=== PATIENT | male | born 1935 | race Caucasian/White ===

== ENCOUNTER 2023-01-23 18:56 | Observation (INO) | payer MEDICARE, SELFPAY ==
[2023-01-23] VITALS (28 sets, daily range): BP systolic 114–135; BP diastolic 60–69; PULSE 63–82; RESP 7–38; TEMP 36.6; O2SAT 76–98; BMI 28.7
--- NOTE | 2023-01-23 | CT_ITS ---
The [address] [address] Patient Name: RACHEL HOLLINGSWORTH MRN: [id number] date: 1935 Sex: M Assigned Patient Location: ER Current Patient Location: ER Accession/Order Number: [id number] Exam Date: 01/23/2023 18:55 Report Date: 01/23/2023 19:26 At the request of: KEYANA LITTLE Procedure: CT stroke head/brain wo con EXAMINATION: CT stroke head/brain wo con, 01/23/2023 6:55 PM EDT HISTORY: Altered mental status. COMPARISON: CT head 05/05/2022. TECHNIQUE: CT scan of the head was performed without IV contrast. CT dose reduction technique was used, including Automated Exposure Control. FINDINGS: BRAIN PARENCHYMA/CSF SPACES: Moderately enlarged ventricles and sulci consistent with atrophy. There is no hemorrhage, mass effect or midline shift. There is atherosclerotic calcification of the vertebral and bilateral carotid arteries. 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 There is an additional stable chronic left occipital infarct. There is low-attenuation throughout the white matter compatible with chronic microvascular ischemia. There is a small chronic lacunar infarct in the left blanco radiata and a small chronic lacunar infarct in the right internal capsule. PARANASAL SINUSES: Clear. SKULL BASE AND CALVARIUM: Normal. EXTRACRANIAL SOFT TISSUES: Normal. CT/CT stroke head/brain wo con IMPRESSION: 1. No acute intracranial abnormality. 2. Atherosclerotic calcification, chronic microvascular ischemia and chronic infarcts as described above. 3. Moderate atrophy. Electronically authenticated by: STEVO DAVID Date: 01/23/2023 19:26
--- NOTE | 2023-01-23 19:09 | ECG_ITS ---
The [facility] Test Date: 2023-01-23 Pat Name: RACHEL HOLLINGSWORTH Department: Room: - Gender: Male Nursing Coordinator: : 1935 Requested By: DEVEN NINO Order Number: [id number] Reading MD: KATHE DAVE Measurements Intervals [place] Rate: 66 P: 30 DC: 192 QRS: -40 QRSD: 140 T: 30 QT: 436 QTc: 450 Interpretive Statements 1100 Sinus rhythm 2450 Right bundle branch block 7200 Abnormal left axis deviation 9150 abnormal ECG No previous ECG available for comparison Electronically Signed On 01-24-2023 7:25:14 EDT by KATHE DAVE
--- NOTE | 2023-01-23 19:23 | ED_ITS ---
HPI - General Adult General Chief complaint: Syncope Stated complaint: SYNCOPY Time Seen by Provider: 01/23/23 19:01 Mode of arrival: ambulance History of Present Illness HPI narrative: patient apparently had a syncopal episode at home. He was also confused. EMS b rought the patient for evaluation. On arrival he does not know why he was here. He does not recall passing out or falling. He denies any injury to the head, neck or back. He denies any extremity injury. He denies any chest pain or shortness of breath. He denies any nausea, vomiting, diarrhea. He denies any recent injury or illness. His only complaint is some global weakness Related Data Allergies Allergy/AdvReac Type Severity Reaction Status Date / Time codine Allergy Unknown Uncoded 01/23/23 19:28 Exam Narrative Exam Narrative: Nurses notes and vital signs reviewed and patient is not hypoxic. afebrile General: Well-appearing and in no apparent distress. Skin: Warm, dry, no pallor noted. No rash. Head: Normocephalic, atraumatic. Neck: Supple, non-tender. Eye: Pupils are equal, round and EOMI. No scleral icterus. Ears, Nose, Mouth, and Throat: TM are clear, no nasal mucosal hypertrophy. Oral mucosa is moist, no posterior oropharynx erythema, uvula is mid-line Cardiovascular: Regular Rate and Rhythm without murmur, gallop or rub. Respiratory: No accessory muscle use or respiratory distress. Lungs are clear to auscultation, no wheezing, rales or rhonchi Chest Wall: no tenderness Back: No midline thoracic or lumbar vertebral tenderness. No CVA tenderness Musculoskeletal: normal ROM, no calf or popliteal tenderness, no lower extremity edema/swelling GI: Abdomen is soft, non-distended. Normal bowel sounds. No masses appreciated. No tenderness to palpation. No rebound, guarding, or rigidity noted. Neurological: A&O x4. mild left facial paralysis noted. No additional cranial nerve dysfunction observed. No truncal ataxia. Moves all extremities. Sensation intact. no upper or lower extremity drift. No neglect. able to repeat questions. NIH score equal 1 Psychiatric: Cooperative and interactive. Normal mood and affect. Constitutional Vital Signs, click to edit/add: Last Vital Signs Pulse 74 01/23/23 21:30 Resp 19 01/23/23 21:30 BP 132/63 01/23/23 21:00 Pulse Ox 97 01/23/23 21:30 O2 Del Method Room Air 01/23/23 19:07 Course Vital Signs Vital signs: Vital Signs Pulse Oximetry 98 01/23/23 19:06 Pulse Rate 74 01/23/23 21:30 Respiratory Rate 19 01/23/23 21:30 Blood Pressure 132/63 01/23/23 21:00 Pulse Oximetry 97 01/23/23 21:30 Oxygen Delivery Method Room Air 01/23/23 19:07 Medical Decision Making MDM Narrative Medical decision making narrative: patient was immediately sent for CT scanning of the brain per stroke protocol. He was then placed in room five.Patient was placed on cardiac rehab nurse and EKG obtained. Blood drawn and sent for evaluation. Urine also ordered to be obtained and sent for testing. When non contrast head CT was without ICH he was sent for CTA head and neck. Minimal decrease in Na, mildly increased BUN and Cr, elevated Glucose at 188, normal LFTs and negative UA. Nothing to account for the patient's syncope or altered mentation. On recheck at 2134, the patient's left facial asymmetry has resolved and he can move the face normally. His mentation has also improved. NIH now zero. 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 Patient does not have a local PCP - he used to see Dr Avila but I fired him . Call placed to Dr Reinoso, the on-call hospitalist, to discuss admission to Dr Mistry's service for further evaluation and monitoring following his syncopal event and likely TIA. We discussed the possibility of seizure vs syncope. In the end, he agreed to admit the patient on behalf of Dr Mistry, the day hospitalist paper cone grader - On observation basis, telemetry monitoring, [facility] floor. Patient agreeable to admission after discussion of his results once when his mentation had improved. Differential Diagnosis Differential Diagnosis: syncope, seizure, TIA, CVA, hyponatremia, dysrhythmia, orthostasis, UTI Lab Data Lab results reviewed: Yes I reviewed the patient's lab results Labs: Lab Results 01/23/23 01/23/23 Range/Units 19:25 20:00 WBC 7.3 (4.0-11.0) 10^3/uL RBC 3.79 L (4.70-6.10) 10^6/uL Hgb 11.4 L (14.0-18.0) g/dL Hct 33.4 L (42.0-54.0) % MCV 88.1 (80.0-94.0) fL MCH 30.1 (25.9-34.0) pg MCHC 34.1 (29.9-35.2) g/dL RDW 12.9 (11.0-15.0) % Plt Count 216 (150-450) 10^3/uL MPV 10.1 (9.5-13.5) fL Neut % (Auto) 51.3 (43.0-75.0) % Lymph % (Auto) 30.4 (20.5-60.0) % [place] % (Auto) 7.2 (1.7-12.0) % Eos % (Auto) 9.3 H (0.9-7.0) % Baso % (Auto) 1.4 (0.2-2.0) % Neut # (Auto) 3.8 (1.4-6.5) 10^3/uL Lymph # (Auto) 2.2 (1.2-3.8) 10^3/uL [place] # (Auto) 0.5 (0.3-0.8) 10^3/uL Eos # (Auto) 0.7 (0.0-0.7) 10^3/uL Baso # (Auto) 0.1 (0.0-0.1) 10^3/uL Abs Immat Gran (auto) 0.03 (0.00-0.03) 10^3/uL Imm/Tot Granulo (auto) 0.4 (0.0-0.5) % Sodium 133 L (136-145) mmol/L Potassium 3.8 (3.5-5.1) mmol/L Chloride 101 (98-107) mmol/L Carbon Dioxide 26.7 (21.0-32.0) mmol/L Anion Gap 9.1 BUN 25.0 H (7.0-18.0) mg/dL Creatinine 1.94 H (0.70-1.30) mg/dL Est GFR ( Amer) 40 L (>=60) Est GFR (Non-Af Amer) 33 L (>=60) BUN/Creatinine Ratio 12.9 Glucose 188 H (74-106) mg/dL Calcium 8.4 L (8.5-10.1) mg/dL Total Bilirubin 0.2 (0.2-1.0) mg/dL AST 11 L (15-37) U/L ALT <6 L (16-63) U/L Alkaline Phosphatase 74 (46-116) U/L Troponin I High Sens 15.4 (4.0-76.1) pg/mL NT-Pro-B Natriuret Pep 1153.0 (<=1800.0) pg/mL Total Protein 6.6 (6.4-8.2) g/dL Albumin 2.8 L (3.4-5.0) g/dL Globulin 3.8 g/dL Albumin/Globulin Ratio 0.7 Urine Color Lt. yellow (YELLOW) Urine Clarity Clear (CLEAR) Urine pH 6.0 (5.0-9.0) Ur Specific [place] 1.020 (1.005-1.025) Urine Protein >=300 A (NEG/TRACE) mg/dL Urine Glucose (UA) 500 A (NEGATIVE) mg/dL Urine Ketones Negative (NEGATIVE) mg/dL Urine Occult Blood Negative (NEGATIVE) Urine Nitrite Negative (NEGATIVE) Urine Bilirubin Negative (NEGATIVE) Urine Urobilinogen 0.2 (0.2-1.0) EU/dL Ur Leukocyte Esterase Negative (NEGATIVE) Urine RBC 0-2 (0-2) #/HPF Urine WBC 0-2 A (NONE SEEN) #/HPF Ur Squamous Epith Cells Rare (NONE/RARE) #/LPF Urine Crystals None seen (None Seen) #/HPF Urine Bacteria None seen (NONE SEEN) #/HPF Urine Casts Seen A (NONE SEEN) #/LPF Hyaline Casts Few Coarse Granular Casts Rare Urine Mucus Trace A (NONE SEEN) Ur Culture Indicated? No Imaging Data CT scan - head: Radiologist's impression: Patient Name: RACHEL HOLLINGSWORTH MRN: [id number] date: 1935 Sex: M Assigned Patient Location: ER Current Patient Location: ER Accession/Order Number: [id number] Exam Date: 01/23/2023 18:55 Report Date: 01/23/2023 19:26 At the request of: KEYANA LITTLE Procedure: CT stroke head/brain wo con EXAMINATION: CT stroke head/brain wo con, 01/23/2023 6:55 PM EDT HISTORY: Altered mental status. COMPARISON: CT head 05/05/2022. TECHNIQUE: CT scan of the head was performed without IV contrast. CT dose reduction technique was used, including Automated Exposure Control. FINDINGS: BRAIN PARENCHYMA/CSF SPACES: Moderately enlarged ventricles and sulci consistent with atrophy. There is no hemorrhage, mass effect or midline shift. There is atherosclerotic calcification of the vertebral and bilateral carotid arteries. 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 There is an additional stable chronic left occipital infarct. There is low-attenuation throughout the white matter compatible with chronic microvascular ischemia. There is a small chronic lacunar infarct in the left blanco radiata and a small chronic lacunar infarct in the right internal capsule. PARANASAL SINUSES: Clear. SKULL BASE AND CALVARIUM: Normal. EXTRACRANIAL SOFT TISSUES: Normal. IMPRESSION: 1. No acute intracranial abnormality. 2. Atherosclerotic calcification, chronic microvascular ischemia and chronic infarcts as described above. 3. Moderate atrophy. Electronically authenticated by: STEVO DAVID Date: 01/23/2023 19:26 CT angio head & neck: Radiologist's impression: Patient Name: RACHEL HOLLINGSWORTH MRN: [id number] date: 1935 Sex: M Assigned Patient Location: Current Patient Location: Accession/Order Number: [id number] Exam Date: 01/23/2023 20:26 Report Date: 01/23/2023 21:29 At the request of: KEYANA LITTLE Procedure: CT angio neck EXAM: CT angio head, CT angio neck HISTORY: syncope, left facial paralysis COMPARISON: Head CT 01/23/2023. CT cervical spine 05/05/2022. CT head and neck angiogram 12/31/2019 TECHNIQUE: Contrast-enhanced axial CT to the head and neck was performed in the angiographic phase. Coronal and sagittal reformats provided. Dose reduction CT techniques were used, including automated exposure control. FINDINGS: NECK: There is a two-vessel aortic arch. Calcific atherosclerosis of the origins of the common carotid arteries without significant flow limiting stenosis. There is also calcific atherosclerosis at the origin of the right vertebral artery which is mildly narrowed. Left vertebral artery origin is occluded. The left vertebral artery is completely occluded at its origin with partial reconstitution seen distally near the skull base at the level of C1 and C2 vertebral bodies and finally with complete occlusion as it enters the skull base to the level of the basilar confluence. The right vertebral artery remains patent without dissection or significant flow-limiting stenosis. No aneurysmal dilatation. Calcific atherosclerosis of the, carotid arteries bilaterally without significant flow limiting stenosis. At the level of the carotid bulbs there is severe calcific atherosclerosis seen on the right with approximately 55 % narrowing of the proximal internal carotid artery by NASCET criteria. Calcific atherosclerosis also seen at the left carotid bulb without significant flow-limiting stenosis. The remainder of the internal carotid and external carotids are patent. HEAD: Calcific atherosclerosis of the cavernous internal carotid arteries without significant flow limiting stenosis. Bilateral ophthalmic arteries are pacified with contrast. The anterior cerebral and middle cerebral arteries are patent without flow-limiting stenosis or aneurysmal dilatation. Normal appearance of the anterior communicating artery. Posterior communicating arteries are not visualized. The bilateral posterior-inferior cerebellar arteries are not visualized. Prominent anterior inferior cerebellar arteries are visualized and appear patent. Superior cerebellar and the bilateral posterior cerebral arteries are patent. Normal appearance of the basilar artery. Other: Left thyroid lobe nodule measures approximately 11 mm. No cervical lymphadenopathy. The lung apices are clear. No acute or aggressive osseous abnormality. 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 Otherwise, no significant intracranial flow-limiting stenosis. Consider MRI for further evaluation. Calcific atherosclerosis of the carotid bulbs worst on the right with approximately 55 % narrowing of the proximal internal carotid artery. Electronically authenticated by: BONIFACIO PERALES Date: 01/23/2023 21:29 ECG Data Interpretation: EKG interpretation: Emergency Department physician interpretation. Normal sinus rhythm at 66bpm. RBBB. Left axis. normal VT and QTc intervals. no ST segment elevation or depression. Critical Care Time Critical Care Time Critical Care Time: Yes Total Critical Care Time: 45 (45 minutes Critical Care Time: ___ minutes, critical care time is separate from any procedures that are performed. The following was considered in the determination of critical care but not limited to the level medical decision-making, intensive cardiac and/or respiratory monitor, frequent vital sig) Attestation: Critical Care Time: 45 minutes, critical care time is separate from any procedures that are performed. The following was considered in the determination of critical care but not limited to the level medical decision-making, intensive cardiac and/or respiratory monitor, frequent vital sign monitoring, evaluation of laboratory studies, evaluation of a radiographic studies, oxygen monitoring a nd constant monitoring. Discharge Plan Discharge Chief Complaint: Syncope Clinical Impression: TIA (transient ischemic attack), Syncope Patient Disposition: Admitted as Observation Time of Disposition Decision: 22:00 Additional Instructions: Dr Mistry's service; admission orders per Dr Reinoso
--- NOTE | 2023-01-23 19:30 | CT_ITS ---
The [address] [address] Patient Name: RACHEL HOLLINGSWORTH MRN: [id number] date: 1935 Sex: M Assigned Patient Location: ER Current Patient Location: ER Accession/Order Number: [id number] Exam Date: 01/23/2023 20:26 Report Date: 01/23/2023 21:29 At the request of: KEYANA LITTLE Procedure: CT angio head EXAM: CT angio head, CT angio neck HISTORY: syncope, left facial paralysis COMPARISON: Head CT 01/23/2023. CT cervical spine 05/05/2022. CT head and neck angiogram 12/31/2019 TECHNIQUE: Contrast-enhanced axial CT to the head and neck was performed in the angiographic phase. Coronal and sagittal reformats provided. Dose reduction CT techniques were used, including automated exposure control. FINDINGS: NECK: There is a two-vessel aortic arch. Calcific atherosclerosis of the origins of the common carotid arteries without significant flow limiting stenosis. There is also calcific atherosclerosis at the origin of the right vertebral artery which is mildly narrowed. Left vertebral artery origin is occluded. The left vertebral artery is completely occluded at its origin with partial reconstitution seen distally near the skull base at the level of C1 and C2 vertebral bodies and finally with complete occlusion as it enters the skull base to the level of the basilar confluence. The right vertebral artery remains patent without dissection or significant flow-limiting stenosis. No aneurysmal dilatation. Calcific atherosclerosis of the, carotid arteries bilaterally without significant flow limiting stenosis. At the level of the carotid bulbs there is severe calcific atherosclerosis seen on the right with approximately 55 % narrowing of the proximal internal carotid artery by NASCET criteria. Calcific atherosclerosis also seen at the left carotid bulb without significant flow-limiting stenosis. The remainder of the internal carotid and external carotids are patent. HEAD: Calcific atherosclerosis of the cavernous internal carotid arteries without significant flow limiting stenosis. Bilateral ophthalmic arteries are pacified with contrast. The anterior cerebral and middle cerebral arteries are patent without flow-limiting stenosis or aneurysmal dilatation. Normal appearance of the anterior communicating artery. Posterior communicating arteries are not visualized. The bilateral posterior-inferior cerebellar arteries are not visualized. Prominent anterior inferior cerebellar arteries are visualized and appear patent. Superior cerebellar and the bilateral posterior cerebral arteries are patent. Normal appearance of the basilar artery. Other: Left thyroid lobe nodule measures approximately 11 mm. No cervical lymphadenopathy. The lung apices are clear. No acute or aggressive osseous abnormality. 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 Otherwise, no significant intracranial flow-limiting stenosis. Consider MRI for further evaluation. Calcific atherosclerosis of the carotid bulbs worst on the right with approximately 55 % narrowing of the proximal internal carotid artery. Electronically authenticated by: BONIFACIO PERALES Date: 01/23/2023 21:29
--- NOTE | 2023-01-23 19:30 | CT_ITS ---
The [address] [address] Patient Name: RACHEL HOLLINGSWORTH MRN: [id number] date: 1935 Sex: M Assigned Patient Location: ER Current Patient Location: Accession/Order Number: [id number] Exam Date: 01/23/2023 20:26 Report Date: 01/23/2023 21:29 At the request of: KEYANA LITTLE Procedure: CT angio neck EXAM: CT angio head, CT angio neck HISTORY: syncope, left facial paralysis COMPARISON: Head CT 01/23/2023. CT cervical spine 05/05/2022. CT head and neck angiogram 12/31/2019 TECHNIQUE: Contrast-enhanced axial CT to the head and neck was performed in the angiographic phase. Coronal and sagittal reformats provided. Dose reduction CT techniques were used, including automated exposure control. FINDINGS: NECK: There is a two-vessel aortic arch. Calcific atherosclerosis of the origins of the common carotid arteries without significant flow limiting stenosis. There is also calcific atherosclerosis at the origin of the right vertebral artery which is mildly narrowed. Left vertebral artery origin is occluded. The left vertebral artery is completely occluded at its origin with partial reconstitution seen distally near the skull base at the level of C1 and C2 vertebral bodies and finally with complete occlusion as it enters the skull base to the level of the basilar confluence. The right vertebral artery remains patent without dissection or significant flow-limiting stenosis. No aneurysmal dilatation. Calcific atherosclerosis of the, carotid arteries bilaterally without significant flow limiting stenosis. At the level of the carotid bulbs there is severe calcific atherosclerosis seen on the right with approximately 55 % narrowing of the proximal internal carotid artery by NASCET criteria. Calcific atherosclerosis also seen at the left carotid bulb without significant flow-limiting stenosis. The remainder of the internal carotid and external carotids are patent. HEAD: Calcific atherosclerosis of the cavernous internal carotid arteries without significant flow limiting stenosis. Bilateral ophthalmic arteries are pacified with contrast. The anterior cerebral and middle cerebral arteries are patent without flow-limiting stenosis or aneurysmal dilatation. Normal appearance of the anterior communicating artery. Posterior communicating arteries are not visualized. The bilateral posterior-inferior cerebellar arteries are not visualized. Prominent anterior inferior cerebellar arteries are visualized and appear patent. Superior cerebellar and the bilateral posterior cerebral arteries are patent. Normal appearance of the basilar artery. Other: Left thyroid lobe nodule measures approximately 11 mm. No cervical lymphadenopathy. The lung apices are clear. No acute or aggressive osseous abnormality. 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 Otherwise, no significant intracranial flow-limiting stenosis. Consider MRI for further evaluation. Calcific atherosclerosis of the carotid bulbs worst on the right with approximately 55 % narrowing of the proximal internal carotid artery. Electronically authenticated by: BONIFACIO PERALES Date: 01/23/2023 21:29
[2023-01-23 19:33] LABS: Basophils Absolute Auto 0.1 10^3/uL (0.0-0.1); Basophils Percent Auto 1.4 % (0.2-2.0); Eosinophils Absolute Auto 0.7 10^3/uL (0.0-0.7); Eosinophils Percent Auto 9.3 % (0.9-7.0); Hematocrit 33.4 % (42.0-54.0); Hemoglobin 11.4 g/dL (14.0-18.0); Immature Granulocytes Abs Auto 0.03 10^3/uL (0.00-0.03); Immature Granulocytes Pct Auto 0.4 % (0.0-0.5); Lymphocytes Absolute Auto 2.2 10^3/uL (1.2-3.8); Lymphocytes Percent Auto 30.4 % (20.5-60.0); Mean Corpuscular HGB Conc 34.1 g/dL (29.9-35.2); Mean Corpuscular Hemoglobin 30.1 pg (25.9-34.0); Mean Corpuscular Volume 88.1 fL (80.0-94.0); Mean Platelet Volume 10.1 fL (9.5-13.5); Monocytes Absolute Auto 0.5 10^3/uL (0.3-0.8); Monocytes Percent Auto 7.2 % (1.7-12.0); Neutrophils Absolute Auto 3.8 10^3/uL (1.4-6.5); Neutrophils Percent Auto 51.3 % (43.0-75.0); Platelet Count 216 10^3/uL (150-450); Red Blood Count 3.79 10^6/uL (4.70-6.10); Red Cell Distribution Width 12.9 % (11.0-15.0); White Blood Count 7.3 10^3/uL (4.0-11.0)
[2023-01-23] MEDS: 0.9 % SODIUM CHLORIDE 1,000 ML 1000 ML IV (19:40)
[2023-01-23 19:58] LABS: Albumin Globulin Ratio 0.7; Albumin Level 2.8 g/dL (3.4-5.0); Alkaline Phosphatase 74 U/L (46-116); Anion Gap 9.1; Aspartate Amino Transferase 11 U/L (15-37); BUN Creatinine Ratio 12.9; Bilirubin Total 0.2 mg/dL (0.2-1.0); Calcium 8.4 mg/dL (8.5-10.1); Carbon Dioxide 26.7 mmol/L (21.0-32.0); Chloride 101 mmol/L (98-107); Estimated GFR (African America 40 (>=60); Estimated GFR (Non-African Ame 33 (>=60); Globulin 3.8 g/dL; Glucose 188 mg/dL (74-106); Potassium 3.8 mmol/L (3.5-5.1); Sodium 133 mmol/L (136-145); Total Protein 6.6 g/dL (6.4-8.2); Troponin I High Sensitivity 15.4 pg/mL (4.0-76.1)
[2023-01-23 20:00] LABS: Alanine Aminotransferase <6 U/L (16-63)
[2023-01-23 20:18] LABS: Bilirubin Urine NEGATIVE (NEGATIVE); Blood Urine NEGATIVE (NEGATIVE); Clarity Urine CLEAR (CLEAR); Color Urine LT. YELLOW (YELLOW); Glucose Urine UA 500 mg/dL (NEGATIVE); Ketones Urine NEGATIVE (NEGATIVE); Leukocyte Esterase Urine NEGATIVE (NEGATIVE); Nitrite Urine NEGATIVE (NEGATIVE); Protein Urine >=300 mg/dL (NEG/TRACE); Urobilinogen Urine 0.2 EU/dL (0.2-1.0)
[2023-01-23 20:19] LABS: Urine Microscopic Indicated YES
[2023-01-23 20:31] LABS: Bacteria Urine NONE SEEN #/HPF (NONE SEEN); Cast Seen? SEEN #/LPF (NONE SEEN); Coarse Granular Casts Urine RARE; Crystals Seen? None Seen #/HPF (None Seen); Hyaline Casts Urine FEW; Mucus Urine TRACE (NONE SEEN); RBC Urine 0-2 #/HPF (0-2); Squamous Epithelial Cell Urine RARE #/LPF (NONE/RARE); Urine Culture Indicated NO; WBC Urine 0-2 #/HPF (NONE SEEN)
--- NOTE | 2023-01-23 23:46 | PC.NURSE ---
Patient has red area to coccyx, both legs red and scaly. Toenails long and thick.
[2023-01-24] VITALS (14 sets, daily range): BP systolic 124–171; BP diastolic 62–81; PULSE 62–79; RESP 16–20; TEMP 36.1–37; O2SAT 93–95
--- NOTE | 2023-01-24 | MR_ITS ---
[address] [address] Patient Name: RACHEL HOLLINGSWORTH MRN: [id number] date: 1935 Sex: M Assigned Patient Location: MS Current Patient Location: MS Accession/Order Number: [id number] Exam Date: 01/24/2023 14:55 Report Date: 01/24/2023 16:50 At the request of: BERTA CROSS Procedure: MR angio neck wo con EXAM: MR angio neck wo con HISTORY: left vertebral artery occlusion COMPARISON: CT angiogram of the neck from 01/23/2023. TECHNIQUE: [id number] MR angiogram was obtained through the neck. Three-dimensional rotational reconstructions were acquired on independent workstation.Carotid stenosis is reported according to NASCET criteria. FINDINGS: Loss of normal flow signal within the left vertebral artery correlating to the known occlusion on the previous CT angiogram of the neck. The right vertebral artery is patent. The aortic arch and branch vessel origins are not included. Calcified plaque of the right internal carotid artery proximally with approximately 62% stenosis. Left proximal internal carotid artery plaque with less than 50% stenosis. MR/MR angio neck wo con IMPRESSION: 1. Right proximal internal carotid artery 62% stenosis. 2. Occlusion of the left vertebral artery. Electronically authenticated by: DUANE CARPENTER Date: 01/24/2023 16:50
--- NOTE | 2023-01-24 00:19 | MR_ITS ---
The [address] [address] Patient Name: RACHEL HOLLINGSWORTH MRN: [id number] date: 1935 Sex: M Assigned Patient Location: MS Current Patient Location: MS Accession/Order Number: [id number] Exam Date: 01/24/2023 14:55 Report Date: 01/24/2023 16:39 At the request of: ENEDINA Lisset SISTER Procedure: MR angio head wo con EXAM: MR angio head wo con HISTORY: CVA COMPARISON: CT angiogram of the head from 01/23/2023. TECHNIQUE: [id number] MR angiogram was performed through the head. Three-dimensional rotational reconstructions were acquired workstation. FINDINGS: Calcified plaque of the internal carotid arteries with moderate stenosis of the cavernous portions. The middle cerebral arteries, anterior cerebral arteries, and the anterior communicating artery are patent. The left vertebral artery flow-void is decreased in conspicuity from prior correlating to the occlusion on previous CT angiogram. The right vertebral artery, bilateral posterior inferior cerebellar arteries, superior cerebellar arteries, and the posterior cerebral arteries are patent. No aneurysm. MR/MR angio head wo con IMPRESSION: 1. Moderate stenosis of the internal carotid arteries cavernous segments. 2. Occlusion of left vertebral artery again noted. Electronically authenticated by: DUANE CARPENTER Date: 01/24/2023 16:39
--- NOTE | 2023-01-24 00:24 | CA_ITS ---
Patient: RACHEL HOLLINGSWORTH Exam Date: 01/24/2023 : 1935 Gender:M Ordering : Libby Mistry . Admission #: [id number] Family : DR CARVALHO Reina NINO Order #: [id number] CLICK HERE TO VIEW EXAM ECHOCARDIOGRAM REPORT PROCEDURE: CA ECHO DOPPLER COMPLETE INDICATIONS: Syncope, CABG, CHF, hypertension, diabetes COMPARISON: None. DESCRIPTION: COMPLETE ECHOCARDIOGRAM Real-time transthoracic echocardiography with 2D, M-mode, spectral and color flow Doppler performed. QUALITY: Technical quality was good. LEFT VENTRICLE: Normal chamber size. Thickened septal wall. Normal systolic function. LV EF: Normal left ventricular ejection fraction, (>55%). DIASTOLIC: Normal diastolic function. ATRIAL SEPTUM: LEFT ATRIUM: Normal chamber size. RIGHT ATRIUM: Normal chamber size. RIGHT VENTRICLE: Normal chamber size. Normal right ventricular systolic function. TRICUSPID VALVE: Normal mobility and thickness. No stenosis with trivial regurgitation. No evidence of pulmonary hypertension. RVSP 25 mmHg MITRAL VALVE: Normal mobility and thickness. No evidence of mitral valve stenosis. Mild mitral annular calcification. Trivial mitral regurgitation. AORTIC VALVE: Normal trileaflet appearance. Mildly calcified aortic valve. Normal leaflet mobility. No evidence of aortic valve stenosis. No aortic regurgitation. AORTIC ROOT: Normal diameter and appearance. PULMONIC VALVE: Normal thickness and mobility. No stenosis. Trivial regurgitation. PERICARDIUM: No evidence of pericardial effusion. IVC: Not well visualized. PLEURA: CONCLUSION: 1. Normal ventricular systolic function. LVEF is 55%. 2. Normal diastolic function. 3. No significant valvular dysfunction. 4. Normal right-sided pressures. 5. No pericardial effusion. Adult Echocardiography Procedure Report Left Ventricle LVEDD (3.7 - 5.6 cm): 4.00 cm LVESD (2.2 - 4.0 cm): 2.74 cm LVIVS thickness (0.6 - 1.2 cm): 1.50 cm LVPW thickness (0.5 - 1.0 cm): 1.11 cm e': 0.09 m/s E - e': 8.57 LVOT Max Gradient: 4.19 mm[Hg], 3.82 mm[Hg] LVOT Area (cm2): 1.00 m/s Peak Velocity (LVOT): 1.02 m/s, 0.98 m/s Mean Velocity (LVOT): 0.73 m/s LVOT Diameter 2.35 cm Left Atrium LA Volume Index (2D A2C): 25.26 ml/m2 Left Atrium Systolic Dimension: 3.58 cm Mitral Valve MV E to A Ratio: 0.71 Mitral Valve A-Wave Peak Velocity: 1.04 m/s Mitral Valve E-Wave Peak Velocity: 0.74 m/s Right Ventricle Aorta AO Root Diam: 4.15 cm Ascending Ao Diam: 2.71 cm Aortic Valve AoV Area (Peak Corky): 2.95 cm2, 3.02 cm2 AoV Area (VTI): 2.90 cm2, 2.83 cm2 Peak Velocity(Antegrade Flow): 1.47 m/s Peak Gradient(Antegrade Flow): 8.66 mm[Hg] Mean Velocity(Antegrade Flow): 0.95 m/s Mean Gradient(Antegrade Flow): 4.22 mm[Hg] Velocity Time Integral: 33.50 cm Tricuspid Valve Peak Velocity (Regurgitant Flow): 2.34 m/s Pulmonic Valve Peak Velocity: 1.06 m/s Peak Gradient: 4.95 mm[Hg], 4.11 mm[Hg] Right Atrium Right Atrium Systolic Pressure: 29.62 ml, 29.62 ml Dictated by: Benjamin Taylor M.D. on 01/24/2023 at 17:26 Approved by: Benjamin Taylor M.D. on 01/24/2023 at 17:28
--- NOTE | 2023-01-24 00:27 | P.PN_ITS ---
Progress Note: Subjective Subjective Interval history: CC: Syncopal episode HPI: This is a 87 years old male who brought in to emergency room for evaluation of a syncopal episode. Patient is a poor historian. Majority of information obtained from the medical records and from the medical staff. Patient tells me that he has not been feeling himself for the last few days, but cannot specify what exactly been bothering him. I was trying to get out of patient if any new medications been started or any medications stopped lately but he is not sure about it. Patient is now taking his medications consistently either. He is in charge of preparing his medical pillbox by himself. Patient lives with his [facility]. Apparently lately it was an infestation of the bedbugs in the house. They have been trying to remedy that. Patient denies any chest pain, palpitations, shortness of breath, fever, cough, nausea, vomiting or diarrhea. Originally on presentation to emergency room patient was oriented x1. Lately his condition improved and he is back to his normal self. Stroke work-up was done in the emergency room and has been negative so far. Exam Narrative Exam Narrative: Physical Exam: Not in distress, pleasant, lucid, cooperative, Head - atraumatic, eyes - pupils equal, round, reactive to light, extra ocular movement intact, MMM Neck - supple, thyroid not enlarged, LN not palpated Lungs - clear to auscultation, no dullness on percussion CVS - heart sounds S1, S2, no additional murmurs gallop, regular rate and rhythm Gastrointestinal?abdomen is soft, non-tender, non-distended, no organomegaly, positive bowel sounds Extremities no clubbing, cyanosis or edema Neurological?cranial nerve II?XII grossly intact, no meningeal signs, no cerebellar signs, no sensory deficit Musculoskeletal - 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, no effusions, ROM preserved Dermatological - the skin dry, warm, no rashes Psychiatric?patient is AAO X3, patient has normal affect Constitutional Vital Signs, click to edit/add: Last Vital Signs Temp 97.8 F 01/23/23 22:58 Pulse 79 01/24/23 00:00 Resp 18 01/23/23 22:58 BP 118/68 01/23/23 22:58 Pulse Ox 97 01/23/23 22:58 O2 Del Method Room Air 01/23/23 22:58 Progress Note: Objective Labs Labs: Short CBC 01/23/23 Range/Units 19:25 WBC 7.3 (4.0-11.0) 10^3/uL Hgb 11.4 L (14.0-18.0) g/dL Hct 33.4 L (42.0-54.0) % Plt Count 216 (150-450) 10^3/uL BMP 01/23/23 19:25 Sodium 133 L Potassium 3.8 Chloride 101 Carbon Dioxide 26.7 BUN 25.0 H Creatinine 1.94 H Glucose 188 H Calcium 8.4 L Liver Function 01/23/23 Range/Units 19:25 Total Bilirubin 0.2 (0.2-1.0) mg/dL AST 11 L (15-37) U/L ALT <6 L (16-63) U/L Alkaline Phosphatase 74 (46-116) U/L Albumin 2.8 L (3.4-5.0) g/dL Urine 01/23/23 Range/Units 20:00 Urine Color Lt. yellow (YELLOW) Urine Clarity Clear (CLEAR) Urine pH 6.0 (5.0-9.0) Ur Specific [place] 1.020 (1.005-1.025) Urine Protein >=300 A (NEG/TRACE) mg/dL Urine Glucose (UA) 500 A (NEGATIVE) mg/dL Progress Note: A&P Assessment and Plan (1) Syncope: Assessment and Plan: 1. Syncope - reason unclear - monitor on telemetry - gentle IVF - check orthostatic VSs - check ECHO and carotid us - trend Myron in case this was related to acute CAD - fall precautions (2) TIA (transient ischemic attack): Assessment and Plan: CVA - patient admitted with acute neurological deficit - As per evaluation in ER patient did not qualify for a tPa treatment - Admit to telemetry - Frequent neuro-checks - Will obtain MRI of the brain and MRA of the Head and Neck - Will obtain an ECHO with bubbles - F/U with Neurologist for further recommendations Secondary prevention ? will make sure patient is on Full dose of EC ASA and at least moderate potency dose of Atorvastatin unless contraindicated Tertiary prevention ? fall/aspiration precautions are in place - DVT prophylaxis (3) Hypertension: Assessment and Plan: Permissive hypertension going to be allowed Very fine continue home medications (4) Diabetes: Assessment and Plan: DM- continue with ADA diet - hold off oral hypoglycemic agents while in the hospital to avoid hypoglycemic episodes - frequent accuchecks (TID AC + HS) - will provide coverage with long acting insulin as well as short acting insulin with meals - adjust as needed - hypoglycemia protocol in place (5) CHF (congestive heart failure): Assessment and Plan: Patient is dry. I started him on gentle, judicious IV fluid resuscitation (6) Bypass graft stenosis: Assessment and Plan: Very fine continue home medications Plan END: As the provider for the telehealth service, I attest that I introduced myself to the patient, provided my credentials, disclosed by location and determined that based on a review of the patient's chart and discussion with members of the patient's treatment team, telemedicine via real-time, 2 way, and interactive audio and video platform is an appropriate and effective means of providing the service. ?The patient and I mutually agree this visit is appropriate for t elemedicine. ?The virtual encounter was taken place from? [place], [place]. ?The encounter took approximately 35 minutes. ?The nurse was present during the entire time and I was able to move the stethoscope in appropriate directions. ?The patient was evaluated at the Hospital ? Portions of this note may be dictated using [employer] voice recognition software. Variances in spelling and vocabulary are possible and unintentional. Not all errors may be caught and/or corrected. Please notify the author if any discrepancies are noted and/or if the meaning of any statement is unclear.? ? Patient verbally consented for treatment via video visit with patient currently located at the [facility] and provider located in [place]. Telemedicine Attestation Telemedicine Attestation I conducted this encounter from [[place]] via secure live, [id number] video conference with the patient, located at [facility] with [TIA]. Prior to the interview, the risks and benefits of telemedicine were discussed with the patient and verbal consent was obtained.
[2023-01-24] MEDS: ATORVASTATIN CALCIUM 40 MG TABLET PO (01:02)
[2023-01-24] MEDS: ASPIRIN 325 MG TABLET PO ×2 (01:03→08:35)
[2023-01-24] MEDS: 0.9 % SODIUM CHLORIDE 1,000 ML 75 ML IV (01:03)
[2023-01-24 05:07] LABS: Basophils Absolute Auto 0.1 10^3/uL (0.0-0.1); Basophils Percent Auto 1.2 % (0.2-2.0); Eosinophils Absolute Auto 0.5 10^3/uL (0.0-0.7); Eosinophils Percent Auto 6.8 % (0.9-7.0); Hemoglobin 10.4 g/dL (14.0-18.0); Immature Granulocytes Abs Auto 0.02 10^3/uL (0.00-0.03); Immature Granulocytes Pct Auto 0.3 % (0.0-0.5); Lymphocytes Absolute Auto 2.3 10^3/uL (1.2-3.8); Mean Corpuscular HGB Conc 33.5 g/dL (29.9-35.2); Mean Corpuscular Hemoglobin 29.8 pg (25.9-34.0); Mean Corpuscular Volume 88.8 fL (80.0-94.0); Mean Platelet Volume 10.1 fL (9.5-13.5); Monocytes Absolute Auto 0.6 10^3/uL (0.3-0.8); Monocytes Percent Auto 7.4 % (1.7-12.0); Neutrophils Percent Auto 53.3 % (43.0-75.0); Platelet Count 201 10^3/uL (150-450); Red Blood Count 3.49 10^6/uL (4.70-6.10); Red Cell Distribution Width 12.8 % (11.0-15.0); White Blood Count 7.5 10^3/uL (4.0-11.0)
[2023-01-24 05:36] LABS: Magnesium 1.8 mg/dL (1.8-2.4); Prealbumin 18.1 mg/dL (20.9-45.5)
[2023-01-24 05:38] LABS: Chol HDL Ratio 5.9; Cholesterol 229 mg/dL (<=200); HDL Cholesterol 39 mg/dL (40-60); Triglycerides 213 mg/dL (<=150); VLDL CHOLESTEROL 42.6 mg/dL
[2023-01-24 05:41] LABS: Anion Gap 11.4; Calcium 8.1 mg/dL (8.5-10.1); Carbon Dioxide 25.6 mmol/L (21.0-32.0); Chloride 105 mmol/L (98-107); Estimated GFR (African America 43 (>=60); Estimated GFR (Non-African Ame 35 (>=60); Glucose 234 mg/dL (74-106); Sodium 138 mmol/L (136-145)
[2023-01-24] MEDS: INSULIN ASPART 300 UNIT/3 ML PEN SUBQ ×4 (08:32→22:16)
--- NOTE | 2023-01-24 10:40 | CM.NOTE ---
Rounds made with Dr. Mistry, awaiting neurology consult and MRI.
[2023-01-24 11:02] LABS: Glucometer 315 mg/dL (74-106)
--- NOTE | 2023-01-24 11:50 | P.HP_ITS ---
H&P: HPI History of Present Illness Chief complaint: SYNCOPY Narrative: patient is an 87-year-old gentleman with past medical history of insulin- dependent type 2 diabetes, hypertension, hyperlipidemia, who had a quadruple bypass with stent placement over the years and a ischemic stroke approximately three years ago. Patient was brought in to the Emergency Room yesterday with an episode of passing out. Patient states that he was the kitchen table and speaking with his grandson and before he knew it he was out. He denies falling and striking his head and it was the grandson called EMS. He says that he has been without his medications for several weeks possibly months. He has had a stockpile of his insulin and last had it yesterday. He has skipped around pharmacies as of late and said the latest he has been in [facility]. It doesn't sound like patient sees a family physician routinely but he does follow regularly with Dr. Calloway of [facility]. This morning he is in no acute distress he denies any issues or complaints he said he is just felt weak but he is also not been taking his medication like he supposed to. He denies any issues with speech or swallowing denies any numbness and tingling or visual changes. He says he lives in his own home but his granddaughter and grea t-grandchildren live in the home as well. He has been having many issues with bedbugs and has spent a lot of money trying to eradicate them with no success. He feels his granddaughter is very busy and he is not able to get his round or chest medications like he used to. He does have a walker that he uses to get around in the house. Denies any recent falls. He is not having any active chest pain shortness of breath or heart palpitations. He denies any increased swelling or any recent sicknesses. Review of Systems ROS Narrative ROS: a complete review of systems were reviewed with patient and are positive as below or listed in History of Chief Complaint. General: no fever, chills, night sweats Head: no headache, trauma, visual changes, nausea or vomiting Skin: no reported rashes, itching or sores Eyes: no blurriness of vision Ears: no reported hearing loss, vertigo, earache, or tinnitus Throat: no sore throat, hoarseness, swelling of neck, or tongue pain Heart: no chest pain Lungs: no shortness of breath or cough GI: no diarrhea or vomiting/nausea Urinary: no urinary urgency, frequency or pain Neuro: no numbness or tingling HEM: no bleeding issues or bruising ENDO: no thyroid problems Psych: no anxiety or depression [facility] Medical History (Updated 01/24/23 @ 12:02 by Libby Mistry DO) Surgical History Family History Mother Family history of CHF (congestive heart failure) Family history of hypertension Family history of myocardial infarction Father Family history of CHF (congestive heart failure) Family history of COPD (chronic obstructive pulmonary disease) Family history of cancer Family history of diabetes mellitus Family history of hypertension Family history of myocardial infarction Son Family history of cancer Family history of diabetes mellitus Social History Within the past year, how often did you have a drink containing alcohol: never Within the past year, how often did you have six or more drinks on one occasion: never Score interpretation: A score less than 4 is consistent with normal alcohol consumption. 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 Known occupational exposures/hazards: No Highest level of school completed/degree received: 9th grade Are you now , , , , never or living with a partner: In a typical week, how many times do you talk on the telephone with family, friends, or neighbors: never How often do you get together with friends or relatives: never How often do you attend hoahaoism or mandaeism services: never Do you belong to any clubs or organizations such as hoahaoism groups unions, fraternal or athletic groups, or school groups: no Total score: 0 Score interpretation: A score of less than or equal to 1 indicates the most socially isolated. Little interest or pleasure in doing things: nearly every day Feeling down, depressed, or hopeless: nearly every day Feel stressed/tense/nervous/anxious/difficulty sleeping: only a little Life stressors: recent of family or friend Life stressor details: brothers Do you think of yourself as: straight/heterosexual Gender Identity: male Meds Home Medications and Allergies Allergies Allergy/AdvReac Type Severity Reaction Status Date / Time codine Allergy Unknown Uncoded 01/23/23 19:28 Exam Narrative Exam Narrative: General: Patient is alert, and oriented to person, place and time with normal affect, proper hygiene Skin: 2 small papular delgado on the left upper extremity that look like bug bites Head: atraumatic, acephalic Eyes: PERRLA, no nystagmus present, conjunctiva clear, no scleral icterus Ears: normal Tympanic Membrane, normal gross auditory acuity Nose: symmetric, no discharge, no maxillary or frontal sinus tenderness Mouth/Throat: no erythema, exudate, or tonsillar enlargement, missing dentition Neck: no masses palpated, normal thyroid, no JVD or audible carotid bruits Heart: Normal rate and rhythm, no murmurs/rubs/gallops Lungs: no audible wheezes, crackles and normal breath sounds all lung aguero Abdomen: Normal audible bowel sounds, no distension, No palpable masses, no organomegaly, no rebound/guarding/ or rigidity Musculoskeletal: muscle atrophy noted, ROM is limited due to being in hospital bed, no swelling bilateral lower extremities Vascular: Normal carotid, radial, femoral, posterior tibial, and dorsalis pedis pulses Lymph: no supraclavicular, axillary, or anterior/posterior cervical adenopathy Neuro: CN II-X grossly intact, normal sensation upper and lower extremities Constitutional Vital Signs, click to edit/add: Last Vital Signs Temp 97.8 F 01/24/23 05:40 Pulse 72 01/24/23 07:55 Resp 18 01/24/23 05:40 BP 126/62 01/24/23 05:40 Pulse Ox 93 L 01/24/23 05:40 O2 Del Method Room Air 01/24/23 05:40 Results Labs Labs: Short CBC 01/23/23 01/24/23 Range/Units 19:25 04:22 WBC 7.3 7.5 (4.0-11.0) 10^3/uL Hgb 11.4 L 10.4 L (14.0-18.0) g/dL Hct 33.4 L 31.0 L (42.0-54.0) % Plt Count 216 201 (150-450) 10^3/uL BMP 01/23/23 01/24/23 19:25 04:22 Sodium 133 L 138 Potassium 3.8 4.0 Chloride 101 105 Carbon Dioxide 26.7 25.6 BUN 25.0 H 22.0 H Creatinine 1.94 H 1.84 H Glucose 188 H 234 H Calcium 8.4 L 8.1 L Liver Function 01/23/23 Range/Units 19:25 Total Bilirubin 0.2 (0.2-1.0) mg/dL AST 11 L (15-37) U/L ALT <6 L (16-63) U/L Alkaline Phosphatase 74 (46-116) U/L Albumin 2.8 L (3.4-5.0) g/dL Urine 01/23/23 Range/Units 20:00 Urine Color Lt. yellow (YELLOW) Urine Clarity Clear (CLEAR) Urine pH 6.0 (5.0-9.0) Ur Specific [place] 1.020 (1.005-1.025) Urine Protein >=300 A (NEG/TRACE) mg/dL Urine Glucose (UA) 500 A (NEGATIVE) mg/dL Assessment and Plan Assessment and Plan (1) Syncope: Assessment and Plan: Monitor on Telemetry, Cardiology consult, echocardiogram. EKG and electrolytes have all been normal. He has extensive heart history. May benefit from Holter or event monitor as outpatient and close follow up with cards. (2) TIA (transient ischemic attack): Assessment and Plan: No current neurological deficits noted on exam today, patient is alert and oriented to person, place and time. PT/OT for evaluation. CTA of the head and neck showed some chronic microvasular changes and chronic occlusion of the left Vertebral artery and 55% stenosis of the internal carotid Artery. HE is a known CAD patient. Will also get Telestroke input given his history of ischemic stroke prior. Aspirin and lipitor for now but may benefit from plavix. Would appreciate Stroke team input here. MRA head and neck without contrast (3) Hypertension: Assessment and Plan: will provide hydralazine as needed until we can receive a medication list (4) Diabetes: Assessment and Plan: SSI with [facility], [facility] finger sticks (5) CHF (congestive heart failure): Assessment and Plan: echo and cards consult. (6) Bypass graft stenosis: Assessment and Plan: history of CAD, medication non-compliance (7) LILIANA (acute kidney injury): Assessment and Plan: could be chronic vs contrast. monitor, avoid nephrotoxins. Plan patient is a full code lovenox for dvt prophylaxis and aspirin patient is observation, will check MRI today, probable discharge home tomorrow pending all the testing today.
--- NOTE | 2023-01-24 12:58 | SWNOTE1 ---
SW met with pt to discuss dc needs. Pt does live at home with his grand-daughter, her , and her 4 children that range from 8-2. Pt voices they all live with him. Pt uses a walker at home to get around. Pt voiced that his grand-daughter does do the grocery shopping and that his medications come in the mail, but he needs a refill currently. SW and pt discussed dc needs. Pt did talk about going to rehab at nursing facility. SW did let him know he is in observation status at this time and for medicare to pay for rehab he would require 3 day inpt stay. Pt did voice understanding. SW and pt spoke about home health at least coming in. Pt is open to this and he had [facility] home health in the past. SW to send referral to [facility]. SW also reviewed [facility] form with pt, he voiced understanding, no questions. Pt signed form, original given to pt and copy placed in chart. SW also let him know if he is still here Friday we can re-evaluate. Pt did voice his frustrations with the healthcare system.
--- NOTE | 2023-01-24 13:11 | SWNOTE1 ---
Pt did tell SW that his grand-daughter and her do work and they are busy, but if he really needed something then they do help. SW is unsure of the medication issue as pt stated he gets them through mail.
--- NOTE | 2023-01-24 15:23 | SWNOTE1 ---
ZITA received a call back from [facility], they can see in documentation that pt does not have a PCP because he voiced he fired Dr. Avila. In order for [facility] or any company to accept they would need a verbal from Dr. avila that he would follow. ZITA called office and they are closed. SW to follow up Friday with Dr. Hernadez office and they will have to send referral to [facility]. ZITA updated nursing.
[2023-01-24 16:49] LABS: Glucometer 373 mg/dL (74-106)
--- NOTE | 2023-01-24 17:05 | MR_ITS ---
The [place] [id number] Patient Name: RACHEL HOLLINGSWORTH MRN: [id number] date: 1935 Sex: M Assigned Patient Location: MS Current Patient Location: MS Accession/Order Number: [id number] Exam Date: 01/24/2023 18:05 Report Date: 01/25/2023 01:35 At the request of: BERTA CROSS Procedure: MR head/brain wo con INDICATION: 87 years old; Male. Symptom/Location/Duration: Syncope. TECHNIQUE: Multiplanar MRI brain was performed without contrast administration. Comparison: MR angiogram of the head and neck dated 01/24/2023 at 3:[address] angiogram of the head and neck dated 01/23/2023 at 8:30 PM. FINDINGS: POSTOPERATIVE CHANGES: None. BRAIN PARENCHYMA: There is a focal area of restricted diffusion present in the lateral aspect of the right thalamus/posterior limb of the right internal capsule. This is hyperintense on the diffusion images, 42/series 10/02/2003 and hypointense on the ADC map, image 15/series 5005. This is also visible on the FLAIR images, 15 and 16/series 7001. The appearance is consistent with an area of acute/early subacute lacunar infarction. Multiple areas of chronic infarction are present within the left cerebellum. Old lacunar infarction is present in the body the caudate on the left. No hemosiderin deposition is seen. Patchy and confluent hyperintensity is seen in the periventricular and subcortical white matter in the FLAIR images without restricted diffusion consistent with small vessel ischemic change. VENTRICLES/EXTRA-AXIAL: Enlarged, consistent with atrophy. VESSELS: There is flow void seen in the distal right vertebral and basilar arteries as well as the distal internal carotid arteries. There is absence of flow void seen in the V4 segment of the left vertebral artery consistent with occlusion. Please see the detailed description in the CT angiogram report. SINUSES/MASTOIDS: Visualized sinuses are clear. Mastoid thickening bilaterally worse on the right. MSK: Bone marrow signal is within normal limits. OTHER: None. MR/MR head/brain wo con IMPRESSION: 1. Acute/early subacute lacunar infarction posterior limb right internal capsule/lateral aspect of the right thalamus. Restricted diffusion is present. 2. Multiple areas of chronic infarction in the left cerebellum. 3. Old lacunar infarction body the caudate on the left. 4. Small vessel ischemic changes. 5. Atrophy. 6. Occlusion of the left vertebral artery. Please see the dictation of the CT angiogram of the head and neck for evaluation the intracranial vessels. A note was placed in the stat folder for notification the provider at 1:34 AM on 01/25/2023. Electronically authenticated by: ALESSANDRO PAGAN Date: 01/25/2023 01:35
--- NOTE | 2023-01-24 17:05 | US_ITS ---
[place] [id number] Patient Name: RACHEL HOLLINGSWORTH MRN: [id number] date: 1935 Sex: M Assigned Patient Location: MS Current Patient Location: MS Accession/Order Number: [id number] Exam Date: 01/24/2023 19:15 Report Date: 01/25/2023 09:16 At the request of: BERTA CROSS Procedure: US carotid duplex BI EXAMINATION: US carotid duplex BI HISTORY: carotid artery stenosis COMPARISON: No relevant comparison available. TECHNIQUE: Duplex Doppler ultrasound analysis of carotid and vertebral arteries. . Bilateral carotid arterial duplex examination was performed using B-mode, color flow and spectral analysis. Carotid stenosis is reported according to validated velocity parameters, similar to NASCET criteria. FINDINGS: RIGHT CAROTID ARTERY Moderate atherosclerotic plaque. 61% stenosis proximal ICA Subclavian: PSV: 133.8 cm/s cm/s EDV: 0.0 cm/s cm/s CCA: Prox: PSV: 110.2 cm/s cm/s EDV: 9.7 cm/s cm/s Mid: PSV: 141.7 cm/s cm/s EDV: 11.6 cm/s cm/s Distal: PSV: 137.8 cm/s cm/s EDV: 15.6 cm/s cm/s BULB: PSV: 149.6 cm/s cm/s EDV: 17.5 cm/s cm/s ICA: Prox: PSV: 147.6 cm/s cm/s EDV: 33.3 cm/s cm/s Mid: PSV: 158.5 cm/s cm/s EDV: 30.4 cm/s cm/s Distal: PSV: 127.8 cm/s cm/s EDV: 91.6 cm/s cm/s ECA: PSV: 186.3 cm/s cm/s EDV: 0.0 cm/s cm/s VERTEBRAL: PSV: 47.9 cm/s cm/s EDV: 13.0 cm/s cm/s Antegrade ICA/CCA ratio: PSV: 1.1 EDV: 2.6 LEFT CAROTID ARTERY moderate atherosclerotic plaque. 53% stenosis proximal ICA Subclavian: PSV: 160.0 cm/s cm/s EDV: 0.0 cm/s CCA: Prox: PSV: 117.8 cm/s cm/s EDV: 14.4 cm/s Mid: PSV: 106.4 cm/s cm/s EDV: 19.2 cm/s Distal: PSV: 120.5 cm/s cm/s EDV: 17.1 cm/s BULB: PSV: 88.2 cm/s cm/s EDV: 13.9 cm/s ICA: Prox: PSV: 252.1 cm/s cm/s EDV: 15.2 cm/s Mid: PSV: 336.1 cm/s cm/s EDV: 0.0 cm/s Distal: PSV: 125.1 cm/s cm/s EDV: 0.0 cm/s ECA: PSV: 62.0 cm/s cm/s EDV: 14.1 cm/s VERTEBRAL: Occluded ICA/CCA ratio: PSV: 2.8 EDV: 0.0 Limited exam with patient motion US/US carotid duplex BI IMPRESSION: Flow velocities suggests 0-49% flow stenosis in the right internal carotid artery and 50-69% flow stenosis in the left internal carotid artery Measurements show 61% flow stenosis proximal right, 53% flow stenosis proximal left internal carotid artery Occlusion of left vertebral artery Spectral Doppler US Thresholds (Reference: Marcos EG, et al. Radiology 2000; 214:247-252) Stenosis (%) PSV (cm/sec) VICA/VCCA 0-49 <150 <2.5 50-69 150-225 2.5-4.0 >70 >225 >4.0 Electronically authenticated by: RICHARD OREILLY Date: 01/25/2023 09:16
[2023-01-24] MEDS: ATORVASTATIN CALCIUM 40 MG TABLET 80 MG PO (21:46)
[2023-01-24] MEDS: CARVEDILOL 25 MG TABLET 12.5 MG PO (21:46)
[2023-01-24] MEDS: APIXABAN 5 MG TABLET 2.5 MG PO (21:46)
[2023-01-24 22:16] LABS: Glucometer 280 mg/dL (74-106)
[2023-01-25] VITALS (8 sets, daily range): BP systolic 177; BP diastolic 89; PULSE 57–68; RESP 16; TEMP 36.6; O2SAT 93
[2023-01-25 04:51] LABS: Basophils Absolute Auto 0.1 10^3/uL (0.0-0.1); Basophils Percent Auto 1.3 % (0.2-2.0); Eosinophils Absolute Auto 0.8 10^3/uL (0.0-0.7); Hematocrit 35.8 % (42.0-54.0); Hemoglobin 11.7 g/dL (14.0-18.0); Immature Granulocytes Abs Auto 0.02 10^3/uL (0.00-0.03); Immature Granulocytes Pct Auto 0.3 % (0.0-0.5); Lymphocytes Percent Auto 28.9 % (20.5-60.0); Mean Corpuscular HGB Conc 32.7 g/dL (29.9-35.2); Mean Corpuscular Hemoglobin 29.5 pg (25.9-34.0); Mean Corpuscular Volume 90.4 fL (80.0-94.0); Monocytes Absolute Auto 0.5 10^3/uL (0.3-0.8); Monocytes Percent Auto 7.5 % (1.7-12.0); Neutrophils Absolute Auto 3.5 10^3/uL (1.4-6.5); Platelet Count 196 10^3/uL (150-450); Red Blood Count 3.96 10^6/uL (4.70-6.10); Red Cell Distribution Width 12.7 % (11.0-15.0); White Blood Count 6.8 10^3/uL (4.0-11.0)
[2023-01-25 05:05] LABS: Alanine Aminotransferase <6 U/L (16-63); Albumin Globulin Ratio 0.7; Albumin Level 2.6 g/dL (3.4-5.0); Alkaline Phosphatase 71 U/L (46-116); Anion Gap 9.9; Aspartate Amino Transferase 13 U/L (15-37); BUN Creatinine Ratio 12.6; Bilirubin Total 0.2 mg/dL (0.2-1.0); Calcium 8.4 mg/dL (8.5-10.1); Carbon Dioxide 25.9 mmol/L (21.0-32.0); Chloride 100 mmol/L (98-107); Estimated GFR (African America 43 (>=60); Estimated GFR (Non-African Ame 35 (>=60); Globulin 3.6 g/dL; Glucose 251 mg/dL (74-106); Potassium 3.8 mmol/L (3.5-5.1); Sodium 132 mmol/L (136-145); Total Protein 6.2 g/dL (6.4-8.2)
[2023-01-25] MEDS: ACETAMINOPHEN 325 MG TABLET PO (05:53)
[2023-01-25] MEDS: AMIODARONE HCL 200 MG TABLET PO (08:27)
[2023-01-25] MEDS: OMEPRAZOLE 40 MG CAPSULE.DR PO (08:28)
[2023-01-25] MEDS: BUMETANIDE 1 MG TABLET PO (08:28)
[2023-01-25] MEDS: APIXABAN 5 MG TABLET 2.5 MG PO (08:28)
[2023-01-25] MEDS: FLUOXETINE HCL 10 MG CAPSULE PO (08:28)
[2023-01-25] MEDS: CLOPIDOGREL BISULFATE 75 MG TABLET PO (08:28)
[2023-01-25] MEDS: CARVEDILOL 25 MG TABLET 12.5 MG PO (08:28)
[2023-01-25] MEDS: LEVOTHYROXINE SODIUM 75 MCG TABLET PO (08:29)
[2023-01-25] MEDS: TAMSULOSIN HCL 0.4 MG CAPSULE PO (08:29)
[2023-01-25] MEDS: INSULIN ASPART 300 UNIT/3 ML PEN SUBQ ×2 (08:44→11:43)
[2023-01-25 08:48] LABS: Glucometer 240 mg/dL (74-106)
--- NOTE | 2023-01-25 09:25 | PT.DAILY ---
Physical Therapy Daily Note PT Daily Note/Assess Start: 01/25/23 09:23 Freq: Status: Active Protocol: Document 01/25/23 09:20 DONTAE (Rec: 01/25/23 09:25 DONTAE [id number]) Visit Not Completed Visit Not Completed Visit Not Completed Due to: Other Other Reason Visit Not Completed N/A 2 attempts, POC is 3-5x a week so will follow up at later time. Physical Therapy Daily Note/Assessment Time In/Time Out Time In 09:20 Time Out 09:21 GG. Functional Abilities and Goals-Complete for Swing Bed Patients Only [id number]. Self-Care [id number]. Mobility
[2023-01-25 11:48] LABS: Glucometer 310 mg/dL (74-106)
--- NOTE | 2023-01-25 13:12 | PM.DS1 ---
DS: Providers Provider Date of admission: 01/23/23 22:45 Primary care physician: DEVEN NINO Consults: 01/24/23 08:46 Consult to Telestroke Routine Consulting Provider: Hospitalist Reason for consultation: TIA symptoms and syncope Has provider been notified: No 01/24/23 08:48 Occupational Therapy Eval and Treat Routine Reason for consultation: weakness Has provider been notified: No Physical Therapy Eval and Treat Routine Reason for consultation: weakness Has provider been notified: No DS: Diagnosis Discharge Diagnosis (1) Acute ischemic vertebrobasilar artery thalamic stroke: (2) Syncope: (3) Peripheral vascular disease: (4) Type 2 diabetes mellitus with hyperglycemia: (5) Hypertension: (6) Coronary artery disease: (7) Dyslipidemia: (8) Chronic heart failure with preserved ejection fraction (HFpEF): (9) Paroxysmal atrial fibrillation: (10) Stage 3b chronic kidney disease: (11) Anemia in chronic kidney disease (CKD): DS: Summary Hospital Course Hospital Course: Reason for admission: See ER note and H&P for details. 87 y/o male with history of prior CVA, PVD, CAD, and CHF to ER after syncopal episode. Patient is poor historian and doesn't remember the event. Witnessed syncope by family and seemed confused after. No focal deficits and normal speech. Patient does not follow up with PCP or specialists and has not been taking his medication regularly. To ER and CT head negative. CTA head and neck showed known occlusion of left vertebral artery and carotid stenosis. Contacted tele-stroke and admitted for work up. Hospital course: Resumed plavix. Cardiology notes shows history of afib and resumed Eliquis. Lipitor increased. Echo performed and normal. Carotid US shows narrowing of carotids. MRI performed and showed acute to subacute infarct in right thalamus. Patient felt well and back to baseline. Evaluated by PT and recommend home health. Patient evaluated by tele-stroke and felt no need for emergent transfer. Discharged home in stable condition. Need to take medication daily as directed. Need to control DM and BP. F/u with neurology and vascular surgery in 1-2 weeks. Need to establish with new PCP. Time Spent with Patient Time attestation: Total time spent providing and/or coordinating discharge services: Quality: Stroke Onset of Symptoms Date: 01/23/23 Symptom Onset Unknown: Yes Exam Constitutional Vital Signs, click to edit/add: Last Vital Signs Temp 98 F 01/25/23 06:00 Pulse 66 01/25/23 12:11 Resp 16 01/25/23 06:00 BP 177/89 H 01/25/23 06:00 Pulse Ox 93 L 01/25/23 06:00 O2 Del Method Room Air 01/25/23 06:00 Documenting provider has reviewed patient's vital signs: yes Common normals: no apparent distress, oriented x3 and alert HENMT Common normals: normocephalic Eye Common normals: PERRL and EOMs intact bilaterally Respiratory Common normals: normal respiratory effort and clear to auscultation bilaterally Cardio Common normals: regular rate, regular rhythm, no gallops, no murmurs and no rub GI Common normals: Normal to inspection, nondistended, normoactive bowel sounds present and non-tender Extremity Common normals: no pedal edema Neuro Common normals: CN's II-XII intact bilaterally, moves all extremities, no focal motor deficits and no sensory deficits noted DS: Data Data Completed and Pending Labs on day of discharge: Labs from last 24 hours 01/25/23 01/25/23 01/25/23 11:40 08:37 04:37 WBC 6.8 RBC 3.96 L Hgb 11.7 L Hct 35.8 L MCV 90.4 MCH 29.5 MCHC 32.7 RDW 12.7 Plt Count 196 MPV 10.0 Neut % (Auto) 51.0 Lymph % (Auto) 28.9 [place] % (Auto) 7.5 Eos % (Auto) 11.0 H Baso % (Auto) 1.3 Neut # (Auto) 3.5 Lymph # (Auto) 2.0 [place] # (Auto) 0.5 Eos # (Auto) 0.8 H Baso # (Auto) 0.1 Abs Immat Gran (auto) 0.02 Imm/Tot Granulo (auto) 0.3 Sodium 132 L Potassium 3.8 Chloride 100 Carbon Dioxide 25.9 Anion Gap 9.9 BUN 23.0 H Creatinine 1.83 H Est GFR ( Amer) 43 L Est GFR (Non-Af Amer) 35 L BUN/Creatinine Ratio 12.6 Glucose 251 H Calcium 8.4 L Total Bilirubin 0.2 AST 13 L ALT <6 L Alkaline Phosphatase 71 Total Protein 6.2 L Albumin 2.6 L Globulin 3.6 Albumin/Globulin Ratio 0.7 POC Glucose 310 H 240 H 01/24/23 01/24/23 22:14 16:48 WBC RBC Hgb Hct MCV MCH MCHC RDW Plt Count MPV Neut % (Auto) Lymph % (Auto) [place] % (Auto) Eos % (Auto) Baso % (Auto) Neut # (Auto) Lymph # (Auto) [place] # (Auto) Eos # (Auto) Baso # (Auto) Abs Immat Gran (auto) Imm/Tot Granulo (auto) Sodium Potassium Chloride Carbon Dioxide Anion Gap BUN Creatinine Est GFR ( Amer) Est GFR (Non-Af Amer) BUN/Creatinine Ratio Glucose Calcium Total Bilirubin AST ALT Alkaline Phosphatase Total Protein Albumin Globulin Albumin/Globulin Ratio POC Glucose 280 H 373 H Discharge Plan Discharge Condition: Fair Discharge Medications: New atorvastatin 80 mg tablet 80 mg PO QPM Qty: 30 0RF Continued amiodarone [Pacerone] 200 mg tablet 200 mg PO DAILY bumetanide 1 mg tablet 1 mg PO DAILY carvedilol [Coreg] 25 mg tablet 25 mg PO BID Rx Instructions: must administer with a meal/food clopidogrel [Plavix] 75 mg tablet 75 mg PO DAILY Eliquis 2.5 mg tablet 2.5 mg PO BID fluoxetine 10 mg capsule 10 mg PO DAILY folic acid 1 mg tablet 1 mg PO DAILY levothyroxine 75 mcg capsule 75 mcg PO DAILY metformin 500 mg tablet 500 mg PO BID nitroglycerin 0.4 mg tablet, sublingual 0.4 mg sublingual Q5M PRN (Reason: chest pain) Rx Instructions: do not exceed 3 doses per episode pantoprazole [Protonix] 40 mg tablet,delayed release (DR/EC) 40 mg PO QAM potassium chloride 10 mEq tablet extended release 10 meq PO DAILY tamsulosin [Flomax] 0.4 mg capsule 0.4 mg PO DAILY valsartan 80 mg tablet 80 mg PO DAILY ergocalciferol (vitamin D2) 1,250 mcg (50,000 unit) capsule 50,000 unit PO DAILY vitamin B complex Capsule 1 cap PO DAILY Discontinued atorvastatin [Lipitor] 80 mg tablet 80 mg PO QPM Activity: resume usual activities as tolerated Diet: advance to your usual diet Forms: Portal Instructions Referrals: DEVEN NINO [Primary Care Provider] - 1 week Follow Up Appointments: Dr. Sanches's ( social worker clinical) office will contact Mr. Quijanoh when an appt. opens up for a follow-up. There is a waitlist into Feb. Office #: [phone]
--- NOTE | 2023-01-28 10:18 | CM.DCFOLLOWU ---
Person spoke with: patient How are you feeling? Not happy because I cannot do things I used to be able to do, like driving. How is your pain? None at this time Did you understand your discharge instructions? yes and my grand-daughter helps me, her and her family live with me. Do you have any questions about your discharge instructions? not at this time Were you given any prescriptions at discharge? yes I think my grand-daughter picked them up Were you able to get your prescriptions filled? see above Do you understand how to take your medications as ordered? yes Do you have any questions about your follow up appointment and do you plan to keep your follow up appointment? Grand-daughter is not home at this time. Highly encouraged patient when grand-daughter gets home to have her review his discharge instructions and ensure all of his follow up appointments have been or get scheduled. Pt. needs a follow up with PCP. Pt. stated he fired his PCP a while back. Reminded the patient how important these follow up appointments are with his health history and patient voiced understanding at this time and said he would talk with his grand-daugher who is not home at this time he stated she is at school. Is there anything else that you would like to discuss? none Questions/Comments/Concerns/Other: none other than the above.
--- NOTE | 2023-01-28 14:55 | SWNOTE1 ---
ZITA did follow up and call Dr. Avila's office today. Pt was in the system, but he has not been to an appointment in quite a long time. Nurse voiced he is not current with them at this time. SW checked pt's discharge instructions and a list of accepting PCP'S was given to pt at discharge.
== END 2023-01-25 15:20 | disposition home or self-care (01) ==
LOC: ER 22:01 → MS 22:55
PROVIDERS: Internal Medicine; Admitting Provider Family Medicine; Emergency Provider Emergency Medicine; PCP Family Medicine; Visit Provider Family Medicine
DX: I63.212 Cerebral infarction due to unspecified occlusion or stenosis of left vertebral artery (principal); R55 Syncope and collapse; I73.9 Peripheral vascular disease, unspecified; E11.65 Type 2 diabetes mellitus with hyperglycemia; I25.10 Atherosclerotic heart disease of native coronary artery without angina pectoris; E78.5 Hyperlipidemia, unspecified; I13.0 Hypertensive heart and chronic kidney disease with heart failure and stage 1 through stage 4 chronic kidney disease, or unspecified chronic kidney disease; I48.0 Paroxysmal atrial fibrillation; I50.32 Chronic diastolic (congestive) heart failure; N18.32 Chronic kidney disease, stage 3b; E11.22 Type 2 diabetes mellitus with diabetic chronic kidney disease; N17.9 Acute kidney failure, unspecified; D63.1 Anemia in chronic kidney disease; Z86.73 Personal history of transient ischemic attack (TIA), and cerebral infarction without residual deficits; Z79.01 Long term (current) use of anticoagulants; Z79.02 Long term (current) use of antithrombotics/antiplatelets; Z79.899 Other long term (current) drug therapy; Z79.84 Long term (current) use of oral hypoglycemic drugs; Z87.891 Personal history of nicotine dependence
CPT/HCPCS: 36415; 70450; 70496; 70498; 70544; 70547; 70551; 80048; 80053; 80061; 81001; 82948; 83735; 83880; 84134; 84484; 85025; 93005; 93306; 93880; 96360; 96361; 97162; 97165; 99285; G0378; Q3014; Q9966

== ENCOUNTER 2023-08-04 15:50 | Outpatient (OUT) | payer MEDICARE, SELFPAY ==
[2023-08-04 16:47] LABS: Thyroid Stimulating Hormone 15.163 uIU/mL (0.358-3.740)
== END 2023-08-04 15:51 | disposition home or self-care (01) ==
LOC: LAB 15:50
PROVIDERS: PCP Family Medicine; Visit Provider Internal Medicine Cardiovascular Disease
DX: E03.9 Hypothyroidism, unspecified (principal)
CPT/HCPCS: 36415; 84443

== ENCOUNTER 2023-10-20 00:47 | Emergency (ER) | payer MEDICARE, SELFPAY ==
[2023-10-20] VITALS (51 sets, daily range): BP systolic 96–134; BP diastolic 42–75; PULSE 68–95; TEMP 36.5–37; O2SAT 85–100; BMI 30.4
--- NOTE | 2023-10-20 00:51 | ECG_ITS ---
[facility] Test Date: 2023-10-20 Pat Name: RACHEL HOLLINGSWORTH Department: Room: - Gender: Male Estimating Manager: : 1935 Requested By: [id number] Order Number: [id number] Reading MD: KATHE DAVE Measurements Intervals [place] Rate: 82 P: 53 WV: 224 QRS: -45 QRSD: 146 T: 98 QT: 424 QTc: 463 Interpretive Statements 1100 Sinus rhythm 2231 First degree AV block 2450 Right bundle branch block 2630 Left anterior fascicular block [address] depression, consistent with subendocardial injury 9150 abnormal ECG Compared to ECG 01/23/2023 19:19:24 First degree AV block now present Left anterior fascicular block now present ST (T wave) deviation now present Left-axis deviation no longer present Electronically Signed On 10-21-2023 8:50:29 EDT by KATHE DAVE
--- OUTSIDE RECORDS SUMMARY | 2023-10-20 00:57 | XMS_ITS | CCD ---
Author Organization [facility] Care Team Providers Care Manager Equity Name Role Phone FELICE SANCHES Attending Unavailable NIKHIL AVILA [facility] Care Unavailable FELICE SANCHES Attending Unavailable NIKHIL AVILA [facility] Unavailable Nikhil Avila Unavailable Unavailable Unavailable Nikhil Avila [facility] Unavailab le Verónica, Dr. Felice Alvarado Referring Anita vailable Verónica, Dr. Felice Alvarado Attending Anita vailable Verónica, Dr. Felice Alvarado Attending Anita vailable Nikhil Avila [facility] Care Unavailab le Sanches, Dr. Felice Alvarado Referring Anita vailable BROCK SAMUELS Consulting Unavailable BROCK SAMUELS Attending Unavailable BROCK SAMUELS Admitting Unavailable TRUNG, DR NIKHIL Vill[facility]al [facility] Unavailable ABELARDO, DR JIAN Shields Consulting Unavailable ABELARDO, DR JIAN Shields Attending Unavailable ABELARDO, DR JIAN Shields Admitting Unavailable TRUNG, DR NIKHIL Vill[facility]al Primary [facility] Unavailable KARISHMA, DR KERI Villareal Consulting UnavailMACI Toussaint Consulting Unavailable ALEN MARAVILLA Consulting Unavailable ADA NOYOLA Consulting Unavailable RICHARD PAGAN Consulting Unavailable PAT REYNOSO Consulting Unavailable ROD JUSTIN Admitting UnavailROD Collins Attending Unavailmarv AVILA, DR NIKHIL Villareal Primary Care Unavailable ROD JUSTIN Consulting Unavailabl e DMITRIY STEELE Admitting Unavailable DMITRIY STEELE Attending Unavailable TRUNG, DR NIKHIL Villareal Primary Care Unavailable JOANN, DR STEVO Hollingsworth Consulting Unavailable IVETTE, DMITRIY Consulting Unavailable ROD JUSTIN Admitting Unavailabl ROD Alejo Attending Unavailabl e FURLONG, DR NIKHIL Villareal Primary Care Unavailable FURLONG, DR NIKHIL Villareal Primary Care Unavailable [facility], ANN Barbour Attending Unavailable ANN ALMODOVAR Admitting Unavailable HIGHLMANDO, ANN Barbour Admitting Unavailable HIGHLMANDO, ANN Barbour Attending Unavailable FURLONG, DR NIKHIL Villareal Primary Care [facility] Admitting [facility] Barbour Attending Unavailable FURLONG, DR NIKHIL Villareal Primary Care Unavailable CLOUGHERTY, VELASCO O Admitting Unavailabl e CLOUGHERTY, ROD O Attending Unavailabl e FURLONG, DR NIKHIL Villareal Primary Care Unavailable CLOUGHERTY, VELASCO O Admitting Unavailabl e CLOUGHERTY, VELASCO O Attending Unavailabl e FURLONG, DR NIKHIL Villareal Primary Care Unavailable CLOUGHERTY, VELASCO O Admitting Unavailabl e CLOUGHERTY, VELASCO O Attending Unavailabl e FURLONG, DR NIKHIL Villareal Primary Care Unavailable FURLONG, DR NIKHIL Villareal Primary Care [facility] Barbour Attending Unavailable ANN ALMODOVAR Admitting Unavailable FURLONG, DR NIKHIL Villareal Primary Care Unavailable [facility], ANN Barbour Attending Unavailable HIGHLANDER, ANN Barbour Admitting Unavailable CLOUGHERTY, VELASCO O Admitting Unavailabl e CLOUGHERTY, VELASCO O Attending Unavailabl e FURLONG, DR NIKHIL Villareal Primary Care Unavailable CLOUGHERTY, VELASCO O Admitting Unavailabl e CLOUGHERTY, VELASCO O Attending Unavailabl e FURLONG, DR NIKHIL Villareal Primary Care Unavailable FURLONG, DR NIKHIL Villareal Primary Care Un[facility] Barbour Attending Unavailable ANN ALMODOVAR Admitting Unavailable JOANN, DR STEVO Hollingsworth Consulting Unavailable ANABEL, DR RIDLEY Attending Unavailable ANABEL, DR RIDLEY Admitting Unavailable FURLONG, DR NIKHIL Villareal Primary Care Unavailable MACI LONDON Consulting Unavailable ANABEL, DR RIDLEY Consulting Unavailable LEAH, DR SHOLA Tolbert Attending Unavailable LEAH, DR SHOLA Tolbert Admitting Unavailable SURAJ, DR SANDOVAL Consulting Unavailable SHARONLONG, DR NIKHIL Villareal Primary Care Unavailable GARCIAEBER, DR STEVO Hollingsworth Consulting Unavailable LEAH, DR SHOLA Tolbert Consulting Unavailable MIKALA ALBA Consulting Unavailable ALYSON NIETO Consulting Unavailable МАРИНА DAVIS Consulting Unavailable TRUNG, DR NIKHIL Villareal Primary Care Unavailable МАРИНА DAVIS Attending Unavailable МАРИНА DAVIS Admitting Unavailable CLOUGHERTY, VELASCO O Admitting Unavailabl e CLOUGHERTY, VELASCO O Attending Unavailmarv AVILA, DR NIKHIL Villareal Primary Care Unavailable SANCHES, DR FELICE De La Cruz Consulting Unavailable TRUNG, DR NIKHIL Villareal Primary Care Unavailable SANCHES, DR FELICE De La Cruz Attending Unavailable SANCHES, DR FELICE De La Cruz Admitting Unavailable NO FAMILY, PHYSICIAN Primary Care Unavailable Felice Sanches Attending Unavailable Felice Sanches Admitting Unavailable FELICE SANCHES Attending Unavailable NIKHIL AVILA Primary Care Unavailab le Allergies Allergy Classification Reported Allergen(s) Allergy Type Date of Onset Reaction(s) Facility (9 sources) Codeine; Translations: [codeine] Drug Allergy 3 [facility] 3 Repository (2 sources) Codeine Drug Allergy 4 [facility] Repository (1 source) Acetaminophen Drug Allergy 2 [facility] Repository (1 source) Codeine Drug Allergy 2 [facility] Repository Medications Completed/Discontinued Medications Medication Drug Class(es) Dates Sig (Normalized) Sig (Original) amiodarone hydrochloride 200 mg oral tablet (8 sources) Antiarrhythmic Start: 12-28-2020 take 1 tablet by mouth once daily Amiodarone HCl - 200 MG Oral Tablet TAKE 1 TABLET DAILY. Quantity: 0 Refills: 0 Ordered: 28-Dec-2020 DO Start : 28-Dec-2020 Active amLODIPine 5 mg oral tablet (1 source) Dihydropyridine Calcium Channel Lizeth Start: 06-10-2020 amLODIPine Besylate 5 MG Oral Tablet Quantity: 60 Refills: 0 Ordered: 26-Jul-2020 DO Start : 10-Jun-2020 Complete amoxicillin 875 mg / clavulanate 125 mg oral tablet (1 source) Penicillin-class Antibacterial Start: 12-05-2020 Amoxicillin-Pot Clavulanate 875-125 MG Oral Tablet Quantity: 14 Refills: 0 Ordered: 09-Dec-2020 DO Start : 05-Dec-2020 Complete apixaban 2.5 mg oral tablet (8 sources) Factor Xa Inhibitor Start: 12-18-2020 take 1 tablet by mouth twice daily Eliquis 2.5 MG Oral Tablet 1 tab bid Quantity: 0 Refills: 0 Ordered: 12-Mar-2021 DO Start : 18-Dec-2020 Active atorvastatin 80 mg oral tablet (7 sources) HMG-CoA Reductase Inhibitor Start: 08-15-2020 take 1 tablet by mouth at bedtime Atorvastatin Calcium 80 MG Oral Tablet TAKE ONE TABLET BY MOUTH AT BEDTIME Quantity: 90 Refills: 3 Ordered: 29-Aug-2021 Felice Sanches MD Start : 15-Aug-2020 Active bumetanide 1 mg oral tablet (8 sources) Loop Diuretic Start: 09-18-2021 take 1 tablet by mouth twice daily Bumetanide 1 MG Oral Tablet TAKE 1 TABLET TWICE DAILY. Quantity: 180 Refills: 3 Ordered: 18-Sep-2021 Felice Sanches MD Start : 18-Sep-2021 Active dose increased Start: 01-15-2021 take 1 tablet by frida th once daily Bumetanide 1 MG Oral Tablet TAKE 1 TABLET DAILY. Quantity: 0 Refills: 0 Ordered: 15-Jan-2021 DO Start : 15-Jan-2021 Active Start: 01-15-2021 take 1 tablet by frida th once daily Bumetanide 0.5 MG Oral Tablet TAKE 1 TABLET DAILY. Quantity: 0 Refills: 0 Ordered: 15-Jan-2021 DO Start : 15-Jan-2021 Active canagliflozin 100 mg oral tablet (8 sources) Sodium-Glucose Cotransporter 2 Inhibitor Start: 09-11-2020 take 1 tablet by mouth once daily Invokana 100 MG Oral Tablet 1 daily Quantity: 0 Refills: 0 Ordered: 05-Feb-2021 DO Start : 11-Sep-2020 Active carvedilol 25 mg oral tablet (8 sources) alpha-Adrenergic Lizeth, beta-Adrenergic Lizeth Start: 01-15-2021 take 1 tablet by mouth twice daily Carvedilol 25 MG Oral Tablet TAKE 1 TABLET TWICE DAILY. Quantity: 0 Refills: 0 Ordered: 15-Jan-2021 DO Start : 15-Jan-2021 Active clopidogrel 75 mg oral tablet (8 sources) P2Y12 Platelet Inhibitor Start: 05-29-2020 take 1 tablet by mouth once daily Clopidogrel Bisulfate 75 MG Oral Tablet TAKE 1 TABLET DAILY. Quantity: 0 Refills: 0 Ordered: 29-May-2020 DO Start : 29-May-2020 Active Start: 05-29-2020 Clopidogrel Bi sulfate 75 MG Oral Tablet Quantity: 90 Refills: 0 Ordered: 29-May-2020 DO Start : 29-May-2020 Active digoxin 0.125 mg oral tablet (1 source) Cardiac Glycoside Start: 12-05-2020 Digoxin 125 MCG Oral Tablet Quantity: 30 Refills: 0 Ordered: 09-Dec-2020 DO Start : 05-Dec-2020 Complete ergocalciferol 1.25 mg oral capsule (8 sources) Provitamin D2 Compound Vitamin D (Ergocalciferol) 1.25 MG (08697 UT) Oral Capsule 1 daily Quantity: 0 Refills: 0 Ordered: 20-Mar-2021 DO Active ezetimibe 10 mg oral tablet (1 source) Dietary Cholesterol Absorption Inhibitor Start: 06-10-2020 Ezetimibe 10 MG Oral Tablet Quantity: 30 Refills: 0 Ordered: 26-Jul-2020 DO Start : 10-Jun-2020 Complete FLUoxetine 10 mg oral capsule (8 sources) Serotonin Reuptake Inhibitor Start: 08-15-2020 take 1 capsule by mouth once daily FLUoxetine HCl - 10 MG Oral Capsule TAKE 1 CAPSULES DAILY. Quantity: 0 Refills: 0 Ordered: 15-Aug-2020 DO Start : 15-Aug-2020 Active folic acid 1 mg oral tablet (8 sources) take 1 tablet by mouth once daily Folic Acid 1 MG Oral Tablet TAKE 1 TABLET DAILY. Quantity: 0 Refills: 0 Ordered: 20-Mar-2021 DO Active furosemide 20 mg oral tablet (1 source) Loop Diuretic Start: 08-01-2020 Furosemide 20 MG Oral Tablet Quantity: 30 Refills: 0 Ordered: 01-Aug-2020 DO Start : 01-Aug-2020 Complete glipiZIDE er 10 mg 24 hr extended release oral tablet (1 source) Sulfonylurea Start: 05-29-2020 take 1 tablet by mouth every twenty-four hours glipiZIDE ER 10 MG Oral Tablet Extended Release 24 Hour Quantity: 180 Refills: 0 Ordered: 29-May-2020 DO Start : 29-May-2020 Complete hydrALAZINE hydrochloride 50 mg oral tablet (1 source) Arteriolar Vasodilator Start: 06-10-2020 hydrALAZINE HCl - 50 MG Oral Tablet Quantity: 60 Refills: 0 Ordered: 26-Jul-2020 DO Start : 10-Jun-2020 Complete hydroCHLOROthiazide 12.5 mg / lisinopril 20 mg oral tablet (1 source) Thiazide Diuretic, Angiotensin Converting Enzyme Inhibitor Start: 05-29-2020 Lisinopril-hydroC HLOROthiazide 20-12.5 MG Oral Tablet Quantity: 90 Refills: 0 Ordered: 29-May-2020 DO Start : 29-May-2020 Complete 3 ml insulin lispro 25 unt/ml / insulin lispro protamine, human 75 unt/ml pen injector (9 sources) Insulin Analog Start: 02-21-2021 HumaLOG Mix 75/25 KwikPen (75-25) 100 UNIT/ML Subcutaneous Suspension Pen-injector Quantity: 45 Refills: 0 Ordered: 21-Feb-2021 DO Start : 21-Feb-2021 Active Start: 05-29-2020 HumaLOG Mix 50 /50 (50-50) 100 UNIT/ML Subcutaneous Suspension Quantity: 30 Refills: 0 Ordered: 24-Aug-2020 DO Start : 29-May-2020 Complete levothyroxine sodium 0.05 mg oral tablet (9 sources) l-Thyroxine Start: 02-22-2021 take 1 tablet by mouth once daily Levothyroxine Sodium 50 MCG Oral Tablet TAKE 1 TABLET DAILY. Quantity: 0 Refills: 0 Ordered: 22-Feb-2021 DO Start : 22-Feb-2021 Active Start: 08-17-2020 Levothyroxine Sodium 25 MCG Oral Tablet Quantity: 90 Refills: 0 Ordered: 17-Aug-2020 DO Start : 17-Aug-2020 Complete take 1 tablet by frida th once daily Levothyroxine Sodium 75 MCG Oral Tablet TAKE 1 TABLET DAILY DIRECTED. Quantity: 90 Refills: 3 Ordered: 02-Jul-2021 DO Active lisinopril 20 mg oral tablet (1 source) Angiotensin Converting Enzyme Inhibitor Start: 06-10-2020 Lisinopril 20 MG Oral Tablet Quantity: 30 Refills: 0 Ordered: 26-Jul-2020 DO Start : 10-Jun-2020 Complete metFORMIN hydrochloride 500 mg oral tablet (8 sources) Biguanide Start: 03-15-2020 take 1 tablet by mouth every twelve hours at mealtime metFORMIN HCl - 500 MG Oral Tablet TAKE 1 TABLET EVERY 12 HOURS WITH FOOD. Quantity: 0 Refills: 0 Ordered: 25-Dec-2020 DO Start : 15-Mar-2020 Active nitroglycerin 0.4 mg sublingual tablet (8 sources) Nitrate Vasodilator Start: 12-11-2020 Nitroglycerin 0.4 MG Sublingual Tablet Sublingual PLACE 1 TABLET UNDER THE TONGUE EVERY 5 MINUTES FOR UP TO 3 DOSES NEEDED FOR CHEST PAIN.CALL 911 IF PAIN PERSISTS. Quantity: 0 Refills: 0 Ordered: 11-Dec-2020 DO Start : 11-Dec-2020 Active pantoprazole 40 mg delayed release oral tablet (8 sources) Proton Pump Inhibitor Start: 12-11-2020 take 1 tablet by mouth once daily Pantoprazole Sodium 40 MG Oral Tablet Delayed Release TAKE 1 TABLET DAILY. Quantity: 0 Refills: 0 Ordered: 12-Mar-2021 DO Start : 11-Dec-2020 Active potassium chloride 10 meq extended release oral tablet (8 sources) Start: 01-15-2021 take 1 tablet by mouth once daily Potassium Chloride ER 10 MEQ Oral Tablet Extended Release TAKE 1 TABLET DAILY. Quantity: 0 Refills: 0 Ordered: 15-Jan-2021 DO Start : 15-Jan-2021 Active tamsulosin hydrochloride 0.4 mg oral capsule (8 sources) alpha-Adrenergic Lizeth Start: 12-11-2020 take 1 capsule by mouth once daily Tamsulosin HCl - 0.4 MG Oral Capsule 1 cap daily Quantity: 0 Refills: 0 Ordered: 12-Mar-2021 DO Start : 11-Dec-2020 Active valsartan 80 mg oral tablet (8 sources) Angiotensin 2 Receptor Lizeth Start: 01-24-2021 take 1 tablet by mouth once daily Valsartan 80 MG Oral Tablet TAKE 1 TABLET DAILY. Quantity: 0 Refills: 0 Ordered: 24-Jan-2021 DO Start : 24-Jan-2021 Active Vitamin B Complex CAPS (8 sources) Vitamin B Comple x CAPS 1 daily Quantity: 0 Refills: 0 Ordered: 20-Mar-2021 DO Active Problems Active Problems Problem Classification Problem Date Documented Date Episodic/Chronic Acute cerebrovascular disease (8 sources) Cerebrovascular accident; Translations: [Cerebral artery occlusion, unspecified with cerebral infarction] Chronic Cardiac dysrhythmias (19 sources) Atrial fibrillation; Translations: [Atrial fibrillation] Onset: 05-20-2023 Chronic Chronic kidney disease (10 sources) Chronic kidney disease, unspecified; Translations: [Chronic kidney disease stage 3] Onset: 08-13-2018 Chronic Chronic kidney disease (1 source) Chronic kidney disease Onset: 08-13-2018 Chronic ulcer of skin (7 sources) 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 breakdown of skin; Translations: [Non-pressure chronic ulcer of other part of right lower leg limited to breakdown of skin] Onset: 07-13-2021 Chronic Congestive heart failure; nonhypertensive (2 sources) Heart failure, unspecified; Translations: [Chronic systolic (congestive) heart failure] Onset: 11-22-2021 Chronic Coronary atherosclerosis and other heart disease (19 sources) Atherosclerotic heart disease of [place] coronary artery without angina pectoris; Translations: [Coronary arteriosclerosis] Onset: 09-23-2017 Chronic Coronary atherosclerosis and other heart disease (16 sources) Coronary angioplasty status; 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] Onset: 08-13-2018 Episodic Comment on above: Radial to OM also PT CA of LM/OM; Deficiency and other anemia (1 source) Anemia, unspecified; Translations: [ANEMIA UNSPECIFIED] Onset: 05-21-2022 Episodic Diabetes mellitus with complications (11 sources) Type 2 diabetes mellitus with diabetic chronic kidney disease; Translations: [Type 2 diabetes mellitus with diabetic polyneuropathy] Onset: 11-02-2021 Chronic Diabetes mellitus without complication (9 sources) Type 2 diabetes mellitus without complications; Translations: [Diabetes mellitus] Onset: 08-13-2018 Chronic Disorders of lipid metabolism (14 sources) Hyperlipidemia, unspecified; Translations: [Hyperlipidemia] Onset: 08-13-2018 Chronic Essential hypertension (15 sources) Essential (primary) hypertension; Translations: [Benign essential hypertension] Onset: 09-23-2017 Chronic Fluid and electrolyte disorders (1 source) Dehydration; Translations: [DEHYDRATION] Onset: 05-21-2022 Episodic Hyperplasia of prostate (1 source) Benign prostatic hyperplasia without lower urinary tract symptoms; Translations: [BENIGN PROSTATIC HYPRPLASIA WO LUTS] Onset: 05-21-2022 Chronic Hypertension with complications and secondary hypertension (3 sources) Hypertensive heart and chronic kidney disease with heart failure and stage 1 through stage 4 chronic kidney disease, or unspecified chronic kidney disease; Translations: [Hypertensive heart disease with heart failure] Onset: 03-29-2022 Chronic Late effects of cerebrovascular disease (1 source) Other sequelae following unspecified cerebrovascular disease; Translations: [OTH SEQUELAE UNS CEREBROVASCULAR DZ] Onset: 03-29-2022 Chronic Malaise and fatigue (1 source) Weakness; Translations: [WEAKNESS] Onset: 05-21-2022 Episodic Mycoses (4 sources) Tinea pedis; Translations: [TINEA PEDIS] Onset: 03-19-2022 Episodic Nutritional deficiencies (1 source) Moderate protein-calorie malnutrition; Translations: [MODERATE PROTEIN-CALORIE MLNUTRIT] Onset: 05-21-2022 Chronic Occlusion or stenosis of precerebral arteries (11 sources) Occlusion and stenosis of unspecified carotid artery; Translations: [Occlusion and stenosis of right carotid artery] Onset: 09-23-2017 Chronic Other aftercare (8 sources) Drug therapy finding; Translations: [Long-term (current) use of other medications] Episodic Other aftercare (3 sources) 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; Translations: [OTH GLASS CYLINDER FLANGER CURRENT DRUG THERAPY] Onset: 05-21-2022 Episodic Other aftercare (3 sources) 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; Translations: [SENIOR LIVING CURRENT USE OF INSULIN] Onset: 05-21-2022 Episodic Other aftercare (1 source) watermelon inspector (current) use of oral hypoglycemic drugs; Translations: [SENIOR LIVING USE 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 DX] Onset: 05-21-2022 Episodic Other circulatory disease (1 source) Other specified symptoms and signs involving the circulatory and respiratory systems Onset: 08-13-2018 Episodic Other circulatory disease (1 source) Personal history of transient ischemic attack (TIA), and cerebral infarction without residual deficits; Translations: [PERS HX TIA AND CI NO RESID DEFICIT] Onset: 05-21-2022 Episodic Other connective tissue disease (1 source) Presence of left artificial hip joint; Translations: [PRESENCE LEFT ARTIFICIAL HIP JOINT] Onset: 05-21-2022 Chronic Other connective tissue disease (1 source) Presence of unspecified artificial hip joint; Translations: [PRESENCE UNS ARTIFICIAL HIP JOINT] Onset: 11-29-2021 Chronic Other diseases of veins and lymphatics (5 sources) 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; Translations: [CHRN GRAY HTN ULCR INFLAM RT LW EXT] Onset: 07-03-2021 Chronic Other diseases of veins and lymphatics (5 sources) 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; Translations: [CHRON VENOUS HTN W/ULCER RT LW EXT] Onset: 07-10-2021 Chronic Other diseases of veins and lymphatics (1 source) 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; Translations: [CHRON VENOUS HTN W/ULCER BRITTANY LW EXT] Onset: 07-13-2021 Chronic Other injuries and conditions due to external causes (1 source) History of falling; Translations: [HISTORY OF FALLING] Onset: 05-21-2022 Episodic Other non-traumatic joint disorders (1 source) Other specified arthritis, unspecified site; Translations: [OTHER SPECIFIED ARTHRITIS UNS SITE] Onset: 10-17-2021 Chronic Other nutritional; endocrine; and metabolic disorders (1 source) Obesity, unspecified Onset: 09-23-2017 Chronic Other nutritional; endocrine; and metabolic disorders (8 sources) Obesity; Translations: [Obesity, unspecified] Chronic Other nutritional; endocrine; and metabolic disorders (1 source) Body mass index (BMI) 30.0-30.9, adult; Translations: [BODY MASS INDEX BMI 30.0-30.9 ADULT] Onset: 05-21-2022 Chronic Other nutritional; endocrine; and metabolic disorders (1 source) Morbid (severe) obesity due to excess calories; Translations: [MORBID SEVERE OBES D/T EXCESS ALLA] Onset: 12-25-2021 Chronic Other nutritional; endocrine; and metabolic disorders (2 sources) Body mass index (BMI) 31.0-31.9, adult; Translations: [Body mass index (BMI) 31.0-31.9, adult] Onset: 09-03-2023 Chronic Other nutritional; endocrine; and metabolic disorders (8 sources) Hyperuricemia; Translations: [Other abnormal blood chemistry] Episodic Other skin disorders (1 source) Disorder of the skin and subcutaneous tissue, unspecified; Translations: [DISORDER SKIN AND SUBQ TISSUE UNS] Onset: 03-29-2022 Episodic Peripheral and visceral atherosclerosis (5 sources) Peripheral vascular disease, unspecified; Translations: [PERIPHERAL VASCULAR DISEASE UNS] Onset: 08-06-2021 Chronic Residual codes; unclassified (3 sources) Edema of lower extremity; Translations: [Edema] Episodic Residual codes; unclassified (1 source) Acquired absence of other specified parts of digestive tract; Translations: [ACQ ABSENCE OTH PART DIGESTV TRACT] Onset: 05-21-2022 Episodic Residual codes; unclassified (1 source) Localized edema; Translations: [LOCALIZED EDEMA] Onset: 03-29-2022 Episodic Screening and history of mental health and substance abuse codes (12 sources) Personal history of nicotine dependence; Translations: [Ex-smoker] Onset: 08-13-2018 Episodic Comment on above: quit 1965; Skin and subcutaneous tissue infections (8 sources) Cellulitis of right lower limb; Translations: [Cellulitis of left lower limb] Onset: 10-11-2021 Episodic Thyroid disorders (1 source) Hypothyroidism, unspecified; Translations: [HYPOTHYROIDISM UNSPECIFIED] Onset: 03-29-2022 Chronic Unclassified (1 source) Athscl heart disease of [place] cor art w unsp ang pctrs Onset: 08-13-2018 Unclassified (1 source) CHRN KIDNEY DISEASE STG 3 UNSP; Translations: [CHRN KIDNEY DISEASE STG 3 UNSP] Onset: 05-21-2022 Unclassified (1 source) CONTACT W/AND (SUSP) EXPOS COVID-19; Translations: [CONTACT W/AND (SUSP) EXPOS COVID-19] Onset: 11-22-2021 Viral infection (3 sources) COVID-19; Translations: [COVID-19] Onset: 05-05-2022 Past or Other Problems Problem Classification Problem Date Documented Date Episodic/Chronic Acute and unspecified renal failure (1 source) Acute kidney failure, unspecified; Translations: [ACUTE KIDNEY FAILURE UNSPECIFIED] Onset: 11-22-2021 Episodic Immunizations and screening for infectious disease (1 source) Contact with and (suspected) exposure to pediculosis, acariasis and other infestations; Translations: [CONTACT EXPOS PEDICULOS ACARIAS OTH] Onset: 11-29-2021 Episodic Open wounds of extremities (1 source) Unspecified open wound, right lower leg, initial encounter; Translations: [UNS OPEN WOUND RT LOWER LEG INITIAL] Onset: 07-06-2021 Episodic Other skin disorders (4 sources) Localized swelling, mass and lump, lower limb, bilateral; Translations: [LOC SWELL MASS LUMP LOW LIMB BRITTANY] Onset: 09-05-2021 Episodic Residual codes; unclassified (1 source) Edema, unspecified; Translations: [EDEMA UNSPECIFIED] Onset: 11-29-2021 Episodic Residual codes; unclassified (1 source) Patient's other noncompliance with medication regimen; Translations: [PT OTH NONCOMPLIANCE W/ MED REGIMEN] Onset: 11-29-2021 Episodic Residual codes; unclassified (1 source) Generalized edema; Translations: [GENERALIZED EDEMA] Onset: 10-17-2021 Episodic Results Test Name Value Interpretation Reference Range Facility Aspartate Amino Transferaseo n 06-06-2023 AST [Catalytic activity/Vol] 15 U/L Normal 13-39 [facility] Comment on above: Performed By: #### T SH3, BMP, AST #### [facility] [address] [place] [address] Basic Metabolic Panelon 05-26 Anion gap [Moles/Vol] 14.7 mmol/L Normal 6.0-15.0 [facility] Comment on above: Performed By: #### T SH3, BMP, AST #### [address] Calcium [Mass/Vol] 9.2 mg/dL Normal 8.6-10.3 [facility] Comment on above: Performed By: #### T SH3, BMP, AST #### [facility] [address] [place] [address] Chloride [Moles/Vol] 101 mmol/L Normal 98-107 [facility] Comment on above: Performed By: #### T SH3, BMP, AST #### [facility] [address] [place] [address] CO2 [Moles/Vol] 28.1 mmol/L Normal 21.0-31.0 [facility] Comment on above: Performed By: #### T SH3, BMP, AST #### [facility] [address] [place] [address] Creatinine [Mass/Vol] 2.15 mg/dL High 0.70-1.30 [facility] Comment on above: Performed By: #### T SH3, BMP, AST #### [facility] [address] [place] [address] [place] GFR/1.73 sq M.predicted MDRD (S/P/Bld) [Vol rate/Area] 29.435 mL/min/{1.73_m2} Normal [facility] Comment on above: Performed By: #### T SH3, BMP, AST #### [address] [place] [address] [place] Glucose [Mass/Vol] 194 mg/dL High 70-100 [facility] Comment on above: Result Comment: [place] Glucose Reference Range is dependent on time and content of last meal. Glucose of more than 200 mg/dL in a nonstressed, ambulatory subject supports the diagnosis of Diabetes Mellitus. ADA recommended reference range Performed By: #### T SH3, BMP, AST #### [facility] [address] [place] [address] Potassium [Moles/Vol] 4.8 mmol/L Normal 3.5-5.1 [facility] Comment on above: Performed By: #### T SH3, BMP, AST #### [address] Sodium [Moles/Vol] 139 mmol/L Normal 136-145 [facility] Comment on above: Performed By: #### T SH3, BMP, AST #### [address] Urea nitrogen [Mass/Vol] 37 mg/dL High 7-25 [facility] Comment on above: Performed By: #### T SH3, BMP, AST #### [facility] [address] [place] [address] Thyroid Stimulating Hormoneo n 06-06-2023 TSH Qn 38.42 m[IU]/L High 0.45-5.33 [facility] Comment on above: Result Comment: PERF ORMED BY: [address] [place] [address] PATHOLOGIST POWER SWEEPER OPERATOR KARINA JOYNER M.D. Performed By: #### T SH3, BMP, AST #### [facility] [address] [place] [address] XR chest 2V*on 06-06-2023 XR chest 2V* [facility] [place] [address] [place] [address] XRay Report Signed Patient: Rachel Casanova SR MR#: [id number] : 1935 Acct:[id number] Age/Sex: 87 / M ADM Date: 06/06/23 Loc: RT Room: Type: [facility] Attending Dr: Felice Sanches MD Copies to: Felice Sanches MD, [facility] Ordering Provider: Felice Sanches MD, [facility] Date of Service: 06/06/23 XR/XR chest 2V*: I48.91,Z72.53 Chest 2 views CLINICAL HISTORY: Long-term medication use. COMPARISON: Chest 11/30/2021. FINDINGS: Post CABG changes. Heart is normal in size. No consolidation pneumothorax pleural effusion or free air. XR/XR chest 2V* IMPRESSION: NO ACUTE CARDIOPULMONARY ABNORMALITY. Impression dictated by: Carlton Simon Jr., D.O.06/06/2023 3:58 PM Dictation Location: [place] [address] Transcribed By: [facility] 06/06/231557 Dictated By: Carlton Simon Jr, DO 06/06/231557 Signed By: 06/06/23 155 [facility] BNPon 05-08-2022 Natriuretic peptide B (Bld) [Mass/Vol] 1113.0 pg/mL Normal <=1,800.0 [facility] [place] [facility] Comment on above: Performed By: #### C MP, BNP, CRP #### [facility] [place] [facility] [address] [place] [address] Dr. Alma Prescott CBC AUTO DIFFon 05-08-2022 BASO # 0.0 103/ul Normal 0.0-0.1 [facility] [place] [facility] Comment on above: Performed By: #### A ST, LIPID, ALT, BMP #### [facility] [place] [facility] [address] [address] [address] Alma Prescott Basophils/100 WBC (Bld) 0.1 % Critically low 0.2-2.0 [facility] [place] [facility] Comment on above: Performed By: #### A ST, LIPID, ALT, BMP #### [facility] [place] [facility] [address] [place] [address] Dr. Alma Prescott EO # 0.0 103/ul Normal 0.0-0.7 [facility] [place] [facility] Comment on above: Performed By: #### A ST, LIPID, ALT, BMP #### [facility] [place] [facility] [address] [place] [address] Dr. Alma Prescott Eosinophils/100 WBC (Bld) 0.0 % Critically low 0.9-7.0 [facility] Comment on above: Performed By: #### A ST, LIPID, ALT, BMP #### [facility] [place] [facility] [address] [place] [address] Dr. Alma Prescott Erythrocyte distribution width (RBC) [Ratio] 13.6 % Normal 11.0-15.0 [facility] [place] [facility] Comment on above: Performed By: #### A ST, LIPID, ALT, BMP #### [facility] [place] [facility] [address] [place] [address] Dr. Alma Prescott Hematocrit (Bld) [Volume fraction] 32.3 % Critically low 42.0-54.0 [facility] Comment on above: Performed By: #### A ST, LIPID, ALT, BMP #### [facility] [place] [facility] [address] [place] [address] Dr. Alma Prescott Hemoglobin (Bld) [Mass/Vol] 11.2 g/dL Critically low 14.0-18.0 [facility] Comment on above: Performed By: #### A ST, LIPID, ALT, BMP #### [facility] [place] [facility] [address] [place] [address] Dr. Alma Prescott IG # 0.03 10e3/ul Normal 0.00-0.03 [facility] [place] [facility] Comment on above: Performed By: #### A ST, LIPID, ALT, BMP #### [facility] [place] [facility] [address] [place] [address] Dr. Alma Prescott IG % 0.4 % Normal 0.0-0.5 [facility] [place] [facility] Comment on above: Performed By: #### A ST, LIPID, ALT, BMP #### [facility] [place] [facility] [address] [place] [address] Dr. Alma Prescott LYMPH # 1.4 103/ul Normal 1.2-3.8 [facility] [place] [facility] Comment on above: Performed By: #### A ST, LIPID, ALT, BMP #### [facility] [place] [facility] [address] [place] [address] Dr. Alma Prescott Lymphocytes/100 WBC (Bld) 17.6 % Critically low 20.5-60.0 [facility] [place] [facility] Comment on above: Performed By: #### A ST, LIPID, ALT, BMP #### [facility] [place] [facility] [address] [place] [address] Dr. Alma Prescott MANUAL DIFF REQ NO Normal [facility] Comment on above: Performed By: #### A ST, LIPID, ALT, BMP #### [facility] [place] [facility] [address] [place] [address] Dr. Alma Prescott MCH (RBC) [Entitic mass] 30.2 pg Normal 25.9-34.0 [facility] [place] [facility] Comment on above: Performed By: #### A ST, LIPID, ALT, BMP #### [facility] [place] [facility] [address] [place] [address] Dr. Alma Prescott MCHC (RBC) [Mass/Vol] 34.7 g/dL Normal 29.9-35.2 [facility] [place] [facility] Comment on above: Performed By: #### A ST, LIPID, ALT, BMP #### [facility] [place] [facility] [address] [place] [address] Dr. Alma Prescott MCV (RBC) [Entitic vol] 87.1 fL Normal 80.0-94.0 [facility] [place] [facility] Comment on above: Performed By: #### A ST, LIPID, ALT, BMP #### [facility] [place] [facility] [address] [place] [address] Dr. Alma Prescott MONO # 0.5 103/ul Normal 0.3-0.8 [facility] [place] [facility] Comment on above: Performed By: #### A ST, LIPID, ALT, BMP #### [facility] [place] [facility] [address] [place] [address] Dr. Alma Prescott Monocytes/100 WBC (Bld) 6.2 % Normal 1.7-12.0 [facility] [place] [facility] Comment on above: Performed By: #### A ST, LIPID, ALT, BMP #### [facility] [place] [facility] [address] [place] [address] Dr. Alma Prescott NEUT # 5.9 103/ul Normal 1.4-6.5 [facility] [place] [facility] Comment on above: Performed By: #### A ST, LIPID, ALT, BMP #### [facility] [place] [facility] [address] [address] [address] Alma Prescott Neutrophils/100 WBC (Bld) 75.7 % Critically high 43.0-75.0 [facility] Comment on above: Performed By: #### A ST, LIPID, ALT, BMP #### [facility] [place] [facility] [address] [place] [address] Dr. Alma Prescott Platelet mean volume (Bld) [Entitic vol] 10.6 fL Normal 9.5-13.5 [facility] Comment on above: Performed By: #### A ST, LIPID, ALT, BMP #### [facility] [place] [facility] [address] [place] [address] Dr. Alma Prescott PLT 198 103/ul Normal 150-450 [facility] [place] [facility] Comment on above: Performed By: #### A ST, LIPID, ALT, BMP #### [facility] [place] [facility] [address] [place] [address] Dr. Alma Prescott RBC 3.71 106/ul Critically low 4.70-6.10 [facility] Comment on above: Performed By: #### A ST, LIPID, ALT, BMP #### [facility] [place] [facility] [address] [place] [address] Dr. Alma Prescott WBC 7.9 103/ul Normal 4.0-11.0 [facility] [place] [facility] Comment on above: Performed By: #### A ST, LIPID, ALT, BMP #### [facility] [place] [facility] [address] [place] [address] Dr. Alma Prescott CULTURE URINEon 05-08-2022 CULTURE URINE Culture Observations : MODERATE GROWTH OF MIXED SKIN YOEL. NO POTENTIAL PATHOGENS SEEN. Normal [facility] [place] [facility] Comment on above: Performed By: #### C MP, BNP #### [facility] [place] [facility] [address] [place] [address] Dr. Alma Prescott ER URINE PROFILEon Bilirubin Ql (U) Negative Normal NEGATIVE [facility] Comment on above: Performed By: #### A ST, LIPID, ALT, BMP #### [facility] [place] [facility] [address] [address] [address] Alma Prescott Clarity (U) CLEAR Normal CLEAR [facility] [place] [facility] Comment on above: Performed By: #### A ST, LIPID, ALT, BMP #### [facility] [place] [facility] [address] [address] [address] Alma Prescott Color (U) LT. YELLOW Normal YELLOW [facility] [place] [facility] Comment on above: Performed By: #### A ST, LIPID, ALT, BMP #### [facility] [place] [facility] [address] [address] [address] Alma MCNAMARA A micrscopic examination will be performed if indicated. Normal [facility] [place] [facility] Comment on above: Performed By: #### A ST, LIPID, ALT, BMP #### [facility] [place] [facility] [address] [place] [address] Dr. Alma Prescott Glucose Ql (U) >1000 Abnormal NEGATIVE [facility] Comment on above: Performed By: #### A ST, LIPID, ALT, BMP #### [facility] [place] [facility] [address] [address] [address] Alma Prescott Hemoglobin Ql (U) MODERATE Abnormal NEGATIVE [facility] Comment on above: Performed By: #### A ST, LIPID, ALT, BMP #### [facility] [place] [facility] [address] [place] [address] Dr. Alma Prescott Ketones Ql (U) Negative Normal NEGATIVE [facility] Comment on above: Performed By: #### A ST, LIPID, ALT, BMP #### [facility] [place] [facility] [address] [place] [address] Dr. Alma Prescott LEUKOCYTES Negative Normal NEGATIVE [facility] Comment on above: Performed By: #### A ST, LIPID, ALT, BMP #### [facility] [place] [facility] [address] [address] [address] Alma Prescott Nitrite Ql (U) Negative Normal NEGATIVE [facility] Comment on above: Performed By: #### A ST, LIPID, ALT, BMP #### [facility] [place] [facility] [address] [place] [address] Dr. Alma Prescott pH (U) 5.0 [pH] Normal 5-9 [facility] Comment on above: Performed By: #### A ST, LIPID, ALT, BMP #### [facility] [place] [facility] [address] [address] [address] Alma Prescott SPEC GRAVITY 1.025 Normal 1.005-<=1.025 [facility] Comment on above: Performed By: #### A ST, LIPID, ALT, BMP #### [facility] [place] [facility] [address] [address] [address] Alma Prescott UA PROTEIN >300 Abnormal NEGATIVE/ TRACE [facility] Comment on above: Performed By: #### A ST, LIPID, ALT, BMP #### [facility] [place] [facility] [address] [address] [address] Alma Prescott UR MICRO IND INDICATED Normal [facility] Comment on above: Performed By: #### A ST, LIPID, ALT, BMP #### [facility] [place] [facility] [address] [place] [address] Dr. Alma Prescott Urobilinogen Qn (U) 0.2 {Chema'U}/dL Normal 0.2 - 1.0 [facility] Comment on above: Performed By: #### A ST, LIPID, ALT, BMP #### [facility] [place] [facility] [address] [place] [address] Dr. Alma Prescott POINT OF CARE GLUCOSEon 04-25 Glucose [Mass/Vol] 371 mg/dL Critically high 74-106 [facility] Comment on above: Performed By: #### C MP, BNP, CRP #### [facility] [place] [facility] [address] [place] [address] Dr. Alma Prescott Glucose [Mass/Vol] 454 mg/dL Critically high 74-106 [facility] Comment on above: Performed By: #### A ST, LIPID, ALT, BMP #### [facility] [place] [facility] [address] [place] [address] Dr. Alma Prescott PROF 14(COMP METB)on 022 Albumin [Mass/Vol] 2.0 g/dL Critically low 3.4-5.0 [facility] Comment on above: Performed By: #### C MP, BNP, CRP #### [facility] [place] [facility] [address] [address] [address] Alma Prescott Albumin/Globulin [Mass ratio] 0.6 {ratio} Normal [facility] Comment on above: Performed By: #### C MP, BNP, CRP #### [facility] [place] [facility] [address] [address] [address] Alma Prescott ALP [Catalytic activity/Vol] 57 U/L Normal 46-116 [facility] Comment on above: Performed By: #### C MP, BNP, CRP #### [facility] [place] [facility] [address] [address] [address] Alma Prescott ALT [Catalytic activity/Vol] 52 U/L Normal 16-63 [facility] Comment on above: Performed By: #### C MP, BNP, CRP #### [facility] [place] [facility] [address] [place] [address] Dr. Alma Prescott Anion gap [Moles/Vol] 14.8 mmol/L Normal [facility] Comment on above: Performed By: #### C MP, BNP, CRP #### [facility] [place] [facility] [address] [address] [address] Alma Prescott AST [Catalytic activity/Vol] 62 U/L Critically high 15-37 [facility] Comment on above: Performed By: #### C MP, BNP, CRP #### [facility] [place] [facility] [address] [place] [address] Dr. Alma Prescott Bilirubin [Mass/Vol] 0.1 mg/dL Critically low 0.2-1.0 [facility] Comment on above: Performed By: #### C MP, BNP, CRP #### [facility] [place] [facility] [address] [address] [address] Alma Prescott Calcium [Mass/Vol] 8.1 mg/dL Critically low 8.5-10.1 [facility] Comment on above: Performed By: #### C MP, BNP, CRP #### [facility] [place] [facility] [address] [address] [address] Alma Prescott Chloride [Moles/Vol] 99 mmol/L Normal 98-107 [facility] Comment on above: Performed By: #### C MP, BNP, CRP #### [facility] [place] [facility] [address] [address] [address] Alma Prescott CO2 [Moles/Vol] 19.8 mmol/L Critically low 21.0-32.0 [facility] Comment on above: Performed By: #### C MP, BNP, CRP #### [facility] [place] [facility] [address] [address] [address] Alma Prescott Creatinine [Mass/Vol] 2.80 mg/dL Critically high 0.70-1.30 [facility] Comment on above: Performed By: #### C MP, BNP, CRP #### [facility] [place] [facility] [address] [address] [address] Alma Prescott EGFR-AF TUVALUAN 26 mL/min/1.73m2 Critically low >=60 [facility] Comment on above: Performed By: #### C MP, BNP, CRP #### [facility] [place] [facility] [address] [address] [address] Alma Prescott EGFR-NON AF TUVALUAN 22 mL/min/1.73m2 Critically low >=60 [facility] Comment on above: Performed By: #### C MP, BNP, CRP #### [facility] [place] [facility] [address] [address] [address] Alma Prescott Globulin (S) [Mass/Vol] 3.5 g/dL Normal [facility] Comment on above: Performed By: #### C MP, BNP, CRP #### [facility] [place] [facility] [address] [address] [address] Alma Prescott Glucose [Mass/Vol] 330 mg/dL Critically high 74-106 [facility] Comment on above: Performed By: #### C MP, BNP, CRP #### [facility] [place] [facility] [address] [address] [address] Alma Prescott Potassium [Moles/Vol] 3.6 mmol/L Normal 3.5-5.1 [facility] Comment on above: Performed By: #### C MP, BNP, CRP #### [facility] [place] [facility] [address] [address] [address] Alma Prescott Protein [Mass/Vol] 5.5 g/dL Critically low 6.4-8.2 [facility] Comment on above: Performed By: #### C MP, BNP, CRP #### [facility] [place] [facility] [address] [place] [address] Dr. Alma Prescott Sodium [Moles/Vol] 130 mmol/L Critically low 136-145 [facility] Comment on above: Performed By: #### C MP, BNP, CRP #### [facility] [place] [facility] [address] [place] [address] Dr. Alma Prescott Urea nitrogen [Mass/Vol] 63.0 mg/dL Critically high 7.0-18.0 [facility] Comment on above: Performed By: #### C MP, BNP, CRP #### [facility] [place] [facility] [address] [place] [address] Dr. Alma Prescott Urea nitrogen/Creatinin e [Mass ratio] 22.5 mg/mg Normal [facility] Comment on above: Performed By: #### C MP, BNP, CRP #### [facility] [place] [facility] [address] [place] [address] Dr. Alma Prescott URINE MICROSCOPIC ONLYon BACTERIA MODERATE Abnormal NONE SEEN [facility] [place] [facility] Comment on above: Performed By: #### A ST, LIPID, ALT, BMP #### [facility] [place] [facility] [address] [place] [address] Dr. Alma Prescott Bacteria identified Cx Nom (U) INDICATED Normal [facility] [place] [facility] Comment on above: Performed By: #### A ST, LIPID, ALT, BMP #### [facility] [place] [facility] [address] [place] [address] Dr. Alma Prescott CAST NONE SEEN Normal NONE SEEN [facility] [place] [facility] Comment on above: Performed By: #### A ST, LIPID, ALT, BMP #### [facility] [place] [facility] [address] [place] [address] Dr. Alma Prescott Crystals LM Nom (Urine sed) NONE SEEN Normal NONE SEEN [facility] Comment on above: Performed By: #### A ST, LIPID, ALT, BMP #### [facility] [place] [facility] [address] [place] [address] Dr. Alma Prescott Epithelial cells LM Ql (Urine sed) FEW Abnormal NONE SEEN /RARE [facility] [place] [facility] Comment on above: Performed By: #### A ST, LIPID, ALT, BMP #### [facility] [place] [facility] [address] [place] [address] Dr. Alma Prescott MUCOUS NONE SEEN Normal NONE SEEN [facility] [place] [facility] Comment on above: Performed By: #### A ST, LIPID, ALT, BMP #### [facility] [place] [facility] [address] [place] [address] Dr. Alma Prescott RBC 0-2 Normal 0-2 [facility] [place] [facility] Comment on above: Performed By: #### A ST, LIPID, ALT, BMP #### [facility] [place] [facility] [address] [place] [address] Dr. Alma Prescott WBC 0-2 Abnormal NONE SEEN [facility] [place] [facility] Comment on above: Performed By: #### A ST, LIPID, ALT, BMP #### [facility] [place] [facility] [address] [place] [address] Dr. Alma Prescott BNPon 05-07-2022 Natriuretic peptide B (Bld) [Mass/Vol] 1091.0 pg/mL Normal <=1,800.0 [facility] Comment on above: Performed By: #### C MP, BNP #### [facility] [place] [facility] [address] [place] [address] Dr. Alma Prescott CBC AUTO DIFFon 05-07-2022 BASO # 0.0 103/ul Normal 0.0-0.1 [facility] Comment on above: Performed By: #### A ST, LIPID, ALT, BMP #### [facility] [place] [facility] [address] [place] [address] Dr. Alma Prescott Basophils/100 WBC (Bld) 0.1 % Critically low 0.2-2.0 [facility] Comment on above: Performed By: #### A ST, LIPID, ALT, BMP #### [facility] [place] [facility] [address] [place] [address] Dr. Alma Prescott EO # 0.0 103/ul Normal 0.0-0.7 [facility] [place] [facility] Comment on above: Performed By: #### A ST, LIPID, ALT, BMP #### [facility] [place] [facility] [address] [place] [address] Dr. Alma Prescott Eosinophils/100 WBC (Bld) 0.0 % Critically low 0.9-7.0 [facility] Comment on above: Performed By: #### A ST, LIPID, ALT, BMP #### [facility] [place] [facility] [address] [place] [address] Dr. Alma Prescott Erythrocyte distribution width (RBC) [Ratio] 13.6 % Normal 11.0-15.0 [facility] [place] [facility] Comment on above: Performed By: #### A ST, LIPID, ALT, BMP #### [facility] [place] [facility] [address] [place] [address] Dr. Alma Prescott Hematocrit (Bld) [Volume fraction] 33.4 % Critically low 42.0-54.0 [facility] Comment on above: Performed By: #### A ST, LIPID, ALT, BMP #### [facility] [place] [facility] [address] [place] [address] Dr. Alma Prescott Hemoglobin (Bld) [Mass/Vol] 11.4 g/dL Critically low 14.0-18.0 [facility] Comment on above: Performed By: #### A ST, LIPID, ALT, BMP #### [facility] [place] [facility] [address] [place] [address] Dr. Alma Prescott IG # 0.06 10e3/ul Critically high 0.00-0.03 [facility] Comment on above: Performed By: #### A ST, LIPID, ALT, BMP #### [facility] [place] [facility] [address] [place] [address] Dr. Alma Prescott IG % 0.7 % Critically high 0.0-0.5 [facility] Comment on above: Performed By: #### A ST, LIPID, ALT, BMP #### [facility] [place] [facility] [address] [place] [address] Dr. Alma Prescott LYMPH # 1.3 103/ul Normal 1.2-3.8 [facility] Comment on above: Performed By: #### A ST, LIPID, ALT, BMP #### [facility] [place] [facility] [address] [place] [address] Dr. Alma Prescott Lymphocytes/100 WBC (Bld) 14.6 % Critically low 20.5-60.0 [facility] [place] [facility] Comment on above: Performed By: #### A ST, LIPID, ALT, BMP #### [facility] [place] [facility] [address] [place] [address] Dr. Alma Prescott MANUAL DIFF REQ NO Normal [facility] Comment on above: Performed By: #### A ST, LIPID, ALT, BMP #### [facility] [place] [facility] [address] [place] [address] Dr. Alma Prescott MCH (RBC) [Entitic mass] 30.5 pg Normal 25.9-34.0 [facility] [place] [facility] Comment on above: Performed By: #### A ST, LIPID, ALT, BMP #### [facility] [place] [facility] [address] [place] [address] Dr. Alma Prescott MCHC (RBC) [Mass/Vol] 34.1 g/dL Normal 29.9-35.2 [facility] [place] [facility] Comment on above: Performed By: #### A ST, LIPID, ALT, BMP #### [facility] [place] [facility] [address] [place] [address] Dr. Alma Prescott MCV (RBC) [Entitic vol] 89.3 fL Normal 80.0-94.0 [facility] [place] [facility] Comment on above: Performed By: #### A ST, LIPID, ALT, BMP #### [facility] [place] [facility] [address] [place] [address] Dr. Alma Prescott MONO # 0.5 103/ul Normal 0.3-0.8 [facility] [place] [facility] Comment on above: Performed By: #### A ST, LIPID, ALT, BMP #### [facility] [place] [facility] [address] [place] [address] Dr. Alma Prescott Monocytes/100 WBC (Bld) 5.5 % Normal 1.7-12.0 [facility] [place] [facility] Comment on above: Performed By: #### A ST, LIPID, ALT, BMP #### [facility] [place] [facility] [address] [place] [address] Dr. Alma Prescott NEUT # 7.1 103/ul Critically high 1.4-6.5 [facility] Comment on above: Performed By: #### A ST, LIPID, ALT, BMP #### [facility] [place] [facility] [address] [place] [address] Dr. Alma Prescott Neutrophils/100 WBC (Bld) 79.1 % Critically high 43.0-75.0 [facility] Comment on above: Performed By: #### A ST, LIPID, ALT, BMP #### [facility] [address] [place] [address] Dr. Alma Prescott Platelet mean volume (Bld) [Entitic vol] 10.7 fL Normal 9.5-13.5 [facility] Comment on above: Performed By: #### A ST, LIPID, ALT, BMP #### [facility] [address] [place] [address] Dr. Alma Prescott PLT 211 103/ul Normal 150-450 [facility] Comment on above: Performed By: #### A ST, LIPID, ALT, BMP #### [facility] [address] [place] [address] Dr. Alma Prescott RBC 3.74 106/ul Critically low 4.70-6.10 [facility] Comment on above: Performed By: #### A ST, LIPID, ALT, BMP #### [facility] [address] [place] [address] Dr. Alma Prescott WBC 9.0 103/ul Normal 4.0-11.0 [facility] Comment on above: Performed By: #### A ST, LIPID, ALT, BMP #### [facility] [address] [place] [address] Dr. Alma Prescott POINT OF CARE GLUCOSEon 04-25 Glucose [Mass/Vol] 474 mg/dL Critically high 74-106 [facility] Comment on above: Performed By: #### A ST, LIPID, ALT, BMP #### [facility] [address] [place] [address] Dr. Alma Prescott Glucose [Mass/Vol] 371 mg/dL Critically high 74-106 [facility] Comment on above: Performed By: #### C BC #### [facility] [address] [place] [address] Dr. Alma Prescott Glucose [Mass/Vol] 439 mg/dL Critically high 74-106 [facility] Comment on above: Performed By: #### A ST, LIPID, ALT, BMP #### [facility] [address] [address] [address] Alma Prescott PROF 14(COMP METB)on 05-07- 022 Albumin [Mass/Vol] 2.0 g/dL Critically low 3.4-5.0 Th [facility] Comment on above: Performed By: #### C MP, BNP #### [facility] [address] [place] [address] Dr. Alma Prescott Albumin/Globulin [Mass ratio] 0.5 {ratio} Normal [facility] Comment on above: Performed By: #### C MP, BNP #### [facility] [address] [place] [address] Dr. Alma Prescott ALP [Catalytic activity/Vol] 53 U/L Normal 46-116 [facility] Comment on above: Performed By: #### C MP, BNP #### [facility] [address] [place] [address] Dr. Alma Perscott ALT [Catalytic activity/Vol] 29 U/L Normal 16-63 [facility] Comment on above: Performed By: #### C MP, BNP #### [facility] [address] [place] [address] Dr. Alma Prescott Anion gap [Moles/Vol] 14.7 mmol/L Normal [facility] Comment on above: Performed By: #### C MP, BNP #### [facility] [address] [place] [address] Dr. Alma Prescott AST [Catalytic activity/Vol] 47 U/L Critically high 15-37 [facility] Comment on above: Performed By: #### C MP, BNP #### [facility] [address] [place] [address] Dr. Alma Prescott Bilirubin [Mass/Vol] 0.2 mg/dL Normal 0.2-1.0 [facility] Comment on above: Performed By: #### C MP, BNP #### [facility] [address] [address] [address] Alma Prescott Calcium [Mass/Vol] 7.8 mg/dL Critically low 8.5-10.1 Th [facility] Comment on above: Performed By: #### C MP, BNP #### [facility] [address] [place] [address] Dr. Alma Prescott Chloride [Moles/Vol] 98 mmol/L Normal 98-107 [facility] Comment on above: Performed By: #### C MP, BNP #### [facility] [address] [place] [address] Dr. Alma Prescott CO2 [Moles/Vol] 22.2 mmol/L Normal 21.0-32.0 [facility] Comment on above: Performed By: #### C MP, BNP #### [facility] [address] [place] [address] Dr. Alma Prescott Creatinine [Mass/Vol] 2.80 mg/dL Critically high 0.70-1.30 [facility] Comment on above: Performed By: #### C MP, BNP #### [facility] [address] [place] [address] Dr. Alma Prescott EGFR-AF TUVALUAN 26 mL/min/1.73m2 Critically low >=60 [facility] Comment on above: Performed By: #### C MP, BNP #### [facility] [address] [place] [address] Dr. Alma Prescott EGFR-NON AF TUVALUAN 22 mL/min/1.73m2 Critically low >=60 [facility] Comment on above: Performed By: #### C MP, BNP #### [facility] [address] [place] [address] Dr. Alma Prescott Globulin (S) [Mass/Vol] 3.7 g/dL Normal [facility] Comment on above: Performed By: #### C MP, BNP #### [facility] [address] [place] [address] Dr. Alma Prescott Glucose [Mass/Vol] 323 mg/dL Critically high 74-106 [facility] Comment on above: Performed By: #### C MP, BNP #### [facility] [address] [place] [address] Dr. Alma Prescott Potassium [Moles/Vol] 3.9 mmol/L Normal 3.5-5.1 [facility] Comment on above: Performed By: #### C MP, BNP #### [facility] [address] [place] [address] Dr. Alma Prescott Protein [Mass/Vol] 5.7 g/dL Critically low 6.4-8.2 [facility] Comment on above: Performed By: #### C MP, BNP #### [facility] [address] [place] [address] Dr. Alma Prescott Sodium [Moles/Vol] 131 mmol/L Critically low 136-145 [facility] Comment on above: Performed By: #### C MP, BNP #### [facility] [address] [place] [address] Dr. Alma Prescott Urea nitrogen [Mass/Vol] 58.0 mg/dL Critically high 7.0-18.0 [facility] Comment on above: Performed By: #### C MP, BNP #### [facility] [address] [place] [address] Dr. Alma Prescott Urea nitrogen/Creatinin e [Mass ratio] 20.7 mg/mg Normal [facility] Comment on above: Performed By: #### C MP, BNP #### [facility] [address] [place] [address] Dr. Alma Prescott BNPon 05-06-2022 Natriuretic peptide B (Bld) [Mass/Vol] 1590.0 pg/mL Normal <=1,800.0 [facility] Comment on above: Performed By: #### A ST, LIPID, ALT, BMP #### [facility] [address] [place] [address] Dr. Alma Prescott CBC AUTO DIFFon 05-06-2022 BASO # 0.0 103/ul Normal 0.0-0.1 [facility] Comment on above: Performed By: #### A ST, LIPID, ALT, BMP #### [facility] [address] [place] [address] Dr. Alma Prescott Basophils/100 WBC (Bld) 0.8 % Normal 0.2-2.0 [facility] Comment on above: Performed By: #### A ST, LIPID, ALT, BMP #### [facility] [address] [place] [address] Dr. Alma Prescott EO # 0.1 103/ul Normal 0.0-0.7 [facility] Comment on above: Performed By: #### A ST, LIPID, ALT, BMP #### [facility] [address] [place] [address] Dr. Alma Prescott Eosinophils/100 WBC (Bld) 1.4 % Normal 0.9-7.0 [facility] Comment on above: Performed By: #### A ST, LIPID, ALT, BMP #### [facility] [address] [place] [address] Dr. Alma Prescott Erythrocyte distribution width (RBC) [Ratio] 13.6 % Normal 11.0-15.0 [facility] Comment on above: Performed By: #### A ST, LIPID, ALT, BMP #### [facility] [address] [place] [address] Dr. Alma Prescott Hematocrit (Bld) [Volume fraction] 38.1 % Critically low 42.0-54.0 [facility] Comment on above: Performed By: #### A ST, LIPID, ALT, BMP #### [facility] [address] [place] [address] Dr. Alma Prescott Hemoglobin (Bld) [Mass/Vol] 12.8 g/dL Critically low 14.0-18.0 [facility] Comment on above: Performed By: #### A ST, LIPID, ALT, BMP #### [facility] [address] [place] [address] Dr. Alma Prescott IG # 0.01 10e3/ul Normal 0.00-0.03 [facility] Comment on above: Performed By: #### A ST, LIPID, ALT, BMP #### [facility] [address] [place] [address] Dr. Alma Prescott IG % 0.2 % Normal 0.0-0.5 [facility] Comment on above: Performed By: #### A ST, LIPID, ALT, BMP #### [facility] [address] [place] [address] Dr. Alma Prescott LYMPH # 0.9 103/ul Critically low 1.2-3.8 [facility] Comment on above: Performed By: #### A ST, LIPID, ALT, BMP #### [facility] [address] [place] [address] Dr. Alma Prescott Lymphocytes/100 WBC (Bld) 16.8 % Critically low 20.5-60.0 [facility] Comment on above: Performed By: #### A ST, LIPID, ALT, BMP #### [facility] [address] [place] [address] Dr. Alma Prescott MANUAL DIFF REQ NO Normal [facility] Comment on above: Performed By: #### A ST, LIPID, ALT, BMP #### [facility] [address] [place] [address] Dr. Alma Prescott MCH (RBC) [Entitic mass] 30.2 pg Normal 25.9-34.0 [facility] Comment on above: Performed By: #### A ST, LIPID, ALT, BMP #### [facility] [address] [place] [address] Dr. Alma Prescott MCHC (RBC) [Mass/Vol] 33.6 g/dL Normal 29.9-35.2 [facility] Comment on above: Performed By: #### A ST, LIPID, ALT, BMP #### [facility] [address] [place] [address] Dr. Alma Prescott MCV (RBC) [Entitic vol] 89.9 fL Normal 80.0-94.0 [facility] Comment on above: Performed By: #### A ST, LIPID, ALT, BMP #### [facility] [address] [place] [address] Dr. Alma Prescott MONO # 0.1 103/ul Critically low 0.3-0.8 [facility] Comment on above: Performed By: #### A ST, LIPID, ALT, BMP #### [facility] [address] [address] [address] Alma Prescott Monocytes/100 WBC (Bld) 2.5 % Normal 1.7-12.0 [facility] Comment on above: Performed By: #### A ST, LIPID, ALT, BMP #### [facility] [address] [address] [address] Alma Prescott NEUT # 4.0 103/ul Normal 1.4-6.5 [facility] Comment on above: Performed By: #### A ST, LIPID, ALT, BMP #### [facility] [address] [address] [address] Alma Prescott Neutrophils/100 WBC (Bld) 78.3 % Critically high 43.0-75.0 [facility] Comment on above: Performed By: #### A ST, LIPID, ALT, BMP #### [facility] [address] [place] [address] Dr. Alma Prescott Platelet mean volume (Bld) [Entitic vol] 10.2 fL Normal 9.5-13.5 [facility] Comment on above: Performed By: #### A ST, LIPID, ALT, BMP #### [facility] [address] [place] [address] Dr. Alma Prescott PLT 202 103/ul Normal 150-450 [facility] Comment on above: Performed By: #### A ST, LIPID, ALT, BMP #### [facility] [address] [address] [address] Alma Prescott RBC 4.24 106/ul Critically low 4.70-6.10 [facility] Comment on above: Performed By: #### A ST, LIPID, ALT, BMP #### [facility] [address] [place] [address] Dr. Alma Prescott WBC 5.1 103/ul Normal 4.0-11.0 [facility] Comment on above: Performed By: #### A ST, LIPID, ALT, BMP #### [facility] [address] [place] [address] Dr. Alma Prescott IRON AND TIBCon 05-06-2022 % SATURATION 14.0 % Normal [facility] Comment on above: Performed By: #### A ST, LIPID, ALT, BMP #### [facility] [address] [place] [address] Dr. Alma Prescott Iron [Mass/Vol] 34.0 ug/dL Critically low 65.0-175.0 [facility] Comment on above: Performed By: #### A ST, LIPID, ALT, BMP #### [facility] [address] [place] [address] Dr. Alma Prescott TIBC DIRECT 243.0 ug/dL Critically low 250.0-450.0 [facility] Comment on above: Performed By: #### A ST, LIPID, ALT, BMP #### [facility] [address] [place] [address] Dr. Alma Prescott POINT OF CARE GLUCOSEon 04-25 Glucose [Mass/Vol] 381 mg/dL Critically high [address] [place] [id number] Comment on above: Performed By: #### C MP, BNP, CRP #### [facility] [address] [place] [address] Dr. Alma Prescott Glucose [Mass/Vol] 384 mg/dL Critically high [address] [place] [id number] Comment on above: Performed By: #### A ST, LIPID, ALT, BMP #### [facility] [address] [place] [address] Dr. Alma Prescott Glucose [Mass/Vol] 595 mg/dL Critically high [address] [place] [id number] Comment on above: Result Comment: Resu lt Not Confirmed Performed By: #### A ST, LIPID, ALT, BMP #### [facility] [address] [place] [address] Dr. Alma Prescott Glucose [Mass/Vol] 559 mg/dL Critically high [address] [place] [id number] Comment on above: Result Comment: Prev iously Confirmed Performed By: #### C MP, BNP, CRP #### [facility] [address] [place] [address] Dr. Alma Prescott PROF 14(COMP METB)on 022 Albumin [Mass/Vol] 2.3 g/dL Critically low 3.4-5.0 Th [facility] Comment on above: Performed By: #### A ST, LIPID, ALT, BMP #### [facility] [address] [place] [address] Dr. Alma Prescott Albumin/Globulin [Mass ratio] 0.5 {ratio} Normal [facility] Comment on above: Performed By: #### A ST, LIPID, ALT, BMP #### [facility] [address] [place] [address] Dr. Alma Prescott ALP [Catalytic activity/Vol] 70 U/L Normal 46-116 [facility] Comment on above: Performed By: #### A ST, LIPID, ALT, BMP #### [facility] [address] [place] [address] Dr. Alma Prescott ALT [Catalytic activity/Vol] 25 U/L Normal 16-63 [facility] Comment on above: Performed By: #### A ST, LIPID, ALT, BMP #### [facility] [address] [place] [address] Dr. Alma Prescott Anion gap [Moles/Vol] 14.8 mmol/L Normal [facility] Comment on above: Performed By: #### A ST, LIPID, ALT, BMP #### [facility] [address] [place] [address] Dr. Alma Prescott AST [Catalytic activity/Vol] 43 U/L Critically high 15-37 [facility] Comment on above: Performed By: #### A ST, LIPID, ALT, BMP #### [facility] [address] [place] [address] Dr. Alma Prescott Bilirubin [Mass/Vol] 0.2 mg/dL Normal 0.2-1.0 [facility] Comment on above: Performed By: #### A ST, LIPID, ALT, BMP #### [facility] [address] [place] [address] Dr. Alma Prescott Calcium [Mass/Vol] 8.8 mg/dL Normal 8.5-10.1 [facility] Comment on above: Performed By: #### A ST, LIPID, ALT, BMP #### [facility] [address] [address] [address] Alma Prescott Chloride [Moles/Vol] 98 mmol/L Normal 98-107 [facility] Comment on above: Performed By: #### A ST, LIPID, ALT, BMP #### [facility] [address] [address] [address] Alma Prescott CO2 [Moles/Vol] 22.5 mmol/L Normal 21.0-32.0 [facility] Comment on above: Performed By: #### A ST, LIPID, ALT, BMP #### [facility] [address] [place] [address] Dr. Alma Prescott Creatinine [Mass/Vol] 1.96 mg/dL Critically high 0.70-1.30 [facility] Comment on above: Performed By: #### A ST, LIPID, ALT, BMP #### [facility] [address] [place] [address] Dr. Alma Prescott EGFR-AF TUVALUAN 40 mL/min/1.73m2 Critically low >=60 [facility] Comment on above: Performed By: #### A ST, LIPID, ALT, BMP #### [facility] [address] [place] [address] Dr. Alma Prescott EGFR-NON AF TUVALUAN 33 mL/min/1.73m2 Critically low >=60 [facility] Comment on above: Performed By: #### A ST, LIPID, ALT, BMP #### [facility] [address] [place] [address] Dr. Alma Prescott Globulin (S) [Mass/Vol] 4.2 g/dL Normal [facility] Comment on above: Performed By: #### A ST, LIPID, ALT, BMP #### [facility] [address] [place] [address] Dr. Alma Prescott Glucose [Mass/Vol] 474 mg/dL Critically high 74-106 [facility] Comment on above: Performed By: #### A ST, LIPID, ALT, BMP #### [facility] [address] [address] [address] Alma Prescott Potassium [Moles/Vol] 4.3 mmol/L Normal 3.5-5.1 [facility] Comment on above: Performed By: #### A ST, LIPID, ALT, BMP #### [facility] [address] [place] [address] Dr. Alma Prescott Protein [Mass/Vol] 6.5 g/dL Normal 6.4-8.2 [facility] Comment on above: Performed By: #### A ST, LIPID, ALT, BMP #### [facility] [address] [place] [address] Dr. Alma Prescott Sodium [Moles/Vol] 131 mmol/L Critically low 136-145 [facility] Comment on above: Performed By: #### A ST, LIPID, ALT, BMP #### [facility] [address] [place] [address] Dr. Alma Prescott Urea nitrogen [Mass/Vol] 29.0 mg/dL Critically high 7.0-18.0 [facility] Comment on above: Performed By: #### A ST, LIPID, ALT, BMP #### [facility] [address] [place] [address] Dr. Alma Prescott Urea nitrogen/Creatinin e [Mass ratio] 14.8 mg/mg Normal [facility] Comment on above: Performed By: #### A ST, LIPID, ALT, BMP #### [facility] [address] [place] [address] Dr. Alma Prescott VIT B12 AND FOLATEon 022 Cobalamin (Vitamin B12) [Mass/Vol] 663.0 pg/mL Normal 193.0-986.0 [facility] Comment on above: Performed By: #### A ST, LIPID, ALT, BMP #### [facility] [address] [place] [address] Dr. Alma Prescott FOLATE 17.20 ng/mL Normal 8.60-58.90 [facility] Comment on above: Performed By: #### A ST, LIPID, ALT, BMP #### [facility] [address] [place] [address] Dr. Alma Prescott CBC AUTO DIFFon 05-05-2022 BASO # 0.1 103/ul Normal 0.0-0.1 [facility] Comment on above: Performed By: #### C BC #### [facility] [address] [place] [address] Dr. Alma Prescott Basophils/100 WBC (Bld) 1.1 % Normal 0.2-2.0 [facility] Comment on above: Performed By: #### C BC #### [facility] [address] [place] [address] Dr. Alma Prescott EO # 0.0 103/ul Normal 0.0-0.7 [facility] Comment on above: Performed By: #### C BC #### [facility] [address] [place] [address] Dr. Alma Prescott Eosinophils/100 WBC (Bld) 0.4 % Critically low 0.9-7.0 [facility] Comment on above: Performed By: #### C BC #### [facility] [address] [place] [address] Dr. Alma Prescott Erythrocyte distribution width (RBC) [Ratio] 13.6 % Normal 11.0-15.0 [facility] Comment on above: Performed By: #### C BC #### [facility] [address] [place] [address] Dr. Alma Prescott Hematocrit (Bld) [Volume fraction] 38.8 % Critically low 42.0-54.0 [facility] Comment on above: Performed By: #### C BC #### [facility] [address] [place] [address] Dr. Alma Prescott Hemoglobin (Bld) [Mass/Vol] 13.2 g/dL Critically low 14.0-18.0 [facility] Comment on above: Performed By: #### C BC #### [facility] [address] [place] [address] Dr. Alma Prescott IG # 0.01 10e3/ul Normal 0.00-0.03 [facility] Comment on above: Performed By: #### C BC #### [facility] [address] [place] [address] Dr. Alma Prescott IG % 0.2 % Normal 0.0-0.5 [facility] Comment on above: Performed By: #### C BC #### [facility] [address] [place] [address] Dr. Alma Prescott LYMPH # 0.9 103/ul Critically low 1.2-3.8 [facility] Comment on above: Performed By: #### C BC #### [facility] [address] [place] [address] Dr. Alma Prescott Lymphocytes/100 WBC (Bld) 16.6 % Critically low 20.5-60.0 [facility] Comment on above: Performed By: #### C BC #### [facility] [address] [place] [address] Dr. Alma Prescott MANUAL DIFF REQ NO Normal [facility] Comment on above: Performed By: #### C BC #### [facility] [address] [place] [address] Dr. Alma Prescott MCH (RBC) [Entitic mass] 30.2 pg Normal 25.9-34.0 [facility] Comment on above: Performed By: #### C BC #### [facility] [address] [place] [address] Dr. Alma Prescott MCHC (RBC) [Mass/Vol] 34.0 g/dL Normal 29.9-35.2 [facility] Comment on above: Performed By: #### C BC #### [facility] [address] [place] [address] Dr. Alma Prescott MCV (RBC) [Entitic vol] 88.8 fL Normal 80.0-94.0 [facility] Comment on above: Performed By: #### C BC #### [facility] [address] [place] [address] Dr. Alma Prescott MONO # 0.8 103/ul Normal 0.3-0.8 [facility] Comment on above: Performed By: #### C BC #### [facility] [address] [place] [address] Dr. Alma Prescott Monocytes/100 WBC (Bld) 14.3 % Critically high 1.7-12.0 [facility] Comment on above: Performed By: #### C BC #### [facility] [address] [place] [address] Dr. Alma Prescott NEUT # 3.8 103/ul Normal 1.4-6.5 [facility] Comment on above: Performed By: #### C BC #### [facility] [address] [place] [address] Dr. Alma Prescott Neutrophils/100 WBC (Bld) 67.4 % Normal 43.0-75.0 [facility] Comment on above: Performed By: #### C BC #### [facility] [address] [place] [address] Dr. Alma Prescott Platelet mean volume (Bld) [Entitic vol] 10.5 fL Normal 9.5-13.5 [facility] Comment on above: Performed By: #### C BC #### [facility] [address] [place] [address] Dr. Alma Prescott PLT 216 103/ul Normal 150-450 [facility] Comment on above: Performed By: #### C BC #### [facility] [address] [place] [address] Dr. Alma Prescott RBC 4.37 106/ul Critically low 4.70-6.10 [facility] Comment on above: Performed By: #### C BC #### [facility] [address] [place] [address] Dr. Alma Prescott WBC 5.7 103/ul Normal 4.0-11.0 [facility] Comment on above: Performed By: #### C BC #### [facility] [address] [place] [address] CSPINE WO CONon 2 CT CSPINE WO CON EXAMINATION: CT CSPINE WO CON HISTORY: WEAKNESS COMPARISON: CT neck from 12/31/2019. TECHNIQUE: CT Cervical spine without IV contrast. Coronal and sagittal reformations were performed. Dose reduction techniques were achieved by using automated exposure control and/or adjustment of mA and/or kV according to patient size and/or use of iterative reconstruction technique. FINDINGS: Osseous: The vertebral body heights are maintained. No fracture. Degenerative changes in between the anterior arch of C1 and the dens. Disc height loss at C3-C4 C4-C5 and C6-C7. Fusion of the C4-C5 left facets. Fusion of the right C6/C7 facets. Soft tissues: Pannus formation posterior to the dens encroaches upon the foramen magnum. No focal fluid collection. Infarct at the left cerebellar hemisphere noted. Atherosclerotic vascular calcifications of the carotid arteries. Disc levels: C2-C3: Mild right and moderate left facet arthrosis. Mild left foraminal narrowing. Small broad-based posterior disc bulge with posterior ligamentous thickening. Mild spinal canal stenosis. C3-C4: Broad-based posterior disc bulge/osteophyte complex. Posterior ligamentous thickening. Mild spinal canal and bilateral foraminal stenosis. Mild right facet arthrosis. C4-C5: Broad-based posterior disc bulge/osteophyte complex. Mild spinal canal stenosis. Moderate right and mild left foraminal stenosis. Fusion of the left facets. Mild right facet arthrosis. C5-C6: Broad-based posterior disc bulge/osteophyte complex. Mild narrowing of the spinal canal. Mild left foraminal stenosis. Moderate left facet arthrosis. C6-C7: Fusion of the facet joints. Foramina are patent. Small posterior central osteophyte mildly narrows the canal. C7-T1: No disc protrusion, spinal canal stenosis, or neural foraminal stenosis. IMPRESSION: 1. No cervical spine fracture. 2. Multilevel degenerative changes of the cervical spine as above. Electronically authenticated by: CARLTON CARPENTER Date: 2022-05-05 16:29 Normal [facility] CT HEAD WO CONon 05-05-2022 CT HEAD WO CON EXAMINATION: CT HEAD WO CON HISTORY: WEAKNESS COMPARISON: CT head 01/05/2020 TECHNIQUE: CT imaging of the head was performed without IV contrast. Dose reduction techniques were achieved by using automated exposure control and/or adjustment of mA and/or kV according to patient size and/or use of iterative reconstruction technique. FINDINGS: No acute hemorrhage or extra-axial fluid collection. No mass effect or midline shift. Moderate parenchymal volume loss with commensurate enlargement of the sulci, cisterns and ventricles. Patchy areas of subcortical and periventricular white matter hypodensity consistent with sequela of chronic microvascular ischemic changes. Chronic encephalomalacia changes from prior infarcts of the left occipital lobe, left parietal lobe, left cerebellum and left caudate nucleus. Garcia-white matter differentiation is otherwise maintained. Nasal sinuses and mastoid air cells are clear. Postoperative changes of both globes. Orbits are otherwise unremarkable. Peripheral vascular calcifications. Osseous structures are unremarkable. IMPRESSION: No acute intracranial findings. Parenchymal volume loss and sequela of chronic microvascular angiopathy. 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 Electronically authenticated by: PAT REYNOSO Date: 2022-05-05 15:58 [facility] CTA CHEST WO W CONon 022 CTA CHEST WO W CON EXAMINATION: CTA CHEST WO W CON HISTORY: WEAKNESS headache, generalized weakness from falls x3 days. COMPARISON: None. TECHNIQUE: CT angiography of the pulmonary arteries following the administration of intravenous contrast. Coronal and sagittal MIP (maximum intensity projection) images were performed. Dose reduction techniques were achieved by using automated exposure control and/or adjustment of mA and/or kV according to patient size and/or use of iterative reconstruction technique. FINDINGS: Soft tissue window: Left thyroid nodule measuring 1.4 cm. Mediastinum is in midline position. No evidence of significant lymphadenopathy by CT size criteria in the mediastinum, hilar regions and axillary regions bilaterally. Thoracic aorta is of normal caliber without evidence of aneurysmal dilatation. There is homogeneous enhancement of aortic lumen. Aortic atherosclerotic calcifications noted. 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 Main pulmonary artery is of normal caliber and normal homogeneous density. The contrast bolus density in the main pulmonary artery is adequate for evaluation of pulmonary emboli. There is no evidence of filling defects to suggest pulmonary emboli to the segmental pulmonary arterial level bilaterally. Moderate cardiomegaly without pericardial effusion. Postsurgical changes of CABG. Vascular coronary calcifications. Prior median sternotomy. No evidence of pleural effusion. Esophagus is unremarkable. Cholelithiasis without definite evidence of acute cholecystitis on limited images. Otherwise the visualized upper abdomen is within normal limits. Soft tissues of the chest wall are unremarkable. Lung windows: Trachea and bilateral major pulmonary bronchi are patent without evidence of endobronchial lesions. The lungs are clear without evidence of pulmonary consolidations. No evidence of pneumothorax. Bone windows: no evidence of suspicious lytic or sclerotic osseous lesions. Impression: 1. No evidence of acute aortic pathology. Atherosclerotic aortic vascular calcifications. 2. No evidence of pulmonary embolus through the segmental pulmonary artery level. 3. No focal consolidation. Electronically authenticated by: RICHARD TO Date: 2022-05-05 18:39 Normal [facility] CULTURE BLOODon 05-05-2022 Microscopic examination of blood, culture Culture Observations: NO GROWTH AT 5 DAYS. [facility] Comment on above: Performed By: #### C MP, BNP #### [facility] [address], [place] [address] Dr. Alma Prescott [facility]25 SARS-CoV-2 (COVID-19) RNA ANGELLA+probe Ql (Unsp spec) Detected Critically abnormal NOT DETECTED [facility] Comment on above: Result Comment: This test is not yet approved or cleared by the [place] FDA. When there are no FDA-approved or cleared tests available, and other criteria are met, FDA can make tests available under an emergency access mechanism called an Emergency Use Authorization (EUA). The EUA for this test is supported by the Clinical Program Consultant of Health and Human Service's declaration that circumstances exist to justify the emergency use of in vitro diagnostics for the detection and/or diagnosis of the virus that causes COVID-19. This EUA will remain in effect for the duration of the COVID-19 declaration justifying emergency of IVDs, unless it is terminated or revoked by the FDA (after which the test may no longer be used). Performed By: #### C MP, BNP #### [facility] [address], [place] [address] Dr. Alma Prescott D-DIMERon 05-05-2022 D-DIMER 2.80 mg/L FEU Critically high <=0.59 [facility] Comment on above: Performed By: #### C MP, BNP #### [facility] [address], [place] [address] Dr. Alma Prescott D-DIMER COMMENTS SEE BELOW Normal [facility] Comment on above: Result Comment: Incr eases in D-Dimer concentration observed with thromboembolic events can be variable due to localization, size, and age of the thrombus. Therefore, a thromboembolic event cannot be diagnosed with certainty on the basis of the reference range. D-Dimers may also be elevated for a variety of disorders including: advanced age, , coronary disease, cancer, liver disease, infection, inflammation, hematoma, DIC, trauma, post-surgery, diabetes, thrombolytic or anticoagulant therapy, stress, and generalized hospitalization. Performed By: #### C MP, BNP #### [facility] [address] [place] [address] Dr. Alma Prescott INFLUENZA A AND B AGon 05-05 [facility] SEE BELOW Normal [facility] Comment on above: Result Comment: Nega tive for Flu A protein angiten. Infection due to Flu A cannot be ruled out. Flu A angiten in the sample may be below the detection limit of the test. Performed By: #### C MP, BNP, CRP #### [facility] [address] [place] [address] Dr. Alma Prescott [facility] Normal [facility] Comment on above: Result Comment: Nega tive for Flu B protein antigen. Infection due to Flu B cannot be ruled out. Flu B antigen in the sample may be below the detection limit of the test. Performed By: #### C MP, BNP, CRP #### [facility] [address] [place] [address] Dr. Alma Prescott INFLUENZA A AG Negative Normal NEGATIVE SEE COMMENT [facility] Comment on above: Performed By: #### C MP, BNP, CRP #### [facility] [address] [place] [address] Dr. Alma Prescott INFLUENZA B AG Negative Normal NEGATIVE SEE COMMENT [facility] Comment on above: Performed By: #### C MP, BNP, CRP #### [facility] [address] [place] [address] Dr. Alma Prescott INTERNAL CONTROLS Within Normal Limits Normal Wi thin Normal Limits [facility] Comment on above: Performed By: #### C MP, BNP, CRP #### [facility] [address] [place] [address] Dr. Alma Prescott LACTATE/LACTIC ACIDon 2021 Lactate [Moles/Vol] 0.5 mmol/L Normal 0.4-1.9 [facility] Comment on above: Performed By: #### A ST, LIPID, ALT, BMP #### [facility] [address] [place] [address] [address] Alma Prescott POINT OF CARE GLUCOSEon 04-25 Glucose [Mass/Vol] 307 mg/dL Critically high 74-106 [facility] Comment on above: Performed By: #### A ST, LIPID, ALT, BMP #### [facility] [address] [place] [address] [address] Alma Prescott PROF 14(COMP METB)on 022 Albumin [Mass/Vol] 2.9 g/dL Critically low 3.4-5.0 [facility] Comment on above: Performed By: #### A ST, LIPID, ALT, BMP #### [facility] [address] [place] [address] [address] Alma Prescott Albumin/Globulin [Mass ratio] 0.6 {ratio} Normal [facility] Comment on above: Performed By: #### A ST, LIPID, ALT, BMP #### [facility] [address] [place] [address] [address] Alma Prescott ALP [Catalytic activity/Vol] 76 U/L Normal 46-116 [facility] Comment on above: Performed By: #### A ST, LIPID, ALT, BMP #### [facility] [address] [place] [address] [address] Alma Prescott ALT [Catalytic activity/Vol] 31 U/L Normal 16-63 [facility] Comment on above: Performed By: #### A ST, LIPID, ALT, BMP #### [facility] [address] [place] [address] [address] Alma Prescott Anion gap [Moles/Vol] 12.7 mmol/L Normal [facility] Comment on above: Performed By: #### A ST, LIPID, ALT, BMP #### [facility] [address] [place] [address] Dr. Alma Prescott AST [Catalytic activity/Vol] 49 U/L Critically high 15-37 [facility] Comment on above: Performed By: #### A ST, LIPID, ALT, BMP #### [facility] [address] [place] [address] Dr. Alma Prescott Bilirubin [Mass/Vol] 0.2 mg/dL Normal 0.2-1.0 [facility] Comment on above: Performed By: #### A ST, LIPID, ALT, BMP #### [facility] [address] [address] [address] Alma Prescott Calcium [Mass/Vol] 9.3 mg/dL Normal 8.5-10.1 [facility] Comment on above: Performed By: #### A ST, LIPID, ALT, BMP #### [facility] [address] [address] [address] Alma Prescott Chloride [Moles/Vol] 97 mmol/L Critically low 98-107 [facility] Comment on above: Performed By: #### A ST, LIPID, ALT, BMP #### [facility] [address] [place] [address] [address] Alma Prescott CO2 [Moles/Vol] 26.4 mmol/L Normal 21.0-32.0 [facility] Comment on above: Performed By: #### A ST, LIPID, ALT, BMP #### [facility] [address] [address] [address] Alma Prescott Creatinine [Mass/Vol] 2.06 mg/dL Critically high 0.70-1.30 [facility] Comment on above: Performed By: #### A ST, LIPID, ALT, BMP #### [facility] [address] [place] [address] [address] Alma Prescott EGFR-AF TUVALUAN 37 mL/min/1.73m2 Critically low >=60 [facility] Comment on above: Performed By: #### A ST, LIPID, ALT, BMP #### [facility] [address] [place] [address] [address] Alma Prescott EGFR-NON AF TUVALUAN 31 mL/min/1.73m2 Critically low >=60 [facility] Comment on above: Performed By: #### A ST, LIPID, ALT, BMP #### [facility] [address] [address] [address] Alma Prescott Globulin (S) [Mass/Vol] 4.5 g/dL Normal [facility] Comment on above: Performed By: #### A ST, LIPID, ALT, BMP #### [facility] [address] [place] [address] [address] Alma Prescott Glucose [Mass/Vol] 367 mg/dL Critically high 74-106 [facility] Comment on above: Performed By: #### A ST, LIPID, ALT, BMP #### [facility] [address] [place] [address] Dr. Alma Prescott Potassium [Moles/Vol] 4.1 mmol/L Normal 3.5-5.1 [facility] Comment on above: Performed By: #### A ST, LIPID, ALT, BMP #### [facility] [address] [place] [address] Dr. Alma Prescott Protein [Mass/Vol] 7.4 g/dL Normal 6.4-8.2 [facility] Comment on above: Performed By: #### A ST, LIPID, ALT, BMP #### [facility] [address] [place] [address] Dr. Alma Prescott Sodium [Moles/Vol] 132 mmol/L Critically low 136-145 [facility] Comment on above: Performed By: #### A ST, LIPID, ALT, BMP #### [facility] [address] [place] [address] Dr. Alma Prescott Urea nitrogen [Mass/Vol] 23.0 mg/dL Critically high 7.0-18.0 [facility] Comment on above: Performed By: #### A ST, LIPID, ALT, BMP #### [facility] [address] [place] [address] Dr. Alma Prescott Urea nitrogen/Creatinin e [Mass ratio] 11.2 mg/mg Normal [facility] Comment on above: Performed By: #### A ST, LIPID, ALT, BMP #### [facility] [address] [place] [address] Dr. Alma Prescott PROTIMEon 05-05-2022 INR Coag (PPP) [Relative time] 1.00 {INR} [facility] Comment on above: Performed By: #### A ST, LIPID, ALT, BMP #### [facility] [address] [place] [address] [address] Alma Prescott INR GUIDELINES SEE BELOW Normal [facility] Comment on above: Result Comment: IVAN RED INR: 2.0 - 3.0 CONDITIONS NOT LISTED BELOW 2.5 - 3.5 FOR PROSTHETIC HEART VALVE REPLACEMENT 2.5 - 3.5 RECURRENT THROMBOSIS Performed By: #### A ST, LIPID, ALT, BMP #### [facility] [address] [place] [address] [address] Alma Prescott PT Coag (PPP) [Time] 10.8 s Normal 9.0-11.6 [facility] Comment on above: Performed By: #### A ST, LIPID, ALT, BMP #### [facility] [address] [address] [address] Alma Prescott PTTon 05-05-2022 aPTT Coag (Bld) [Time] 29.0 s Normal 22.3-36.2 [facility] Comment on above: Performed By: #### A ST, LIPID, ALT, BMP #### [facility] [address] [address] [address] Alma Prescott TROPONIN, HIGH SENSITIVITYon 05-05-2022 HSTROP 75.3 pg/mL Normal 4.0-76.1 [facility] Comment on above: Result Comment: CUT- OFF POINTS HAVE BEEN ESTABLISHED BASED ON THE FOURTH UNIVERSAL DEFINITIONS OF MYOCARDIAL INFARCTION. THE UPPER REFERENCE LIMIT (URL) OF TROPONIN, DEFINED THE 99TH PERCENTILE OF cTnI DISTRIBUTION IN A REFERENCE POPULATION, HAS BEEN CONFIRMED THE DECISION THRESHOLD FOR IA DIAGNOSIS. Performed By: #### A ST, LIPID, ALT, BMP #### [facility] [address] [place] [address] [address] Alma Prescott XR CHEST 1 Von 05-05-2022 XR CHEST 1 V EXAM: XR CHEST 1 V 05/05/2022 COMPARISON STUDY: AP chest 11/27/2021. FINDINGS: Upright AP chest image was obtained. Patient appears somewhat obese. HISTORY: COUGH IMPRESSION: 1. 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 Surgical clips about the left lower neck are identified. 2. Heart size is mildly prominent. 3. No dense consolidation, effusion, edema, failure or pneumothorax 4. There are subacute/chronic healing right eighth and ninth rib fractures noted. 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 Electronically authenticated by: ADAPHYLLIS WARDH Date: 2022-05-05 16:19 Normal [facility] BNPon 11-27-2021 Natriuretic peptide B (Bld) [Mass/Vol] 461.0 pg/mL Normal <=1,800.0 [facility] Comment on above: Performed By: #### A ST, LIPID, ALT, BMP #### [facility] [address] [place] [address] Dr. Alma Prescott CBC AUTO DIFFon 11-27-2021 BASO # 0.1 103/ul Normal 0.0-0.1 [facility] Comment on above: Performed By: #### C MP, BNP, CRP #### [facility] [address] [place] [address] Dr. Alma Prescott Basophils/100 WBC (Bld) 0.8 % Normal 0.2-2.0 [facility] Comment on above: Performed By: #### C MP, BNP, CRP #### [facility] [address] [place] [address] Dr. Alma Prescott EO # 0.4 103/ul Normal 0.0-0.7 [facility] Comment on above: Performed By: #### C MP, BNP, CRP #### [facility] [address] [place] [address] Dr. Alma Prescott Eosinophils/100 WBC (Bld) 6.2 % Normal 0.9-7.0 [facility] Comment on above: Performed By: #### C MP, BNP, CRP #### [facility] [address] [place] [address] Dr. Alma Prescott Erythrocyte distribution width (RBC) [Ratio] 14.0 % Normal 11.0-15.0 [facility] Comment on above: Performed By: #### C MP, BNP, CRP #### [facility] [address] [place] [address] Dr. Alma Prescott Hematocrit (Bld) [Volume fraction] 33.0 % Critically low 42.0-54.0 [facility] Comment on above: Performed By: #### C MP, BNP, CRP #### [facility] [address] [place] [address] Dr. Alma Prescott Hemoglobin (Bld) [Mass/Vol] 10.7 g/dL Critically low 14.0-18.0 [facility] Comment on above: Performed By: #### C MP, BNP, CRP #### [facility] [address] [place] [address] Dr. Alma Prescott IG # 0.02 10e3/ul Normal 0.00-0.03 [facility] Comment on above: Performed By: #### C MP, BNP, CRP #### [facility] [address] [place] [address] Dr. Alma Prescott IG % 0.3 % Normal 0.0-0.5 [facility] Comment on above: Performed By: #### C MP, BNP, CRP #### [facility] [address] [place] [address] Dr. Alma Prescott LYMPH # 1.6 103/ul Normal 1.2-3.8 [facility] Comment on above: Performed By: #### C MP, BNP, CRP #### [facility] [address] [place] [address] Dr. Alma Prescott Lymphocytes/100 WBC (Bld) 25.5 % Normal 20.5-60.0 [facility] Comment on above: Performed By: #### C MP, BNP, CRP #### [facility] [address] [place] [address] Dr. Alma Prescott MANUAL DIFF REQ NO Normal [facility] Comment on above: Performed By: #### C MP, BNP, CRP #### [facility] [address] [place] [address] Dr. Alma Prescott MCH (RBC) [Entitic mass] 29.5 pg Normal 25.9-34.0 [facility] Comment on above: Performed By: #### C MP, BNP, CRP #### [facility] [address] [place] [address] Dr. Alma Prescott MCHC (RBC) [Mass/Vol] 32.4 g/dL Normal 29.9-35.2 [facility] Comment on above: Performed By: #### C MP, BNP, CRP #### [facility] [address] [place] [address] Dr. Alma Prescott MCV (RBC) [Entitic vol] 90.9 fL Normal 80.0-94.0 [facility] Comment on above: Performed By: #### C MP, BNP, CRP #### [facility] [address] [place] [address] Dr. Alma Prescott MONO # 0.4 103/ul Normal 0.3-0.8 [facility] Comment on above: Performed By: #### C MP, BNP, CRP #### [facility] [address] [place] [address] Dr. Alma Prescott Monocytes/100 WBC (Bld) 6.8 % Normal 1.7-12.0 [facility] Comment on above: Performed By: #### C MP, BNP, CRP #### [facility] [address] [place] [address] Dr. Alma Prescott NEUT # 3.8 103/ul Normal 1.4-6.5 [facility] Comment on above: Performed By: #### C MP, BNP, CRP #### [facility] [address] [place] [address] Dr. Alma Prescott Neutrophils/100 WBC (Bld) 60.4 % Normal 43.0-75.0 [facility] Comment on above: Performed By: #### C MP, BNP, CRP #### [facility] [address] [place] [address] Dr. Alma Prescott Platelet mean volume (Bld) [Entitic vol] 9.5 fL Normal 9.5-13.5 [facility] Comment on above: Performed By: #### C MP, BNP, CRP #### [facility] [address] [place] [address] Dr. Alma Prescott PLT 232 103/ul Normal 150-450 [facility] Comment on above: Performed By: #### C MP, BNP, CRP #### [facility] [address] [place] [address] [address] Alma Prescott RBC 3.63 106/ul Critically low 4.70-6.10 [facility] Comment on above: Performed By: #### C MP, BNP, CRP #### [facility] [address] [place] [address] [address] Alma Prescott WBC 6.3 103/ul Normal 4.0-11.0 [facility] Comment on above: Performed By: #### C MP, BNP, CRP #### [facility] [address] [address] [address] Alma Prescott PROF 14(COMP METB)on 022 Albumin [Mass/Vol] 3.3 g/dL Critically low 3.4-5.0 [facility] Comment on above: Performed By: #### A ST, LIPID, ALT, BMP #### [facility] [address] [address] [address] Alma Prescott Albumin/Globulin [Mass ratio] 0.8 {ratio} Normal [facility] Comment on above: Performed By: #### A ST, LIPID, ALT, BMP #### [facility] [address] [address] [address] Alma Prescott ALP [Catalytic activity/Vol] 71 U/L Normal 46-116 [facility] Comment on above: Performed By: #### A ST, LIPID, ALT, BMP #### [facility] [address] [address] [address] Alma Prescott ALT [Catalytic activity/Vol] 39 U/L Normal 16-63 [facility] Comment on above: Performed By: #### A ST, LIPID, ALT, BMP #### [facility] [address] [address] [address] Alma Prescott Anion gap [Moles/Vol] 11.9 mmol/L Normal [facility] Comment on above: Performed By: #### A ST, LIPID, ALT, BMP #### [facility] [address] [place] [address] Dr. Alma Prescott AST [Catalytic activity/Vol] 32 U/L Normal 15-37 [facility] Comment on above: Performed By: #### A ST, LIPID, ALT, BMP #### [facility] [address] [address] [address] Alma Prescott Bilirubin [Mass/Vol] 0.3 mg/dL Normal 0.2-1.0 [facility] Comment on above: Performed By: #### A ST, LIPID, ALT, BMP #### [facility] [address] [address] [address] Alma Prescott Calcium [Mass/Vol] 9.3 mg/dL Normal 8.5-10.1 [facility] Comment on above: Performed By: #### A ST, LIPID, ALT, BMP #### [facility] [address] [place] [address] Dr. Alma Prescott Chloride [Moles/Vol] 103 mmol/L Normal 98-107 [facility] Comment on above: Performed By: #### A ST, LIPID, ALT, BMP #### [facility] [address] [address] [address] Alma Prescott CO2 [Moles/Vol] 24.3 mmol/L Normal 21.0-32.0 [facility] Comment on above: Performed By: #### A ST, LIPID, ALT, BMP #### [facility] [address] [place] [address] Dr. Alma Prescott Creatinine [Mass/Vol] 1.63 mg/dL Critically high 0.70-1.30 [facility] Comment on above: Performed By: #### A ST, LIPID, ALT, BMP #### [facility] [address] [address] [address] Alma Prescott EGFR-AF TUVALUAN 49 mL/min/1.73m2 Critically low >=60 [facility] Comment on above: Performed By: #### A ST, LIPID, ALT, BMP #### [facility] [address] [address] [address] Alma Prescott EGFR-NON AF TUVALUAN 41 mL/min/1.73m2 Critically low >=60 [facility] Comment on above: Performed By: #### A ST, LIPID, ALT, BMP #### [facility] [address] [address] [address] Alma Prescott Globulin (S) [Mass/Vol] 3.9 g/dL Normal [facility] Comment on above: Performed By: #### A ST, LIPID, ALT, BMP #### [facility] [address] [place] [address] Dr. Alma Prescott Glucose [Mass/Vol] 116 mg/dL Critically high 74-106 [facility] Comment on above: Performed By: #### A ST, LIPID, ALT, BMP #### [facility] [address] [place] [address] Dr. Alma Prescott Potassium [Moles/Vol] 5.2 mmol/L Critically high 3.5-5.1 [facility] Comment on above: Performed By: #### A ST, LIPID, ALT, BMP #### [facility] [address] [place] [address] Dr. Alma Prescott Protein [Mass/Vol] 7.2 g/dL Normal 6.4-8.2 [facility] Comment on above: Performed By: #### A ST, LIPID, ALT, BMP #### [facility] [address] [place] [address] Dr. Alma Prescott Sodium [Moles/Vol] 134 mmol/L Critically low 136-145 [facility] Comment on above: Performed By: #### A ST, LIPID, ALT, BMP #### [facility] [address] [place] [address] Dr. Alma Prescott Urea nitrogen [Mass/Vol] 27.0 mg/dL Critically high 7.0-18.0 [facility] Comment on above: Performed By: #### A ST, LIPID, ALT, BMP #### [facility] [address] [place] [address] Dr. Alma Prescott Urea nitrogen/Creatinin e [Mass ratio] 16.6 mg/mg Normal [facility] Comment on above: Performed By: #### A ST, LIPID, ALT, BMP #### [facility] [address] [place] [address] Dr. Alma Prescott PROTIMEon 11-27-2021 INR Coag (PPP) [Relative time] 1.05 {INR} Normal [facility] Comment on above: Performed By: #### A ST, LIPID, ALT, BMP #### [facility] [address] [place] [address] Dr. Alma Presctot INR GUIDELINES SEE BELOW Normal [facility] Comment on above: Result Comment: IVAN RED INR: 2.0 - 3.0 CONDITIONS NOT LISTED BELOW 2.5 - 3.5 FOR PROSTHETIC HEART VALVE REPLACEMENT 2.5 - 3.5 RECURRENT THROMBOSIS Performed By: #### A ST, LIPID, ALT, BMP #### [facility] [address] [place] [address] Dr. Alma Prescott PT Coag (PPP) [Time] 11.3 s Normal 9.0-11.6 [facility] Comment on above: Performed By: #### A ST, LIPID, ALT, BMP #### [facility] [address] [place] [address] Dr. Alma Prescott PTTon 11-27-2021 aPTT Coag (Bld) [Time] 30.3 s Normal 22.3-36.2 [facility] Comment on above: Performed By: #### A ST, LIPID, ALT, BMP #### [facility] [address] [place] [address] Dr. Alma Prescott TROPONIN, HIGH SENSITIVITYon 11-27-2021 HSTROP 18.3 pg/mL Normal 4.0-76.1 [facility] Comment on above: Result Comment: CUT- OFF POINTS HAVE BEEN ESTABLISHED BASED ON THE FOURTH UNIVERSAL DEFINITIONS OF MYOCARDIAL INFARCTION. THE UPPER REFERENCE LIMIT (URL) OF TROPONIN, DEFINED THE 99TH PERCENTILE OF cTnI DISTRIBUTION IN A REFERENCE POPULATION, HAS BEEN CONFIRMED THE DECISION THRESHOLD FOR IA DIAGNOSIS. Performed By: #### A ST, LIPID, ALT, BMP #### [facility] [address] [place] [address] Dr. Alma Prescott XR CHEST 1 Von 11-27-2021 XR CHEST 1 V EXAMINATION: XR CHES T 1 V HISTORY: Hypertensive disorder COMPARISON: XR chest 11/16/2021 FINDINGS: LUNGS: Underexpanded lungs without appreciable infiltrates or mass. VASCULATURE: No increased pulmonary vasculature. PLEURA: No pneumothorax, effusion, or pleural thickening. CARDIAC: No cardiomegaly or cardiac silhouette abnormality. MEDIASTINUM: No visible mass or adenopathy. BONES: No fracture or visible bone lesion. OTHER: Prior sternotomy. IMPRESSION: 1. No acute cardiopulmonary process. Stable chest. Electronically authenticated by: STEVO DAVID Date: 2021-11-27 16:06 Normal [facility] CBC AUTO DIFFon 11-19-2021 BASO # 0.1 103/ul Normal 0.0-0.1 [facility] Comment on above: Performed By: #### A ST, LIPID, ALT, BMP #### [facility] [address] [place] [address] Dr. Alma Prescott Basophils/100 WBC (Bld) 0.6 % Normal 0.2-2.0 [facility] Comment on above: Performed By: #### A ST, LIPID, ALT, BMP #### [facility] [address] [address] [address] Alma Prescott EO # 0.4 103/ul Normal 0.0-0.7 [facility] Comment on above: Performed By: #### A ST, LIPID, ALT, BMP #### [facility] [address] [address] [address] Alma Prescott Eosinophils/100 WBC (Bld) 4.8 % Normal 0.9-7.0 [facility] Comment on above: Performed By: #### A ST, LIPID, ALT, BMP #### [facility] [address] [address] [address] Alma Prescott Erythrocyte distribution width (RBC) [Ratio] 14.6 % Normal 11.0-15.0 [facility] Comment on above: Performed By: #### A ST, LIPID, ALT, BMP #### [facility] [address] [address] [address] Alma Prescott Hematocrit (Bld) [Volume fraction] 34.3 % Critically low 42.0-54.0 [facility] Comment on above: Performed By: #### A ST, LIPID, ALT, BMP #### [facility] [address] [place] [address] Dr. Alma Prescott Hemoglobin (Bld) [Mass/Vol] 11.1 g/dL Critically low 14.0-18.0 [facility] Comment on above: Performed By: #### A ST, LIPID, ALT, BMP #### [facility] [address] [place] [address] Dr. Alma Prescott IG # 0.02 10e3/ul Normal 0.00-0.03 [facility] Comment on above: Performed By: #### A ST, LIPID, ALT, BMP #### [facility] [address] [place] [address] Dr. Alma Prescott IG % 0.2 % Normal 0.0-0.5 [facility] Comment on above: Performed By: #### A ST, LIPID, ALT, BMP #### [facility] [address] [place] [address] Dr. Alma Prescott LYMPH # 1.5 103/ul Normal 1.2-3.8 [facility] Comment on above: Performed By: #### A ST, LIPID, ALT, BMP #### [facility] [address] [place] [address] Dr. Alma Prescott Lymphocytes/100 WBC (Bld) 19.0 % Critically low 20.5-60.0 [facility] Comment on above: Performed By: #### A ST, LIPID, ALT, BMP #### [facility] [address] [place] [address] Dr. Alma Prescott MANUAL DIFF REQ NO Normal [facility] Comment on above: Performed By: #### A ST, LIPID, ALT, BMP #### [facility] [address] [place] [address] Dr. Alma Prescott MCH (RBC) [Entitic mass] 29.8 pg Normal 25.9-34.0 [facility] Comment on above: Performed By: #### A ST, LIPID, ALT, BMP #### [facility] [address] [place] [address] Dr. Alma Prescott MCHC (RBC) [Mass/Vol] 32.4 g/dL Normal 29.9-35.2 [facility] Comment on above: Performed By: #### A ST, LIPID, ALT, BMP #### [facility] [address] [address] [address] Alma Prescott MCV (RBC) [Entitic vol] 92.0 fL Normal 80.0-94.0 [facility] Comment on above: Performed By: #### A ST, LIPID, ALT, BMP #### [facility] [address] [address] [address] Alma Prescott MONO # 0.8 103/ul Normal 0.3-0.8 [facility] Comment on above: Performed By: #### A ST, LIPID, ALT, BMP #### [facility] [address] [place] [address] Dr. Alma Prescott Monocytes/100 WBC (Bld) 10.2 % Normal 1.7-12.0 [facility] Comment on above: Performed By: #### A ST, LIPID, ALT, BMP #### [facility] [address] [address] [address] Alma Prescott NEUT # 5.2 103/ul Normal 1.4-6.5 [facility] Comment on above: Performed By: #### A ST, LIPID, ALT, BMP #### [facility] [address] [address] [address] Alma Prescott Neutrophils/100 WBC (Bld) 65.2 % Normal 43.0-75.0 [facility] Comment on above: Performed By: #### A ST, LIPID, ALT, BMP #### [facility] [address] [address] [address] Alma Prescott Platelet mean volume (Bld) [Entitic vol] 9.7 fL Normal 9.5-13.5 [facility] Comment on above: Performed By: #### A ST, LIPID, ALT, BMP #### [facility] [address] [address] [address] Alma Prescott PLT 227 103/ul Normal 150-450 [facility] Comment on above: Performed By: #### A ST, LIPID, ALT, BMP #### [facility] [address] [place], [place] [address] Dr. Alma Prescott RBC 3.73 106/ul Critically low 4.70-6.10 [facility] Comment on above: Performed By: #### A ST, LIPID, ALT, BMP #### [facility] [address] [place], [place] [address] Dr. Alma Prescott WBC 8.1 103/ul Normal 4.0-11.0 [facility] Comment on above: Performed By: #### A ST, LIPID, ALT, BMP #### [facility] [address] [place], [place] [address] Dr. Alma Prescott ECHO LIMITED STUDYon 022 ECHO LIMITED STUDY Patient: RACHEL CASANOVA Exam Date: 11/19/2021 : 1935 Gender:M Ordering : DR JAIME RUELAS . Admission #: [id number] Family : DR SHOLA LYNN . Order #: [id number] CLICK HERE TO VIEW EXAM ECHOCARDIOGRAM REPORT PROCEDURE: CARDIO PULMONARY ECHO LIMITED STUDY INDICATIONS: Bilateral lower leg edema COMPARISON: None. DESCRIPTION: Limited ECHOCARDIOGRAM Real-time transthoracic echocardiography with 2D and M-mode performed. QUALITY: Technical quality was good. LEFT VENTRICLE: Normal chamber size. Moderate concentric left ventricular hypertrophy. Normal systolic function. LV EF: Normal left ventricular ejection fraction, (65%). DIASTOLIC: ATRIAL SEPTUM: LEFT ATRIUM: Normal chamber size. RIGHT ATRIUM: Mild dilatation. RIGHT VENTRICLE: Normal chamber size. Normal right ventricular systolic function. TRICUSPID VALVE: Normal mobility and thickness. MITRAL VALVE: Normal mobility and thickness. Mild mitral annular calcification. AORTIC VALVE: Normal trileaflet appearance. Normal leaflet mobility. AORTIC ROOT: Mildly dilated. PULMONIC VALVE: Grossly normal. PERICARDIUM: No evidence of pericardial effusion. IVC: Not well visualized. PLEURA: CONCLUSION: 1. Normal ventricular systolic function. LVEF is 65%. 2. Moderate concentric left ventricular hypertrophy. 3. No pericardial effusion. 4. Limited study performed with no Doppler interrogation. Adult Echocardiography Procedure Report Left Ventricle LVEDD (3.7 - 5.6 cm): 3.62 cm LVESD (2.2 - 4.0 cm): 2.80 cm LVIVS thickness (0.6 - 1.2 cm): 1.64 cm LVPW thickness (0.5 - 1.0 cm): 1.40 cm LVOT Area (cm2): 3.46 cm2 LVOT Diameter 2.10 cm Left Ventricular Ejection Fraction: 65 % Left Atrium LA Volume Index (2D A2C): 16.40 ml/m2 Left Atrium Systolic Dimension: 3.60 cm Left Atrium Systolic Area(A2C): 14.80 cm2 Left Atrium Systolic Area(A4C): 18.70 cm2 Left Atrium Systolic Volume(A2C): 49994 mm3 Left Atrium Systolic Volume(A4C): 28335 mm3 Mitral Valve Right Ventricle RV Internal Diastolic Dimension: 3.80 cm Aorta AO Root Diam: 4.00 cm Aortic Valve Tricuspid Valve Pulmonic Valve Right Atrium Dictated by: Benjamin Taylor M.D. on 11/19/2021 at 18:03 Approved by: Benjamin Taylor M.D. on 11/19/2021 at 18:07 Normal [facility] PROF 14(COMP METB)on 11-19- 022 Albumin [Mass/Vol] 3.0 g/dL Critically low 3.4-5.0 [facility] Comment on above: Performed By: #### C BC #### [facility] [address] [place] [address] Dr. Alma Prescott Albumin/Globulin [Mass ratio] 0.8 {ratio} Normal [facility] Comment on above: Performed By: #### C BC #### [facility] [address] [place] [address] Dr. Alma Prescott ALP [Catalytic activity/Vol] 64 U/L Normal 46-116 [facility] Comment on above: Performed By: #### C BC #### [facility] [address] [place] [address] Dr. Alma Prescott ALT [Catalytic activity/Vol] 35 U/L Normal 16-63 [facility] Comment on above: Performed By: #### C BC #### [facility] [address] [place] [address] Dr. Alma Prescott Anion gap [Moles/Vol] 13.2 mmol/L Normal [facility] Comment on above: Performed By: #### C BC #### [facility] [address] [place] [address] Dr. Alma Prescott AST [Catalytic activity/Vol] 31 U/L Normal 15-37 [facility] Comment on above: Performed By: #### C BC #### [facility] [address] [address] [address] Alma Prescott Bilirubin [Mass/Vol] 0.3 mg/dL Normal 0.2-1.0 [facility] Comment on above: Performed By: #### C BC #### [facility] [address] [address] [address] Alma Prescott Calcium [Mass/Vol] 8.6 mg/dL Normal 8.5-10.1 [facility] Comment on above: Performed By: #### C BC #### [facility] [address] [place] [address] Dr. Alma Prescott Chloride [Moles/Vol] 100 mmol/L Normal 98-107 [facility] Comment on above: Performed By: #### C BC #### [facility] [address] [address] [address] Alma Prescott CO2 [Moles/Vol] 26.3 mmol/L Normal 21.0-32.0 [facility] Comment on above: Performed By: #### C BC #### [facility] [address] [address] [address] Alma Prescott Creatinine [Mass/Vol] 1.91 mg/dL Critically high 0.70-1.30 [facility] Comment on above: Performed By: #### C BC #### [facility] [address] [address] [address] Alma Prescott EGFR-AF TUVALUAN 41 mL/min/1.73m2 Critically low >=60 [facility] Comment on above: Performed By: #### C BC #### [facility] [address] [address] [address] Alma Prescott EGFR-NON AF TUVALUAN 34 mL/min/1.73m2 Critically low >=60 [facility] Comment on above: Performed By: #### C BC #### [facility] [address] [address] [address] Alma Prescott Globulin (S) [Mass/Vol] 3.6 g/dL Normal [facility] Comment on above: Performed By: #### C BC #### [facility] [address] [address] [address] Alma Prescott Glucose [Mass/Vol] 138 mg/dL Critically high 74-106 [facility] Comment on above: Performed By: #### C BC #### [facility] [address] [address] [address] Alma Prescott Potassium [Moles/Vol] 4.5 mmol/L Normal 3.5-5.1 [facility] Comment on above: Performed By: #### C BC #### [facility] [address] [address] [address] Alma Prescott Protein [Mass/Vol] 6.6 g/dL Normal 6.4-8.2 [facility] Comment on above: Performed By: #### C BC #### [facility] [address] [address] [address] Alma Prescott Sodium [Moles/Vol] 135 mmol/L Critically low 136-145 [facility] Comment on above: Performed By: #### C BC #### [facility] [address] [address] [address] Alma Prescott Urea nitrogen [Mass/Vol] 23.0 mg/dL Critically high 7.0-18.0 [facility] Comment on above: Performed By: #### C BC #### [facility] [address] [address] [address] Alma Prescott Urea nitrogen/Creatinin e [Mass ratio] 12.0 mg/mg Normal [facility] Comment on above: Performed By: #### C BC #### [facility] [address] [place] [address] Dr. Alma Prescott CBC AUTO DIFFon 11-18-2021 BASO # 0.1 103/ul Normal 0.0-0.1 [facility] Comment on above: Performed By: #### A ST, LIPID, ALT, BMP #### [facility] [address] [place] [address] Dr. Alma Prescott Basophils/100 WBC (Bld) 1.0 % Normal 0.2-2.0 [facility] Comment on above: Performed By: #### A ST, LIPID, ALT, BMP #### [facility] [address] [place] [address] Dr. Alma Prescott EO # 0.4 103/ul Normal 0.0-0.7 [facility] Comment on above: Performed By: #### A ST, LIPID, ALT, BMP #### [facility] [address] [place] [address] Dr. Alma Prescott Eosinophils/100 WBC (Bld) 5.3 % Normal 0.9-7.0 [facility] Comment on above: Performed By: #### A ST, LIPID, ALT, BMP #### [facility] [address] [place] [address] Dr. Alma Prescott Erythrocyte distribution width (RBC) [Ratio] 14.6 % Normal 11.0-15.0 [facility] Comment on above: Performed By: #### A ST, LIPID, ALT, BMP #### [facility] [address] [place] [address] Dr. Alma Prescott Hematocrit (Bld) [Volume fraction] 33.3 % Critically low 42.0-54.0 [facility] Comment on above: Performed By: #### A ST, LIPID, ALT, BMP #### [facility] [address] [place] [address] Dr. Alma Prescott Hemoglobin (Bld) [Mass/Vol] 10.7 g/dL Critically low 14.0-18.0 [facility] Comment on above: Performed By: #### A ST, LIPID, ALT, BMP #### [facility] [address] [place] [address] Dr. Alma Prescott IG # 0.03 10e3/ul Normal 0.00-0.03 [facility] Comment on above: Performed By: #### A ST, LIPID, ALT, BMP #### [facility] [address] [place] [address] Dr. Alma Prescott IG % 0.4 % Normal 0.0-0.5 [facility] Comment on above: Performed By: #### A ST, LIPID, ALT, BMP #### [facility] [address] [place] [address] Dr. Alma Prescott LYMPH # 1.5 103/ul Normal 1.2-3.8 [facility] Comment on above: Performed By: #### A ST, LIPID, ALT, BMP #### [facility] [address] [place] [address] Dr. Alma Prescott Lymphocytes/100 WBC (Bld) 21.1 % Normal 20.5-60.0 [facility] Comment on above: Performed By: #### A ST, LIPID, ALT, BMP #### [facility] [address] [place] [address] Dr. Alma Prescott MANUAL DIFF REQ NO Normal [facility] Comment on above: Performed By: #### A ST, LIPID, ALT, BMP #### [facility] [address] [place] [address] Dr. Alma Prescott MCH (RBC) [Entitic mass] 29.6 pg Normal 25.9-34.0 [facility] Comment on above: Performed By: #### A ST, LIPID, ALT, BMP #### [facility] [address] [place] [address] Dr. Alma Prescott MCHC (RBC) [Mass/Vol] 32.1 g/dL Normal 29.9-35.2 [facility] Comment on above: Performed By: #### A ST, LIPID, ALT, BMP #### [facility] [address] [place] [address] Dr. Alma Prescott MCV (RBC) [Entitic vol] 92.0 fL Normal 80.0-94.0 [facility] Comment on above: Performed By: #### A ST, LIPID, ALT, BMP #### [facility] [address] [place] [address] Dr. Alma Prescott MONO # 0.8 103/ul Normal 0.3-0.8 [facility] Comment on above: Performed By: #### A ST, LIPID, ALT, BMP #### [facility] [address] [place] [address] Dr. Alma Prescott Monocytes/100 WBC (Bld) 10.8 % Normal 1.7-12.0 [facility] Comment on above: Performed By: #### A ST, LIPID, ALT, BMP #### [facility] [address] [place] [address] Dr. Alma Prescott NEUT # 4.4 103/ul Normal 1.4-6.5 [facility] Comment on above: Performed By: #### A ST, LIPID, ALT, BMP #### [facility] [address] [place] [address] Dr. Alma Prescott Neutrophils/100 WBC (Bld) 61.4 % Normal 43.0-75.0 [facility] Comment on above: Performed By: #### A ST, LIPID, ALT, BMP #### [facility] [address] [place] [address] Dr. Alma Prescott Platelet mean volume (Bld) [Entitic vol] 9.6 fL Normal 9.5-13.5 [facility] Comment on above: Performed By: #### A ST, LIPID, ALT, BMP #### [facility] [address] [place] [address] Dr. Alma Prescott PLT 224 103/ul Normal 150-450 [facility] Comment on above: Performed By: #### A ST, LIPID, ALT, BMP #### [facility] [address] [place] [address] Dr. Alma Prescott RBC 3.62 106/ul Critically low 4.70-6.10 [facility] Comment on above: Performed By: #### A ST, LIPID, ALT, BMP #### [facility] [address] [place] [address] Dr. Alma Prescott WBC 7.2 103/ul Normal 4.0-11.0 [facility] Comment on above: Performed By: #### A ST, LIPID, ALT, BMP #### [facility] [address] [address] [address] Alma Prescott PROF 14(COMP METB)on 022 Albumin [Mass/Vol] 2.8 g/dL Critically low 3.4-5.0 Th [facility] Comment on above: Performed By: #### C MP, BNP, CRP #### [facility] [address] [place] [address] Dr. Alma Prescott Albumin/Globulin [Mass ratio] 0.8 {ratio} Normal [facility] Comment on above: Performed By: #### C MP, BNP, CRP #### [facility] [address] [place] [address] Dr. Alma Prescott ALP [Catalytic activity/Vol] 61 U/L Normal 46-116 [facility] Comment on above: Performed By: #### C MP, BNP, CRP #### [facility] [address] [place] [address] Dr. Alma Prescott ALT [Catalytic activity/Vol] 29 U/L Normal 16-63 [facility] Comment on above: Performed By: #### C MP, BNP, CRP #### [facility] [address] [place] [address] Dr. Alma Prescott Anion gap [Moles/Vol] 13.9 mmol/L Normal [facility] Comment on above: Performed By: #### C MP, BNP, CRP #### [facility] [address] [place] [address] Dr. Alma Prescott AST [Catalytic activity/Vol] 22 U/L Normal 15-37 [facility] Comment on above: Performed By: #### C MP, BNP, CRP #### [facility] [address] [place] [address] Dr. Alma Prescott Bilirubin [Mass/Vol] 0.3 mg/dL Normal 0.2-1.0 [facility] Comment on above: Performed By: #### C MP, BNP, CRP #### [facility] [address] [place] [address] Dr. Alma Prescott Calcium [Mass/Vol] 8.7 mg/dL Normal 8.5-10.1 [facility] Comment on above: Performed By: #### C MP, BNP, CRP #### [facility] [address] [place] [address] Dr. Alma Prescott Chloride [Moles/Vol] 102 mmol/L Normal 98-107 [facility] Comment on above: Performed By: #### C MP, BNP, CRP #### [facility] [address] [place] [address] Dr. Alma Prescott CO2 [Moles/Vol] 25.3 mmol/L Normal 21.0-32.0 [facility] Comment on above: Performed By: #### C MP, BNP, CRP #### [facility] [address] [place] [address] Dr. Alma Prescott Creatinine [Mass/Vol] 2.12 mg/dL Critically high 0.70-1.30 [facility] Comment on above: Performed By: #### C MP, BNP, CRP #### [facility] [address] [place] [address] Dr. Alma Prescott EGFR-AF TUVALUAN 36 mL/min/1.73m2 Critically low >=60 [facility] Comment on above: Performed By: #### C MP, BNP, CRP #### [facility] [address] [place] [address] Dr. Alma Prescott EGFR-NON AF TUVALUAN 30 mL/min/1.73m2 Critically low >=60 [facility] Comment on above: Performed By: #### C MP, BNP, CRP #### [facility] [address] [place] [address] Dr. Alma Prescott Globulin (S) [Mass/Vol] 3.5 g/dL Normal [facility] Comment on above: Performed By: #### C MP, BNP, CRP #### [facility] [address] [place] [address] Dr. Alma Prescott Glucose [Mass/Vol] 156 mg/dL Critically high 74-106 [facility] Comment on above: Performed By: #### C MP, BNP, CRP #### [facility] [address] [place] [address] Dr. Alma Prescott Potassium [Moles/Vol] 4.2 mmol/L Normal 3.5-5.1 [facility] Comment on above: Performed By: #### C MP, BNP, CRP #### [facility] [address] [place] [address] Dr. Alma Prescott Protein [Mass/Vol] 6.3 g/dL Critically low 6.4-8.2 [facility] Comment on above: Performed By: #### C MP, BNP, CRP #### [facility] [address] [place] [address] Dr. Alma Prescott Sodium [Moles/Vol] 137 mmol/L Normal 136-145 [facility] Comment on above: Performed By: #### C MP, BNP, CRP #### [facility] [address] [place] [address] Dr. Alma Prescott Urea nitrogen [Mass/Vol] 23.0 mg/dL Critically high 7.0-18.0 [facility] Comment on above: Performed By: #### C MP, BNP, CRP #### [facility] [address] [place] [address] Dr. Alma Prescott Urea nitrogen/Creatinin e [Mass ratio] 10.8 mg/mg Normal [facility] Comment on above: Performed By: #### C MP, BNP, CRP #### [facility] [address] [place] [address] Dr. Alma rPescott BNPon 11-17-2021 Natriuretic peptide B (Bld) [Mass/Vol] 698.0 pg/mL Normal <=1,800.0 [facility] Comment on above: Performed By: #### C MP, BNP, CRP #### [facility] [facility] [address] [place] [address] Dr. Alma Prescott CBC AUTO DIFFon 11-17-2021 BASO # 0.1 103/ul Normal 0.0-0.1 [facility] Comment on above: Performed By: #### C BC #### [facility] [address] [place] [address] Dr. Alma Prescott Basophils/100 WBC (Bld) 0.9 % Normal 0.2-2.0 [facility] Comment on above: Performed By: #### C BC #### [facility] [address] [place] [address] Dr. Alma Prescott EO # 0.4 103/ul Normal 0.0-0.7 [facility] Comment on above: Performed By: #### C BC #### [facility] [address] [place] [address] Dr. Alma Prescott Eosinophils/100 WBC (Bld) 5.5 % Normal 0.9-7.0 [facility] Comment on above: Performed By: #### C BC #### [facility] [address] [place] [address] Dr. Alma Prescott Erythrocyte distribution width (RBC) [Ratio] 14.6 % Normal 11.0-15.0 [facility] Comment on above: Performed By: #### C BC #### [facility] [address] [place] [address] Dr. Alma Prescott Hematocrit (Bld) [Volume fraction] 33.5 % Critically low 42.0-54.0 [facility] Comment on above: Performed By: #### C BC #### [facility] [address] [place] [address] Dr. Alma Prescott Hemoglobin (Bld) [Mass/Vol] 10.6 g/dL Critically low 14.0-18.0 [facility] Comment on above: Performed By: #### C BC #### [facility] [address] [place] [address] Dr. Alma Prescott IG # 0.02 10e3/ul Normal 0.00-0.03 [facility] Comment on above: Performed By: #### C BC #### [facility] [address] [place] [address] Dr. Alma Prescott IG % 0.3 % Normal 0.0-0.5 [facility] Comment on above: Performed By: #### C BC #### [facility] [address] [place] [address] Dr. Alma Prescott LYMPH # 1.4 103/ul Normal 1.2-3.8 [facility] Comment on above: Performed By: #### C BC #### [facility] [address] [place] [address] Dr. Alma Prescott Lymphocytes/100 WBC (Bld) 21.1 % Normal 20.5-60.0 [facility] Comment on above: Performed By: #### C BC #### [facility] [address] [place] [address] Dr. Alma Prescott MANUAL DIFF REQ NO Normal [facility] Comment on above: Performed By: #### C BC #### [facility] [address] [place] [address] Dr. Alma Prescott MCH (RBC) [Entitic mass] 29.0 pg Normal 25.9-34.0 [facility] Comment on above: Performed By: #### C BC #### [facility] [address] [place] [address] Dr. Alma Prescott MCHC (RBC) [Mass/Vol] 31.6 g/dL Normal 29.9-35.2 [facility] Comment on above: Performed By: #### C BC #### [facility] [address] [place] [address] Dr. Alma Prescott MCV (RBC) [Entitic vol] 91.8 fL Normal 80.0-94.0 [facility] Comment on above: Performed By: #### C BC #### [facility] [address] [place] [address] Dr. Alma Prescott MONO # 0.7 103/ul Normal 0.3-0.8 [facility] Comment on above: Performed By: #### C BC #### [facility] [address] [place] [address] Dr. Alma Prescott Monocytes/100 WBC (Bld) 10.8 % Normal 1.7-12.0 [facility] Comment on above: Performed By: #### C BC #### [facility] [address] [place] [address] Dr. Alma Prescott NEUT # 4.0 103/ul Normal 1.4-6.5 [facility] Comment on above: Performed By: #### C BC #### [facility] [address] [address] [address] Alma Prescott Neutrophils/100 WBC (Bld) 61.4 % Normal 43.0-75.0 [facility] Comment on above: Performed By: #### C BC #### [facility] [address] [address] [address] Alma Prescott Platelet mean volume (Bld) [Entitic vol] 9.5 fL Normal 9.5-13.5 [facility] Comment on above: Performed By: #### C BC #### [facility] [address] [place] [address] Dr. Alma Prescott PLT 223 103/ul Normal 150-450 [facility] Comment on above: Performed By: #### C BC #### [facility] [address] [place] [address] Dr. Alma Prescott RBC 3.65 106/ul Critically low 4.70-6.10 [facility] Comment on above: Performed By: #### C BC #### [facility] [address] [place] [address] Dr. Alma Prescott WBC 6.6 103/ul Normal 4.0-11.0 [facility] Comment on above: Performed By: #### C BC #### [facility] [address] [place] [address] Dr. Alma Prescott CRPon 11-17-2021 CRP [Mass/Vol] mg/L Normal <=1.0 [facility] Comment on above: Performed By: #### C MP, BNP, CRP #### [facility] [address] [place] [address] Dr. Alma Prescott PROF 14(COMP METB)on 022 Albumin [Mass/Vol] 2.9 g/dL Critically low 3.4-5.0 [facility] Comment on above: Performed By: #### C MP, BNP, CRP #### [facility] [address] [place] [address] Dr. Alma Prescott Albumin/Globulin [Mass ratio] 0.8 {ratio} Normal [facility] Comment on above: Performed By: #### C MP, BNP, CRP #### [facility] [address] [address] [address] Alma Prescott ALP [Catalytic activity/Vol] 64 U/L Normal 46-116 [facility] Comment on above: Performed By: #### C MP, BNP, CRP #### [facility] [address] [place] [address] Dr. Alma Prescott ALT [Catalytic activity/Vol] 30 U/L Normal 16-63 [facility] Comment on above: Performed By: #### C MP, BNP, CRP #### [facility] [address] [place] [address] Dr. Alma Prescott Anion gap [Moles/Vol] 13.1 mmol/L Normal [facility] Comment on above: Performed By: #### C MP, BNP, CRP #### [facility] [address] [place] [address] Dr. Alma Prescott AST [Catalytic activity/Vol] 24 U/L Normal 15-37 [facility] Comment on above: Performed By: #### C MP, BNP, CRP #### [facility] [address] [place] [address] Dr. Alma Prescott Bilirubin [Mass/Vol] 0.3 mg/dL Normal 0.2-1.0 [facility] Comment on above: Performed By: #### C MP, BNP, CRP #### [facility] [address] [place] [address] Dr. Alma Prescott Calcium [Mass/Vol] 8.7 mg/dL Normal 8.5-10.1 [facility] Comment on above: Performed By: #### C MP, BNP, CRP #### [facility] [address] [place] [address] Dr. Alma Prescott Chloride [Moles/Vol] 103 mmol/L Normal 98-107 [facility] Comment on above: Performed By: #### C MP, BNP, CRP #### [facility] [address] [place] [address] Dr. Alma Prescott CO2 [Moles/Vol] 26.5 mmol/L Normal 21.0-32.0 [facility] Comment on above: Performed By: #### C MP, BNP, CRP #### [facility] [address] [place] [address] Dr. Alma Prescott Creatinine [Mass/Vol] 1.79 mg/dL Critically high 0.70-1.30 [facility] Comment on above: Performed By: #### C MP, BNP, CRP #### [facility] [address] [place] [address] Dr. Alma Prescott EGFR-AF TUVALUAN 44 mL/min/1.73m2 Critically low >=60 [facility] Comment on above: Performed By: #### C MP, BNP, CRP #### [facility] [address] [place] [address] Dr. Alma Prescott EGFR-NON AF TUVALUAN 36 mL/min/1.73m2 Critically low >=60 [facility] Comment on above: Performed By: #### C MP, BNP, CRP #### [facility] [address] [place] [address] Dr. Alma Prescott Globulin (S) [Mass/Vol] 3.7 g/dL Normal [facility] Comment on above: Performed By: #### C MP, BNP, CRP #### [facility] [address] [place] [address] Dr. Alma Prescott Glucose [Mass/Vol] 139 mg/dL Critically high 74-106 [facility] Comment on above: Performed By: #### C MP, BNP, CRP #### [facility] [address] [place] [address] Dr. Alma Prescott Potassium [Moles/Vol] 4.6 mmol/L Normal 3.5-5.1 [facility] Comment on above: Performed By: #### C MP, BNP, CRP #### [facility] [address] [place] [address] Dr. Alma Prescott Protein [Mass/Vol] 6.6 g/dL Normal 6.4-8.2 [facility] Comment on above: Performed By: #### C MP, BNP, CRP #### [facility] [address] [place] [address] Dr. Alma Prescott Sodium [Moles/Vol] 138 mmol/L Normal 136-145 [facility] Comment on above: Performed By: #### C MP, BNP, CRP #### [facility] [address] [place] [address] Dr. Alma Prescott Urea nitrogen [Mass/Vol] 21.0 mg/dL Critically high 7.0-18.0 [facility] Comment on above: Performed By: #### C MP, BNP, CRP #### [facility] [address] [place] [address] Dr. Alma Prescott Urea nitrogen/Creatinin e [Mass ratio] 11.7 mg/mg Normal [facility] Comment on above: Performed By: #### C MP, BNP, CRP #### [facility] [address] [place] [address] Dr. Alma Prescott BNPon 11-16-2021 Natriuretic peptide B (Bld) [Mass/Vol] 542.0 pg/mL Normal <=1,800.0 [facility] Comment on above: Performed By: #### A ST, LIPID, ALT, BMP #### [facility] [address] [place] [address] Dr. Alma Prescott CBC AUTO DIFFon 11-16-2021 BASO # 0.1 103/ul Normal 0.0-0.1 [facility] Comment on above: Performed By: #### C MP, BNP #### [facility] [address] [place] [address] Dr. Alma Prescott Basophils/100 WBC (Bld) 1.1 % Normal 0.2-2.0 [facility] Comment on above: Performed By: #### C MP, BNP #### [facility] [address] [place] [address] Dr. Alma Prescott EO # 0.4 103/ul Normal 0.0-0.7 [facility] Comment on above: Performed By: #### C MP, BNP #### [facility] [address] [place] [address] Dr. Alma Prescott Eosinophils/100 WBC (Bld) 5.8 % Normal 0.9-7.0 [facility] Comment on above: Performed By: #### C MP, BNP #### [facility] [address] [place] [address] Dr. Alma Prescott Erythrocyte distribution width (RBC) [Ratio] 14.6 % Normal 11.0-15.0 [facility] Comment on above: Performed By: #### C MP, BNP #### [facility] [address] [place] [address] Dr. Alma Prescott Hematocrit (Bld) [Volume fraction] 34.2 % Critically low 42.0-54.0 [facility] Comment on above: Performed By: #### C MP, BNP #### [facility] [address] [place] [address] Dr. Alma Prescott Hemoglobin (Bld) [Mass/Vol] 10.9 g/dL Critically low 14.0-18.0 [facility] Comment on above: Performed By: #### C MP, BNP #### [facility] [address] [place] [address] Dr. Alma Prescott IG # 0.02 10e3/ul Normal 0.00-0.03 [facility] Comment on above: Performed By: #### C MP, BNP #### [facility] [address] [place] [address] Dr. Alma Prescott IG % 0.3 % Normal 0.0-0.5 [facility] Comment on above: Performed By: #### C MP, BNP #### [facility] [address] [place] [address] Dr. Alma Prescott LYMPH # 1.6 103/ul Normal 1.2-3.8 [facility] Comment on above: Performed By: #### C MP, BNP #### [facility] [address] [place] [address] Dr. Alma Prescott Lymphocytes/100 WBC (Bld) 26.1 % Normal 20.5-60.0 [facility] Comment on above: Performed By: #### C MP, BNP #### [facility] [address] [place] [address] Dr. Alma Prescott MANUAL DIFF REQ NO Normal [facility] Comment on above: Performed By: #### C MP, BNP #### [facility] [address] [place] [address] Dr. Alma Prescott MCH (RBC) [Entitic mass] 29.6 pg Normal 25.9-34.0 [facility] Comment on above: Performed By: #### C MP, BNP #### [facility] [address] [place] [address] Dr. Alma Prescott MCHC (RBC) [Mass/Vol] 31.9 g/dL Normal 29.9-35.2 [facility] Comment on above: Performed By: #### C MP, BNP #### [facility] [address] [place] [address] Dr. Alma Prescott MCV (RBC) [Entitic vol] 92.9 fL Normal 80.0-94.0 [facility] Comment on above: Performed By: #### C MP, BNP #### [facility] [address] [place] [address] Dr. Alma Prescott MONO # 0.6 103/ul Normal 0.3-0.8 [facility] Comment on above: Performed By: #### C MP, BNP #### [facility] [address] [place] [address] Dr. Alma Prescott Monocytes/100 WBC (Bld) 9.5 % Normal 1.7-12.0 [facility] Comment on above: Performed By: #### C MP, BNP #### [facility] [address] [place] [address] Dr. Alma Prescott NEUT # 3.5 103/ul Normal 1.4-6.5 [facility] Comment on above: Performed By: #### C MP, BNP #### [facility] [address] [place] [address] Dr. Alma Prescott Neutrophils/100 WBC (Bld) 57.2 % Normal 43.0-75.0 [facility] Comment on above: Performed By: #### C MP, BNP #### [facility] [address] [address] [address] Alma Prescott Platelet mean volume (Bld) [Entitic vol] 9.7 fL Normal 9.5-13.5 [facility] Comment on above: Performed By: #### C MP, BNP #### [facility] [address] [address] [address] Alma Prescott PLT 209 103/ul Normal 150-450 [facility] Comment on above: Performed By: #### C MP, BNP #### [facility] [address] [address] [address] Alma Prescott RBC 3.68 106/ul Critically low 4.70-6.10 [facility] Comment on above: Performed By: #### C MP, BNP #### [facility] [address] [place] [address] Dr. Alma Prescott WBC 6.2 103/ul Normal 4.0-11.0 [facility] Comment on above: Performed By: #### C MP, BNP #### [facility] [address] [address] [address] Alma Prescott CULTURE BLOODon 11-16-2021 Microscopic examination of blood, culture Culture Observations: NO GROWTH AT 5 DAYS. Normal [facility] Comment on above: Performed By: #### C MP, BNP #### [facility] [address] [place] [address] Dr. Alma Prescott Microscopic examination of blood, culture Culture Observations: NO GROWTH AT 5 DAYS. Normal [facility] Comment on above: Performed By: #### C MP, BNP #### [facility] [address] [address] [address] Alma Prescott [facility]25 SARS-CoV-2 (COVID-19) RNA ANGELLA+probe Ql (Unsp spec) Not detected Normal NOT DETECTED [facility] Comment on above: Result Comment: When diagnostic testing is negative, the possibility of a false negative should be considered in the context of a patient's recent exposures and the presence of clinical signs and symptoms consistent with SARS-CoV-2. This test is not yet approved or cleared by the [place] FDA. When there are no FDA-approved or cleared tests available, and other criteria are met, FDA can make tests available under an emergency access mechanism called an Emergency Use Authorization (EUA). The EUA for this test is supported by the [place] of Health and Human Service's declaration that circumstances exist to justify the emergency use of in vitro diagnostics for the detection and/or diagnosis of the virus that causes COVID-19. This EUA will remain in effect for the duration of the COVID-19 declaration justifying emergency of IVDs, unless it is terminated or revoked by the FDA (after which the test may no longer be used). Performed By: #### A ST, LIPID, ALT, BMP #### [facility] [address] [place] [address] Dr. Alma Prescott ER URINE PROFILEon 2 Bilirubin Ql (U) Negative Normal NEGATIVE [facility] Comment on above: Performed By: #### A ST, LIPID, ALT, BMP #### [facility] [address] [place] [address] Dr. Alma Prescott Clarity (U) CLEAR Normal CLEAR [facility] Comment on above: Performed By: #### A ST, LIPID, ALT, BMP #### [facility] [address] [place] [address] Dr. Alma Prescott Color (U) LT. YELLOW Normal YELLOW [facility] Comment on above: Performed By: #### A ST, LIPID, ALT, BMP #### [facility] [address] [place] [address] Dr. Alma Prescott ERUAHD A micrscopic examination will be performed if indicated. Normal [facility] Comment on above: Performed By: #### A ST, LIPID, ALT, BMP #### [facility] [address] [place] [address] Dr. Alma Prescott Glucose Ql (U) Negative Normal NEGATIVE [facility] Comment on above: Performed By: #### A ST, LIPID, ALT, BMP #### [facility] [address] [place] [address] Dr. Alma Prescott Hemoglobin Ql (U) TRACE-INTACT Abnormal NEGATIVE [facility] Comment on above: Performed By: #### A ST, LIPID, ALT, BMP #### [facility] [address] [address] [address] Alma Prescott Ketones Ql (U) Negative Normal NEGATIVE [facility] Comment on above: Performed By: #### A ST, LIPID, ALT, BMP #### [facility] [address] [address] [address] Alma Prescott LEUKOCYTES Negative Normal NEGATIVE [facility] Comment on above: Performed By: #### A ST, LIPID, ALT, BMP #### [facility] [address] [address] [address] Alma Prescott Nitrite Ql (U) Negative Normal NEGATIVE [facility] Comment on above: Performed By: #### A ST, LIPID, ALT, BMP #### [facility] [address] [address] [address] Alma Prescott pH (U) 6.5 [pH] Normal 5-9 [facility] Comment on above: Performed By: #### A ST, LIPID, ALT, BMP #### [facility] [address] [address] [address] Alma Prescott Protein (U) [Mass/Vol] 100 mg/dL Abnormal NEGATIVE/ TRACE [facility] Comment on above: Performed By: #### A ST, LIPID, ALT, BMP #### [facility] [address] [address] [address] Alma Prescott SPEC GRAVITY 1.010 Normal 1.005-<=1.025 [facility] Comment on above: Performed By: #### A ST, LIPID, ALT, BMP #### [facility] [address] [address] [address] Alma Prescott UR MICRO IND INDICATED Normal [facility] Comment on above: Performed By: #### A ST, LIPID, ALT, BMP #### [facility] [address] [place] [address] Dr. Alma Prescott Urobilinogen Qn (U) 0.2 {Chema'U}/dL Normal 0.2 - 1.0 [facility] Comment on above: Performed By: #### A ST, LIPID, ALT, BMP #### [facility] [address] [place] [address] Dr. Alma Prescott LACTATE/LACTIC ACIDon 2021 Lactate [Moles/Vol] 0.4 mmol/L Normal 0.4-1.9 [facility] Comment on above: Performed By: #### C BC #### [facility] [address] [address] [address] Alma Prescott PROF CHEM 8 (BAS METB)on Anion gap [Moles/Vol] 13.9 mmol/L Normal [facility] Comment on above: Performed By: #### A ST, LIPID, ALT, BMP #### [facility] [address] [address] [address] Alma Prescott Calcium [Mass/Vol] 8.7 mg/dL Normal 8.5-10.1 [facility] Comment on above: Performed By: #### A ST, LIPID, ALT, BMP #### [facility] [address] [address] [address] Alma Prescott Chloride [Moles/Vol] 102 mmol/L Normal 98-107 [facility] Comment on above: Performed By: #### A ST, LIPID, ALT, BMP #### [facility] [address] [place] [address] Dr. Alma Prescott CO2 [Moles/Vol] 26.8 mmol/L Normal 21.0-32.0 [facility] Comment on above: Performed By: #### A ST, LIPID, ALT, BMP #### [facility] [address] [address] [address] Alma Prescott Creatinine [Mass/Vol] 1.91 mg/dL Critically high 0.70-1.30 [facility] Comment on above: Performed By: #### A ST, LIPID, ALT, BMP #### [facility] [address] [address] [address] Alma Prescott EGFR-AF TUVALUAN 41 mL/min/1.73m2 Critically low >=60 [facility] Comment on above: Performed By: #### A ST, LIPID, ALT, BMP #### [facility] [address] [address] [address] Alma Prescott EGFR-NON AF TUVALUAN 34 mL/min/1.73m2 Critically low >=60 [facility] Comment on above: Performed By: #### A ST, LIPID, ALT, BMP #### [facility] [address] [address] [address] Alma Prescott Glucose [Mass/Vol] 76 mg/dL Normal 74-106 [facility] Comment on above: Performed By: #### A ST, LIPID, ALT, BMP #### [facility] [address] [place] [address] Dr. Alma Prescott Potassium [Moles/Vol] 4.7 mmol/L Normal 3.5-5.1 [facility] Comment on above: Performed By: #### A ST, LIPID, ALT, BMP #### [facility] [address] [address] [address] Alma Prescott Sodium [Moles/Vol] 138 mmol/L Normal 136-145 [facility] Comment on above: Performed By: #### A ST, LIPID, ALT, BMP #### [facility] [address] [address] [address] Alma Prescott Urea nitrogen [Mass/Vol] 21.0 mg/dL Critically high 7.0-18.0 [facility] Comment on above: Performed By: #### A ST, LIPID, ALT, BMP #### [facility] [address] [place] [address] Dr. Alma Prescott Urea nitrogen/Creatinin e [Mass ratio] 11.0 mg/mg Normal [facility] Comment on above: Performed By: #### A ST, LIPID, ALT, BMP #### [facility] [address] [place] [address] Dr. Alma Prescott TROPONIN, HIGH SENSITIVITYon 11-16-2021 HSTROP 20.5 pg/mL Normal 4.0-76.1 [facility] Comment on above: Result Comment: CUT- OFF POINTS HAVE BEEN ESTABLISHED BASED ON THE FOURTH UNIVERSAL DEFINITIONS OF MYOCARDIAL INFARCTION. THE UPPER REFERENCE LIMIT (URL) OF TROPONIN, DEFINED THE 99TH PERCENTILE OF cTnI DISTRIBUTION IN A REFERENCE POPULATION, HAS BEEN CONFIRMED THE DECISION THRESHOLD FOR IA DIAGNOSIS. Performed By: #### A ST, LIPID, ALT, BMP #### [facility] [address] [place] [address] Dr. Alma Prescott URINE MICROSCOPIC ONLYon BACTERIA NONE SEEN Normal NONE SEEN [facility] Comment on above: Performed By: #### A ST, LIPID, ALT, BMP #### [facility] [address] [place] [address] Dr. Alma Prescott Bacteria identified Cx Nom (U) NOT INDICATED Normal [facility] Comment on above: Performed By: #### A ST, LIPID, ALT, BMP #### [facility] [address] [place] [address] Dr. Alma Prescott CAST NONE SEEN Normal NONE SEEN [facility] Comment on above: Performed By: #### A ST, LIPID, ALT, BMP #### [facility] [address] [place] [address] Dr. Alma Prescott Crystals LM Nom (Urine sed) NONE SEEN Normal NONE SEEN [facility] Comment on above: Performed By: #### A ST, LIPID, ALT, BMP #### [facility] [address] [place] [address] Dr. Alma Prescott Epithelial cells LM Ql (Urine sed) RARE Normal NONE SEEN /RARE [facility] Comment on above: Performed By: #### A ST, LIPID, ALT, BMP #### [facility] [address] [place] [address] Dr. Alma Prescott MUCOUS NONE SEEN Normal NONE SEEN [facility] Comment on above: Performed By: #### A ST, LIPID, ALT, BMP #### [facility] [address] [place] [address] Dr. Alma Prescott RBC 2-5 Abnormal 0-2 [facility] Comment on above: Performed By: #### A ST, LIPID, ALT, BMP #### [facility] [address] [place] [address] Dr. Alma Prescott WBC NONE SEEN Normal NONE SEEN [facility] Comment on above: Performed By: #### A ST, LIPID, ALT, BMP #### [facility] [address] [address] [address] Alma Prescott US GRAY DOP LEG BILon 022 US GRAY DOP LEG BRITTANY EXAM: US GRAY DOP LEG BRITTANY HISTORY: SHORTNESS OF BREATH COMPARISON: 09/05/2021 TECHNIQUE: Ultrasonography of both lower extremities is performed from the groin to the knee. FINDINGS: There is no deep venous thrombosis. The deep venous structures demonstrate normal compressibility. No intraluminal thrombus. Normal color Doppler images with spectral waveforms. There is subcutaneous edema present, similar to the prior study. IMPRESSION: No evidence for deep venous thrombosis. Subcutaneous edema. Electronically authenticated by: ALYSON NIETO Date: 2021-11-16 20:39 Normal [facility] XR CHEST 1 Von 11-16-2021 XR CHEST 1 V EXAMINATION: XR CHES T 1 V HISTORY: SHORTNESS OF BREATH , bilateral leg swelling COMPARISON: XR chest 11/29/2020 FINDINGS: LUNGS: No significant pulmonary parenchymal abnormalities. VASCULATURE: No increased pulmonary vasculature. PLEURA: No pneumothorax, effusion, or pleural thickening. CARDIAC: No cardiomegaly or cardiac silhouette abnormality. MEDIASTINUM: Prior sternotomy. No visible mass or adenopathy. BONES: No fracture or visible bone lesion. OTHER: Negative. IMPRESSION: 1. Low lung volume examination. 2. No acute cardiopulmonary process. Stable chest. Electronically authenticated by: STEVO DAVID Date: 2021-11-16 12:51 Normal [facility] C-PEPTIDE, SERUMon 2 C-Peptide, Serum 0.9 ng/mL Critically low 1.1-4.4 [facility] Comment on above: Result Comment: C-Pe ptide reference interval is for fasting patients. Performed By: #### A ST, LIPID, ALT, BMP #### [facility] [address], [place] [address] Dr. Alma Prescott ALBUMINon 11-02-2021 Albumin [Mass/Vol] 3.3 g/dL Critically low 3.4-5.0 [facility] Comment on above: Performed By: #### A ST, LIPID, ALT, BMP #### [facility] [address] [address] [address] Alma Prescott LIPID PROFILEon 11-02-2021 CHOL-HDL RATIO NORM SEE BELOW Normal [facility] Comment on above: Result Comment: 3.3 - 4.4 LOW RISK 4.4 - 7.1 AVERAGE RISK 7.1 - 11.0 MODERATE RISK >11.0 HIGH RISK Performed By: #### A ST, LIPID, ALT, BMP #### [facility] [address] [address] [address] Alma Prescott Cholesterol [Mass/Vol] 172 mg/dL Normal <=200 [facility] Comment on above: Performed By: #### A ST, LIPID, ALT, BMP #### [facility] [address] [address] [address] Alma Prescott Cholesterol in HDL [Mass/Vol] 62 mg/dL Critically high 40-60 [facility] Comment on above: Performed By: #### A ST, LIPID, ALT, BMP #### [facility] [address] [place] [address] Dr. Alma Prescott Cholesterol in LDL [Mass/Vol] 93.2 mg/dL Normal [facility] Comment on above: Performed By: #### A ST, LIPID, ALT, BMP #### [facility] [address] [place] [address] Dr. Alma Prescott Cholesterol.total/ Cholesterol in HDL [Mass ratio] 2.8 {ratio} Normal [facility] Comment on above: Performed By: #### A ST, LIPID, ALT, BMP #### [facility] [address] [place] [address] Dr. Alma Prescott HDL NORMAL > or = 60 mg/dl - LO W CARDIOVASCULAR RISK <40 mg/dl - HIGH CARDIOVASCULAR RISK Normal [facility] Comment on above: Performed By: #### A ST, LIPID, ALT, BMP #### [facility] [address] [place] [address] Dr. Alma Prescott LDL CALC NORMAL SEE BELOW Normal [facility] Comment on above: Result Comment: <100 mg/dl OPTIMAL 100 - 129 mg/dl NEAR OR ABOVE OPTIMAL 130 - 159 mg/dl BORDERLINE HIGH 160 - 189 mg/dl HIGH >190 mg/dl VERY HIGH Performed By: #### A ST, LIPID, ALT, BMP #### [facility] [address] [address] [address] Alma Prescott Triglyceride [Mass/Vol] 84 mg/dL Normal <=150 [facility] Comment on above: Performed By: #### A ST, LIPID, ALT, BMP #### [facility] [address] [address] [address] Alma Prescott VLDL CALC 16.8 mg/dL Normal [facility] Comment on above: Performed By: #### A ST, LIPID, ALT, BMP #### [facility] [address] [address] [address] Alma Prescott MICROALB CREAT RATIO RANDOMo n 11-02-2021 mALB 35.8 mg/L Critically high <=30.0 [facility] Comment on above: Performed By: #### C MP, BNP, CRP #### [facility] [address] [place] [address] Dr. Alma Prescott MALB CR RATIO 518.7 mg/g Critically high 0.0-29.9 [facility] Comment on above: Performed By: #### C MP, BNP, CRP #### [facility] [address] [place] [address] Dr. Alma Prescott MALB CR RATIO RANGE SEE BELOW Normal [facility] Comment on above: Result Comment: NO M ICROALBUMINURIA 0-29 MG/G CLINICAL MICROALBUMINURIA 30-300 MG/G MACROALBUMINURIA >300 MG/G Performed By: #### C MP, BNP, CRP #### [facility] [address] [place] [address] Dr. Alma Prescott URINE CREAT 69.02 mg/dL Normal 20.00-300.00 [facility] Comment on above: Performed By: #### C MP, BNP, CRP #### [facility] [address] [place] [address] Dr. Alma Prescott PHOSPHORUSon 11-02-2021 Phosphate [Mass/Vol] 4.1 mg/dL Normal 2.6-4.7 [facility] Comment on above: Performed By: #### A ST, LIPID, ALT, BMP #### [facility] [address] [address] [address] Alma Prescott PROF CHEM 8 (BAS METB)on Anion gap [Moles/Vol] 15.6 mmol/L Normal [facility] Comment on above: Performed By: #### A ST, LIPID, ALT, BMP #### [facility] [address] [address] [address] Alma Prescott Calcium [Mass/Vol] 8.7 mg/dL Normal 8.5-10.1 [facility] Comment on above: Performed By: #### A ST, LIPID, ALT, BMP #### [facility] [address] [place] [address] Dr. Alma Prescott Chloride [Moles/Vol] 106 mmol/L Normal 98-107 [facility] Comment on above: Performed By: #### A ST, LIPID, ALT, BMP #### [facility] [address] [place] [address] Dr. Alma Prescott CO2 [Moles/Vol] 23.7 mmol/L Normal 21.0-32.0 [facility] Comment on above: Performed By: #### A ST, LIPID, ALT, BMP #### [facility] [address] [place] [address] Dr. Alma Prescott Creatinine [Mass/Vol] 1.65 mg/dL Critically high 0.70-1.30 [facility] Comment on above: Performed By: #### A ST, LIPID, ALT, BMP #### [facility] [address] [place] [address] Dr. Alma Prescott EGFR-AF TUVALUAN 48 mL/min/1.73m2 Critically low >=60 [facility] Comment on above: Performed By: #### A ST, LIPID, ALT, BMP #### [facility] [address] [place] [address] Dr. Alma Prescott EGFR-NON AF TUVALUAN 40 mL/min/1.73m2 Critically low >=60 [facility] Comment on above: Performed By: #### A ST, LIPID, ALT, BMP #### [facility] [address] [address] [address] Alma Prescott Glucose [Mass/Vol] 71 mg/dL Critically low 74-106 [facility] Comment on above: Performed By: #### A ST, LIPID, ALT, BMP #### [facility] [address] [address] [address] Alma Prescott Potassium [Moles/Vol] 4.3 mmol/L Normal 3.5-5.1 [facility] Comment on above: Performed By: #### A ST, LIPID, ALT, BMP #### [facility] [address] [address] [address] Alma Prescott Sodium [Moles/Vol] 141 mmol/L Normal 136-145 [facility] Comment on above: Performed By: #### A ST, LIPID, ALT, BMP #### [facility] [address] [address] [address] Alma Prescott Urea nitrogen [Mass/Vol] 21.0 mg/dL Critically high 7.0-18.0 [facility] Comment on above: Performed By: #### A ST, LIPID, ALT, BMP #### [facility] [address] [address] [address] Alma Prescott Urea nitrogen/Creatinin e [Mass ratio] 12.7 mg/mg Normal [facility] Comment on above: Performed By: #### A ST, LIPID, ALT, BMP #### [facility] [address] [place] [address] Dr. Alma Prescott Radiologyon 11-02-2021 XR Chest 2 Views Normal [facility] DO Work Phone: [facility] 11-02-2021 AST [Catalytic activity/Vol] 26 U/L Normal 15-37 [facility] Comment on above: Performed By: #### A ST, LIPID, ALT, BMP #### [facility] [address] [place] [address] Dr. Alma Prescott [facility] 11-02-2021 ALT [Catalytic activity/Vol] 36 U/L Normal 16-63 [facility] Comment on above: Performed By: #### A ST, LIPID, ALT, BMP #### [facility] [address], [place] [address] Dr. Alma Prescott VITAMIN D 25 OHon 11-02-2021 VIT D 25-OH 39.7 ng/mL Normal [facility] Comment on above: Performed By: #### A ST, LIPID, ALT, BMP #### [facility] [address] [place], [place] [address] Dr. Alma Prescott VIT D RANGES SEE BELOW Normal [facility] Comment on above: Result Comment: <20 ng/mL Vit D deficient 20 - <30 ng/mL Vit D insufficient 30 - 100 ng/mL Vit D sufficient >100 ng/mL Potential Toxicity Performed By: #### A ST, LIPID, ALT, BMP #### [facility] [address] [place], [place] [address] Dr. 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) (Z95.1) Essential hypertension, benign (401.1) (I10) Afib (427.31) (I48.91) Diabetes (250.00) (E11.9) Class 1 obesity with body mass index (BMI) of 32.0 to 32.9 in adult (278.00,V85.32) (E66.9,Z68.32) Arteriosclerosis of carotid artery (433.10) (I65.29) Chronic kidney disease, stage 3 (585.3) (N18.30) Coronary angioplasty status (V45.82) (Z98.61) Radial to OM also PTCA of LM/OM High risk medication use (V58.69) (Z79.899) Hyperlipidemia (272.4) (E78.5) Hyperuricemia (790.6) (E79.0) Stroke (434.91) (I63.9) Lower extremity edema (782.3) (R60.0) Orders Arteriosclerosis of coronary artery, Essential hypertension, benign, High risk medication use, Hyperlipidemia Start: Bumetanide 1 MG Oral Tablet; TAKE 1 TABLET TWICE DAILY ALT - Alanine Aminotransferase, Serum; Status:Active - Retrospective Authorization; Requested for:25Sep2021; AST; Status:Active - Retrospective Authorization; Requested for:25Sep2021; Basic Metabolic Panel; Status:Active - Retrospective Authorization; Requested for:25Sep2021; Lipid Panel; Status:Active - Retrospective Authorization; Requested for:25Sep2021; Atrial flutter IO EKG Electrocardiogram- 12 Lead; Status:Complete; Done: 18Sep2021 Class 1 obesity with body mass index (BMI) of 32.0 to 32.9 in adult Healthy Weight Tips; Status:Complete - Retrospective Authorization; Done: 18Sep2021 Unlinked Stop: Bumetanide 1 MG Oral Tablet Patient Instructions By signing my name below, I, Erich Turner LPNScribe, attest that this documentation has been prepared under the direction and in the presence of Dr. Felice Sanches MD. All medical record entries made by the Scribe were at my direction and personally dictated by me. I have reviewed the chart and agree that the record accurately reflects my personal performance of the history, physical exam, discussion and plan. Please bring all medicines, vitamins, and herbal supplements with you when you come to the office. Prescriptions will not be filled unless you are compliant with your follow up appointments or have a follow up appointment scheduled as per instruction of your physician. Refills should be requested at the time of your visit Follow up in 6 months Amiodarone follow up per routine - per Dr. Felice Sanches MD PFT/CXR annually labs q 6 mos Chief Complaint RACHEL CASANOVA is being seen for a 6 month follow-up of. Patient is in the office for follow-up for the problems noted below. He reports only problem with lower extremity edema but denies any chest pain or need for nitroglycerin has no orthopnea or PND. The patient has been maintaining sinus rhythm on the amiodarone. His amiodarone testing was reviewed with him. The patient EKG today confirms sinus rhythm with normal QTc interval. He does have right bundle branch block which is chronic. Recent lab were reviewed with him. His creatinine 1.7. His weight is 10 pounds below his last visit which is encouraging. His diabetes is managed by endocrinology. He is due for lipid profile which is ordered. ASSESSMENT AND PLAN: 1. Coronary artery disease, stable, status post bypass surgery and angioplasty. There has been no recurrent disease. His last angioplasty 2014 involved radial artery bypass to the obtuse marginal and also left main angioplasty and obtuse marginal angioplasty for in-stent restenosis. Last nuclear stress test in December 2020 revealed no ischemia or myocardial infarction ejection fraction 58% 2. Diabetes, this has been entirely handled by endocrinology. He is getting under control. 3. Carotid disease, patient has stable disease but had stroke last summer which I believe is unrelated to his carotid disease. He is on secondary prevention measures. 4. Hyperlipidemia, on statin therapy. Lipid profile is being followed closely and is ordered for now. 5. Hypertension. Currently controlled. 6. Obesity. Encouraged the patient to cut back calorie intake and bring his weight under control with regular exercise. He lost 10 pounds since last visit 7. Chronic kidney disease stage III being monitored nonprogressive. 8. 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 Paroxysmal/persistent atrial fibrillation status post successful cardioversion restoring sinus rhythm January 2021. We will continue amiodarone along with Eliquis. Amiodarone surveillance testing has been followed. 10. Lower extremity edema. Will double the Bumex to 1 mg twice daily and follow his basic metabolic profile next week. Current Meds Medication NameInstruction Amiodarone HCl - 200 MG Oral TabletTAKE 1 TABLET DAILY. Atorvastatin Calcium 80 MG Oral TabletTAKE ONE TABLET BY MOUTH AT BEDTIME Bumetanide 1 MG Oral TabletTAKE 1 TABLET DAILY. Carvedilol 25 MG Oral TabletTAKE 1 TABLET TWICE DAILY. Clopidogrel Bisulfate 75 MG Oral TabletTAKE 1 TABL (more content not included)... Normal [facility] Tobacco Screening.on Adult depression screening assessment No [facility] 250 DO Work Phone: Fall risk assessment a) No falls within the last year [facility] 250 DO Work Phone: Tobacco use status [facility] b) No [facility] 250 DO Work Phone: US GRAY DOP LEG BILon 022 US GRAY DOP LEG BRITTANY EXAMINATION: US GRAY DOP LEG BRITTANY HISTORY: Deep venous thrombosis of lower extremity (disorder) COMPARISON: No relevant comparison available. FINDINGS: REGION: Bilateral lower extremities THROMBI: None. COMPRESSIBILITY: Normal compressibility. FLOW: Normal waveform and antegrade flow between 5 and 20 cm/s. OTHER: Prominent subcutaneous edema bilaterally. IMPRESSION: 1. No deep vein thrombus within the right or left lower extremity. 2. Subcutaneous edema bilaterally. Electronically authenticated by: STEVO DAVID Date: 2021-09-05 13:34 Normal [facility] CULTURE WOUNDon 07-06-2021 CULTURE WOUND Specimen Comments: RIGHT LOWER LEG Culture Observations: GB STREP CALD TO QUINCY MAXWELL@0925//RK Isolate 1 Proteus mirabilis Heavy growth of Isolate 2 Streptococcus agalactiae Heavy growth of ORGANISM 1 Proteus mirabilis ANTIBIOTIC M.I.C RX STATUS Ampicillin >=32 R F Ampicillin/Sulbactam <=2 S F Piperacillin/Tazobact am <=4 S F Cefazolin >=64 R F Ceftazidime <=1 R F Ceftriaxone <=1 R F Ertapenem <=0.5 S F Imipenem 2 S F Amikacin <=2 S F Gentamicin <=1 S F Tobramycin <=1 S F Ciprofloxacin <=0.25 S F Levofloxacin <=0.12 S F Trimethoprim/Sulfamet hoxazole <=20 S F ORGANISM 2 Streptococcus agalactiae ANTIBIOTIC M.I.C RX STATUS Benzylpenicillin <=0.06 S F Ampicillin <=0.25 S F Cefotaxime <=0.12 S F Ceftriaxone <=0.12 S F Levofloxacin 0.5 S F Inducible Clindamycin Resistance Neg NEG F Erythromycin <=0.12 S F Clindamycin <=0.25 S F Linezolid <=2 S F Vancomycin 0.5 S F Tetracycline <=0.25 S F Normal [facility] Comment on above: Performed By: #### C MP, BNP #### [facility] [address] [place] [address] Dr. Alma Prescott GRAM STAINon 07-04-2021 DIPHTHEROIDS Normal [facility] Comment on above: Performed By: #### A ST, LIPID, ALT, BMP #### [facility] [address] [address] [address] Alma Prescott EPITHELIALS Normal [facility] Comment on above: Performed By: #### A ST, LIPID, ALT, BMP #### [facility] [address] [address] [address] Alma Prescott FUNGAL ELEMENTS Normal [facility] Comment on above: Performed By: #### A ST, LIPID, ALT, BMP #### [facility] [address] [address] [address] Alma Prescott GRAM NEG BACILLI MANY Normal [facility] Comment on above: Performed By: #### A ST, LIPID, ALT, BMP #### [facility] [address] [address] [address] Alma YUEN NEG DIPPLOCOCCI Normal [facility] Comment on above: Performed By: #### A ST, LIPID, ALT, BMP #### [facility] [address] [address] [address] Alma Presctot GRAM POS BACILLI Normal [facility] Comment on above: Performed By: #### A ST, LIPID, ALT, BMP #### [facility] [address] [address] [address] Alma Prescott GRAM POSITIVE COCCI MANY Normal [facility] Comment on above: Performed By: #### A ST, LIPID, ALT, BMP #### [facility] [address] [address] [address] Alma Prescott GRAM STAIN SOURCE RIGHT LOWER LEG Normal [facility] Comment on above: Performed By: #### A ST, LIPID, ALT, BMP #### [facility] [address] [address] [address] Alma Prescott GS_DIPTH [place] [facility] Comment on above: Performed By: #### A ST, LIPID, ALT, BMP #### [facility] [address] [place] [address] Dr. Alma Prescott WBC FEW Normal [facility] Comment on above: Performed By: #### A ST, LIPID, ALT, BMP #### [facility] [address] [address] [address] Alma Prescott BASIC METABOLIC PANELon 02-0 Calcium [Mass/Vol] 8.7 mg/dL Normal 8.6-10.3 [facility] Comment on above: Performed By: #### 6 517 #### [facility] of [address], [address] [place] [address] Centrifugal Spinner: Des Martell MD Chloride [Moles/Vol] 103 mmol/L Normal 98-110 [facility] Comment on above: Performed By: #### 6 517 #### [facility] of [address], [address] [place] [address] [employer]rifug[employer] Spinner: Des Martell MD CO2 [Moles/Vol] 24 mmol/L Normal 20-32 [facility] Comment on above: Performed By: #### 6 517 #### [facility] [address], [address] [place] [address] [employer]rifug[employer] Spinner: Des Martell MD Creatinine [Mass/Vol] 1.65 mg/dL High 0.70-1.11 [facility] Comment on above: Result Comment: For patients >49 years of age, the reference limit for Creatinine is approximately 13% higher for people identified as -Mosotho. Performed By: #### 6 517 #### [facility] [address], [address] [place] [address] [employer]rifug[employer] Spinner: Des Martell MD eGFR NON-AFR. TUVALUAN 38 mL/min/1.73m2 Low > OR = 60 [facility] Comment on above: Performed By: #### 6 517 #### [facility] [address], [address] [place] [address] Centrifug[employer] Spinner: Des Martell MD GFR/1.73 sq M.predicted among blacks MDRD (S/P/Bld) [Vol rate/Area] 44 mL/min/{1.73_m2} Low > OR = 60 [facility] Comment on above: Performed By: #### 6 517 #### [facility] of [place] [address] Centrifugal Spinner: Des Martell MD Glucose [Mass/Vol] 150 mg/dL High 65-99 [facility] Comment on above: Result Comment: Fasting reference interval For someone without known diabetes, a glucose value >125 mg/dL indicates that they may have diabetes and this should be confirmed with a follow-up test. Performed By: #### 6 517 #### [facility] [place] [address] [employer]rifug[employer]inner: Des Martell MD Potassium [Moles/Vol] 4.8 mmol/L Normal 3.5-5.3 [facility] Comment on above: Performed By: #### 6 517 #### [facility] [place] [address] [employer]rifug[employer] Spinner: Des Martell MD Sodium [Moles/Vol] 136 mmol/L Normal 135-146 [facility] Comment on above: Performed By: #### 6 517 #### [facility] [place] [address] [employer]rifug[employer] Spinner: Des Martell MD Urea nitrogen [Mass/Vol] 27 mg/dL High 7-25 [facility] Comment on above: Performed By: #### 6 517 #### [facility] [place] [address] Centrifugal Spinner: Des Martell MD Urea nitrogen/Creatinin e [Mass ratio] 16 mg/mg Normal 6-22 [facility] Comment on above: Performed By: #### 6 517 #### [facility] [place] [address] [employer]rifug[employer]inner: Des Martell MD CBC (INCLUDES DIFF/PLT)on Basophils (Bld) [#/Vol] 0.059 10*3/uL Normal 0-200 [facility] Comment on above: Performed By: #### 6 517 #### [facility] [place] [address] [employer]rifug[employer] Spinner: Des Martell MD Basophils/100 WBC (Bld) 0.9 % Normal [facility] Comment on above: Performed By: #### 6 517 #### [facility] of [place] [address] [employer]rifug[employer] Spinner: Des Martell MD Eosinophils (Bld) [#/Vol] 0.319 10*3/uL Normal 15-500 [facility] Comment on above: Performed By: #### 6 517 #### [facility] of [place] [address] [employer]rifug[employer] Spinner: Des Martell MD Eosinophils/100 WBC (Bld) 4.9 % Normal [facility] Comment on above: Performed By: #### 6 517 #### [facility] of [place] [address] Centrifugal Spinner: Des Martell MD Erythrocyte distribution width (RBC) [Ratio] 14.4 % Normal 11.0-15.0 [facility] Comment on above: Performed By: #### 6 517 #### [facility] of [place] [address] [employer]rifug[employer] Spinner: Des Martell MD Hematocrit (Bld) [Volume fraction] 32.1 % Low 38.5-50.0 [facility] Comment on above: Performed By: #### 6 517 #### [facility] of [place] [address] [employer]rifug[employer] Spinner: Des Martell MD Hemoglobin (Bld) [Mass/Vol] 10.8 g/dL Low 13.2-17.1 [facility] Comment on above: Performed By: #### 6 517 #### [facility] of [place] [address] Centrifugal Spinner: Des Martell MD Lymphocytes (Bld) [#/Vol] 1.463 10*3/uL Normal 850-3900 [facility] Comment on above: Performed By: #### 6 517 #### [facility] of [place] [address] Centrifugal Spinner: Des Martell MD Lymphocytes/100 WBC (Bld) 22.5 % Normal [facility] Comment on above: Performed By: #### 6 517 #### [facility] of [place] [address] [employer]rifug[employer]inner: Des Martell MD MCH (RBC) [Entitic mass] 29.0 pg Normal 27.0-33.0 [facility] Comment on above: Performed By: #### 6 517 #### [facility] of [place] [address] Centrifugal Spinner: Des Martell MD MCHC (RBC) [Mass/Vol] 33.6 g/dL Normal 32.0-36.0 [facility] Comment on above: Performed By: #### 6 517 #### [facility] of [place] [address] Centrifugal Spinner: Des Martell MD MCV (RBC) [Entitic vol] 86.1 fL Normal 80.0-100.0 [facility] Comment on above: Performed By: #### 6 517 #### [facility] [facility] [place] [address] Centrifug[employer] Spinner: Des Martell MD Monocytes (Bld) [#/Vol] 0.579 10*3/uL Normal 200-950 [facility] Comment on above: Performed By: #### 6 517 #### [facility] [place] [address] Centrifugal Spinner: Des Martell MD Monocytes/100 WBC (Bld) 8.9 % Normal [facility] Comment on above: Performed By: #### 6 517 #### [facility] [place] [address] Centrifugal Spinner: Des Martell MD Neutrophils (Bld) [#/Vol] 4.082 10*3/uL Normal 5690-4254 [facility] Comment on above: Performed By: #### 6 517 #### [facility] [place] [address] Centrifugal Spinner: Des Martell MD Neutrophils/100 WBC (Bld) 62.8 % Normal [facility] Comment on above: Performed By: #### 6 517 #### [facility] [place] [address] Centrifugal Spinner: Des Martell MD Platelet mean volume (Bld) [Entitic vol] 10.1 fL Normal 7.5-12.5 [facility] Comment on above: Performed By: #### 6 517 #### [facility] [place] [address] Centrifugal Spinner: Des Martell MD Platelets (Bld) [#/Vol] 254 10*3/uL Normal 140-400 [facility] Comment on above: Performed By: #### 6 517 #### [facility] [place] [address] Centrifugal Spinner: Des Martell MD RBC (Bld) [#/Vol] 3.73 10*6/uL Low 4.20-5.80 [facility] Comment on above: Performed By: #### 6 517 #### [facility] [place] [address] Centrifugal Spinner: Des Martell MD WBC (Bld) [#/Vol] 6.5 10*3/uL Normal 3.8-10.8 [facility] Comment on above: Performed By: #### 6 517 #### [facility] [place] [address] Centrifugal Spinner: Des Martell MD LIPID PANEL, STANDARD 02-0 Cholesterol [Mass/Vol] 182 mg/dL Normal <200 [facility] Comment on above: Performed By: #### 5 8984, 7600, 10951, 905, 81860, 6399, 718, 622 #### [facility] [place] [address] Centrifug[employer]inner: Des Martell MD Cholesterol in HDL [Mass/Vol] 57 mg/dL Normal > OR = 40 [facility] Comment on above: Performed By: #### 5 8984, 7600, 79406, 905, 77993, 6399, 718, 622 #### [facility] [address], [address] [place] [address] Centrifugal Spinner: Des Martell MD Cholesterol in LDL [Mass/Vol] 105 mg/dL High [facility] Comment on above: Result Comment: Refe rence range: <100 Desirable range <100 mg/dL for primary prevention; <70 mg/dL for patients with CHD or diabetic patients with > or = 2 CHD risk factors. LDL-C is now calculated using the Cheryle calculation, which is a validated novel method providing better accuracy than the Friedewald equation in the estimation of LDL-C. Sanchez SS et al. MARIELOS. 2013;310(19): 8419-2169 (http://education.ChangeMob/faq/OTE317) Performed By: #### 5 8984, 7600, 04329, 905, 61021, 6399, 718, 622 #### [facility] [address], [address] [place] [address] Centrifugal Spinner: Des Martell MD Cholesterol.total/ Cholesterol in HDL [Mass ratio] 3.2 {ratio} Normal <5.0 [facility] Comment on above: Performed By: #### 5 8984, 7600, 02939, 905, 50014, 6399, 718, 622 #### [facility] [address], [address] [place] [address] Centrifugal Spinner: Des Martell MD NON HDL CHOLESTEROL 125 mg/dL (calc) Normal <130 [facility] Comment on above: Result Comment: For patients with diabetes plus 1 major ASCVD risk factor, treating to a non-HDL-C goal of <100 mg/dL (LDL-C of <70 mg/dL) is considered a therapeutic option. Performed By: #### 5 8984, 7600, 85354, 905, 44577, 6399, 718, 622 #### [facility] [address], [address] [place] [address] Centrifugal Spinner: Des Martell MD Triglyceride [Mass/Vol] 107 mg/dL Normal <150 [facility] Comment on above: Performed By: #### 5 8984, 7600, 36396, 905, 15085, 6399, 718, 622 #### [facility] [address], [address] [place] [address] Centrifugal Spinner: Des Martell MD MAGNESIUMon 06-26-2021 Magnesium [Mass/Vol] 1.7 mg/dL Normal 1.5-2.5 [facility] Comment on above: Performed By: #### 5 8984, 7600, 17053, 905, 74216, 6399, 718, 622 #### [facility] [place] [address] Centrifugal Spinner: Des Martell MD PHOSPHATE ( PHOSPHORUS)on 06-26-2021 Phosphate [Mass/Vol] 3.3 mg/dL Normal 2.1-4.3 [facility] Comment on above: Performed By: #### 5 8984, 7600, 56140, 905, 64686, 6399, 718, 622 #### [facility] [place] [address] Centrifugal Spinner: Des Martell MD PTH, INTACT WITHOUT CALCIUMo n 06-26-2021 PARATHYROID HORMONE, INTACT 80 pg/mL High 14-64 [facility] Comment on above: Result Comment: Interpretive Guide Intact PTH Calcium ------- Normal Parathyroid Normal Normal Hypoparathyroidism Low or Low Normal Low Hyperparathyroidism Primary Normal or High High Secondary High Normal or Low Tertiary High High Non-Parathyroid Hypercalcemia Low or Low Normal High Performed By: #### 6 517 #### [facility] [place] [address] Centrifugal Spinner: Des Martell MD TSH+FREE T4on 06-26-2021 Free T4 [Mass/Vol] 0.9 ng/dL Normal 0.8-1.8 [facility] Comment on above: Performed By: #### 5 8984, 7600, 93801, 905, 44002, 6399, 718, 622 #### [facility] [address], [address] [place] [address] Centrifugal Spinner: Des Martell MD TSH Qn 14.49 m[IU]/L High 0.40-4.50 [facility] Comment on above: Performed By: #### 5 8984, 7600, 68261, 905, 51145, 6399, 718, 622 #### [facility] [address], [address] [place] [address] Centrifugal Spinner: Des Martell MD URIC ACIDon 06-26-2021 Urate [Mass/Vol] 7.0 mg/dL Normal 4.0-8.0 [facility] Comment on above: Result Comment: Ther apeutic target for gout patients: <6.0 mg/dL Performed By: #### 6 517 #### [facility] [address], [address] [place] [address] Centrifugal Spinner: Des Martell MD VITAMIN D,25-OH,TOTAL,IAon 0 06-26-2021 VITAMIN D,25-OH,TOTAL,IA 34 ng/mL Normal 30-100 [facility] Comment on above: Result Comment: Alana min D Status 25-OH Vitamin D: Deficiency: <20 ng/mL Insufficiency: 20 - 29 ng/mL Optimal: > or = 30 ng/mL For 25-OH Vitamin D testing on patients on D2-supplementation and patients for whom quantitation of D2 and D3 fractions is required, the QuestAssureD(TM) 25-OH VIT D, (D2,D3), LC/MS/MS is recommended: order code 30746 (patients >2yrs). See Note 1 Note 1 For additional information, please refer to http://education.ChangeMob/faq/YUS029 (This link is being provided for informational/ educational purposes only.) Performed By: #### 6 517 #### [facility] [address], [address] [place] [address] Centrifugal Spinner: Des Martell MD No Panel Informationon 06-21 8.9\S\8.9 Normal 8.2-10.2 -[facility] ENJORE-[place] 600 DO Work Phone: 21.8\S\21.8 below low threshold 22.0-30.0 MP-[facility] Heart-[place] 600 DO Work Phone: 103\S\103 Normal 95-114 -[facility] 600 DO Work Phone: 4.2\S\4.2 Normal 3.5-5.1 -[facility] 600 DO Work Phone: 136\S\136 Normal 136-146 [facility] ENJORE-[place] 600 DO Work Phone: 47\S\47 Normal [facility] 600 DO Work Phone: Comment on above: GFR estimated refere nce range: According to KDOQI guidelines, <60 ml/min/1.73m2 is sufficient to diagnose a patient with chronic kidney disease. 39\S\39 Normal [facility] 600 DO Work Phone: 1.70\S\1.70 above high threshold 0.64-1.27 [facility] 600 DO Work Phone: 29\S\29 above high threshold 9-23 -[facility] 600 DO Work Phone: 53\S\53 below low threshold 70-100 [facility] 600 DO Work Phone: Comment on above: Random Glucose Refer ence Range is dependent on time and content of last meal. Glucose of more than 200 mg/dL in a nonstressed, ambulatory subject supports the diagnosis of Diabetes Mellitus. ADA recommended reference range 32\S\32 Normal 10-42 -[facility] [place] 600 DO Work Phone: 13.22\S\13.22 above high threshold 0.45-5.33 [facility] 600 DO Work Phone: Comment on above: PERFORMED BY:[facility] MILLERAdrielCHAR[place]BR[place], [place] [phone] MEDICAL DIRECTORKARINA JOYNER M.D. Radiologyon 06-21-2021 XR Chest 2 Views Normal [facility] 600 DO Work Phone: TSH+FREE T4on 03-23-2021 Free T4 [Mass/Vol] 1.2 ng/dL Normal 0.8-1.8 [facility] Comment on above: Order Comment: FASTI NG:UNKNOWN FASTING: UNKNOWN Performed By: #### 5 8984 #### [facility] [address], [address] [place], [place] [address] Centrifugal Spinner: Des Martell MD TSH Qn 8.65 m[IU]/L High 0.40-4.50 [facility] Comment on above: Order Comment: FASTI NG:UNKNOWN FASTING: UNKNOWN Performed By: #### 5 8984 #### [facility] [address], [address] [place] [id number] Centrifugal Spinner: Des Martell MD IO EKG Electrocardiogram- 12 Leadon 03-20-2021 IO EKG Electrocardiogram- 12 Lead See Scanned Document [facility] io Heart[facility] 250 DO Work Phone: Office Visit (Cardiology)on 03-20-2021 Follow-up visit Diagnoses/Problems Assessed Arteriosclerosis of coronary artery (414.00) (I25.10) Arteriosclerosis of carotid artery (433.10) (I65.29) High risk medication use (V58.69) (Z79.899) Atrial flutter (427.32) (I48.92) Coronary angioplasty status (V45.82) (Z98.61) Radial to OM also PTCA of LM/OM Essential hypertension, benign (401.1) (I10) Hyperlipidemia (272.4) (E78.5) Diabetes (250.00) (E11.9) Former smoker (V15.82) (Z87.891) quit 1965 Class 1 obesity with body mass index (BMI) of 34.0 to 34.9 in adult (278.00,V85.34) (E66.9,Z68.34) Hyperuricemia (790.6) (E79.0) Stroke (434.91) (I63.9) History of coronary artery bypass graft (V45.81) (Z95.1) Chronic kidney disease, stage 3 (585.3) (N18.30) Orders Atrial flutter IO EKG Electrocardiogram- 12 Lead; Status:Complete - Retrospective Authorization; Done: 20Mar2021 12:00AM Class 1 obesity with body mass index (BMI) of 34.0 to 34.9 in adult Healthy Weight Tips; Status:Complete - Retrospective Authorization; Done: 20Mar2021 SocHx: Former smoker Tobacco Use Screening; Status:Complete; Done: 20Mar2021 Follow up in [6 ] months .fum Patient Instructions By signing my name below, IShahida Lpn,Scribe, attest that this documentation has been prepared under the direction and in the presence of Dr. Felice Sanches MD. All medical record entries made by the Scribe were at my direction and personally dictated by me. I have reviewed the chart and agree that the record accurately reflects my personal performance of the history, physical exam, discussion and plan. Chief Complaint RACHEL CASANOVA is being seen for a 6 month follow-up of. Patient is in the office after having recent successful cardioversion restoring normal sinus rhythm while he is on amiodarone and long-term anticoagulation with Eliquis. EKG confirmed that he remains in sinus rhythm, QTc interval in the therapeutic range. He complains of occasional dizziness which is nonspecific symptoms. He denies any orthopnea PND or lower extremity edema. Has not utilize nitroglycerin lately. He has not had any bleeding complications. His weight remains way off target. Education provided to reduce calorie consumption and stay physically active. He had one fall since last year. Education provided to prevent future falls. His cardiac pulmonary examinations were normal. ASSESSMENT AND PLAN: 1. Coronary artery disease, stable, status post bypass surgery and angioplasty. There has been no recurrent disease. His last angioplasty 2014 involved radial artery bypass to the obtuse marginal and also left main angioplasty and obtuse marginal angioplasty for in-stent restenosis. Last nuclear stress test in December 2020 revealed no ischemia or myocardial infarction ejection fraction 58% 2. Diabetes, this has been entirely handled by his PCP 3. Carotid disease, patient has stable disease but had stroke last summer which I believe is unrelated to his carotid disease. He is on secondary prevention measures. 4. Hyperlipidemia, on statin therapy. Lipid profile is being followed closely 5. Hypertension. Currently controlled. 6. Obesity. Encouraged the patient to cut back calorie intake and bring his weight under control with regular exercise. 7. Chronic kidney disease stage III being monitored nonprogressive. 8. 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 Paroxysmal/persistent atrial fibrillation status post successful cardioversion restoring sinus rhythm January 2021. We will continue amiodarone along with Eliquis. Amiodarone surveillance testing will be initiated.. Surgical History Problems History of Carotid artery aneurysm repair History of Complete colonoscopy Managed By: Jaime Key MD (Emergency Medicine) History of Coronary artery bypass graft History of Elbow surgery History of Foot surgery History of Hemorrhoidectomy History of Percutaneous transluminal coronary angioplasty History of Rotator cuff repair History of Small bowel resection Current Meds Medication NameInstruction Amiodarone HCl - 200 MG Oral TabletTAKE 1 TABLET DAILY. Atorvastatin Calcium 80 MG Oral TabletTAKE 1 TABLET AT BEDTIME. Bumetanide 0.5 MG Oral TabletTAKE 1 TABLET DAILY. Carvedilol 25 MG Oral TabletTAKE 1 TABLET TWICE DAILY. Clopidogrel Bisulfate 75 MG Oral Tablet Eliquis 2.5 MG Oral Tablet1 tab bid FLUoxetine HCl - 10 MG Oral CapsuleTAKE 1 CAPSULES DAILY. Folic Acid 1 MG Oral TabletTAKE 1 TABLET DAILY. HumaLOG Mix 75/25 KwikPen (75-25) 100 UNIT/ML Subcutaneous Suspension Pen-injector Invokana 100 MG Oral Tablet1 daily Levothyroxine Sodium 50 MCG Oral TabletTAKE 1 TABLET DAILY. metFORMIN HCl - 500 MG Oral TabletTAKE 1 TABLET EVERY 12 HOURS WITH FOOD. Nitroglycerin 0.4 MG Sublingual Tablet SublingualPLACE 1 TABLET UNDER THE TONGUE EVERY 5 MINUTES FOR UP TO 3 DOSES NEEDED FOR CHEST PAIN.CALL 911 IF PAIN PERSISTS. Pantoprazole Sodium 40 MG Oral Tablet Delayed ReleaseTAKE 1 TABLET DAILY. Potassium Chloride E (more content not included)... Normal blogfoster Tobacco Screening.on Fall risk assessment b) One or more falls in the last year [facility] 250 DO Work Phone: Tobacco use status [facility] b) No -[facility] 250 DO Work Phone: ALBUMIN, RANDOM URINE W/CREA TININEon 02-21-2021 ALBUMIN, URINE 60.1 mg/dL Normal See Note: [facility] Comment on above: Order Comment: SPLIT 02/16/2021 FROM [id number] Result Comment: Refe rence Range: Reference Range Not established Verified by repeat analysis. Performed By: #### 6 517 #### [facility] [address], [address] [place] [address] Centrifugal Spinner: Des Martell MD ALBUMIN/CREATININE RATIO, RANDOM URINE 1431 mcg/mg creat High <30 [facility] Comment on above: Order Comment: SPLIT 02/16/2021 FROM [id number] Result Comment: The ADA defines abnormalities in albumin excretion as follows: Albuminuria Category Result (mcg/mg creatinine) Normal to Mildly increased <30 Moderately increased 30-299 Severely increased > OR = 300 The ADA recommends that at least two of three specimens collected within a 3-6 month period be abnormal before considering a patient to be within a diagnostic category. Performed By: #### 6 517 #### [facility] [address], [address] [place] [address] Centrifugal Spinner: Des Martell MD Creatinine (U) [Mass/Vol] 42 mg/dL Normal 20-320 [facility] Comment on above: Order Comment: SPLIT 02/16/2021 FROM [id number] Performed By: #### 6 517 #### [facility] [address], [address] [place] [address] Centrifugal Spinner: Des Martell MD COMPREHENSIVE METABOLIC PANE [facility] 02-21-2021 Albumin [Mass/Vol] 3.7 g/dL Normal 3.6-5.1 [facility] Comment on above: Performed By: #### 7 600, 866, 899, 24119 #### [facility] of [address], [address] [place] [address] Centrifugal Spinner: Des Martell MD Albumin/Globulin [Mass ratio] 1.3 {ratio} Normal 1.0-2.5 [facility] Comment on above: Performed By: #### 7 600, 866, 899, 30023 #### [facility] [place] [address] Centrifugal Spinner: Des Martell MD ALP [Catalytic activity/Vol] 61 U/L Normal 35-144 [facility] Comment on above: Performed By: #### 7 600, 866, 899, 99440 #### [facility] [place] [address] Centrifugal Spinner: Des Martell MD ALT [Catalytic activity/Vol] 26 U/L Normal 9-46 [facility] Comment on above: Performed By: #### 7 600, 866, 899, 42942 #### [facility] [place] [address] Centrifugal Spinner: Des Martell MD AST [Catalytic activity/Vol] 25 U/L Normal 10-35 [facility] Comment on above: Performed By: #### 7 600, 866, 899, 94993 #### [facility] [place] [address] Centrifugal Spinner: Des Martell MD Bilirubin [Mass/Vol] 0.4 mg/dL Normal 0.2-1.2 [facility] Comment on above: Performed By: #### 7 600, 866, 899, 74137 #### [facility] [place] [address] Centrifugal Spinner: Des Martell MD Calcium [Mass/Vol] 9.1 mg/dL Normal 8.6-10.3 [facility] Comment on above: Performed By: #### 7 600, 866, 899, 93890 #### [facility] [place] [address] Centrifugal Spinner: Des Martell MD Chloride [Moles/Vol] 102 mmol/L Normal 98-110 [facility] Comment on above: Performed By: #### 7 600, 866, 899, 47059 #### [facility] [place] [address] Centrifugal Spinner: Des Martell MD CO2 [Moles/Vol] 25 mmol/L Normal 20-32 [facility] Comment on above: Performed By: #### 7 600, 866, 899, 02660 #### [facility] [place] [address] Centrifugal Spinner: Des Martell MD Creatinine [Mass/Vol] 1.92 mg/dL High 0.70-1.11 [facility] Comment on above: Result Comment: For patients >49 years of age, the reference limit for Creatinine is approximately 13% higher for people identified as -Mosotho. Performed By: #### 7 600, 866, 899, 14381 #### [facility] [place] [address] Centrifugal Spinner: Des Martell MD eGFR NON-AFR. TUVALUAN 31 mL/min/1.73m2 Low > OR = 60 [facility] Comment on above: Performed By: #### 7 600, 866, 899, 64925 #### [facility] [place] [address] Centrifugal Spinner: Des Martell MD GFR/1.73 sq M.predicted among blacks MDRD (S/P/Bld) [Vol rate/Area] 36 mL/min/{1.73_m2} Low > OR = 60 [facility] Comment on above: Performed By: #### 7 600, 866, 899, 21136 #### [facility] [place] [address] Centrifugal Spinner: Des Martell MD Globulin (S) [Mass/Vol] 2.9 g/dL Normal 1.9-3.7 [facility] Comment on above: Performed By: #### 7 600, 866, 899, 65536 #### [facility] [place] [address] Centrifugal Spinner: Des Martell MD Glucose [Mass/Vol] 159 mg/dL High 65-99 [facility] Comment on above: Result Comment: Fasting reference interval For someone without known diabetes, a glucose value >125 mg/dL indicates that they may have diabetes and this should be confirmed with a follow-up test. Performed By: #### 7 600, 866, 899, 58478 #### [facility] [place] [address] Centrifugal Spinner: Des Martell MD Potassium [Moles/Vol] 4.9 mmol/L Normal 3.5-5.3 [facility] Comment on above: Performed By: #### 7 600, 866, 899, 04470 #### [facility] [place] [address] Centrifugal Spinner: Des Matrell MD Protein [Mass/Vol] 6.6 g/dL Normal 6.1-8.1 [facility] Comment on above: Performed By: #### 7 600, 866, 899, 34084 #### [facility] [place] [address] Centrifugal Spinner: Des Martell MD Sodium [Moles/Vol] 136 mmol/L Normal 135-146 [facility] Comment on above: Performed By: #### 7 600, 866, 899, 06330 #### [facility] [place] [address] Centrifugal Spinner: Des Martell MD Urea nitrogen [Mass/Vol] 29 mg/dL High 7-25 [facility] Comment on above: Performed By: #### 7 600, 866, 899, 52069 #### [facility] [place] [address] Centrifugal Spinner: Des Martell MD Urea nitrogen/Creatinin e [Mass ratio] 15 mg/mg Normal 6-22 [facility] Comment on above: Performed By: #### 7 600, 866, 899, 54190 #### [facility] [address] [place] [address] Centrifugal Spinner: Des Martell MD LIPID PANEL, [facility] 01-25 Cholesterol [Mass/Vol] 185 mg/dL Normal <200 [facility] Comment on above: Order Comment: FASTI NG:YES PATIENT UNABLE TO VOID; ADVISED TO RETURN FOR COLLECTION. FASTING: YES Performed By: #### 7 600, 866, 899, 75709 #### [facility] [address], [address] [place] [address] Centrifugal Spinner: Des Martell MD Cholesterol in HDL [Mass/Vol] 55 mg/dL Normal > OR = 40 [facility] Comment on above: Order Comment: FASTI NG:YES PATIENT UNABLE TO VOID; ADVISED TO RETURN FOR COLLECTION. FASTING: YES Performed By: #### 7 600, 866, 899, 77714 #### [facility] [address], [address] [place] [address] Centrifugal Spinner: Des Martell MD Cholesterol in LDL [Mass/Vol] 102 mg/dL High [facility] Comment on above: Order Comment: FASTI NG:YES PATIENT UNABLE TO VOID; ADVISED TO RETURN FOR COLLECTION. FASTING: YES Result Comment: Refe rence range: <100 Desirable range <100 mg/dL for primary prevention; <70 mg/dL for patients with CHD or diabetic patients with > or = 2 CHD risk factors. LDL-C is now calculated using the Sanchez-Mary calculation, which is a validated novel method providing better accuracy than the Friedewald equation in the estimation of LDL-C. Sanchez ZELAYA et al. MARIELOS. 2013;310(19): 8058-9379 (http://education.Tokamak Solutions.Whiteyboard/faq/YTF490) Performed By: #### 7 600, 866, 899, 86748 #### [facility] [address], [address] [place] [address] Centrifugal Spinner: Des Martell MD Cholesterol.total/ Cholesterol in HDL [Mass ratio] 3.4 {ratio} Normal <5.0 [facility] Comment on above: Order Comment: FASTI NG:YES PATIENT UNABLE TO VOID; ADVISED TO RETURN FOR COLLECTION. FASTING: YES Performed By: #### 7 600, 866, 899, 90326 #### [facility] [place] [address] Centrifugal Spinner: Des Martell MD NON HDL CHOLESTEROL 130 mg/dL (calc) High <130 [facility] Comment on above: Order Comment: FASTI NG:YES PATIENT UNABLE TO VOID; ADVISED TO RETURN FOR COLLECTION. FASTING: YES Result Comment: For patients with diabetes plus 1 major ASCVD risk factor, treating to a non-HDL-C goal of <100 mg/dL (LDL-C of <70 mg/dL) is considered a therapeutic option. Performed By: #### 7 600, 866, 899, 34304 #### [facility] [place] [address] Centrifugal Spinner: Des Martell MD Triglyceride [Mass/Vol] 167 mg/dL High <150 [facility] Comment on above: Order Comment: FASTI NG:YES PATIENT UNABLE TO VOID; ADVISED TO RETURN FOR COLLECTION. FASTING: YES Performed By: #### 7 600, 866, 899, 47283 #### [facility] [place] [address] Centrifugal Spinner: Des Martell MD T4, FREEon 02-21-2021 Free T4 [Mass/Vol] 1.2 ng/dL Normal 0.8-1.8 [facility] Comment on above: Performed By: #### 7 600, 866, 899, 72568 #### [facility] [place] [address] Centrifugal Spinner: Des Martell MD TSHon 02-21-2021 TSH Qn 8.27 m[IU]/L High 0.40-4.50 [facility] Comment on above: Performed By: #### 7 600, 866, 899, 72793 #### [facility] [place] [address] Centrifugal Spinner: Des Martell MD [facility] CARDIAC STRESS/REST INJE CTIONon 01-09-2021 [facility] CARDIAC STRESS/REST INJECTION Patient Name: RACHEL CASANOVA STUDY: MYOCARDIAL PERFUSION STRESS TEST WITH LEXISCAN Performing facility: [facility], [address] [place] [address], [address], [place] [address] [facility] Provider: Felice Sanches MD, [facility] PCP: Dr. Beatriz Avila Supervising provider: [facility] INDICATION: CAD; a-flutter HISTORY: Gender: M; Age: 85 y/o ; Height: 175.26 cm; Weight: 565.7362751 kg. CAD; Diabetes; High Cholesterol; HTN; Arrhythmias; Hx stroke Quit smoking. Cardiac catheterization 2002, 2005, 2008, 2012, 2014. PTCA: MVPCI. COMPARISON: [place] [facility] [place] NUM[place](S): [id number]; [id number]; [id number] ORDERING CLINICIAN: FELICE SANCHES TECHNIQUE: TWO DAY protocol. Stress injection: Date:01/09/21, 34.8 mCi of Myoview IV 20 seconds after rapid injection of Lexiscan. Rest injection: Date: 01/12/21, 33.4 mCi of Myoview IV at rest. The patient had a rapid injection of 0.4 mg of Lexiscan IV over 10 seconds. Imaging was performed by gated tomographic technique. Reason for Lexiscan: uses walker/cane STRESS TEST DATA: Resting heart rate was 85 BPM. Resting blood pressure was 140/74 mmHg. Peak blood pressure was 140/74 mmHg. Peak heart rate was 92 BPM. TEST TERMINATED DUE TO: Protocol completed FINDINGS: STRESS TEST RESULTS: Resting electrocardiogram revealed atrial fibrillation with right bundle branch block. There were no significant ischemic ECG changes or dysrhythmias. The patient did not have chest pains/symptoms during procedure. There was a normal recovery phase. IMAGING RESULTS: Image quality was good. Rest and stress tomographic images were reviewed and revealed normal perfusion without evidence of ischemia, myocardial infarction, or left ventricular dilatation with stress. Overall left ventricular systolic function appeared to be normal without regional wall motion abnormalities. Ejection fraction was 58%. TID is 0.901 and is normal. There was no evidence of attenuation artifact. IMPRESSION: Normal Lexiscan Myoview cardiac perfusion stress test. No evidence of ischemia or myocardial infarction by perfusion imaging. Normal left ventricular systolic function, ejection fraction 58%. No previous studies are available for comparison. Electronically signed by: FELICE SANCHES MD Normal [facility] ALT (SGPT)on 08-13-2018 ALT enzyme act/vol 24 U/L Normal 10-52 [facility] Comment on above: Performed By: #### 1 [id number] #### [facility] [address] [place] [id number] AST (SGOT)on 08-13-2018 AST enzyme act/vol 25 U/L Normal 13-39 [facility] Comment on above: Performed By: #### 1 [id number] #### [facility] [address] [place] [address] 60652 CBCon 08-13-2018 Erythrocyte distribution width Ratio (RBC) 13.7 % Normal 12.0-15.4 [facility] Comment on above: Performed By: #### 2 [id number] #### [facility] [address] [place] [address] 93716 Hematocrit Volume Fraction (Bld) 40.2 % Normal 38.4-54.9 [facility] Comment on above: Performed By: #### 2 [id number] #### [facility] [address] [place] [address] 96468 Hemoglobin mass conc (Bld) 13.1 g/dL Normal 12.8-17.7 [facility] Comment on above: Performed By: #### 2 [id number] #### [facility] [address] [place] [address] 42948 MCH Entitic mass (RBC) 29.8 pg Normal 27.5-32.9 [facility] Comment on above: Performed By: #### 2 [id number] #### [facility] [address] [place] [address] 32793 MCHC mass conc (RBC) 32.6 g/dL Normal 30.5-35.4 [facility] Comment on above: Performed By: #### 2 [id number] #### [facility] [address] [place] [address] 89051 MCV Entitic volume (RBC) 91.4 fL Normal 83.3-98.2 [facility] Comment on above: Performed By: #### 2 [id number] #### [facility] [address] [place] [address] NRBC Absolute 0.00 10*3/uL Normal [facility] Comment on above: Performed By: #### 2 [id number] #### [facility] [address] [place] [address] NRBC Automated 0.0 /100{WBCs} Normal [facility] Comment on above: Performed By: #### 2 [id number] #### [facility] [address] [place] [address] Platelet mean volume Entitic volume (Bld) 9.9 fL Normal 9.9-12.1 [facility] Comment on above: Performed By: #### 2 [id number] #### [facility] [address] [place] [address] Platelets #/vol (Bld) 216 10*3/uL Normal 155-404 [facility] Comment on above: Performed By: #### 2 [id number] #### [facility] [address] [place] [address] RBC #/vol (Bld) 4.40 10*6/uL Normal 4.08-6.37 [facility] Comment on above: Performed By: #### 2 [id number] #### [facility] [address] [place] [address] RDW SD 45.8 fL Normal 39.3-48.6 [facility] Comment on above: Performed By: #### 2 [id number] #### [facility] [address] [place] [address] WBC #/vol (Bld) 8.3 10*3/uL Normal 4.2-11.0 [facility] Comment on above: Performed By: #### 2 [id number] #### [facility] [address] [place] [address] Creatinineon 08-13-2018 Creatinine mass conc 1.23 mg/dL Normal 0.50-1.30 [facility] Comment on above: Performed By: #### 1 [id number] #### [facility] [address] [place] [address] GFR/1.73 sq M.predicted MDRD vol rate/area 56 mL/min/{1.73_m2} [facility] Comment on above: Result Comment: Inte rpretation for Chronic Kidney Disease: Stages 1&2 >60 Healthy or potential kidney damage. Mild decrease of GFR. Stage 3 30-59 Moderate decrease of GFR. Stage 4 15-29 Severe decrease of GFR. Stage 5 <15 Kidney failure or on dialysis. Performed By: #### 1 [id number] #### [facility] [address] [place] [address] Electrolyte Panelon 08-14-19 19 Anion gap molar conc 15 mmol/L Normal 10-20 [facility] Comment on above: Performed By: #### 1 [id number] #### [facility] [address] [place] [address] Chloride molar conc 95 mmol/L Low 98-107 [facility] Comment on above: Performed By: #### 1 [id number] #### [facility] [address] [place] [address] HCO3 molar conc (Bld) 25 mmol/L Normal 21-32 [facility] Comment on above: Performed By: #### 1 [id number] #### [facility] [address] [place] [address] Potassium molar conc 4.6 mmol/L Normal 3.5-5.1 [facility] Comment on above: Performed By: #### 1 [id number] #### [facility] [address] [place] [address] Sodium molar conc 130 mmol/L Low 136-145 [facility] Comment on above: Performed By: #### 1 [id number] #### [facility] [address] [place] [address] Lipid Panelon 08-13-2018 Cholesterol in HDL mass conc 41 mg/dL Normal [facility] Comment on above: Result Comment: Norm al Mod Risk High Risk 5-9 >48 42-48 <42 10-14 >45 40-45 <40 15-19 >38 34-38 <34 Adult >39 Performed By: #### 1 [id number] #### [facility] [address] [place] [address] Cholesterol in LDL mass conc 77 mg/dL Normal <130 [facility] Comment on above: Performed By: #### 1 [id number] #### [facility] [address] [place] [address] Cholesterol in VLDL mass conc 43 mg/dL Abnormal <30 [facility] Comment on above: Performed By: #### 1 [id number] #### [facility] [address] [place] [address] Cholesterol mass conc 161 mg/dL Normal <200 [facility] Comment on above: Performed By: #### 1 [id number] #### [facility] [address] [place] [address] Cholesterol.total/ Cholesterol in HDL mass ratio 3.9 {ratio} Normal [facility] Comment on above: Performed By: #### 1 [id number] #### [facility] [address] [place] [address] Triglyceride mass conc 216 mg/dL Abnormal <150 [facility] Comment on above: Result Comment: 150- 199 Borderline High 200-499 High >500 Very High Performed By: #### 1 [id number] #### [facility] [address] [place] [address] Urea Nitrogenon 08-13-2018 Urea nitrogen mass conc 21 mg/dL Normal 6-23 [facility] Comment on above: Performed By: #### 1 [id number] #### [facility] [address] [place] [address] Vital Signs Date Time Vital Sign Value Performing Clinician Loretta loo 09-18-2021 14:41-0400 Body height 175.26 cm Nikhil CookTh[employer] Work Phone: [facility] 250 DO Work Phone: 09-18-2021 14:41-0400 Body mass index (BMI) [Ratio] 32.93 kg/m2 Nikhil Avila Work Phone: [facility] 250 DO Work Phone: 09-18-2021 14:41-0400 Body surface area Derived from formula 2.16 m2 Nikhil Herreralong Work Phone: [facility] 250 DO Work Phone: 09-18-2021 14:41-0400 Body weight 101.15 kg Nikhil Herreralong Work Phone: [facility] 250 DO Work Phone: 09-18-2021 14:41-0400 Diastolic blood pressure 60 mm[Hg] Nikhil Herreralong Work Phone: [facility] Revivio DO Work Phone: 09-18-2021 14:41-0400 Heart rate 63 /min Nikhil Herreralong Work Phone: [facility] DO Work Phone: 09-18-2021 14:41-0400 Systolic blood pressure 138 mm[Hg] Nikhil Herreralong Work Phone: [facility] DO Work Phone: 03-20-2021 13:52-0400 Body height 175.26 cm Nikhil Herreralong Work Phone: [facility] 250 DO Work Phone: 03-20-2021 13:52-0400 Body mass index (BMI) [Ratio] 34.41 kg/m2 Nikhil Mono Herreralong Work Phone: [facility] 250 DO Work Phone: 03-20-2021 13:52-0400 Body surface area Derived from formula 2.2 m2 Nikhil G Sharonlong Work Phone: [facility] 250 DO Work Phone: 03-20-2021 13:52-0400 Body weight 105.69 kg Nikhil Cookng Work Phone: [facility] 250 DO Work Phone: 03-20-2021 13:52-0400 Diastolic blood pressure 62 mm[Hg] Nikhil Avila Work Phone: [facility] 250 DO Work Phone: 03-20-2021 13:52-0400 Heart rate 67 /min Nikhil Cookng Work Phone: [facility] 250 DO Work Phone: 03-20-2021 13:52-0400 Systolic blood pressure 130 mm[Hg] Nikhil Cookng Work Phone: [facility] 250 DO Work Phone: Encounters Encounter Date Encounter Type Care Provider Facility Start: 09-03-2023 End: 09-03-[facility] Start: 06-06-2023 End: 06-06-2023 ambulatory PHYSICIAN LUCIA FAMILY Facility:[facility] Start: 05-05-2022 End: 05-08-2022 Evaluation and management of inpatient DR JIAN ZHOU Facility:H1 Start: 05-01-2022 End: 05-02-2022 ambulatory BROCK SAMUELS Facility:H1 Start: 04-16-[address] Viver[facility] Facility: Start: 04-08-[address] NIKHIL AVILA Fac ility:H1 Start: 03-19-2022 End: 03-20-[address] NKIHIL AVILA Facility:H1 Start: 01-03-2022 End: 01-04-[address] NIKHIL AVILA Facility:H1 Start: 11-29-2021 End: 11-30-[address] NIKHIL AVILA Facility:H1 Start: 11-27-2021 End: 11-27-[address] STEVO DAVID Facility:H1 Start: 11-17-2021 End: 11-19-2021 Evaluation and management of inpatient DR SHOLA LYNN Facility:H1 Start: 11-02-2021 Chart Update Nikhil green Work Phone: [facility] 250 DO Work Phone: Start: 11-02-2021 End: 11-03-2021 ambulatory ANN Barbour [facility] Facility:H1 Start: 11-02-2021 End: 11-03-2021 ambulatory МАРИНА GROSSGH Facility:H1 Start: 10-11-2021 End: 10-12-2021 ambulatory ANN Barbour [facility] Facility:H1 Start: 09-25-2021 Patient encounter procedure Nikhil Avila Work Phone: [facility] DO Work Phone: Start: 09-18-2021 Office outpatient vi sit 25 minutes Nikhil Avila Work Phone: [facility] DO Work Phone: Start: 09-18-2021 ambulatory Nikhil Edward acility: Start: 09-13-2021 End: 09-14-2021 ambulatory VELASCO O [place]OUGHERTY Facility:H1 Start: 09-05-2021 End: 09-06-2021 ambulatory VELASCO O [place] Facility:H1 Start: 09-05-2021 End: 09-06-2021 ambulatory DMITRIY STEELE Facility:H1 Start: 08-27-2021 Rx Renewal Nikhil green Work Phone: [facility] 250 DO Work Phone: Start: 08-06-2021 End: 08-07-2021 ambulatory VELASCO O [place] Facility:H1 Start: 07-30-2021 End: 07-31-2021 ambulatory VELASCO O [place] Facility:H1 Start: 07-16-2021 End: 07-17-2021 ambulatory VELASCO O [place] Facility:H1 Start: 07-10-2021 End: 07-11-2021 ambulatory VELASCO O [place] Facility:H1 Start: 07-03-2021 End: 07-03-2021 ambulatory VELASCO O [place] Facility:H1 Start: 07-03-2021 End: 07-04-2021 ambulatory VELASCO O [place] Facility:H1 Start: 06-22-2021 Chart Update [facility] Cook ng [facility] Work Phone: Start: 04-23-2021 Patient encounter procedure Nikhil Avila Work Phone: [facility] [address] [place] Work Phone: Start: 03-20-2021 Patient encounter procedure Nikhil Avila Work Phone: [facility] 250 DO Work Phone: Start: 08-13-2018 Patient encounter procedure [facility] Facility:[id number] Start: 09-23-2017 Patient encounter procedure [facility] Facility:[id number] Procedures Date Procedure Procedure Detail Performing Clinician Start: 09-03-2023 Aspartate aminotransferase [Enzymatic activity/volume] in Serum or Plasma [facility] Start: 09-03-2023 Basic metabolic 2000 panel - Serum or Plasma [facility] Start: 09-03-2023 Lipid panel [facility] Start: 09-03-2023 Thyrotropin [Units/volume] in Serum or Plasma [facility] Start: 09-03-2023 ECG 12-LEAD [facility] Start: 05-26-2004 Total colonoscopy Nikhil Cookng Work Phone: Coronary artery bypass graft Nikhil Cookng Work Phone: Elbow joint operations Wyatt Herreralong Work Phone: Hemorrhoidectomy Nikhil Nieto rlong Work Phone: History of coronary artery bypass grafting History of coronary artery bypass graft Nikhil Herreralong Work Phone: 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 Nikhil Villareal Anagear Work Phone: Operative procedure on foot Nikhil Avila Work Phone: Percutaneous translu surendra coronary angioplasty [employer]hil [employer] Work Phone: Repair of musculoten dinous cuff of shoulder Nikhil Villareal [employer] Work Phone: Small intestine excision Ed [facility] [employer] Work Phone: Plan of Treatment Date Care Activity Detail Author Start: 04-16-2022 FUV, Provider: Felice Sanches, Status: Pen, Time: 11:20 AM FUV, Provider: Felice Sanches, Status: Pen, Time: 11:20 AM [facility] DO Work Phone: Start: 09-18-2021 FUV, Provider: Felice Sanches, Status: Pen, Time: 2:30 PM FUV, Provider: Felice Sanches, Status: Pen, Time: 2:30 PM [facility] DO Work Phone: Immunizations Immunization Date Immunization Notes Care Provider Steve horton 08-29-2020 Pfizer-BioNTech COVI D-19 Vacc 30 MCG/0.3ML Intramuscular Suspension Nikhil Villareal Anagear Work Phone: [facility] DO Work Phone: 08-08-2020 Pfizer-BioNTech COVI D-19 Vacc 30 MCG/0.3ML Intramuscular Suspension Nikhil Villareal Anagear Work Phone: [facility] DO Work Phone: 12-30-2019 influenza, seasonal, injectable Nikhil Villareal [employer] Work Phone: [facility] DO Work Phone: 12-30-2019 pneumococcal conjuga te vaccine, 13 valent Nikhil Villareal Anagear Work Phone: [facility] Ahaali DO Work Phone: 02-23-2019 influenza, seasonal, injectable Nikhil G Furlong Work Phone: [facility] Ahaali DO Work Phone: 06-06-2017 Influenza, injectabl e, Madin [place] Canine Kidney, preservative free, quadrivalent Nikhil G Furlong Work Phone: [place] [address] DO Work Phone: 03-19-2017 influenza virus vacc ine, unspecified formulation Nikhil G Furlong Work Phone: [place] [address] DO Work Phone: 05-10-2016 influenza, seasonal, injectable, preservative free Nikhil G Furlong Work Phone: [place] [address] DO Work Phone: 03-26-2016 influenza, injectabl e, quadrivalent, preservative free Nikhil G Furlong Work Phone: [place] [address] DO Work Phone: 01-25-2016 influenza virus vacc ine, unspecified formulation Nikhil G Furlong Work Phone: [place] [address] DO Work Phone: 05-16-2015 influenza virus vacc ine, unspecified formulation Nikhil G Furlong Work Phone: [facility] Ahaali DO Work Phone: 02-23-2015 pneumococcal polysaccharide vaccine, 23 valent Nikhil G [employer] Work Phone: [place] [address] DO Work Phone: 02-23-2015 seasonal influenza, intradermal, preservative free Nikhil G Furlong Work Phone: [place] [address] DO Work Phone: 03-26-2014 influenza virus vacc ine, unspecified formulation Nikhil Herreralong Work Phone: [facility] 250 DO Work Phone: 03-18-2014 influenza virus vacc ine, unspecified formulation Nikhil Villareal Furlong Work Phone: [place] [address] DO Work Phone: 03-18-2014 pneumococcal conjuga te vaccine, 13 valent Nikhil Villareal Furlong Work Phone: [place] [address] DO Work Phone: 03-18-2014 pneumococcal polysaccharide vaccine, 23 valent Nikhil Villareal Furlong Work Phone: [place] [address] DO Work Phone: 05-02-2005 pneumococcal polysaccharide vaccine, 23 valent Nikhil Villareal Furlong Work Phone: [place] [address] DO Work Phone: influenza virus vacc ine, unspecified formulation Nikhil Herrerang Work Phone: [place] [address] DO Work Phone: Comment on above: 2009 pneumococcal polysaccharide vaccine, 23 valent Nikhil Villareal Furlong Work Phone: [place] [address] DO Work Phone: Comment on above: 2008 Payers Date Payer Category Payer Self-pay 2002 Medicare [id number] 1959 Medicare [id number] 1937 Unknown [id number] 2.16.8 40.1.180164.3.579.2.355 1937 Unknown [id number] 2.16.8 40.1.763804.3.579.2.355 1937 Unknown [id number] 2.16. 840.1.412297.3.579.2.356 1937 Unknown [id number] 2.16. 840.1.383606.3.579.2.356 1937 Unknown [id number] 2.16.84 0.1.874097.3.579.2.593 1937 Unknown [id number] 2.16.84 0.1.104796.3.579.2.593 1937 Unknown [id number] 2.16.84 0.1.397596.3.579.2.593 1937 Unknown [id number] 2.16.84 0.1.058904.3.579.2.593 1937 Unknown [id number] 2.16.84 0.1.961952.3.579.2.593 1937 Unknown [id number] 2.16.84 0.1.505294.3.579.2.593 1937 Unknown [id number] 2.16.84 0.1.617850.3.579.2.593 1937 Unknown [id number] 2.16.84 0.1.847900.3.579.2.593 1937 Unknown [id number] 2.16.84 0.1.604828.3.579.2.593 1937 Unknown [id number] 2.16.84 0.1.110294.3.579.2.593 1937 Unknown [id number] 2.16.84 0.1.745642.3.579.2.593 1937 Unknown [id number] 2.16.84 0.1.342997.3.579.2.593 1937 Unknown [id number] 2.16.84 0.1.289696.3.579.2.593 1937 Unknown [id number] 2.16.84 0.1.978543.3.579.2.593 1937 Unknown [id number] 2.16.84 0.1.899034.3.579.2.593 1937 Unknown [id number] 2.16.84 0.1.028090.3.579.2.593 1937 Unknown [id number] 2.16.84 0.1.665398.3.579.2.593 1937 Unknown [id number] 2.16.84 0.1.330667.3.579.2.593 1937 Unknown [id number] 2.16.84 0.1.055841.3.579.2.593 1937 Unknown [id number] 2.16.84 0.1.776317.3.579.2.593 1937 Unknown [id number] 2.16.84 0.1.001816.3.579.2.593 1937 Unknown [id number] 2.16.8 40.1.252716.3.579.2.1244 Medicare [id number] Unknown [id number] Unknown MEDICARE Unknown [id number] 2.16.8 40.1.177008.3.579.2.531 Social History Date Type Detail Facility No alcohol use No alcohol use [facility] 250 DO Work Phone: Comment on above: coffee daily; quit 1964; Summary Purpose Family History No Family History Records FoundUnknown Family Member Name Dates Details Family history of arterioscl erotic cardiovascular disease: Mother, Father, Sister, Brother(V17.49, Z82.49) Status:Active Unknown Family Member Name Dates Details Family history of arterioscl erotic cardiovascular disease: Mother, Father, Sister, Brother(V17.49, Z82.49) Status:Active Unknown Family Member Name Dates Details Family history of arterioscl erotic cardiovascular disease: Mother, Father, Sister, Brother(V17.49, Z82.49) Status:Active Unknown Family Member Name Dates Details Family history of arterioscl erotic cardiovascular disease: Mother, Father, Sister, Brother(V17.49, Z82.49) Status:Active Unknown Family Member Name Dates Details Family history of arterioscl erotic cardiovascular disease: Mother, Father, Sister, Brother(V17.49, Z82.49) Status:Active Unknown Family Member Name Dates Details Family history of arterioscl erotic cardiovascular disease: Mother, Father, Sister, Brother(V17.49, Z82.49) Status:Active Unknown Family Member Name Dates Details Family history of arterioscl erotic cardiovascular disease: Mother, Father, Sister, Brother(V17.49, Z82.49) Status:Active Unknown Family Member Name Dates Details Family history of arterioscl erotic cardiovascular disease: Mother, Father, Sister, Brother(V17.49, Z82.49) Status:Active Advance Directives No Advanced Directives Records FoundNo Advanced Directives Records FoundNo Advanced Directives Records FoundNo Advanced Directives Records FoundNo Advanced Directives Records FoundNo Advanced Directives Records FoundNo Advanced Directives Records FoundNo Advanced Directives Records Found Chief Complaint RACHEL CASANOVA is being seen for a 6 month follow-up of.[place] [facility] [place]* RACHEL CASANOVA is being seen for a 6 month follow-up of. * Patient is in the office for follow-up for the problems noted below. He reports only problem with lower extremity edema but denies any chest pain or need for nitroglycerin has no orthopnea or PND. The patient has been maintaining sinus rhythm on the amiodarone. His amiodarone testing was reviewed with him. The patient EKG today confirms sinus rhythm with normal QTc interval. He does have right bundle branch block which is chronic. Recent lab were reviewed with him. His creatinine 1.7. His weight is 10 pounds below his last visit which is encouraging. His diabetes is managed by endocrinology. He is due for lipid profile which is ordered. * ASSESSMENT AND PLAN: * 1. Coronary artery disease, stable, status post bypass surgery and * angioplasty. There has been no recurrent disease. His last angioplasty 2014 involved radial artery bypass to the obtuse marginal and also left main angioplasty and obtuse marginal angioplasty for in-stent restenosis. Last nuclear stress test in December 2020 revealed no ischemia or myocardial infarcti on ejection fraction 58% * 2. Diabetes, this has been entirely handled by endocrinology. He is getting under control. * 3. Carotid disease, patient has stable disease but had stroke last summer which I believe is unrelated to his carotid disease. He is on secondary prevention measures. * 4. Hyperlipidemia, on statin therapy. Lipid profile is being followed closely and is ordered for now. * 5. Hypertension. Currently controlled. * 6. Obesity. Encouraged the patient to cut back calorie intake and bring his weight under control with regular exercise. He lost 10 pounds since last visit * 7. Chronic kidney disease stage III being monitored nonprogressive. * 8. 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 Paroxysmal/persistent atrial fibrillation status post successful cardioversion restoring sinus rhythm January 2021. We will continue amiodarone along with Eliquis. Amiodarone surveillance testing has been followed. * 10. Lower extremity edema. Will double the Bumex to 1 mg twice daily and follow his basic metabolicprofile next week. [place] [facility] [place]- Additional Source Comments (unrecognized sect ion and content) No Status Records FoundNo Status Records FoundNo Status Records FoundNo Status Records FoundNo Status Records FoundNo Status Records FoundNo Status Records FoundNo Status Records Found INFORMATION SOURCE (unrecogn ized section and content) DATE CREATED AUTHOR 08/18/2018 [facility] DATE CREATED AUTHOR AUTHOR'S ORGANIZ ATION 01/26/2021 [facility] DATE CREATED AUTHOR AUTHOR'S ORGANIZ ATION 06/26/2021 [facility] DATE CREATED AUTHOR AUTHOR'S ORGANIZ ATION 09/21/2021 [facility] DATE CREATED AUTHOR AUTHOR'S ORGANIZ ATION 04/17/2022 [facility] DATE CREATED AUTHOR AUTHOR'S ORGANIZ ATION 05/21/2022 [facility] DATE CREATED AUTHOR AUTHOR'S ORGANIZ ATION 07/04/2023 [facility] DATE CREATED AUTHOR AUTHOR'S ORGANIZ ATION 09/04/2023 [facility] FOR RECORDS PERTAINING TO PATIENTS WHO ARE OR HAVE BEEN ENROLLED IN A CHEMICAL DEPENDENCY/SUBSTANCEABUSE PROGRAM, SOME INFORMATION MAY BE OMITTED. This clinical summary was aggregated from multiple sources. Caution should be exercised in using it in the provision of clinical care. This summary normalizes information from multiple sources, and as a consequence, information in this document may materially change the coding, format and clinical context of patient data. In addition, data may be omitted in some cases. CLINICAL DECISIONS SHOULD BE BASED ON THE PRIMARY CLINICAL RECORDS. [facility]. provides no warranty or guarantee of the accuracy or completeness of information in this document.
[2023-10-20 01:11] LABS: Basophils Absolute Auto 0.1 10^3/uL (0.0-0.1); Eosinophils Absolute Auto 0.5 10^3/uL (0.0-0.7); Eosinophils Percent Auto 7.3 % (0.9-7.0); Hematocrit 25.2 % (42.0-54.0); Immature Granulocytes Abs Auto 0.03 10^3/uL (0.00-0.03); Immature Granulocytes Pct Auto 0.4 % (0.0-0.5); Lymphocytes Absolute Auto 1.7 10^3/uL (1.2-3.8); Lymphocytes Percent Auto 24.7 % (20.5-60.0); Mean Corpuscular HGB Conc 31.7 g/dL (29.9-35.2); Mean Corpuscular Hemoglobin 30.5 pg (25.9-34.0); Mean Corpuscular Volume 96.2 fL (80.0-94.0); Mean Platelet Volume 11.3 fL (9.5-13.5); Monocytes Absolute Auto 0.7 10^3/uL (0.3-0.8); Monocytes Percent Auto 9.3 % (1.7-12.0); Neutrophils Percent Auto 57.3 % (43.0-75.0); Platelet Count 177 10^3/uL (150-450); Red Blood Count 2.62 10^6/uL (4.70-6.10); Red Cell Distribution Width 14.6 % (11.0-15.0)
--- NOTE | 2023-10-20 01:21 | ED_ITS ---
HPI - Chest Pain General Chief Complaint: Chest Pain Stated Complaint: CHEST PAIN Time Seen by Provider: 10/20/23 00:53 Source: patient Mode of arrival: ambulance Limitations: no limitations and other Limitations comment: some degree of memory loss History of Present Illness HPI narrative: This 88-year-old male with a history of coronary artery disease who is status post bypass surgery and also has coronary stents and sees Dr. Sanches in [place] presents for evaluation of several days of midsternal chest pain. He states he has had episode of dizziness but he has been having episodes of dizziness since his stroke. He has mild shortness of breath. He denies any syncope. He has no abdominal pain nausea or vomiting. He has mild lower extremity swelling. He states he has been taking multiple aspirin throughout the day which has been keeping his chest pain at bay. He does not take any nitroglycerin because he states that although he had a prescription for it it was taken away from him when he stayed at a residential in the past. He states that he was on blood thinners in the past and cant recall their names, but stopped taking them after having some bleeding that was thought to be related to the blood thinner medications. Related Data Home Medications ?Medication ?Instructions ?Recorded ?Confirmed amiodarone 200 mg tablet (Pacerone) 200 mg PO DAILY 01/24/23 01/24/23 apixaban 2.5 mg tablet (Eliquis) 2.5 mg PO BID 01/24/23 01/24/23 bumetanide 1 mg tablet 1 mg PO DAILY 01/24/23 01/24/23 carvedilol 25 mg tablet (Coreg) 25 mg PO BID 01/24/23 01/24/23 clopidogrel 75 mg tablet (Plavix) 75 mg PO DAILY 01/24/23 01/24/23 ergocalciferol (vitamin D2) 1,250 50,000 unit PO DAILY 01/24/23 01/24/23 mcg (50,000 unit) capsule fluoxetine 10 mg capsule 10 mg PO DAILY 01/24/23 01/24/23 folic acid 1 mg tablet 1 mg PO DAILY 01/24/23 01/24/23 levothyroxine 75 mcg capsule 75 mcg PO DAILY 01/24/23 01/24/23 metformin 500 mg tablet 500 mg PO BID 01/24/23 01/24/23 nitroglycerin 0.4 mg sublingual 0.4 mg sublingual Q5M PRN chest 01/24/23 01/24/23 tablet pain pantoprazole 40 mg tablet,delayed 40 mg PO QAM 01/24/23 01/24/23 release (Protonix) potassium chloride 10 mEq 10 meq PO DAILY 01/24/23 01/24/23 tablet,extended release tamsulosin 0.4 mg capsule (Flomax) 0.4 mg PO DAILY 01/24/23 01/24/23 valsartan 80 mg tablet 80 mg PO DAILY 01/24/23 01/24/23 vitamin B complex 1 cap PO DAILY 01/24/23 01/24/23 Previous Rx's ?Medication ?Instructions ?Recorded atorvastatin 80 mg tablet 80 mg PO QPM #30 tabs 01/25/23 Allergies Allergy/AdvReac Type Severity Reaction Status Date / Time codeine Allergy Unknown Verified 10/20/23 00:53 codine Allergy Unknown Uncoded 01/23/23 19:28 Review of Systems ROS Status of ROS 10 or more systems reviewed and unremark able except as noted in history and below [facility] Medical History (Updated 10/20/23 @ 03:44 by Megan Anton MD) Dyslipidemia ?E78.5 - Hyperlipidemia, unspecified (ICD-10) Paroxysmal atrial fibrillation ?I48.0 - Paroxysmal atrial fibrillation (ICD-10) Peripheral vascular disease ?I73.9 - Peripheral vascular disease, unspecified (ICD-10) Anemia in chronic kidney disease (CKD) ?N18.9 - Chronic kidney disease, unspecified (ICD-10) ?D63.1 - Anemia in chronic kidney disease (ICD-10) Stage 3b chronic kidney disease ?N18.32 - Chronic kidney disease, stage 3b (ICD-10) Coronary artery disease ?I25.10 - Atherosclerotic heart disease of [place] coronary artery without angina pectoris (ICD-10) Type 2 diabetes mellitus with hyperglycemia ?E11.65 - Type 2 diabetes mellitus with hyperglycemia (ICD-10) Chronic heart failure with preserved ejection fraction (HFpEF) ?I50.32 - Chronic diastolic (congestive) heart failure (ICD-10) Acute ischemic vertebrobasilar artery thalamic stroke ?I63.81 - Other cerebral infarction due to occlusion or stenosis of small artery (ICD-10) LILIANA (acute kidney injury) ?N17.9 - Acute kidney failure, unspecified (ICD-10) CHF (congestive heart failure) ?I50.9 - Heart failure, unspecified (ICD-10) Hypertension ?I10 - Essential (primary) hypertension (ICD-10) Diabetes ?E11.9 - Type 2 diabetes mellitus without complications (ICD-10) 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 - Stenosis of other vascular prosthetic devices, implants and grafts, initial encounter (ICD-10) TIA (transient ischemic attack) ?G45.9 - Transient cerebral ischemic attack, unspecified (ICD-10) Surgical History H/O shoulder surgery ?Z98.890 - Other specified postprocedural states (ICD-10) Hip joint replacement by other means ?Z96.649 - Presence of unspecified artificial hip joint (ICD-10) Family History Mother Family history of CHF (congestive heart failure) Family history of hypertension Family history of myocardial infarction Father Family history of CHF (congestive heart failure) Family history of COPD (chronic obstructive pulmonary disease) Family history of cancer Family history of diabetes mellitus Family history of hypertension Family history of myocardial infarction Son Family history of cancer Family history of diabetes mellitus Social History Within the past year, how often did you have a drink containing alcohol: never Within the past year, how often did you have six or more drinks on one occasion: never Score interpretation: A score less than 4 is consistent with normal alcohol consumption. 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 Known occupational exposures/hazards: No Highest level of school completed/degree received: 9th grade Are you now , , , , never or living with a partner: In a typical week, how many times do you talk on the telephone with family, friends, or neighbors: never How often do you get together with friends or relatives: never How often do you attend yazidi or yarsani services: never Do you belong to any clubs or organizations such as yazidi groups unions, fraternal or athletic groups, or school groups: no Total score: 0 Score interpretation: A score of less than or equal to 1 indicates the most socially isolated. Little interest or pleasure in doing things: nearly every day Feeling down, depressed, or hopeless: nearly every day Feel stressed/tense/nervous/anxious/difficulty sleeping: only a little Life stressors: recent of family or friend Life stressor details: brothers Do you think of yourself as: straight/heterosexual Gender Identity: male Exam Narrative Exam Narrative: Vital signs and Nursing Notes reviewed: Patient is afebrile with a normal pulse, normal blood pressure, he is not hypoxic with pulse ox of 97% on room air General: Alert, nontoxic elderly male lying comfortably on the stretcher, no respiratory distress HEENT: Normocephalic atraumatic, mucous membranes are moist and pink, eyes are clear, normal conjunctiva, vision is grossly intact, posterior pharynx is normal in appearance. Neck: Supple, no meningeal signs, no anterior or posterior cervical lymphadenopathy Chest: Lungs are clear to auscultation with good air entry, there is no wheezing rhonchi or rales appreciated no accessory muscle use, patient is speaking in complete sentences-no chest wall tenderness to palpation, healed midline alva otomy incision CVS: Regular rate and rhythm S1-S2, no murmurs rubs or gallops, pulses are brisk and equal bilaterally ABD: Soft, nondistended, nontender, no rebound guarding or rigidity, bowel sounds are normal, no pulsatile masses appreciated Extremities: Moving all extremities, 1-2+ lower extremity edema Skin: Normal in appearance without rash,pallor, petechiae or purpura Neuro: No focal deficits Constitutional Vital Signs, click to edit/add: Last Vital Signs Temp 97.7 F 10/20/23 00:49 Pulse 70 10/20/23 06:30 Resp 15 10/20/23 06:30 BP 124/64 10/20/23 06:30 Pulse Ox 97 10/20/23 06:30 O2 Del Method Room Air 10/20/23 05:50 Course Vital Signs Vital signs: Vital Signs Temperature 97.7 F 10/20/23 00:49 Pulse Rate 82 10/20/23 00:49 Respiratory Rate 21 H 10/20/23 00:49 Blood Pressure 134/65 10/20/23 00:49 Pulse Oximetry 97 10/20/23 00:49 Oxygen Delivery Method Room Air 10/20/23 00:49 Temperature 97.7 F 10/20/23 00:49 Pulse Rate 70 10/20/23 06:30 Respiratory Rate 15 10/20/23 06:30 Blood Pressure 124/64 10/20/23 06:30 Pulse Oximetry 97 10/20/23 06:30 Oxygen Delivery Method Room Air 10/20/23 05:50 MDM - Chest Pain MDM Narrative Medical decision making narrative: This 88-year-old male with a history of coronary artery disease who is status post bypass surgery and coronary stenting is brought to the emergency department from home by EMS for evaluation of several days of midsternal chest pain with radiation into the left arm. He has been medicating himself with aspirin for the chest pain. He does have a history of chronic renal insufficiency. He is uncertain which medications he is on because he thinks he was taken off of his blood thinning medication in the past due to GI bleeding. He denies that he is having any current GI bleeding or black tarry stools. He denies any dizziness or syncope. He has no abdominal pain. An EKG done upon arrival was a sinus rhythm [address] depression. He was given a dose of sublingual nitroglycerin with mild clinical improvement in his chest pain. Cardiac workup was ordered. He has a normal white count but hemoglobin is 8. His baseline hemoglobin is around 11. He also has an elevated BUN and creatinine today. His baseline BUN is 20-25 and baseline creatinine is 1.8-1.9. His BUN today is 65 and creatinine is 3. His troponin is elevated at 186. BNP is elevated at 2593. Chest x-ray shows cardiomegaly with interstitial infiltrates that could be congestion versus multifocal pneumonia. The patient's lungs are fairly clear. He is not coughing or febrile. His white count is normal and I suspect this is more related to cardiac decompensation and heart failure than multifocal pneumonia. In light of the elevated troponin and history of heart disease the case was discussed with , Hospitalist at [facility] and he is accepted for transfer. Repeat CBC with differential and troponin was ordered. His troponin elevated slightly from 186-247 and his hemoglobin dropped from 8-7.8. He is still having some degree of chest pain and requested something in addition for pain and was remedicated with a dose of morphine. I think it is prudent at this time to transfuse him at least 1 unit of blood to help with his cardiac ischemia. He is in agreement with this plan. Consent was signed and blood products were ordered. Medical Records Data Medical records narrative: MRN: [id number] date: 1935 Sex: M Assigned Patient Location: ER Current Patient Location: Accession/Order Number: [id number] Exam Date: 10/20/2023 02:08 Report Date: 10/20/2023 03:13 At the request of: MEGAN MARKER Procedure: XR chest 1V EXAM: XR chest 1V HISTORY: CHEST PAIN, SOB COMPARISON: Chest radiograph dated 05/05/2022. TECHNIQUE: One view of the chest was obtained. FINDINGS: There are postsurgical changes of the chest with median sternotomy wires in place. Surgical clips are seen within the left aspect of the neck. The cardiac silhouette is enlarged. Aortic atherosclerotic disease is seen. There is no significant pneumothorax or pleural effusion. There are mixed interstitial and airspace opacities in the lungs. No acute osseous abnormality is seen. IMPRESSION: 1. Enlarged cardiac silhouette with mixed interstitial and airspace opacities in the lungs that could represent pulmonary edema and/or multifocal pneumonia Lab Data Labs: Lab Results 10/20/23 10/20/23 Range/Units 01:00 03:36 WBC 7.0 7.5 (4.0-11.0) 10^3/uL RBC 2.62 L 2.52 L (4.70-6.10) 10^6/uL Hgb 8.0 L 7.8 L (14.0-18.0) g/dL Hct 25.2 L 23.9 L* (42.0-54.0) % MCV 96.2 H 94.8 H (80.0-94.0) fL MCH 30.5 31.0 (25.9-34.0) pg MCHC 31.7 32.6 (29.9-35.2) g/dL RDW 14.6 14.7 (11.0-15.0) % Plt Count 177 177 (150-450) 10^3/uL MPV 11.3 11.2 (9.5-13.5) fL Neut % (Auto) 57.3 61.9 (43.0-75.0) % Lymph % (Auto) 24.7 22.7 (20.5-60.0) % [place] % (Auto) 9.3 7.1 (1.7-12.0) % Eos % (Auto) 7.3 H 6.7 (0.9-7.0) % Baso % (Auto) 1.0 0.9 (0.2-2.0) % Neut # (Auto) 4.0 4.6 (1.4-6.5) 10^3/uL Lymph # (Auto) 1.7 1.7 (1.2-3.8) 10^3/uL [place] # (Auto) 0.7 0.5 (0.3-0.8) 10^3/uL Eos # (Auto) 0.5 0.5 (0.0-0.7) 10^3/uL Baso # (Auto) 0.1 0.1 (0.0-0.1) 10^3/uL Abs Immat Gran (auto) 0.03 0.05 H (0.00-0.03) 10^3/uL Imm/Tot Granulo (auto) 0.4 0.7 H (0.0-0.5) % PT 10.9 (9.0-11.6) sec INR 1.03 Sodium 139 (136-145) mmol/L Potassium 5.0 (3.5-5.1) mmol/L Chloride 104 (98-107) mmol/L Carbon Dioxide 22.4 (21.0-32.0) mmol/L Anion Gap 17.6 BUN 65.0 H (7.0-18.0) mg/dL Creatinine 3.02 H (0.70-1.30) mg/dL Est GFR ( Amer) 24 L (>=60) Est GFR (Non-Af Amer) 20 L (>=60) BUN/Creatinine Ratio 21.5 Glucose 225 H (74-106) mg/dL Calcium 8.3 L (8.5-10.1) mg/dL Total Bilirubin 0.2 (0.2-1.0) mg/dL AST 16 (15-37) U/L ALT 17 (16-63) U/L Alkaline Phosphatase 76 (46-116) U/L Troponin I High Sens 186.1 H* 247.9 H* (4.0-76.1) pg/mL NT-Pro-B Natriuret Pep 2593.0 H* (<=1800.0) pg/mL Total Protein 7.0 (6.4-8.2) g/dL Albumin 3.3 L (3.4-5.0) g/dL Globulin 3.7 g/dL Albumin/Globulin Ratio 0.9 Lipase 89.0 H (16.0-77.0) U/L Blood Type A Positive Antibody Screen Negative ECG Data Attestation: I personally reviewed and interpreted this ECG as follows: (Sinus rhythm 82 bpm, there is diffuse ST depression in leads I, II, aVF, V3, V4 V5 and V6. Right bundle branch block is present. Left axis deviation. L anterior hemiblock.) Heart Score History: Highly Suspicious ECG: Sign. ST Depression Age: >65 years Risk Factors: >3 Risk Factors/ HX of CAD:2 Troponin: >3X Normal Limit Total Heart Score Recommendations & Risks:: 10 Critical Care Time Critical Care Time Critical Care Time: Yes Total Critical Care Time: 35 Attestation: . Discharge Plan Discharge Chief Complaint: Chest Pain Clinical Impression: Acute kidney injury, Anemia, Acute coronary syndrome Patient Disposition: [facility] Time of Disposition Decision: 03:39 Discharge Location: [facility] Condition: Serious Mode of Transportation: EMS
[2023-10-20 01:28] LABS: INR 1.03; Prothrombin Time 10.9 sec (9.0-11.6)
[2023-10-20] MEDS: NITROGLYCERIN 0.4 MG BOTTLE 0.400000000000000022 MG SL (01:30)
[2023-10-20 01:40] LABS: Alanine Aminotransferase 17 U/L (16-63); Albumin Globulin Ratio 0.9; Albumin Level 3.3 g/dL (3.4-5.0); Alkaline Phosphatase 76 U/L (46-116); Anion Gap 17.6; Aspartate Amino Transferase 16 U/L (15-37); BUN Creatinine Ratio 21.5; Bilirubin Total 0.2 mg/dL (0.2-1.0); Calcium 8.3 mg/dL (8.5-10.1); Carbon Dioxide 22.4 mmol/L (21.0-32.0); Chloride 104 mmol/L (98-107); Estimated GFR (African America 24 (>=60); Estimated GFR (Non-African Ame 20 (>=60); Globulin 3.7 g/dL; Glucose 225 mg/dL (74-106); Sodium 139 mmol/L (136-145)
[2023-10-20 01:45] LABS: Troponin I High Sensitivity 186.1 pg/mL (4.0-76.1)
--- NOTE | 2023-10-20 02:07 | PC.NURSE ---
Call out to the supervisor air conditioning installer at [facility] to have the hospitalist call regarding adm
--- NOTE | 2023-10-20 02:10 | XR_ITS ---
[facility] [place] [id number] Patient Name: RACHEL HOLLINGSWORTH MRN: [id number] date: 1935 Sex: M Assigned Patient Location: ER Current Patient Location: ER Accession/Order Number: [id number] Exam Date: 10/20/2023 02:08 Report Date: 10/20/2023 03:13 At the request of: RASHEED MARKER Procedure: XR chest 1V EXAM: XR chest 1V HISTORY: CHEST PAIN, SOB COMPARISON: Chest radiograph dated 05/05/2022. TECHNIQUE: One view of the chest was obtained. FINDINGS: There are postsurgical changes of the chest with median sternotomy wires in place. Surgical clips are seen within the left aspect of the neck. The cardiac silhouette is enlarged. Aortic atherosclerotic disease is seen. There is no significant pneumothorax or pleural effusion. There are mixed interstitial and airspace opacities in the lungs. No acute osseous abnormality is seen. XR/XR chest 1V IMPRESSION: 1. Enlarged cardiac silhouette with mixed interstitial and airspace opacities in the lungs that could represent pulmonary edema and/or multifocal pneumonia. Electronically authenticated by: Mitch BENTLEY Date: 10/20/2023 03:13
[2023-10-20] MEDS: MORPHINE SULFATE 4 MG/ML VIAL IV ×2 (02:25→05:26)
[2023-10-20] MEDS: ONDANSETRON PF 4 MG/2 ML VIAL IV (02:25)
[2023-10-20] MEDS: NITROGLYCERIN 2% 1 GRAM PACKET 1 GM TD (03:17)
[2023-10-20 03:46] LABS: Basophils Absolute Auto 0.1 10^3/uL (0.0-0.1); Basophils Percent Auto 0.9 % (0.2-2.0); Eosinophils Absolute Auto 0.5 10^3/uL (0.0-0.7); Eosinophils Percent Auto 6.7 % (0.9-7.0); Hemoglobin 7.8 g/dL (14.0-18.0); Immature Granulocytes Abs Auto 0.05 10^3/uL (0.00-0.03); Immature Granulocytes Pct Auto 0.7 % (0.0-0.5); Lymphocytes Absolute Auto 1.7 10^3/uL (1.2-3.8); Lymphocytes Percent Auto 22.7 % (20.5-60.0); Mean Corpuscular HGB Conc 32.6 g/dL (29.9-35.2); Mean Corpuscular Volume 94.8 fL (80.0-94.0); Mean Platelet Volume 11.2 fL (9.5-13.5); Monocytes Absolute Auto 0.5 10^3/uL (0.3-0.8); Monocytes Percent Auto 7.1 % (1.7-12.0); Neutrophils Absolute Auto 4.6 10^3/uL (1.4-6.5); Neutrophils Percent Auto 61.9 % (43.0-75.0); Platelet Count 177 10^3/uL (150-450); Red Blood Count 2.52 10^6/uL (4.70-6.10); Red Cell Distribution Width 14.7 % (11.0-15.0); White Blood Count 7.5 10^3/uL (4.0-11.0)
[2023-10-20 03:48] LABS: Hematocrit 23.9 % (42.0-54.0)
[2023-10-20 04:13] LABS: Troponin I High Sensitivity 247.9 pg/mL (4.0-76.1)
[2023-10-20] MEDS: DIPHENHYDRAMINE HCL 25 MG CAPSULE PO (05:26)
[2023-10-20] MEDS: ACETAMINOPHEN 325 MG TABLET 650 MG PO (05:26)
[2023-10-20] MEDS: FUROSEMIDE 40 MG/4 ML VIAL 20 MG IV (05:26)
--- NOTE | 2023-10-20 06:34 | PC.NURSE ---
pt desatted to 85% after morphine administration. 2L Oxygen placed on pt and oxygen sats back up to 98%
[2023-10-20] MEDS: 0.9 % SODIUM CHLORIDE 250 ML 10 ML IV (08:36)
== END 2023-10-20 09:01 | disposition short-term general hospital (02) ==
PROVIDERS: Emergency Provider Emergency Medicine
DX: I24.9 Acute ischemic heart disease, unspecified (principal); I25.10 Atherosclerotic heart disease of native coronary artery without angina pectoris; D64.9 Anemia, unspecified; N17.9 Acute kidney failure, unspecified; Z95.1 Presence of aortocoronary bypass graft; Z95.5 Presence of coronary angioplasty implant and graft; Z86.73 Personal history of transient ischemic attack (TIA), and cerebral infarction without residual deficits
CPT/HCPCS: 36415; 36430; 71045; 80053; 83690; 83880; 84484; 85025; 85610; 86850; 86900; 86901; 93005; 96374; 96375; 96376; 99285; P9016

== ENCOUNTER 2023-11-04 20:21 | Emergency (ER) | payer MEDICARE, SELFPAY ==
[2023-11-04] VITALS (29 sets, daily range): BP systolic 106–134; BP diastolic 58–77; PULSE 68–85; RESP 14; TEMP 35.9; O2SAT 84–96
--- NOTE | 2023-11-04 20:26 | ECG_ITS ---
[facility] Test Date: 2023-11-04 Pat Name: RACHEL HOLLINGSWORTH Department: Room: - Gender: Male Relay Operator: : 1935 Requested By: [id number] Order Number: [id number] Reading MD: KATHE DAVE Measurements Intervals [place] Rate: 82 P: 33 [place]: 218 QRS: -48 QRSD: 146 T: 177 QT: 428 QTc: 466 Interpretive Statements 1100 Sinus rhythm 2231 First degree AV block 2450 Right bundle branch block 2630 Left anterior fascicular block [address] depression, possible subendocardial injury 4364 [place] abnormality, possible anterolateral ischemia 9150 abnormal ECG Electronically Signed On 11-05-2023 6:46:10 EDT by KATHE DAVE
--- NOTE | 2023-11-04 20:26 | ED_ITS ---
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 He states he has been having chest pain for the past 2 weeks. He states he was transferred from this facility to [facility] and due to his renal insufficiency he could not get a cath. He was given new medications. He states he was recently taken off of his blood thinners because of GI bleeding. He denies any GI bleeding at this time. He was given 1 sublingual nitroglycerin at the longterm where he is currently residing. Upon arrival he states he is having 8 out of 10 midsternal chest pain. It does not radiate. He is also short of breath. He denies any dizziness or syncope. He has no abdominal pain or generalized weakness. He has had a stroke in the past but does not have any new or focal neurologic symptoms at this time. Related Data Home Medications ?Medication ?Instructions ?Recorded ?Confirmed amiodarone 200 mg tablet (Pacerone) 200 mg PO DAILY 01/24/23 11/04/23 carvedilol 25 mg tablet (Coreg) 25 mg PO BID 01/24/23 11/04/23 clopidogrel 75 mg tablet (Plavix) 75 mg PO DAILY 01/24/23 11/04/23 fluoxetine 10 mg capsule 10 mg PO DAILY 01/24/23 11/04/23 levothyroxine 75 mcg capsule 75 mcg PO DAILY 01/24/23 11/04/23 nitroglycerin 0.4 mg sublingual 0.4 mg sublingual Q5M PRN chest 01/24/23 11/04/23 tablet pain pantoprazole 40 mg tablet,delayed 40 mg PO Q12H 01/24/23 11/04/23 release (Protonix) tamsulosin 0.4 mg capsule (Flomax) 0.4 mg PO DAILY 01/24/23 11/04/23 amlodipine 5 mg tablet 5 mg PO DAILY 11/04/23 11/04/23 cholecalciferol (vitamin D3) 125 125 mcg PO DAILY 11/04/23 11/04/23 mcg (5,000 unit) capsule finasteride 5 mg tablet 5 mg PO DAILY 11/04/23 11/04/23 hydralazine 25 mg tablet 25 mg PO BID 11/04/23 11/04/23 insulin aspart U-100 100 unit/mL 1 sliding scale dose subcut 11/04/23 11/04/23 (3 mL) subcutaneous pen USEASDIRECTD insulin glargine 100 unit/mL (3 40 unit subcut BID 11/04/23 11/04/23 mL) subcutaneous pen (Basaglar KwikPen U-100 Insulin) isosorbide mononitrate 120 mg 120 mg PO QAM 11/04/23 11/04/23 tablet,extended release 24 hr levothyroxine 125 mcg tablet 125 mcg PO DAILY 11/04/23 11/04/23 (Euthyrox) torsemide 40 mg tablet (Soaanz) 40 mg PO QAM 11/04/23 11/04/23 ipratropium 0.5 mg-albuterol 3 mg 3 ml inhalation TID 11/05/23 11/05/23 (2.5 mg base)/3 mL nebulization soln Previous Rx's ?Medication ?Instructions ?Recorded atorvastatin 80 mg tablet 80 mg PO QPM #30 tabs 01/25/23 Allergies Allergy/AdvReac Type Severity Reaction Status Date / Time codeine Allergy Unknown Verified 11/04/23 20:26 codine Allergy Unknown Uncoded 01/23/23 19:28 Review of Systems ROS Status of ROS 10 or more systems reviewed and unremark able except as noted in history and below [facility] Medical History (Updated 11/05/23 @ 06:33 by Megan Anton MD) Dyslipidemia ?E78.5 - Hyperlipidemia, unspecified (ICD-10) Paroxysmal atrial fibrillation ?I48.0 - Paroxysmal atrial fibrillation (ICD-10) Peripheral vascular disease ?I73.9 - Peripheral vascular disease, unspecified (ICD-10) Anemia in chronic kidney disease (CKD) ?N18.9 - Chronic kidney disease, unspecified (ICD-10) ?D63.1 - Anemia in chronic kidney disease (ICD-10) Stage 3b chronic kidney disease ?N18.32 - Chronic kidney disease, stage 3b (ICD-10) Coronary artery disease ?I25.10 - Atherosclerotic heart disease of [place] coronary artery without an grady pectoris (ICD-10) Type 2 diabetes mellitus with hyperglycemia ?E11.65 - Type 2 diabetes mellitus with hyperglycemia (ICD-10) Chronic heart failure with preserved ejection fraction (HFpEF) ?I50.32 - Chronic diastolic (congestive) heart failure (ICD-10) Acute ischemic vertebrobasilar artery thalamic stroke ?I63.81 - Other cerebral infarction due to occlusion or stenosis of small artery (ICD-10) LILIANA (acute kidney injury) ?N17.9 - Acute kidney failure, unspecified (ICD-10) CHF (congestive heart failure) ?I50.9 - Heart failure, unspecified (ICD-10) Hypertension ?I10 - Essential (primary) hypertension (ICD-10) Diabetes ?E11.9 - Type 2 diabetes mellitus without complications (ICD-10) 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 - Stenosis of other vascular prosthetic devices, implants and grafts, initial encounter (ICD-10) TIA (transient ischemic attack) ?G45.9 - Transient cerebral ischemic attack, unspecified (ICD-10) Surgical History H/O shoulder surgery ?Z98.890 - Other specified postprocedural states (ICD-10) Hip joint replacement by other means ?Z96.649 - Presence of unspecified artificial hip joint (ICD-10) Family History Mother Family history of CHF (congestive heart failure) Family history of hypertension Family history of myocardial infarction Father Family history of CHF (congestive heart failure) Family history of COPD (chronic obstructive pulmonary disease) Family history of cancer Family history of diabetes mellitus Family history of hypertension Family history of myocardial infarction Son Family history of cancer Family history of diabetes mellitus Social History Within the past year, how often did you have a drink containing alcohol: never Within the past year, how often did you have six or more drinks on one occasion: never Score interpretation: A score less than 4 is consistent with normal alcohol consumption. 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 Known occupational exposures/hazards: No Highest level of school completed/degree received: 9th grade Are you now , , , , never or living with a partner: In a typical week, how many times do you talk on the telephone with family, friends, or neighbors: never How often do you get together with friends or relatives: never How often do you attend uatsdin or sabianism services: never Do you belong to any clubs or organizations such as uatsdin groups unions, fraternal or athletic groups, or school groups: no Total score: 0 Score interpretation: A score of less than or equal to 1 indicates the most socially isolated. Little interest or pleasure in doing things: nearly every day Feeling down, depressed, or hopeless: nearly every day Feel stressed/tense/nervous/anxious/difficulty sleeping: only a little Life stressors: recent of family or friend Life stressor details: brothers Do you think of yourself as: straight/heterosexual Gender Identity: male Exam Narrative Exam Narrative: Vital signs and Nursing Notes reviewed: Patient has a normal pulse and blood pressure, he is tachypneic with a respiratory of 26 and hypoxic with pulse ox of 89% on room air General: Awake, alert, nontoxic, moderately overweight pale male resting comfortably on the stretcher, no respiratory distress HEENT: Normocephalic atraumatic, mucous membranes are moist and pink, eyes are clear, normal conjunctiva, vision is grossly intact, posterior pharynx is normal in appearance. Neck: Supple, no meningeal signs, no anterior or posterior cervical lymphadenopathy Chest: Lungs are clear to auscultation with good air entry, there is no wheezing rhonchi or rales appreciated no accessory muscle use, patient is speaking in complete sentences-no chest wall tenderness to palpation CVS: Regular rate and rhythm S1-S2, no murmurs rubs or gallops, pulses are brisk and equal bilaterally ABD: Soft, nondistended, nontender, no rebound guarding or rigidity, bowel sounds are normal, no pulsatile masses appreciated Extremities: Moving all extremities, no lower extremity tenderness or swelling noted, negative Homans' sign, pulses are brisk and equal bilaterally Skin: Normal in appearance without rash,pallor, petechiae or purpura Neuro: No focal deficits, moving all extremities, speech is clear Constitutional Vital Signs, click to edit/add: Last Vital Signs Temp 96.6 F L 11/04/23 20:23 Pulse 77 11/05/23 18:30 Resp 15 11/05/23 18:30 BP 116/67 11/05/23 18:00 Pulse Ox 98 11/05/23 18:30 O2 Del Method Nonrebreather 11/05/23 16:27 O2 Flow Rate 15 11/05/23 16:27 FiO2 80 11/05/23 12:37 Course Vital Signs Vital signs: Vital Signs Blood Pressure 134/77 11/04/23 20:21 Temperature 96.6 F L 11/04/23 20:23 Pulse Rate 77 11/05/23 18:30 Respiratory Rate 15 11/05/23 18:30 Blood Pressure 116/67 11/05/23 18:00 Pulse Oximetry 98 11/05/23 18:30 Oxygen Delivery Method Nonrebreather 11/05/23 16:27 Oxygen Delivery Flow Rate 15 11/05/23 16:27 Fraction of Inspired Oxygen 80 11/05/23 12:37 MDM - Chest Pain MDM Narrative Medical decision making narrative: This 88-year-old male with a history of coronary artery disease, chronic renal disease who was seen in this emergency department on October 19 and transferred to [facility] presents for evaluation of midsternal chest pain. The patient states I am having a heart attack . He states he has been having ongoing chest pain for the past 2 weeks. After being transferred to [facility] he was seen by cardiology and as far as I can tell it was decided that medical management was indicated instead of a cardiac cath due to his renal insufficiency. He was started back on Plavix at that time. He was returned to the extended care facility where he lives locally. Upon arrival an EKG was ordered that is a sinus rhythm with a first-degree AV block with diffuse ST segment depression and elevation in aVR. This was compared to the EKG performed on October 19 and is essentially unchanged. He was medicated with aspirin, 4 mg of morphine and a cardiac workup was ordered. He has an elevated white count at 14.2. Hemoglobin is stable at 8.4. BUN is again elevated at 80 and creatinine is 3.06. This is increased from his previous BUN and creatinine on October 19 when it was 65/3.02. His troponin is elevated today at 190 and delta troponin is 200. BNP is elevated greater than 11,000. Chest x-ray shows pulmonary vascular congestion and pleural effusions. He was given 40 mg of IV Lasix and continually monitored. When he falls asleep his pulse ox drops into the 80s. Blood gas was ordered and shows mild respiratory acidosis with a pH of 3.12 pCO2 of 49 and saturation of 86.4%. He was then placed on BiPAP. I had a discussion with him about his CODE STATUS. I asked him if he would want us to do CPR and put him on a ventilator if his heart should stop or he should stop breathing. He states initially that he does not know how he feels about this and after a more lengthy discussion he admits that he would like to have CPR and be put on a ventilator for a while at least he thinks . His code status will remain unchanged at this time. I have placed a call to [facility] for transfer for this patient. At this time there is a wait for admissions and transfers. He will be kept in the emergency department overnight until further disposition can be made. Case was discussed with the hospitalist who does not feel comfortable keeping in. He was signed out to the incoming physician at 7am. Medical Records Data Medical records narrative: [place] [address] XRay Report Signed Patient: RACHEL HOLLINGSWORTH MR#: [id number] : 1935 Acct:[id number] Age/Sex: 88 / M ADM Date: 11/04/23 Loc: ER Attending Dr: Ordering Physician: Megan Anton Date of Service: 11/04/23 Procedure(s): XR chest 1V Accession Number(s): [id number] cc: Megan Anton; Physician,Non-Staff M.D.~ [facility] [place] [id number] Patient Name: RACHEL HOLLINGSWORTH MRN: [id number] date: 1935 Sex: M Assigned Patient Location: ER Current Patient Location: ED.MAIN Accession/Order Number: [id number] Exam Date: 11/04/2023 20:37 Report Date: 11/04/2023 20:59 At the request of: MEGAN ANTON Procedure: XR chest 1V EXAM: XR chest 1V HISTORY: Chest Pain COMPARISON: 10/20/2023 TECHNIQUE: One view chest FINDINGS: The cardiac mediastinal silhouette is enlarged. There are central vascular engorgement with edema. There is bibasilar atelectasis. There may be small bilateral effusions. There is no pneumothorax. There are median sternotomy wires. There is atherosclerosis of the aortic arch. XR/XR chest 1V IMPRESSION: 1. Cardiomegaly with edema and small bilateral effusions. Electronically authenticated by: DESIREE SILVA Date: 11/04/2023 20:59 Lab Data Labs: Lab Results 11/04/23 11/04/23 11/04/23 Range/Units 20:30 22:57 23:12 WBC 14.2 H (4.0-11.0) 10^3/uL RBC 2.86 L (4.70-6.10) 10^6/uL Hgb 8.4 L (14.0-18.0) g/dL Hct 26.5 L (42.0-54.0) % MCV 92.7 (80.0-94.0) fL MCH 29.4 (25.9-34.0) pg MCHC 31.7 (29.9-35.2) g/dL RDW 14.4 (11.0-15.0) % Plt Count 315 (150-450) 10^3/uL MPV 10.6 (9.5-13.5) fL Neut % (Auto) 76.2 H (43.0-75.0) % Lymph % (Auto) 14.4 L (20.5-60.0) % Mccracken % (Auto) 4.7 (1.7-12.0) % Eos % (Auto) 3.2 (0.9-7.0) % Baso % (Auto) 0.8 (0.2-2.0) % Neut # (Auto) 10.9 H (1.4-6.5) 10^3/uL Lymph # (Auto) 2.1 (1.2-3.8) 10^3/uL Mccracken # (Auto) 0.7 (0.3-0.8) 10^3/uL Eos # (Auto) 0.5 (0.0-0.7) 10^3/uL Baso # (Auto) 0.1 (0.0-0.1) 10^3/uL Abs Immat Gran (auto) 0.10 H (0.00-0.03) 10^3/uL Imm/Tot Granulo (auto) 0.7 H (0.0-0.5) % PT 10.9 (9.0-11.6) sec INR 1.03 Puncture Site R radial ABG pH 7.312 L (7.350-7.450) ABG pCO2 49.4 H (35.0-45.0) mmHg ABG pO2 56.5 L* (80.0-100.0) mmHg ABG HCO3 25.0 (22.0-26.0) mmol/L ABG O2 Saturation 86.7 % ABG Base Excess -1.3 (-2.0-2.0) mmol/L Renard Test Positive (POSITIVE) O2 Liters/Min 8 Sodium 134 L (136-145) mmol/L Potassium 4.9 (3.5-5.1) mmol/L Chloride 100 (98-107) mmol/L Carbon Dioxide 25.8 (21.0-32.0) mmol/L Anion Gap 13.1 BUN 80.0 H* (7.0-18.0) mg/dL Creatinine 3.06 H (0.70-1.30) mg/dL Est GFR ( Amer) 24 L (>=60) Est GFR (Non-Af Amer) 19 L (>=60) BUN/Creatinine Ratio 26.1 Glucose 261 H (74-106) mg/dL Calcium 8.9 (8.5-10.1) mg/dL Total Bilirubin 0.4 (0.2-1.0) mg/dL AST 15 (15-37) U/L ALT 25 (16-63) U/L Alkaline Phosphatase 73 (46-116) U/L Troponin I High Sens 190.1 H* 200.0 H* (4.0-76.1) pg/mL NT-Pro-B Natriuret Pep 44673.0 H* (<=1800.0) pg/mL Total Protein 7.2 (6.4-8.2) g/dL Albumin 2.9 L (3.4-5.0) g/dL Globulin 4.3 g/dL Albumin/Globulin Ratio 0.7 POC Glucose (74-106) mg/dL 11/05/23 11/05/23 11/05/23 Range/Units 02:43 07:07 08:22 WBC (4.0-11.0) 10^3/uL RBC (4.70-6.10) 10^6/uL Hgb (14.0-18.0) g/dL Hct (42.0-54.0) % MCV (80.0-94.0) fL MCH (25.9-34.0) pg MCHC (29.9-35.2) g/dL RDW (11.0-15.0) % Plt Count (150-450) 10^3/uL MPV (9.5-13.5) fL Neut % (Auto) (43.0-75.0) % Lymph % (Auto) (20.5-60.0) % Mccracken % (Auto) (1.7-12.0) % Eos % (Auto) (0.9-7.0) % Baso % (Auto) (0.2-2.0) % Neut # (Auto) (1.4-6.5) 10^3/uL Lymph # (Auto) (1.2-3.8) 10^3/uL Mccracken # (Auto) (0.3-0.8) 10^3/uL Eos # (Auto) (0.0-0.7) 10^3/uL Baso # (Auto) (0.0-0.1) 10^3/uL Abs Immat Gran (auto) (0.00-0.03) 10^3/uL Imm/Tot Granulo (auto) (0.0-0.5) % PT (9.0-11.6) sec INR Puncture Site ABG pH (7.350-7.450) ABG pCO2 (35.0-45.0) mmHg ABG pO2 (80.0-100.0) mmHg ABG HCO3 (22.0-26.0) mmol/L ABG O2 Saturation % ABG Base Excess (-2.0-2.0) mmol/L Renard Test (POSITIVE) O2 Liters/Min Sodium (136-145) mmol/L Potassium (3.5-5.1) mmol/L Chloride (98-107) mmol/L Carbon Dioxide (21.0-32.0) mmol/L Anion Gap BUN (7.0-18.0) mg/dL Creatinine (0.70-1.30) mg/dL Est GFR ( Amer) (>=60) Est GFR (Non-Af Amer) (>=60) BUN/Creatinine Ratio Glucose (74-106) mg/dL Calcium (8.5-10.1) mg/dL Total Bilirubin (0.2-1.0) mg/dL AST (15-37) U/L ALT (16-63) U/L Alkaline Phosphatase (46-116) U/L Troponin I High Sens 220.9 H* 235.9 H* (4.0-76.1) pg/mL NT-Pro-B Natriuret Pep (<=1800.0) pg/mL Total Protein (6.4-8.2) g/dL Albumin (3.4-5.0) g/dL Globulin g/dL Albumin/Globulin Ratio POC Glucose 110 H (74-106) mg/dL 11/05/23 Range/Units 16:03 WBC (4.0-11.0) 10^3/uL RBC (4.70-6.10) 10^6/uL Hgb (14.0-18.0) g/dL Hct (42.0-54.0) % MCV (80.0-94.0) fL MCH (25.9-34.0) pg MCHC (29.9-35.2) g/dL RDW (11.0-15.0) % Plt Count (150-450) 10^3/uL MPV (9.5-13.5) fL Neut % (Auto) (43.0-75.0) % Lymph % (Auto) (20.5-60.0) % Mccracken % (Auto) (1.7-12.0) % Eos % (Auto) (0.9-7.0) % Baso % (Auto) (0.2-2.0) % Neut # (Auto) (1.4-6.5) 10^3/uL Lymph # (Auto) (1.2-3.8) 10^3/uL Mccracken # (Auto) (0.3-0.8) 10^3/uL Eos # (Auto) (0.0-0.7) 10^3/uL Baso # (Auto) (0.0-0.1) 10^3/uL Abs Immat Gran (auto) (0.00-0.03) 10^3/uL Imm/Tot Granulo (auto) (0.0-0.5) % PT (9.0-11.6) sec INR Puncture Site ABG pH (7.350-7.450) ABG pCO2 (35.0-45.0) mmHg ABG pO2 (80.0-100.0) mmHg ABG HCO3 (22.0-26.0) mmol/L ABG O2 Saturation % ABG Base Excess (-2.0-2.0) mmol/L Renard Test (POSITIVE) O2 Liters/Min Sodium (136-145) mmol/L Potassium (3.5-5.1) mmol/L Chloride (98-107) mmol/L Carbon Dioxide (21.0-32.0) mmol/L Anion Gap BUN (7.0-18.0) mg/dL Creatinine (0.70-1.30) mg/dL Est GFR ( Amer) (>=60) Est GFR (Non-Af Amer) (>=60) BUN/Creatinine Ratio Glucose (74-106) mg/dL Calcium (8.5-10.1) mg/dL Total Bilirubin (0.2-1.0) mg/dL AST (15-37) U/L ALT (16-63) U/L Alkaline Phosphatase (46-116) U/L Troponin I High Sens (4.0-76.1) pg/mL NT-Pro-B Natriuret Pep (<=1800.0) pg/mL Total Protein (6.4-8.2) g/dL Albumin (3.4-5.0) g/dL Globulin g/dL Albumin/Globulin Ratio POC Glucose 158 H (74-106) mg/dL ECG Data Attestation: I personally reviewed and interpreted this ECG as follows: (Sinus rhythm at 82 bpm, first-degree AV block, right bundle branch block, left anterior hemiblock, marked ST depression in leads I to V3 V4 V5 V6, ST elevation in aVR, this is compared to EKG from 10/20/2023 and is essentially unchanged.) Prior ECG tracings: available for review (Unchanged since 10/20/2023) Heart Score History: Moderately Suspicious ECG: Sign. ST Depression Age: >65 years Risk Factors: >3 Risk Factors/ HX of CAD:2 Troponin: >3X Normal Limit Total Heart Score Recommendations & Risks:: 9 Critical Care Time Critical Care Time Critical Care Time: Yes Total Critical Care Time: 45 Attestation: . Discharge Plan Discharge Chief Complaint: Chest Pain Clinical Impression: CHF (congestive heart failure), Acute on chronic renal insufficiency, Elevated troponin Patient Disposition: [facility] Time of Disposition Decision: 10:23 Discharge Location: [facility] Condition: Fair Mode of Transportation: EMS Discharge Date/Time: 11/05/23 19:08
--- NOTE | 2023-11-04 20:27 | XR_ITS ---
The [address] [address] Patient Name: RACHEL HOLLINGSWORTH MRN: [id number] date: 1935 Sex: M Assigned Patient Location: ER Current Patient Location: ED.MAIN Accession/Order Number: [id number] Exam Date: 11/04/2023 20:37 Report Date: 11/04/2023 20:59 At the request of: RASHEED MARKER Procedure: XR chest 1V EXAM: XR chest 1V HISTORY: Chest Pain COMPARISON: 10/20/2023 TECHNIQUE: One view chest FINDINGS: The cardiac mediastinal silhouette is enlarged. There are central vascular engorgement with edema. There is bibasilar atelectasis. There may be small bilateral effusions. There is no pneumothorax. There are median sternotomy wires. There is atherosclerosis of the aortic arch. XR/XR chest 1V IMPRESSION: 1. Cardiomegaly with edema and small bilateral effusions. Electronically authenticated by: DESIREE SILVA Date: 11/04/2023 20:59
[2023-11-04 20:42] LABS: Basophils Absolute Auto 0.1 10^3/uL (0.0-0.1); Basophils Percent Auto 0.8 % (0.2-2.0); Eosinophils Absolute Auto 0.5 10^3/uL (0.0-0.7); Eosinophils Percent Auto 3.2 % (0.9-7.0); Hematocrit 26.5 % (42.0-54.0); Hemoglobin 8.4 g/dL (14.0-18.0); Immature Granulocytes Pct Auto 0.7 % (0.0-0.5); Lymphocytes Absolute Auto 2.1 10^3/uL (1.2-3.8); Lymphocytes Percent Auto 14.4 % (20.5-60.0); Mean Corpuscular HGB Conc 31.7 g/dL (29.9-35.2); Mean Corpuscular Hemoglobin 29.4 pg (25.9-34.0); Mean Corpuscular Volume 92.7 fL (80.0-94.0); Mean Platelet Volume 10.6 fL (9.5-13.5); Monocytes Absolute Auto 0.7 10^3/uL (0.3-0.8); Monocytes Percent Auto 4.7 % (1.7-12.0); Neutrophils Absolute Auto 10.9 10^3/uL (1.4-6.5); Neutrophils Percent Auto 76.2 % (43.0-75.0); Platelet Count 315 10^3/uL (150-450); Red Blood Count 2.86 10^6/uL (4.70-6.10); Red Cell Distribution Width 14.4 % (11.0-15.0); White Blood Count 14.2 10^3/uL (4.0-11.0)
[2023-11-04] MEDS: ASPIRIN 81 MG TAB.CHEW 324 MG PO (20:43)
[2023-11-04] MEDS: ONDANSETRON PF 4 MG/2 ML VIAL IV (20:44)
[2023-11-04] MEDS: MORPHINE SULFATE 4 MG/ML VIAL IV (20:44)
--- OUTSIDE RECORDS SUMMARY | 2023-11-04 20:48 | XMS_ITS | CCD ---
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 Felice Alvarado Referring Anita vailable Verónica, Dr. Felice Alvarado Attending Anita vailable Lyons, Dr. Felice Alvarado Attending Anita vailable Nikhil Nino [facility] Care Unavailab le Lyons, Dr. Felice Alvarado Referring Anita vailable BROCK SAMUELS Consulting Unavailable BROCK SAMUELS Attending Unavailable BROCK SAMUELS Admitting Unavailable TRUNG, DR NIKHIL Villareal Primary Care Unavailable ABELARDO, DR JIAN Shields Consulting Unavailable ABELARDO, DR JIAN Shields Attending Unavailable ABELARDO, DR JIAN Shields Admitting Unavailable TRUNG, DR NIKHIL Villareal Primary Care Unavailable KARISHMA, DR JN Villareal Consulting UnavailMACI Toussaint Consulting Unavailable ALEN MARAVILLA Consulting Unavailable ADA NOYOLA Consulting Unavailable RICHARD PAGAN Consulting Unavailable PAT REYNOSO Consulting Unavailable ROD JUSTIN Admitting UnavailROD Collins Attending Unavailmarv NINO, DR NIKHIL Villareal Primary Care Unavailable ROD JUSTIN Consulting Unavailabl e DMITRIY STEELE Admitting Unavailable DMITRIY STEELE Attending Unavailable TRUNG, DR NIKHIL Villareal Primary Care Unavailable JOANN, DR STEVO Hollingsworth Consulting Unavailable IVETTE, DMITRIY Consulting Unavailable ROD JUSTIN Admitting Unavailabl e ROD JUSTIN Attending Unavailabl e FURLONG, DR NIKHIL Villareal Primary Care Unavailable FURLONG, DR NIKHIL Villareal Primary Care Unavailable [facility], ANN Barbour Attending Unavailable ANN ALMODOVAR Admitting Unavailable HIGHLMANDO, ANN Barbour Admitting Unavailable HIGHLMANDO, ANN Barbour Attending Unavailable FURLONG, DR NIKHIL Villareal Primary Care [facility] Admitting [facility] Barbour Attending Unavailable FURLONG, DR [...] FURLONG, DR NIKHIL Villareal Primary Care [facility] Barbour Attending Unavailable ANN ALMODOVAR Admitting Unavailable FURLONG, DR NIKHIL Villareal Primary Care Unavailable [facility], ANN Barbour Attending Unavailable HIGHLANDERANN Admitting Unavailable CLOUGHERTY, VELASCO O Admitting Unavailabl e CLOUGHERTY, ROD O Attending Unavailabl e FURLONG, DR NIKHIL Villareal Primary Care Unavailable CLOUGHERTY, VELASCO O Admitting Unavailabl e CLOUGHERTY, VELASCO O Attending Unavailabl e FURLONG, DR NIKHIL Villareal Primary Care Unavailable FURLONG, DR NIKHIL Villareal Primary Care Un[facility] Barbour Attending Unavailable ANN ALMODOVAR Admitting Unavailable JOANN, DR STEVO Hollingsworth Consulting Unavailable ANABEL, DR RIDLEY Attending Unavailable ANABEL, DR RIDLEY Admitting Unavailable FURLONORMA, DR NIKHIL Villareal Primary Care Unavailable MACI LONDON Consulting Unavailable ANABEL, DR RIDLEY Consulting Unavailable LEAH, DR SHOLA Tolbert Attending Unavailable LEAH, DR SHOLA Tolbert Admitting Unavailable SURAJ, DR SANDOVAL Consulting Unavailable FURLONG, DR NIKHIL Villareal Primary Care Unavailable GARCIAEBER, DR STEVO Hollingsworth Consulting Unavailable LEAH, DR SHOLA Tolbert Consulting Unavailable MIKALA ALBA Consulting Unavailable ALYSON NIETO Consulting Unavailable МАРИНА DAVIS Consulting Unavailable SHARONLONORMA, DR NIKHIL Villareal Primary Care Unavailable МАРИНА DAVIS Attending Unavailable SUSAN, AHMAD Admitting Unavailable CLOUGHERTY, VELASCO O Admitting Unavailmarv e ROD JUSTIN Attending Unavailmarv e TRUNG, DR NIKHIL Villareal Primary Care Unavailable LYONS, DR FELICE De La Cruz Consulting Unavailable FURLONG, DR NIKHIL Villareal Primary Care Unavailable LYONS, DR FELICE De La Cruz Attending Unavailable LYONS, DR FELICE De La Cruz Admitting Unavailable FELICE LYONS Attending Unavailable NIKHIL NINO Primary Care Unavailab le NO FAMILY, PHYSICIAN Primary Care Provider Unava ilable MD Milton Londono Admit Provider MD Scott Delgado Other Provider MD Jamison Gutiérrez Other Provider [phone] MD Brian Mc Other Provider [phone] TONO Wallace Other Provider MD Chelsea Imdon Other Provider DO Ave Cano Other Provider [phone] MD Francia Kirby Attending Provider [phone] Felice Lyons Attending Unavailable NO FAMILY, PHYSICIAN Primary Care Unavailable Felice Lyons Admitting Unavailable Francia Kirby Attending Unavailable NO FAMILY, PHYSICIAN Primary Care Unavailable Scott Delgado Consulting Unavailable Milton Londono Admitting Unavailab le Jamison Gutiérrez Consulting UnavailBrian Castañeda Consulting Unavailable Emiliano Wallace Consulting Unavailable Kirk Tran Consulting Unavailable Ajit Canoe Bernard[place] Consulting Unavailable Allergies Allergy Classification Reported Allergen(s) Allergy Type Date of Onset Reaction(s) Facility Acetaminophen (1 source) Acetaminophen Drug Allergy 4 [facility] Opioid Agonists (1 source) Codeine Drug Allergy 4 Nightmare, bad dreams [facility] (9 sources) Codeine; Translations: [codeine[facility] ([facility] sources) Codeine Drug Allergy 4 [facility] Repository (1 source) Acetaminophen Drug Allergy 4 [facility] Repository (1 source) Codeine Drug Allergy [facility] Repository Medications Current Medications Medication Drug Class(es) Dates Sig (Normalized) Sig (Original) acetaminophen 500 mg oral tablet (1 source) Start: 01-25-2021 take 1000 mg by mouth once daily at bedtime Acetaminophen Active 1000 MG PO Daily at bedtime January 25, 2021 12:00am amiodarone hydrochloride 200 mg oral tablet (10 sources) Antiarrhythmic Start: 12-28-2020 End: 11-30-2021 take 200 mg by mouth once daily Amiodarone Active 200 MG PO Daily December 01, 2021 12:00am amLODIPine 5 mg oral tablet (4 sources) Dihydropyridine Calcium Channel Lizeth Start: 12-01-2021 take 5 mg by mouth once daily Amlodipine Active 5 MG PO Daily December 01, 2021 12:00am Start: 06-10-2020 amLODIPine Bes ylate 5 MG Oral Tablet Quantity: 60 Refills: 0 Ordered: 26-Jul-2020 DO Start : 10-Jun-2020 Complete Start: 06-10-2020 End: 01-25-2021 take 5 mg by mouth twice daily Amlodipine Discontinued 5 MG PO Twice daily 60 June 10, 2020 1:00am January 25, 2021 3:45pm Start: 06-09-2020 End: 06-10-2020 take 5 mg by mouth once daily Amlodipine Discontinued 5 MG PO Daily June 09, 2020 1:00am June 10, 2020 2:31pm carvedilol 25 mg oral tablet (11 sources) alpha-Adrenergic Lizeth, beta-Adrenergic Lizeth Start: 10-22-2023 take 25 mg by mouth after breakfast Carvedilol Active 25 MG PO After breakfast and supper October 22, 2023 12:00am Start: 12-06-2021 End: 10-22-2023 take 12.5 mg by mouth after breakfast Carvedilol Discontinued 12.5 MG PO After breakfast and supper December 06, 2021 1:10pm October 22, 2023 12:52pm Start: 06-09-2020 End: 12-06-2021 take 1 tablet by mouth twice daily Carvedilol 25 MG Oral Tablet TAKE 1 TABLET TWICE DAILY. Quantity: 0 Refills: 0 Ordered: 15-Jan-2021 DO Start : 15-Jan-2021 Active cholecalciferol 0.125 mg oral tablet (2 sources) Vitamin D Start: 01-25-2021 take 1 tablet by mouth once daily Cholecalciferol (Vitamin D3) (Vitamin D3) 125 mcg (5,000 unit) Tablet Active 125 MCG PO Daily January 25, 2021 12:00am Start: 06-09-2020 End: 01-25-2021 take 1 tablet by mouth every week Cholecalciferol (Vitamin D3) (Vitamin D3) 125 mcg (5,000 unit) Tablet Discontinued 41786 UNIT PO every week June 09, 2020 1:00am January 25, 2021 3:49pm ON FRIDAY. clopidogrel 75 mg oral tablet (9 sources) P2Y12 Platelet Inhibitor Start: 05-29-2020 take 75 mg by mouth once daily Clopidogrel Active 75 MG PO Daily June 09, 2020 1:00am Start: 05-29-2020 Clopidogrel Bi sulfate 75 MG Oral Tablet Quantity: 90 Refills: 0 Ordered: 29-May-2020 DO Start : 29-May-2020 Active finasteride 5 mg oral tablet (1 source) 5-alpha Reductase Inhibitor Start: 12-01-2021 take 5 mg by mouth once daily at bedtime Finasteride Active 5 MG PO Daily at bedtime December 01, 2021 12:00am FLUoxetine 10 mg oral capsule (9 sources) Serotonin Reuptake Inhibitor Start: 08-15-2020 take 10 mg by mouth once daily Fluoxetine Active 10 MG PO Daily January 25, 2021 12:00am hydrALAZINE hydrochloride 25 mg oral tablet (4 sources) Arteriolar Vasodilator Start: 10-31-2023 take 25 mg by mouth twice daily Hydralazine Active 25 MG PO Twice daily 60 30 October 31, 2023 12:00am Start: 06-10-2020 hydrALAZINE HC l - 50 MG Oral Tablet Quantity: 60 Refills: 0 Ordered: 26-Jul-2020 DO Start : 10-Jun-2020 Complete Start: 06-10-2020 End: 01-25-2021 take 50 mg by mouth twice daily Hydralazine Discontinued 50 MG PO Twice daily 60 June 10, 2020 1:00am January 25, 2021 3:49pm Start: 06-09-2020 End: 06-10-2020 take 25 mg by mouth twice daily Hydralazine Discontinued 25 MG PO Twice daily June 09, 2020 1:00am June 10, 2020 2:31pm Insulin Aspart U-100 (Novolog Flexpen U-100 Insulin) 100 unit/mL (3 mL) Insulin Pen (1 source) Start: 12-06-2021 Insulin Aspart U-100 (Novolog Flexpen U-100 Insulin) 100 unit/mL (3 mL) Insulin Pen Active 0 UNITS SUBCUT Before meals and at bedtime December 06, 2021 12:00am Insulin Glargine-Yfgn (1 source) Start: 10-22-2023 inject 30 [IU] by subcutaneous injection twice daily Insulin Glargine-Yfgn Active 30 UNIT SUBCUT Twice daily October 22, 2023 12:00am 24 hr isosorbide mononitrate 120 mg extended release oral tablet (3 sources) Nitrate Vasodilator Start: 10-31-2023 take 120 mg by mouth once daily Isosorbide Mononitrate Active 120 MG PO Daily at 599October 31, 2023 12:00am Start: 12-01-2021 End: 10-31-2023 take 60 mg by mouth once daily Isosorbide Mononitrate Discontinued 60 MG PO Daily December 01, 2021 12:00am October 31, 2023 12:54pm Start: 06-09-2020 End: 01-25-2021 take 60 mg by mouth once daily Isosorbide Mononitrate Discontinued 60 MG PO Daily June 09, 2020 1:00am January 25, 2021 3:49pm levothyroxine sodium 0.075 mg oral tablet (13 sources) l-Thyroxine Start: 10-22-2023 take 125 ug by mouth once daily Levothyroxine Active 125 MCG PO Daily at 629October 22, 2023 12:00am Start: 11-30-2021 End: 10-22-2023 take 75 ug by mouth once daily Levothyroxine Discontin ued 75 MCG PO Daily at 629December 06, 2021 1:10pm October 22, 2023 12:52pm Start: 02-22-2021 take 1 tablet by frida th once daily Levothyroxine Sodium 50 MCG Oral Tablet TAKE 1 TABLET DAILY. Quantity: 0 Refills: 0 Ordered: 22-Feb-2021 DO Start : 22-Feb-2021 Active Start: 08-17-2020 End: 11-30-2021 take 25 ug by mouth once daily Levothyroxine Discontin ued 25 MCG PO Daily January 25, 2021 12:00am November 30, 2021 6:12pm take 1 tablet by frida th once daily Levothyroxine Sodium 75 MCG Oral Tablet TAKE 1 TABLET DAILY DIRECTED. Quantity: 90 Refills: 3 Ordered: 02-Jul-2021 DO Active nitroglycerin 0.4 mg sublingual tablet (9 sources) Nitrate Vasodilator Start: 12-11-2020 Nitroglycerin Active 0.4 MG SUBLINGUAL every 5 to 15 minutes January 25, 2021 12:00am pantoprazole 40 mg delayed release oral tablet (12 sources) Proton Pump Inhibitor Start: 10-31-2023 take 40 mg by mouth twice daily Pantoprazole Active 40 MG PO Twice daily October 31, 2023 12:00am Start: 12-11-2020 End: 12-06-2021 take 40 mg by mouth once daily before breakfast Pantoprazole Active 40 MG PO Daily before breakfast December 06, 2021 1:10pm tamsulosin hydrochloride 0.4 mg oral capsule (10 sources) alpha-Adrenergic Lizeth Start: 12-01-2021 take 0.4 mg by mouth once daily Tamsulosin Active 0.4 MG PO Daily December 01, 2021 12:00am Start: 06-09-2020 End: 11-30-2021 take 1 capsule by mouth once daily Tamsulosin HCl - 0.4 MG Oral Capsule 1 cap daily Quantity: 0 Refills: 0 Ordered: 12-Mar-2021 DO Start : 11-Dec-2020 Active torsemide 20 mg oral tablet (1 source) Loop Diuretic Start: 10-31-2023 take 40 mg by mouth once daily Torsemide Active 40 MG PO DAILY@0800 30 October 31, 2023 12:00am Completed/Discontinued Medications Medication Drug Class(es) Dates Sig (Normalized) Sig (Original) amoxicillin 875 mg / clavulanate 125 mg oral tablet (1 source) Penicillin-class Antibacterial Start: 12-05-2020 Amoxicillin-Pot Clavulanate 875-125 MG Oral Tablet Quantity: 14 Refills: 0 Ordered: 09-Dec-2020 DO Start : 05-Dec-2020 Complete apixaban 2.5 mg oral tablet (9 sources) Factor Xa Inhibitor Start: 12-18-2020 End: 10-31-2023 take 1 tablet by mouth twice daily Apixaban (Eliquis) 2.5 mg Tablet Discontinued 2.5 MG PO Twice daily January 25, 2021 12:00am October 31, 2023 12:54pm aspirin 81 mg delayed release oral tablet (1 source) Platelet Aggregation Inhibitor, Nonsteroidal Anti-inflammatory Drug Start: 06-10-2020 End: 01-25-2021 take 81 mg by mouth once daily Aspirin Discontinued 81 MG PO Daily June 10, 2020 1:00am January 25, 2021 3:41pm atorvastatin 80 mg oral tablet (8 sources) HMG-CoA Reductase Inhibitor Start: 06-09-2020 take 1 tablet by mouth at bedtime Atorvastatin Calcium 80 MG Oral Tablet TAKE ONE TABLET BY MOUTH AT BEDTIME Quantity: 90 Refills: 3 Ordered: 29-Aug-2021 Felice Lyons MD Start : 15-Aug-2020 Active bumetanide 1 mg oral tablet (11 sources) Loop Diuretic Start: 10-22-2023 End: 10-31-2023 take 1 mg by mouth twice daily Bumetanide Discontinued 1 MG PO Twice daily October 22, 2023 12:00am October 31, 2023 12:54pm Start: 11-30-2021 End: 12-06-2021 take 1 mg by mouth twice daily Bumetanide Discontinued 1 MG PO Twice daily November 30, 2021 12:00am December 06, 2021 1:10pm Start: 09-18-2021 take 1 tablet by frida th twice daily Bumetanide 1 MG Oral Tablet TAKE 1 TABLET TWICE DAILY. Quantity: 180 Refills: 3 Ordered: 18-Sep-2021 Felice Lyons MD Start : 18-Sep-2021 Active dose increased Start: 01-15-2021 End: 11-30-2021 take 0.5 mg by mouth once daily Bumetanide Discontinue d 0.5 MG PO Daily January 25, 2021 12:00am November 30, 2021 6:13pm Start: 01-15-2021 take 1 tablet by frida th once daily Bumetanide 1 MG Oral Tablet TAKE 1 TABLET DAILY. Quantity: 0 Refills: 0 Ordered: 15-Jan-2021 DO Start : 15-Jan-2021 Active canagliflozin 100 mg oral tablet (9 sources) Sodium-Glucose Cotransporter 2 Inhibitor Start: 09-11-2020 End: 10-31-2023 take 1 tablet by mouth once daily Canagliflozin (Invokana) 100 mg Tablet Discontinued 100 MG PO Daily January 25, 2021 12:00am October 31, 2023 12:54pm digoxin 0.125 mg oral tablet (1 source) Cardiac Glycoside Start: 12-05-2020 Digoxin 125 MCG Oral Tablet Quantity: 30 Refills: 0 Ordered: 09-Dec-2020 DO Start : 05-Dec-2020 Complete ergocalciferol 1.25 mg oral capsule (8 sources) Provitamin D2 Compound Vitamin D (Ergocalciferol) 1.25 MG (38715 UT) Oral Capsule 1 daily Quantity: 0 Refills: 0 Ordered: 20-Mar-2021 DO Active ezetimibe 10 mg oral tablet (2 sources) Dietary Cholesterol Absorption Inhibitor Start: 06-10-2020 Ezetimibe 10 MG Oral Tablet Quantity: 30 Refills: 0 Ordered: 26-Jul-2020 DO Start : 10-Jun-2020 Complete Start: 06-10-2020 End: 01-25-2021 take 1 tablet by mouth once daily Ezetimibe (Zetia) 10 mg tablet Discontinued 10 MG PO Daily June 10, 2020 1:00am January 25, 2021 3:49pm folic acid 1 mg oral tablet (9 sources) Start: 01-25-2021 End: 11-30-2021 take 1 mg by mouth once daily Folic Acid Discontinued 1 MG PO Daily January 25, 2021 12:00am November 30, 2021 6:31pm furosemide 20 mg oral tablet (1 source) Loop Diuretic Start: 08-01-2020 Furosemide 20 MG Oral Tablet Quantity: 30 Refills: 0 Ordered: 01-Aug-2020 DO Start : 01-Aug-2020 Complete glipiZIDE er 10 mg 24 hr extended release oral tablet (2 sources) Sulfonylurea Start: 06-09-2020 End: 01-25-2021 take 10 mg by mouth twice daily Glipizide Discontinued 10 MG PO Twice daily June 09, 2020 1:00am January 25, 2021 3:49pm Start: 05-29-2020 take 1 tablet by frida th every twenty-four hours glipiZIDE ER 10 MG Oral Tablet Extended Release 24 Hour Quantity: 180 Refills: 0 Ordered: 29-May-2020 DO Start : 29-May-2020 Complete hydroCHLOROthiazide 12.5 mg / lisinopril 20 mg oral tablet (2 sources) Thiazide Diuretic, Angiotensin Converting Enzyme Inhibitor Start: 06-09-2020 End: 06-10-2020 take 1 tablet by mouth once daily Lisinopril-Hydrochlorothiazide Discontinued 1 TAB PO Daily June 09, 2020 1:00am June 10, 2020 2:31pm Start: 05-29-2020 Lisinopril-hyd roCHLOROthiazide 20-12.5 MG Oral Tablet Quantity: 90 Refills: 0 Ordered: 29-May-2020 DO Start : 29-May-2020 Complete 3 ml insulin lispro 25 unt/ml / insulin lispro protamine, human 75 unt/ml pen injector (11 sources) Insulin Analog Start: 02-21-2021 HumaLOG Mix 75 /25 KwikPen (75-25) 100 UNIT/ML Subcutaneous Suspension Pen-injector Quantity: 45 Refills: 0 Ordered: 21-Feb-2021 DO Start : 21-Feb-2021 Active Start: 06-09-2020 End: 11-30-2021 Insulin Lispro Protamin-Lisp ro (Humalog Mix 50-50 Insuln U-100) 100 unit/mL (50-50) suspension Discontinued 40 UNIT SUBCUT Before meals June 09, 2020 1:00am November 30, 2021 6:28pm BEFORE MEALS IN AM. Start: 06-09-2020 End: 11-30-2021 Insulin Lispro Protamin-Lisp ro (Humalog Mix 50-50 Insuln U-100) 100 unit/mL (50-50) suspension Discontinued 30 UNIT SUBCUT Bedtime June 09, 2020 1:00am November 30, 2021 6:28pm Start: 05-29-2020 HumaLOG Mix 50 /50 (50-50) 100 UNIT/ML Subcutaneous Suspension Quantity: 30 Refills: 0 Ordered: 24-Aug-2020 DO Start : 29-May-2020 Complete Insulin Lispro Protamin-Lispro (Humalog Mix 75-25 Kwikpen) 100 unit/mL (75-25) Insulin Pen (1 source) Start: 11-30-2021 End: 12-06-2021 Insulin Lispro Protamin-Lispro (Humalog Mix 75-25 Kwikpen) 100 unit/mL (75-25) Insulin Pen Discontinued 30 UNIT SUBCUT Twice daily November 30, 2021 12:00am December 06, 2021 1:10pm lisinopril 20 mg oral tablet (2 sources) Angiotensin Converting Enzyme Inhibitor Start: 06-10-2020 Lisinopril 20 MG Ora l Tablet Quantity: 30 Refills: 0 Ordered: 26-Jul-2020 DO Start : 10-Jun-2020 Complete Start: 06-10-2020 End: 01-25-2021 take 20 mg by mouth once daily Lisinopril Discontinued 20 MG PO Daily June 10, 2020 1:00am January 25, 2021 3:46pm metFORMIN hydrochloride 500 mg oral tablet (9 sources) Biguanide Start: 06-09-2020 End: 12-06-2021 take 500 mg by mouth twice daily Metformin Discontinued 500 MG PO Twice daily June 09, 2020 1:00am December 06, 2021 1:10pm Start: 03-15-2020 take 1 tablet by frida th every twelve hours at mealtime metFORMIN HCl - 500 MG Oral Tablet TAKE 1 TABLET EVERY 12 HOURS WITH FOOD. Quantity: 0 Refills: 0 Ordered: 25-Dec-2020 DO Start : 15-Mar-2020 Active Multivitamin preparation (1 source) Start: 01-25-2021 End: 11-30-2021 take 1 tablet by mouth once daily Multivitamin Discontinued 1 TAB PO Daily January 25, 2021 12:00am November 30, 2021 6:29pm potassium chloride 10 meq extended release oral capsule (10 sources) Start: 12-01-2021 End: 12-06-2021 take 10 mEq by mouth once daily Potassium Chloride Discontinued 10 MEQ PO Daily December 01, 2021 12:00am December 06, 2021 1:10pm Start: 01-15-2021 End: 11-30-2021 take 10 mEq by mouth once daily Potassium Chloride Discontinued 10 MEQ PO Daily January 25, 2021 12:00am November 30, 2021 6:30pm sertraline 50 mg oral tablet (1 source) Serotonin Reuptake Inhibitor Start: 12-01-2021 End: 12-01-2021 take 50 mg by mouth once daily Sertraline Discontinued 50 MG PO Daily December 01, 2021 12:00am December 01, 2021 12:31pm valsartan 80 mg oral tablet (9 sources) Angiotensin 2 Receptor Lizeth Start: 01-25-2021 End: 10-31-2023 take 40 mg by mouth once daily Valsartan Discontinued 40 MG PO Daily January 25, 2021 12:00am October 31, 2023 12:54pm Start: 01-24-2021 take 1 tablet by frida th once daily Valsartan 80 MG Oral Tablet TAKE 1 TABLET DAILY. Quantity: 0 Refills: 0 Ordered: 24-Jan-2021 DO Start : 24-Jan-2021 Active Vitamin B Complex (1 source) Start: 01-25-2021 End: 11-30-2021 take 1 tablet by mouth once daily Vitamin B Complex Discontinued 1 TAB PO Daily January 25, 2021 12:00am November 30, 2021 6:30pm Vitamin B Complex CAPS (8 sources) Vitamin B Comple x CAPS 1 daily Quantity: 0 Refills: 0 Ordered: 20-Mar-2021 DO Active Problems Active Problems Problem Classification Problem Date Documented Date Episodic/Chronic Acute and unspecified renal failure (4 sources) Acute kidney failure, unspecified; Translations: [Acute renal failure syndrome] Onset: 11-22-2021 10-20-2023 Episodic Acute cerebrovascular disease (8 sources) Cerebrovascular accident; Translations: [Cerebral artery occlusion, unspecified with cerebral infarction] Chronic Acute myocardial infarction (3 sources) Myocardial infarction; Translations: [Non-ST elevation (NSTEMI) myocardial infarction] Onset: 10-20-2023 10-20-2023 Chronic Administrative/social admission (1 source) Other reduced mobility; Translations: [Impaired mobility and activities of daily living] 12-06-2021 Episodic Cardiac dysrhythmias (20 sources) Atrial fibrillation; Translations: [Atrial fibrillation] Onset: 05-20-2023 Chronic Chronic kidney disease (18 sources) Chronic kidney disease, unspecified; Translations: [Chronic kidney disease stage 3] Onset: 08-13-2018 10-20-2023 Chronic Chronic kidney disease (2 sources) Chronic kidney disease; Translations: [Chronic kidney disease, stage 3 unspecified] Onset: 08-13-2018 Chronic ulcer of skin (7 sources) 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 breakdown of skin; Translations: [Non-pressure chronic ulcer of other part of right lower leg limited to breakdown of skin] Onset: 07-13-2021 Chronic Congestive heart failure; nonhypertensive (5 sources) Heart failure, unspecified; Translations: [Chronic systolic (congestive) heart failure] Onset: 11-22-2021 10-27-2023 Chronic Coronary atherosclerosis and other heart disease (20 sources) Atherosclerotic heart disease of [place] coronary artery without angina pectoris; Translations: [Coronary arteriosclerosis] Onset: 09-23-2017 Chronic Coronary atherosclerosis and other heart disease (16 sources) Coronary angioplasty status; 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] Onset: 08-13-2018 Episodic Comment on above: Radial to OM also PT CA of LM/OM; Deficiency and other anemia (1 source) Anemia in chronic kidney disease; Translations: [Anemia in chronic kidney disease] Onset: 10-20-2023 Chronic Deficiency and other anemia (3 sources) Anemia, unspecified; Translations: [Anemia, unspecified] Onset: 05-21-2022 10-31-2023 Episodic Deficiency and other anemia (2 sources) Anemia; Translations: [Anemia, unspecified] 10-22-2023 Episodic Deficiency and other anemia (1 source) Other specified anemias; Translations: [Other specified anemias] Onset: 10-20-2023 Episodic Diabetes mellitus with complications (14 sources) Type 2 diabetes mellitus with diabetic chronic kidney disease; Translations: [Type 2 diabetes mellitus with diabetic polyneuropathy] Onset: 11-02-2021 Chronic Diabetes mellitus without complication (12 sources) Type 2 diabetes mellitus without complications; Translations: [Diabetes mellitus] Onset: 08-13-2018 11-30-2021 Chronic Disorders of lipid metabolism (17 sources) Hyperlipidemia, unspecified; Translations: [Hyperlipidemia] Onset: 08-13-2018 Chronic Esophageal disorders (3 sources) Gastroesophageal reflux disease; Translations: [Gastro-esophageal reflux disease without esophagitis] Onset: 10-20-2023 11-30-2021 Chronic Essential hypertension (18 sources) Essential (primary) hypertension; Translations: [Benign essential hypertension] Onset: 09-23-2017 Chronic Fluid and electrolyte disorders (1 source) Dehydration; Translations: [DEHYDRATION] Onset: 05-21-2022 Episodic Hyperplasia of prostate (2 sources) Benign prostatic hyperplasia without lower urinary tract symptoms; Translations: [Benign prostatic hyperplasia] Onset: 05-21-2022 11-30-2021 Chronic Hypertension with complications and secondary hypertension (6 sources) Hypertensive heart and chronic kidney disease with heart failure and stage 1 through stage 4 chronic kidney disease, or unspecified chronic kidney disease; Translations: [Hypertensive heart disease with heart failure] Onset: 03-29-2022 10-20-2023 Chronic Late effects of cerebrovascular disease (1 source) Other sequelae following unspecified cerebrovascular disease; Translations: [OTH SEQUELAE UNS CEREBROVASCULAR DZ] Onset: 03-29-2022 Chronic Malaise and fatigue (1 source) Weakness; Translations: [WEAKNESS] Onset: 05-21-2022 Episodic Mood disorders (1 source) Depressive disorder; Translations: [Depression] 11-30-2021 Chronic Mycoses (4 sources) Tinea pedis; Translations: [TINEA [...] medications] Episodic Other aftercare (3 sources) Other fpc (current) drug therapy; Translations: [OTH RESIDENTIAL CURRENT DRUG THERAPY] Onset: 05-21-2022 Episodic Other aftercare (3 sources) 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; Translations: [RESIDENTIAL CURRENT USE OF INSULIN] Onset: 05-21-2022 Episodic Other aftercare (1 source) 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; Translations: [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 DX] Onset: 05-21-2022 Episodic Other aftercare (1 source) Long-term current use of anticoagulant; Translations: [nursing home (current) use of anticoagulants] 11-30-2021 Episodic Other aftercare (2 sources) 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; Translations: [Long-term (current) use of anticoagulants] Onset: 10-20-2023 10-31-2023 Episodic Other circulatory disease (1 source) Other [...] BRITTANY LW EXT] Onset: 07-13-2021 Chronic Other diseases of veins and lymphatics (1 source) Lymphedema; Translations: [Lymphedema, not elsewhere classified] 05-28-2021 Chronic Other diseases of veins and lymphatics (1 source) Stasis dermatitis; Translations: [Venous insufficiency (chronic) (peripheral)] 11-30-2021 Episodic Other diseases of veins and lymphatics (2 sources) Venous insufficiency (chronic) (peripheral); 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] Onset: 10-20-2023 10-31-2023 Episodic Other injuries and conditions due to external [...] edema; Translations: [LOCALIZED EDEMA] Onset: 03-29-2022 Episodic Residual codes; unclassified (1 source) Noncompliance with treatment; Translations: [Noncompliance] 11-30-2021 Episodic Residual codes; unclassified (1 source) Unable to perform personal care activity; Translations: [Other specified health status] 12-06-2021 Episodic Residual codes; unclassified (1 source) Altered mental status; Translations: [Altered mental status, unspecified] 06-10-2020 Episodic Screening and history of mental health and substance abuse codes (12 sources) Personal history of nicotine dependence; Translations: [Ex-smoker] Onset: 08-13-2018 Episodic Comment on above: quit 1965; Skin and subcutaneous tissue infections (8 sources) Cellulitis of right lower limb; Translations: [Cellulitis of left lower limb] Onset: 10-11-2021 Episodic Thyroid disorders (4 sources) Hypothyroidism, unspecified; Translations: [Hypothyroidism] Onset: 03-29-2022 11-30-2021 Chronic Unclassified (1 source) 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 Onset: 08-13-2018 Unclassified (1 source) CHRN KIDNEY DISEASE STG 3 UNSP; Translations: [CHRN KIDNEY DISEASE STG 3 UNSP] Onset: 05-21-2022 Unclassified (1 source) CONTACT W/AND (SUSP) EXPOS COVID-19; Translations: [CONTACT W/AND (SUSP) EXPOS COVID-19] Onset: 11-22-2021 Viral infection (3 sources) COVID-19; Translations: [COVID-19] Onset: 05-05-2022 Past or Other Problems Problem Classification Problem Date Documented Date Episodic/Chronic Immunizations and screening for infectious disease (1 [...] Test Name Value Interpretation Reference Range Facility Basic Metabolic Panelon Creatinine Clr Calc Pharmacy 20.55 Normal [facility] Comment on above: Result Comment: PERF ORMED BY: [place] [address] PATHOLOGIST SUBSTATION MAINTENANCE TECHNICIAN KARINA JOYNER M.D. Performed By: #### C K, HS TROP #### [facility] [address] [place] [address] [place] GFR/1.73 sq M.predicted MDRD (S/P/Bld) [Vol rate/Area] 20.259 mL/min/{1.73_m2} Normal [facility] Comment on above: Performed By: #### C K, HS TROP #### [place] [address] [place] Calcium [Mass/volume] in Ser um or PlasmaOrdered By: Francia Kirby on 10-31-2023 Calcium [Mass/Vol] 8.7 mg/dL Normal 8.6-10.3 [facility] Comment on above: Performed By: #### C K, HS TROP #### [address] Capillary blood glucose queenie urement by glucometer (mass/volume)Ordered By: Francia Kirby on 10-31-2023 Glucose [Mass/Vol] 298 mg/dL Normal [facility] Comment on above: Random Glucose Refer ence Range is dependent on time and content of last meal. Glucose of more than 200 mg/dL in a nonstressed, ambulatory subject supports the diagnosis of Diabetes Mellitus. Result Comment: [place] Glucose Reference Range is dependent on time and content of last meal. Glucose of more than 200 mg/dL in a nonstressed, ambulatory subject supports the diagnosis of Diabetes Mellitus. Performed By: #### G LULS ####Point of Care testing, Carbon dioxide, total [Moles /volume] in Serum or PlasmaOrdered By: Francia Kirby on 10-31-2023 CO2 [Moles/Vol] 31.5 mmol/L High 21.0-31.0 [facility] Comment on above: Performed By: #### C K, HS TROP #### [address] [place] [address] [place] Chloride [Moles/volume] in S lesley or PlasmaOrdered By: Francia Kirby on 10-31-2023 Chloride [Moles/Vol] 96 mmol/L Low 98-107 [facility] Comment on above: Performed By: #### C K, HS TROP #### [facility] [address] Creatinine [Mass/volume] in Serum or PlasmaOrdered By: Francia Kirby on 10-31-2023 Creatinine [Mass/Vol] 2.92 mg/dL High 0.70-1.30 [facility] Comment on above: Performed By: #### C K, HS TROP #### [facility] [address] Glucose Poct Glucometerson 0 10-31-2023 Commemt1 Glu2: Cleaned Meter Normal [facility] Comment on above: Result Comment: PERF ORMED BY: [place] [address] PATHOLOGIST SUBSTATION MAINTENANCE TECHNICIAN KARINA JOYNER M.D. Performed By: #### G LULS ####Point of Care testing, Commemt1 Glu2: Cleaned Meter Normal [facility] Comment on above: Result Comment: PERF ORMED BY: [place] [address] PATHOLOGIST SUBSTATION MAINTENANCE TECHNICIAN KARINA JOYNER M.D. Performed By: #### G LULS ####Point of Care testing, Glucose [Mass/Vol] 248 mg/dL Normal [facility] Comment on above: Result Comment: [place] Glucose Reference Range is dependent on time and content of last meal. Glucose of more than 200 mg/dL in a nonstressed, ambulatory subject supports the diagnosis of Diabetes Mellitus. Performed By: #### G LULS ####Point of Care testing, Glucose [Mass/volume] in Ser um or PlasmaOrdered By: Francia Kirby on 10-31-2023 Glucose [Mass/Vol] 251 mg/dL High 70-100 [facility] Comment on above: ADA recommended refe rence rangeRandom Glucose Reference Range is dependent on time and content of last meal. Glucose of more than 200 mg/dL in a nonstressed, ambulatory subject supports the diagnosis of Diabetes Mellitus. Result Comment: [place] om Glucose Reference Range is dependent on time and content of last meal. Glucose of more than 200 mg/dL in a nonstressed, ambulatory subject supports the diagnosis of Diabetes Mellitus. ADA recommended reference range Performed By: #### C K, HS TROP #### [facility] [address] No Panel InformationOrdered By: Francia Kirby on 10-31-2023 Bedside Glucose Comment Glu2: cleaned meter [facility] Estimated GFR (CKD-EPI) 20.259 mL/Min [facility] Creatinine Clearance (Chem 20.55 [facility] Potassium [Moles/volume] in Serum or PlasmaOrdered By: Francia Kirby on 10-31-2023 Potassium [Moles/Vol] 4.3 mmol/L Normal 3.5-5.1 [facility] Comment on above: Performed By: #### C K, HS TROP #### [facility] [address] Serum or plasma anion gap de terminationOrdered By: Francia Kirby on 10-31-2023 Anion gap [Moles/Vol] 12.8 mmol/L Normal 6.0-15.0 [facility] Comment on above: Performed By: #### C K, HS TROP #### [facility] [address] [place] [address] [place] Sodium [Moles/volume] in Ser um or PlasmaOrdered By: Francia Kirby on 10-31-2023 Sodium [Moles/Vol] 136 mmol/L Normal 136-145 [facility] Comment on above: Performed By: #### C K, HS TROP #### [facility] [address] Urea nitrogen [Mass/volume] in Serum or PlasmaOrdered By: Francia Kirby on 10-31-2023 Urea nitrogen [Mass/Vol] 78 mg/dL High 7-25 [facility] Comment on above: Performed By: #### C K, HS TROP #### [facility] [address] Basic Metabolic Panelon 0 Anion gap [Moles/Vol] 14.0 mmol/L Normal 6.0-15.0 [facility] Comment on above: Performed By: #### C K, HS TROP #### [facility] [address] [place] [address] [place] Calcium [Mass/Vol] 8.0 mg/dL Low 8.6-10.3 [facility] Comment on above: Performed By: #### C K, HS TROP #### [facility] [address] Chloride [Moles/Vol] 96 mmol/L Low 98-107 [facility] Comment on above: Performed By: #### C K, HS TROP #### [address] CO2 [Moles/Vol] 31.1 mmol/L High 21.0-31.0 [facility] Comment on above: Performed By: #### C K, HS TROP #### [address] Creatinine [Mass/Vol] 3.07 mg/dL High 0.70-1.30 [facility] Comment on above: Performed By: #### C K, HS TROP #### [place] [address] [place] Creatinine Clr Calc Pharmacy 19.39 Normal [facility] Comment on above: Result Comment: PERF ORMED BY: [place] [address] PATHOLOGIST SUBSTATION MAINTENANCE TECHNICIAN KARINA JOYNER M.D. Performed By: #### C K, HS TROP #### [place] [address] [place] GFR/1.73 sq M.predicted MDRD (S/P/Bld) [Vol rate/Area] 19.077 mL/min/{1.73_m2} Normal [facility] Comment on above: Performed By: #### C K, HS TROP #### [facility] [address] Glucose [Mass/Vol] 168 mg/dL High 70-100 [facility] Comment on above: Result Comment: [place] om Glucose Reference Range is dependent on time and content of last meal. Glucose of more than 200 mg/dL in a nonstressed, ambulatory subject supports the diagnosis of Diabetes Mellitus. ADA recommended reference range Performed By: #### C K, HS TROP #### [facility] [address] Potassium [Moles/Vol] 4.1 mmol/L Normal 3.5-5.1 [facility] Comment on above: Performed By: #### C K, HS TROP #### [address] Sodium [Moles/Vol] 137 mmol/L Normal 136-145 [facility] Comment on above: Performed By: #### C K, HS TROP #### [address] Urea nitrogen [Mass/Vol] 87 mg/dL High 7-25 [facility] Comment on above: Performed By: #### C K, HS TROP #### [address] Glucose Poct Glucometerson 0 10-30-2023 Commemt1 Glu2: Cleaned Meter Normal [facility] Comment on above: Result Comment: PERF ORMED BY: [place] [address] PATHOLOGIST SUBSTATION MAINTENANCE TECHNICIAN KARINA JOYNER M.D. Performed By: #### G LULS ####Point of Care testing, Glucose [Mass/Vol] 228 mg/dL Normal [facility] Comment on above: Result Comment: [place] Glucose Reference Range is dependent on time and content of last meal. Glucose of more than 200 mg/dL in a nonstressed, ambulatory subject supports the diagnosis of Diabetes Mellitus. Performed By: #### G LULS ####Point of Care testing, Commemt1 Glu2: Cleaned Meter Normal [facility] Comment on above: Result Comment: PERF ORMED BY: [place] [address] PATHOLOGIST SUBSTATION MAINTENANCE TECHNICIAN KARINA JOYNER M.D. Performed By: #### C K, HS TROP #### [address] Glucose [Mass/Vol] 278 mg/dL Normal [facility] Comment on above: Result Comment: [place] om Glucose Reference Range is dependent on time and content of last meal. Glucose of more than 200 mg/dL in a nonstressed, ambulatory subject supports the diagnosis of Diabetes Mellitus. Performed By: #### C K, HS TROP #### [address] Commemt1 Glu2: Cleaned Meter Normal [facility] Comment on above: Result Comment: PERF ORMED BY: [place] [address] PATHOLOGIST SUBSTATION MAINTENANCE TECHNICIAN KARINA JOYNER M.D. Performed By: #### C K, HS TROP #### [place] [address] [place] Glucose [Mass/Vol] 314 mg/dL Normal [facility] Comment on above: Result Comment: [place] om Glucose Reference Range is dependent on time and content of last meal. Glucose of more than 200 mg/dL in a nonstressed, ambulatory subject supports the diagnosis of Diabetes Mellitus. Performed By: #### C K, HS TROP #### [address] Automated basophil %Ordered By: Francia Kirby on 10-29-2023 Basophils/100 WBC (Bld) 1.1 % Normal . [facility] Comment on above: Performed By: #### B MP, CBC ####[facility] Automated basophil countOrde red By: Francia Kirby on 10-29-2023 Basophils (Bld) [#/Vol] 0.1 10*3/uL Normal 0.0-0.2 [facility] Comment on above: Result Comment: PERF ORMED BY: [facility] [address] [place] [address] PATHOLOGIST SUBSTATION MAINTENANCE TECHNICIAN KARINA JOYNER M.D. Performed By: #### B MP, CBC ####[address] Automated blood monocyte cou ntOrdered By: Francia Kirby on 10-29-2023 Monocytes (Bld) [#/Vol] 0.8 10*3/uL Normal 0.0-0.8 [facility] Comment on above: Performed By: #### B MP, CBC ####[address] Automated eosinophil %Ordere d By: Francia Kirby on 10-29-2023 Eosinophils/100 WBC (Bld) 6.7 % Normal . [facility] Comment on above: Performed By: #### B MP, CBC ####[address] Automated eosinophil countOr dered By: Francia Kirby on 10-29-2023 Eosinophils (Bld) [#/Vol] 0.6 10*3/uL High 0.0-0.45 [facility] Comment on above: Performed By: #### B MP, CBC ####[address] Automated monocyte %Ordered By: Francia Kirby on 10-29-2023 Monocytes/100 WBC (Bld) 8.2 % Normal . [facility] Comment on above: Performed By: #### B MP, CBC ####[address] Automated neutrophil %Ordere d By: Francia Kirby on 10-29-2023 Neutrophils/100 WBC (Bld) 66.6 % Normal . [facility] Comment on above: Performed By: #### B MP, CBC ####[address] Basic Metabolic Panelon Anion gap [Moles/Vol] 15.8 mmol/L High 6.0-15.0 [facility] Comment on above: Performed By: #### B MP, CBC ####[place] [id number] [facility] Calcium [Mass/Vol] 8.9 mg/dL Normal 8.6-10.3 [facility] Comment on above: Performed By: #### B MP, CBC ####[place] [id number] [place] Chloride [Moles/Vol] 95 mmol/L Low 98-107 [facility] Comment on above: Performed By: #### B MP, CBC ####[place] [id number] [facility] CO2 [Moles/Vol] 31.8 mmol/L High 21.0-31.0 [facility] Comment on above: Performed By: #### B MP, CBC ####[place] [id number] [facility] Creatinine [Mass/Vol] 3.32 mg/dL High 0.70-1.30 [facility] Comment on above: Performed By: #### B MP, CBC ####[place] [id number] [place] Creatinine Clr Calc Pharmacy 17.93 Normal [facility] Comment on above: Result Comment: PERF ORMED BY: [place] [address] PATHOLOGIST SUBSTATION MAINTENANCE TECHNICIAN KARINA JOYNER M.D. Performed By: #### B MP, CBC ####[place] [id number] [place] GFR/1.73 sq M.predicted MDRD (S/P/Bld) [Vol rate/Area] 17.367 mL/min/{1.73_m2} Normal [facility] Comment on above: Performed By: #### B MP, CBC ####[address] [address] [place] Glucose [Mass/Vol] 117 mg/dL High 70-100 [facility] Comment on above: Result Comment: [place] Glucose Reference Range is dependent on time and content of last meal. Glucose of more than 200 mg/dL in a nonstressed, ambulatory subject supports the diagnosis of Diabetes Mellitus. ADA recommended reference range Performed By: #### B MP, CBC ####[place] [id number] Potassium [Moles/Vol] 3.6 mmol/L Normal 3.5-5.1 [facility] Comment on above: Performed By: #### B MP, CBC ####[address] Sodium [Moles/Vol] 139 mmol/L Normal 136-145 [facility] Comment on above: Performed By: #### B MP, CBC ####[address] Urea nitrogen [Mass/Vol] 85 mg/dL High 7-25 [facility] Comment on above: Performed By: #### B MP, CBC ####[address] Complete Blood Count Auto Di ffon 10-29-2023 Mean Corpuscular HGB Conc 34.3 g/dL Normal 32.5-35.6 [facility] Comment on above: Performed By: #### B MP, CBC ####[address] NRBC% 0.1 /100{WBC} Normal 0-0.5 [facility] Comment on above: Performed By: #### B MP, CBC ####[address] Erythrocyte distribution wid th [Ratio] by Automated countOrdered By: Francia Kirby on 10-29-2023 Erythrocyte distribution width (RBC) [Ratio] 14.8 % Normal 12.0-14.8 [facility] Comment on above: Performed By: #### B MP, CBC ####[address] Erythrocytes [#/volume] in B lood by Automated countOrdered By: Francia Kirby on 10-29-2023 RBC (Bld) [#/Vol] 2.93 10*6/uL Low 3.90-5.60 [facility] Comment on above: Performed By: #### B MP, CBC ####[facility] [id number] [address] Glucose Poct Glucometerson 0 10-29-2023 Glucose [Mass/Vol] 230 mg/dL Normal [facility] Comment on above: Result Comment: [facility] Glucose Reference Range is dependent on time and content of last meal. Glucose of more than 200 mg/dL in a nonstressed, ambulatory subject supports the diagnosis of Diabetes Mellitus. PERFORMED BY: [place] [address] PATHOLOGIST SUBSTATION MAINTENANCE TECHNICIAN KARINA JOYNER M.D. Performed By: #### G LULS ####Point of Care testing, Commemt1 Glu2: Cleaned Meter Normal [facility] Comment on above: Result Comment: PERF ORMED BY: [facility] [address] [place] [address] PATHOLOGIST SUBSTATION MAINTENANCE TECHNICIAN KARINA JOYNER M.D. Performed By: #### C K, HS TROP #### [address] Glucose [Mass/Vol] 214 mg/dL Normal [facility] Comment on above: Result Comment: [place] Glucose Reference Range is dependent on time and content of last meal. Glucose of more than 200 mg/dL in a nonstressed, ambulatory subject supports the diagnosis of Diabetes Mellitus. Performed By: #### C K, HS TROP #### [address] Commemt1 Glu2: Cleaned Meter Normal [facility] Comment on above: Result Comment: PERF ORMED BY: [place] [address] PATHOLOGIST SUBSTATION MAINTENANCE TECHNICIAN KARINA JOYNER M.D. Performed By: #### G LULS ####Point of Care testing, Glucose [Mass/Vol] 274 mg/dL Normal [facility] Comment on above: Result Comment: [facility] Glucose Reference Range is dependent on time and content of last meal. Glucose of more than 200 mg/dL in a nonstressed, ambulatory subject supports the diagnosis of Diabetes Mellitus. Performed By: #### G SAURAV ####Point of Care testing, Hematocrit [Volume Fraction] of Blood by Automated countOrdered By: Francia Kirby on 10-29-2023 Hematocrit (Bld) [Volume fraction] 26.1 % Low 38.8-50.0 [facility] Comment on above: Performed By: #### B MP, CBC ####[address] Hemoglobin [Mass/volume] in BloodOrdered By: Francia Kirby on 10-29-2023 Hemoglobin (Bld) [Mass/Vol] 8.9 g/dL Low 13.0-17.0 [facility] Comment on above: Performed By: #### B MP, CBC ####[address] Leukocytes [#/volume] correc belinda for nucleated erythrocytes in Blood by Automated counOrdered By: Francia Kirby on 10-29-2023 WBC corrected for nucl RBC Auto (Bld) [#/Vol] 9.4 10*3/uL 4.1-10.5 [facility] Leukocytes [#/volume] in Blo od by Automated countOrdered By: Francia Kirby on 10-29-2023 WBC (Bld) [#/Vol] 9.4 10*3/uL Normal 4.1-10.5 [facility] Comment on above: Performed By: #### B MP, CBC ####[place] [id number] [facility] Lymphocytes [#/volume] in Bl ood by Automated countOrdered By: Francia Kirby on 10-29-2023 Lymphocytes (Bld) [#/Vol] 1.6 10*3/uL Normal 1.00-4.8 [facility] Comment on above: Performed By: #### B MP, CBC ####[place] [id number] [place] Lymphocytes/100 leukocytes i n Blood by Automated countOrdered By: Francia Kirby on 10-29-2023 Lymphocytes/100 WBC (Bld) 17.4 % Normal . [facility] Comment on above: Performed By: #### B MP, CBC ####[facility] [id number] MCH [Entitic mass] by Automa belinda countOrdered By: Francia Kirby on 10-29-2023 MCH (RBC) [Entitic mass] 30.6 pg Normal 27.5-35.2 [facility] Comment on above: Performed By: #### B MP, CBC ####[address] MCHC Auto (RBC) [Mass/Vol]Or dered By: Francia Kirby on 10-29-2023 MCHC (RBC) [Mass/Vol] 34.3 g/dL 32.5-35.6 [facility] MCV [Entitic volume] by Auto mated countOrdered By: Francia Kirby on 10-29-2023 MCV (RBC) [Entitic vol] 89.1 fL Normal 83.5-101 [facility] Comment on above: Performed By: #### B MP, CBC ####[address] Neutrophils [#/volume] in Bl ood by Automated countOrdered By: Francia Kirby on 10-29-2023 Neutrophils (Bld) [#/Vol] 6.3 10*3/uL Normal 1.8-7.7 [facility] Comment on above: Performed By: #### B MP, CBC ####[address] Nucleated erythrocytes [Pres ence] in Blood by Automated countOrdered By: Francia Kirby on 10-29-2023 Nucleated RBC Auto Ql (Bld) 0.1 /100{WBC} 0-0.5 [facility] Platelet mean volume [Entiti c volume] in Blood by Automated countOrdered By: Francia Kirby on 10-29-2023 Platelet mean volume (Bld) [Entitic vol] 8.3 fL Normal 6.6-10.1 [facility] Comment on above: Performed By: #### B MP, CBC ####[facility] [id number] Platelets [#/volume] in Bloo d by Automated countOrdered By: Francia Kirby on 10-29-2023 Platelets (Bld) [#/Vol] 215 10*3/uL Normal 150-450 [facility] Comment on above: Performed By: #### B MP, CBC ####[facility] [place] [address] Basic Metabolic Panelon Anion gap [Moles/Vol] 11.5 mmol/L Normal 6.0-15.0 [facility] Comment on above: Performed By: #### C K, HS TROP #### [facility] [address] Calcium [Mass/Vol] 8.6 mg/dL Normal 8.6-10.3 [facility] Comment on above: Performed By: #### C K, HS TROP #### [facility] [address] Chloride [Moles/Vol] 97 mmol/L Low 98-107 [facility] Comment on above: Performed By: #### C K, HS TROP #### [facility] [address] CO2 [Moles/Vol] 29.8 mmol/L Normal 21.0-31.0 [facility] Comment on above: Performed By: #### C K, HS TROP #### [facility] [address] Creatinine [Mass/Vol] 3.15 mg/dL High 0.70-1.30 [facility] Comment on above: Performed By: #### C K, HS TROP #### [facility] [address] [place] [id number] [facility] Creatinine Clr Calc Pharmacy 19.54 Normal [facility] Comment on above: Result Comment: PERF ORMED BY: [place] [address] PATHOLOGIST SUBSTATION MAINTENANCE TECHNICIAN KARINA JOYNER M.D. Performed By: #### C K, HS TROP #### [place] [address] [place] GFR/1.73 sq M.predicted MDRD (S/P/Bld) [Vol rate/Area] 18.498 mL/min/{1.73_m2} Normal [facility] Comment on above: Performed By: #### C K, HS TROP #### [address] Glucose [Mass/Vol] 62 mg/dL Low 70-100 [facility] Comment on above: Result Comment: [place] Glucose Reference Range is dependent on time and content of last meal. Glucose of more than 200 mg/dL in a nonstressed, ambulatory subject supports the diagnosis of Diabetes Mellitus. ADA recommended reference range Performed By: #### C K, HS TROP #### [address] Potassium [Moles/Vol] 3.3 mmol/L Low 3.5-5.1 [facility] Comment on above: Performed By: #### C K, HS TROP #### [address] Sodium [Moles/Vol] 135 mmol/L Low 136-145 [facility] Comment on above: Performed By: #### C K, HS TROP #### [place] [address] [place] Urea nitrogen [Mass/Vol] 86 mg/dL High 7-25 [facility] Comment on above: Performed By: #### C K, HS TROP #### [address] Complete Blood Count Auto Di ffon 10-28-2023 Basophils (Bld) [#/Vol] 0.1 10*3/uL Normal 0.0-0.2 [facility] Comment on above: Result Comment: PERF ORMED BY: [address] [address] PATHOLOGIST SUBSTATION MAINTENANCE TECHNICIAN KARINA JOYNER M.D. Performed By: #### C K, HS TROP #### [facility] [address] Basophils/100 WBC (Bld) 0.9 % Normal . [facility] Comment on above: Performed By: #### C K, HS TROP #### [facility] [address] [place] [address] [place] Eosinophils (Bld) [#/Vol] 0.4 10*3/uL Normal 0.0-0.45 [facility] Comment on above: Performed By: #### C K, HS TROP #### [facility] [address] Eosinophils/100 WBC (Bld) 5.1 % Normal . [facility] Comment on above: Performed By: #### C K, HS TROP #### [facility] [address] Erythrocyte distribution width (RBC) [Ratio] 14.9 % High 12.0-14.8 [facility] Comment on above: Performed By: #### C K, HS TROP #### [address] Hematocrit (Bld) [Volume fraction] 26.2 % Low 38.8-50.0 [facility] Comment on above: Performed By: #### C K, HS TROP #### [facility] [address] [place] [address] [place] Hemoglobin (Bld) [Mass/Vol] 8.9 g/dL Low 13.0-17.0 [facility] Comment on above: Performed By: #### C K, HS TROP #### [facility] [address] [place] [address] [place] Lymphocytes (Bld) [#/Vol] 1.4 10*3/uL Normal 1.00-4.8 [facility] Comment on above: Performed By: #### C K, HS TROP #### [facility] [address] [place] [address] [place] Lymphocytes/100 WBC (Bld) 17.7 % Normal . [facility] Comment on above: Performed By: #### C K, HS TROP #### [address] MCH (RBC) [Entitic mass] 30.1 pg Normal 27.5-35.2 [facility] Comment on above: Performed By: #### C K, HS TROP #### [address] MCV (RBC) [Entitic vol] 88.7 fL Normal 83.5-101 [facility] Comment on above: Performed By: #### C K, HS TROP #### [address] Mean Corpuscular HGB Conc 33.9 g/dL Normal 32.5-35.6 [facility] Comment on above: Performed By: #### C K, HS TROP #### [address] Monocytes (Bld) [#/Vol] 0.8 10*3/uL Normal 0.0-0.8 [facility] Comment on above: Performed By: #### C K, HS TROP #### [address] Monocytes/100 WBC (Bld) 9.8 % Normal . [facility] Comment on above: Performed By: #### C K, HS TROP #### [address] Neutrophils (Bld) [#/Vol] 5.4 10*3/uL Normal 1.8-7.7 [facility] Comment on above: Performed By: #### C K, HS TROP #### [address] Neutrophils/100 WBC (Bld) 66.5 % Normal . [facility] Comment on above: Performed By: #### C K, HS TROP #### [address] NRBC% 0.1 /100{WBC} Normal 0-0.5 [facility] Comment on above: Performed By: #### C K, HS TROP #### [address] Platelet mean volume (Bld) [Entitic vol] 8.8 fL Normal 6.6-10.1 [facility] Comment on above: Performed By: #### C K, HS TROP #### [address] Platelets (Bld) [#/Vol] 196 10*3/uL Normal 150-450 [facility] Comment on above: Performed By: #### C K, HS TROP #### [address] RBC (Bld) [#/Vol] 2.95 10*6/uL Low 3.90-5.60 [facility] Comment on above: Performed By: #### C K, HS TROP #### [address] WBC (Bld) [#/Vol] 8.2 10*3/uL Normal 4.1-10.5 [facility] Comment on above: Performed By: #### C K, HS TROP #### [address] Glucose Poct Glucometerson 0 10-28-2023 Glucose [Mass/Vol] 218 mg/dL Normal [facility] Comment on above: Result Comment: [facility] Glucose Reference Range is dependent on time and content of last meal. Glucose of more than 200 mg/dL in a nonstressed, ambulatory subject supports the diagnosis of Diabetes Mellitus. PERFORMED BY: [place] [address] PATHOLOGIST SUBSTATION MAINTENANCE TECHNICIAN KARINA JOYNER M.D. Performed By: #### C K, HS TROP #### [address] Commemt1 Glu2: Cleaned Meter Normal [facility] Comment on above: Result Comment: PERF ORMED BY: [address] [address] PATHOLOGIST SUBSTATION MAINTENANCE TECHNICIAN KARINA JOYNER M.D. Performed By: #### G LULS ####Point of Care testing, Glucose [Mass/Vol] 154 mg/dL Normal [facility] Comment on above: Result Comment: [place] om Glucose Reference Range is dependent on time and content of last meal. Glucose of more than 200 mg/dL in a nonstressed, ambulatory subject supports the diagnosis of Diabetes Mellitus. Performed By: #### G LULS ####Point of Care testing, Commemt1 Glu2: Cleaned Meter Normal [facility] Comment on above: Result Comment: PERF ORMED BY: [place] [phone] PATHOLOGIST SUBSTATION MAINTENANCE TECHNICIAN KARINA JOYNER M.D. Performed By: #### G LULS ####Point of Care testing, Glucose [Mass/Vol] 306 mg/dL Normal [facility] Comment on above: Result Comment: [place] om Glucose Reference Range is dependent on time and content of last meal. Glucose of more than 200 mg/dL in a nonstressed, ambulatory subject supports the diagnosis of Diabetes Mellitus. Performed By: #### G LULS ####Point of Care testing, Glucose [Mass/Vol] 129 mg/dL Normal [facility] Comment on above: Result Comment: [place] om Glucose Reference Range is dependent on time and content of last meal. Glucose of more than 200 mg/dL in a nonstressed, ambulatory subject supports the diagnosis of Diabetes Mellitus. PERFORMED BY: [place] [address] PATHOLOGIST SUBSTATION MAINTENANCE TECHNICIAN KARINA JOYNER M.D. Performed By: #### P TT #### [address] BNP ser/plasOrdered By: Tom Kelly on 10-27-2023 Natriuretic peptide B (Bld) [Mass/Vol] 1983.0 pg/mL High 5-100 [facility] Comment on above: Result Comment: PERF ORMED BY: [place] [phone] PATHOLOGIST SUBSTATION MAINTENANCE TECHNICIAN KARINA JOYNER M.D. Performed By: #### P TT #### [address] [address] [facility] Basic Metabolic Panelon 06-0 Anion gap [Moles/Vol] 14.3 mmol/L Normal 6.0-15.0 [facility] Comment on above: Performed By: #### G LULS #### Point of Care testing , Calcium [Mass/Vol] 8.1 mg/dL Low 8.6-10.3 [facility] Comment on above: Performed By: #### G LULS #### Point of Care testing , Chloride [Moles/Vol] 98 mmol/L Normal 98-107 [facility] Comment on above: Performed By: #### G LULS #### Point of Care testing , CO2 [Moles/Vol] 26.6 mmol/L Normal 21.0-31.0 [facility] Comment on above: Performed By: #### G LULS #### Point of Care testing , Creatinine [Mass/Vol] 3.43 mg/dL High 0.70-1.30 [facility] Comment on above: Performed By: #### G LULS #### Point of Care testing , Creatinine Clr Calc Pharmacy 17.92 Normal [facility] Comment on above: Result Comment: PERF ORMED BY: [place] [address] PATHOLOGIST SUBSTATION MAINTENANCE TECHNICIAN KARINA JOYNER M.D. Performed By: #### G LULS #### Point of Care testing , GFR/1.73 sq M.predicted MDRD (S/P/Bld) [Vol rate/Area] 16.701 mL/min/{1.73_m2} Normal [facility] Comment on above: Performed By: #### G LULS #### Point of Care testing , Glucose [Mass/Vol] 143 mg/dL High 70-100 [facility] Comment on above: Result Comment: [place] Glucose Reference Range is dependent on time and content of last meal. Glucose of more than 200 mg/dL in a nonstressed, ambulatory subject supports the diagnosis of Diabetes Mellitus. ADA recommended reference range Performed By: #### G LULS #### Point of Care testing , Potassium [Moles/Vol] 3.9 mmol/L Normal 3.5-5.1 [facility] Comment on above: Performed By: #### G LULS #### Point of Care testing , Sodium [Moles/Vol] 135 mmol/L Low 136-145 [facility] Comment on above: Performed By: #### G LULS #### Point of Care testing , Urea nitrogen [Mass/Vol] 84 mg/dL High 7-25 [facility] Comment on above: Performed By: #### G LULS #### Point of Care testing , Glucose Poct Glucometerson 0 10-27-2023 Glucose [Mass/Vol] 300 mg/dL Normal [facility] Comment on above: Result Comment: [facility] Glucose Reference Range is dependent on time and content of last meal. Glucose of more than 200 mg/dL in a nonstressed, ambulatory subject supports the diagnosis of Diabetes Mellitus. PERFORMED BY: [place] [address] PATHOLOGIST SUBSTATION MAINTENANCE TECHNICIAN KARINA JOYNER M.D. Performed By: #### G LULS ####Point of Care testing, Commemt1 Glu2: Cleaned Meter Normal [facility] Comment on above: Result Comment: PERF ORMED BY: [place] [address] PATHOLOGIST SUBSTATION MAINTENANCE TECHNICIAN KARINA JOYNER M.D. Performed By: #### G LULS ####Point of Care testing, Glucose [Mass/Vol] 236 mg/dL Normal [facility] Comment on above: Result Comment: [place] Glucose Reference Range is dependent on time and content of last meal. Glucose of more than 200 mg/dL in a nonstressed, ambulatory subject supports the diagnosis of Diabetes Mellitus. Performed By: #### G LULS ####Point of Care testing, Commemt1 Glu2: Cleaned Meter Normal [facility] Comment on above: Result Comment: PERF ORMED BY: [place] [address] PATHOLOGIST SUBSTATION MAINTENANCE TECHNICIAN KARINA JOYNER M.D. Performed By: #### P TT #### [address] Glucose [Mass/Vol] 247 mg/dL Normal [facility] Comment on above: Result Comment: [place] om Glucose Reference Range is dependent on time and content of last meal. Glucose of more than 200 mg/dL in a nonstressed, ambulatory subject supports the diagnosis of Diabetes Mellitus. Performed By: #### P TT #### [address] Commemt1 Glu2: Cleaned Meter Normal [facility] Comment on above: Result Comment: PERF ORMED BY: [place] [address] PATHOLOGIST SUBSTATION MAINTENANCE TECHNICIAN KARINA JOYNER M.D. Performed By: #### P TT #### [address] Glucose [Mass/Vol] 135 mg/dL Normal [facility] Comment on above: Result Comment: [place] om Glucose Reference Range is dependent on time and content of last meal. Glucose of more than 200 mg/dL in a nonstressed, ambulatory subject supports the diagnosis of Diabetes Mellitus. Performed By: #### P TT #### [address] Hemogram CBC Without Diffon 10-27-2023 Erythrocyte distribution width (RBC) [Ratio] 14.6 % Normal 12.0-14.8 [facility] Comment on above: Order Comment: ORIGI NAL SAMPLE CLOTTED. REDRAW REQUESTED. NOTIFIED HERLINDA IN 4P Performed By: #### C K, HS TROP #### [place] [address] [place] Hematocrit (Bld) [Volume fraction] 26.4 % Low 38.8-50.0 [facility] Comment on above: Order Comment: ORIGI NAL SAMPLE CLOTTED. REDRAW REQUESTED. NOTIFIED HERLINDA IN 4P Performed By: #### C K, HS TROP #### [address] Hemoglobin (Bld) [Mass/Vol] 9.0 g/dL Low 13.0-17.0 [facility] Comment on above: Order Comment: ORIGI NAL SAMPLE CLOTTED. REDRAW REQUESTED. NOTIFIED HERLINDA IN 4P Performed By: #### C K, HS TROP #### [address] MCH (RBC) [Entitic mass] 30.4 pg Normal 27.5-35.2 [facility] Comment on above: Order Comment: ORIGI NAL SAMPLE CLOTTED. REDRAW REQUESTED. NOTIFIED HERLINDA IN 4P Performed By: #### C K, HS TROP #### [address] MCV (RBC) [Entitic vol] 89.2 fL Normal 83.5-101 [facility] Comment on above: Order Comment: ORIGI NAL SAMPLE CLOTTED. REDRAW REQUESTED. NOTIFIED HERLINDA IN 4P Performed By: #### C K, HS TROP #### [address] Mean Corpuscular HGB Conc 34.1 g/dL Normal 32.5-35.6 [facility] Comment on above: Order Comment: ORIGI NAL SAMPLE CLOTTED. REDRAW REQUESTED. NOTIFIED HERLINDA IN 4P Performed By: #### C K, HS TROP #### [address] Platelet mean volume (Bld) [Entitic vol] 9.4 fL Normal 6.6-10.1 [facility] Comment on above: Order Comment: ORIGI NAL SAMPLE CLOTTED. REDRAW REQUESTED. NOTIFIED HERLINDA IN 4P Result Comment: PERF ORMED BY: [place] [address] PATHOLOGIST SUBSTATION MAINTENANCE TECHNICIAN KARINA JOYNER M.D. Performed By: #### C K, HS TROP #### [place] [address] [place] Platelets (Bld) [#/Vol] 175 10*3/uL Normal 150-450 [facility] Comment on above: Order Comment: ORIGI NAL SAMPLE CLOTTED. REDRAW REQUESTED. NOTIFIED HERLINDA IN 4P Performed By: #### C K, HS TROP #### [facility] [address] RBC (Bld) [#/Vol] 2.96 10*6/uL Low 3.90-5.60 [facility] Comment on above: Order Comment: ORIGI NAL SAMPLE CLOTTED. REDRAW REQUESTED. NOTIFIED HERLINDA IN 4P Performed By: #### C K, HS TROP #### [facility] [address] [place] [address] [place] WBC (Bld) [#/Vol] 8.9 10*3/uL Normal 4.1-10.5 [facility] Comment on above: Order Comment: ORIGI NAL SAMPLE CLOTTED. REDRAW REQUESTED. NOTIFIED HERLINDA IN 4P Performed By: #### C K, HS TROP #### [facility] [address] [place] [address] [place] XR chest 1V portableon 10-26 XR chest 1V portable [facility] [place] [address] [place] [address] XRay Report Signed Patient: Rachel Hollingsworth SR MR#: [id number] : 1935 Acct:[id number] Age/Sex: 88 / M ADM Date: 10/20/23 Loc: Room: [address] [place] [address] Type: ADM IN Attending Dr: Francia Kirby MD Copies to: MD Tom Call MD Ordering Provider: Tom Kelly MD Date of Service: 10/27/23 XR/XR chest 1V portable: hypoxia PORTABLE AP ERECT CHEST 1010 hours CLINICAL HISTORY: Hypoxia COMPARISON: 10/24/2023 Median sternotomy wires are present. There is slight elevation of the right hemidiaphragm. Increasing bilateral groundglass density is noted, left slightly greater than right. The left hemidiaphragm is not well seen and this could be due to adjacent parenchymal change however pleural effusion is not excluded without a lateral view. No pneumothorax is noted. The heart is borderline prominent. Mild degenerative changes are seen at the spine. XR/XR chest 1V portable IMPRESSION: INCREASING PARENCHYMAL CHANGES. LEFT PLEURAL EFFUSION IS NOT EXCLUDED. BORDERLINE CARDIOMEGALY. Impression dictated by: Amber Archibald M.D.10/27/2023 10:24 AM Dictation Location: [place] [address] Transcribed By: [facility] 10/27/23 1024 Dictated By: Amber Archibald MD 10/27/23 1021 Signed By: 10/27/23 1024 Normal [facility] Basic Metabolic Panelon Anion gap [Moles/Vol] 16.1 mmol/L High 6.0-15.0 [facility] e [facility] Comment on above: Performed By: #### G LULS #### Point of Care testing , Calcium [Mass/Vol] 8.3 mg/dL Low 8.6-10.3 [facility] Comment on above: Performed By: #### G LULS #### Point of Care testing , Chloride [Moles/Vol] 95 mmol/L Low 98-107 [facility] Comment on above: Performed By: #### G LULS #### Point of Care testing , CO2 [Moles/Vol] 25.5 mmol/L Normal 21.0-31.0 [facility] Comment on above: Performed By: #### G LULS #### Point of Care testing , Creatinine [Mass/Vol] 3.47 mg/dL High 0.70-1.30 [facility] Comment on above: Performed By: #### G LULS #### Point of Care testing , Creatinine Clr Calc Pharmacy 17.86 Normal [facility] Comment on above: Result Comment: PERF ORMED BY: [place] [address] [place] [address] PATHOLOGIST SUBSTATION MAINTENANCE TECHNICIAN KARINA JOYNER M.D. Performed By: #### G LULS #### Point of Care testing , GFR/1.73 sq M.predicted MDRD (S/P/Bld) [Vol rate/Area] 16.470 mL/min/{1.73_m2} Normal [facility] Comment on above: Performed By: #### G LULS #### Point of Care testing , Glucose [Mass/Vol] 118 mg/dL High 70-100 [facility] Comment on above: Result Comment: [place] Glucose Reference Range is dependent on time and content of last meal. Glucose of more than 200 mg/dL in a nonstressed, ambulatory subject supports the diagnosis of Diabetes Mellitus. ADA recommended reference range Performed By: #### G LULS #### Point of Care testing , Potassium [Moles/Vol] 3.6 mmol/L Normal 3.5-5.1 [facility] Comment on above: Performed By: #### G LULS #### Point of Care testing , Sodium [Moles/Vol] 133 mmol/L Low 136-145 [facility] Comment on above: Performed By: #### G LULS #### Point of Care testing , Urea nitrogen [Mass/Vol] 80 mg/dL High 7-25 [facility] Later [facility] Comment on above: Performed By: #### G LULS #### Point of Care testing , Complete Blood Count Auto Di ffon 10-26-2023 Basophils (Bld) [#/Vol] 0.1 10*3/uL Normal 0.0-0.2 [facility] Comment on above: Result Comment: PERF ORMED BY: [place] [address] PATHOLOGIST SUBSTATION MAINTENANCE TECHNICIAN KARINA JOYNER M.D. Performed By: #### H S TROP, CK #### [place] [address] [place] Basophils/100 WBC (Bld) 0.7 % Normal . T he [facility] Comment on above: Performed By: #### H S TROP, CK #### [address] Eosinophils (Bld) [#/Vol] 0.4 10*3/uL Normal 0.0-0.45 [facility] Comment on above: Performed By: #### H S TROP, CK #### [address] Eosinophils/100 WBC (Bld) 4.5 % Normal . [facility] Comment on above: Performed By: #### H Amita FORD, CK #### [address] Erythrocyte distribution width (RBC) [Ratio] 14.9 % High 12.0-14.8 [facility] Comment on above: Performed By: #### H Amita FORD, CK #### [address] Hematocrit (Bld) [Volume fraction] 27.1 % Low 38.8-50.0 [facility] Comment on above: Performed By: #### H Amita FORD, CK #### [address] Hemoglobin (Bld) [Mass/Vol] 9.4 g/dL Low 13.0-17.0 [facility] Comment on above: Performed By: #### Magno FORD, CK #### [address] Lymphocytes (Bld) [#/Vol] 1.2 10*3/uL Normal 1.00-4.8 [facility] Comment on above: Performed By: #### Magno FORD, CK #### [address] Lymphocytes/100 WBC (Bld) 14.8 % Normal . [facility] Comment on above: Performed By: #### H Amita FORD, CK #### [address] MCH (RBC) [Entitic mass] 30.6 pg Normal 27.5-35.2 [facility] Comment on above: Performed By: #### H Amita FORD, CK #### [address] MCV (RBC) [Entitic vol] 88.3 fL Normal 83.5-101 T he [facility] Comment on above: Performed By: #### H Amita FORD, CK #### [address] [place] [address] [place] Mean Corpuscular HGB Conc 34.6 g/dL Normal 32.5-35.6 [facility] Comment on above: Performed By: #### H Amita TROP, CK #### [address] Monocytes (Bld) [#/Vol] 0.8 10*3/uL Normal 0.0-0.8 [facility] Comment on above: Performed By: #### H Amita TROP, CK #### [place] [address] [place] Monocytes/100 WBC (Bld) 10.0 % Normal . T jose [facility] Comment on above: Performed By: #### H Amita FORD, CK #### [address] Neutrophils (Bld) [#/Vol] 5.6 10*3/uL Normal 1.8-7.7 [facility] Comment on above: Performed By: #### Magno FORD, CK #### [address] Neutrophils/100 WBC (Bld) 70.0 % Normal . [facility] Comment on above: Performed By: #### Magno FORD, CK #### [address] NRBC% 0.2 /100{WBC} Normal 0-0.5 [facility] Comment on above: Performed By: #### H Amita FORD, CK #### [address] Platelet mean volume (Bld) [Entitic vol] 9.3 fL Normal 6.6-10.1 [facility] Comment on above: Performed By: #### Magno Levi TROP, CK #### [place] [address] [place] Platelets (Bld) [#/Vol] 162 10*3/uL Normal 150-450 [facility] Comment on above: Performed By: #### Magno FORD, CK #### [address] [place] [address] [place] RBC (Bld) [#/Vol] 3.06 10*6/uL Low 3.90-5.60 [facility] Comment on above: Performed By: #### H S TROP, CK #### [facility] [address] WBC (Bld) [#/Vol] 8.0 10*3/uL Normal 4.1-10.5 [facility] Comment on above: Performed By: #### H S TROP, CK #### [address] Glucose Poct Glucometerson 0 10-26-2023 Glucose [Mass/Vol] 219 mg/dL Normal [facility] Comment on above: Result Comment: [facility] Glucose Reference Range is dependent on time and content of last meal. Glucose of more than 200 mg/dL in a nonstressed, ambulatory subject supports the diagnosis of Diabetes Mellitus. PERFORMED BY: [place] [address] PATHOLOGIST SUBSTATION MAINTENANCE TECHNICIAN KARINA JOYENR M.D. Performed By: #### G LULS #### Point of Care testing , Glucose [Mass/Vol] 228 mg/dL Normal [facility] Comment on above: Result Comment: [facility] Glucose Reference Range is dependent on time and content of last meal. Glucose of more than 200 mg/dL in a nonstressed, ambulatory subject supports the diagnosis of Diabetes Mellitus. PERFORMED BY: [place] [address] PATHOLOGIST SUBSTATION MAINTENANCE TECHNICIAN KARINA JOYNER M.D. Performed By: #### P TT #### [address] Glucose [Mass/Vol] 218 mg/dL Normal [facility] Comment on above: Result Comment: [facility] Glucose Reference Range is dependent on time and content of last meal. Glucose of more than 200 mg/dL in a nonstressed, ambulatory subject supports the diagnosis of Diabetes Mellitus. PERFORMED BY: [place] [address] PATHOLOGIST SUBSTATION MAINTENANCE TECHNICIAN KARINA JOYNER M.D. Performed By: #### G LULS ####Point of Care testing, Glucose [Mass/Vol] 148 mg/dL Normal [facility] Comment on above: Result Comment: [facility] Glucose Reference Range is dependent on time and content of last meal. Glucose of more than 200 mg/dL in a nonstressed, ambulatory subject supports the diagnosis of Diabetes Mellitus. PERFORMED BY: [facility] [address] [place] [id number] PATHOLOGIST SUBSTATION MAINTENANCE TECHNICIAN KARINA JOYNER M.D. Performed By: #### G SAURAV #### Point of Care testing , Albumin [Mass/volume] in Ser um or Plasma by Bromocresol green (BCG) dye binding methoOrdered By: Scott Delgado on 10-25-2023 Albumin BCG dye [Mass/Vol] 3.1 g/dL 3.5-5.7 [facility] Complete Blood Count Auto Di ffon 10-25-2023 Basophils (Bld) [#/Vol] 0.1 10*3/uL Normal 0.0-0.2 [facility] Comment on above: Result Comment: PERF ORMED BY: [facility] [address] [place] [place] [id number] PATHOLOGIST SUBSTATION MAINTENANCE TECHNICIAN KARINA JOYNER M.D. Performed By: #### C BC ####[address] [address] [place] Basophils/100 WBC (Bld) 0.7 % Normal . T jose [facility] Comment on above: Performed By: #### C BC ####[address] [address] [place] Eosinophils (Bld) [#/Vol] 0.4 10*3/uL Normal 0.0-0.45 [facility] Comment on above: Performed By: #### C BC ####[address] [address] [place] Eosinophils/100 WBC (Bld) 4.3 % Normal . [facility] Comment on above: Performed By: #### C BC ####[address] Erythrocyte distribution width (RBC) [Ratio] 15.0 % High 12.0-14.8 [facility] Comment on above: Performed By: #### C BC ####[address] Hematocrit (Bld) [Volume fraction] 23.9 % Low 38.8-50.0 [facility] Comment on above: Performed By: #### C BC ####[address] Hemoglobin (Bld) [Mass/Vol] 8.2 g/dL Low 13.0-17.0 [facility] Comment on above: Performed By: #### C BC ####[address] Lymphocytes (Bld) [#/Vol] 1.4 10*3/uL Normal 1.00-4.8 [facility] Comment on above: Performed By: #### C BC ####[address] Lymphocytes/100 WBC (Bld) 16.2 % Normal . [facility] Comment on above: Performed By: #### C BC ####[address] MCH (RBC) [Entitic mass] 30.6 pg Normal 27.5-35.2 [facility] Comment on above: Performed By: #### C BC ####[address] MCV (RBC) [Entitic vol] 89.7 fL Normal 83.5-101 T he [facility] Comment on above: Performed By: #### C BC ####[address] Mean Corpuscular HGB Conc 34.1 g/dL Normal 32.5-35.6 [facility] Comment on above: Performed By: #### C BC ####[address] Monocytes (Bld) [#/Vol] 1.1 10*3/uL High 0.0-0.8 [facility] Comment on above: Performed By: #### C BC ####[address] Monocytes/100 WBC (Bld) 13.0 % Normal . T he [facility] Comment on above: Performed By: #### C BC ####[address] Neutrophils (Bld) [#/Vol] 5.7 10*3/uL Normal 1.8-7.7 [facility] Comment on above: Performed By: #### C BC ####[address] Neutrophils/100 WBC (Bld) 65.8 % Normal . [facility] Comment on above: Performed By: #### C BC ####[address] NRBC% 0.1 /100{WBC} Normal 0-0.5 [facility] Comment on above: Performed By: #### C BC ####[address] Platelet mean volume (Bld) [Entitic vol] 9.2 fL Normal 6.6-10.1 [facility] Comment on above: Performed By: #### C BC ####[address] Platelets (Bld) [#/Vol] 140 10*3/uL Low 150-450 [facility] Comment on above: Performed By: #### C BC ####[address] RBC (Bld) [#/Vol] 2.67 10*6/uL Low 3.90-5.60 [facility] Comment on above: Performed By: #### C BC ####[address] WBC (Bld) [#/Vol] 8.7 10*3/uL Normal 4.1-10.5 [facility] Comment on above: Performed By: #### C BC ####[facility] [place] [address] [place] Glucose Poct Glucometerson 0 10-25-2023 Glucose [Mass/Vol] 249 mg/dL Normal [facility] Comment on above: Result Comment: [place] Glucose Reference Range is dependent on time and content of last meal. Glucose of more than 200 mg/dL in a nonstressed, ambulatory subject supports the diagnosis of Diabetes Mellitus. PERFORMED BY: [place] [address] PATHOLOGIST SUBSTATION MAINTENANCE TECHNICIAN KARINA JOYNER M.D. Performed By: #### P TT #### [address] [address] [place] Glucose [Mass/Vol] 288 mg/dL Normal [facility] Comment on above: Result Comment: [place] Glucose Reference Range is dependent on time and content of last meal. Glucose of more than 200 mg/dL in a nonstressed, ambulatory subject supports the diagnosis of Diabetes Mellitus. PERFORMED BY: [address] [address] PATHOLOGIST SUBSTATION MAINTENANCE TECHNICIAN KARINA JOYNER M.D. Performed By: #### P TT #### [facility] [address] [place] [address] [place] Glucose [Mass/Vol] 238 mg/dL Normal [facility] Comment on above: Result Comment: [place] Glucose Reference Range is dependent on time and content of last meal. Glucose of more than 200 mg/dL in a nonstressed, ambulatory subject supports the diagnosis of Diabetes Mellitus. PERFORMED BY: [address] [address] PATHOLOGIST SUBSTATION MAINTENANCE TECHNICIAN KARINA JOYNER M.D. Performed By: #### P TT #### [facility] [address] [place] [address] [place] Glucose [Mass/Vol] 118 mg/dL Normal [facility] Comment on above: Result Comment: [place] Glucose Reference Range is dependent on time and content of last meal. Glucose of more than 200 mg/dL in a nonstressed, ambulatory subject supports the diagnosis of Diabetes Mellitus. PERFORMED BY: [place] [address] PATHOLOGIST SUBSTATION MAINTENANCE TECHNICIAN KARINA JOYNER M.D. Performed By: #### P TT #### [address] Glucose [Mass/Vol] 112 mg/dL Normal [facility] Comment on above: Result Comment: [facility] Glucose Reference Range is dependent on time and content of last meal. Glucose of more than 200 mg/dL in a nonstressed, ambulatory subject supports the diagnosis of Diabetes Mellitus. PERFORMED BY: [place] [address] PATHOLOGIST SUBSTATION MAINTENANCE TECHNICIAN KARINA JOYNER M.D. Performed By: #### P TT #### [address] Phosphate [Mass/volume] in S lesley or PlasmaOrdered By: Scott Delgado on 10-25-2023 Phosphate [Mass/Vol] 5.7 mg/dL High 2.5-4.5 [facility] Comment on above: Performed By: #### R ENAL ####[address] Redraw Potassiumon 4 Potassium [Moles/Vol] 3.8 mmol/L Normal 3.5-5.1 [facility] Comment on above: Result Comment: PERF ORMED BY: [place] [address] PATHOLOGIST SUBSTATION MAINTENANCE TECHNICIAN KARINA JOYNER M.D. Performed By: #### H S TROP, CK #### [address] Renal Function Panelon 10-24 Albumin [Mass/Vol] 3.1 g/dL Low 3.5-5.7 [facility] Comment on above: Performed By: #### R ENAL ####[address] Anion gap [Moles/Vol] Not performed Normal 6.0-15.0 [facility] Comment on above: Performed By: #### R ENAL ####[place] [id number] [facility] Calcium [Mass/Vol] 8.1 mg/dL Low 8.6-10.3 [facility] Comment on above: Performed By: #### R ENAL ####[place] [id number] [facility] Chloride [Moles/Vol] 98 mmol/L Normal 98-107 [facility] Comment on above: Performed By: #### R ENAL ####[place] [id number] [facility] CO2 [Moles/Vol] 25.4 mmol/L Normal 21.0-31.0 [facility] Comment on above: Performed By: #### R ENAL ####[place] [id number] [facility] Creatinine [Mass/Vol] 3.53 mg/dL High 0.70-1.30 [facility] Comment on above: Performed By: #### R ENAL ####[place] [id number] [place] Creatinine Clr Calc Pharmacy 17.26 Normal [facility] Comment on above: Result Comment: PERF ORMED BY: [facility] [address] [facility] [place] [id number] PATHOLOGIST SUBSTATION MAINTENANCE TECHNICIAN KARINA JOYNER M.D. Performed By: #### R ENAL ####[place] [id number] [facility] GFR/1.73 sq M.predicted MDRD (S/P/Bld) [Vol rate/Area] 16.135 mL/min/{1.73_m2} Normal [facility] Comment on above: Performed By: #### R ENAL ####[place] [id number] [facility] Glucose [Mass/Vol] 65 mg/dL Low 70-100 [facility] Comment on above: Result Comment: [place] Glucose Reference Range is dependent on time and content of last meal. Glucose of more than 200 mg/dL in a nonstressed, ambulatory subject supports the diagnosis of Diabetes Mellitus. ADA recommended reference range Performed By: #### R ENAL ####[place] [id number] [address] Potassium Normal 3.5-5.1 [facility] Comment on above: Result Comment: Spec imen hemolyzed, redraw requested Results called at 0526 on 10/25/23 Performed By: #### R ENAL ####[address] Sodium [Moles/Vol] 134 mmol/L Low 136-145 [facility] Comment on above: Performed By: #### R ENAL ####[address] Urea nitrogen [Mass/Vol] 76 mg/dL High 7-25 [facility] Comment on above: Performed By: #### R ENAL ####[address] Absolute reticulocyte countO rdered By: Brian Mc on 10-24-2023 Reticulocytes (Bld) [#/Vol] 0.103 10*6/uL 0.024-0.08 4 [facility] Complete Blood Count Auto Di ffon 10-24-2023 Basophils (Bld) [#/Vol] 0.1 10*3/uL Normal 0.0-0.2 [facility] Comment on above: Result Comment: PERF ORMED BY: [facility] [address] [place] [id number] PATHOLOGIST SUBSTATION MAINTENANCE TECHNICIAN KARINA JOYNER M.D. Performed By: #### G LULS #### Point of Care testing , Basophils/100 WBC (Bld) 0.8 % Normal . T he [facility] Comment on above: Performed By: #### G LULS #### Point of Care testing , Eosinophils (Bld) [#/Vol] 0.1 10*3/uL Normal 0.0-0.45 [facility] Comment on above: Performed By: #### G LULS #### Point of Care testing , Eosinophils/100 WBC (Bld) 0.8 % Normal . [facility] Comment on above: Performed By: #### G LULS #### Point of Care testing , Erythrocyte distribution width (RBC) [Ratio] 15.0 % High 12.0-14.8 [facility] Comment on above: Performed By: #### G LULS #### Point of Care testing , Hematocrit (Bld) [Volume fraction] 22.0 % Low 38.8-50.0 [facility] Comment on above: Performed By: #### G LULS #### Point of Care testing , Hemoglobin (Bld) [Mass/Vol] 7.4 g/dL Low 13.0-17.0 [facility] Comment on above: Performed By: #### G LULS #### Point of Care testing , Lymphocytes (Bld) [#/Vol] 1.1 10*3/uL Normal 1.00-4.8 [facility] Comment on above: Performed By: #### G LULS #### Point of Care testing , Lymphocytes/100 WBC (Bld) 14.3 % Normal . [facility] Comment on above: Performed By: #### G LULS #### Point of Care testing , MCH (RBC) [Entitic mass] 30.4 pg Normal 27.5-35.2 [facility] Comment on above: Performed By: #### G LULS #### Point of Care testing , MCV (RBC) [Entitic vol] 89.9 fL Normal 83.5-101 T he [facility] Comment on above: Performed By: #### G LULS #### Point of Care testing , Mean Corpuscular HGB Conc 33.8 g/dL Normal 32.5-35.6 [facility] Comment on above: Performed By: #### G LULS #### Point of Care testing , Monocytes (Bld) [#/Vol] 1.0 10*3/uL High 0.0-0.8 [facility] Comment on above: Performed By: #### G LULS #### Point of Care testing , Monocytes/100 WBC (Bld) 13.5 % Normal . T he [facility] Comment on above: Performed By: #### G LULS #### Point of Care testing , Neutrophils (Bld) [#/Vol] 5.3 10*3/uL Normal 1.8-7.7 [facility] Comment on above: Performed By: #### G LULS #### Point of Care testing , Neutrophils/100 WBC (Bld) 70.6 % Normal . [facility] Comment on above: Performed By: #### G LULS #### Point of Care testing , NRBC% 0.1 /100{WBC} Normal 0-0.5 [facility] Comment on above: Performed By: #### G LULS #### Point of Care testing , Platelet mean volume (Bld) [Entitic vol] 9.2 fL Normal 6.6-10.1 [facility] Comment on above: Performed By: #### G LULS #### Point of Care testing , Platelets (Bld) [#/Vol] 148 10*3/uL Low 150-450 [facility] Comment on above: Performed By: #### G LULS #### Point of Care testing , RBC (Bld) [#/Vol] 2.45 10*6/uL Low 3.90-5.60 [facility] Comment on above: Performed By: #### G LULS #### Point of Care testing , WBC (Bld) [#/Vol] 7.5 10*3/uL Normal 4.1-10.5 [facility] Comment on above: Performed By: #### G LULS #### Point of Care testing , Basophils (Bld) [#/Vol] 0.0 10*3/uL Normal 0.0-0.2 [facility] Comment on above: Result Comment: PERF ORMED BY: [facility] [address] [place] [address] PATHOLOGIST SUBSTATION MAINTENANCE TECHNICIAN KARINA JOYNER M.D. Performed By: #### C BC ####[address] Basophils/100 WBC (Bld) 0.6 % Normal . T [facility] Comment on above: Performed By: #### C BC ####[address] Eosinophils (Bld) [#/Vol] 0.0 10*3/uL Normal 0.0-0.45 [facility] Comment on above: Performed By: #### C BC ####[address] Eosinophils/100 WBC (Bld) 0.0 % Normal . [facility] Comment on above: Performed By: #### C BC ####[address] Erythrocyte distribution width (RBC) [Ratio] 15.4 % High 12.0-14.8 [facility] Comment on above: Performed By: #### C BC ####[address] Hematocrit (Bld) [Volume fraction] 23.4 % Low 38.8-50.0 [facility] Comment on above: Performed By: #### C BC ####[address] Hemoglobin (Bld) [Mass/Vol] 8.0 g/dL Low 13.0-17.0 [facility] Comment on above: Performed By: #### C BC ####[address] Lymphocytes (Bld) [#/Vol] 0.8 10*3/uL Low 1.00-4.8 [facility] Comment on above: Performed By: #### C BC ####[address] Lymphocytes/100 WBC (Bld) 10.1 % Normal . [facility] Comment on above: Performed By: #### C BC ####[address] MCH (RBC) [Entitic mass] 30.9 pg Normal 27.5-35.2 [facility] Comment on above: Performed By: #### C BC ####[address] MCV (RBC) [Entitic vol] 90.3 fL Normal 83.5-101 [facility] Comment on above: Performed By: #### C BC ####[address] Mean Corpuscular HGB Conc 34.2 g/dL Normal 32.5-35.6 [facility] Comment on above: Performed By: #### C BC ####[address] Monocytes (Bld) [#/Vol] 1.1 10*3/uL High 0.0-0.8 [facility] Comment on above: Performed By: #### C BC ####[address] Monocytes/100 WBC (Bld) 13.1 % Normal . [facility] Comment on above: Performed By: #### C BC ####[address] Neutrophils (Bld) [#/Vol] 6.3 10*3/uL Normal 1.8-7.7 [facility] Comment on above: Performed By: #### C BC ####[address] Neutrophils/100 WBC (Bld) 76.2 % Normal . [facility] Comment on above: Performed By: #### C BC ####[address] NRBC% 0.1 /100{WBC} Normal 0-0.5 [facility] Comment on above: Performed By: #### C BC ####[address] Platelet mean volume (Bld) [Entitic vol] 9.3 fL Normal 6.6-10.1 [facility] Comment on above: Performed By: #### C BC ####[address] [place] [address] [facility] Platelets (Bld) [#/Vol] 155 10*3/uL Normal 150-450 [facility] Comment on above: Performed By: #### C BC ####[address] [place] [address] [facility] RBC (Bld) [#/Vol] 2.59 10*6/uL Low 3.90-5.60 [facility] Comment on above: Performed By: #### C BC ####[address] [place] [address] [facility] WBC (Bld) [#/Vol] 8.2 10*3/uL Normal 4.1-10.5 [facility] Comment on above: Performed By: #### C BC ####[address] [address] [facility] ECG 12 lead ECGon 10-24-2023 ECG 12 lead ECG [facility] [place] [address] Electrocardiograph Report Signed Patient: Rachel Hollingsworth MR#: [id number] : 1935 Acct:[id number] Age/Sex: 88 / M ADM Date: 10/20/23 Loc: Room: [address] [place] [address] Type: ADM IN Attending Dr: Norman Figueroa DO Ordering Provider: Arabella Durand APRN Date of Service: 10/24/23 ECG/ECG 12 lead ECG: Possible change on heart monitor Copies to: Test Reason : Blood Pressure : / mmHG Vent. Rate : 086 BPM Atrial Rate : 086 BPM P-R Int : 196 ms QRS Dur : 144 ms QT Int : 386 ms P-R-T Axes : 036 -41 148 degrees QTc Int : 461 ms Normal sinus rhythm Left axis deviation Right bundle branch block Left ventricular hypertrophy with QRS widening and repolarization abnormality Abnormal ECG When compared with ECG of 24-OCT-2023 00:18, (Unconfirmed) No significant change was found Confirmed by Benjamin Mora ([id number]) on 10/24/2023 4:58:07 PM Referred By: Electronically Signed By:Benjamin Mora Transcribed By: MUS Signed By Benjamin Mora MD 10/24/23 1658 Normal [facility] Ferritin [Mass/volume] in Se rum or PlasmaOrdered By: Brian Mc on 10-24-2023 Ferritin [Mass/Vol] 59.6 ng/mL Normal 23.9-336.2 [facility] Comment on above: Result Comment: PERF ORMED BY: [facility] [address] [place] [address] PATHOLOGIST SUBSTATION MAINTENANCE TECHNICIAN KARINA JOYNER M.D. Performed By: #### G LULS #### Point of Care testing , Glucose Poct Glucometerson 0 10-24-2023 Glucose [Mass/Vol] 152 mg/dL Normal [facility] Comment on above: Result Comment: [facility] Glucose Reference Range is dependent on time and content of last meal. Glucose of more than 200 mg/dL in a nonstressed, ambulatory subject supports the diagnosis of Diabetes Mellitus. PERFORMED BY: [facility] [address] [place] [address] PATHOLOGIST SUBSTATION MAINTENANCE TECHNICIAN KARINA JOYNER M.D. Performed By: #### G LULS #### Point of Care testing , Glucose [Mass/Vol] 193 mg/dL Normal [facility] Comment on above: Result Comment: [place] Glucose Reference Range is dependent on time and content of last meal. Glucose of more than 200 mg/dL in a nonstressed, ambulatory subject supports the diagnosis of Diabetes Mellitus. PERFORMED BY: [facility] [address] [place] [address] PATHOLOGIST SUBSTATION MAINTENANCE TECHNICIAN KARINA JOYNER M.D. Performed By: #### G LULS #### Point of Care testing , Glucose [Mass/Vol] 183 mg/dL Normal [facility] Comment on above: Result Comment: [place] Glucose Reference Range is dependent on time and content of last meal. Glucose of more than 200 mg/dL in a nonstressed, ambulatory subject supports the diagnosis of Diabetes Mellitus. PERFORMED BY: [facility] [address] [place] [address] PATHOLOGIST SUBSTATION MAINTENANCE TECHNICIAN KARINA JOYNER M.D. Performed By: #### G LULS #### Point of Care testing , Haptoglobinon 10-24-2023 Haptoglobin 309 mg/dL High 44-215 [facility] Comment on above: Result Comment: PERF ORMED BY: [facility] [address] [place] [address] PATHOLOGIST SUBSTATION MAINTENANCE TECHNICIAN KARINA JOYNER M.D. Performed By: #### G LULS #### Point of Care testing , Haptoglobin [Mass/volume] in Serum or PlasmaOrdered By: Brian Mc on 10-24-2023 Haptoglobin [Mass/Vol] 309 mg/dL 44-215 [facility] Iron [Mass/volume] in Serum or PlasmaOrdered By: Brian Mc on 10-24-2023 Iron [Mass/Vol] 11 ug/dL Low 50-212 [facility] Comment on above: Performed By: #### G LULS #### Point of Care testing , Iron and TIBC Profileon 09-25 % Iron Saturation 4.1 % Low 20-50 [facility] Comment on above: Performed By: #### G LULS #### Point of Care testing , Total Iron Binding Capacity 266 ug/dL Normal 255-450 [facility] Comment on above: Performed By: #### G LULS #### Point of Care testing , Iron binding capacity [Mass/ volume] in Serum or PlasmaOrdered By: Brian Mc on 10-24-2023 Iron binding capacity [Mass/Vol] 266 ug/dL 255-450 [facility] Iron saturation [Mass Fracti on] in Serum or PlasmaOrdered By: Brian Mc on 10-24-2023 Iron saturation [Mass fraction] 4.1 % 20-50 [facility] LDH Lactate Dehydrogenaseon 10-24-2023 LDH Lactate Dehydrogenase 304 U/L High 140-271 [facility] Comment on above: Performed By: #### G LULS #### Point of Care testing , Lactate dehydrogenase [Enzym atic activity/volume] in Serum or Plasma by Lactate to pyOrdered By: Brian Mc on 10-24-2023 LDH Lactate to pyruvate reaction [Catalytic activity/Vol] 304 U/L 140-271 [facility] Renal Function Panelon 10-23 Albumin [Mass/Vol] 3.5 g/dL Normal 3.5-5.7 [facility] Comment on above: Performed By: #### G LULS #### Point of Care testing , Anion gap [Moles/Vol] 16.2 mmol/L High 6.0-15.0 [facility] Comment on above: Performed By: #### G LULS #### Point of Care testing , Calcium [Mass/Vol] 8.8 mg/dL Normal 8.6-10.3 [facility] Comment on above: Performed By: #### G LULS #### Point of Care testing , Chloride [Moles/Vol] 100 mmol/L Normal 98-107 [facility] Comment on above: Performed By: #### G LULS #### Point of Care testing , CO2 [Moles/Vol] 24.7 mmol/L Normal 21.0-31.0 [facility] Comment on above: Performed By: #### G LULS #### Point of Care testing , Creatinine [Mass/Vol] 3.34 mg/dL Significan t change up 0.70-1.30 [facility] Comment on above: Performed By: #### G LULS #### Point of Care testing , Creatinine Clr Calc Pharmacy 18.24 Normal [facility] Comment on above: Result Comment: PERF ORMED BY: [facility] [place] [address] PATHOLOGIST SUBSTATION MAINTENANCE TECHNICIAN KARINA JOYNER M.D. Performed By: #### G LULS #### Point of Care testing , GFR/1.73 sq M.predicted MDRD (S/P/Bld) [Vol rate/Area] 17.242 mL/min/{1.73_m2} Normal [facility] Comment on above: Performed By: #### G LULS #### Point of Care testing , Glucose [Mass/Vol] 124 mg/dL High 70-100 [facility] Comment on above: Result Comment: [facility] Glucose Reference Range is dependent on time and content of last meal. Glucose of more than 200 mg/dL in a nonstressed, ambulatory subject supports the diagnosis of Diabetes Mellitus. ADA recommended reference range Performed By: #### G LULS #### Point of Care testing , Phosphate [Mass/Vol] 5.0 mg/dL High 2.5-4.5 [facility] Comment on above: Performed By: #### G LULS #### Point of Care testing , Potassium [Moles/Vol] 3.9 mmol/L Normal 3.5-5.1 [facility] Comment on above: Performed By: #### G LULS #### Point of Care testing , Sodium [Moles/Vol] 137 mmol/L Normal 136-145 [facility] Comment on above: Performed By: #### G LULS #### Point of Care testing , Urea nitrogen [Mass/Vol] 63 mg/dL High 7-25 [facility] Comment on above: Performed By: #### G LULS #### Point of Care testing , Reticulocyte Counton 024 Reticulocyte Number 0.103 10*6/uL High 0.024-0 .08 4 [facility] Comment on above: Result Comment: PERF ORMED BY: [address] [place] [address] PATHOLOGIST SUBSTATION MAINTENANCE TECHNICIAN KARINA JOYNER M.D. Performed By: #### G LULS #### Point of Care testing , Reticulocyte Percent 3.9 % High 0.5-1.5 [facility] Comment on above: Performed By: #### G LULS #### Point of Care testing , Reticulocytes/100 RBC Auto ( Bld)Ordered By: Brian Mc on 10-24-2023 Reticulocytes/100 RBC (Bld) 3.9 % 0.5-1.5 [facility] Transferrin [Mass/volume] in Serum or PlasmaOrdered By: Brian Mc on 10-24-2023 Transferrin [Mass/Vol] 190 mg/dL Low 203-362 [facility] Comment on above: Performed By: #### G LULS #### Point of Care testing , XR chest 1V portableon 10-23 XR chest 1V portable [facility] Main [address] [address] XRay Report Signed Patient: Rachel Hollingsworth SR MR#: [id number] : 1935 Acct:[id number] Age/Sex: 88 / M ADM Date: 10/20/23 Loc: 4P Room: [address] [place] [address] Type: ADM IN Attending Dr: Norman Figueroa DO Copies to: Norman Figueroa DO Ordering Provider: Norman Figueroa DO Date of Service: 10/24/23 XR/XR chest 1V portable: follow up resp failure SINGLE VIEW CHEST CLINICAL HISTORY: Follow-up respiratory failure COMPARISON: Chest 10/24/2023 FINDINGS: Sternotomy wires are noted. Heart and mediastinal structures appear unchanged. Degree of vascular congestion and bibasilar atelectasis is unchanged. No new consolidation pneumothorax pleural effusion or free air. XR/XR chest 1V portable IMPRESSION: NO SIGNIFICANT CHANGE IN CHEST FINDINGS. Impression dictated by: Carlton Simon Jr., D.OAdriel10/24/2023 3:16 PM Dictation Location: [place] [address] Transcribed By: [facility] 10/24/23 1516 Dictated By: Carlton Simon Jr, DO 10/24/23 151 Signed By: 10/24/23 1516 Normal [facility] XR chest 1V portable [facility] Main [address] [address] XRay Report Signed Patient: Rachel Hollingsworth SR MR#: [id number] : 1935 Acct:[id number] Age/Sex: 88 / M ADM Date: 10/20/23 Loc: 4 Room: [address] [place] [address] Type: ADM IN Attending Dr: Francia Kirby MD Copies to: MD Ruby Call MD Ordering Provider: Ruby Ogden MD Date of Service: 10/24/23 XR/XR chest 1V portable: f/u CHF PORTABLE AP ERECT CHEST 0527 hours CLINICAL HISTORY: Shortness of breath. COMPARISON: 10/23/2023 Median sternotomy wires are present. There is shallow inspiration. Mild atelectatic and/or infiltrative changes are seen bilaterally. Interstitial changes have improved. There is no sizable effusion or pneumothorax. There is endplate spurring. There is also mild degenerative change at the left shoulder. XR/XR chest 1V portable IMPRESSION: RESIDUAL ATELECTASIS AND/OR INFILTRATE. Impression dictated by: Amber Archibald M.D.10/24/2023 7:06 AM Dictation Location: [place] [address] Transcribed By: [facility] 10/24/23705 Dictated By: Amber Archibald MD 10/24/23702 Signed By: 10/24/23705 Normal [facility] ABO/Rh Retypeon 10-23-2023 ABO/RH Recheck Result Positive Normal [facility] Comment on above: Result Comment: PERF ORMED BY: [place] [address] PATHOLOGIST SUBSTATION MAINTENANCE TECHNICIAN KARINA JOYNER M.D. Anisocytosis [Presence] in B lood by Light microscopyOrdered By: Sidney Chapman on 10-23-2023 Anisocytosis Ql (Bld) Slight Normal [facility] Comment on above: Performed By: #### H S TROP, CK #### [address] Complete Blood Count Auto Di ffon 10-23-2023 Basophils (Bld) [#/Vol] 0.0 10*3/uL Normal 0.0-0.2 [facility] Comment on above: Result Comment: PERF ORMED BY: [place] [address] PATHOLOGIST SUBSTATION MAINTENANCE TECHNICIAN KARINA JOYNER M.D. Performed By: #### H S TROP, CK #### [address] Basophils/100 WBC (Bld) 0.6 % Normal . [facility] Comment on above: Performed By: #### H S TROP, CK #### [address] Eosinophils (Bld) [#/Vol] 0.2 10*3/uL Normal 0.0-0.45 [facility] Comment on above: Performed By: #### H S TROP, CK #### [address] Eosinophils/100 WBC (Bld) 2.5 % Normal . [facility] Comment on above: Performed By: #### H S TROP, CK #### [address] Erythrocyte distribution width (RBC) [Ratio] 15.7 % High 12.0-14.8 [facility] Comment on above: Performed By: #### H S TROP, CK #### [address] Hematocrit (Bld) [Volume fraction] 24.4 % Low 38.8-50.0 [facility] Comment on above: Performed By: #### H S TROP, CK #### [address] Hemoglobin (Bld) [Mass/Vol] 8.3 g/dL Low 13.0-17.0 [facility] Comment on above: Performed By: #### H S TROP, CK #### [address] Lymphocytes (Bld) [#/Vol] 1.1 10*3/uL Normal 1.00-4.8 [facility] Comment on above: Performed By: #### H S TROP, CK #### [address] Lymphocytes/100 WBC (Bld) 13.0 % Normal . [facility] Comment on above: Performed By: #### H S TROP, CK #### [address] MCH (RBC) [Entitic mass] 30.8 pg Normal 27.5-35.2 [facility] Comment on above: Performed By: #### H S TROP, CK #### [address] MCV (RBC) [Entitic vol] 90.5 fL Normal 83.5-101 [facility] Comment on above: Performed By: #### H S TROP, CK #### [address] Mean Corpuscular HGB Conc 34.0 g/dL Normal 32.5-35.6 [facility] Comment on above: Performed By: #### H S TROP, CK #### [address] Monocytes (Bld) [#/Vol] 0.8 10*3/uL Normal 0.0-0.8 [facility] Comment on above: Performed By: #### H S TROP, CK #### [address] Monocytes/100 WBC (Bld) 9.3 % Normal . [facility] Comment on above: Performed By: #### H S TROP, CK #### [address] Neutrophils (Bld) [#/Vol] 6.6 10*3/uL Normal 1.8-7.7 [facility] Comment on above: Performed By: #### H S TROP, CK #### [address] Neutrophils/100 WBC (Bld) 74.6 % Normal . [facility] Comment on above: Performed By: #### H S TROP, CK #### [address] NRBC% 0.0 /100{WBC} Normal 0-0.5 [facility] Comment on above: Performed By: #### H S TROP, CK #### [address] Platelet mean volume (Bld) [Entitic vol] 9.1 fL Normal 6.6-10.1 [facility] Comment on above: Performed By: #### H S TROP, CK #### [address] Platelets (Bld) [#/Vol] 158 10*3/uL Normal 150-450 [facility] Comment on above: Performed By: #### H S TROP, CK #### [address] RBC (Bld) [#/Vol] 2.69 10*6/uL Low 3.90-5.60 [facility] Comment on above: Performed By: #### H S TROP, CK #### [address] WBC (Bld) [#/Vol] 8.8 10*3/uL Normal 4.1-10.5 [facility] Comment on above: Performed By: #### H S TROP, CK #### [address] ECG 12 lead ECGon 10-23-2023 ECG 12 lead ECG [facility] Main [place] [address] [place] [address] Electrocardiograph Report Signed Patient: Rachel Hollingsworth SR MR#: [id number] : 1935 Acct:[id number] Age/Sex: 88 / M ADM Date: 10/20/23 Loc: Room: [address] [place] [address] Type: ADM IN Attending Dr: Francia Kirby MD Ordering Provider: Ruby Ogden MD Date of Service: 10/23/23 ECG/ECG 12 lead ECG: Chest Pain Copies to: Test Reason : Blood Pressure : / mmHG Vent. Rate : 100 BPM Atrial Rate : 100 BPM P-R Int : 208 ms QRS Dur : 148 ms QT Int : 384 ms P-R-T Axes : 017 -65 015 degrees QTc Int : 495 ms Normal sinus rhythm Left axis deviation Right bundle branch block Inferior infarct , age undetermined Abnormal ECG No previous ECGs available Confirmed by Benjamin Mora ([id number]) on 10/23/2023 10:26:49 AM Referred By: Electronically Signed By:Benjamin Mora Transcribed By: MUS Signed By Benjamin Mora MD 10/23/23 1026 Normal [facility] Fecal occult blood detection by immunochemistryOrdered By: Sidney Chapman on 10-23-2023 Hemoglobin.gastrointest inal Ql (Stl) [facility] Glucose Poct Glucometerson 0 10-23-2023 Glucose [Mass/Vol] 331 mg/dL Normal [facility] Comment on above: Result Comment: [facility] Glucose Reference Range is dependent on time and content of last meal. Glucose of more than 200 mg/dL in a nonstressed, ambulatory subject supports the diagnosis of Diabetes Mellitus. PERFORMED BY: [place] [address] PATHOLOGIST SUBSTATION MAINTENANCE TECHNICIAN KARINA JOYNER M.D. Performed By: #### G LULS #### Point of Care testing , Glucose [Mass/Vol] 257 mg/dL Normal [facility] Comment on above: Result Comment: [facility] Glucose Reference Range is dependent on time and content of last meal. Glucose of more than 200 mg/dL in a nonstressed, ambulatory subject supports the diagnosis of Diabetes Mellitus. PERFORMED BY: [place] [address] PATHOLOGIST SUBSTATION MAINTENANCE TECHNICIAN KARINA JOYNER M.D. Performed By: #### G LULS #### Point of Care testing , Glucose [Mass/Vol] 224 mg/dL Normal [facility] Comment on above: Result Comment: [facility] Glucose Reference Range is dependent on time and content of last meal. Glucose of more than 200 mg/dL in a nonstressed, ambulatory subject supports the diagnosis of Diabetes Mellitus. PERFORMED BY: [place] [address] PATHOLOGIST SUBSTATION MAINTENANCE TECHNICIAN KARINA JOYNER M.D. Performed By: #### H S TROP, CK #### [address] Glucose [Mass/Vol] 141 mg/dL Normal [facility] Comment on above: Result Comment: [facility] Glucose Reference Range is dependent on time and content of last meal. Glucose of more than 200 mg/dL in a nonstressed, ambulatory subject supports the diagnosis of Diabetes Mellitus. PERFORMED BY: [place] [address] PATHOLOGIST SUBSTATION MAINTENANCE TECHNICIAN KARINA JOYNER M.D. Performed By: #### G SAURAV #### Point of Care testing , LeukoReduced RBCon LeukoReduced RBC TRANSFUSED 10/24/23 2354 Normal [facility] Platelet adequacy [Presence] in Blood by Light microscopyOrdered By: Sidney Chapman on 10-23-2023 Platelets LM Ql (Bld) Normal Normal [facility] Platelet morphology finding [Identifier] in BloodOrdered By: Sidney Chapman on 10-23-2023 Platelet morphology finding Nom (Bld) Normal Normal [facility] Polychromasia [Presence] in Blood by Light microscopyOrdered By: Sidney Chapman on 10-23-2023 Polychromasia LM Ql (Bld) Moderate [facility] RBC morphologyOrdered By: Marianne Chapman on 10-23-2023 RBC morphology finding Nom (Bld) N/A [facility] Renal Function Panelon 10-22 Albumin [Mass/Vol] 3.6 g/dL Normal 3.5-5.7 [facility] Comment on above: Performed By: #### H S TROP, CK #### [facility] [address] [place] [address] [place] Anion gap [Moles/Vol] 12.7 mmol/L Normal 6.0-15.0 [facility] Comment on above: Performed By: #### H S TROP, CK #### [facility] [address] [place] [address] [place] Calcium [Mass/Vol] 8.8 mg/dL Normal 8.6-10.3 [facility] Comment on above: Performed By: #### H S TROP, CK #### [facility] [address] [place] [address] [place] Chloride [Moles/Vol] 102 mmol/L Normal 98-107 [facility] Comment on above: Performed By: #### H S TROP, CK #### [place] [address] [place] CO2 [Moles/Vol] 26.5 mmol/L Normal 21.0-31.0 [facility] Comment on above: Performed By: #### H S TROP, CK #### [place] [address] [place] Creatinine [Mass/Vol] 2.53 mg/dL High 0.70-1.30 [facility] Comment on above: Performed By: #### H S TROP, CK #### [place] [address] [place] Creatinine Clr Calc Pharmacy 24.43 Normal [facility] Comment on above: Result Comment: PERF ORMED BY: [place] [address] PATHOLOGIST SUBSTATION MAINTENANCE TECHNICIAN KARINA JOYNER M.D. Performed By: #### H S TROP, CK #### [place] [address] [place] GFR/1.73 sq M.predicted MDRD (S/P/Bld) [Vol rate/Area] 24.063 mL/min/{1.73_m2} Normal [facility] Comment on above: Performed By: #### H S TROP, CK #### [address] Glucose [Mass/Vol] 90 mg/dL Normal 70-100 [facility] Comment on above: Result Comment: [place] Glucose Reference Range is dependent on time and content of last meal. Glucose of more than 200 mg/dL in a nonstressed, ambulatory subject supports the diagnosis of Diabetes Mellitus. ADA recommended reference range Performed By: #### H S TROP, CK #### [address] Phosphate [Mass/Vol] 3.3 mg/dL Normal 2.5-4.5 [facility] Comment on above: Performed By: #### H S TROP, CK #### [address] Potassium [Moles/Vol] 4.2 mmol/L Normal 3.5-5.1 [facility] Comment on above: Performed By: #### Magno FORD, CK #### [address] Sodium [Moles/Vol] 137 mmol/L Normal 136-145 [facility] Comment on above: Performed By: #### Magno FORD, CK #### [address] Urea nitrogen [Mass/Vol] 47 mg/dL High 7-25 [facility] Comment on above: Performed By: #### Magno FORD, CK #### [address] Scan and CBCon 10-23-2023 Basophils (Bld) [#/Vol] 0.1 10*3/uL Normal 0.0-0.2 [facility] Comment on above: Performed By: #### Magno FORD, CK #### [address] Basophils/100 WBC (Bld) 2.1 % Normal . T [facility]ose [facility] Comment on above: Performed By: #### Magno FORD, CK #### [address] Eosinophils (Bld) [#/Vol] 0.0 10*3/uL Normal 0.0-0.45 [facility] Comment on above: Performed By: #### Magno FORD, CK #### [address] Eosinophils/100 WBC (Bld) 0.4 % Normal . [facility] Comment on above: Performed By: #### Magno FORD, CK #### [address] Erythrocyte distribution width (RBC) [Ratio] 15.3 % High 12.0-14.8 [facility] Comment on above: Performed By: #### Magno FORD, CK #### [address] Hematocrit (Bld) [Volume fraction] 27.5 % Low 38.8-50.0 [facility] Comment on above: Performed By: #### H Amita FORD, CK #### [address] Hemoglobin (Bld) [Mass/Vol] 9.2 g/dL Low 13.0-17.0 [facility] Comment on above: Performed By: #### H Amita FORD, CK #### [address] Lymphocytes (Bld) [#/Vol] 0.3 10*3/uL Low 1.00-4.8 [facility] Comment on above: Performed By: #### Magno FORD, CK #### [address] Lymphocytes/100 WBC (Bld) 5.4 % Normal . [facility] Comment on above: Performed By: #### H Amita FORD, CK #### [address] MCH (RBC) [Entitic mass] 30.5 pg Normal 27.5-35.2 [facility] Comment on above: Performed By: #### H Amita FORD, CK #### [address] MCV (RBC) [Entitic vol] 90.8 fL Normal 83.5-101 T [facility] Comment on above: Performed By: #### H Amita FORD, CK #### [address] Mean Corpuscular HGB Conc 33.6 g/dL Normal 32.5-35.6 [facility] Comment on above: Performed By: #### H Amita FORD, CK #### [address] Monocytes (Bld) [#/Vol] 0.1 10*3/uL Normal 0.0-0.8 [facility] Comment on above: Performed By: #### H Amita FORD, CK #### [address] Monocytes/100 WBC (Bld) 1.8 % Normal . T [facility] Comment on above: Performed By: #### H S TROP, CK #### [address] Neutrophils (Bld) [#/Vol] 4.6 10*3/uL Normal 1.8-7.7 [facility] Comment on above: Performed By: #### H S TROP, CK #### [address] Neutrophils/100 WBC (Bld) 90.3 % Normal . [facility] Comment on above: Performed By: #### H S TROP, CK #### [address] NRBC% 0.3 /100{WBC} Normal 0-0.5 [facility] Comment on above: Performed By: #### H S TROP, CK #### [address] Platelet Estimate Normal Normal Normal [facility] Comment on above: Performed By: #### H S TROP, CK #### [address] Platelet mean volume (Bld) [Entitic vol] 9.6 fL Normal 6.6-10.1 [facility] Comment on above: Performed By: #### H S TROP, CK #### [address] Platelet Morphology Normal Normal Normal [facility] Comment on above: Result Comment: PERF ORMED BY: [place] [address] PATHOLOGIST SUBSTATION MAINTENANCE TECHNICIAN KARINA JOYNER M.D. Performed By: #### H S TROP, CK #### [address] Platelets (Bld) [#/Vol] 157 10*3/uL Normal 150-450 [facility] Comment on above: Performed By: #### H S TROP, CK #### [address] Polychromasia Moderate Normal [facility] Comment on above: Performed By: #### H S TROP, CK #### [address] RBC (Bld) [#/Vol] 3.03 10*6/uL Low 3.90-5.60 [facility] Comment on above: Performed By: #### H S TROP, CK #### [address] WBC (Bld) [#/Vol] 5.0 10*3/uL Normal 4.1-10.5 [facility] Comment on above: Performed By: #### H S TROP, CK #### [address] Stool Occult Blood (Guaiac)o n 10-23-2023 Stool Occult Blood (Guaiac) Occult Blood Positive for Occult Blood by Guaiac Methodology ---- Reference range = Negative PERFORMED BY: [place] [address] PATHOLOGIST SUBSTATION MAINTENANCE TECHNICIAN KARINA JOYNER M.D. Normal [facility] Comment on above: Performed By: #### O B(GUAIAC) ####[address] Type and Screenon 10-23-2023 ABO and Rh group Nom (Bld) Blood group A Rh(D) positive Normal [facility] Comment on above: Order Comment: FOX WILDER TRIED Result Comment: PERF ORMED BY: [place] [address] PATHOLOGIST SUBSTATION MAINTENANCE TECHNICIAN KARINA JOYNER M.D. XR chest 1V portableon 10-22 XR chest 1V portable [facility] [address] [place], [place] [id number] XRay Report Signed Patient: Rachel Hollingsworth SR MR#: [id number] : 1935 Acct:[id number] Age/Sex: 88 / M ADM Date: 10/20/23 Loc: Room: [address] [place] [address] Type: ADM IN Attending Dr: Francia Kirby MD Copies to: MD Arabella Call APRN Ordering Provider: Arabella Durand APRN Date of Service: 10/23/23 XR/XR chest 1V portable: shortness of breath PORTABLE AP ERECT CHEST 0512 hours CLINICAL HISTORY: Shortness of breath COMPARISON: 10/22/2023 Median sternotomy wires are present. There is continued slight elevation of the right hemidiaphragm. The interstitial markings are slightly more prominent. There is also some atelectatic and/or infiltrative change . Pleural effusion is not excluded without a lateral view. No pneumothorax is seen. The heart is not significantly enlarged. Bony structures are osteopenic. There is endplate spurring at the spine and shoulders. XR/XR chest 1V portable IMPRESSION: DEVELOPING PARENCHYMAL CHANGES. Impression dictated by: Amber Archibald M.D.10/23/2023 6:52 AM Dictation Location: [place] [address] Transcribed By: [facility] 10/23/23 0652 Dictated By: Amber Archibald MD 10/23/23 0648 Signed By: 10/23/23 0652 Normal [facility] Activated partial thrombopla stin time (aPTT) in platelet poor plasma by coagulation aOrdered By: Vj Hess on 10-22-2023 aPTT Coag (PPP) [Time] 36.3 s 25.1-36.5 [facility] Comment on above: A hematocrit value g reater than 55% may lead to inaccurate results in coagulation testing. Patients having hematocrit values >55% require a special collection tube for coagulation studies. Please contact the laboratory at [phone] for redraw instructions. Glucose Poct Glucometerson 0 10-22-2023 Glucose [Mass/Vol] 243 mg/dL Normal [facility] Comment on above: Result Comment: [place] om Glucose Reference Range is dependent on time and content of last meal. Glucose of more than 200 mg/dL in a nonstressed, ambulatory subject supports the diagnosis of Diabetes Mellitus. PERFORMED BY: [place] [address] PATHOLOGIST SUBSTATION MAINTENANCE TECHNICIAN KARINA JOYNER M.D. Performed By: #### G LULS ####Point of Care testing, Glucose [Mass/Vol] 301 mg/dL Normal [facility] Comment on above: Result Comment: [place] om Glucose Reference Range is dependent on time and content of last meal. Glucose of more than 200 mg/dL in a nonstressed, ambulatory subject supports the diagnosis of Diabetes Mellitus. PERFORMED BY: [place] [address] PATHOLOGIST SUBSTATION MAINTENANCE TECHNICIAN KARINA JOYNER M.D. Performed By: #### H S TROP, CK #### [address] Glucose [Mass/Vol] 161 mg/dL Normal [facility] Comment on above: Result Comment: [place] om Glucose Reference Range is dependent on time and content of last meal. Glucose of more than 200 mg/dL in a nonstressed, ambulatory subject supports the diagnosis of Diabetes Mellitus. PERFORMED BY: [place] [address] PATHOLOGIST SUBSTATION MAINTENANCE TECHNICIAN KARINA JOYNER M.D. Performed By: #### G LULS #### Point of Care testing , Glucose [Mass/Vol] 95 mg/dL Normal [facility] Comment on above: Result Comment: [place] om Glucose Reference Range is dependent on time and content of last meal. Glucose of more than 200 mg/dL in a nonstressed, ambulatory subject supports the diagnosis of Diabetes Mellitus. PERFORMED BY: [place] [address] PATHOLOGIST SUBSTATION MAINTENANCE TECHNICIAN KARINA JOYNER M.D. Performed By: #### H S TROP, CK #### [address] Hematocriton 10-22-2023 Hematocrit (Bld) [Volume fraction] 21.9 % Low 38.8-50.0 [facility] Comment on above: Order Comment: draw at 1811 per rn herlinda psw 1655 Result Comment: PERF ORMED BY: [place] [id number] PATHOLOGIST SUBSTATION MAINTENANCE TECHNICIAN KARINA JOYNER M.D. Performed By: #### G LULS #### Point of Care testing , Hemoglobinon 10-22-2023 Hemoglobin (Bld) [Mass/Vol] 7.5 g/dL Low 13.0-17.0 [facility] Comment on above: Order Comment: draw at 1811 per rn herlinda psw 1655 Performed By: #### G LULS #### Point of Care testing , Partial Thromboplastin Timeo n 10-22-2023 aPTT Coag (Bld) [Time] 36.3 s Normal 25.1-36.5 [facility] Comment on above: Result Comment: A matocrit value greater than 55% may lead to inaccurate results in coagulation testing. Patients having hematocrit values >55% require a special collection tube for coagulation studies. Please contact the laboratory at [phone] for redraw instructions. PERFORMED BY: [place] [address] PATHOLOGIST SUBSTATION MAINTENANCE TECHNICIAN KARINA JOYNER M.D. Performed By: #### H S TROP, CK #### [address] aPTT Coag (Bld) [Time] 94.2 s Off scale high 25.1-36.5 [facility] Comment on above: Result Comment: Crit ical value result called at 0902 on 10/22/23 A hematocrit value greater than 55% may lead to inaccurate results in coagulation testing. Patients having hematocrit values >55% require a special collection tube for coagulation studies. Please contact the laboratory at [phone] for redraw instructions. PERFORMED BY: [place] [id number] PATHOLOGIST SUBSTATION MAINTENANCE TECHNICIAN KARINA JOYNER M.D. Performed By: #### H S TROP, CK #### [address] aPTT Coag (Bld) [Time] 103.8 s Off scale high 25.1-36.5 [facility] Comment on above: Result Comment: Resu lts called at 0630 on 10/22/23 A hematocrit value greater than 55% may lead to inaccurate results in coagulation testing. Patients having hematocrit values >55% require a special collection tube for coagulation studies. Please contact the laboratory at [phone] for redraw instructions. PERFORMED BY: [place] [address] PATHOLOGIST SUBSTATION MAINTENANCE TECHNICIAN KARINA JOYNER M.D. Performed By: #### H S TROP, CK #### [address] Renal Function Panelon 10-21 Albumin [Mass/Vol] 3.3 g/dL Low 3.5-5.7 [facility] Comment on above: Performed By: #### G LULS #### Point of Care testing , Anion gap [Moles/Vol] 10.8 mmol/L Normal 6.0-15.0 [facility] Comment on above: Performed By: #### G LULS #### Point of Care testing , Calcium [Mass/Vol] 8.3 mg/dL Low 8.6-10.3 [facility] Comment on above: Performed By: #### G LULS #### Point of Care testing , Chloride [Moles/Vol] 105 mmol/L Normal 98-107 [facility] Comment on above: Performed By: #### G LULS #### Point of Care testing , CO2 [Moles/Vol] 25.7 mmol/L Normal 21.0-31.0 [facility] Comment on above: Performed By: #### G LULS #### Point of Care testing , Creatinine [Mass/Vol] 2.75 mg/dL High 0.70-1.30 [facility] Comment on above: Performed By: #### G LULS #### Point of Care testing , Creatinine Clr Calc Pharmacy 22.17 Normal [facility] Comment on above: Result Comment: PERF ORMED BY: [address] [address] PATHOLOGIST SUBSTATION MAINTENANCE TECHNICIAN KARINA JOYNER M.D. Performed By: #### G LULS #### Point of Care testing , GFR/1.73 sq M.predicted MDRD (S/P/Bld) [Vol rate/Area] 21.771 mL/min/{1.73_m2} Normal [facility] Comment on above: Performed By: #### G LULS #### Point of Care testing , Glucose [Mass/Vol] 89 mg/dL Normal 70-100 [facility] Comment on above: Result Comment: [place] Glucose Reference Range is dependent on time and content of last meal. Glucose of more than 200 mg/dL in a nonstressed, ambulatory subject supports the diagnosis of Diabetes Mellitus. ADA recommended reference range Performed By: #### G LULS #### Point of Care testing , Phosphate [Mass/Vol] 3.7 mg/dL Normal 2.5-4.5 [facility] Comment on above: Performed By: #### G LULS #### Point of Care testing , Potassium [Moles/Vol] 4.5 mmol/L Normal 3.5-5.1 [facility] Comment on above: Performed By: #### G LULS #### Point of Care testing , Sodium [Moles/Vol] 137 mmol/L Normal 136-145 [facility] Comment on above: Performed By: #### G LULS #### Point of Care testing , Urea nitrogen [Mass/Vol] 51 mg/dL High 7-25 [facility] Comment on above: Performed By: #### G LULS #### Point of Care testing , XR chest 2V*on 10-22-2023 XR chest 2V* [facility] Main [address] [address] XRay Report Signed Patient: Rachel Hollingsworth SR MR#: [id number] : 1935 Acct:[id number] Age/Sex: 88 / M ADM Date: 10/20/23 Loc: Room: [address] [place] [address] Type: ADM IN Attending Dr: Francia Kirby MD Copies to: MD Sidney Call MD Ordering Provider: Sidney Chapman MD Date of Service: 10/22/23 XR/XR chest 2V*: NSTEMI-Shortness of breath Chest 2 views CLINICAL HISTORY: Shortness of breath. COMPARISON: Chest 06/06/2023 FINDINGS: Sternotomy wires are noted. Heart is normal in size. Small bilateral pleural effusions best seen on the lateral view. No consolidation pneumothorax or free air. XR/XR chest 2V* IMPRESSION: SMALL BILATERAL PLEURAL EFFUSIONS. NO CONSOLIDATION TO SUGGEST PNEUMONIA. Impression dictated by: Carlton Simon Jr., D.O.10/22/2023 4:11 PM Dictation Location: [place] [address] Transcribed By: [facility] 10/22/23 1611 Dictated By: Carlton Simon Jr, DO 10/22/23 1611 Signed By: 10/22/23 1611 Normal [facility] Automated epithelial cells c ount in urine sediment (number/area)Ordered By: Scott Delgado on 10-21-2023 Epithelial cells Auto (Urine sed) [#/Area] None seen [HPF] 0-2 [facility] Bacteria [Presence] in Urine by AutomatedOrdered By: Scott Delgado on 10-21-2023 Bacteria Auto Ql (U) None seen [HPF] None Seen [facility] Bilirubin Test strip Ql (U)O rdered By: Scott Delgado on 10-21-2023 Bilirubin Ql (U) Negative Negative [facility] Color of Urine by AutoOrdere d By: Scott Delgado on 10-21-2023 Color (U) Yellow Normal Yellow [facility] Comment on above: Order Comment: FOX WILDER TRIED Performed By: #### H S TROP, CK #### [address] Complete Blood Count Auto Di ffon 10-21-2023 Basophils (Bld) [#/Vol] 0.0 10*3/uL Normal 0.0-0.2 [facility] Comment on above: Result Comment: PERF ORMED BY: [facility] [address] [place] [address] PATHOLOGIST SUBSTATION MAINTENANCE TECHNICIAN KARINA JOYNER M.D. Performed By: #### C BC, PTT, PT ####[address] Basophils/100 WBC (Bld) 0.5 % Normal . [facility] Comment on above: Performed By: #### C BC, PTT, PT ####[address] Eosinophils (Bld) [#/Vol] 0.3 10*3/uL Normal 0.0-0.45 [facility] Comment on above: Performed By: #### C BC, PTT, PT ####[address] Eosinophils/100 WBC (Bld) 3.7 % Normal . [facility] Comment on above: Performed By: #### C BC, PTT, PT ####[address] Erythrocyte distribution width (RBC) [Ratio] 15.9 % High 12.0-14.8 [facility] Comment on above: Performed By: #### C BC, PTT, PT ####[address] Hematocrit (Bld) [Volume fraction] 27.1 % Low 38.8-50.0 [facility] Comment on above: Performed By: #### C BC, PTT, PT ####[address] Hemoglobin (Bld) [Mass/Vol] 9.3 g/dL Low 13.0-17.0 [facility] Comment on above: Performed By: #### C BC, PTT, PT ####[address] Lymphocytes (Bld) [#/Vol] 0.7 10*3/uL Low 1.00-4.8 [facility] Comment on above: Performed By: #### C BC, PTT, PT ####[address] Lymphocytes/100 WBC (Bld) 8.3 % Normal . [facility] Comment on above: Performed By: #### C BC, PTT, PT ####[address] MCH (RBC) [Entitic mass] 31.0 pg Normal 27.5-35.2 [facility] Comment on above: Performed By: #### C BC, PTT, PT ####[address] MCV (RBC) [Entitic vol] 90.4 fL Normal 83.5-101 [facility] Comment on above: Performed By: #### C BC, PTT, PT ####[address] Mean Corpuscular HGB Conc 34.3 g/dL Normal 32.5-35.6 [facility] Comment on above: Performed By: #### C BC, PTT, PT ####[address] Monocytes (Bld) [#/Vol] 0.7 10*3/uL Normal 0.0-0.8 [facility] Comment on above: Performed By: #### C BC, PTT, PT ####[address] Monocytes/100 WBC (Bld) 7.9 % Normal . [facility] Comment on above: Performed By: #### C BC, PTT, PT ####[address] Neutrophils (Bld) [#/Vol] 6.8 10*3/uL Normal 1.8-7.7 [facility] Comment on above: Performed By: #### C BC, PTT, PT ####[address] [address] [place] Neutrophils/100 WBC (Bld) 79.6 % Normal . [facility] Comment on above: Performed By: #### C BC, PTT, PT ####[address] NRBC% 0.0 /100{WBC} Normal 0-0.5 [facility] Comment on above: Performed By: #### C BC, PTT, PT ####[address] Platelet mean volume (Bld) [Entitic vol] 8.9 fL Normal 6.6-10.1 [facility] Comment on above: Performed By: #### C BC, PTT, PT ####[address] Platelets (Bld) [#/Vol] 178 10*3/uL Normal 150-450 [facility] Comment on above: Performed By: #### C BC, PTT, PT ####[address] RBC (Bld) [#/Vol] 3.00 10*6/uL Low 3.90-5.60 [facility] Comment on above: Performed By: #### C BC, PTT, PT ####[address] WBC (Bld) [#/Vol] 8.6 10*3/uL Normal 4.1-10.5 [facility] Comment on above: Performed By: #### C BC, PTT, PT ####[address] Creatine Kinaseon 10-21-2023 CK [Catalytic activity/Vol] 247 U/L High 30-223 [facility] Comment on above: Performed By: #### C K, HS TROP #### [address] Creatine kinase [Enzymatic a ctivity/volume] in Serum or PlasmaOrdered By: Dandre Oleary on 05-28-2024 CK [Catalytic activity/Vol] 191 U/L Normal 30-223 [facility] Comment on above: Performed By: #### C K, HS TROP ####[facility] [place] [address] Creatinine [Mass/volume] in UrineOrdered By: Scott Delgado on 10-21-2023 Creatinine (U) [Mass/Vol] 96.00 mg/dL [facility] Comment on above: No reference range e stablished Creatinine, Urine (Random)on 10-21-2023 Creatinine, Urine (Random) 96.00 mg/dL Normal [facility] Comment on above: Result Comment: No r eference range established Performed By: #### H S TROP, CK #### [address] Dipstick and Microscopicon 0 10-21-2023 Appearance (U) Clear Normal Clear [facility] Comment on above: Order Comment: DAKOT A AND SUKHJINDER TRIED Performed By: #### H S TROP, CK #### [address] Bacteria,Urine None Seen Normal None Seen [facility] Comment on above: Order Comment: DAKOT A AND SUKHJINDER TRIED Performed By: #### H S TROP, CK #### [address] Bilirubin,Urine Negative Normal Negative [facility] Comment on above: Order Comment: DAKOT A AND SUKHJINDER TRIED Performed By: #### H S TROP, CK #### [address] Glucose Ql (U) >=1000 High Normal [facility] Comment on above: Order Comment: DAKOT A AND SUKHJINDER TRIED Performed By: #### H S TROP, CK #### [address] Hyaline Casts,Urine 0-8 Normal 0-8 [facility] Comment on above: Order Comment: DAKOT A AND SUKHJINDER TRIED Result Comment: PERF ORMED BY: [place] [address] PATHOLOGIST SUBSTATION MAINTENANCE TECHNICIAN KARINA JOYNER M.D. Performed By: #### H S TROP, CK #### [address] Ketones Ql (U) Negative Normal Negative [facility] Comment on above: Order Comment: DAKOT A AND SUKHJINDER TRIED Performed By: #### H S TROP, CK #### [address] Leukocyte esterase Test strip Ql (U) Negative Normal Negative [facility] Comment on above: Order Comment: DAKOT A AND SUKHJINDER TRIED Performed By: #### H S TROP, CK #### [address] Nitrite,Urine Negative Normal Negative [facility] Comment on above: Order Comment: DAKOT A AND SUKHJINDER TRIED Performed By: #### H S TROP, CK #### [address] Occult Blood,Urine Negative Normal Negative [facility] Comment on above: Order Comment: DAKOT A AND SUKHJINDER TRIED Result Comment: PERF ORMED BY: [place] [address] PATHOLOGIST SUBSTATION MAINTENANCE TECHNICIAN KARINA JOYNER M.D. Performed By: #### H S TROP, CK #### [address] RBC,Urine 10-19 High 0-4 [facility] Comment on above: Order Comment: DAKOT A AND SUKHJINDER TRIED Performed By: #### H S TROP, CK #### [address] Specificy Harrells,Urine 1.020 Normal 1.00 1-1.03 0 [facility] Comment on above: Order Comment: DAKOT A AND SUKHJINDER TRIED Performed By: #### H S TROP, CK #### [address] Squamous Epithelial Cell,Urine None Seen Normal 0-2 [facility] Comment on above: Order Comment: DAKOT A AND SUKHJINDER TRIED Performed By: #### H S TROP, CK #### [facility] [address] Urobilinogen,Urine Normal Normal Normal [facility] Comment on above: Order Comment: DAKOT A AND SUKHJINDER TRIED Performed By: #### H S TROP, CK #### [facility] [address] WBC,Urine None Seen Normal 0-4 [facility] Comment on above: Order Comment: DAKOT A AND SUKHJINDER TRIED Performed By: #### H S TROP, CK #### [facility] [address] [facility] echo transthoracicon [facility] echo transthoracic [facility] [place] [address] [place] [address] Echocardiogram Signed Patient: Rachel Hollingsworth SR MR#: [id number] : 1935 Acct:[id number] Age/Sex: 88 / M ADM Date: 10/20/23 Loc: Room: [address] [place] [address] Type: ADM IN Attending Dr: Norman Figueroa DO Ordering Provider: Dandre Oleary MD Date of Service: 10/21/23 [facility] echo transthoracic: NSTEMI Copies to: MD Dandre Garrido MD Height: 69 in Weight: 208 lb Performed By: JOEL Leon BSA: 2.1 m2 BP: 118/70 mmHg HR: 82 Reason For Study: NSTEMI History: PVD, CHF, A-Fib., Anemia, CKD, HLD, CAD, HTN, Carotid Artery Disease, DM, Stroke, CABG Interpretation Summary Ejection Fraction = 45-50%. Moderate concentric left ventricular hypertrophy. There is moderate inferior wall hypokinesis. There is trace mitral regurgitation. There is trace tricuspid regurgitation. There is no comparison study available. Procedure/Quality: A two-dimensional transthoracic echocardiogram with color flow, Doppler and injection of contrast agent Definity was performed. The study was technically good in quality. Left Ventricle: The left ventricular size is normal. Moderate concentric left ventricular hypertrophy. Ejection Fraction = 45-50%. There is moderate inferior wall hypokinesis. Left Atrium: The left atrium appears normal in size. Right Atrium: The right atrium appears normal in size. Right Ventricle: The right ventricle is normal in size and function. Aortic Valve: The aortic valve is trileaflet. The aortic valve is mildly sclerotic. No hemodynamically significant valvular aortic stenosis. No aortic regurgitation is present. Mitral Valve: The mitral valve is normal in structure. No significant mitral valve stenosis. There is trace mitral regurgitation. Tricuspid Valve: The tricuspid valve is normal in structure. There is trace tricuspid regurgitation. Pulmonic Valve: The pulmonic valve is not well visualized. No significant pulmonic regurgitation. Arteries: The aortic root is normal size. Pericardium/Pleura: No pericardial effusion seen. There is no pleural effusion. IVC/Hepatic Veins: The inferior vena cava is normal in size, with a normal collapsibility index. Measurements with Normals IVSd: 1.8 cm (0.7-1.1 cm)LVIDd: 4.1 cm (3.7-5.4 cm) LVPWd: 1.4 cm (0.7-1.1 cm)LVIDs: 3.1 cm (2.3-3.6 cm) LA dimension: 3.8 cm (2.3-4.0 cm)Ao root diam: 4.0 cm(2.0-3.6 cm) asc Aorta Diam: 3.3 cm(2.1-3.4cm) Doppler with Normals RVSP(TR): 44.0 mmHg (18-35mmHg) LV V1 max: 103.4 cm/sec (0.7-1.7m/s)MV E max mehul: 168.5 cm/sec(0.8-1.3m/s) MV A max mehul: 47.7 cm/sec(0.0-0.0m/s) MV E/A: 3.5 (<1.5) MMode/2D Measurements Calculations RVDd: 3.6 cm FS: 24.5 % Ao root area: LVOT diam: 2.0 cm TAPSE: 1.8 cm EDV(Teich): 12.8 cm2 LVOT area: 3.1 cm2 RV S Mehul: 74.3 ml 14.0 cm/sec ESV(Teich): 37.8 ml EF(Teich): 49.1 % __ LVLd ap4: 9.9 cm SV(MOD-sp4): LAV(MOD-sp4): LA A2 area: 21.8 cm2 EDV(MOD-sp4): 86.8 ml 48.4 ml 184.0 ml LAV(MOD-sp2): LA A4 area: 19.2 cm2 LVLs ap4: 8.5 cm 68.2 ml LA length (vol): ESV(MOD-sp4): 5.8 cm 97.2 ml LA vol: 61.8 ml EF(MOD-sp4): 47.2 % LA vol index: 29.4 ml/m2 Doppler Measurements Calculations MV dec time: MV V2 max: E/E' lat: 13.0 MV P1/2t max mehul: 0.19 sec 162.4 cm/sec E/E' med: 13.2 158.7 cm/sec MV max PG: MV P1/2t: 68.6 msec 80.0 mmHg MV V2 mean: MVA(P1/2t): 3.2 cm2 82.1 cm/sec MV dec slope: MV mean P.1 cm/sec2 3.5 mmHg MV V2 VTI: 31.8 cm MVA(VTI): 2.0 cm2 __ Ao V2 max: LV V1 max PG: MR max mehul: TV max P.0 mmHg 146.0 cm/sec 4.3 mmHg 446.5 cm/sec Ao max PG: LV V1 mean PG: MR max P.5 mmHg 2.2 mmHg 80.3 mmHg Ao mean PG: LV V1 mean: 4.7 mmHg 74.2 cm/sec Ao V2 mean: LV V1 VTI: 20.6 cm 105.1 cm/sec Ao V2 VTI: 26.9 cm PARAG(I,D): 2.3 cm2 PARAG(V,D): 2.2 cm2 __ TR max mehul: 312.2 cm/sec TR max P.0 mmHg RAP systole: 5.0 mmHg ___ Transcribed By: FARA Performed At: 10/21/23 0814 Signed By: Kayleigh Stoner MD 10/21/23 1110 Normal [facility] Erythrocytes [#/area] in Uri ne sediment by Automated countOrdered By: Scott Delgado on 10-21-2023 RBC Auto (Urine sed) [#/Area] 10- [HPF] 0-4 [facility] Glucose Poct Glucometerson 0 10-21-2023 Commemt1 Glu2: Cleaned Meter Normal [facility] Comment on above: Result Comment: PERF ORMED BY: [place] [address] PATHOLOGIST SUBSTATION MAINTENANCE TECHNICIAN KARINA JOYNER M.D. Performed By: #### G LULS #### Point of Care testing , Glucose [Mass/Vol] 185 mg/dL Normal [facility] Comment on above: Result Comment: [place] Glucose Reference Range is dependent on time and content of last meal. Glucose of more than 200 mg/dL in a nonstressed, ambulatory subject supports the diagnosis of Diabetes Mellitus. Performed By: #### G LULS #### Point of Care testing , Commemt1 Glu2: Cleaned Meter Normal [facility] Comment on above: Result Comment: PERF ORMED BY: [place] [address] PATHOLOGIST SUBSTATION MAINTENANCE TECHNICIAN KARINA JOYNER M.D. Performed By: #### C K, HS TROP #### [address] Glucose [Mass/Vol] 258 mg/dL Normal [facility] Comment on above: Result Comment: [place] Glucose Reference Range is dependent on time and content of last meal. Glucose of more than 200 mg/dL in a nonstressed, ambulatory subject supports the diagnosis of Diabetes Mellitus. Performed By: #### C K, HS TROP #### [address] Commemt1 Glu2: Cleaned Meter Normal [facility] Comment on above: Result Comment: PERF ORMED BY: [place] [address] PATHOLOGIST SUBSTATION MAINTENANCE TECHNICIAN KARINA JOYNER M.D. Performed By: #### C K, HS TROP #### [facility] [address] Glucose [Mass/Vol] 87 mg/dL Normal [facility] Comment on above: Result Comment: [place] Glucose Reference Range is dependent on time and content of last meal. Glucose of more than 200 mg/dL in a nonstressed, ambulatory subject supports the diagnosis of Diabetes Mellitus. Performed By: #### C K, HS TROP #### [facility] [address] [place] [address] Commemt1 Glu2: Cleaned Meter Normal [facility] Comment on above: Result Comment: PERF ORMED BY: [place] [address] PATHOLOGIST SUBSTATION MAINTENANCE TECHNICIAN KARINA JOYNER M.D. Performed By: #### G LULS ####Point of Care testing, Glucose [Mass/Vol] 108 mg/dL Normal [facility] Comment on above: Result Comment: [place] Glucose Reference Range is dependent on time and content of last meal. Glucose of more than 200 mg/dL in a nonstressed, ambulatory subject supports the diagnosis of Diabetes Mellitus. Performed By: #### G LULS ####Point of Care testing, INR in Platelet poor plasma by Coagulation assayOrdered By: Kayleigh Stoner on 10-21-2023 INR Coag (PPP) [Relative time] 1.2 {INR} Normal [facility] Comment on above: INR Therapeutic Rang e A) Pre- and Peroperative OAT started two weeks before surgery. NOT HIP SURGERY: 1.5 - 2.5 HIP SURGERY: 2 - 3B) Primary and secondary prevention of venous THROMBOSIS: 2 - 3C) Active venous thrombosis, pulmonary embolismand prevention of recurrent venous thrombosis: 2 - 3D) Prevention of arterial thromboembolismincluding patients with mechanical heart valves: 3 - 4.5 Result Comment: INR Therapeutic Range A) Pre- and Peroperative OAT started two weeks before surgery. NOT HIP SURGERY: 1.5 - 2.5 HIP SURGERY: 2 - 3 B) Primary and secondary prevention of venous THROMBOSIS: 2 - 3 C) Active venous thrombosis, pulmonary embolism and prevention of recurrent venous thrombosis: 2 - 3 D) Prevention of arterial thromboembolism including patients with mechanical heart valves: 3 - 4.5 Performed By: #### C BC, PTT, PT ####[facility] [address] Ketones Auto test strip (U) [Mass/Vol]Ordered By: Scott Delgado on 10-21-2023 Ketones (U) [Mass/Vol] Negative Negative [facility] Laboratory - UrinalysisOrder ed By: Scott Delgado on 10-21-2023 Hyaline casts LM Ql (Urine sed) 0-8 [LPF] 0-8 [facility] Leukocytes [#/area] in Urine sediment by Automated countOrdered By: Scott Delgado on 10-21-2023 WBC Auto (Urine sed) [#/Area] None seen [HPF] 0-4 [facility] Nitrite Test strip Ql (U)Ord ered By: Scott Delgado on 10-21-2023 Nitrite Ql (U) Negative Negative [facility] Partial Thromboplastin Timeo n 10-21-2023 aPTT Coag (Bld) [Time] 65.3 s High 25.1-36.5 [facility] Comment on above: Order Comment: List the anticoagulant: HEPARIN, UNFRACTIONATED Result Comment: A matocrit value greater than 55% may lead to inaccurate results in coagulation testing. Patients having hematocrit values >55% require a special collection tube for coagulation studies. Please contact the laboratory at [phone] for redraw instructions. PERFORMED BY: [facility] [address] [place] [address] PATHOLOGIST SUBSTATION MAINTENANCE TECHNICIAN KARINA JOYNER M.D. Performed By: #### P TT #### [facility] [address] aPTT Coag (Bld) [Time] 69.4 s High 25.1-36.5 [facility] Comment on above: Result Comment: A he matocrit value greater than 55% may lead to inaccurate results in coagulation testing. Patients having hematocrit values >55% require a special collection tube for coagulation studies. Please contact the laboratory at [phone] for redraw instructions. PERFORMED BY: [address] [place] [id number] PATHOLOGIST SUBSTATION MAINTENANCE TECHNICIAN KARINA JOYNER M.D. Performed By: #### P TT ####[place] [id number] [facility] aPTT Coag (Bld) [Time] 33.0 s Normal 25.1-36.5 [facility] Comment on above: Result Comment: A he matocrit value greater than 55% may lead to inaccurate results in coagulation testing. Patients having hematocrit values >55% require a special collection tube for coagulation studies. Please contact the laboratory at [phone] for redraw instructions. PERFORMED BY: [place] [id number] PATHOLOGIST SUBSTATION MAINTENANCE TECHNICIAN KARINA JOYNER M.D. Performed By: #### C BC, PTT, PT ####[place] [id number] [facility] Protein [Mass/volume] in Uri neOrdered By: Scott Delgado on 10-21-2023 Protein (U) [Mass/Vol] 132 mg/dL High 0-9 [facility] Comment on above: Result Comment: PERF ORMED BY: [place] [id number] PATHOLOGIST SUBSTATION MAINTENANCE TECHNICIAN KARINA JOYNER M.D. Performed By: #### H S TROP, CK #### [facility] [address] [place] [id number] [facility] Prothrombin time (PT)Ordered By: Kayleigh Stoner on 10-21-2023 PT Coag (PPP) [Time] 13.4 s High 9.0-12.9 [facility] Comment on above: A hematocrit value g reater than 55% may lead to inaccurate results in coagulation testing. Patients having hematocrit values >55% require a special collection tube for coagulation studies. Please contact the laboratory at [phone] for redraw instructions. Result Comment: A he matocrit value greater than 55% may lead to inaccurate results in coagulation testing. Patients having hematocrit values >55% require a special collection tube for coagulation studies. Please contact the laboratory at [phone] for redraw instructions. Performed By: #### C BC, PTT, PT ####[facility] [place] [address] Renal Function Panelon 10-20 Albumin [Mass/Vol] 3.5 g/dL Normal 3.5-5.7 [facility] Comment on above: Order Comment: DAKOT A AND SUKHJINDER TRIED Performed By: #### H S TROP, CK #### [address] Anion gap [Moles/Vol] 14.1 mmol/L Normal 6.0-15.0 [facility] Comment on above: Order Comment: DAKOT A AND SUKHJINDER TRIED Performed By: #### H S TROP, CK #### [address] Calcium [Mass/Vol] 8.5 mg/dL Low 8.6-10.3 [facility] Comment on above: Order Comment: DAKOT A AND SUKHJINDER TRIED Performed By: #### H S TROP, CK #### [address] Chloride [Moles/Vol] 107 mmol/L Normal 98-107 [facility] Comment on above: Order Comment: DAKOT A AND SUKHJINDER TRIED Performed By: #### H S TROP, CK #### [address] CO2 [Moles/Vol] 22.1 mmol/L Normal 21.0-31.0 [facility] Comment on above: Order Comment: DAKOT A AND SUKHJINDER TRIED Performed By: #### H S TROP, CK #### [address] Creatinine [Mass/Vol] 2.48 mg/dL High 0.70-1.30 [facility] Comment on above: Order Comment: DAKOT A AND SUKHJINDER TRIED Performed By: #### H S TROP, CK #### [facility] [address] [place] [address] [place] Creatinine Clr Calc Pharmacy 24.26 Normal [facility] Comment on above: Order Comment: DAKOT A AND SUKHJINDER TRIED Result Comment: PERF ORMED BY: [place] [address] PATHOLOGIST SUBSTATION MAINTENANCE TECHNICIAN KARINA JOYNER M.D. Performed By: #### H S TROP, CK #### [place] [address] [place] GFR/1.73 sq M.predicted MDRD (S/P/Bld) [Vol rate/Area] 24.646 mL/min/{1.73_m2} Normal [facility] Comment on above: Order Comment: DAKOT A AND SUKHJINDER TRIED Performed By: #### H S TROP, CK #### [address] Glucose [Mass/Vol] 92 mg/dL Normal 70-100 [facility] Comment on above: Order Comment: DAKOT A AND SUKHJINDER TRIED Result Comment: [facility] Glucose Reference Range is dependent on time and content of last meal. Glucose of more than 200 mg/dL in a nonstressed, ambulatory subject supports the diagnosis of Diabetes Mellitus. ADA recommended reference range Performed By: #### H S TROP, CK #### [place] [address] [place] Phosphate [Mass/Vol] 3.7 mg/dL Normal 2.5-4.5 [facility] Comment on above: Order Comment: DAKOT A AND SUKHJINDER TRIED Performed By: #### H S TROP, CK #### [place] [address] [place] Potassium [Moles/Vol] 5.2 mmol/L High 3.5-5.1 [facility] Comment on above: Order Comment: DAKOT A AND SUKHJINDER TRIED Performed By: #### H S TROP, CK #### [place] [address] [place] Sodium [Moles/Vol] 138 mmol/L Normal 136-145 [facility] Comment on above: Order Comment: DAKOT A AND SUKHJINDER TRIED Performed By: #### H S TROP, CK #### [address] Urea nitrogen [Mass/Vol] 52 mg/dL High 7-25 [facility] Comment on above: Order Comment: DAKOT A AND SUKHJINDER TRIED Performed By: #### H S TROP, CK #### [address] Specific gravity Auto test s trip (U) [Rel density]Ordered By: Scott Delgado on 10-21-2023 Specific gravity (U) [Rel density] 1.020 1.001-1.03 0 [facility] Troponin I High Sensitivityo n 10-21-2023 Troponin I High Sensitivity 7811.7 pg/mL Off scale high 0.0-20.0 [facility] Comment on above: Result Comment: Crit ical Result : Called to and read back by: AMOS DURÁN at: 10/21/2023 12:03:44 by:JANAE PERFORMED BY: [place] [address] PATHOLOGIST SUBSTATION MAINTENANCE TECHNICIAN KARINA JOYNER M.D. Performed By: #### C K, HS TROP ####[address] Troponin I High Sensitivity 13835.7 pg/mL Off scale high 0.0-20.0 [facility] Comment on above: Result Comment: Crit ical Result : Called to and read back by: LIV FONG at: 10/21/2023 03:22:44 by:[id number] PERFORMED BY: [place] [address] PATHOLOGIST SUBSTATION MAINTENANCE TECHNICIAN KARINA JOYNER M.D. Performed By: #### C K, HS TROP #### [address] Troponin I.cardiac [Mass/vol ume] in Serum or Plasma by Detection limit <= 0.01 ng/Ordered By: Dandre Oleary on 10-21-2023 Troponin I.cardiac DL <= 0.01 ng/mL [Mass/Vol] 7811.7 pg/mL 0.0-20.0 [facility] Comment on above: Critical Result : Ca lled to and read back by: AMOS DURÁN at: 10/21/2023 12:03:44 by:JANAE US renal BIon 10-21-2023 US renal BI [facility] [place] [address] [place] [address] Ultrasound Report Signed Patient: Rachel Hollingsworth SR MR#: [id number] : 1935 Acct:[id number] Age/Sex: 88 / M ADM Date: 10/20/23 Loc: Room: [address] [place] [address] Type: ADM IN Attending Dr: Norman Figueroa DO Ordering Provider: Scott Delgado MD Date of Service: 10/21/23 US/US renal BI: LILIANA on CKD Copies to: MD Norman Valle DO BILATERAL RENAL AND BLADDER ULTRASOUND CLINICAL HISTORY: Acute on chronic kidney disease. Diabetes. COMPARISON: None Estimation of renal size is approximately 10 cm on the right and 9.9 cm on the left. No shadowing calculi or hydronephrosis are identified. Cysts are seen bilaterally. The right is at the superior pole measuring 1.8 x 2.3 x 1.7 cm. On the left, there is a cyst laterally measuring 12 x 13 x 15 mm. There is also a hypoechoic area at the superior pole of the left kidney measuring 2.6 x 2.1 x 2.3 cm. This is indeterminant as to whether this cystic or solid. There is no perinephric fluid. The urinary bladder is partially distended with a volume of 106 mL. There is a dependent hypoechoic structure within the bladder measuring 3.2 x 2.3 x 1.7 cm. It is uncertain if this is related to the prostate or separate bladder mass. The prostate does appear prominent. Patient voided just prior to the exam. US/US renal BI IMPRESSION: NO OBSTRUCTIVE UROPATHY. SMALL RENAL CYSTS AND INDETERMINATE LEFT UPPER POLE HYPOECHOIC AREA. PROSTATE HYPERTROPHY VERSUS BLADDER MASS. CORRELATION AND FOLLOW-UP WILL BE NEEDED. Impression dictated by: Amber Archibald M.D.10/21/2023 9:04 PM Dictation Location: [place] [address] Tech: Ranjana Stovall Transcribed By: FLOR 10/21/232103 Dictated By: Amber Archibald MD 10/21/232099 Signed By: 10/21/232103 Normal [facility] Urine clarity by refractomet ry automatedOrdered By: Scott Delgado on 10-21-2023 Clarity Refractometry automated (U) Clear Clear [facility] Urine glucose measurement by automated test strip (mass/volume)Ordered By: Scott Delgado on 10-21-2023 Glucose Auto test strip (U) [Mass/Vol] >=1000 mg/dL Normal [facility] Urine hemoglobin detection b y automated test stripOrdered By: Scott Delgado on 10-21-2023 Hemoglobin Auto test strip Ql (U) Negative Negative [facility] Urine leukocyte esterase det ection by automated test stripOrdered By: Scott Delgado on 10-21-2023 Leukocyte esterase Auto test strip Ql (U) Negative Negative [facility] Urine pH measurement by auto mated test stripOrdered By: Scott Delgado on 10-21-2023 pH (U) 5.5 [pH] Normal 5.0-9.0 [facility] Comment on above: Order Comment: DAKOT A AND SUKHJINDER TRIED Performed By: #### H S TROP, CK #### [facility] [address] Urine protein measurement by automated test strip (mass/volume)Ordered By: Scott Delgado on 10-21-2023 Protein (U) [Mass/Vol] 100 mg/dL High Negative [facility] Comment on above: Order Comment: DAKOT A AND SUKHJINDER TRIED Performed By: #### H S TROP, CK #### [facility] [address] [place] [address] [place] Urobilinogen Auto test strip (U) [Mass/Vol]Ordered By: Scott Delgado on 10-21-2023 Urobilinogen (U) [Mass/Vol] Normal mg/dL Normal [facility] A1C with Estimated Average G luon 10-20-2023 Glucose [Mass/Vol] 206 mg/dL Normal [facility] Comment on above: Order Comment: DAKOT A AND SUKHJINDER TRIED Result Comment: PERF ORMED BY: [place] [address] PATHOLOGIST SUBSTATION MAINTENANCE TECHNICIAN KARINA JOYNER M.D. Performed By: #### A 1C [facility] eA, T3F ####[facility] [id number] [place] [address] [place] Alanine aminotransferase [En zymatic activity/volume] in Serum or PlasmaOrdered By: Dandre Mamta on 10-20-2023 ALT [Catalytic activity/Vol] 10 U/L Normal 7-52 [facility] Comment on above: Order Comment: DAKOT A AND SUKHJINDER TRIED Performed By: #### C K, HS TROP #### [place] [address] [place] Alkaline phosphatase [Enzyma tic activity/volume] in Serum or PlasmaOrdered By: Dandre Mamta on 10-20-2023 ALP [Catalytic activity/Vol] 60 U/L Normal 34-104 [facility] Comment on above: Order Comment: DAKOT A AND SUKHJINDER TRIED Performed By: #### C K, HS TROP #### [facility] [address] [place] [address] [place] Aspartate aminotransferase [ Enzymatic activity/volume] in Serum or PlasmaOrdered By: Dandre Mamta on 10-20-2023 AST [Catalytic activity/Vol] 28 U/L Normal 13-39 [facility] Comment on above: Order Comment: DAKOT A AND SUKHJINDER TRIED Performed By: #### C K, HS TROP #### [facility] [address] [place] [address] [place] B-Type Natriuretic Peptideon 10-20-2023 Natriuretic peptide B (Bld) [Mass/Vol] 760.0 pg/mL High 5-100 [facility] Comment on above: Order Comment: DAKOT A AND SUKHJINDER TRIED Result Comment: PERF ORMED BY: [place] [address] PATHOLOGIST SUBSTATION MAINTENANCE TECHNICIAN KARINA JOYNER M.D. Performed By: #### C K, HS TROP #### [address] Bilirubin.total [Mass/volume ] in Serum or PlasmaOrdered By: Dandre Oleary on 10-20-2023 Bilirubin [Mass/Vol] 0.4 mg/dL Normal 0.3-1.0 [facility] Comment on above: Order Comment: FOX WILDER TRIED Performed By: #### C K, HS TROP #### [address] Complete Blood Count Auto Di ffon 10-20-2023 Basophils (Bld) [#/Vol] 0.1 10*3/uL Normal 0.0-0.2 [facility] Comment on above: Result Comment: PERF ORMED BY: [place] [address] PATHOLOGIST SUBSTATION MAINTENANCE TECHNICIAN KARINA JOYNER M.D. Performed By: #### P TT, CBC, PT ####[address] Basophils/100 WBC (Bld) 1.7 % Normal . [facility] Comment on above: Performed By: #### P TT, CBC, PT ####[address] Eosinophils (Bld) [#/Vol] 0.6 10*3/uL High 0.0-0.45 [facility] Comment on above: Performed By: #### P TT, CBC, PT ####[address] Eosinophils/100 WBC (Bld) 6.7 % Normal . [facility] Comment on above: Performed By: #### P TT, CBC, PT ####[address] Erythrocyte distribution width (RBC) [Ratio] 16.0 % High 12.0-14.8 [facility] Comment on above: Performed By: #### P TT, CBC, PT ####[address] Hematocrit (Bld) [Volume fraction] 30.4 % Low 38.8-50.0 [facility] Comment on above: Performed By: #### P TT, CBC, PT ####[address] Hemoglobin (Bld) [Mass/Vol] 10.3 g/dL Low 13.0-17.0 [facility] Comment on above: Performed By: #### P TT, CBC, PT ####[address] Lymphocytes (Bld) [#/Vol] 1.3 10*3/uL Normal 1.00-4.8 [facility] Comment on above: Performed By: #### P TT, CBC, PT ####[address] Lymphocytes/100 WBC (Bld) 15.1 % Normal . [facility] Comment on above: Performed By: #### P TT, CBC, PT ####[address] MCH (RBC) [Entitic mass] 30.6 pg Normal 27.5-35.2 [facility] Comment on above: Performed By: #### P TT, CBC, PT ####[address] MCV (RBC) [Entitic vol] 90.5 fL Normal 83.5-101 [facility] Comment on above: Performed By: #### P TT, CBC, PT ####[address] Mean Corpuscular HGB Conc 33.8 g/dL Normal 32.5-35.6 [facility] Comment on above: Performed By: #### P TT, CBC, PT ####[address] Monocytes (Bld) [#/Vol] 0.5 10*3/uL Normal 0.0-0.8 [facility] Comment on above: Performed By: #### P TT, CBC, PT ####[address] Monocytes/100 WBC (Bld) 5.9 % Normal . [facility] Comment on above: Performed By: #### P TT, CBC, PT ####[address] Neutrophils (Bld) [#/Vol] 6.3 10*3/uL Normal 1.8-7.7 [facility] Comment on above: Performed By: #### P TT, CBC, PT ####[address] Neutrophils/100 WBC (Bld) 70.6 % Normal . [facility] Comment on above: Performed By: #### P TT, CBC, PT ####[address] NRBC% 0.1 /100{WBC} Normal 0-0.5 [facility] Comment on above: Performed By: #### P TT, CBC, PT ####[address] Platelet mean volume (Bld) [Entitic vol] 9.3 fL Normal 6.6-10.1 [facility] Comment on above: Performed By: #### P TT, CBC, PT ####[address] Platelets (Bld) [#/Vol] 181 10*3/uL Normal 150-450 [facility] Comment on above: Performed By: #### P TT, CBC, PT ####[address] RBC (Bld) [#/Vol] 3.36 10*6/uL Low 3.90-5.60 [facility] Comment on above: Performed By: #### P TT, CBC, PT ####[address] WBC (Bld) [#/Vol] 8.8 10*3/uL Normal 4.1-10.5 [facility] Comment on above: Performed By: #### P TT, CBC, PT ####[facility] Basophils (Bld) [#/Vol] 0.1 10*3/uL Normal 0.0-0.2 [facility] Comment on above: Order Comment: DAKOT A AND SUKHJINDER TRIED Result Comment: PERF ORMED BY: [place] [address] PATHOLOGIST SUBSTATION MAINTENANCE TECHNICIAN KARINA JOYNER M.D. Performed By: #### C K, HS TROP #### [address] Basophils/100 WBC (Bld) 1.3 % Normal . [facility] Comment on above: Order Comment: DAKOT A AND SUKHJINDER TRIED Performed By: #### C K, HS TROP #### [address] Eosinophils (Bld) [#/Vol] 0.6 10*3/uL High 0.0-0.45 [facility] Comment on above: Order Comment: DAKOT A AND SUKHJINDER TRIED Performed By: #### C K, HS TROP #### [address] Eosinophils/100 WBC (Bld) 7.4 % Normal . [facility] Comment on above: Order Comment: DAKOT A AND SUKHJINDER TRIED Performed By: #### C K, HS TROP #### [address] Erythrocyte distribution width (RBC) [Ratio] 16.1 % High 12.0-14.8 [facility] Comment on above: Order Comment: DAKOT A AND SUKHJINDER TRIED Performed By: #### C K, HS TROP #### [address] Hematocrit (Bld) [Volume fraction] 28.8 % Low 38.8-50.0 [facility] Comment on above: Order Comment: DAKOT A AND SUKHJINDER TRIED Performed By: #### C K, HS TROP #### [address] Hemoglobin (Bld) [Mass/Vol] 9.7 g/dL Low 13.0-17.0 [facility] Comment on above: Order Comment: DAKOT A AND SUKHJINDER TRIED Performed By: #### C K, HS TROP #### [address] Lymphocytes (Bld) [#/Vol] 2.4 10*3/uL Normal 1.00-4.8 [facility] Comment on above: Order Comment: DAKOT A AND SUKHJINDER TRIED Performed By: #### C K, HS TROP #### [address] Lymphocytes/100 WBC (Bld) 27.3 % Normal . [facility] Comment on above: Order Comment: DAKOT A AND SUKHJINDER TRIED Performed By: #### C K, HS TROP #### [address] MCH (RBC) [Entitic mass] 30.6 pg Normal 27.5-35.2 [facility] Comment on above: Order Comment: DAKOT A AND SUKHJINDER TRIED Performed By: #### C K, HS TROP #### [address] MCV (RBC) [Entitic vol] 90.7 fL Normal 83.5-101 [facility] Comment on above: Order Comment: DAKOT A AND SUKHJINDER TRIED Performed By: #### C K, HS TROP #### [address] Mean Corpuscular HGB Conc 33.7 g/dL Normal 32.5-35.6 [facility] Comment on above: Order Comment: DAKOT A AND SUKHJINDER TRIED Performed By: #### C K, HS TROP #### [address] Monocytes (Bld) [#/Vol] 0.8 10*3/uL Normal 0.0-0.8 [facility] Comment on above: Order Comment: DAKOT A AND SUKHJINDER TRIED Performed By: #### C K, HS TROP #### [facility] [address] [place] [address] [place] Monocytes/100 WBC (Bld) 9.2 % Normal . [facility] Comment on above: Order Comment: DAKOT A AND SUKHJINDER TRIED Performed By: #### C K, HS TROP #### [facility] [address] [place] [address] [place] Neutrophils (Bld) [#/Vol] 4.8 10*3/uL Normal 1.8-7.7 [facility] Comment on above: Order Comment: DAKOT A AND SUKHJINDER TRIED Performed By: #### C K, HS TROP #### [address] Neutrophils/100 WBC (Bld) 54.8 % Normal . [facility] Comment on above: Order Comment: DAKOT A AND SUKHJINDER TRIED Performed By: #### C K, HS TROP #### [address] NRBC% 0.0 /100{WBC} Normal 0-0.5 [facility] Comment on above: Order Comment: DAKOT A AND SUKHJINDER TRIED Performed By: #### C K, HS TROP #### [facility] [address] [place] [id number] [facility] Platelet mean volume (Bld) [Entitic vol] 9.1 fL Normal 6.6-10.1 [facility] Comment on above: Order Comment: DAKOT A AND SUKHJINDER TRIED Performed By: #### C K, HS TROP #### [facility] [address] [place] [id number] [place] Platelets (Bld) [#/Vol] 159 10*3/uL Normal 150-450 [facility] Comment on above: Order Comment: DAKOT A AND SUKHJINDER TRIED Performed By: #### C K, HS TROP #### [facility] [address] [place] [address] [place] RBC (Bld) [#/Vol] 3.17 10*6/uL Low 3.90-5.60 [facility] Comment on above: Order Comment: DAKOT A AND SUKHJINDER TRIED Performed By: #### C K, HS TROP #### [address] WBC (Bld) [#/Vol] 8.7 10*3/uL Normal 4.1-10.5 [facility] Comment on above: Order Comment: DAKOT A AND SUKHJINDER TRIED Performed By: #### C K, HS TROP #### [address] Comprehensive Metabolic Pane anthony 10-20-2023 Albumin [Mass/Vol] 3.7 g/dL Normal 3.5-5.7 [facility] Comment on above: Order Comment: DAKOT A AND SUKHJINDER TRIED Performed By: #### C K, HS TROP #### [address] Anion gap [Moles/Vol] 16.9 mmol/L High 6.0-15.0 [facility] Comment on above: Order Comment: DAKOT A AND SUKHJINDER TRIED Performed By: #### C K, HS TROP #### [address] Calcium [Mass/Vol] 8.5 mg/dL Low 8.6-10.3 [facility] Comment on above: Order Comment: DAKOT A AND SUKHJINDER TRIED Performed By: #### C K, HS TROP #### [address] Chloride [Moles/Vol] 107 mmol/L Normal 98-107 [facility] Comment on above: Order Comment: DAKOT A AND SUKHJINDER TRIED Performed By: #### C K, HS TROP #### [address] CO2 [Moles/Vol] 22.1 mmol/L Normal 21.0-31.0 [facility] Comment on above: Order Comment: DAKOT A AND SUKHJINDER TRIED Performed By: #### C K, HS TROP #### [address] [place] [address] [place] Creatinine [Mass/Vol] 2.72 mg/dL High 0.70-1.30 [facility] Comment on above: Order Comment: DAKOT A AND SUKHJINDER TRIED Performed By: #### C K, HS TROP #### [facility] [address] [place] [address] [place] Creatinine Clr Calc Pharmacy 22.40 Normal [facility] Comment on above: Order Comment: DAKOT A AND SUKHJINDER TRIED Performed By: #### C K, HS TROP #### [facility] [address] [place] [address] [place] GFR/1.73 sq M.predicted MDRD (S/P/Bld) [Vol rate/Area] 22.060 mL/min/{1.73_m2} Normal [facility] Comment on above: Order Comment: DAKOT A AND SUKHJINDER TRIED Performed By: #### C K, HS TROP #### [place] [address] [place] Glucose [Mass/Vol] 151 mg/dL High 70-100 [facility] Comment on above: Order Comment: DAKOT A AND SUKHJINDER TRIED Result Comment: [place] Glucose Reference Range is dependent on time and content of last meal. Glucose of more than 200 mg/dL in a nonstressed, ambulatory subject supports the diagnosis of Diabetes Mellitus. ADA recommended reference range Performed By: #### C K, HS TROP #### [facility] [address] [place] [address] [place] Potassium [Moles/Vol] 5.0 mmol/L Normal 3.5-5.1 [facility] Comment on above: Order Comment: DAKOT A AND SUKHJINDER TRIED Performed By: #### C K, HS TROP #### [facility] [address] [place] [phone] [place] Sodium [Moles/Vol] 141 mmol/L Normal 136-145 [facility] Comment on above: Order Comment: DAKOT A AND SUKHJINDER TRIED Performed By: #### C K, HS TROP #### [facility] [address] [place] [address] [place] Urea nitrogen [Mass/Vol] 56 mg/dL High 7-25 [facility] Comment on above: Order Comment: DAKOT A AND SUKHJINDER TRIED Performed By: #### C K, HS TROP #### [facility] [address] [place] [id number] [facility] Creatine Kinaseon 10-20-2023 CK [Catalytic activity/Vol] 329 U/L High 30-223 [facility] Comment on above: Performed By: #### H S TROP, CK ####[facility] [id number] [place] [id number] [facility] CK [Catalytic activity/Vol] 300 U/L High 30-223 [facility] Comment on above: Order Comment: DAKOT A AND SUKHJINDER TRIED Performed By: #### H S TROP, CK #### [facility] [address] ECG 12 lead ECGon 10-20-2023 ECG 12 lead ECG [facility] [place] [address] [place] [address] Electrocardiograph Report Signed Patient: Rachel Hollingsworth MR#: [id number] : 1935 Acct:[id number] Age/Sex: 88 / M ADM Date: 10/20/23 Loc: Room: [address] [place] [address] Type: ADM IN Attending Dr: Norman Figueroa DO Ordering Provider: Dandre Oleary MD Date of Service: 10/20/23 ECG/ECG 12 lead ECG: NSTEMI Copies to: Test Reason : Blood Pressure : / mmHG Vent. Rate : 071 BPM Atrial Rate : 071 BPM P-R Int : 226 ms QRS Dur : 146 ms QT Int : 446 ms P-R-T Axes : 091 -07 215 degrees QTc Int : 484 ms Poor data quality, interpretation may be adversely affected Sinus rhythm with 1st degree AV block Right bundle branch block T wave abnormality, consider inferolateral ischemia Abnormal ECG When compared with ECG of 02-DEC-2021 13:10, T wave inversion now evident in Inferior leads T wave inversion now evident in Anterolateral leads Confirmed by Benjamin Mora ([id number]) on 10/21/2023 9:37:15 PM Referred By: Electronically Signed By:Benjamin Mora Transcribed By: MUS Signed By Benjamin Mora MD 10/21/23 2137 Normal [facility] Glucose Poct Glucometerson 0 10-20-2023 Glucose [Mass/Vol] 181 mg/dL Normal [facility] Comment on above: Result Comment: [facility] Glucose Reference Range is dependent on time and content of last meal. Glucose of more than 200 mg/dL in a nonstressed, ambulatory subject supports the diagnosis of Diabetes Mellitus. PERFORMED BY: [facility] [address] [place] [address] PATHOLOGIST SUBSTATION MAINTENANCE TECHNICIAN KARINA JOYNER M.D. Performed By: #### G LULS ####Point of Care testing, Glucose [Mass/Vol] 223 mg/dL Normal [facility] Comment on above: Result Comment: [facility] Glucose Reference Range is dependent on time and content of last meal. Glucose of more than 200 mg/dL in a nonstressed, ambulatory subject supports the diagnosis of Diabetes Mellitus. PERFORMED BY: [facility] [address] [place] [address] PATHOLOGIST SUBSTATION MAINTENANCE TECHNICIAN KARINA JOYNER M.D. Performed By: #### G LULS ####Point of Care testing, Glucose mean value [Mass/vol ume] in Blood Estimated from glycated hemoglobinOrdered By: Dandre Oleary on 10-20-2023 Average glucose Estimated from glycated hemoglobin (Bld) [Mass/Vol] 206 mg/dL [facility] Hemoglobin A1c percentageOrd ered By: Dandre Oleary on 10-20-2023 HbA1c (Bld) [Mass fraction] 8.8 % High 4.3-5.6 [facility] Comment on above: Increased risk for d iabetes: 5.7 - 6.4diabetes: >6.4glycemic control for adults with diabetes: <7.0 Order Comment: FOX WILDER TRIED Result Comment: Incr eased risk for diabetes: 5.7 - 6.4 diabetes: >6.4 glycemic control for adults with diabetes: <7.0 Performed By: #### A 1C [facility] eA, T3F ####[place] [id number] [place] [id number] [facility] Magnesium [Mass/volume] in S lesley or PlasmaOrdered By: Dandre Oleary on 10-20-2023 Magnesium [Mass/Vol] 2.1 mg/dL Normal 1.9-2.7 [facility] Comment on above: Order Comment: FOX WILDER TRIED Performed By: #### C K, HS TROP #### [facility] [address] [place] [phone] [facility] Partial Thromboplastin Timeo n 10-20-2023 aPTT Coag (Bld) [Time] 32.4 s Normal 25.1-36.5 [facility] Comment on above: Result Comment: A he matocrit value greater than 55% may lead to inaccurate results in coagulation testing. Patients having hematocrit values >55% require a special collection tube for coagulation studies. Please contact the laboratory at [phone] for redraw instructions. PERFORMED BY: [place] [address] PATHOLOGIST SUBSTATION MAINTENANCE TECHNICIAN KARINA JOYNER M.D. Performed By: #### P TT, CBC, PT ####[place] [id number] [facility] Protein [Mass/volume] in Ser um or PlasmaOrdered By: Dandre Oleary on 10-20-2023 Protein [Mass/Vol] 6.1 g/dL Low 6.4-8.9 [facility] Comment on above: Order Comment: FOX WILDER TRIED Performed By: #### C K, HS TROP #### [facility] [address] [id number] [place] Prothrombin Time INRon 10-19 INR Coag (PPP) [Relative time] 1.1 {INR} Normal [facility] Comment on above: Result Comment: INR Therapeutic Range A) Pre- and Peroperative OAT started two weeks before surgery. NOT HIP SURGERY: 1.5 - 2.5 HIP SURGERY: 2 - 3 B) Primary and secondary prevention of venous THROMBOSIS: 2 - 3 C) Active venous thrombosis, pulmonary embolism and prevention of recurrent venous thrombosis: 2 - 3 D) Prevention of arterial thromboembolism including patients with mechanical heart valves: 3 - 4.5 Performed By: #### P TT, CBC, PT ####[address] PT Coag (PPP) [Time] 13.1 s High 9.0-12.9 [facility] Comment on above: Result Comment: A he matocrit value greater than 55% may lead to inaccurate results in coagulation testing. Patients having hematocrit values >55% require a special collection tube for coagulation studies. Please contact the laboratory at [phone] for redraw instructions. Performed By: #### P TT, CBC, PT ####[address] Serum globulin measurement b y calculation (mass/volume)Ordered By: Dandre Oleary on 10-20-2023 Globulin (S) [Mass/Vol] 2.4 g/dL Normal [facility] Comment on above: Order Comment: DAKOT A AND SUKHJINDER TRIED Performed By: #### C K, HS TROP #### [address] Serum or plasma albumin/glob ulin mass ratioOrdered By: Dandre Oleary on 10-20-2023 Albumin/Globulin [Mass ratio] 1.5 {ratio} Normal [facility] Comment on above: Order Comment: DAKOT A AND SUKHJINDER TRIED Performed By: #### C K, HS TROP #### [address] Thyrotropin [Units/volume] i n Serum or PlasmaOrdered By: Dandre Oleary on 10-20-2023 TSH Qn 10.45 m[IU]/L High 0.45-5.33 [facility] Comment on above: Order Comment: DAKOT A AND SUKHJINDER TRIED Result Comment: PERF ORMED BY: [place] [address] PATHOLOGIST SUBSTATION MAINTENANCE TECHNICIAN KARINA JOYNER M.D. Performed By: #### C K, HS TROP #### [address] Thyroxine (T4) free [Mass/vo lume] in Serum or PlasmaOrdered By: Dandre Mamta on 10-20-2023 Free T4 [Mass/Vol] 0.81 ng/dL Normal 0.61-1.12 [facility] Comment on above: Order Comment: FOX WILDER TRIED Performed By: #### C K, HS TROP #### [facility] [address] [place] [address] Triiodothyronine (T3) Freeon 10-20-2023 Triiodothyronine (T3) Free 2.45 pg/mL Low 2.50-3.90 [facility] Comment on above: Order Comment: FOX WILDER TRIED Result Comment: PERF ORMED BY: [place] [address] PATHOLOGIST SUBSTATION MAINTENANCE TECHNICIAN KARINA JOYNER M.D. Performed By: #### A 1C WTH eA, T3F ####[address] Triiodothyronine (T3) Free [ Mass/volume] in Serum or PlasmaOrdered By: Dandre Mamta on 10-20-2023 Free T3 [Mass/Vol] 2.45 pg/mL 2.50-3.90 [facility] Troponin I High Sensitivityo n 10-20-2023 Troponin I High Sensitivity 31028.2 pg/mL Off scale high 0.0-20.0 [facility] Comment on above: Result Comment: Crit ical Result : Called to and read back by: JERARDO WILKINS at: 10/20/2023 18:36:10 by:MAGDA PERFORMED BY: [place] [address] PATHOLOGIST SUBSTATION MAINTENANCE TECHNICIAN KARINA JOYNER M.D. Performed By: #### H S TROP, CK ####[address] Troponin I High Sensitivity 54604.6 pg/mL Off scale high 0.0-20.0 [facility] Comment on above: Order Comment: FOX WILDER TRIED Result Comment: Crit ical Result : Called to and read back by: PREM BEJARANO at: 10/20/2023 13:59:24 by:[id number] PERFORMED BY: [place] [address] PATHOLOGIST SUBSTATION MAINTENANCE TECHNICIAN KARINA JOYNER M.D. Performed By: #### H S TROP, CK #### [address] Aspartate Amino Transferaseo n 06-06-2023 AST [Catalytic activity/Vol] 15 U/L Normal 13-39 [facility] Comment on above: Performed By: #### C K, HS TROP #### [address] Basic Metabolic Panelon 05-26 Anion gap [Moles/Vol] 14.7 mmol/L Normal 6.0-15.0 [facility] Comment on above: Performed By: #### C K, HS TROP #### [address] Calcium [Mass/Vol] 9.2 mg/dL Normal 8.6-10.3 [facility] Comment on above: Performed By: #### C K, HS TROP #### [address] Chloride [Moles/Vol] 101 mmol/L Normal 98-107 [facility] Comment on above: Performed By: #### C K, HS TROP #### [address] CO2 [Moles/Vol] 28.1 mmol/L Normal 21.0-31.0 [facility] Comment on above: Performed By: #### C K, HS TROP #### [address] Creatinine [Mass/Vol] 2.15 mg/dL High 0.70-1.30 [facility] Comment on above: Performed By: #### C K, HS TROP #### [place] [address] [place] GFR/1.73 sq M.predicted MDRD (S/P/Bld) [Vol rate/Area] 29.435 mL/min/{1.73_m2} Normal [facility] Comment on above: Performed By: #### C K, HS TROP #### [address] Glucose [Mass/Vol] 194 mg/dL High 70-100 [facility] Comment on above: Result Comment: [facility] Glucose Reference Range is dependent on time and content of last meal. Glucose of more than 200 mg/dL in a nonstressed, ambulatory subject supports the diagnosis of Diabetes Mellitus. ADA recommended reference range Performed By: #### C K, HS TROP #### [address] Potassium [Moles/Vol] 4.8 mmol/L Normal 3.5-5.1 [facility] Comment on above: Performed By: #### C K, HS TROP #### [address] Sodium [Moles/Vol] 139 mmol/L Normal 136-145 [facility] Comment on above: Performed By: #### C K, HS TROP #### [address] Urea nitrogen [Mass/Vol] 37 mg/dL High 7-25 [facility] Comment on above: Performed By: #### C K, HS TROP #### [address] Thyroid Stimulating Hormoneo n 06-06-2023 TSH Qn 38.42 m[IU]/L High 0.45-5.33 [facility] Comment on above: Result Comment: PERF ORMED BY: [place] [address] PATHOLOGIST SUBSTATION MAINTENANCE TECHNICIAN KARINA JOYNER M.D. Performed By: #### C K, HS TROP #### [address] XR chest 2V*on 06-06-2023 XR chest 2V* [facility] [place] [address] XRay Report Signed Patient: Rachel Hollingsworth SR MR#: [id number] : 1935 Acct:[id number] Age/Sex: 87 / M ADM Date: 06/06/23 Loc: RT Room: Type: [facility] Attending Dr: Felice Lyons MD Copies to: Felice Lyons MD, [facility] Ordering Provider: Felice Lyons MD, [facility] Date of Service: 06/06/23 XR/XR chest 2V*: I48.91,Z72.53 Chest 2 views CLINICAL HISTORY: Long-term medication use. COMPARISON: Chest 11/30/2021. FINDINGS: Post CABG changes. Heart is normal in size. No consolidation pneumothorax pleural effusion or free air. XR/XR chest 2V* IMPRESSION: NO ACUTE CARDIOPULMONARY ABNORMALITY. Impression dictated by: Carlton Simon Jr., D.O.06/06/2023 3:58 PM Dictation Location: [place] [address] Transcribed By: [facility] 06/06/23 155 Dictated By: Carlton Simon Jr, DO 06/06/23 1558 Signed By: 06/06/23 1558 Normal [facility] BNPon 05-08-2022 Natriuretic peptide B (Bld) [Mass/Vol] 1113.0 pg/mL Normal <=1,800.0 [facility] Comment on above: Performed By: #### C MP, BNP, CRP #### [facility] [address] [address] [address] Alma Prescott CBC AUTO DIFFon 05-08-2022 BASO # 0.0 103/ul Normal 0.0-0.1 [facility] Comment on above: Performed By: #### A ST, LIPID, ALT, BMP #### [facility] [address] [address] [address] Alma Prescott Basophils/100 WBC (Bld) 0.1 % Critically low 0.2-2.0 [facility] Comment on above: Performed By: #### A ST, LIPID, ALT, BMP #### [facility] [address] [place] [address] Dr. Alma Prescott EO # 0.0 103/ul Normal 0.0-0.7 [facility] Comment on above: Performed By: #### A ST, LIPID, ALT, BMP #### [facility] [address] [place] [address] Dr. Alma Prescott Eosinophils/100 WBC (Bld) 0.0 % Critically low 0.9-7.0 [facility] Comment on above: Performed By: #### A ST, LIPID, ALT, BMP #### [facility] [address] [place] [address] Dr. Alma Prescott Erythrocyte distribution width (RBC) [Ratio] 13.6 % Normal 11.0-15.0 [facility] Comment on above: Performed By: #### A ST, LIPID, ALT, BMP #### [facility] [address] [place] [address] Dr. Alma Prescott Hematocrit (Bld) [Volume fraction] 32.3 % Critically low 42.0-54.0 [facility] Comment on above: Performed By: #### A ST, LIPID, ALT, BMP #### [facility] [address] [place] [address] Dr. Alma Prescott Hemoglobin (Bld) [Mass/Vol] 11.2 g/dL Critically low 14.0-18.0 [facility] Comment on above: Performed By: #### A ST, LIPID, ALT, BMP #### [facility] [address] [place] [address] Dr. Alma Prescott IG # 0.03 10e3/ul Normal 0.00-0.03 [facility] Comment on above: Performed By: #### A ST, LIPID, ALT, BMP #### [facility] [address] [place] [address] Dr. Alma Prescott IG % 0.4 % Normal 0.0-0.5 [facility] Comment on above: Performed By: #### A ST, LIPID, ALT, BMP #### [facility] [address] [place] [address] Dr. Alma Prescott LYMPH # 1.4 103/ul Normal 1.2-3.8 [facility] Comment on above: Performed By: #### A ST, LIPID, ALT, BMP #### [facility] [address] [place] [address] Dr. Alma Prescott Lymphocytes/100 WBC (Bld) 17.6 % Critically low 20.5-60.0 [facility] Comment on above: Performed By: #### A ST, LIPID, ALT, BMP #### [facility] [address] [place] [address] Dr. Alma Prescott MANUAL DIFF REQ NO Normal [facility] Comment on above: Performed By: #### A ST, LIPID, ALT, BMP #### [facility] [address] [place] [address] Dr. Alma Prescott MCH (RBC) [Entitic mass] 30.2 pg Normal 25.9-34.0 [facility] Comment on above: Performed By: #### A ST, LIPID, ALT, BMP #### [facility] [address] [place] [address] Dr. Alma Prescott MCHC (RBC) [Mass/Vol] 34.7 g/dL Normal 29.9-35.2 [facility] Comment on above: Performed By: #### A ST, LIPID, ALT, BMP #### [facility] [address] [place] [address] Dr. Alma Prescott MCV (RBC) [Entitic vol] 87.1 fL Normal 80.0-94.0 [facility] Comment on above: Performed By: #### A ST, LIPID, ALT, BMP #### [facility] [address] [place] [address] Dr. Alma Prescott MONO # 0.5 103/ul Normal 0.3-0.8 [facility] Comment on above: Performed By: #### A ST, LIPID, ALT, BMP #### [facility] [address] [place] [address] Dr. Alma Prescott Monocytes/100 WBC (Bld) 6.2 % Normal 1.7-12.0 [facility] Comment on above: Performed By: #### A ST, LIPID, ALT, BMP #### [facility] [address] [address] [address] Alma Prescott NEUT # 5.9 103/ul Normal 1.4-6.5 [facility] Comment on above: Performed By: #### A ST, LIPID, ALT, BMP #### [facility] [address] [place] [address] Dr. Alma Prescott Neutrophils/100 WBC (Bld) 75.7 % Critically high 43.0-75.0 [facility] Comment on above: Performed By: #### A ST, LIPID, ALT, BMP #### [facility] [address] [place] [address] Dr. Alma Prescott Platelet mean volume (Bld) [Entitic vol] 10.6 fL Normal 9.5-13.5 [facility] Comment on above: Performed By: #### A ST, LIPID, ALT, BMP #### [facility] [address] [place] [address] Dr. Alma Prescott PLT 198 103/ul Normal 150-450 [facility] Comment on above: Performed By: #### A ST, LIPID, ALT, BMP #### [facility] [address] [place] [address] Dr. Alma Prescott RBC 3.71 106/ul Critically low 4.70-6.10 [facility] Comment on above: Performed By: #### A ST, LIPID, ALT, BMP #### [facility] [address] [place] [address] Dr. Alma Prescott WBC 7.9 103/ul Normal 4.0-11.0 [facility] Comment on above: Performed By: #### A ST, LIPID, ALT, BMP #### [facility] [address] [place] [address] Dr. Alma Prescott CULTURE URINEon 05-08-2022 CULTURE URINE Culture Observations : MODERATE GROWTH OF MIXED SKIN YOEL. NO POTENTIAL PATHOGENS SEEN. Normal [facility] Comment on above: Performed By: #### C MP, BNP #### [facility] [address] [place] [address] Dr. Alma Prescott ER URINE PROFILEon 2 Bilirubin Ql (U) Negative Normal NEGATIVE [facility] Comment on above: Performed By: #### A ST, LIPID, ALT, BMP #### [facility] [address] [address] [address] Alma Prescott Clarity (U) CLEAR Normal CLEAR [facility] Comment on above: Performed By: #### A ST, LIPID, ALT, BMP #### [facility] [address] [address] [address] Alma Prescott Color (U) LT. YELLOW Normal YELLOW [facility] Comment on above: Performed By: #### A ST, LIPID, ALT, BMP #### [facility] [address] [address] [address] Alma MCNAMARA A micrscopic examina tion will be performed if indicated. Normal [facility] Comment on above: Performed By: #### A ST, LIPID, ALT, BMP #### [facility] [address] [address] [address] Alma Prescott Glucose Ql (U) >1000 Abnormal NEGATIVE The [facility] Comment on above: Performed By: #### A ST, LIPID, ALT, BMP #### [facility] [address] [address] [address] Alma Prescott Hemoglobin Ql (U) MODERATE Abnormal NEGATIVE The [facility] Comment on above: Performed By: #### A ST, LIPID, ALT, BMP #### [facility] [address] [address] [address] Alma Prescott Ketones Ql (U) Negative Normal NEGATIVE The [facility] Comment on above: Performed By: #### A ST, LIPID, ALT, BMP #### [facility] [address] [address] [address] Alma Prescott LEUKOCYTES Negative Normal NEGATIVE [facility] Comment on above: Performed By: #### A ST, LIPID, ALT, BMP #### [facility] [address] [address] [address] Alma Prescott Nitrite Ql (U) Negative Normal NEGATIVE The [facility] Comment on above: Performed By: #### A ST, LIPID, ALT, BMP #### [facility] [address] [address] [address] Alma Prescott pH (U) 5.0 [pH] Normal 5-9 [facility] Comment on above: Performed By: #### A ST, LIPID, ALT, BMP #### [facility] [address] [place] [address] Dr. Alma Prescott SPEC GRAVITY 1.025 Normal 1.005-<=1. 025 [facility] Comment on above: Performed By: #### A ST, LIPID, ALT, BMP #### [facility] [address] [place] [address] Dr. Alma Prescott UA PROTEIN >300 Abnormal NEGATIVE/ TRACE [facility] Comment on above: Performed By: #### A ST, LIPID, ALT, BMP #### [facility] [address] [place] [address] Dr. Alma Prescott UR MICRO IND INDICATED Normal [facility] Comment on above: Performed By: #### A ST, LIPID, ALT, BMP #### [facility] [address] [place] [address] Dr. Alma Prescott Urobilinogen Qn (U) 0.2 {Chema'U}/dL Normal 0.2 - 1. 0 [facility] Comment on above: Performed By: #### A ST, LIPID, ALT, BMP #### [facility] [address] [place] [address] Dr. Alma Prescott POINT OF CARE GLUCOSEon 04-25 Glucose [Mass/Vol] 371 mg/dL Critically high 74-106 [facility] Comment on above: Performed By: #### C MP, BNP, CRP #### [facility] [address] [place] [address] Dr. Alma Prescott Glucose [Mass/Vol] 454 mg/dL Critically high 74-106 [facility] Comment on above: Performed By: #### A ST, LIPID, ALT, BMP #### [facility] [address] [place] [address] Dr. Alma Prescott PROF 14(COMP METB)on 022 Albumin [Mass/Vol] 2.0 g/dL Critically low 3.4-5.0 [facility] Comment on above: Performed By: #### C MP, BNP, CRP #### [facility] [address] [address] [address] Alma Prescott Albumin/Globulin [Mass ratio] 0.6 {ratio} Normal [facility] Comment on above: Performed By: #### C MP, BNP, CRP #### [facility] [address] [address] [address] Alma Prescott ALP [Catalytic activity/Vol] 57 U/L Normal 46-116 [facility] Comment on above: Performed By: #### C MP, BNP, CRP #### [facility] [address] [address] [address] Alma Prescott ALT [Catalytic activity/Vol] 52 U/L Normal 16-63 [facility] Comment on above: Performed By: #### C MP, BNP, CRP #### [facility] [address] [address] [address] Alma Prescott Anion gap [Moles/Vol] 14.8 mmol/L Normal [facility] Comment on above: Performed By: #### C MP, BNP, CRP #### [facility] [address] [address] [address] Alma Prescott AST [Catalytic activity/Vol] 62 U/L Critically high 15-37 [facility] Comment on above: Performed By: #### C MP, BNP, CRP #### [facility] [address] [address] [address] Alma Prescott Bilirubin [Mass/Vol] 0.1 mg/dL Critically low 0.2-1.0 [facility] Comment on above: Performed By: #### C MP, BNP, CRP #### [facility] [address] [address] [address] Alma Prescott Calcium [Mass/Vol] 8.1 mg/dL Critically low 8.5-10.1 [facility] Comment on above: Performed By: #### C MP, BNP, CRP #### [facility] [address] [address] [address] Alma Prescott Chloride [Moles/Vol] 99 mmol/L Normal 98-107 [facility] Comment on above: Performed By: #### C MP, BNP, CRP #### [facility] [address] [address] [address] Alma Prescott CO2 [Moles/Vol] 19.8 mmol/L Critically low 21.0-32.0 [facility] Comment on above: Performed By: #### C MP, BNP, CRP #### [facility] [address] [address] [address] Alma Prescott Creatinine [Mass/Vol] 2.80 mg/dL Critically high 0.70-1.30 [facility] Comment on above: Performed By: #### C MP, BNP, CRP #### [facility] [address] [place] [address] Dr. Alma Prescott EGFR-AF QATARI 26 mL/min/1.73m2 Critically low >=60 [facility] Comment on above: Performed By: #### C MP, BNP, CRP #### [facility] [address] [address] [address] Alma Prescott EGFR-NON AF QATARI 22 mL/min/1.73m2 Critically low >=60 [facility] Comment on above: Performed By: #### C MP, BNP, CRP #### [facility] [address] [address] [address] Alma Prescott Globulin (S) [Mass/Vol] 3.5 g/dL Normal [facility] Comment on above: Performed By: #### C MP, BNP, CRP #### [facility] [address] [address] [address] Alma Prescott Glucose [Mass/Vol] 330 mg/dL Critically high 74-106 [facility] Comment on above: Performed By: #### C MP, BNP, CRP #### [facility] [address] [address] [address] Alma Prescott Potassium [Moles/Vol] 3.6 mmol/L Normal 3.5-5.1 [facility] Comment on above: Performed By: #### C MP, BNP, CRP #### [facility] [address] [place] [address] Dr. Alma Prescott Protein [Mass/Vol] 5.5 g/dL Critically low 6.4-8.2 [facility] Comment on above: Performed By: #### C MP, BNP, CRP #### [facility] [address] [place] [address] Dr. Alma Prescott Sodium [Moles/Vol] 130 mmol/L Critically low 136-145 Th [facility] Comment on above: Performed By: #### C MP, BNP, CRP #### [facility] [address] [place] [address] Dr. Alma Prescott Urea nitrogen [Mass/Vol] 63.0 mg/dL Critically high 7.0-18.0 [facility] Comment on above: Performed By: #### C MP, BNP, CRP #### [facility] [address] [place] [address] Dr. Alma Prescott Urea nitrogen/Creatinine [Mass ratio] 22.5 mg/mg Normal [facility] Comment on above: Performed By: #### C MP, BNP, CRP #### [facility] [address] [place] [address] Dr. Alma Prescott URINE MICROSCOPIC ONLYon BACTERIA MODERATE Abnormal NONE SEEN [facility] Comment on above: Performed By: #### A ST, LIPID, ALT, BMP #### [facility] [address] [place] [address] Dr. Alma Prescott Bacteria identified Cx Nom (U) INDICATED Normal [facility] Comment on above: Performed By: #### A ST, LIPID, ALT, BMP #### [facility] [address] [place] [address] Dr. Alma Prescott CAST NONE SEEN Normal NONE SEEN [facility] Comment on above: Performed By: #### A ST, LIPID, ALT, BMP #### [facility] [address] [place] [address] Dr. Alma Prescott Crystals LM Nom (Urine sed) NONE SEEN Normal NONE SEEN [facility] Comment on above: Performed By: #### A ST, LIPID, ALT, BMP #### [facility] [address] [place] [address] Dr. Alma Prescott Epithelial cells LM Ql (Urine sed) FEW Abnormal NONE SEEN /RARE [facility] Comment on above: Performed By: #### A ST, LIPID, ALT, BMP #### [facility] [address] [place] [address] Dr. Alma Prescott MUCOUS NONE SEEN Normal NONE SEEN [facility] Comment on above: Performed By: #### A ST, LIPID, ALT, BMP #### [facility] [address] [place] [address] Dr. Alma Prescott RBC 0-2 Normal 0-2 [facility] Comment on above: Performed By: #### A ST, LIPID, ALT, BMP #### [facility] [address] [place] [address] Dr. Alma Prescott WBC 0-2 Abnormal NONE SEEN [facility] Comment on above: Performed By: #### A ST, LIPID, ALT, BMP #### [facility] [address] [place] [address] Dr. Alma Prescott BNPon 05-07-2022 Natriuretic peptide B (Bld) [Mass/Vol] 1091.0 pg/mL Normal <=1,800.0 [facility] Comment on above: Performed By: #### C MP, BNP #### [facility] [address] [place] [address] Dr. Alma Prescott CBC AUTO DIFFon 05-07-2022 BASO # 0.0 103/ul Normal 0.0-0.1 [facility] Comment on above: Performed By: #### A ST, LIPID, ALT, BMP #### [facility] [facility] [address] [place] [address] Dr. Alma Prescott Basophils/100 WBC (Bld) 0.1 % Critically low 0.2-2.0 [facility] Comment on above: Performed By: #### A ST, LIPID, ALT, BMP #### [facility] [address] [place] [address] Dr. Alma Prescott EO # 0.0 103/ul Normal 0.0-0.7 [facility] Comment on above: Performed By: #### A ST, LIPID, ALT, BMP #### [facility] [address] [place] [address] Dr. Alma Prescott Eosinophils/100 WBC (Bld) 0.0 % Critically low 0.9-7.0 [facility] Comment on above: Performed By: #### A ST, LIPID, ALT, BMP #### [facility] [address] [place] [address] Dr. Alma Prescott Erythrocyte distribution width (RBC) [Ratio] 13.6 % Normal 11.0-15.0 [facility] Comment on above: Performed By: #### A ST, LIPID, ALT, BMP #### [facility] [address] [place] [address] Dr. Alma Prescott Hematocrit (Bld) [Volume fraction] 33.4 % Critically low 42.0-54.0 [facility] Comment on above: Performed By: #### A ST, LIPID, ALT, BMP #### [facility] [address] [place] [address] Dr. Alma Prescott Hemoglobin (Bld) [Mass/Vol] 11.4 g/dL Critically low 14.0-18.0 [facility] Comment on above: Performed By: #### A ST, LIPID, ALT, BMP #### [facility] [address] [place] [address] Dr. Alma Prescott IG # 0.06 10e3/ul Critically high 0.00-0.03 [facility] Comment on above: Performed By: #### A ST, LIPID, ALT, BMP #### [facility] [address] [place] [address] Dr. Alma Prescott IG % 0.7 % Critically high 0.0-0.5 [facility] Comment on above: Performed By: #### A ST, LIPID, ALT, BMP #### [facility] [address] [place] [address] Dr. Alma Prescott LYMPH # 1.3 103/ul Normal 1.2-3.8 [facility] Comment on above: Performed By: #### A ST, LIPID, ALT, BMP #### [facility] [address] [place] [address] Dr. Alma Prescott Lymphocytes/100 WBC (Bld) 14.6 % Critically low 20.5-60.0 [facility] Comment on above: Performed By: #### A ST, LIPID, ALT, BMP #### [facility] [address] [place] [address] Dr. Alma Prescott MANUAL DIFF REQ NO Normal [facility] Comment on above: Performed By: #### A ST, LIPID, ALT, BMP #### [facility] [address] [place] [address] Dr. Alma Prescott MCH (RBC) [Entitic mass] 30.5 pg Normal 25.9-34.0 [facility] Comment on above: Performed By: #### A ST, LIPID, ALT, BMP #### [facility] [address] [place] [address] Dr. Alma Prescott MCHC (RBC) [Mass/Vol] 34.1 g/dL Normal 29.9-35.2 [facility] Comment on above: Performed By: #### A ST, LIPID, ALT, BMP #### [facility] [address] [place] [address] Dr. Alma Prescott MCV (RBC) [Entitic vol] 89.3 fL Normal 80.0-94.0 [facility] Comment on above: Performed By: #### A ST, LIPID, ALT, BMP #### [facility] [address] [place] [address] Dr. Alma Prescott MONO # 0.5 103/ul Normal 0.3-0.8 [facility] Comment on above: Performed By: #### A ST, LIPID, ALT, BMP #### [facility] [address] [place] [address] Dr. Alma Prescott Monocytes/100 WBC (Bld) 5.5 % Normal 1.7-12.0 [facility] Comment on above: Performed By: #### A ST, LIPID, ALT, BMP #### [facility] [address] [place] [address] Dr. Alma Prescott NEUT # 7.1 103/ul Critically high 1.4-6.5 [facility] Comment on above: Performed By: #### A ST, LIPID, ALT, BMP #### [facility] [address] [place] [address] Dr. Alma Prescott Neutrophils/100 WBC (Bld) 79.1 % Critically high 43.0-75.0 [facility] Comment on above: Performed By: #### A ST, LIPID, ALT, BMP #### [facility] [address] [place] [address] Dr. Alma Prescott Platelet mean volume (Bld) [Entitic vol] 10.7 fL Normal 9.5-13.5 [facility] Comment on above: Performed By: #### A ST, LIPID, ALT, BMP #### [facility] [address] [place] [address] Dr. Alma Prescott PLT 211 103/ul Normal 150-450 [facility] Comment on above: Performed By: #### A ST, LIPID, ALT, BMP #### [facility] [address] [place] [address] Dr. Alma Prescott RBC 3.74 106/ul Critically low 4.70-6.10 [facility] Comment on above: Performed By: #### A ST, LIPID, ALT, BMP #### [facility] [address] [place] [address] Dr. Alma Prescott WBC 9.0 103/ul Normal 4.0-11.0 [facility] Comment on above: Performed By: #### A ST, LIPID, ALT, BMP #### [facility] [address] [place] [address] Dr. Alma Prescott POINT OF CARE GLUCOSEon 04-25 Glucose [Mass/Vol] 474 mg/dL Critically high 74-106 [facility] Comment on above: Performed By: #### A ST, LIPID, ALT, BMP #### [facility] [address] [place], [place] [id number] Dr. Alma Prescott Glucose [Mass/Vol] 371 mg/dL Critically high 74-106 [facility] Comment on above: Performed By: #### C BC #### [facility] [address] [place] [address] Dr. Alma Prescott Glucose [Mass/Vol] 439 mg/dL Critically high 74-106 [facility] Comment on above: Performed By: #### A ST, LIPID, ALT, BMP #### [facility] [address] [place] [address] Dr. Alma Prescott PROF 14(COMP METB)on 022 Albumin [Mass/Vol] 2.0 g/dL Critically low 3.4-5.0 [facility] Comment on above: Performed By: #### C MP, BNP #### [facility] [address] [place] [address] Dr. Alma Prescott Albumin/Globulin [Mass ratio] 0.5 {ratio} Normal [facility] Comment on above: Performed By: #### C MP, BNP #### [facility] [address] [place] [address] Dr. Alma Prescott ALP [Catalytic activity/Vol] 53 U/L Normal 46-116 [facility] Comment on above: Performed By: #### C MP, BNP #### [facility] [address] [place] [address] Dr. Alma Prescott ALT [Catalytic activity/Vol] 29 U/L Normal 16-63 [facility] Comment on above: Performed By: #### C MP, BNP #### [facility] [address] [place] [address] Dr. Alma Prescott Anion gap [Moles/Vol] 14.7 mmol/L Normal [facility] Comment on above: Performed By: #### C MP, BNP #### [facility] [address] [place] [address] Dr. Alma Prescott AST [Catalytic activity/Vol] 47 U/L Critically high 15-37 [facility] Comment on above: Performed By: #### C MP, BNP #### [facility] [address] [place] [address] Dr. Alma Prescott Bilirubin [Mass/Vol] 0.2 mg/dL Normal 0.2-1.0 [facility] Comment on above: Performed By: #### C MP, BNP #### [facility] [address] [place] [address] Dr. lAma Prescott Calcium [Mass/Vol] 7.8 mg/dL Critically low 8.5-10.1 Th [facility] Comment on above: Performed By: #### C MP, BNP #### [facility] [address] [place] [address] Dr. Alma Prescott Chloride [Moles/Vol] 98 mmol/L Normal 98-107 [facility] Comment on above: Performed By: #### C MP, BNP #### [facility] [address] [place] [address] Dr. Alma Prescott CO2 [Moles/Vol] 22.2 mmol/L Normal 21.0-32.0 [facility] Comment on above: Performed By: #### C MP, BNP #### [facility] [address] [place] [address] Dr. Alma Prescott Creatinine [Mass/Vol] 2.80 mg/dL Critically high 0.70-1.30 [facility] Comment on above: Performed By: #### C MP, BNP #### [facility] [address] [place] [address] Dr. Alma Prescott EGFR-AF QATARI 26 mL/min/1.73m2 Critically low >=60 [facility] Comment on above: Performed By: #### C MP, BNP #### [facility] [address] [place] [address] Dr. Alma Prescott EGFR-NON AF QATARI 22 mL/min/1.73m2 Critically low >=60 [facility] Comment on above: Performed By: #### C MP, BNP #### [facility] [address] [place] [address] Dr. Alma Prescott Globulin (S) [Mass/Vol] 3.7 g/dL Normal T [facility] Comment on above: Performed By: #### C MP, BNP #### [facility] [address] [place] [address] Dr. Alma Prescott Glucose [Mass/Vol] 323 mg/dL Critically high 74-106 T [facility] Comment on above: Performed By: #### C MP, BNP #### [facility] [address] [place] [address] Dr. Alma Prescott Potassium [Moles/Vol] 3.9 mmol/L Normal 3.5-5.1 [facility] Comment on above: Performed By: #### C MP, BNP #### [facility] [address] [place] [address] Dr. Alma Prescott Protein [Mass/Vol] 5.7 g/dL Critically low 6.4-8.2 [facility] Comment on above: Performed By: #### C MP, BNP #### [facility] [address] [place] [address] Dr. Alma Prescott Sodium [Moles/Vol] 131 mmol/L Critically low 136-145 Th [facility] Comment on above: Performed By: #### C MP, BNP #### [facility] [address] [place] [address] Dr. Alma Prescott Urea nitrogen [Mass/Vol] 58.0 mg/dL Critically high 7.0-18.0 [facility] Comment on above: Performed By: #### C MP, BNP #### [facility] [address] [place] [address] Dr. Alma Prescott Urea nitrogen/Creatinine [Mass ratio] 20.7 mg/mg Normal [facility] Comment on above: Performed By: #### C MP, BNP #### [facility] [address] [place] [address] Dr. Alma Prescott BNPon 05-06-2022 Natriuretic peptide B (Bld) [Mass/Vol] 1590.0 pg/mL Normal <=1,800.0 [facility] Comment on above: Performed By: #### A ST, LIPID, ALT, BMP #### [facility] [address] [place] [address] Dr. Alma Prescott CBC AUTO DIFFon 05-06-2022 BASO # 0.0 103/ul Normal 0.0-0.1 [facility] Comment on above: Performed By: #### A ST, LIPID, ALT, BMP #### [facility] [address] [place] [address] Dr. Alma Prescott Basophils/100 WBC (Bld) 0.8 % Normal 0.2-2.0 [facility] Comment on above: Performed By: #### A ST, LIPID, ALT, BMP #### [facility] [address] [place] [address] Dr. Alma Prescott EO # 0.1 103/ul Normal 0.0-0.7 [facility] Comment on above: Performed By: #### A ST, LIPID, ALT, BMP #### [facility] [address] [place] [address] Dr. Alma Prescott Eosinophils/100 WBC (Bld) 1.4 % Normal 0.9-7.0 [facility] Comment on above: Performed By: #### A ST, LIPID, ALT, BMP #### [facility] [address] [place] [address] Dr. Alma Prescott Erythrocyte distribution width (RBC) [Ratio] 13.6 % Normal 11.0-15.0 [facility] Comment on above: Performed By: #### A ST, LIPID, ALT, BMP #### [facility] [address] [place] [address] Dr. Alma Prescott Hematocrit (Bld) [Volume fraction] 38.1 % Critically low 42.0-54.0 [facility] Comment on above: Performed By: #### A ST, LIPID, ALT, BMP #### [facility] [address] [place] [address] Dr. Alma Prescott Hemoglobin (Bld) [Mass/Vol] 12.8 g/dL Critically low 14.0-18.0 [facility] Comment on above: Performed By: #### A ST, LIPID, ALT, BMP #### [facility] [address] [place] [address] Dr. Alma Prescott IG # 0.01 10e3/ul Normal 0.00-0.03 [facility] Comment on above: Performed By: #### A ST, LIPID, ALT, BMP #### [facility] [address] [place] [address] Dr. Alma Prescott IG % 0.2 % Normal 0.0-0.5 [facility] Comment on above: Performed By: #### A ST, LIPID, ALT, BMP #### [facility] [address] [place] [address] Dr. Alma Prescott LYMPH # 0.9 103/ul Critically low 1.2-3.8 [facility] Comment on above: Performed By: #### A ST, LIPID, ALT, BMP #### [facility] [address] [place] [address] Dr. Alma Prescott Lymphocytes/100 WBC (Bld) 16.8 % Critically low 20.5-60.0 [facility] Comment on above: Performed By: #### A ST, LIPID, ALT, BMP #### [facility] [address] [place] [address] Dr. Alma Prescott MANUAL DIFF REQ NO Normal [facility] Comment on above: Performed By: #### A ST, LIPID, ALT, BMP #### [facility] [address] [place] [address] Dr. Alma Prescott MCH (RBC) [Entitic mass] 30.2 pg Normal 25.9-34.0 [facility] Comment on above: Performed By: #### A ST, LIPID, ALT, BMP #### [facility] [address] [place] [address] Dr. Alma Prescott MCHC (RBC) [Mass/Vol] 33.6 g/dL Normal 29.9-35.2 [facility] Comment on above: Performed By: #### A ST, LIPID, ALT, BMP #### [facility] [address] [place] [address] Dr. Alma Prescott MCV (RBC) [Entitic vol] 89.9 fL Normal 80.0-94.0 [facility] Comment on above: Performed By: #### A ST, LIPID, ALT, BMP #### [facility] [address] [place] [address] Dr. Alma Prescott MONO # 0.1 103/ul Critically low 0.3-0.8 [facility] Comment on above: Performed By: #### A ST, LIPID, ALT, BMP #### [facility] [address] [place] [address] Dr. Alma Prescott Monocytes/100 WBC (Bld) 2.5 % Normal 1.7-12.0 [facility] Comment on above: Performed By: #### A ST, LIPID, ALT, BMP #### [facility] [address] [place] [address] Dr. Alma Prescott NEUT # 4.0 103/ul Normal 1.4-6.5 [facility] Comment on above: Performed By: #### A ST, LIPID, ALT, BMP #### [facility] [address] [place] [address] Dr. Alma Prescott Neutrophils/100 WBC (Bld) 78.3 % Critically high 43.0-75.0 [facility] Comment on above: Performed By: #### A ST, LIPID, ALT, BMP #### [facility] [address] [place] [address] Dr. Alma Prescott Platelet mean volume (Bld) [Entitic vol] 10.2 fL Normal 9.5-13.5 [facility] Comment on above: Performed By: #### A ST, LIPID, ALT, BMP #### [facility] [address] [place] [address] Dr. Alma Prescott PLT 202 103/ul Normal 150-450 [facility] Comment on above: Performed By: #### A ST, LIPID, ALT, BMP #### [facility] [address] [place] [address] Dr. Alma Prescott RBC 4.24 106/ul Critically low 4.70-6.10 [facility] Comment on above: Performed By: #### A ST, LIPID, ALT, BMP #### [facility] [address] [place] [address] Dr. Alma Prescott WBC 5.1 103/ul Normal 4.0-11.0 [facility] Comment on above: Performed By: #### A ST, LIPID, ALT, BMP #### [facility] [address] [place] [address] Dr. Alma Prescott IRON AND TIBCon 05-06-2022 % SATURATION 14.0 % Normal [facility] Comment on above: Performed By: #### A ST, LIPID, ALT, BMP #### [facility] [address] [address] [address] Alma Prescott Iron [Mass/Vol] 34.0 ug/dL Critically low 65.0-175.0 [facility] Comment on above: Performed By: #### A ST, LIPID, ALT, BMP #### [facility] [address] [place] [address] Dr. Alma Prescott TIBC DIRECT 243.0 ug/dL Critically low 250.0-450. 0 [facility] Comment on above: Performed By: #### A ST, LIPID, ALT, BMP #### [facility] [address] [place] [address] Dr. Alma Prescott POINT OF CARE GLUCOSEon 04-25 Glucose [Mass/Vol] 381 mg/dL Critically high [address] [place] [address] Comment on above: Performed By: #### C MP, BNP, CRP #### [facility] [address] [place] [address] Dr. Alma Prescott Glucose [Mass/Vol] 384 mg/dL Critically high -106 [facility] Comment on above: Performed By: #### A ST, LIPID, ALT, BMP #### [facility] [address] [place] [address] Dr. Alma Prescott Glucose [Mass/Vol] 595 mg/dL Critically high [facility]106 [facility] Comment on above: Result Comment: Resu lt Not Confirmed Performed By: #### A ST, LIPID, ALT, BMP #### [facility] [address] [place] [address] Dr. Alma Prescott Glucose [Mass/Vol] 559 mg/dL Critically high [facility]106 [facility] Comment on above: Result Comment: Prev iously Confirmed Performed By: #### C MP, BNP, CRP #### [facility] [address] [place] [address] Dr. Alma Prescott PROF 14(COMP METB)on 022 Albumin [Mass/Vol] 2.3 g/dL Critically low 3.4-5.0 [facility] Comment on above: Performed By: #### A ST, LIPID, ALT, BMP #### [facility] [address] [place] [address] Dr. Alma Prescott Albumin/Globulin [Mass ratio] 0.5 {ratio} Normal [facility] Comment on above: Performed By: #### A ST, LIPID, ALT, BMP #### [facility] [address] [place] [address] Dr. Alma Prescott ALP [Catalytic activity/Vol] 70 U/L Normal 46-116 [facility] Comment on above: Performed By: #### A ST, LIPID, ALT, BMP #### [facility] [address] [place] [address] Dr. Alma Prescott ALT [Catalytic activity/Vol] 25 U/L Normal 16-63 [facility] Comment on above: Performed By: #### A ST, LIPID, ALT, BMP #### [facility] [address] [place] [address] Dr. Alma Prescott Anion gap [Moles/Vol] 14.8 mmol/L Normal [facility] Comment on above: Performed By: #### A ST, LIPID, ALT, BMP #### [facility] [address] [place] [address] Dr. Alma Prescott AST [Catalytic activity/Vol] 43 U/L Critically high 15-37 [facility] Comment on above: Performed By: #### A ST, LIPID, ALT, BMP #### [facility] [address] [place] [address] Dr. Alma Prescott Bilirubin [Mass/Vol] 0.2 mg/dL Normal 0.2-1.0 [facility] Comment on above: Performed By: #### A ST, LIPID, ALT, BMP #### [facility] [address] [address] [address] Alma Prescott Calcium [Mass/Vol] 8.8 mg/dL Normal 8.5-10.1 [facility] Comment on above: Performed By: #### A ST, LIPID, ALT, BMP #### [facility] [address] [place] [address] Dr. Alma Prescott Chloride [Moles/Vol] 98 mmol/L Normal 98-107 [facility] Comment on above: Performed By: #### A ST, LIPID, ALT, BMP #### [facility] [address] [place] [address] Dr. Alma Prescott CO2 [Moles/Vol] 22.5 mmol/L Normal 21.0-32.0 [facility] Comment on above: Performed By: #### A ST, LIPID, ALT, BMP #### [facility] [address] [place] [address] Dr. Alma Prescott Creatinine [Mass/Vol] 1.96 mg/dL Critically high 0.70-1.30 [facility] Comment on above: Performed By: #### A ST, LIPID, ALT, BMP #### [facility] [address] [place] [address] Dr. Alma Prescott EGFR-AF QATARI 40 mL/min/1.73m2 Critically low >=60 [facility] Comment on above: Performed By: #### A ST, LIPID, ALT, BMP #### [facility] [address] [place] [address] Dr. Alma Prescott EGFR-NON AF QATARI 33 mL/min/1.73m2 Critically low >=60 [facility] Comment on above: Performed By: #### A ST, LIPID, ALT, BMP #### [facility] [address] [place] [address] Dr. Alma Prescott Globulin (S) [Mass/Vol] 4.2 g/dL Normal T [facility] Comment on above: Performed By: #### A ST, LIPID, ALT, BMP #### [facility] [address] [place] [address] Dr. Alma Prescott Glucose [Mass/Vol] 474 mg/dL Critically high 74-106 T [facility] Comment on above: Performed By: #### A ST, LIPID, ALT, BMP #### [facility] [address] [address] [address] Alma Prescott Potassium [Moles/Vol] 4.3 mmol/L Normal 3.5-5.1 [facility] Comment on above: Performed By: #### A ST, LIPID, ALT, BMP #### [facility] [address] [place] [address] Dr. Alma Prescott Protein [Mass/Vol] 6.5 g/dL Normal 6.4-8.2 [facility] Comment on above: Performed By: #### A ST, LIPID, ALT, BMP #### [facility] [address] [place] [address] Dr. Alma Prescott Sodium [Moles/Vol] 131 mmol/L Critically low 136-145 Th [facility] Comment on above: Performed By: #### A ST, LIPID, ALT, BMP #### [facility] [address] [place] [address] Dr. Alma Prescott Urea nitrogen [Mass/Vol] 29.0 mg/dL Critically high 7.0-18.0 [facility] Comment on above: Performed By: #### A ST, LIPID, ALT, BMP #### [facility] [address] [place] [address] Dr. Alma Prescott Urea nitrogen/Creatinine [Mass ratio] 14.8 mg/mg Normal [facility] Comment on above: Performed By: #### A ST, LIPID, ALT, BMP #### [facility] [address] [place] [address] Dr. Alma Prescott VIT B12 AND FOLATEon 022 Cobalamin (Vitamin B12) [Mass/Vol] 663.0 pg/mL Normal 193.0-986. 0 [facility] Comment on above: Performed By: #### A ST, LIPID, ALT, BMP #### [facility] [address] [place] [address] Dr. Alma Prescott FOLATE 17.20 ng/mL Normal 8.60-58.90 [facility] Comment on above: Performed By: #### A ST, LIPID, ALT, BMP #### [facility] [address] [place] [address] Dr. Alma Prescott CBC AUTO DIFFon 05-05-2022 BASO # 0.1 103/ul Normal 0.0-0.1 [facility] Comment on above: Performed By: #### C BC #### [facility] [address] [place] [address] Dr. Alma Prescott Basophils/100 WBC (Bld) 1.1 % Normal 0.2-2.0 [facility] Comment on above: Performed By: #### C BC #### [facility] [address] [place] [address] Dr. Alma Prescott EO # 0.0 103/ul Normal 0.0-0.7 [facility] Comment on above: Performed By: #### C BC #### [facility] [address] [place] [address] Dr. Alma Prescott Eosinophils/100 WBC (Bld) 0.4 % Critically low 0.9-7.0 [facility] Comment on above: Performed By: #### C BC #### [facility] [address] [place] [address] Dr. Alma Prescott Erythrocyte distribution width (RBC) [Ratio] 13.6 % Normal 11.0-15.0 [facility] Comment on above: Performed By: #### C BC #### [facility] [address] [place] [address] Dr. Alma Prescott Hematocrit (Bld) [Volume fraction] 38.8 % Critically low 42.0-54.0 [facility] Comment on above: Performed By: #### C BC #### [facility] [address] [place] [address] Dr. Alma Prescott Hemoglobin (Bld) [Mass/Vol] 13.2 g/dL Critically low 14.0-18.0 [facility] Comment on above: Performed By: #### C BC #### [facility] [address] [place] [address] Dr. Alma Prescott IG # 0.01 10e3/ul Normal 0.00-0.03 [facility] Comment on above: Performed By: #### C BC #### [facility] [address] [place] [address] Dr. Alma Prescott IG % 0.2 % Normal 0.0-0.5 [facility] Comment on above: Performed By: #### C BC #### [facility] [address] [place] [address] Dr. Alma Prescott LYMPH # 0.9 103/ul Critically low 1.2-3.8 [facility] Comment on above: Performed By: #### C BC #### [facility] [address] [place] [address] Dr. Alma Prescott Lymphocytes/100 WBC (Bld) 16.6 % Critically low 20.5-60.0 [facility] Comment on above: Performed By: #### C BC #### [facility] [address] [place] [address] Dr. Alma Prescott MANUAL DIFF REQ NO Normal [facility] Comment on above: Performed By: #### C BC #### [facility] [address] [place] [address] Dr. Alma Prescott MCH (RBC) [Entitic mass] 30.2 pg Normal 25.9-34.0 [facility] Comment on above: Performed By: #### C BC #### [facility] [address] [place] [address] Dr. Alma Prescott MCHC (RBC) [Mass/Vol] 34.0 g/dL Normal 29.9-35.2 [facility] Comment on above: Performed By: #### C BC #### [facility] [address] [place] [address] Dr. Alma Prescott MCV (RBC) [Entitic vol] 88.8 fL Normal 80.0-94.0 [facility] Comment on above: Performed By: #### C BC #### [facility] [address] [place] [address] Dr. Alma Prescott MONO # 0.8 103/ul Normal 0.3-0.8 [facility] Comment on above: Performed By: #### C BC #### [facility] [address] [place] [address] Dr. Alma Prescott Monocytes/100 WBC (Bld) 14.3 % Critically high 1.7-12. 0 [facility] Comment on above: Performed By: #### C BC #### [facility] [address] [place] [address] Dr. Alma Prescott NEUT # 3.8 103/ul Normal 1.4-6.5 [facility] Comment on above: Performed By: #### C BC #### [facility] [address] [place] [address] Dr. Alma Prescott Neutrophils/100 WBC (Bld) 67.4 % Normal 43.0-75.0 [facility] Comment on above: Performed By: #### C BC #### [facility] [address] [place] [address] Dr. Alma Prescott Platelet mean volume (Bld) [Entitic vol] 10.5 fL Normal 9.5-13.5 [facility] Comment on above: Performed By: #### C BC #### [facility] [address] [place] [address] Dr. Alma Prescott PLT 216 103/ul Normal 150-450 [facility] Comment on above: Performed By: #### C BC #### [facility] [address] [place] [address] Dr. Alma Prescott RBC 4.37 106/ul Critically low 4.70-6.10 [facility] Comment on above: Performed By: #### C BC #### [facility] [address] [place] [address] Dr. Alma Prescott WBC 5.7 103/ul Normal 4.0-11.0 [facility] Comment on above: Performed By: #### C BC #### [facility] [address] [place] [address] CSPINE WO CONon 2 CT CSPINE WO CON EXAMINATION: CT CSPI NE WO CON HISTORY: WEAKNESS COMPARISON: CT neck [...] by: CARLTON CARPENTER Date: 2022-05-05 16:29 Normal [facility] CT HEAD WO CONon [...] by: PAT REYNOSO Date: 2022-05-05 15:58 Normal [facility] CTA CHEST WO W CONon 022 CTA CHEST WO W CON EXAMINATION: CTA KAPIL ST WO W CON HISTORY: WEAKNESS headache, generalized [...] by: RICHARD TO Date: 2022-05-05 18:39 Normal [facility] CULTURE BLOODon 05-05-2022 Microscopic examination of blood, culture Culture Observations: NO GROWTH AT 5 DAYS. Normal [facility] Comment on above: Performed By: #### C MP, BNP #### [facility] [address] [place] [address] Dr. Alma Prescott Covid-19 PCR ([facility])on 04-25 SARS-CoV-2 (COVID-19) RNA ANGELLA+probe Ql (Unsp spec) Detected Critically abnormal NOT DETECTED [facility] Comment on above: Result Comment: This test is not yet approved or cleared by the [place] FDA. When there are no FDA-approved or cleared tests available, and other criteria are met, FDA can make tests available under an emergency access mechanism called an Emergency Use Authorization (EUA). The EUA for this test is supported by the [place] of Health and Human Service's declaration that [...] Performed By: #### C MP, BNP #### [facility] [address] [place] [address] [id number] [address] Alma Prescott D-DIMERon 05-05-2022 D-DIMER 2.80 mg/L FEU Critically high <=0.59 [facility] Comment on above: Performed By: #### C MP, BNP #### [facility] [address] [place], [place] [address] Dr. Alma Prescott D-DIMER COMMENTS SEE BELOW Normal [facility] Comment on above: Result Comment: Incr [...] Performed By: #### C MP, BNP #### [facility] [address] [place] [address] Dr. Alma Prescott INFLUENZA A AND B [facility] 05-05 [facility] SEE BELOW Normal [facility] Comment on above: Result Comment: Nega tive for Flu A protein angiten. Infection due to Flu A cannot be ruled out. Flu A angiten in the sample may be below the detection limit of the test. Performed By: #### C MP, BNP, CRP #### [facility] [address] [place] [address] Dr. Alma Prescott INFLUBNEG SEE BELOW Normal [facility] Comment on above: Result Comment: Nega tive for Flu B protein antigen. Infection due to Flu B cannot be ruled out. Flu B antigen in the sample may be below the detection limit of the test. Performed By: #### C MP, BNP, CRP #### [facility] [address] [place] [address] Dr. Alma Prescott INFLUENZA A AG Negative Normal NEGATIVE SEE COMMENT [facility] Comment on above: Performed By: #### C MP, BNP, CRP #### [facility] [address] [place] [address] Dr. Alma Prescott INFLUENZA B AG Negative Normal NEGATIVE SEE COMMENT [facility] Comment on above: Performed By: #### C MP, BNP, CRP #### [facility] [address] [place] [address] Dr. Alma Prescott INTERNAL CONTROLS Within Normal Limits Normal Wi thin Normal Limits [facility] Comment on above: Performed By: #### C MP, BNP, CRP #### [facility] [address] [place] [address] [address] Alma Prescott LACTATE/LACTIC ACIDon 2021 Lactate [Moles/Vol] 0.5 mmol/L Normal 0.4-1.9 [facility] Comment on above: Performed By: #### A ST, LIPID, ALT, BMP #### [facility] [address] [place] [address] [address] Alma Prescott POINT OF CARE GLUCOSEon 04-25 Glucose [Mass/Vol] 307 mg/dL Critically high 74-106 [facility] Comment on above: Performed By: #### A ST, LIPID, ALT, BMP #### [facility] [address] [address] [address] Alma Prescott PROF 14(COMP METB)on 022 Albumin [Mass/Vol] 2.9 g/dL Critically low 3.4-5.0 [facility] Comment on above: Performed By: #### A ST, LIPID, ALT, BMP #### [facility] [address] [place] [address] Dr. Alma Prescott Albumin/Globulin [Mass ratio] 0.6 {ratio} Normal [facility] Comment on above: Performed By: #### A ST, LIPID, ALT, BMP #### [facility] [address] [place] [address] Dr. Alma Prescott ALP [Catalytic activity/Vol] 76 U/L Normal 46-116 [facility] Comment on above: Performed By: #### A ST, LIPID, ALT, BMP #### [facility] [address] [place] [address] Dr. Alma Prescott ALT [Catalytic activity/Vol] 31 U/L Normal 16-63 [facility] Comment on above: Performed By: #### A ST, LIPID, ALT, BMP #### [facility] [address] [place] [address] Dr. Alma Prescott Anion gap [Moles/Vol] 12.7 mmol/L Normal [facility] Comment on above: Performed By: #### A ST, LIPID, ALT, BMP #### [facility] [address] [place] [address] [address] Alma Prescott AST [Catalytic activity/Vol] 49 U/L Critically high 15-37 [facility] Comment on above: Performed By: #### A ST, LIPID, ALT, BMP #### [facility] [address] [place] [address] [address] Alma Prescott Bilirubin [Mass/Vol] 0.2 mg/dL Normal 0.2-1.0 [facility] Comment on above: Performed By: #### A ST, LIPID, ALT, BMP #### [facility] [address] [address] [address] Alma Prescott Calcium [Mass/Vol] 9.3 mg/dL Normal 8.5-10.1 [facility] Comment on above: Performed By: #### A ST, LIPID, ALT, BMP #### [facility] [address] [place] [address] Dr. Alma Prescott Chloride [Moles/Vol] 97 mmol/L Critically low 98-107 [facility] Comment on above: Performed By: #### A ST, LIPID, ALT, BMP #### [facility] [address] [address] [address] Alma Prescott CO2 [Moles/Vol] 26.4 mmol/L Normal 21.0-32.0 [facility] Comment on above: Performed By: #### A ST, LIPID, ALT, BMP #### [facility] [address] [place] [address] [address] Alma Prescott Creatinine [Mass/Vol] 2.06 mg/dL Critically high 0.70-1.30 [facility] Comment on above: Performed By: #### A ST, LIPID, ALT, BMP #### [facility] [address] [address] [address] Alma Prescott EGFR-AF QATARI 37 mL/min/1.73m2 Critically low >=60 [facility] Comment on above: Performed By: #### A ST, LIPID, ALT, BMP #### [facility] [address] [place] [address] [address] Alma Prescott EGFR-NON AF QATARI 31 mL/min/1.73m2 Critically low >=60 [facility] Comment on above: Performed By: #### A ST, LIPID, ALT, BMP #### [facility] [address] [place] [address] Dr. Alma Prescott Globulin (S) [Mass/Vol] 4.5 g/dL Normal [facility] Comment on above: Performed By: #### A ST, LIPID, ALT, BMP #### [facility] [address] [place] [address] Dr. Alma Prescott Glucose [Mass/Vol] 367 mg/dL Critically high 74-106 [facility] Comment on above: Performed By: #### A ST, LIPID, ALT, BMP #### [facility] [address] [place] [address] Dr. Alma Prescott Potassium [Moles/Vol] 4.1 mmol/L Normal 3.5-5.1 [facility] Comment on above: Performed By: #### A ST, LIPID, ALT, BMP #### [facility] [address] [place] [address] Dr. Alma Prescott Protein [Mass/Vol] 7.4 g/dL Normal 6.4-8.2 [facility] Comment on above: Performed By: #### A ST, LIPID, ALT, BMP #### [facility] [address] [place] [address] Dr. Alma Prescott Sodium [Moles/Vol] 132 mmol/L Critically low 136-145 [facility] Comment on above: Performed By: #### A ST, LIPID, ALT, BMP #### [facility] [address] [place] [address] Dr. Alma Prescott Urea nitrogen [Mass/Vol] 23.0 mg/dL Critically high 7.0-18.0 [facility] Comment on above: Performed By: #### A ST, LIPID, ALT, BMP #### [facility] [address] [place] [address] Dr. Alma Prescott Urea nitrogen/Creatinine [Mass ratio] 11.2 mg/mg Normal [facility] Comment on above: Performed By: #### A ST, LIPID, ALT, BMP #### [facility] [address] [place] [address] [address] Alma Prescott PROTIMEon 05-05-2022 INR Coag (PPP) [Relative time] 1.00 {INR} Normal [facility] Comment on above: Performed By: #### A ST, LIPID, ALT, BMP #### [facility] [address] [place] [address] [address] Alma Prescott INR GUIDELINES SEE BELOW Normal [facility] Comment on above: Result Comment: IVAN RED INR: 2.0 - 3.0 CONDITIONS NOT LISTED BELOW 2.5 - 3.5 FOR PROSTHETIC HEART VALVE REPLACEMENT 2.5 - 3.5 RECURRENT THROMBOSIS Performed By: #### A ST, LIPID, ALT, BMP #### [facility] [address] [place] [address] Dr. Alma Prescott PT Coag (PPP) [Time] 10.8 s Normal 9.0-11.6 [facility] Comment on above: Performed By: #### A ST, LIPID, ALT, BMP #### [facility] [address] [place] [address] Dr. Alma Prescott PTTon 05-05-2022 aPTT Coag (Bld) [Time] 29.0 s Normal 22.3-36.2 [facility] Comment on above: Performed By: #### A ST, LIPID, ALT, BMP #### [facility] [address] [place] [address] Dr. Alma Prescott TROPONIN, HIGH SENSITIVITYon 05-05-2022 HSTROP 75.3 pg/mL Normal 4.0-76.1 [facility] Comment on above: Result Comment: CUT- OFF POINTS HAVE BEEN ESTABLISHED BASED ON THE FOURTH UNIVERSAL DEFINITIONS OF MYOCARDIAL INFARCTION. THE UPPER REFERENCE LIMIT (URL) OF TROPONIN, DEFINED THE 99TH PERCENTILE OF cTnI DISTRIBUTION IN A REFERENCE POPULATION, HAS BEEN CONFIRMED THE DECISION THRESHOLD FOR PR DIAGNOSIS. Performed By: #### A ST, LIPID, ALT, BMP #### [facility] [address] [place] [address] Dr. Alma Prescott XR CHEST 1 Von 12-11-2022 XR CHEST 1 V EXAM: XR CHEST [...] are also again identified. Electronically authenticated by: [employer] Date: 2022-05-05 16:19 Normal [facility] BNPon 11-27-2021 Natriuretic peptide B (Bld) [Mass/Vol] 461.0 pg/mL Normal <=1,800.0 [facility] Comment on above: Performed By: #### A ST, LIPID, ALT, BMP #### [facility] [address] [place] [address] Dr. Alma Prescott CBC AUTO DIFFon 11-27-2021 BASO # 0.1 103/ul Normal 0.0-0.1 [facility] Comment on above: Performed By: #### C MP, BNP, CRP #### [facility] [address] [place] [address] Dr. Alma Prescott Basophils/100 WBC (Bld) 0.8 % Normal 0.2-2.0 [facility] Comment on above: Performed By: #### C MP, BNP, CRP #### [facility] [address] [place] [address] Dr. Alma Prescott EO # 0.4 103/ul Normal 0.0-0.7 [facility] Comment on above: Performed By: #### C MP, BNP, CRP #### [facility] [address] [place] [address] Dr. Alma Prescott Eosinophils/100 WBC (Bld) 6.2 % Normal 0.9-7.0 [facility] Comment on above: Performed By: #### C MP, BNP, CRP #### [facility] [address] [place] [address] Dr. Alma Prescott Erythrocyte distribution width (RBC) [Ratio] 14.0 % Normal 11.0-15.0 [facility] Comment on above: Performed By: #### C MP, BNP, CRP #### [facility] [address] [place] [address] Dr. Alma Prescott Hematocrit (Bld) [Volume fraction] 33.0 % Critically low 42.0-54.0 [facility] Comment on above: Performed By: #### C MP, BNP, CRP #### [facility] [address] [place] [address] Dr. Alma Prescott Hemoglobin (Bld) [Mass/Vol] 10.7 g/dL Critically low 14.0-18.0 [facility] Comment on above: Performed By: #### C MP, BNP, CRP #### [facility] [address] [place] [address] Dr. Alma Prescott IG # 0.02 10e3/ul Normal 0.00-0.03 [facility] Comment on above: Performed By: #### C MP, BNP, CRP #### [facility] [address] [place] [address] Dr. Alma Prescott IG % 0.3 % Normal 0.0-0.5 [facility] Comment on above: Performed By: #### C MP, BNP, CRP #### [facility] [address] [place] [address] Dr. Alma Prescott LYMPH # 1.6 103/ul Normal 1.2-3.8 [facility] Comment on above: Performed By: #### C MP, BNP, CRP #### [facility] [address] [place] [address] Dr. Alma Prescott Lymphocytes/100 WBC (Bld) 25.5 % Normal 20.5-60.0 [facility] Comment on above: Performed By: #### C MP, BNP, CRP #### [facility] [address] [place] [address] Dr. Alma Prescott MANUAL DIFF REQ NO Normal [facility] Comment on above: Performed By: #### C MP, BNP, CRP #### [facility] [address] [place] [address] Dr. Alma Prescott MCH (RBC) [Entitic mass] 29.5 pg Normal 25.9-34.0 [facility] Comment on above: Performed By: #### C MP, BNP, CRP #### [facility] [address] [place] [address] Dr. Alma Prescott MCHC (RBC) [Mass/Vol] 32.4 g/dL Normal 29.9-35.2 [facility] Comment on above: Performed By: #### C MP, BNP, CRP #### [facility] [address] [place] [address] Dr. Alma Prescott MCV (RBC) [Entitic vol] 90.9 fL Normal 80.0-94.0 [facility] Comment on above: Performed By: #### C MP, BNP, CRP #### [facility] [address] [place] [address] Dr. Alma Prescott MONO # 0.4 103/ul Normal 0.3-0.8 [facility] Comment on above: Performed By: #### C MP, BNP, CRP #### [facility] [address] [place] [address] Dr. Alma Prescott Monocytes/100 WBC (Bld) 6.8 % Normal 1.7-12.0 [facility] Comment on above: Performed By: #### C MP, BNP, CRP #### [facility] [address] [place] [address] Dr. Alma Prescott NEUT # 3.8 103/ul Normal 1.4-6.5 [facility] Comment on above: Performed By: #### C MP, BNP, CRP #### [facility] [address] [place] [address] Dr. Alma Prescott Neutrophils/100 WBC (Bld) 60.4 % Normal 43.0-75.0 [facility] Comment on above: Performed By: #### C MP, BNP, CRP #### [facility] [address] [place] [address] Dr. Alma Prescott Platelet mean volume (Bld) [Entitic vol] 9.5 fL Normal 9.5-13.5 [facility] Comment on above: Performed By: #### C MP, BNP, CRP #### [facility] [address] [place] [address] Dr. Alma Prescott PLT 232 103/ul Normal 150-450 [facility] Comment on above: Performed By: #### C MP, BNP, CRP #### [facility] [address] [place] [address] [address] Alma Prescott RBC 3.63 106/ul Critically low 4.70-6.10 [facility] Comment on above: Performed By: #### C MP, BNP, CRP #### [facility] [address] [place] [address] Dr. Alma Prescott WBC 6.3 103/ul Normal 4.0-11.0 [facility] Comment on above: Performed By: #### C MP, BNP, CRP #### [facility] [address] [place] [address] Dr. Amla Prescott PROF 14(COMP METB)on 022 Albumin [Mass/Vol] 3.3 g/dL Critically low 3.4-5.0 [facility] Comment on above: Performed By: #### A ST, LIPID, ALT, BMP #### [facility] [address] [place] [address] Dr. Alma Prescott Albumin/Globulin [Mass ratio] 0.8 {ratio} Normal [facility] Comment on above: Performed By: #### A ST, LIPID, ALT, BMP #### [facility] [address] [place] [address] Dr. Alma Prescott ALP [Catalytic activity/Vol] 71 U/L Normal 46-116 [facility] Comment on above: Performed By: #### A ST, LIPID, ALT, BMP #### [facility] [address] [place] [address] Dr. Alma Prescott ALT [Catalytic activity/Vol] 39 U/L Normal 16-63 [facility] Comment on above: Performed By: #### A ST, LIPID, ALT, BMP #### [facility] [address] [place] [address] [address] Alma Prescott Anion gap [Moles/Vol] 11.9 mmol/L Normal Th [facility] Comment on above: Performed By: #### A ST, LIPID, ALT, BMP #### [facility] [address] [place] [address] [address] Alam Prescott AST [Catalytic activity/Vol] 32 U/L Normal 15-37 [facility] Comment on above: Performed By: #### A ST, LIPID, ALT, BMP #### [facility] [address] [place] [address] [address] Alma Prescott Bilirubin [Mass/Vol] 0.3 mg/dL Normal 0.2-1.0 [facility] Comment on above: Performed By: #### A ST, LIPID, ALT, BMP #### [facility] [address] [place] [address] Dr. Alma Prescott Calcium [Mass/Vol] 9.3 mg/dL Normal 8.5-10.1 [facility] Comment on above: Performed By: #### A ST, LIPID, ALT, BMP #### [facility] [address] [place] [address] [address] Alma Prescott Chloride [Moles/Vol] 103 mmol/L Normal 98-107 [facility] Comment on above: Performed By: #### A ST, LIPID, ALT, BMP #### [facility] [address] [address] [address] Alma Prescott CO2 [Moles/Vol] 24.3 mmol/L Normal 21.0-32.0 [facility] Comment on above: Performed By: #### A ST, LIPID, ALT, BMP #### [facility] [address] [address] [address] Alma Prescott Creatinine [Mass/Vol] 1.63 mg/dL Critically high 0.70-1.30 [facility] Comment on above: Performed By: #### A ST, LIPID, ALT, BMP #### [facility] [address] [address] [address] Alma Prescott EGFR-AF QATARI 49 mL/min/1.73m2 Critically low >=60 [facility] Comment on above: Performed By: #### A ST, LIPID, ALT, BMP #### [facility] [address] [place] [address] Dr. Alma Prescott EGFR-NON AF QATARI 41 mL/min/1.73m2 Critically low >=60 [facility] Comment on above: Performed By: #### A ST, LIPID, ALT, BMP #### [facility] [address] [place] [address] Dr. Alma Prescott Globulin (S) [Mass/Vol] 3.9 g/dL Normal [facility] Comment on above: Performed By: #### A ST, LIPID, ALT, BMP #### [facility] [address] [place] [address] Dr. Alma Prescott Glucose [Mass/Vol] 116 mg/dL Critically high 74-106 [facility] Comment on above: Performed By: #### A ST, LIPID, ALT, BMP #### [facility] [address] [place] [address] Dr. Alma Prescott Potassium [Moles/Vol] 5.2 mmol/L Critically high 3.5-5.1 [facility] Comment on above: Performed By: #### A ST, LIPID, ALT, BMP #### [facility] [address] [place] [address] Dr. Alma Prescott Protein [Mass/Vol] 7.2 g/dL Normal 6.4-8.2 [facility] Comment on above: Performed By: #### A ST, LIPID, ALT, BMP #### [facility] [address] [place] [address] Dr. Alma Prescott Sodium [Moles/Vol] 134 mmol/L Critically low 136-145 [facility] Comment on above: Performed By: #### A ST, LIPID, ALT, BMP #### [facility] [address] [place] [address] Dr. Alma Prescott Urea nitrogen [Mass/Vol] 27.0 mg/dL Critically high 7.0-18.0 [facility] Comment on above: Performed By: #### A ST, LIPID, ALT, BMP #### [facility] [address] [address] [address] Alma Prescott Urea nitrogen/Creatinine [Mass ratio] 16.6 mg/mg Normal [facility] Comment on above: Performed By: #### A ST, LIPID, ALT, BMP #### [facility] [address] [address] [address] Alma Prescott PROTIMEon 11-27-2021 INR Coag (PPP) [Relative time] 1.05 {INR} Normal [facility] Comment on above: Performed By: #### A ST, LIPID, ALT, BMP #### [facility] [address] [address] [address] Alma Prescott INR GUIDELINES SEE BELOW Normal [facility] Comment on above: Result Comment: IVAN RED INR: 2.0 - 3.0 CONDITIONS NOT LISTED BELOW 2.5 - 3.5 FOR PROSTHETIC HEART VALVE REPLACEMENT 2.5 - 3.5 RECURRENT THROMBOSIS Performed By: #### A ST, LIPID, ALT, BMP #### [facility] [address] [address] [address] Alma Prescott PT Coag (PPP) [Time] 11.3 s Normal 9.0-11.6 [facility] Comment on above: Performed By: #### A ST, LIPID, ALT, BMP #### [facility] [address] [place] [address] Dr. Alma Prescott PTTon 11-27-2021 aPTT Coag (Bld) [Time] 30.3 s Normal 22.3-36.2 [facility] Comment on above: Performed By: #### A ST, LIPID, ALT, BMP #### [facility] [address] [place] [address] Dr. Alma Prescott TROPONIN, HIGH SENSITIVITYon 11-27-2021 HSTROP 18.3 pg/mL Normal 4.0-76.1 [facility] Comment on above: Result Comment: CUT- OFF POINTS HAVE BEEN ESTABLISHED BASED ON THE FOURTH UNIVERSAL DEFINITIONS OF MYOCARDIAL INFARCTION. THE UPPER REFERENCE LIMIT (URL) OF TROPONIN, DEFINED THE 99TH PERCENTILE OF cTnI DISTRIBUTION IN A REFERENCE POPULATION, HAS BEEN CONFIRMED THE DECISION THRESHOLD FOR PR DIAGNOSIS. Performed By: #### A ST, LIPID, ALT, BMP #### [facility] [address] [address] [address] Alma Prescott XR CHEST 1 Von [...] STEVO DAVID Date: 2021-11-27 16:06 Normal [facility] CBC AUTO DIFFon 11-19-2021 BASO # 0.1 103/ul Normal 0.0-0.1 [facility] Comment on above: Performed By: #### A ST, LIPID, ALT, BMP #### [facility] [address] [address] [address] Alma Prescott Basophils/100 WBC (Bld) 0.6 % Normal 0.2-2.0 [facility] Comment on above: Performed By: #### A ST, LIPID, ALT, BMP #### [facility] [address] [address] [address] Alma Prescott EO # 0.4 103/ul Normal 0.0-0.7 [facility] Comment on above: Performed By: #### A ST, LIPID, ALT, BMP #### [facility] [address] [address] [address] Alma Prescott Eosinophils/100 WBC (Bld) 4.8 % Normal 0.9-7.0 [facility] Comment on above: Performed By: #### A ST, LIPID, ALT, BMP #### [facility] [address] [address] [address] Alma Prescott Erythrocyte distribution width (RBC) [Ratio] 14.6 % Normal 11.0-15.0 [facility] Comment on above: Performed By: #### A ST, LIPID, ALT, BMP #### [facility] [address] [place] [address] Dr. Alma Prescott Hematocrit (Bld) [Volume fraction] 34.3 % Critically low 42.0-54.0 [facility] Comment on above: Performed By: #### A ST, LIPID, ALT, BMP #### [facility] [address] [place] [address] Dr. Alma Prescott Hemoglobin (Bld) [Mass/Vol] 11.1 g/dL Critically low 14.0-18.0 [facility] Comment on above: Performed By: #### A ST, LIPID, ALT, BMP #### [facility] [address] [place] [address] Dr. Alma Prescott IG # 0.02 10e3/ul Normal 0.00-0.03 [facility] Comment on above: Performed By: #### A ST, LIPID, ALT, BMP #### [facility] [address] [place] [address] Dr. Alma Prescott IG % 0.2 % Normal 0.0-0.5 [facility] Comment on above: Performed By: #### A ST, LIPID, ALT, BMP #### [facility] [address] [place] [address] Dr. Alma Prescott LYMPH # 1.5 103/ul Normal 1.2-3.8 [facility] Comment on above: Performed By: #### A ST, LIPID, ALT, BMP #### [facility] [address] [place] [address] Dr. Alma Prescott Lymphocytes/100 WBC (Bld) 19.0 % Critically low 20.5-60.0 [facility] Comment on above: Performed By: #### A ST, LIPID, ALT, BMP #### [facility] [address] [place] [address] Dr. Alma Prescott MANUAL DIFF REQ NO Normal [facility] Comment on above: Performed By: #### A ST, LIPID, ALT, BMP #### [facility] [address] [place] [address] Dr. Alma Prescott MCH (RBC) [Entitic mass] 29.8 pg Normal 25.9-34.0 [facility] Comment on above: Performed By: #### A ST, LIPID, ALT, BMP #### [facility] [address] [place] [address] Dr. Alma Prescott MCHC (RBC) [Mass/Vol] 32.4 g/dL Normal 29.9-35.2 [facility] Comment on above: Performed By: #### A ST, LIPID, ALT, BMP #### [facility] [address] [place] [address] Dr. Alma Prescott MCV (RBC) [Entitic vol] 92.0 fL Normal 80.0-94.0 [facility] Comment on above: Performed By: #### A ST, LIPID, ALT, BMP #### [facility] [address] [place] [address] Dr. Alma Prescott MONO # 0.8 103/ul Normal 0.3-0.8 [facility] Comment on above: Performed By: #### A ST, LIPID, ALT, BMP #### [facility] [address] [place] [address] Dr. Alma Prescott Monocytes/100 WBC (Bld) 10.2 % Normal 1.7-12.0 [facility] Comment on above: Performed By: #### A ST, LIPID, ALT, BMP #### [facility] [address] [place] [address] Dr. Alma Prescott NEUT # 5.2 103/ul Normal 1.4-6.5 [facility] Comment on above: Performed By: #### A ST, LIPID, ALT, BMP #### [facility] [address] [place] [address] Dr. Alma Prescott Neutrophils/100 WBC (Bld) 65.2 % Normal 43.0-75.0 [facility] Comment on above: Performed By: #### A ST, LIPID, ALT, BMP #### [facility] [address] [place] [address] Dr. Alma Prescott Platelet mean volume (Bld) [Entitic vol] 9.7 fL Normal 9.5-13.5 [facility] Comment on above: Performed By: #### A ST, LIPID, ALT, BMP #### [facility] [address] [address] [address] Alma Prescott PLT 227 103/ul Normal 150-450 [facility] Comment on above: Performed By: #### A ST, LIPID, ALT, BMP #### [facility] [address] [address] [address] Alma Prescott RBC 3.73 106/ul Critically low 4.70-6.10 [facility] Comment on above: Performed By: #### A ST, LIPID, ALT, BMP #### [facility] [address] [address] [address] Alma Prescott WBC 8.1 103/ul Normal 4.0-11.0 [facility] Comment on above: Performed By: #### A ST, LIPID, ALT, BMP #### [facility] [address] [address] [address] Alma Prescott ECHO LIMITED STUDYon 022 ECHO LIMITED STUDY Patient: AUNDREA HOLLINGSWORTH Exam Date: 11/19/2021 : 1935 Gender:M Ordering : DR JAIME RUELAS . Admission #: [id number] Family : DR SHOLA LYNN . Order #: [id number] CLICK HERE TO VIEW EXAM ECHOCARDIOGRAM REPORT [...] Area(A4C): 18.70 cm2 Left Atrium Systolic Volume(A2C): 26883 mm3 Left Atrium Systolic Volume(A4C): 83257 mm3 Mitral Valve Right Ventricle RV Internal Diastolic Dimension: 3.80 cm Aorta AO Root Diam: 4.00 cm Aortic Valve Tricuspid Valve Pulmonic Valve Right Atrium Dictated by: Benjamin Taylor M.D. on 11/19/2021 at 18:03 Approved by: Benjamin Taylor M.D. on 11/19/2021 at 18:07 Normal [facility] PROF 14(COMP METB)on 022 Albumin [Mass/Vol] 3.0 g/dL Critically low 3.4-5.0 [facility] Comment on above: Performed By: #### C BC #### [facility] [address] [address] [address] Alma Prescott Albumin/Globulin [Mass ratio] 0.8 {ratio} Normal [facility] Comment on above: Performed By: #### C BC #### [facility] [address] [place], [place] [address] Dr. Alma Prescott ALP [Catalytic activity/Vol] 64 U/L Normal 46-116 [facility] Comment on above: Performed By: #### C BC #### [facility] [address] [address] [address] Alma Prescott ALT [Catalytic activity/Vol] 35 U/L Normal 16-63 [facility] Comment on above: Performed By: #### C BC #### [facility] [address] [address] [address] Alma Prescott Anion gap [Moles/Vol] 13.2 mmol/L Normal Th [facility] Comment on above: Performed By: #### C BC #### [facility] [address] [address] [address] Alma Prescott AST [Catalytic activity/Vol] 31 U/L Normal 15-37 [facility] Comment on above: Performed By: #### C BC #### [facility] [address] [place] [address] Dr. Alma Prescott Bilirubin [Mass/Vol] 0.3 mg/dL Normal 0.2-1.0 [facility] Comment on above: Performed By: #### C BC #### [facility] [address] [place] [address] Dr. Alma Prescott Calcium [Mass/Vol] 8.6 mg/dL Normal 8.5-10.1 [facility] Comment on above: Performed By: #### C BC #### [facility] [address] [place] [address] Dr. Alma Prescott Chloride [Moles/Vol] 100 mmol/L Normal 98-107 [facility] Comment on above: Performed By: #### C BC #### [facility] [address] [place] [address] Dr. Alma Prescott CO2 [Moles/Vol] 26.3 mmol/L Normal 21.0-32.0 [facility] Comment on above: Performed By: #### C BC #### [facility] [address] [place] [address] Dr. Alma Prescott Creatinine [Mass/Vol] 1.91 mg/dL Critically high 0.70-1.30 [facility] Comment on above: Performed By: #### C BC #### [facility] [address] [place], [place] [id number] Dr. Alma Prescott EGFR-AF QATARI 41 mL/min/1.73m2 Critically low >=60 [facility] Comment on above: Performed By: #### C BC #### [facility] [address] [address] [address] Alma Prescott EGFR-NON AF QATARI 34 mL/min/1.73m2 Critically low >=60 [facility] Comment on above: Performed By: #### C BC #### [facility] [address] [address] [address] Alma Prescott Globulin (S) [Mass/Vol] 3.6 g/dL Normal [facility] Comment on above: Performed By: #### C BC #### [facility] [address] [place] [address] Dr. Alma Prescott Glucose [Mass/Vol] 138 mg/dL Critically high 74-106 [facility] Comment on above: Performed By: #### C BC #### [facility] [address] [address] [address] Alma Prescott Potassium [Moles/Vol] 4.5 mmol/L Normal 3.5-5.1 [facility] Comment on above: Performed By: #### C BC #### [facility] [address] [place] [address] Dr. Alma Prescott Protein [Mass/Vol] 6.6 g/dL Normal 6.4-8.2 [facility] Comment on above: Performed By: #### C BC #### [facility] [address] [address] [address] Alma Prescott Sodium [Moles/Vol] 135 mmol/L Critically low 136-145 [facility] Comment on above: Performed By: #### C BC #### [facility] [address] [address] [address] Alma Prescott Urea nitrogen [Mass/Vol] 23.0 mg/dL Critically high 7.0-18.0 [facility] Comment on above: Performed By: #### C BC #### [facility] [address] [address] [address] Alma Prescott Urea nitrogen/Creatinine [Mass ratio] 12.0 mg/mg Normal [facility] Comment on above: Performed By: #### C BC #### [facility] [address] [place] [address] Dr. Alma Prescott CBC AUTO DIFFon 11-18-2021 BASO # 0.1 103/ul Normal 0.0-0.1 [facility] Comment on above: Performed By: #### A ST, LIPID, ALT, BMP #### [facility] [address] [place] [address] Dr. Alma Prescott Basophils/100 WBC (Bld) 1.0 % Normal 0.2-2.0 [facility] Comment on above: Performed By: #### A ST, LIPID, ALT, BMP #### [facility] [address] [place] [address] Dr. Alma Prescott EO # 0.4 103/ul Normal 0.0-0.7 [facility] Comment on above: Performed By: #### A ST, LIPID, ALT, BMP #### [facility] [address] [place] [address] Dr. Alma Prescott Eosinophils/100 WBC (Bld) 5.3 % Normal 0.9-7.0 [facility] Comment on above: Performed By: #### A ST, LIPID, ALT, BMP #### [facility] [address] [place] [address] Dr. Alma Prescott Erythrocyte distribution width (RBC) [Ratio] 14.6 % Normal 11.0-15.0 [facility] Comment on above: Performed By: #### A ST, LIPID, ALT, BMP #### [facility] [address] [place] [address] Dr. Alma Prescott Hematocrit (Bld) [Volume fraction] 33.3 % Critically low 42.0-54.0 [facility] Comment on above: Performed By: #### A ST, LIPID, ALT, BMP #### [facility] [address] [place] [address] Dr. Alma Prescott Hemoglobin (Bld) [Mass/Vol] 10.7 g/dL Critically low 14.0-18.0 [facility] Comment on above: Performed By: #### A ST, LIPID, ALT, BMP #### [facility] [address] [place] [address] Dr. Alma Prescott IG # 0.03 10e3/ul Normal 0.00-0.03 [facility] Comment on above: Performed By: #### A ST, LIPID, ALT, BMP #### [facility] [address] [place] [address] Dr. Alma Prescott IG % 0.4 % Normal 0.0-0.5 [facility] Comment on above: Performed By: #### A ST, LIPID, ALT, BMP #### [facility] [address] [place] [address] Dr. Alma Prescott LYMPH # 1.5 103/ul Normal 1.2-3.8 [facility] Comment on above: Performed By: #### A ST, LIPID, ALT, BMP #### [facility] [address] [place] [address] Dr. Alma Prescott Lymphocytes/100 WBC (Bld) 21.1 % Normal 20.5-60.0 [facility] Comment on above: Performed By: #### A ST, LIPID, ALT, BMP #### [facility] [address] [place] [address] Dr. Alma Prescott MANUAL DIFF REQ NO Normal [facility] Comment on above: Performed By: #### A ST, LIPID, ALT, BMP #### [facility] [address] [place] [address] Dr. Alma Prescott MCH (RBC) [Entitic mass] 29.6 pg Normal 25.9-34.0 [facility] Comment on above: Performed By: #### A ST, LIPID, ALT, BMP #### [facility] [address] [place] [address] Dr. Alma Prescott MCHC (RBC) [Mass/Vol] 32.1 g/dL Normal 29.9-35.2 [facility] Comment on above: Performed By: #### A ST, LIPID, ALT, BMP #### [facility] [address] [place] [address] Dr. Alma Prescott MCV (RBC) [Entitic vol] 92.0 fL Normal 80.0-94.0 [facility] Comment on above: Performed By: #### A ST, LIPID, ALT, BMP #### [facility] [address] [place] [address] Dr. Alma Prescott MONO # 0.8 103/ul Normal 0.3-0.8 [facility] Comment on above: Performed By: #### A ST, LIPID, ALT, BMP #### [facility] [address] [place] [address] Dr. Alma Prescott Monocytes/100 WBC (Bld) 10.8 % Normal 1.7-12.0 [facility] Comment on above: Performed By: #### A ST, LIPID, ALT, BMP #### [facility] [address] [place] [address] Dr. Alma Prescott NEUT # 4.4 103/ul Normal 1.4-6.5 [facility] Comment on above: Performed By: #### A ST, LIPID, ALT, BMP #### [facility] [address] [place] [address] Dr. Alma Prescott Neutrophils/100 WBC (Bld) 61.4 % Normal 43.0-75.0 [facility] Comment on above: Performed By: #### A ST, LIPID, ALT, BMP #### [facility] [address] [place] [address] Dr. Alma Prescott Platelet mean volume (Bld) [Entitic vol] 9.6 fL Normal 9.5-13.5 [facility] Comment on above: Performed By: #### A ST, LIPID, ALT, BMP #### [facility] [address] [place] [address] Dr. Alma Prescott PLT 224 103/ul Normal 150-450 [facility] Comment on above: Performed By: #### A ST, LIPID, ALT, BMP #### [facility] [address] [place] [address] Dr. Alma Prescott RBC 3.62 106/ul Critically low 4.70-6.10 [facility] Comment on above: Performed By: #### A ST, LIPID, ALT, BMP #### [facility] [address] [address] [address] Alma Prescott WBC 7.2 103/ul Normal 4.0-11.0 [facility] Comment on above: Performed By: #### A ST, LIPID, ALT, BMP #### [facility] [address] [place] [address] Dr. Alma Prescott PROF 14(COMP METB)on 022 Albumin [Mass/Vol] 2.8 g/dL Critically low 3.4-5.0 [facility] Comment on above: Performed By: #### C MP, BNP, CRP #### [facility] [address] [place] [address] Dr. Alma Prescott Albumin/Globulin [Mass ratio] 0.8 {ratio} Normal [facility] Comment on above: Performed By: #### C MP, BNP, CRP #### [facility] [address] [place] [address] Dr. Alma Prescott ALP [Catalytic activity/Vol] 61 U/L Normal 46-116 [facility] Comment on above: Performed By: #### C MP, BNP, CRP #### [facility] [address] [place] [address] Dr. Alma Prescott ALT [Catalytic activity/Vol] 29 U/L Normal 16-63 [facility] Comment on above: Performed By: #### C MP, BNP, CRP #### [facility] [address] [place] [address] Dr. Alma Prescott Anion gap [Moles/Vol] 13.9 mmol/L Normal [facility] Comment on above: Performed By: #### C MP, BNP, CRP #### [facility] [address] [place] [address] Dr. Alma Prescott AST [Catalytic activity/Vol] 22 U/L Normal 15-37 [facility] Comment on above: Performed By: #### C MP, BNP, CRP #### [facility] [address] [address] [address] Alma Prescott Bilirubin [Mass/Vol] 0.3 mg/dL Normal 0.2-1.0 [facility] Comment on above: Performed By: #### C MP, BNP, CRP #### [facility] [address] [place] [address] Dr. Alma Prescott Calcium [Mass/Vol] 8.7 mg/dL Normal 8.5-10.1 [facility] Comment on above: Performed By: #### C MP, BNP, CRP #### [facility] [address] [address] [address] Alma Prescott Chloride [Moles/Vol] 102 mmol/L Normal 98-107 [facility] Comment on above: Performed By: #### C MP, BNP, CRP #### [facility] [address] [place] [address] Dr. Alma Prescott CO2 [Moles/Vol] 25.3 mmol/L Normal 21.0-32.0 [facility] Comment on above: Performed By: #### C MP, BNP, CRP #### [facility] [address] [place] [address] Dr. Alma Prescott Creatinine [Mass/Vol] 2.12 mg/dL Critically high 0.70-1.30 [facility] Comment on above: Performed By: #### C MP, BNP, CRP #### [facility] [address] [place] [address] Dr. Alma Prescott EGFR-AF QATARI 36 mL/min/1.73m2 Critically low >=60 [facility] Comment on above: Performed By: #### C MP, BNP, CRP #### [facility] [address] [place] [address] Dr. Alma Prescott EGFR-NON AF QATARI 30 mL/min/1.73m2 Critically low >=60 [facility] Comment on above: Performed By: #### C MP, BNP, CRP #### [facility] [address] [place] [address] Dr. Alma Prescott Globulin (S) [Mass/Vol] 3.5 g/dL Normal T [facility] Comment on above: Performed By: #### C MP, BNP, CRP #### [facility] [address] [address] [address] Alma Prescott Glucose [Mass/Vol] 156 mg/dL Critically high 74-106 [facility] Comment on above: Performed By: #### C MP, BNP, CRP #### [facility] [address] [place] [address] Dr. Alma Prescott Potassium [Moles/Vol] 4.2 mmol/L Normal 3.5-5.1 [facility] Comment on above: Performed By: #### C MP, BNP, CRP #### [facility] [address] [place] [address] Dr. Alma Prescott Protein [Mass/Vol] 6.3 g/dL Critically low 6.4-8.2 [facility] Comment on above: Performed By: #### C MP, BNP, CRP #### [facility] [address] [place] [address] Dr. Alma Prescott Sodium [Moles/Vol] 137 mmol/L Normal 136-145 [facility] Comment on above: Performed By: #### C MP, BNP, CRP #### [facility] [address] [place] [address] Dr. Alma Prescott Urea nitrogen [Mass/Vol] 23.0 mg/dL Critically high 7.0-18.0 [facility] Comment on above: Performed By: #### C MP, BNP, CRP #### [facility] [address] [place] [address] Dr. Alma Prescott Urea nitrogen/Creatinine [Mass ratio] 10.8 mg/mg Normal [facility] Comment on above: Performed By: #### C MP, BNP, CRP #### [facility] [address] [place] [address] Dr. Alma Prescott BNPon 11-17-2021 Natriuretic peptide B (Bld) [Mass/Vol] 698.0 pg/mL Normal <=1,800.0 [facility] Comment on above: Performed By: #### C MP, BNP, CRP #### [facility] [address] [address] [address] Alma Prescott CBC AUTO DIFFon 11-17-2021 BASO # 0.1 103/ul Normal 0.0-0.1 [facility] Comment on above: Performed By: #### C BC #### [facility] [address] [address] [address] Alma Prescott Basophils/100 WBC (Bld) 0.9 % Normal 0.2-2.0 [facility] Comment on above: Performed By: #### C BC #### [facility] [address] [place] [address] Dr. Alma Prescott EO # 0.4 103/ul Normal 0.0-0.7 [facility] Comment on above: Performed By: #### C BC #### [facility] [address] [place] [address] Dr. Alma Prescott Eosinophils/100 WBC (Bld) 5.5 % Normal 0.9-7.0 [facility] Comment on above: Performed By: #### C BC #### [facility] [address] [place] [address] Dr. Alma Prescott Erythrocyte distribution width (RBC) [Ratio] 14.6 % Normal 11.0-15.0 [facility] Comment on above: Performed By: #### C BC #### [facility] [address] [place] [address] Dr. Alma Prescott Hematocrit (Bld) [Volume fraction] 33.5 % Critically low 42.0-54.0 [facility] Comment on above: Performed By: #### C BC #### [facility] [address] [place] [address] Dr. Alma Prescott Hemoglobin (Bld) [Mass/Vol] 10.6 g/dL Critically low 14.0-18.0 [facility] Comment on above: Performed By: #### C BC #### [facility] [address] [place] [address] Dr. Alma Prescott IG # 0.02 10e3/ul Normal 0.00-0.03 [facility] Comment on above: Performed By: #### C BC #### [facility] [address] [place] [address] Dr. Alma Prescott IG % 0.3 % Normal 0.0-0.5 [facility] Comment on above: Performed By: #### C BC #### [facility] [address] [place] [address] Dr. Alma Prescott LYMPH # 1.4 103/ul Normal 1.2-3.8 [facility] Comment on above: Performed By: #### C BC #### [facility] [address] [place] [address] Dr. Alma Prescott Lymphocytes/100 WBC (Bld) 21.1 % Normal 20.5-60.0 [facility] Comment on above: Performed By: #### C BC #### [facility] [address] [place] [address] Dr. Alma Prescott MANUAL DIFF REQ NO Normal [facility] Comment on above: Performed By: #### C BC #### [facility] [address] [place] [address] Dr. Alma Prescott MCH (RBC) [Entitic mass] 29.0 pg Normal 25.9-34.0 [facility] Comment on above: Performed By: #### C BC #### [facility] [address] [place] [address] Dr. Alma Prescott MCHC (RBC) [Mass/Vol] 31.6 g/dL Normal 29.9-35.2 [facility] Comment on above: Performed By: #### C BC #### [facility] [address] [place] [address] Dr. Alma Prescott MCV (RBC) [Entitic vol] 91.8 fL Normal 80.0-94.0 [facility] Comment on above: Performed By: #### C BC #### [facility] [address] [place] [address] Dr. Alma Prescott MONO # 0.7 103/ul Normal 0.3-0.8 [facility] Comment on above: Performed By: #### C BC #### [facility] [address] [place] [address] Dr. Alma Prescott Monocytes/100 WBC (Bld) 10.8 % Normal 1.7-12.0 [facility] Comment on above: Performed By: #### C BC #### [facility] [address] [place] [address] Dr. Alma Prescott NEUT # 4.0 103/ul Normal 1.4-6.5 [facility] Comment on above: Performed By: #### C BC #### [facility] [address] [place] [address] Dr. Alma Prescott Neutrophils/100 WBC (Bld) 61.4 % Normal 43.0-75.0 [facility] Comment on above: Performed By: #### C BC #### [facility] [address] [place] [address] Dr. Alma Prescott Platelet mean volume (Bld) [Entitic vol] 9.5 fL Normal 9.5-13.5 [facility] Comment on above: Performed By: #### C BC #### [facility] [address] [place] [address] Dr. Alma Prescott PLT 223 103/ul Normal 150-450 [facility] Comment on above: Performed By: #### C BC #### [facility] [address] [place] [address] Dr. Alma Prescott RBC 3.65 106/ul Critically low 4.70-6.10 [facility] Comment on above: Performed By: #### C BC #### [facility] Laboratory [address] [place] [address] Dr. Alma Prescott WBC 6.6 103/ul Normal 4.0-11.0 [facility] Comment on above: Performed By: #### C BC #### [facility] [address] [place] [address] Dr. Alma Prescott CRPon 11-17-2021 CRP [Mass/Vol] mg/L Normal <=1.0 The [facility] Comment on above: Performed By: #### C MP, BNP, CRP #### [facility] [address] [place] [address] Dr. Alma Prescott PROF 14(COMP METB)on 022 Albumin [Mass/Vol] 2.9 g/dL Critically low 3.4-5.0 [facility] Comment on above: Performed By: #### C MP, BNP, CRP #### [facility] [address] [address] [address] Alma Prescott Albumin/Globulin [Mass ratio] 0.8 {ratio} Normal [facility] Comment on above: Performed By: #### C MP, BNP, CRP #### [facility] [address] [address] [address] Alma Prescott ALP [Catalytic activity/Vol] 64 U/L Normal 46-116 [facility] Comment on above: Performed By: #### C MP, BNP, CRP #### [facility] [address] [address] [address] Alma Prescott ALT [Catalytic activity/Vol] 30 U/L Normal 16-63 [facility] Comment on above: Performed By: #### C MP, BNP, CRP #### [facility] [address] [address] [address] Alma Prescott Anion gap [Moles/Vol] 13.1 mmol/L Normal [facility] Comment on above: Performed By: #### C MP, BNP, CRP #### [facility] [address] [address] [address] Alma Prescott AST [Catalytic activity/Vol] 24 U/L Normal 15-37 [facility] Comment on above: Performed By: #### C MP, BNP, CRP #### [facility] [address] [address] [address] Alma Prescott Bilirubin [Mass/Vol] 0.3 mg/dL Normal 0.2-1.0 [facility] Comment on above: Performed By: #### C MP, BNP, CRP #### [facility] [address] [address] [address] Alma Prescott Calcium [Mass/Vol] 8.7 mg/dL Normal 8.5-10.1 [facility] Comment on above: Performed By: #### C MP, BNP, CRP #### [facility] [address] [place] [address] Dr. Alma Prescott Chloride [Moles/Vol] 103 mmol/L Normal 98-107 [facility] Comment on above: Performed By: #### C MP, BNP, CRP #### [facility] [address] [place] [address] Dr. Alma Prescott CO2 [Moles/Vol] 26.5 mmol/L Normal 21.0-32.0 [facility] Comment on above: Performed By: #### C MP, BNP, CRP #### [facility] [address] [place] [address] Dr. Alma Prescott Creatinine [Mass/Vol] 1.79 mg/dL Critically high 0.70-1.30 [facility] Comment on above: Performed By: #### C MP, BNP, CRP #### [facility] [address] [place] [address] Dr. Alma Prescott EGFR-AF QATARI 44 mL/min/1.73m2 Critically low >=60 [facility] Comment on above: Performed By: #### C MP, BNP, CRP #### [facility] [address] [place] [address] Dr. Alma Prescott EGFR-NON AF QATARI 36 mL/min/1.73m2 Critically low >=60 [facility] Comment on above: Performed By: #### C MP, BNP, CRP #### [facility] [address] [place] [address] Dr. Alma Prescott Globulin (S) [Mass/Vol] 3.7 g/dL Normal [facility] Comment on above: Performed By: #### C MP, BNP, CRP #### [facility] [address] [place] [address] Dr. Alma Prescott Glucose [Mass/Vol] 139 mg/dL Critically high 74-106 [facility] Comment on above: Performed By: #### C MP, BNP, CRP #### [facility] [address] [place] [address] Dr. Alma Prescott Potassium [Moles/Vol] 4.6 mmol/L Normal 3.5-5.1 [facility] Comment on above: Performed By: #### C MP, BNP, CRP #### [facility] [address] [place] [address] Dr. Alma Prescott Protein [Mass/Vol] 6.6 g/dL Normal 6.4-8.2 [facility] Comment on above: Performed By: #### C MP, BNP, CRP #### [facility] [address] [place] [address] Dr. Alma Prescott Sodium [Moles/Vol] 138 mmol/L Normal 136-145 [facility] Comment on above: Performed By: #### C MP, BNP, CRP #### [facility] [address] [place] [address] Dr. Alma Prescott Urea nitrogen [Mass/Vol] 21.0 mg/dL Critically high 7.0-18.0 [facility] Comment on above: Performed By: #### C MP, BNP, CRP #### [facility] [address] [place] [address] Dr. Alma Prescott Urea nitrogen/Creatinine [Mass ratio] 11.7 mg/mg Normal [facility] Comment on above: Performed By: #### C MP, BNP, CRP #### [facility] [address] [place] [address] Dr. Alma Prescott BNPon 11-16-2021 Natriuretic peptide B (Bld) [Mass/Vol] 542.0 pg/mL Normal <=1,800.0 [facility] Comment on above: Performed By: #### A ST, LIPID, ALT, BMP #### [facility] [address] [place] [address] Dr. Alma Prescott CBC AUTO DIFFon 11-16-2021 BASO # 0.1 103/ul Normal 0.0-0.1 [facility] Comment on above: Performed By: #### C MP, BNP #### [facility] [address] [place] [address] Dr. Alma Prescott Basophils/100 WBC (Bld) 1.1 % Normal 0.2-2.0 [facility] Comment on above: Performed By: #### C MP, BNP #### [facility] [address] [place] [address] Dr. Alma Prescott EO # 0.4 103/ul Normal 0.0-0.7 [facility] Comment on above: Performed By: #### C MP, BNP #### [facility] [address] [place] [address] Dr. Alma Prescott Eosinophils/100 WBC (Bld) 5.8 % Normal 0.9-7.0 [facility] Comment on above: Performed By: #### C MP, BNP #### [facility] [address] [place] [address] Dr. Alma Prescott Erythrocyte distribution width (RBC) [Ratio] 14.6 % Normal 11.0-15.0 [facility] Comment on above: Performed By: #### C MP, BNP #### [facility] [address] [place] [address] Dr. Alma Prescott Hematocrit (Bld) [Volume fraction] 34.2 % Critically low 42.0-54.0 [facility] Comment on above: Performed By: #### C MP, BNP #### [facility] [address] [place] [address] Dr. Alma Prescott Hemoglobin (Bld) [Mass/Vol] 10.9 g/dL Critically low 14.0-18.0 [facility] Comment on above: Performed By: #### C MP, BNP #### [facility] [address] [place] [address] Dr. Alma Prescott IG # 0.02 10e3/ul Normal 0.00-0.03 [facility] Comment on above: Performed By: #### C MP, BNP #### [facility] [address] [place] [address] Dr. Alma Prescott IG % 0.3 % Normal 0.0-0.5 [facility] Comment on above: Performed By: #### C MP, BNP #### [facility] [address] [place] [address] Dr. Alma Prescott LYMPH # 1.6 103/ul Normal 1.2-3.8 [facility] Comment on above: Performed By: #### C MP, BNP #### [facility] [address] [place] [address] Dr. Alma Prescott Lymphocytes/100 WBC (Bld) 26.1 % Normal 20.5-60.0 [facility] Comment on above: Performed By: #### C MP, BNP #### [facility] [address] [place] [address] Dr. Alma Prescott MANUAL DIFF REQ NO Normal [facility] Comment on above: Performed By: #### C MP, BNP #### [facility] [address] [place] [address] Dr. Alma Prescott MCH (RBC) [Entitic mass] 29.6 pg Normal 25.9-34.0 [facility] Comment on above: Performed By: #### C MP, BNP #### [facility] [address] [place] [address] Dr. Alma Prescott MCHC (RBC) [Mass/Vol] 31.9 g/dL Normal 29.9-35.2 [facility] Comment on above: Performed By: #### C MP, BNP #### [facility] [address] [place] [address] Dr. Alma Prescott MCV (RBC) [Entitic vol] 92.9 fL Normal 80.0-94.0 [facility] Comment on above: Performed By: #### C MP, BNP #### [facility] [address] [place] [address] Dr. Alma Prescott MONO # 0.6 103/ul Normal 0.3-0.8 [facility] Comment on above: Performed By: #### C MP, BNP #### [facility] [address] [place] [address] Dr. Alma Prescott Monocytes/100 WBC (Bld) 9.5 % Normal 1.7-12.0 [facility] Comment on above: Performed By: #### C MP, BNP #### [facility] [address] [place] [address] Dr. Alma Prescott NEUT # 3.5 103/ul Normal 1.4-6.5 [facility] Comment on above: Performed By: #### C MP, BNP #### [facility] [address] [place] [address] Dr. Alma Prescott Neutrophils/100 WBC (Bld) 57.2 % Normal 43.0-75.0 [facility] Comment on above: Performed By: #### C MP, BNP #### [facility] [address] [place] [address] Dr. Alma Prescott Platelet mean volume (Bld) [Entitic vol] 9.7 fL Normal 9.5-13.5 [facility] Comment on above: Performed By: #### C MP, BNP #### [facility] [address] [place] [address] Dr. Alma Prescott PLT 209 103/ul Normal 150-450 [facility] Comment on above: Performed By: #### C MP, BNP #### [facility] [address] [place] [address] Dr. Alma Prescott RBC 3.68 106/ul Critically low 4.70-6.10 [facility] Comment on above: Performed By: #### C MP, BNP #### [facility] [address] [place] [address] Dr. Alma Prescott WBC 6.2 103/ul Normal 4.0-11.0 [facility] Comment on above: Performed By: #### C MP, BNP #### [facility] [address] [place] [address] Dr. Alma Prescott CULTURE BLOODon 11-16-2021 Microscopic examination of blood, culture Culture Observations: NO GROWTH AT 5 DAYS. [facility] Comment on above: Performed By: #### C MP, BNP #### [facility] [address] [place] [address] Dr. Alma Prescott Microscopic examination of blood, culture Culture Observations: NO GROWTH AT 5 DAYS. [facility] Comment on above: Performed By: #### C MP, BNP #### [facility] [address] [place] [address] Dr. Alma Prescott Covid-19 PCR (CVDTBH)on 10-25 SARS-CoV-2 (COVID-19) RNA ANGELLA+probe Ql (Unsp spec) Not detected Normal NOT DETECTED [facility] Comment on above: Result Comment: When [...] for this test is supported by the [employer] of Health and Human Service's declaration that [...] #### A ST, LIPID, ALT, BMP #### [facility] [address] [place] [address] Dr. Alma Prescott ER URINE PROFILEon Bilirubin Ql (U) Negative Normal NEGATIVE [facility] Comment on above: Performed By: #### A ST, LIPID, ALT, BMP #### [facility] [address] [place] [address] Dr. Alma Prescott Clarity (U) CLEAR Normal CLEAR [facility] Comment on above: Performed By: #### A ST, LIPID, ALT, BMP #### [facility] [address] [place] [address] Dr. Alma Prescott Color (U) LT. YELLOW Normal YELLOW [facility] Comment on above: Performed By: #### A ST, LIPID, ALT, BMP #### [facility] [address] [place] [address] Dr. Alma Prescott ERUAHD A micrscopic examina tion will be performed if indicated. Normal [facility] Comment on above: Performed By: #### A ST, LIPID, ALT, BMP #### [facility] [address] [place] [address] Dr. Alma Prescott Glucose Ql (U) Negative Normal NEGATIVE [facility] Comment on above: Performed By: #### A ST, LIPID, ALT, BMP #### [facility] [address] [place] [address] Dr. Alma Prescott Hemoglobin Ql (U) TRACE-INTACT Abnormal NEGATIVE [facility] Comment on above: Performed By: #### A ST, LIPID, ALT, BMP #### [facility] [address] [place] [address] Dr. Alma Prescott Ketones Ql (U) Negative Normal NEGATIVE [facility] Comment on above: Performed By: #### A ST, LIPID, ALT, BMP #### [facility] [address] [place] [address] Dr. Alma Prescott LEUKOCYTES Negative Normal NEGATIVE [facility] Comment on above: Performed By: #### A ST, LIPID, ALT, BMP #### [facility] [address] [place] [address] Dr. Alma Prescott Nitrite Ql (U) Negative Normal NEGATIVE [facility] Comment on above: Performed By: #### A ST, LIPID, ALT, BMP #### [facility] [address] [place] [address] Dr. Alma Prescott pH (U) 6.5 [pH] Normal 5-9 [facility] Comment on above: Performed By: #### A ST, LIPID, ALT, BMP #### [facility] [address] [place] [address] Dr. Alma Prescott Protein (U) [Mass/Vol] 100 mg/dL Abnormal NEGAT SERA/ TRACE [facility] Comment on above: Performed By: #### A ST, LIPID, ALT, BMP #### [facility] [address] [place] [address] Dr. Alma Prescott SPEC GRAVITY 1.010 Normal 1.005-<=1. 025 [facility] Comment on above: Performed By: #### A ST, LIPID, ALT, BMP #### [facility] [address] [place] [address] Dr. Alma Prescott UR MICRO IND INDICATED Normal [facility] Comment on above: Performed By: #### A ST, LIPID, ALT, BMP #### [facility] [address] [place] [address] Dr. Alma Prescott Urobilinogen Qn (U) 0.2 {Chema'U}/dL Normal 0.2 - 1. 0 [facility] Comment on above: Performed By: #### A ST, LIPID, ALT, BMP #### [facility] [address] [place] [address] Dr. Alma Prescott LACTATE/LACTIC ACIDon 2021 Lactate [Moles/Vol] 0.4 mmol/L Normal 0.4-1.9 [facility] Comment on above: Performed By: #### C BC #### [facility] [address] [place] [address] Dr. Alma Prescott PROF CHEM 8 (BAS METB)on Anion gap [Moles/Vol] 13.9 mmol/L Normal [facility] Comment on above: Performed By: #### A ST, LIPID, ALT, BMP #### [facility] [address] [place] [address] Dr. Alma Prescott Calcium [Mass/Vol] 8.7 mg/dL Normal 8.5-10.1 [facility] Comment on above: Performed By: #### A ST, LIPID, ALT, BMP #### [facility] [address] [place] [address] Dr. Alma Prescott Chloride [Moles/Vol] 102 mmol/L Normal 98-107 [facility] Comment on above: Performed By: #### A ST, LIPID, ALT, BMP #### [facility] [address] [place] [address] Dr. Alma Prescott CO2 [Moles/Vol] 26.8 mmol/L Normal 21.0-32.0 [facility] Comment on above: Performed By: #### A ST, LIPID, ALT, BMP #### [facility] [address] [address] [address] Alma Prescott Creatinine [Mass/Vol] 1.91 mg/dL Critically high 0.70-1.30 [facility] Comment on above: Performed By: #### A ST, LIPID, ALT, BMP #### [facility] [address] [address] [address] Alma Prescott EGFR-AF QATARI 41 mL/min/1.73m2 Critically low >=60 [facility] Comment on above: Performed By: #### A ST, LIPID, ALT, BMP #### [facility] [address] [address] [address] Alma Prescott EGFR-NON AF QATARI 34 mL/min/1.73m2 Critically low >=60 [facility] Comment on above: Performed By: #### A ST, LIPID, ALT, BMP #### [facility] [address] [place] [address] Dr. Alma Prescott Glucose [Mass/Vol] 76 mg/dL Normal 74-106 [facility] Comment on above: Performed By: #### A ST, LIPID, ALT, BMP #### [facility] [address] [address] [address] Alma Prescott Potassium [Moles/Vol] 4.7 mmol/L Normal 3.5-5.1 [facility] Comment on above: Performed By: #### A ST, LIPID, ALT, BMP #### [facility] [address] [address] [address] Alma Prescott Sodium [Moles/Vol] 138 mmol/L Normal 136-145 [facility] Comment on above: Performed By: #### A ST, LIPID, ALT, BMP #### [facility] [address] [address] [address] Alma Prescott Urea nitrogen [Mass/Vol] 21.0 mg/dL Critically high 7.0-18.0 [facility] Comment on above: Performed By: #### A ST, LIPID, ALT, BMP #### [facility] [address] [address] [address] Alma Prescott Urea nitrogen/Creatinine [Mass ratio] 11.0 mg/mg Normal [facility] Comment on above: Performed By: #### A ST, LIPID, ALT, BMP #### [facility] [address] [place] [address] Dr. Alma Prescott TROPONIN, HIGH SENSITIVITYon 11-16-2021 HSTROP 20.5 pg/mL Normal 4.0-76.1 [facility] Comment on above: Result Comment: CUT- OFF POINTS HAVE BEEN ESTABLISHED BASED ON THE FOURTH UNIVERSAL DEFINITIONS OF MYOCARDIAL INFARCTION. THE UPPER REFERENCE LIMIT (URL) OF TROPONIN, DEFINED THE 99TH PERCENTILE OF cTnI DISTRIBUTION IN A REFERENCE POPULATION, HAS BEEN CONFIRMED THE DECISION THRESHOLD FOR PR DIAGNOSIS. Performed By: #### A ST, LIPID, ALT, BMP #### [facility] [address] [place] [address] Dr. Alma Prescott URINE MICROSCOPIC ONLYon BACTERIA NONE SEEN Normal NONE SEEN [facility] Comment on above: Performed By: #### A ST, LIPID, ALT, BMP #### [facility] [address] [place] [address] Dr. Alma Prescott Bacteria identified Cx Nom (U) NOT INDICATED Normal [facility] Comment on above: Performed By: #### A ST, LIPID, ALT, BMP #### [facility] [address] [place] [address] Dr. Alma Prescott CAST NONE SEEN Normal NONE SEEN [facility] Comment on above: Performed By: #### A ST, LIPID, ALT, BMP #### [facility] [address] [place] [address] Dr. Alma Prescott Crystals LM Nom (Urine sed) NONE SEEN Normal NONE SEEN [facility] Comment on above: Performed By: #### A ST, LIPID, ALT, BMP #### [facility] [address] [place] [address] Dr. Alma Prescott Epithelial cells LM Ql (Urine sed) RARE Normal NONE SEEN /RARE [facility] Comment on above: Performed By: #### A ST, LIPID, ALT, BMP #### [facility] [address] [place] [address] Dr. Alma Prescott MUCOUS NONE SEEN Normal NONE SEEN [facility] Comment on above: Performed By: #### A ST, LIPID, ALT, BMP #### [facility] [address] [address] [address] Alma Prescott RBC 2-5 Abnormal 0-2 [facility] Comment on above: Performed By: #### A ST, LIPID, ALT, BMP #### [facility] [address] [place], [place] [address] Dr. Alma Prescott WBC NONE SEEN Normal NONE SEEN [facility] Comment on above: Performed By: #### A ST, LIPID, ALT, BMP #### [facility] [address] [place], [place] [address] Dr. Alma Prescott US GRAY DOP LEG [...] ALYSON NIETO Date: 2021-11-16 20:39 Normal [facility] XR CHEST 1 Von 11-16-2021 XR [...] by: STEVO DAVID Date: 2021-11-16 12:51 Normal [facility] C-PEPTIDE, SERUMon 2 C-Peptide, Serum 0.9 ng/mL Critically low 1.1-4.4 [facility] Comment on above: Result Comment: C-Pe ptide reference interval is for fasting patients. Performed By: #### A ST, LIPID, ALT, BMP #### [facility] [address] [address] [address] Alma Prescott ALBUMINon 11-02-2021 Albumin [Mass/Vol] 3.3 g/dL Critically low 3.4-5.0 [facility] Comment on above: Performed By: #### A ST, LIPID, ALT, BMP #### [facility] [address] [address] [address] Alma Prescott LIPID PROFILEon 11-02-2021 CHOL-HDL RATIO NORM SEE BELOW Normal [facility] Comment on above: Result Comment: 3.3 - 4.4 LOW RISK 4.4 - 7.1 AVERAGE RISK 7.1 - 11.0 MODERATE RISK >11.0 HIGH RISK Performed By: #### A ST, LIPID, ALT, BMP #### [facility] [address] [address] [address] Alma Prescott Cholesterol [Mass/Vol] 172 mg/dL Normal <=200 [facility] Comment on above: Performed By: #### A ST, LIPID, ALT, BMP #### [facility] [address] [address] [address] Alma Prescott Cholesterol in HDL [Mass/Vol] 62 mg/dL Critically high 40-60 [facility] Comment on above: Performed By: #### A ST, LIPID, ALT, BMP #### [facility] [address] [address] [address] Alma Prescott Cholesterol in LDL [Mass/Vol] 93.2 mg/dL Normal [facility] Comment on above: Performed By: #### A ST, LIPID, ALT, BMP #### [facility] [address] [address] [address] Alma Prescott Cholesterol.total/Yanely sterol in HDL [Mass ratio] 2.8 {ratio} Normal [facility] Comment on above: Performed By: #### A ST, LIPID, ALT, BMP #### [facility] [address] [address] [address] Alma Prescott HDL NORMAL > or = 60 mg/dl - LO W CARDIOVASCULAR RISK <40 mg/dl - HIGH CARDIOVASCULAR RISK Normal [facility] Comment on above: Performed By: #### A ST, LIPID, ALT, BMP #### [facility] [address] [address] [address] Alma Prescott LDL CALC NORMAL SEE BELOW Normal [facility] Comment on above: Result Comment: <100 mg/dl OPTIMAL 100 - 129 mg/dl NEAR OR ABOVE OPTIMAL 130 - 159 mg/dl BORDERLINE HIGH 160 - 189 mg/dl HIGH >190 mg/dl VERY HIGH Performed By: #### A ST, LIPID, ALT, BMP #### [facility] [address] [address] [address] Alma Prescott Triglyceride [Mass/Vol] 84 mg/dL Normal <=150 [facility] Comment on above: Performed By: #### A ST, LIPID, ALT, BMP #### [facility] [address] [address] [address] Alma Prescott VLDL CALC 16.8 mg/dL Normal [facility] Comment on above: Performed By: #### A ST, LIPID, ALT, BMP #### [facility] [address] [address] [address] Alma Prescott MICROALB CREAT RATIO RANDOMo n 11-02-2021 mALB 35.8 mg/L Critically high <=30.0 [facility] Comment on above: Performed By: #### C MP, BNP, CRP #### [facility] [address] [address] [address] Alma Prescott MALB CR RATIO 518.7 mg/g Critically high 0.0-29.9 [facility] Comment on above: Performed By: #### C MP, BNP, CRP #### [facility] [address] [address] [address] Alma Prescott MALB CR RATIO RANGE SEE BELOW Normal [facility] Comment on above: Result Comment: NO M ICROALBUMINURIA 0-29 MG/G CLINICAL MICROALBUMINURIA 30-300 MG/G MACROALBUMINURIA >300 MG/G Performed By: #### C MP, BNP, CRP #### [facility] [address] [place] [address] Dr. Alma Prescott URINE CREAT 69.02 mg/dL Normal 20.00-300. 00 [facility] Comment on above: Performed By: #### C MP, BNP, CRP #### [facility] [address] [place] [address] Dr. Alma Prescott PHOSPHORUSon 11-02-2021 Phosphate [Mass/Vol] 4.1 mg/dL Normal 2.6-4.7 [facility] Comment on above: Performed By: #### A ST, LIPID, ALT, BMP #### [facility] [address] [place] [address] Dr. Alma Prescott PROF CHEM 8 (BAS METB)on Anion gap [Moles/Vol] 15.6 mmol/L Normal [facility] Comment on above: Performed By: #### A ST, LIPID, ALT, BMP #### [facility] [address] [place] [address] Dr. Alma Prescott Calcium [Mass/Vol] 8.7 mg/dL Normal 8.5-10.1 [facility] Comment on above: Performed By: #### A ST, LIPID, ALT, BMP #### [facility] [address] [place] [address] Dr. Alma Prescott Chloride [Moles/Vol] 106 mmol/L Normal 98-107 [facility] Comment on above: Performed By: #### A ST, LIPID, ALT, BMP #### [facility] [address] [place] [address] Dr. Alma Prescott CO2 [Moles/Vol] 23.7 mmol/L Normal 21.0-32.0 [facility] Comment on above: Performed By: #### A ST, LIPID, ALT, BMP #### [facility] [address] [place] [address] Dr. Alma Prescott Creatinine [Mass/Vol] 1.65 mg/dL Critically high 0.70-1.30 [facility] Comment on above: Performed By: #### A ST, LIPID, ALT, BMP #### [facility] [address] [place], [place] [address] Dr. Alma Prescott EGFR-AF QATARI 48 mL/min/1.73m2 Critically low >=60 [facility] Comment on above: Performed By: #### A ST, LIPID, ALT, BMP #### [facility] [address] [place] [address] Dr. Alma Prescott EGFR-NON AF QATARI 40 mL/min/1.73m2 Critically low >=60 [facility] Comment on above: Performed By: #### A ST, LIPID, ALT, BMP #### [facility] [address] [place] [address] Dr. Alma Prescott Glucose [Mass/Vol] 71 mg/dL Critically low 74-106 [facility] Comment on above: Performed By: #### A ST, LIPID, ALT, BMP #### [facility] [address] [place] [address] Dr. Alma Prescott Potassium [Moles/Vol] 4.3 mmol/L Normal 3.5-5.1 [facility] Comment on above: Performed By: #### A ST, LIPID, ALT, BMP #### [facility] [address] [place] [address] Dr. Alma Prescott Sodium [Moles/Vol] 141 mmol/L Normal 136-145 [facility] Comment on above: Performed By: #### A ST, LIPID, ALT, BMP #### [facility] [address] [place] [address] Dr. Alma Prescott Urea nitrogen [Mass/Vol] 21.0 mg/dL Critically high 7.0-18.0 [facility] Comment on above: Performed By: #### A ST, LIPID, ALT, BMP #### [facility] [address] [place] [address] Dr. Alma Prescott Urea nitrogen/Creatinine [Mass ratio] 12.7 mg/mg Normal [facility] Comment on above: Performed By: #### A ST, LIPID, ALT, BMP #### [facility] [address] [address] [address] Alma Prescott Radiologyon 11-02-2021 XR Chest 2 Views Normal [facility] 250 DO Work Phone: SGOTon 11-02-2021 AST [Catalytic activity/Vol] 26 U/L Normal 15-37 [facility] Comment on above: Performed By: #### A ST, LIPID, ALT, BMP #### [facility] [address] [address] [address] Alma Prescott SGPTon 11-02-2021 ALT [Catalytic activity/Vol] 36 U/L Normal 16-63 [facility] Comment on above: Performed By: #### A ST, LIPID, ALT, BMP #### [facility] [address] [place], [place] [address] Dr. Alma Prescott VITAMIN D 25 OHon 11-02-2021 VIT D 25-OH 39.7 ng/mL Normal [facility] Comment on above: Performed By: #### A ST, LIPID, ALT, BMP #### [facility] [address] [address] [address] Alma Prescott VIT D RANGES SEE BELOW Normal [facility] Comment on above: Result Comment: <20 ng/mL Vit D deficient 20 - <30 ng/mL Vit D insufficient 30 - 100 ng/mL Vit D sufficient >100 ng/mL Potential Toxicity Performed By: #### A ST, LIPID, ALT, BMP #### [facility] [address] [place], [place] [address] Dr. Alma Prescott Office Visit (Cardiology)on 09-18-2021 [...] IO EKG Electrocardiogram- 12 Lead; Status:Complete; Done: [id number] Class 1 obesity with body mass index (BMI) of 32.0 to 32.9 in adult Healthy Weight Tips; Status:Complete - Retrospective Authorization; Done: [id number] Unlinked Stop: Bumetanide 1 MG Oral Tablet Patient Instructions By signing my name below, I, Erich Turner LPN ,Scribe, attest that this documentation has been prepared under the direction and in the presence of Dr. Felice Lyons MD. All medical record entries made by [...] up per routine - per Dr. Felice Lyons MD PFT/CXR annually labs q 6 mos Chief Complaint RACHEL HOLLINGSWORTH is being seen for a 6 month [...] 1 TABL (more content not included)... Normal [facility] Tobacco Screening.on Adult depression screening assessment No [facility] UndaKamilla ardon 250 DO Work Phone: Fall risk assessment a) No falls within the last year [facility] Katy ardon 250 DO Work Phone: Tobacco use status CPHS b) No M [facility]!Susan ardon 250 DO Work Phone: US GRAY DOP LEG BILon US GRAY DOP LEG BRITTANY EXAMINATION: US [...] STEVO DAVID Date: 2021-09-05 13:34 Normal [facility] CULTURE WOUNDon 07-06-2021 CULTURE WOUND Specimen Comments: RIGHT LOWER LEG Culture Observations: GB STREP CALD TO DIAMOND.MonoRN@0925/07/06/21/R K Isolate 1 Proteus mirabilis Heavy growth of Isolate 2 Streptococcus agalactiae Heavy growth of ORGANISM 1 Proteus mirabilis ANTIBIOTIC M.I.C RX STATUS Ampicillin >=32 R F Ampicillin/Sulbactam <=2 S F Piperacillin/Tazobactam <=4 S F Cefazolin >=64 R F Ceftazidime <=1 R F Ceftriaxone <=1 R F Ertapenem <=0.5 S F Imipenem 2 S F Amikacin <=2 S F Gentamicin <=1 S F Tobramycin <=1 S F Ciprofloxacin <=0.25 S F Levofloxacin <=0.12 S F Trimethoprim/Sulfamethoxa zole <=20 S F ORGANISM 2 Streptococcus agalactiae ANTIBIOTIC M.I.C RX STATUS Benzylpenicillin <=0.06 S F Ampicillin <=0.25 S F Cefotaxime <=0.12 S F Ceftriaxone <=0.12 S F Levofloxacin 0.5 S F Inducible Clindamycin Resistance Neg NEG F Erythromycin <=0.12 S F Clindamycin <=0.25 S F Linezolid <=2 S F Vancomycin 0.5 S F Tetracycline <=0.25 S F Normal [facility] Comment on above: Performed By: #### C MP, BNP #### [facility] [address] [address] [address] Alma YUEN STAINon 07-04-2021 DIPHTHEROIDS Normal [facility] Comment on above: Performed By: #### A ST, LIPID, ALT, BMP #### [facility] [address] [address] [address] Alma Prescott EPITHELIALS Normal [facility] Comment on above: Performed By: #### A ST, LIPID, ALT, BMP #### [facility] [address] [address] [address] Alma Prescott FUNGAL ELEMENTS Normal [facility] Comment on above: Performed By: #### A ST, LIPID, ALT, BMP #### [facility] [address] [address] [address] Alma YUEN NEG BACILLI MANY Normal [facility] Comment on above: Performed By: #### A ST, LIPID, ALT, BMP #### [facility] [address] [address] [address] Alma YUEN NEG DIPPLOCOCCI Normal [facility] Comment on above: Performed By: #### A ST, LIPID, ALT, BMP #### [facility] [address] [address] [address] Alma YUEN POS BACILLI Normal [facility] Comment on above: Performed By: #### A ST, LIPID, ALT, BMP #### [facility] [address] [place] [address] Dr. Alma Prescott GRAM POSITIVE COCCI MANY Normal [facility] Comment on above: Performed By: #### A ST, LIPID, ALT, BMP #### [facility] [address] [place] [address] Dr. Alma Prescott GRAM STAIN SOURCE RIGHT LOWER LEG Normal [facility] Comment on above: Performed By: #### A ST, LIPID, ALT, BMP #### [facility] [address] [address] [address] Alma Prescott GS_DIPTH Normal [facility] Comment on above: Performed By: #### A ST, LIPID, ALT, BMP #### [facility] [address] [id number] [address] Alma Prescott WBC FEW [facility] Comment on above: Performed By: #### A ST, LIPID, ALT, BMP #### [facility] [address] [id number] [address] Alma Prescott BASIC METABOLIC PANELon 02-0 Calcium [Mass/Vol] 8.7 mg/dL Normal 8.6-10.3 [facility] Comment on above: Performed By: #### 6 517 #### [facility] [place] [address] Assistant Buyer: Des Martell MD Chloride [Moles/Vol] 103 mmol/L Normal 98-110 [facility] Comment on above: Performed By: #### 6 517 #### [facility] [place] [address] Assistant Buyer: Des Martell MD CO2 [Moles/Vol] 24 mmol/L Normal 20-32 [facility] Comment on above: Performed By: #### 6 517 #### [facility] [place] [address] Assistant Buyer: Des Martell MD Creatinine [Mass/Vol] 1.65 mg/dL High 0.70-1.[address] [facility] Comment on above: Result Comment: For patients >49 years of age, the reference limit for Creatinine is approximately 13% higher for people identified as -[place]. Performed By: #### 6 517 #### [facility] [place] [address] Assistant Buyer: Des Martell MD eGFR NON-AFR. QATARI 38 mL/min/1.73m2 Low > OR = 60 [facility] Comment on above: Performed By: #### 6 517 #### [facility] [address] [place] [address] Assistant Buyer: Des Martell MD GFR/1.73 sq M.predicted among blacks MDRD (S/P/Bld) [Vol rate/Area] 44 mL/min/{1.73_m2} Low > OR = 60 [facility] Comment on above: Performed By: #### 6 517 #### [facility] [place] [address] Assistant Buyer: Des Martell MD Glucose [Mass/Vol] 150 mg/dL High 65-99 [facility] Comment on above: Result Comment: Fasting reference interval For someone without known diabetes, a glucose value >125 mg/dL indicates that they may have diabetes and this should be confirmed with a follow-up test. Performed By: #### 6 517 #### [facility] [address], [address] [place] [address] Assistant Buyer: Des Martell MD Potassium [Moles/Vol] 4.8 mmol/L Normal 3.5-5.[address] [facility] Comment on above: Performed By: #### 6 517 #### [facility] [place] [address] Assistant Buyer: Des Martell MD Sodium [Moles/Vol] 136 mmol/L Normal 135-146 [facility] Comment on above: Performed By: #### 6 517 #### [facility] [place] [address] Assistant Buyer: Des Martell MD Urea nitrogen [Mass/Vol] 27 mg/dL High 7-25 [facility] Comment on above: Performed By: #### 6 517 #### [facility] [place] [address] Assistant Buyer: Des Martell MD Urea nitrogen/Creatinine [Mass ratio] 16 mg/mg Normal 6-22 [facility] Comment on above: Performed By: #### 6 517 #### [facility] [place] [address] Assistant Buyer: Des Martell MD CBC (INCLUDES DIFF/PLT)on Basophils (Bld) [#/Vol] 0.059 10*3/uL Normal 0-200 [facility] Comment on above: Performed By: #### 6 517 #### [facility] [address] [place] [address] Assistant Buyer: Des Martell MD Basophils/100 WBC (Bld) 0.9 % Normal [facility] Comment on above: Performed By: #### 6 517 #### [facility] [address] [place] [address] Assistant Buyer: Des Martell MD Eosinophils (Bld) [#/Vol] 0.319 10*3/uL Normal 15-500 [facility] Comment on above: Performed By: #### 6 517 #### [facility] [address] [place] [address] Assistant Buyer: Des Martell MD Eosinophils/100 WBC (Bld) 4.9 % Normal [facility] Comment on above: Performed By: #### 6 517 #### [facility] [address] [place] [address] Assistant Buyer: Des Martell MD Erythrocyte distribution width (RBC) [Ratio] 14.4 % Normal 11.0-15.0 [facility] Comment on above: Performed By: #### 6 517 #### [facility] [address] [place] [address] Assistant Buyer: Des Martell MD Hematocrit (Bld) [Volume fraction] 32.1 % Low 38.5-50.0 [facility] Comment on above: Performed By: #### 6 517 #### [facility] [address] [place] [address] Assistant Buyer: Des Martell MD Hemoglobin (Bld) [Mass/Vol] 10.8 g/dL Low 13.2-17.1 [facility] Comment on above: Performed By: #### 6 517 #### [facility] [address] [place] [address] Assistant Buyer: Des Martell MD Lymphocytes (Bld) [#/Vol] 1.463 10*3/uL Normal 850-3900 [facility] Comment on above: Performed By: #### 6 517 #### [facility] [address] [place] [address] Assistant Buyer: Des Martell MD Lymphocytes/100 WBC (Bld) 22.5 % Normal [facility] Comment on above: Performed By: #### 6 517 #### [facility] [address] [place] [address] Assistant Buyer: Des Martell MD MCH (RBC) [Entitic mass] 29.0 pg Normal 27.0-33.0 [facility] Comment on above: Performed By: #### 6 517 #### [facility] [address] [place] [address] Assistant Buyer: Des Martell MD MCHC (RBC) [Mass/Vol] 33.6 g/dL Normal 32.0-36.[address] [facility] Comment on above: Performed By: #### 6 517 #### [facility] [address] [place] [address] Assistant Buyer: Des Martell MD MCV (RBC) [Entitic vol] 86.1 fL Normal 80.0-100.0 [facility] Comment on above: Performed By: #### 6 517 #### [facility] [place] [address] Assistant Buyer: Des Martell MD Monocytes (Bld) [#/Vol] 0.579 10*3/uL Normal 200-950 [facility] Comment on above: Performed By: #### 6 517 #### [facility] [address] [place] [address] Assistant Buyer: Des Martell MD Monocytes/100 WBC (Bld) 8.9 % Normal [facility] Comment on above: Performed By: #### 6 517 #### [facility] of [address], [address] [place] [address] Assistant Buyer: Des Martell MD Neutrophils (Bld) [#/Vol] 4.082 10*3/uL Normal 9495-6316 [facility] Comment on above: Performed By: #### 6 517 #### [facility] of [address], [address] [place] [address] Assistant Buyer: Des Martell MD Neutrophils/100 WBC (Bld) 62.8 % Normal [facility] Comment on above: Performed By: #### 6 517 #### [facility] [address] [place] [address] Assistant Buyer: Des Martell MD Platelet mean volume (Bld) [Entitic vol] 10.1 fL Normal 7.5-12.5 [facility] Comment on above: Performed By: #### 6 517 #### [facility] [address] [place] [address] Assistant Buyer: Des Martell MD Platelets (Bld) [#/Vol] 254 10*3/uL Normal 140-400 [facility] Comment on above: Performed By: #### 6 517 #### [facility] [address] [place] [address] Assistant Buyer: Des Martell MD RBC (Bld) [#/Vol] 3.73 10*6/uL Low 4.20-5.80 [facility] Comment on above: Performed By: #### 6 517 #### [facility] of [address], [address] [place] [address] Assistant Buyer: Des Martell MD WBC (Bld) [#/Vol] 6.5 10*3/uL Normal 3.8-10.8 [facility] Comment on above: Performed By: #### 6 517 #### [facility] of [address], [address] [place] [address] Assistant Buyer: Des Martell MD LIPID PANEL, STANDARDon 02-0 1-2022 Cholesterol [Mass/Vol] 182 mg/dL Normal <200 [facility] Comment on above: Performed By: #### 5 8984, 7600, 65823, 905, 02823, 6399, 718, 622 #### [facility] [address], [address] [place] [address] Assistant Buyer: Des Martell MD Cholesterol in HDL [Mass/Vol] 57 mg/dL Normal > OR = 40 [facility] Comment on above: Performed By: #### 5 8984, 7600, 63836, 905, 42035, 6399, 718, 622 #### [facility] [address], [address] [place] [address] Assistant Buyer: Des Martell MD Cholesterol in LDL [Mass/Vol] [...] estimation of LDL-C. Sanchez SS et al. MAIRELOS. 2013;310(19): 8822-5990 (http://education.Wellfount.Naurex/faq/ZFR868) Performed By: #### 5 8984, 7600, 55036, 905, 43047, 6399, 718, 622 #### [facility] [address], [address] [place] [address] Assistant Buyer: Des Martell MD Cholesterol.total/Yanely sterol in HDL [Mass ratio] 3.2 {ratio} Normal <5.0 [facility] Comment on above: Performed By: #### 5 8984, 7600, 22241, 905, 46761, 6399, 718, 622 #### [facility] [address], [address] [place] [address] Assistant Buyer: Des Martell MD NON HDL CHOLESTEROL 125 mg/dL (calc) Normal <130 [facility] Comment on above: Result Comment: For patients with diabetes plus 1 major ASCVD risk factor, treating to a non-HDL-C goal of <100 mg/dL (LDL-C of <70 mg/dL) is considered a therapeutic option. Performed By: #### 5 8984, 7600, 05087, 905, 36672, 6399, 718, 622 #### [facility] [address], [address] [place] [address] Assistant Buyer: Des Martell MD Triglyceride [Mass/Vol] 107 mg/dL Normal <150 [facility] Comment on above: Performed By: #### 5 8984, 7600, 66035, 905, 17533, 6399, 718, 622 #### [facility] [address], [address] [place] [address] Assistant Buyer: Des Martell MD MAGNESIUMon 06-26-2021 Magnesium [Mass/Vol] 1.7 mg/dL Normal 1.5-2.5 [facility] Comment on above: Performed By: #### 5 8984, 7600, 57082, 905, 16357, 6399, 718, 622 #### [facility] [address], [address] [place] [address] Assistant Buyer: Des Martell MD PHOSPHATE ( PHOSPHORUS)on 06-26-2021 Phosphate [Mass/Vol] 3.3 mg/dL Normal 2.1-4.3 [facility] Comment on above: Performed By: #### 5 8984, 7600, 91940, 905, 86493, 6399, 718, 622 #### [facility] [address], [address] [place] [address] Assistant Buyer: Des Martell MD PTH, INTACT WITHOUT CALCIUMo [...] By: #### 6 517 #### [facility] [place] [address] Assistant Buyer: Des Martell MD TSH+FREE T4on 06-26-2021 Free T4 [Mass/Vol] 0.9 ng/dL Normal 0.8-1.8 [facility] Comment on above: Performed By: #### 5 8984, 7600, 01369, 905, 72081, 6399, 718, 622 #### [facility] [place] [address] Assistant Buyer: Des Martell MD TSH Qn 14.49 m[IU]/L High 0.40-4.50 [facility] Comment on above: Performed By: #### 5 8984, 7600, 92386, 905, 93925, 6399, 718, 622 #### [facility] [place] [address] Assistant Buyer: Des Martell MD URIC ACIDon 06-26-2021 Urate [Mass/Vol] 7.0 mg/dL Normal 4.0-8.0 [facility] Comment on above: Result Comment: Ther apeutic target for gout patients: <6.0 mg/dL Performed By: #### 6 517 #### [facility] [place] [address] Assistant Buyer: Des Martell MD VITAMIN D,25-OH,TOTAL,IAon 0 06-26-2021 [...] D, (D2,D3), LC/MS/MS is recommended: order code 54849 (patients >2yrs). See Note 1 Note 1 For additional information, please refer to http://education.RadioScape/faq/YQG430 (This link is being provided for informational/ educational purposes only.) Performed By: #### 6 517 #### [facility] [address] [facility], [address] [place] [address] Assistant Buyer: Des Martell MD No Panel Informationon 06-21 8.9\S\8.9 Normal 8.2-10.2 -[facility]!-Norwal k 600 DO Work Phone: 21.8\S\21.8 below low threshold 22.0-30.0 -[facility] k 600 DO Work Phone: 103\S\103 Normal 95-114 [facility] Work Phone: 4.2\S\4.2 Normal 3.5-5.1 -[facility] Work Phone: 136\S\136 Normal 136-146 [facility] DO Work Phone: 47\S\47 Normal [facility] DO Work Phone: Comment on above: GFR estimated refere nce range: According to KDOQI guidelines, <60 ml/min/1.73m2 is sufficient to diagnose a patient with chronic kidney disease. 39\S\39 Normal [facility] Work Phone: 1.70\S\1.70 above high threshold 0.64-1.27 -[facility]-[place] k 600 DO Work Phone: 29\S\29 above high threshold 9-23 [facility] DO Work Phone: 53\S\53 below low threshold 70-100 [facility] Work Phone: [phone] Comment on above: Random Glucose Refer ence Range is dependent on time and content of last meal. Glucose of more than 200 mg/dL in a nonstressed, ambulatory subject supports the diagnosis of Diabetes Mellitus. ADA recommended reference range 32\S\32 Normal 10-42 [facility] Work Phone: [phone] 13.22\S\13.22 above high threshold 0.45-5.33 [facility] Work Phone: [phone] Comment on above: PERFORMED BY:[address] [address] [place] [id number] MEDICAL DIRECTORKARINA JOYNER M.D. Radiologyon 06-21-2021 XR Chest 2 Views Normal [facility] DO Work Phone: [phone] TSH+FREE T4on 03-23-2021 Free T4 [Mass/Vol] 1.2 ng/dL Normal 0.8-1.8 [facility] Comment on above: Order Comment: FASTI NG:UNKNOWN FASTING: UNKNOWN Performed By: #### 5 8984 #### [facility] [address], [address] [place], [place] [id number] Assistant Buyer: Des Martell MD TSH Qn 8.65 m[IU]/L High 0.40-4.50 [facility] Comment on above: Order Comment: FASTI NG:UNKNOWN FASTING: UNKNOWN Performed By: #### 5 8984 #### [facility] [address], [address] [place], [place] [id number] Assistant Buyer: Des Martell MD IO EKG Electrocardiogram- 12 Leadon 03-20-2021 IO EKG Electrocardiogram- 12 Lead See Scanned Document [facility] [place] [facility] Work Phone: Office Visit (Cardiology)on 03-20-2021 Follow-up visit Diagnoses/Problems Assessed Arteriosclerosis of coronary artery (414.00) (I25.10) Arteriosclerosis of carotid artery (433.10) (I65.29) High risk medication use (V58.69) (Z79.899) Atrial flutter (427.32) (I48.92) Coronary angioplasty status (V45.82) (Z98.61) Radial to OM also PTCA of LM/OM Essential hypertension, benign (401.1) (I10) Hyperlipidemia (272.4) (E78.5) Diabetes (250.00) (E11.9) Former smoker (V15.82) (Z87.891) quit 1964 Class 1 obesity with body mass index [...] Former smoker Tobacco Use Screening; Status:Complete; Done: [id number] Follow up in [6 ] months .fum Patient Instructions By signing my name below, IShahida Lpn, Scribcornelius, attest that this documentation has been prepared under the direction and in the presence of Dr. Felice Lyons MD. All medical record entries made by the Scribe were at my direction and personally dictated by me. I have reviewed the chart and agree that the record accurately reflects my personal performance of the history, physical exam, discussion and plan. Chief Complaint RACHEL HOLLINGSWORTH is being seen for a 6 month [...] Chloride E (more content not included)... Normal [facility] Tobacco Screening.on Fall risk assessment b) One or more fall s in the last year [facility] [place] 250 DO Work Phone: Tobacco use status CPHS b) No M -[facility] [employer] [place] 250 DO Work Phone: ALBUMIN, RANDOM URINE W/CREA TININEon 02-21-2021 ALBUMIN, URINE 60.1 mg/dL Normal See Note: [facility] Comment on above: Order Comment: SPLIT 02/16/2021 FROM [id number] Result Comment: Refe rence Range: Reference Range Not established Verified by repeat analysis. Performed By: #### 6 517 #### [facility] [address], [address] [place], [place] [id number] Assistant Buyer: Des Martell MD ALBUMIN/CREATININE RATIO, RANDOM URINE 1431 mcg/mg creat High <30 [facility] Comment on above: Order Comment: SPLIT 02/16/2021 FROM [id number] Result Comment: The ADA defines abnormalities in [...] By: #### 6 517 #### [facility] [address], [address] [place], [place] [id number] Assistant Buyer: Des Martell MD Creatinine (U) [Mass/Vol] 42 mg/dL Normal 20-320 [facility] Comment on above: Order Comment: SPLIT 02/16/2021 FROM [id number] Performed By: #### 6 517 #### [facility] [address], [address] [place] [address] Assistant Buyer: Des Martell MD [facility] 02-21-2021 Albumin [Mass/Vol] 3.7 g/dL Normal 3.6-5.1 [facility] Comment on above: Performed By: #### 7 600, 866, 899, 15102 #### [facility] of [address], [address] [place] [address] Assistant Buyer: Des Martell MD Albumin/Globulin [Mass ratio] 1.3 {ratio} Normal 1.0-2.5 [facility] Comment on above: Performed By: #### 7 600, 866, 899, 01637 #### [facility] [place] [address] Assistant Buyer: Des Martell MD ALP [Catalytic activity/Vol] 61 U/L Normal 35-144 [facility] Comment on above: Performed By: #### 7 600, 866, 899, 94331 #### [facility] [place] [address] Assistant Buyer: Des Martell MD ALT [Catalytic activity/Vol] 26 U/L Normal 9-46 [facility] Comment on above: Performed By: #### 7 600, 866, 899, 28672 #### [facility] [place] [address] Assistant Buyer: Des Martell MD AST [Catalytic activity/Vol] 25 U/L Normal 10-35 [facility] Comment on above: Performed By: #### 7 600, 866, 899, 37026 #### [facility] of [address], [address] [place] [address] Assistant Buyer: Des Martell MD Bilirubin [Mass/Vol] 0.4 mg/dL Normal 0.2-1.2 [facility] Comment on above: Performed By: #### 7 600, 866, 899, 53656 #### [facility] [place] [address] Assistant Buyer: Des Martell MD Calcium [Mass/Vol] 9.1 mg/dL Normal 8.6-10.3 [facility] Comment on above: Performed By: #### 7 600, 866, 899, 02192 #### [facility] [address] [address], [address] [place] [address] Assistant Buyer: Des Martell MD Chloride [Moles/Vol] 102 mmol/L Normal 98-110 Ques t [facility] Comment on above: Performed By: #### 7 600, 866, 899, 49137 #### [facility] [address], [address] [place] [address] Assistant Buyer: Des Martell MD CO2 [Moles/Vol] 25 mmol/L Normal 20-32 [facility] Comment on above: Performed By: #### 7 600, 866, 899, 49084 #### [facility] [address], [address] [place] [address] Assistant Buyer: Des Martell MD Creatinine [Mass/Vol] 1.92 mg/dL High 0.70-1.[address] [facility] Comment on above: Result Comment: For patients >49 years of age, the reference limit for Creatinine is approximately 13% higher for people identified as -[place]. Performed By: #### 7 600, 866, 899, 60046 #### [facility] [place] [address] Assistant Buyer: Des Martell MD eGFR NON-AFR. QATARI 31 mL/min/1.73m2 Low > OR = 60 [facility] Comment on above: Performed By: #### 7 600, 866, 899, 83351 #### [facility] [place] [address] Assistant Buyer: Des Martell MD GFR/1.73 sq M.predicted among blacks MDRD (S/P/Bld) [Vol rate/Area] 36 mL/min/{1.73_m2} Low > OR = 60 [facility] Comment on above: Performed By: #### 7 600, 866, 899, 74722 #### [facility] [place] [address] Assistant Buyer: Des Martell MD Globulin (S) [Mass/Vol] 2.9 g/dL Normal 1.9-3.7 Q uest [facility] Comment on above: Performed By: #### 7 600, 866, 899, 80401 #### [facility] [place] [address] Assistant Buyer: Des Martell MD Glucose [Mass/Vol] 159 mg/dL High 65-99 [facility] Comment on above: Result Comment: Fasting reference interval For someone without known diabetes, a glucose value >125 mg/dL indicates that they may have diabetes and this should be confirmed with a follow-up test. Performed By: #### 7 600, 866, 899, 45087 #### [facility] [place] [address] Assistant Buyer: Des Martell MD Potassium [Moles/Vol] 4.9 mmol/L Normal 3.5-5.[address] [facility] Comment on above: Performed By: #### 7 600, 866, 899, 90667 #### [facility] [place] [address] Assistant Buyer: Des Martell MD Protein [Mass/Vol] 6.6 g/dL Normal 6.1-8.1 [facility] Comment on above: Performed By: #### 7 600, 866, 899, 12825 #### [facility] [place] [address] Assistant Buyer: Des Martell MD Sodium [Moles/Vol] 136 mmol/L Normal 135-146 [facility] Comment on above: Performed By: #### 7 600, 866, 899, 16029 #### [facility] [place] [address] Assistant Buyer: Des Martell MD Urea nitrogen [Mass/Vol] 29 mg/dL High 7- [facility] Comment on above: Performed By: #### 7 600, 866, 899, 86721 #### [facility] [address], [address] [place] [address] Assistant Buyer: Des Martell MD Urea nitrogen/Creatinine [Mass ratio] 15 mg/mg Normal 6-22 [facility] Comment on above: Performed By: #### 7 600, 866, 899, 20109 #### [facility] [place] [address] Assistant Buyer: Des Martell MD LIPID PANEL, [facility] 01-25 Cholesterol [Mass/Vol] 185 mg/dL Normal <200 Qu est Diagnostics Comment on above: Order Comment: FASTI NG:YES PATIENT UNABLE TO VOID; ADVISED TO RETURN FOR COLLECTION. FASTING: YES Performed By: #### 7 600, 866, 899, 37759 #### [facility] [place] [address] Assistant Buyer: Des Martell MD Cholesterol in HDL [Mass/Vol] 55 mg/dL Normal > OR = 40 [facility] Comment on above: Order Comment: FASTI NG:YES PATIENT UNABLE TO VOID; ADVISED TO RETURN FOR COLLECTION. FASTING: YES Performed By: #### 7 600, 866, 899, 03339 #### [facility] [address], [address] [place] [address] Assistant Buyer: Des Martell MD Cholesterol in LDL [Mass/Vol] [...] LDL-C. Sanchez ZELAYA et al. MARIELOS. 2013;310(19): 7470-7377 (http://education.Wellfount.Naurex/faq/WOY103) Performed By: #### 7 600, 866, 899, 17769 #### [facility] [address], [address] [place] [address] Assistant Buyer: Des Martell MD Cholesterol.total/Yanely sterol in HDL [Mass ratio] 3.4 {ratio} Normal <5.0 [facility] Comment on above: Order Comment: FASTI NG:YES PATIENT UNABLE TO VOID; ADVISED TO RETURN FOR COLLECTION. FASTING: YES Performed By: #### 7 600, 866, 899, 57700 #### [facility] [address], [address] [place] [address] Assistant Buyer: Des Martell MD NON HDL CHOLESTEROL 130 [...] Performed By: #### 7 600, 866, 899, 55868 #### [facility] [address], [address] [place] [address] Assistant Buyer: Des Martell MD Triglyceride [Mass/Vol] 167 mg/dL High <150 Q u[facility] Comment on above: Order Comment: FASTI NG:YES PATIENT UNABLE TO VOID; ADVISED TO RETURN FOR COLLECTION. FASTING: YES Performed By: #### 7 600, 866, 899, 79091 #### [facility] [address], [address] [place] [address] Assistant Buyer: Des Martell MD T4, FREEon 02-21-2021 Free T4 [Mass/Vol] 1.2 ng/dL Normal 0.8-1.8 [facility] Comment on above: Performed By: #### 7 600, 866, 899, 78164 #### [facility] [address], [address] [place] [address] Assistant Buyer: Des Martell MD TSHon 02-21-2021 TSH Qn 8.27 m[IU]/L High 0.40-4.50 [facility] Comment on above: Performed By: #### 7 600, 866, 899, 53853 #### [facility] [address], [address] [place] [address] Assistant Buyer: Des Martell MD [facility] CARDIAC STRESS/REST INJE CTIONon 01-09-2021 [facility] CARDIAC STRESS/REST INJECTION Patient Name: RACHEL HOLLINGSWORTH STUDY: MYOCARDIAL PERFUSION STRESS TEST WITH LEXISCAN Performing facility: [facility], [address] [place] [address], [address] Provider: Felice Lyons MD, [facility] PCP: Dr. Beatriz Nino Supervising provider: Felice Lyons MD, FACC INDICATION: CAD; a-flutter HISTORY: Gender: M; Age: 85 y/o ; Height: 175.26 cm; Weight: 865.2173141 kg. CAD; Diabetes; High Cholesterol; HTN; Arrhythmias; Hx stroke Quit smoking. Cardiac catheterization 2002, 2005, 2008, 2012, 2014. PTCA: MVPCI. COMPARISON: Previous nuclear testing completed 2012 at [facility]. ACCESSION NUMBER(S): [id number]; [id number]; [id number] ORDERING CLINICIAN: FELICE LYONS TECHNIQUE: TWO DAY protocol. Stress injection: Date:01/09/21, [...] available for comparison. Electronically signed by: FELICE LYONS MD Normal [facility] ALT (SGPT)on 08-13-2018 ALT enzyme act/vol 24 U/L Normal 10-52 [facility] Comment on above: Performed By: #### 1 [id number] #### [facility] [address] [place] [address] AST (SGOT)on 08-13-2018 AST enzyme act/vol 25 U/L Normal 13-39 [facility] Comment on above: Performed By: #### 1 [id number] #### [facility] [address] [place] [address] CBCon 08-13-2018 Erythrocyte distribution width Ratio (RBC) 13.7 % Normal 12.0-15.4 [facility] Comment on above: Performed By: #### 2 [id number] #### [facility] [address] [place] [address] Hematocrit Volume Fraction (Bld) 40.2 % Normal 38.4-54.9 [facility] Comment on above: Performed By: #### 2 [id number] #### [facility] [address] [place] [address] Hemoglobin mass conc (Bld) 13.1 g/dL Normal 12.8-17.7 [facility] Comment on above: Performed By: #### 2 [id number] #### [facility] [address] [place] [address]84 MCH Entitic mass (RBC) 29.8 pg Normal 27.5-32.9 [facility] Comment on above: Performed By: #### 2 [id number] #### [facility] [address] [place] [address] MCHC mass conc (RBC) 32.6 g/dL Normal 30.5-35.4 [facility] Comment on above: Performed By: #### 2 [id number] #### [facility] [address] [place] [address] MCV Entitic volume (RBC) 91.4 fL Normal 83.3-98.2 [facility] Comment on above: Performed By: #### 2 [id number] #### [facility] [address] [place] [address] NRBC Absolute 0.00 10*3/uL Normal [facility] Comment on above: Performed By: #### 2 [id number] #### [facility] [address] [place] [address] NRBC Automated 0.0 /100{WBCs} Normal [facility] Comment on above: Performed By: #### 2 [id number] #### [facility] [address] [place] [address] Platelet mean volume Entitic volume (Bld) 9.9 fL Normal 9.9-12.1 [facility] Comment on above: Performed By: #### 2 [id number] #### [facility] [address] [place] [address] Platelets #/vol (Bld) 216 10*3/uL Normal 155-404 [facility] Comment on above: Performed By: #### 2 [id number] #### [facility] [address] [place] [address] RBC #/vol (Bld) 4.40 10*6/uL Normal 4.08-6.37 [facility] Comment on above: Performed By: #### 2 [id number] #### [facility] [address] [place] [address] RDW SD 45.8 fL Normal 39.3-48.6 [facility] Comment on above: Performed By: #### 2 302781 #### [facility] [address] [place] [address] WBC #/vol (Bld) 8.3 10*3/uL Normal 4.2-11.0 [facility] Comment on above: Performed By: #### 2 [id number] #### [facility] [address] [place] [address] Creatinineon 08-13-2018 Creatinine mass conc 1.23 mg/dL Normal 0.50-1.30 [facility] Comment on above: Performed By: #### 1 [id number] #### [facility] [address] [place] [address] GFR/1.73 sq M.predicted MDRD vol rate/area 56 mL/min/{1.73_m2} Normal [facility] Comment on above: Result Comment: Inte rpretation for Chronic Kidney Disease: Stages 1&2 >60 Healthy or potential kidney damage. Mild decrease of GFR. Stage 3 30-59 Moderate decrease of GFR. Stage 4 15-29 Severe decrease of GFR. Stage 5 <15 Kidney failure or on dialysis. Performed By: #### 1 [id number] #### [facility] [address] [place] [address] Electrolyte Panelon 08-14-19 19 Anion gap molar conc 15 mmol/L Normal 10-20 [facility] Comment on above: Performed By: #### 1 [id number] #### [facility] [address] [place] [address] Chloride molar conc 95 mmol/L Low 98-107 [facility] Comment on above: Performed By: #### 1 [id number] #### [facility] [address] [place] [address] HCO3 molar conc (Bld) 25 mmol/L Normal 21-32 [facility] Comment on above: Performed By: #### 1 [id number] #### [facility] [address] [place] [address] Potassium molar conc 4.6 mmol/L Normal 3.5-5.1 [facility] Comment on above: Performed By: #### 1 [id number] #### [facility] [address] [place] [address] Sodium molar conc 130 mmol/L Low 136-145 [facility] Comment on above: Performed By: #### 1 [id number] #### [facility] [address] [place] [address] Lipid Panelon 08-13-2018 Cholesterol in HDL mass conc 41 mg/dL Normal [facility] Comment on above: Result Comment: Norm al Mod Risk High Risk 5-9 >48 42-48 <42 10-14 >45 40-45 <40 15-19 >38 34-38 <34 Adult >39 Performed By: #### 1 [id number] #### [facility] [address] [place] [address] Cholesterol in LDL mass conc 77 mg/dL Normal <130 [facility] Comment on above: Performed By: #### 1 [id number] #### [facility] [address] [place] [address] Cholesterol in VLDL mass conc 43 mg/dL Abnormal <30 [facility] Comment on above: Performed By: #### 1 [id number] #### [facility] [address] [place] [address] Cholesterol mass conc 161 mg/dL Normal <200 [facility] Comment on above: Performed By: #### 1 [id number] #### [facility] [address] [place] [address] Cholesterol.total/Yanely sterol in HDL mass ratio 3.9 {ratio} Normal [facility] Comment on above: Performed By: #### 1 [id number] #### [facility] [address] [place] [address] Triglyceride mass conc 216 mg/dL Abnormal <150 [facility] Comment on above: Result Comment: 150- 199 Borderline High 200-499 High >500 Very High Performed By: #### 1 [id number] #### [facility] [address] [place] [address] Urea Nitrogenon 08-13-2018 Urea nitrogen mass conc 21 mg/dL Normal 6-23 [facility] Comment on above: Performed By: #### 1 [id number] #### [facility] [address] [place] [address] Vital Signs Date Time Vital Sign Value Performing Clinician Facility 10-31-2023 11:51-0400 Diastolic blood pressure 64 mm[Hg] PHYSICIAN NO [facility] 10-31-2023 11:51-0400 Heart rate 64 /min PHYSICIAN NO [facility] 10-31-2023 11:51-0400 Respiratory rate 22 /min PHYSICIAN NO [facility] 10-31-2023 11:51-0400 SaO2% (BldA) [Mass fraction] 98 % PHYSICIAN NO [facility] 10-31-2023 11:51-0400 Systolic blood pressure 138 mm[Hg] PHYSICIAN NO [facility] 10-31-2023 07:45-0400 Body temperature 97.7 [degF] PHYSICIAN NO [facility] 10-31-2023 06:00-0400 Body weight 94 kg PHYSICIAN NO [facility] 10-31-2023 00:00-0400 Inhaled oxygen flow rate 2 L/min PHYSICIAN NO [facility] 10-28-2023 16:09-0400 Body height 175.26 cm PHYSICIAN NO [facility] 10-28-2023 12:21-0400 Inhaled oxygen concentration 50 % PHYSICIAN NO [facility] 09-18-2021 14:41-0400 Body height 175.26 cm Nikhil Villareal [employer] Work Phone: [facility] 250 DO Work Phone: 09-18-2021 14:41-0400 Body mass index (BMI) [Ratio] 32.93 kg/m2 Nikhil Villareal [employer] Work Phone: [facility] 250 DO Work Phone: 09-18-2021 14:41-0400 Body surface area Derived from formula 2.16 m2 Nikhil G [employer] Work Phone: [facility] [employer] 250 DO Work Phone: 09-18-2021 14:41-0400 Body weight 101.15 kg Nikhil G Furlong Work Phone: [facility] 250 DO Work Phone: 09-18-2021 14:41-0400 Diastolic blood pressure 60 mm[Hg] Nikhil G Furlong Work Phone: [facility] 250 DO Work Phone: 09-18-2021 14:41-0400 Heart rate 63 /min Nikhil Villareal Furlong Work Phone: [facility] 250 DO Work Phone: 09-18-2021 14:41-0400 Systolic blood pressure 138 mm[Hg] Nikhil G Furlong Work Phone: [facility] 250 DO Work Phone: 03-20-2021 13:52-0400 Body height 175.26 cm Nikhil Villareal Furlong Work Phone: [facility] 250 DO Work Phone: 03-20-2021 13:52-0400 Body mass index (BMI) [Ratio] 34.41 kg/m2 Nikhil G Furlong Work Phone: [facility] 250 DO Work Phone: 03-20-2021 13:52-0400 Body surface area Derived from formula 2.2 m2 Nikhil Villareal Furlong Work Phone: [facility] 250 DO Work Phone: 03-20-2021 13:52-0400 Body weight 105.69 kg Nikhil Villareal Furlong Work Phone: [facility] 250 DO Work Phone: 03-20-2021 13:52-0400 Diastolic blood pressure 62 mm[Hg] Nikhil G Furlong Work Phone: [facility] 250 DO Work Phone: 03-20-2021 13:52-0400 Heart rate 67 /min Nikhil Villareal Sharonasternorma Work Phone: [facility] 250 DO Work Phone: 03-20-2021 13:52-0400 Systolic blood pressure 130 mm[Hg] Nikhil Nino Work Phone: [facility] 250 DO Work Phone: Encounters Encounter Date Encounter Type Care Provider Facility Start: 10-27-2023 Non-patient / Non-visit PHYSICIAN NO [facility] Work Phone: Start: 10-24-2023 Non-patient / Non-visit PHYSICIAN NO [facility] Work Phone: Start: 10-20-2023 Non-patient / Non-visit PHYSICIAN NO [facility] Work Phone: Start: 10-20-2023 Non-patient / Non-visit PHYSICIAN NO [facility] Work Phone: Start: 10-20-2023 End: 10-31-2023 Evaluation and management of inpatient PHYSICIAN NO [facility] Work Phone: Start: 09-03-2023 End: 09-03-2023 ambulatory [facility] Start: 06-06-2023 End: 06-06-2023 ambulatory Felice Lyons Facility:[facility] Start: 05-05-2022 End: 05-08-2022 Evaluation and management of inpatient DR JIAN ZHOU Facility:[facility]1 Start: 05-01-2022 End: 05-02-2022 ambulatory BROCK SAMUELS Facility:[facility] Start: 04-16-[address] Felice Lyons Facility: Start: 04-08-[address] NIKHIL NINO Fac ility:[facility] Start: 03-19-2022 End: 03-20-[address] NIKHIL NINO Facility:[facility] Start: 01-03-2022 End: 01-04-[address] NIKHIL NINO Facility:[facility] Start: 11-29-2021 End: 11-30-[address] NIKHIL NINO Facility:[facility] Start: 11-27-2021 End: 11-27-[address] STEVO DAVID Facility:[facility] Start: 11-17-2021 End: 11-19-2021 Evaluation and management of inpatient DR SHOLA LYNN Facility:[facility]1 Start: 11-02-2021 Chart Update Nikhil green Work Phone: [facility] 250 DO Work Phone: Start: 11-02-2021 End: 11-03-2021 ambulatory [facility] Facility:[facility]1 Start: 11-02-2021 End: 11-03-2021 ambulatory МАРИНА DAVIS Facility:[facility]1 Start: 10-11-2021 End: 10-12-2021 ambulatory [facility] Facility:[facility]1 Start: 09-25-2021 Patient encounter procedure Nikhil Nino Work Phone: [facility] 250 DO Work Phone: Start: 09-18-2021 Office outpatient visit 25 minutes Nikhil Nino Work Phone: [facility] 250 DO Work Phone: Start: 09-18-2021 ambulatory Nikhil Nino Facility:[id number] Start: 09-13-2021 End: 09-14-2021 ambulatory VELASCO Enzo JUSTIN Facility:[facility]1 Start: 09-05-2021 End: 09-06-2021 ambulatory VELASCO O CLOUGHERTY Facility:[facility]1 Start: 09-05-2021 End: 09-06-2021 ambulatory DMITRIY STEELE Facility:[facility]1 Start: 08-27-2021 Rx Renewal Nikhil Cook ng Work Phone: [facility] 250 DO Work Phone: Start: 08-06-2021 End: [...] Chart Update Nikhil Cook ng Work Phone: [facility] 600 DO Work Phone: Start: 04-23-2021 Patient encounter procedure Nikhil Nino Work Phone: [facility] [place] Work Phone: Start: 03-20-2021 Patient encounter procedure Nikhil Nino Work Phone: [facility] 250 DO Work Phone: Start: 08-13-2018 Patient encounter procedure FELICE LYONS Facility:[id number] Start: 09-23-2017 Patient encounter procedure FELICE LYONS Facility:[id number] Procedures Date Procedure Procedure Detail Performing Clinician Start: 10-27-2023 Plain chest X-ray PHYSI CLAYTON NO FAMILY Start: 10-24-2023 End: 10-24-2023 Plain chest X-ray PHYSICIAN NO FAMILY Start: 10-23-2023 Antibody screen Felice Lyons Comment on above: Order Comment: FOX WILDER TRIED Result Comment: PERF ORMED BY: [facility] [address] [place] [address] PATHOLOGIST SUBSTATION MAINTENANCE TECHNICIAN KARINA JOYNER M.D. Start: 10-23-2023 Screening for occult blood in feces PHYSICIAN NO FAMILY Start: 10-23-2023 Plain chest X-ray PHYSI CLAYTON NO FAMILY Start: 10-22-2023 Plain chest X-ray PHYSI CLAYTON NO FAMILY Start: 10-21-2023 Ultrasonography of bilateral kidneys PHYSICIAN NO FAMILY Start: 09-03-2023 Aspartate aminotrans ferase [Enzymatic activity/volume] in Serum or Plasma FELICE LYONS Start: 09-03-2023 Basic metabolic 2000 panel - Serum or Plasma FELICE LYONS Start: 09-03-2023 Lipid panel FELICE BUSBY AHIM Start: 09-03-2023 Thyrotropin [Units/v olume] in Serum or Plasma FELICE LYONS Start: 09-03-2023 ECG 12-LEAD RODAS ROLO AHIM Start: 05-26-2004 Total colonoscopy Wyatt Cookng Work Phone: Coronary artery bypa ss graft Nikhil Herreralong Work Phone: Elbow joint operations Wyatt s Mono Herreralong Work Phone: Hemorrhoidectomy Nikhil Nieto rlong Work Phone: History of coronary artery bypass grafting History of coronary artery bypass graft Nikhil Herreralong Work Phone: 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 Nikhil Herreralong Work Phone: Operative procedure on foot Nikhil Herreralong Work Phone: Percutaneous translu surendra coronary angioplasty Nikhil Herreralong Work Phone: Repair of musculoten dinous cuff of shoulder Nikhil Herreralong Work Phone: Small intestine excision Ed Herreralong Work Phone: Plan of Treatment Date Care Activity Detail Author Start: 10-31-2023 [facility] Start: 10-24-2023 Referral to welder fitter [facility] Start: 10-20-2023 Referral to contracts representative [facility] Start: 10-20-2023 [facility] Start: 10-20-2023 Hospital admission [facility] Start: 04-16-2022 FUV, Provider: Felice Lyons, Status: Pen, Time: 11:20 AM FUV, Provider: Felice Lyons, Status: Pen, Time: 11:20 AM [facility] Work Phone: Start: 09-18-2021 FUV, Provider: Felice Lyons, Status: Pen, Time: 2:30 PM FUV, Provider: Felice Lyons, Status: Pen, Time: 2:30 PM [facility] 250 DO Work Phone: Patient Education Heart Failure, Adult (DC) [facility] Work Phone: Patient referral [facility] Work Phone: Immunizations Immunization Date Immunization Notes Care Provider Steve horton 08-29-2020 Pfizer-BioNTech COVI D-19 Vacc 30 MCG/0.3ML Intramuscular Suspension Nikhil Villareal Furlong Work Phone: [place] [address] DO Work Phone: 08-08-2020 Pfizer-BioNTech COVI D-19 Vacc 30 MCG/0.3ML Intramuscular Suspension Nikhil Villareal Furlong Work Phone: [place] [address] DO Work Phone: 12-30-2019 influenza, seasonal, injectable Nikhil G Furlong Work Phone: [place] [address] DO Work Phone: 12-30-2019 pneumococcal conjuga te vaccine, 13 valent Nikhil G Furlong Work Phone: [place] [address] DO Work Phone: 02-23-2019 influenza, seasonal, injectable Nikhil G Furlong Work Phone: [place] [address] DO Work Phone: 06-06-2017 Influenza, injectabl e, Madin [place] Canine Kidney, preservative free, quadrivalent Nikhil G Furlong Work Phone: [place] [address] DO Work Phone: 03-19-2017 influenza virus vacc ine, unspecified formulation Nikhil G Furlong Work Phone: [place] [address] DO Work Phone: 05-10-2016 influenza, seasonal, injectable, preservative free Nikhil G Furlong Work Phone: [place] [address] DO Work Phone: 03-26-2016 influenza, injectabl e, quadrivalent, preservative free Nikhil G Sharonlong Work Phone: [place] [address] DO Work Phone: 01-25-2016 influenza virus vacc ine, unspecified formulation Nikhil G Sharonng Work Phone: [place] [address] DO Work Phone: 05-16-2015 influenza virus vacc ine, unspecified formulation Nikhil G Sharonng Work Phone: [place] [address] DO Work Phone: 02-23-2015 pneumococcal polysaccharide vaccine, 23 valent Nikhil Villareal [employer] Work Phone: [facility] 02-23-2015 seasonal influenza, intradermal, preservative free Nikhil G Sharonlong Work Phone: [place] [address] DO Work Phone: 03-26-2014 influenza virus vacc ine, unspecified formulation Nikhil G Sharonlong Work Phone: [place] [address] DO Work Phone: 03-18-2014 influenza virus vacc ine, unspecified formulation Nikhil G [employer] Work Phone: [facility] 250 DO Work Phone: 03-18-2014 pneumococcal conjuga te vaccine, 13 valent [facility] Work Phone: [place] [address] DO Work Phone: 03-18-2014 pneumococcal polysaccharide vaccine, 23 valent Nikhil Herrerang Work Phone: [place] [address] DO Work Phone: 05-02-2005 pneumococcal polysaccharide vaccine, 23 valent Nikhil Villareal [facility] Work Phone: [place] [address] DO Work Phone: influenza virus vacc ine, unspecified formulation Nikhil Herrerang Work Phone: [place] [address] DO Work Phone: Comment on above: 2009 pneumococcal polysaccharide vaccine, 23 valent Nikhil Villareal [facility] Work Phone: [place] [address] DO Work Phone: Comment on above: 2008 Payers Date Payer Category Payer Self-pay [id number] 2002 Medicare [id number] 1959 Medicare [id number] 1935 Unknown [id number] 2.16.8 40.1.048090.3.579.2.355 1937 Unknown [id number] 2.16.8 40.1.670045.3.579.2.355 1937 Unknown [id number] 2.16. 840.1.933208.3.579.2.356 1937 Unknown [id number] 2.16. 840.1.881834.3.579.2.356 1937 Unknown [id number] 2.16.84 0.1.538141.3.579.2.593 1937 Unknown [id number] 2.16.84 0.1.137543.3.579.2.593 1937 Unknown [id number] 2.16.84 0.1.051733.3.579.2.593 1937 Unknown [id number] 2.16.84 0.1.590561.3.579.2.593 1937 Unknown [id number] 2.16.84 0.1.324042.3.579.2.593 1937 Unknown [id number] 2.16.84 0.1.161959.3.579.2.593 1937 Unknown [id number] 2.16.84 0.1.307427.3.579.2.593 1937 Unknown [id number] 2.16.84 0.1.159680.3.579.2.593 1937 Unknown [id number] 2.16.84 0.1.198371.3.579.2.593 1937 Unknown [id number] 2.16.84 0.1.905944.3.579.2.593 1937 Unknown [id number] 2.16.84 0.1.756490.3.579.2.593 1937 Unknown [id number] 2.16.84 0.1.272812.3.579.2.593 1937 Unknown [id number] 2.16.84 0.1.555898.3.579.2.593 1937 Unknown [id number] 2.16.84 0.1.895199.3.579.2.593 1937 Unknown [id number] 2.16.84 0.1.495020.3.579.2.593 1937 Unknown [id number] 2.16.84 0.1.558069.3.579.2.593 1937 Unknown [id number] 2.16.84 0.1.102493.3.579.2.593 1937 Unknown [id number] 2.16.84 0.1.864144.3.579.2.593 1937 Unknown [id number] 2.16.84 0.1.629660.3.579.2.593 1937 Unknown [id number] 2.16.84 0.1.231901.3.579.2.593 1937 Unknown [id number] 2.16.84 0.1.045203.3.579.2.593 1937 Unknown [id number] 2.16.8 40.1.313225.3.579.2.1244 Medicare [id number] Unknown [id number] Unknown MEDICARE Unknown Insurance No Card [id number] Unknown [place] [id number] Unknown [id number] 2.16.8 40.1.229557.3.579.2.531 Unknown [id number] 2.16.8 40.1.965957.3.579.2.531 Social History Date Type Detail Facility No alcohol use No alcohol use [facility] DO Work Phone: Comment on above: coffee daily; quit 1964; Start: 10-24-2023 [facility] Start: 1935 Sex Assigned At Male [facility] Goals Date Patient Goal Desired Activity /State Functional Status Date Assessment Result Facility 10-31-2023 Functional status Patient at Baseline [facility] Work Phone: Mental Status Date Assessment Result Facility 10-31-2023 Cognitive function Cognitive Sta tus Patient at Baseline [facility] Work Phone: Clinical Notes 10-20-2023 to 10-31-2023 Note Date & Type Note Facility 10-31-2023 Discharge summary Note Date/Time October 31, 2023 12:59pm [facility] [address] [place] [address] Discharge Summary Signed Patient: Rachel Hollingsworth SR MR#: [id number] : 1935 Acct:[id number] Age/Sex: 88 / M Adm Date: 4 Loc: Room: [address] [place] [address]: Francia Kirby MD Copies to: Francia Kirby MD NO FAMILY PHYSICIAN~ Providers Date of Discharge: 10/31/23 Discharging Provider: Francia Kirby Primary Care Provider: PHYSICIAN NO FAMILY Consults: 10/20/23 12:08 Consult to Cardiology Routine Comment: Dr. Victor relocation director Consulting Provider: [facility] Reason For Exam: NSTMI Has Provider Been Notified: Yes Date of Notification: 10/20/23 Time of Notification: 14:09 Consult to Nephrology Routine Comment: Consulting Provider: Scott Delgado Has Provider Been Notified: Yes Date of Notification: 10/20/23 Time of Notification: 14:06 Reason for Consult: Renal Failure 10/21/23 07:40 Consult to Speech Therapy Routine Comment: Reason for ST Consult: Bedside Swallow Eval & Tx Diet per ST Recommendations: Yes Modified Barium Swallow Study, If Recommended: Yes 10/22/23 10:30 OT [Consult to Occupational Therapy] Routine Comment: Physician Instructions: Consult to OT for:: Evaluation and Treat PT [Consult to Physical Therapy] Routine Comment: Physician Instructions: Consult to PT for:: Evaluation and Treat 10/24/23 08:28 Consult to Gastroenterology Routine Comment: 4t UC notified gastroenterology for consult Consulting Provider: [facility] - Gastroenterology Reason For Exam: anemia, postive stool for blood Has Provider Been Notified: Yes Date of Notification: 10/24/23 Time of Notification: 08:38 Discharge Diagnosis (1) NSTEMI (non-ST elevated myocardial infarction): (2) Acute kidney injury superimposed on CKD: (3) Paroxysmal atrial fibrillation: (4) Hypothyroid: (5) Diabetes: (6) Hyperlipidemia: (7) Systolic heart failure: (8) Anemia: Final Diagnosis Final Discharge Diagnosis: as above Summary Hospital Course Hospital course: Patient is a 88-year-old gentleman with past medical history of hypertension, paroxysmal atrial fibrillation on Eliquis, hyperlipidemia, coronary artery disease status post CABG in 2003, hypothyroidism, anemia of chronic kidney disease, BPH, insulin requiring diabetes mellitus, gastroesophageal reflux disorder came to the [facility] ER at midnight with mid epigastric pain which did not relieved with aspirin. Patient is a poor historian and on top he did not sleep well in the ER last night. He was falling asleep as I was talking to him here in 4P. Patient stated that he has been having intermittent chest pain for last 7 days which usually gets relieved with aspirin. He had some lightheadedness last night but no diaphoresis. He did not pass out. He lives with her granddaughter who is a nurse called 911 and patient was taken to the [facility] emergency department. As per ER report he had troponin 200+, chest x-ray shows pulmonary vascular congestion, he had elevated kidney functions and low H&H. Patient did receive 1 units of PRBC in the emergency department there. He denies any black tarry stool. However he tells me that due to his iron pills sometimes his stool looks dark to him. He denies any [id number] NSAIDs. At this moment patient does not have any further chest pain he seems rafael tired and wants to sleep. Patient stated that he was once told about sleep apnea diagnosis but he does not use currently any CPAP. I have reviewed his chart in [facility] EHR, there is no recent echocardiogram report. He had a BNP done in May 2023; at that time GFR was 29 with creatinine 2.15 Assessment/Plan (1) NSTEMI (non-ST elevated myocardial infarction): (2) CAD (coronary artery disease): (3) CKD (chronic kidney disease) stage 3, GFR 30-59 ml/min: Plan: LILIANA on CKD 4 (4) Diabetes: (5) Anemia in CKD (chronic kidney disease): (6) Hypertension: (7) Hypothyroid: (8) GERD (gastroesophageal reflux disease): Plan Non-STEMI Acute diastolic CHF Seen and examined Feeling better No SOB on room air Saturation 93% Kidney function is improving Nephrology is following Discussed with nephrology Hemoglobin and hematocrit are stable Cardiology is following No plan for invasive cardiac work at this time Cardiorenal LILIANA Urinary Retention S/p Tenorio cath Nephrology is following Kidney function is improving Cr is down to 3.07 BMP daily Acute hypoxic respiratory failure due to acute diastolic CHF On NC at 3 liter per min DC Lasix infusion BMP in am Possible upper GI bleeding S/p RBC transfusion Eliquis on hold H/H are stable Protonix PO daily H/H in am GI consulted- No plan for scopes at this time Hypertension: Hold valsartan and continue with Norvasc Hyperlipidemia: Continue with Lipitor daily Diabetes type2: Insulin sliding scale/Jardiance Morbid obese: Lifestyle modification DC planning: SNF Condition Condition at Discharge: Stable Status at Discharge Cognitive/behavioral status at discharge: oriented x3 Time Spent with Patient Time spent providing/coordinating discharge services (# min): 38 Discharge Plan Discharge Plan Patient Disposition: [facility] Facility Activity: No Activity Restriction Diet: Diabetic and Low-Sodium Comment: See speech therapy recommendations in discharge packet Additional Instructions: SNF to manage: -PT/OT to eval and treat -Monitor VS per protocol -Fall precautions -Perform cardiovascular and genitourinary assessments -Monitor intake and output -Daily weight -Provide CHF education -Routine skin care and assessments -See speech therapy recommendations in discharge packet -Monitor FSBS ACHS -GI recs: No NSAIDS -Monitor for signs of bleeding -Maintain and perform routine care to tenorio catheter-- placed on 10/27/23-- keep in until seen by urology -Care to be managed by SNF providers. Instructions: Heart Failure, Adult (DC) Prescriptions: New torsemide 20 mg Tablet 40 mg PO DAILY@0800 30 Days Qty: 30 6RF hydralazine 25 mg Tablet 25 mg PO BID 30 Days Qty: 60 12RF isosorbide mononitrate 120 mg Tablet Extended Release 24 Hr 120 mg PO DAILY.6A 30 Days Qty: 30 12RF pantoprazole 40 mg Tablet,Delayed Release (Dr/Ec) 40 mg PO BID Qty: 60 0RF Continued acetaminophen 500 mg Tablet 1,000 mg PO QHS fluoxetine 10 mg Capsule 10 mg PO DAILY nitroglycerin 0.4 mg Tablet, Sublingual 0.4 mg SUBLINGUAL Q5-15M PRN (Reason: Chest Pain) cholecalciferol (vitamin D3) [Vitamin D3] 125 mcg (5,000 unit) Tablet 125 mcg PO DAILY amiodarone 200 mg Tablet 200 mg PO DAILY finasteride 5 mg Tablet 5 mg PO QHS amlodipine 5 mg Tablet 5 mg PO DAILY tamsulosin 0.4 mg Capsule 0.4 mg PO DAILY insulin aspart U-100 [Novolog FlexPen U-100 Insulin] 100 unit/mL (3 mL) Insulin Pen 0 units subcut ACHS Qty: 0 0RF pantoprazole 40 mg Tablet,Delayed Release (Dr/Ec) 40 mg PO DAILY.AC.BKFAST Qty: 30 0RF atorvastatin 80 mg tablet 80 mg PO DAILY clopidogrel 75 mg tablet 75 mg PO DAILY insulin glargine-yfgn 100 unit/mL (3 mL) insulin pen 30 unit subcut BID carvedilol 25 mg tablet 25 mg PO BID.PC.BKFAST.SUPPER levothyroxine 75 mcg tablet 125 mcg PO DAILY.30 Discontinued Eliquis 2.5 mg Tablet 2.5 mg PO BID Invokana 100 mg Tablet 100 mg PO DAILY valsartan 80 mg Tablet 40 mg PO DAILY Hold Instructions: Continue to hold until PCP eval. May resume for SBP consistently > 150 isosorbide mononitrate 30 mg Tablet Extended Release 24 Hr 60 mg PO DAILY bumetanide 1 mg tablet 1 mg PO BID Follow Up: [facility] [Outside] (The office is aware of your need for a follow-up appointment. The office will review your information. Then, they will either contact you or the facility you are at to arrange a follow-up appointment. If you have any questions, please call the office. ) Felice Lyons MD [Active Staff] - 11/24/23 3:20 pm Scott Delgado MD [Active Staff] - (The office is currently closed. Please call the office on Friday for a follow-up appointment. ) Exam Physical Exam Vital Signs: Temp Pulse Resp BP Pulse Ox O2 Del Method O2 Flow Rate 97.7 F 64 22 138/64 98 Room Air 2 10/31/23 07:45 10/31/23 11:51 10/31/23 11:51 10/31/23 11:51 10/31/23 11:51 10/31/23 11:51 10/31/23 00:00 FiO2 50 10/28/23 12:21 Narrative: General patient laying in bed in no acute distress alert awake oriented x3 HEENT PERRLA Neck supple no JVD no carotid bruit CVS S1-S2 regular rate and rhythm no murmur no gallop Chest clear to auscultation percussion Abdomen soft bowel sounds normoactive no rebound no guarding Extremities no stenosis no clubbing no edema Musculoskeletal exam normal no joint effusion Neurologic exam oriented x3 alert awake no focal left Psychiatry: Normal insight and judgment Skin: no rash or lesions Diagnostic Studies Completed and Pending Studies Labs on day of discharge: 10/31/23 11:49: POC Glucose 298, POC Glucose Comment Glu2: cleaned meter 10/31/23 07:29: POC Glucose 248, POC Glucose Comment Glu2: cleaned meter 10/31/23 05:30: PHA Creatinine Clear 20.55, Sodium 136, Potassium 4.3, Chloride 96 L, Carbon Dioxide 31.5 H, Anion Gap 12.8, BUN 78 H, Creatinine 2.92 H, Est GFR (CKD-EPI) 20.259, Glucose 251 H, Calcium 8.7 10/30/23 20:23: POC Glucose 228, POC Glucose Comment Glu2: cleaned meter 10/30/23 17:02: POC Glucose 278, POC Glucose Comment Glu2: cleaned meter Documented By: Francia Kirby MD 10/31/23 1257 Signed By: <Electronically signed by Francia Kirby MD> 10/31/23 [facility] Work Phone: 1(337) 970-249606-07-2024 Progress note Author [facility] October 31, 2023 12:06pm Note Date/Time October 31, 2023 12:06 pm [facility] [address] [place] [address] Cardiology Progress Note Signed Patient: Rachel Hollingsworth MR#: [id number] : 1935 Acct:[id number] Age/Sex: 88 / M Adm Date: 4 Loc: Room: [address] [place] [address] Type: ADM IN Attending Dr: Francia Kirby MD Copies to: ~ Date of Service: 10/31/2023 Subjective Principal diagnosis: Chest pain/angina/CHF Interval history: Patient is resting comfortably in bed in flat position with no dyspnea on nasal cannula oxygen. Vital signs are stable. No lower extremity edema. No fever. responding well to medical therapy and is no longer requiring IV Lasix but wouldlikely need oral supplements. Renal function is close to what it was yesterday Interim evaluation 10/31/2023: Cardiology covering for Dr. Chin: Stable from a cardiovascular standpoint, hemodynamics, labs, consult notes and last cardiovascular note reviewed. Patient interviewed and examined stable currentlyoff oxygen. Serum creatinine down to 2.92. CBC last measured on 10/29/2023 stable with hemoglobin 8.9 (will recheck CBC today). Anticoagulation currently on hold. Clopidogrel reinitiated for secondary prevention given non-ST elevation PR, PVD. As discussed with Dr. Chin, will continue to hold off on invasive evaluation given labile renal function, and preference to avoid hemodialysis. Exam Physical Exam Vital Signs: Temp Pulse Resp BP Pulse Ox O2 Del Method O2 Flow Rate 97.7 F 64 22 138/64 98 Room Air 2 10/31/23 07:45 10/31/23 11:51 10/31/23 11:51 10/31/23 11:51 10/31/23 11:51 10/31/23 11:51 10/31/23 00:00 FiO2 50 10/28/23 12:21 Const General: cooperative, comfortable and no acute distress Nutritional Appearance: overweight Orientation: alert, awake and oriented x3 HEENT Head: normal to inspection Eyes General: appearance normal, both eyes and all related structures Neck Neck: normal visual inspection Chest Chest palpation & inspection: normal inspection of the chest Resp Effort & Inspection: normal respiratory effort Auscultation: clear to auscultation bilaterally Cardio Palpation: normal PMI Rate: regular rate Rhythm: regular rhythm Heart Sounds: S1 normal and S2 normal GI Inspection: obesity Palpation: soft Skin General: no rashes or lesions noted Neuro General: patient alert, patient awake and patient oriented x3 Objective Labs 10/29/23 07:45 10/31/23 05:30 Labs: Laboratory Results - last 24 hr 10/30/23 10/30/23 10/31/23 17:02 20:23 05:30 PHA Creatinine Clear 20.55 Sodium 136 Potassium 4.3 Chloride 96 L Carbon Dioxide 31.5 H Anion Gap 12.8 BUN 78 H Creatinine 2.92 H Est GFR (CKD-EPI) 20.259 Glucose 251 H POC Glucose 278 228 POC Glucose Comment Glu2: cleaned meter Glu2: cleaned meter Calcium 8.7 10/31/23 07:29 PHA Creatinine Clear Sodium Potassium Chloride Carbon Dioxide Anion Gap BUN Creatinine Est GFR (CKD-EPI) Glucose POC Glucose 248 POC Glucose Comment Glu2: cleaned meter Calcium A&P - Cardiology (1) NSTEMI (non-ST elevated myocardial infarction): Assessment/Problem Details: Patient is currently with no angina. Plan: Continue nitrates, Plavix, beta-blockers and high intensity statin. No invasive workup per patient's request Code(s): I21.4 - Non-ST elevation (NSTEMI) myocardial infarction (2) Acute kidney injury superimposed on CKD: Assessment/Problem Details: Kidney function is in stage IV and nephrology is following Plan: Conservative therapy, patient has no desire for dialysis, avoid nephrotoxic medications, currently on IV Lasix drip Code(s): N17.9 - Acute kidney failure, unspecified; N18.9 - Chronic kidney disease, unspecified (3) Paroxysmal atrial fibrillation: Assessment/Problem Details: Currently in sinus rhythm on amiodarone Plan: Continue amiodarone 200 mg daily, no anticoagulation at the present time due to his risk of severe anemia Code(s): I48.0 - Paroxysmal atrial fibrillation (4) Hypothyroid: Assessment/Problem Details: On replacement therapy to be continued Plan: Continue thyroid supplements Code(s): E03.9 - Hypothyroidism, unspecified (5) Diabetes: Assessment/Problem Details: Presently stable Plan: Discontinue Jardiance due to advanced kidney disease Code(s): E11.9 - Type 2 diabetes mellitus without complications (6) Hyperlipidemia: Plan: Continue high intensity statin Code(s): E78.5 - Hyperlipidemia, unspecified (7) Systolic heart failure: Assessment/Problem Details: This is acute due to the non-ST elevation myocardial infarction EF 40-45% with severe inferior wall hypokinesis Plan: Continue current therapy Code(s): I50.20 - Unspecified systolic (congestive) heart failure (8) Anemia: Assessment/Problem Details: Status post blood transfusion with no active bleeding presently Qualifiers: Anemia type: other cause Other causes of anemia: other cause, not classified Qualified Code(s): D64.89 - Other specified anemias Plan: Avoid Eliquis but continue Plavix Code(s): D64.9 - Anemia, unspecified Documented By: Vj Hess DO 10/31/23 1202 Signed By: <Electronically signed by Vj Hess DO> 10/31/23 1206 [facility] Work Phone: 1(392) 189-935506-07-2024 Progress note Author Tom Rodriguezjihan [facility] October 31, 2023 10:59am Note Date/Time October 31, 2023 10:59 am [facility] [address] [place] [address] Nephrology Progress Note Signed Patient: Rachel Hollingsworth SR MR#: [id number] : 1935 Acct:[id number] Age/Sex: 88 / M Adm Date: 4 Loc: Room: [address] [place] [address] Type: ADM IN Attending Dr: Francia Kirby MD Copies to: ~ Date of Service: 10/31/2023 Subjective Subjective Narrative: This is a 88-year-old male with medical history of CAD s/p CABG in 2003, CKD, DM, HTN, HLD and A-fib presented to [facility] ER with chest pain. He had a EKG showed diffuse ST depression. He was found to have anemia with hemoglobin 8 g/dL. He also found to have abnormal renal function with elevated serum creatinine 3 mg/dL and BUN 65 mg/dL. His chest x-ray showed cardiomegaly with interstitial infiltrate possibly due to CHF versus a multifocal pneumonia. White cell count was normal so no antibiotics were given. He was given blood transfusion and was transferred to the [facility] for further care. Patient reported to have a longstanding insulin-dependent type 2 diabetes mellitus and currently takes insulin. He denies any history of diabetic retinopathy. He reported that that he stopped following with his PCP and has not been seen close to a year. Upon review of his records, it appears the patient has a longstanding CKD and his serum creatinine was 2.1 mg in May 2023. He denies any evaluation by the contracts representative in the past. Nephrology is consulted for LILIANA on CKD. Interval history: Patient was seen and examined in his room. Patient oxygenation has improved with diuresis. Currently on room air Diuretics has been on hold due to polyuria following Tenorio catheter placement. Patient made 2 L urine output. Continues to have Tenorio catheter Lab this morning revealed serum creatinine slightly better at 2.9 deciliter from3.0 mg deciliter yesterday, BUN is down to 78 mg deciliter and potassium 4.3 millimoles per liter Hemoglobin is better after 3 units of packed RBCs. Patient was evaluated by Angela because of no evidence of active GI bleeding and the high risk of the patient, PPI was maximized with no plan for EGD or colonoscopy at this point. Hemoglobin has been stable Cardiology also following the patient for non-ST PR and no plan for cardiac cathas per patient request Exam Physical Exam Vital Signs: Temp Pulse Resp BP Pulse Ox O2 Del Method O2 Flow Rate 97.7 F 68 16 131/62 90 L Room Air 2 10/31/23 07:45 10/31/23 07:45 10/31/23 07:45 10/31/23 07:45 10/31/23 07:45 10/31/23 07:46 10/31/23 00:00 FiO2 50 10/28/23 12:21 Narrative: General: No acute distress Head :atraumatic normocephalic Eyes: PERRLA. Neck: no JVD no bruit. Heart: S1-S2. RRR Respiratory: Bilateral lower lobes crackles Abdomen: Soft, positive bowel sounds,no tenderness. Neurology: Awake alert oriented x3. No focal deficits Extremity. No cyanosis. Trace edema of lower extremities Skin: No skin rash Objective Intake and Output I&O: Intake & Output 10/28/23 10/29/23 10/30/23 10/31/23 23:59 23:59 23:59 23:59 Intake Total 1300 / 1300 940 / 940 1250 / 1250 300 / 300 Output Total 5800 / 5800 4175 / 4175 2024 / 2024 1200 / 1200 Balance -4500 / -4500 -3235 / -3235 -775 / -775 -900 / -900 Weight 210 lb 8.663 oz 203 lb 11.314 oz 205 lb 4.006 oz 207 lb 3.752 oz Meds and Allergies Meds: Active Medications Acetaminophen (Acetaminophen 325 Mg Tablet) 650 mg PO Q6HR PRN PRN Reason: Pain Scale 1 - 3 or fever Stop: 10/19/24 11:04 Last Admin: 10/30/23 08:36 Dose: 650 mg Amiodarone HCl (Amiodarone 200 Mg Tablet) 200 mg PO DAILY [facility] Stop: 10/27/24 08:59 Last Admin: 10/31/23 08:13 Dose: 200 mg Atorvastatin Calcium (Atorvastatin 80 Mg Tablet) 80 mg PO DAILY [facility] Stop: 10/20/24 08:59 Last Admin: 10/31/23 08:13 Dose: 80 mg Carvedilol (Carvedilol 25 Mg Tablet) 25 mg PO BID.PC.BKFAST.SUPPER [facility] Stop: 10/21/24 17:59 Last Admin: 10/31/23 08:13 Dose: 25 mg Clopidogrel Bisulfate (Clopidogrel Bisulfate 75 Mg Tablet) 75 mg PO DAILY [facility] Stop: 10/27/24 08:59 Last Admin: 10/31/23 08:13 Dose: 75 mg Dextrose (Dextrose 50% In Water 25 Gm/50 Ml Syringe) 0 gm IV-PUSH PRN PRN PRN Reason: Hypoglycemia Stop: 10/19/24 12:08 Finasteride (Finasteride 5 Mg Tablet) 5 mg PO QHS [facility] Stop: 10/19/24 21:59 Last Admin: 10/30/23 20:59 Dose: 5 mg Fluoxetine HCl (Fluoxetine 10 Mg Capsule) 10 mg PO DAILY [facility] Stop: 10/20/24 08:59 Last Admin: 10/31/23 08:13 Dose: 10 mg Glucose (Dextrose 40% Gel 15 Gm Tube) 0 gm PO PRN PRN PRN Reason: Hypoglycemia Stop: 10/19/24 12:08 Hydralazine HCl (Hydralazine 20 Mg/Ml Vial) 10 mg IV-PUSH Q4H PRN PRN Reason: Hypertension Stop: 10/19/24 11:09 Hydralazine HCl (Hydralazine 25 Mg Tablet) 25 mg PO BID [facility] Stop: 10/26/24 20:59 Last Admin: 10/31/23 08:13 Dose: 25 mg Magnesium Sulfate (Magnesium Sulf 2gm-*Swfi*) 2 gm in 50 mls @ 25 mls/hr IV DAILY PRN PRN Reason: Magnesium Level < 1.5 Stop: 10/19/24 11:09 Insulin Aspart (Insulin Aspart 300 Units/3 Ml Insuln.Pen) 0 units SUBCUT TID.[facility]; Protocol Stop: 10/19/24 16:59 Last Admin: 10/31/23 08:12 Dose: 4 units Insulin Aspart Prota 70%/Aspart 30% (Insulin Aspart Protamin/Aspart 300 Units/3 Ml Insuln.Pen) 26 units SUBCUT BID.AC.BKFAST.SUPPER [facility] Stop: 10/19/24 16:29 Last Admin: 10/31/23 08:12 Dose: 26 units Isosorbide Mononitrate (Isosorbide Mononitrate 24hr Er 120 Mg Tab.Er.24h) 120 mg PO DAILY.6A [facility] Stop: 10/27/24 05:59 Last Admin: 10/31/23 06:22 Dose: 120 mg Labetalol HCl (Labetalol 100 Mg/20 Ml Vial) 5 mg IV-PUSH Q4H PRN PRN Reason: Hypertension Stop: 10/19/24 10:54 Levothyroxine Sodium (Levothyroxine 75 Mcg Tablet) 75 mcg PO DAILY.629 [facility] Stop: 10/20/24 06:29 Last Admin: 10/31/23 06:22 Dose: 75 mcg Melatonin (Melatonin 5 Mg Tablet) 5 mg PO QHS PRN PRN Reason: Insomnia Stop: 10/19/24 11:09 Last Admin: 10/27/23 21:55 Dose: 5 mg Morphine Sulfate (Morphine Sulfate 4 Mg/Ml Cartridge) 2 mg IV-PUSH Q4H PRN PRN Reason: Pain Scale 8 - 10 Last Admin: 10/26/23 21:31 Dose: 2 mg Nitroglycerin (Nitroglycerin 0.4 Mg Tab.Subl) 0.4 mg SUBLINGUAL Q5M PRN PRN Reason: Chest Pain Stop: 10/19/24 10:47 Last Admin: 10/24/23 01:59 Dose: 0.4 mg Ondansetron HCl (Ondansetron 4 Mg/2 Ml Vial) 4 mg IV-PUSH Q8H PRN PRN Reason: Nausea And Vomiting Stop: 10/19/24 11:04 Pantoprazole Sodium (Pantoprazole 40 Mg Tablet.Dr) 40 mg PO BID [facility] Stop: 10/27/24 20:59 Last Admin: 10/31/23 08:13 Dose: 40 mg Potassium Chloride (Potassium Chloride Er 20 Meq Tab.Er.Prt) 40 meq PO DAILY PRN PRN Reason: Hypokalemia Stop: 10/19/24 11:09 Quetiapine Fumarate (Quetiapine Fumarate 25 Mg Tablet) 25 mg PO QHS [facility] Stop: 10/27/24 21:59 Last Admin: 10/30/23 21:00 Dose: 25 mg Torsemide (Torsemide 20 Mg Tablet) 40 mg PO DAILY@0800 [facility] Stop: 10/30/24 09:04 Last Admin: 10/31/23 09:28 Dose: 40 mg Allergies codeine Allergy (Unknown, Verified 10/21/23 12:01) Nightmare, bad dreams acetaminophen [From Tylenol] Adverse Reaction (Verified 10/21/23 12:01) Nightmare Results - Nephrology Labs 10/29/23 07:45 10/31/23 05:30 Labs: 10/31/23 05:30 BUN 78 H Creatinine 2.92 H Radiology Impressions Impressions - last 24 hours: Any impression(s) listed above is documentation that was entered by the reading physician into a diagnostic report(s) for Rachel Hollingsworth SR. I have reviewed the report(s) and am incorporating any findings in the treatment plan of this patient where applicable. A&P - Nephrology Assessment/Plan (1) Acute kidney injury superimposed on CKD: Assessment/Problem Details: MilligramsHe has LILIANA on CKD possibly due to the symptomatic anemia or cardiorenal in the setting of ACS. Patient never had workup for CKD however itsmost likely diabetic nephropathy. Baseline creatinine 2.1 mg/dL, was up to 3.7 currently stabilized at 3.4 mg/dL (2) CKD (chronic kidney disease) stage 4, GFR 15-29 ml/min: Assessment/Problem Details: He has a CKD due to the longstanding DM and HTN baseline serum creatinine is around 2.1 mg/dL. (3) Anemia: Assessment/Problem Details: He has anemia and was transfused 2 unit of PRBC. Stool positive for blood however the patient had previous colon surgery. GI recommend maximizing PPI only. (4) Type 2 diabetes mellitus with diabetic chronic kidney disease: Assessment/Problem Details: He has insulin-dependent type 2 diabetes mellitus was taking NovoLog at home. (5) Hypertensive chronic kidney disease with stage 1 through stage 4 chronic kidney disease, or unspecified chronic kidney disease: Assessment/Problem Details: Blood pressure is controlled. Valsartan was stopped on admission because of elevated creatinine. Plan * Polyuria resolved. I will start the patient on torsemide 40 mg p.o. daily * will continue Tenorio catheter for accurate urine output documentation and acute urinary retention. Will continue finasteride * Will continue to monitor electrolytes and replace as needed * Patient had 3 units of packed RBCs. Hemoglobin is stable for the last 72 hours. Stool occult blood was positive for blood however there is no active bleeding. Patient is back on Plavix. He had low iron stores. Status post loading dose of Ferrlecit. No plan for endoscopy at this point by GI * Valsartan and amlodipine are on hold because of lower blood pressure and LILIANA. Patient is currently on hydralazine, isosorbide mononitrate, and carvedilol. Blood pressure is well-controlled * Patient was evaluated by cardiology and decision was made to continue conservative treatment only with no intervention despite elevated troponin because of the high risk of being on dialysis that the patient absolutely refuses. * Check renal function panel in a.m. Renal team will continue to follow. Call if any question or concern. Documented By: Tom Kelly MD 10/31/23 105 Signed By: <Electronically signed by Tom Kelly MD> 10/31/23 1057 [facility] C[facility] Work Phone: 1(294) 790-472706-06-2024 Progress note Author [facility] October 30, 2023 2:51pm Note Date/Time October 30, 2023 2:47p m [facility] [address] [place] [address] Cardiology Progress Note Signed Patient: Rachel Hollingsworth SR MR#: [id number] : 1935 Acct:[id number] Age/Sex: 88 / M Adm Date: 4 Loc: Room: [address] [place] [address] Type: ADM IN Attending Dr: Francia Kirby MD Copies to: ~ Date of Service: 10/30/2023 Subjective Principal diagnosis: Chest pain/angina/CHF Interval history: Patient is resting comfortably in bed in flat position with no dyspnea on nasal cannula oxygen. Vital signs are stable. No lower extremity edema. No fever. responding well to medical therapy and is no longer requiring IV Lasix but wouldlikely need oral supplements. Renal function is close to what it was yesterday Exam Physical Exam Vital Signs: Temp Pulse Resp BP Pulse Ox O2 Del Method O2 Flow Rate 97.6 F 68 18 137/67 95 Nasal Cannula 2 10/30/23 11:27 10/30/23 11:27 10/30/23 11:27 10/30/23 11:27 10/30/23 11:27 10/30/23 11:27 10/30/23 11:27 FiO2 50 10/28/23 12:21 Const General: comfortable and no acute distress Nutritional Appearance: obese Orientation: alert, awake and oriented x3 HEENT Head: normal to inspection Ears: hearing grossly normal bilaterally Nose: external nose normal Face and sinus: normal facial exam Eyes Conjunctivae: conjunctivae normal Pupils: PERRL Neck Neck: trachea midline and supple Neck mass: No Thyroid: thyroid normal Carotids: normal carotid upstroke Resp Effort & Inspection: normal respiratory effort Auscultation: clear to auscultation bilaterally Cardio Jugular venous pressure: no JVD Palpation: normal PMI Rate: regular rate Rhythm: regular rhythm Heart Sounds: S1 normal and S2 normal GI Inspection: normal to inspection Palpation: soft and no hepatosplenomegaly Extrem General: no clubbing, cyanosis or edema Objective Labs 10/29/23 07:45 10/30/23 04:49 Labs: Laboratory Results - last 24 hr 10/29/23 10/29/23 10/30/23 16:12 20:55 04:49 PHA Creatinine Clear 19.39 Sodium 137 Potassium 4.1 Chloride 96 L Carbon Dioxide 31.1 H Anion Gap 14.0 BUN 87 H Creatinine 3.07 H Est GFR (CKD-EPI) 19.077 Glucose 168 H POC Glucose 214 230 POC Glucose Comment Glu2: cleaned meter Calcium 8.0 L 10/30/23 11:54 PHA Creatinine Clear Sodium Potassium Chloride Carbon Dioxide Anion Gap BUN Creatinine Est GFR (CKD-EPI) Glucose POC Glucose 314 POC Glucose Comment Glu2: cleaned meter Calcium A&P - Cardiology (1) NSTEMI (non-ST elevated myocardial infarction): Assessment/Problem Details: Patient is currently with no angina. Plan: Continue nitrates, Plavix, beta-blockers and high intensity statin. No invasive workup per patient's request Code(s): I21.4 - Non-ST elevation (NSTEMI) myocardial infarction (2) Acute kidney injury superimposed on CKD: Assessment/Problem Details: Kidney function is in stage IV and nephrology is following Plan: Conservative therapy, patient has no desire for dialysis, avoid nephrotoxic medications, currently on IV Lasix drip Code(s): N17.9 - Acute kidney failure, unspecified; N18.9 - Chronic kidney disease, unspecified (3) Paroxysmal atrial fibrillation: Assessment/Problem Details: Currently in sinus rhythm on amiodarone Plan: Continue amiodarone 200 mg daily, no anticoagulation at the present time due to his risk of severe anemia Code(s): I48.0 - Paroxysmal atrial fibrillation (4) Hypothyroid: Assessment/Problem Details: On replacement therapy to be continued Plan: Continue thyroid supplements Code(s): E03.9 - Hypothyroidism, unspecified (5) Diabetes: Assessment/Problem Details: Presently stable Plan: Discontinue Jardiance due to advanced kidney disease Code(s): E11.9 - Type 2 diabetes mellitus without complications (6) Hyperlipidemia: Plan: Continue high intensity statin Code(s): E78.5 - Hyperlipidemia, unspecified (7) Systolic heart failure: Assessment/Problem Details: This is acute due to the non-ST elevation myocardial infarction EF 40-45% with severe inferior wall hypokinesis Plan: Continue current therapy Code(s): I50.20 - Unspecified systolic (congestive) heart failure (8) Anemia: Assessment/Problem Details: Status post blood transfusion with no active bleeding presently Qualifiers: Anemia type: other cause Other causes of anemia: other cause, not classified Qualified Code(s): D64.89 - Other specified anemias Plan: Avoid Eliquis but continue Plavix Code(s): D64.9 - Anemia, unspecified Documented By: Felice Lyons MD, [facility] [id number] Signed By: <Electronically signed by [facility]ie Lyons> 10/30/[address] [place] [address] Ctr Work Phone: 1([phone]) 852-382006-06-2024 Progress note Author Tom Kelly [facility] October 30, 2023 1:40pm Note Date/Time October 30, 2023 1:40p balaji [facility] [address] [place] [address] Nephrology Progress Note Signed Patient: Rachel Hollingsworth MR#: [id number] : 1935 Acct:[id number] Age/Sex: 88 / M Adm Date: 4 Loc: 4P Room: 7H2992-7 Type: ADM IN Attending Dr: Francia Kirby MD Copies to: ~ Date of Service: 10/30/2023 Subjective Subjective Narrative: This is a 88-year-old male with medical history of CAD s/p CABG in 2003, CKD, DM, HTN, HLD and A-fib presented to [place] ER with chest pain. He had a EKG showed diffuse ST depression. He was found to have anemia with hemoglobin 8 g/dL. He also found to have abnormal renal function with elevated serum creatinine 3 mg/dL and BUN 65 mg/dL. His chest x-ray showed cardiomegaly with interstitial infiltrate possibly due to CHF versus a multifocal pneumonia. White cell count was normal so no antibiotics were given. He was given blood transfusion and was transferred to the [facility] for further care. Patient reported to have a longstanding insulin-dependent type 2 diabetes mellitus and currently takes insulin. He denies any history of diabetic retinopathy. He reported that that he stopped following with his PCP and has not been seen close to a year. Upon review of his records, it appears the patient has a longstanding CKD and his serum creatinine was 2.1 mg in May 2023. He denies any evaluation by the contracts representative in the past. Nephrology is consulted for LILIANA on CKD. Interval history: Patient was seen and examined in his room. Patient oxygenation has improved. He is only requiring 2 L/min nasal cannula. Patient is now auto diuresing without diuretics. Patient made 4.1 L urine output yesterday. Continues to have Tenorio catheter. Lab this morning revealed serum creatinine slightly better at 3.0 mg deciliter from 3.3 mg deciliter yesterday, BUN 87 mg deciliter and potassium 4.1 Hemoglobin is better after 3 units of packed RBCs. Patient was evaluated by GIlucy because of no evidence of active GI bleeding and the high risk of the patient, PPI was maximized with no plan for EGD or colonoscopy at this point. Hemoglobin is stable for the last 72 hours Cardiology also following the patient for non-ST PR and no plan for cardiac cath Exam Physical Exam Vital Signs: Temp Pulse Resp BP Pulse Ox O2 Del Method O2 Flow Rate 97.6 F 68 18 137/67 95 Nasal Cannula 2 10/30/23 11:27 10/30/23 11:27 10/30/23 11:27 10/30/23 11:27 10/30/23 11:27 10/30/23 11:27 10/30/23 11:27 FiO2 50 10/28/23 12:21 Narrative: General: No acute distress Head :atraumatic normocephalic Eyes: PERRLA. Neck: no JVD no bruit. Heart: S1-S2. RRR Respiratory: Bilateral lower lobes crackles Abdomen: Soft, positive bowel sounds,no tenderness. Neurology: Awake alert oriented x3. No focal deficits Extremity. No cyanosis. Trace edema of lower extremities Skin: No skin rash Objective Intake and Output I&O: Intake & Output 10/27/23 10/28/23 10/29/23 10/30/23 23:59 23:59 23:59 23:59 Intake Total 1050 / 1050 1300 / 1300 940 / 940 650 / 650 Output Total 2300 / 2300 5800 / 5800 4175 / 4175 1250 / 1250 Balance -1250 / -1250 -4500 / -4500 -3235 / -3235 -600 / -600 Weight 218 lb 7.649 oz 210 lb 8.663 oz 203 lb 11.314 oz 205 lb 4.006 oz Meds and Allergies Meds: Active Medications Acetaminophen (Acetaminophen 325 Mg Tablet) 650 mg PO Q6HR PRN PRN Reason: Pain Scale 1 - 3 or fever Stop: 10/19/24 11:04 Last Admin: 10/30/23 08:36 Dose: 650 mg Amiodarone HCl (Amiodarone 200 Mg Tablet) 200 mg PO DAILY [facility] Stop: 10/27/24 08:59 Last Admin: 10/30/23 09:21 Dose: 200 mg Atorvastatin Calcium (Atorvastatin 80 Mg Tablet) 80 mg PO DAILY [facility] Stop: 10/20/24 08:59 Last Admin: 10/30/23 09:21 Dose: 80 mg Carvedilol (Carvedilol 25 Mg Tablet) 25 mg PO BID.PC.BKFAST.SUPPER [facility] Stop: 10/21/24 17:59 Last Admin: 10/30/23 09:21 Dose: 25 mg Clopidogrel Bisulfate (Clopidogrel Bisulfate 75 Mg Tablet) 75 mg PO DAILY [facility] Stop: 10/27/24 08:59 Last Admin: 10/30/23 09:21 Dose: 75 mg Dextrose (Dextrose 50% In Water 25 Gm/50 Ml Syringe) 0 gm IV-PUSH PRN PRN PRN Reason: Hypoglycemia Stop: 10/19/24 12:08 Finasteride (Finasteride 5 Mg Tablet) 5 mg PO QHS [facility] Stop: 10/19/24 21:59 Last Admin: 10/29/23 21:00 Dose: 5 mg Fluoxetine HCl (Fluoxetine 10 Mg Capsule) 10 mg PO DAILY [facility] Stop: 10/20/24 08:59 Last Admin: 10/30/23 09:21 Dose: 10 mg Glucose (Dextrose 40% Gel 15 Gm Tube) 0 gm PO PRN PRN PRN Reason: Hypoglycemia Stop: 10/19/24 12:08 Hydralazine HCl (Hydralazine 20 Mg/Ml Vial) 10 mg IV-PUSH Q4H PRN PRN Reason: Hypertension Stop: 10/19/24 11:09 Hydralazine HCl (Hydralazine 25 Mg Tablet) 25 mg PO BID [facility] Stop: 10/26/24 20:59 Last Admin: 10/30/23 09:21 Dose: 25 mg Magnesium Sulfate (Magnesium Sulf 2gm-*Swfi*) 2 gm in 50 mls @ 25 mls/hr IV DAILY PRN PRN Reason: Magnesium Level < 1.5 Stop: 10/19/24 11:09 Insulin Aspart (Insulin Aspart 300 Units/3 Ml Insuln.Pen) 0 units SUBCUT TID.WM.HS [facility]; Protocol Stop: 10/19/24 16:59 Last Admin: 10/30/23 11:55 Dose: 12 units Insulin Aspart Prota 70%/Aspart 30% (Insulin Aspart Protamin/Aspart 300 Units/3 Ml Insuln.Pen) 26 units SUBCUT BID.AC.BKFAST.SUPPER [facility] Stop: 10/19/24 16:29 Last Admin: 10/30/23 09:21 Dose: 26 units Isosorbide Mononitrate (Isosorbide Mononitrate 24hr Er 120 Mg Tab.Er.24h) 120 mg PO DAILY.6A [facility] Stop: 10/27/24 05:59 Last Admin: 10/30/23 06:31 Dose: 120 mg Labetalol HCl (Labetalol 100 Mg/20 Ml Vial) 5 mg IV-PUSH Q4H PRN PRN Reason: Hypertension Stop: 10/19/24 10:54 Levothyroxine Sodium (Levothyroxine 75 Mcg Tablet) 75 mcg PO DAILY.06 [facility] Stop: 10/20/24 06:29 Last Admin: 10/30/23 06:32 Dose: 75 mcg Melatonin (Melatonin 5 Mg Tablet) 5 mg PO QHS PRN PRN Reason: Insomnia Stop: 10/19/24 11:09 Last Admin: 10/27/23 21:55 Dose: 5 mg Morphine Sulfate (Morphine Sulfate 4 Mg/Ml Cartridge) 2 mg IV-PUSH Q4H PRN PRN Reason: Pain Scale 8 - 10 Last Admin: 10/26/23 21:31 Dose: 2 mg Nitroglycerin (Nitroglycerin 0.4 Mg Tab.Subl) 0.4 mg SUBLINGUAL Q5M PRN PRN Reason: Chest Pain Stop: 10/19/24 10:47 Last Admin: 10/24/23 01:59 Dose: 0.4 mg Ondansetron HCl (Ondansetron 4 Mg/2 Ml Vial) 4 mg IV-PUSH Q8H PRN PRN Reason: Nausea And Vomiting Stop: 10/19/24 11:04 Pantoprazole Sodium (Pantoprazole 40 Mg Tablet.Dr) 40 mg PO BID [facility] Stop: 10/27/24 20:59 Last Admin: 10/30/23 09:21 Dose: 40 mg Potassium Chloride (Potassium Chloride Er 20 Meq Tab.Er.Prt) 40 meq PO DAILY PRN PRN Reason: Hypokalemia Stop: 10/19/24 11:09 Quetiapine Fumarate (Quetiapine Fumarate 25 Mg Tablet) 25 mg PO QHS [facility] Stop: 10/27/24 21:59 Last Admin: 10/29/23 23:26 Dose: 25 mg Allergies codeine Allergy (Unknown, Verified 10/21/23 12:01) Nightmare, bad dreams acetaminophen [From Tylenol] Adverse Reaction (Verified 10/21/23 12:01) Nightmare Results - Nephrology Labs 10/29/23 07:45 10/30/23 04:49 Labs: 10/30/23 04:49 BUN 87 H Creatinine 3.07 H Radiology Impressions Impressions - last 24 hours: Any impression(s) listed above is documentation that was entered by the reading physician into a diagnostic report(s) for Rachel Murphyh SR. I have reviewed the report(s) and am incorporating any findings in the treatment plan of this patient where applicable. A&P - Nephrology Assessment/Plan (1) Acute kidney injury superimposed on CKD: Assessment/Problem Details: MilligramsHe has LILIANA on CKD possibly due to the symptomatic anemia or cardiorenal in the setting of ACS. Patient never had workup for CKD however itsmost likely diabetic nephropathy. Baseline creatinine 2.1 mg/dL, was up to 3.7 currently stabilized at 3.4 mg/dL (2) CKD (chronic kidney disease) stage 4, GFR 15-29 ml/min: Assessment/Problem Details: He has a CKD due to the longstanding DM and HTN baseline serum creatinine is around 2.1 mg/dL. (3) Anemia: Assessment/Problem Details: He has anemia and was transfused 2 unit of PRBC. Stool positive for blood however the patient had previous colon surgery. GI recommend maximizing PPI only. (4) Type 2 diabetes mellitus with diabetic chronic kidney disease: Assessment/Problem Details: He has insulin-dependent type 2 diabetes mellitus was taking NovoLog at home. (5) Hypertensive chronic kidney disease with stage 1 through stage 4 chronic kidney disease, or unspecified chronic kidney disease: Assessment/Problem Details: Blood pressure is controlled. Valsartan was stopped on admission because of elevated creatinine. Plan * No need for diuresis. Patient has polyuria following bladder outlet obstruction relief * will continue Tenorio catheter for accurate urine output documentation and acute urinary retention. Will continue finasteride * Will continue to monitor electrolytes and replace as needed * Patient had 3 units of packed RBCs. Hemoglobin is stable for the last 72 hours. Stool occult blood was positive for blood however there is no active bleeding. Patient is back on Plavix. He had low iron stores. Status post loading dose of Ferrlecit. No plan for endoscopy at this point by GI * Valsartan and amlodipine are on hold because of lower blood pressure and LILIANA. Patient is currently on hydralazine, isosorbide mononitrate, and carvedilol. Blood pressure is well-controlled * Patient was evaluated by cardiology and decision was made to continue conservative treatment only with no intervention despite elevated troponin because of the high risk of being on dialysis that the patient absolutely refuses. * Check renal function panel in a.m. Renal team will continue to follow. Call if any question or concern. Documented By: Tom Kelly MD 10/30/23 1339 Signed By: <Electronically signed by Tom Kelly MD> 10/30/23 49[address] [facility] Work Phone: 1(590) 863-988406-06-2024 Progress note Author Francia Kirby [facility] October 30, 2023 12:47pm Note Date/Time October 30, 2023 12:22 pm [facility] [address] [place] [address] Hospitalist Progress Note Signed Patient: Rachel Hollingsworth SR MR#: [id number] : 1935 Acct:[id number] Age/Sex: 88 / M Adm Date: 4 Loc: Room: [address] [place] [address] Type: ADM IN Attending Dr: Francia Kirby MD Copies to: ~ Date of Service: 10/30/2023 Subjective Subjective Narrative: Seen and examined Feeling better NO SOB No Chest pain No fever Exam Physical Exam Vital Signs: Temp Pulse Resp BP Pulse Ox O2 Del Method O2 Flow Rate 97.6 F 68 18 137/67 95 Nasal Cannula 2 10/30/23 11:27 10/30/23 11:27 10/30/23 11:27 10/30/23 11:27 10/30/23 11:27 10/30/23 11:27 10/30/23 11:27 FiO2 50 10/28/23 12:21 Narrative: General patient laying in bed in no acute distress alert awake oriented x3 HEENT PERRLA Neck supple no JVD no carotid bruit CVS S1-S2 regular rate and rhythm no murmur no gallop Chest clear to auscultation percussion Abdomen soft bowel sounds normoactive no rebound no guarding Extremities no stenosis no clubbing no edema Musculoskeletal exam normal no joint effusion Neurologic exam oriented x3 alert awake no focal left Psychiatry: Normal insight and judgment Skin: no rash or lesions Objective Lab Results 10/29/23 07:45 10/30/23 04:49 Meds Allergies and Active Meds Allergies codeine Allergy (Unknown, Verified 10/21/23 12:01) Nightmare, bad dreams acetaminophen [From Tylenol] Adverse Reaction (Verified 10/21/23 12:01) Nightmare Active Meds: Active Medications Generic Name Dose Route Start Last Admin Trade Name Carlo PRN Reason Stop Dose Admin Acetaminophen 650 mg 10/20/23 11:05 10/30/23 08:36 Acetaminophen 325 Mg Tablet PO 10/19/24 11:04 650 mg Q6HR PRN Administration Pain Scale 1 - 3 or fever Amiodarone HCl 200 mg 10/28/23 09:00 10/30/23 09:21 Amiodarone 200 Mg Tablet PO 10/27/24 08:59 200 mg DAILY [facility] Administration Atorvastatin Calcium 80 mg 10/21/23 09:00 10/30/23 09:21 Atorvastatin 80 Mg Tablet PO 10/20/24 08:59 80 mg DAILY [facility] Administration Carvedilol 25 mg 10/22/23 18:00 10/30/23 09:21 Carvedilol 25 Mg Tablet PO 10/21/24 17:59 25 mg BID.PC.BKFAST.SUPPER [facility] Administration Clopidogrel Bisulfate 75 mg 10/28/23 09:00 10/30/23 09:21 Clopidogrel Bisulfate 75 Mg Tablet PO 10/27/24 08:59 75 mg DAILY [facility] Administration Dextrose 0 gm 10/20/23 12:09 Dextrose 50% In Water 25 Gm/50 Ml Syringe IV-PUSH 10/19/24 12:08 PRN PRN Hypoglycemia Finasteride 5 mg 10/20/23 22:00 10/29/23 21:00 Finasteride 5 Mg Tablet PO 10/19/24 21:59 5 mg QHS [facility] Administration Fluoxetine HCl 10 mg 10/21/23 09:00 10/30/23 09:21 Fluoxetine 10 Mg Capsule PO 10/20/24 08:59 10 mg DAILY [facility] Administration Glucose 0 gm 10/20/23 12:09 Dextrose 40% Gel 15 Gm Tube PO 10/19/24 12:08 PRN PRN Hypoglycemia Hydralazine HCl 10 mg 10/20/23 11:10 Hydralazine 20 Mg/Ml Vial IV-PUSH 10/19/24 11:09 Q4H PRN Hypertension Hydralazine HCl 25 mg 10/27/23 21:00 10/30/23 09:21 Hydralazine 25 Mg Tablet PO 10/26/24 20:59 25 mg BID [facility] Administration Magnesium Sulfate 2 gm in 50 mls @ 25 mls/hr 10/20/23 11:10 Magnesium Sulf 2gm-*Swfi* IV 10/19/24 11:09 DAILY PRN Magnesium Level < 1.5 Insulin Aspart 0 units 10/20/23 17:00 10/30/23 11:55 Insulin Aspart 300 Units/3 Ml Insuln.Pen SUBCUT 10/19/24 16:59 12 units TID.WM.HS [facility] Administration Protocol Insulin Aspart Prota 70%/Aspart 30% 26 units 10/20/23 16:30 10/30/23 09:21 Insulin Aspart Protamin/Aspart 300 Units/3 Ml Insuln.Pen SUBCUT 10/19/24 16:29 26 units BID.AC.BKFAST.SUPPER [facility] Administration Isosorbide Mononitrate 120 mg 10/28/23 06:00 10/30/23 06:31 Isosorbide Mononitrate 24hr Er 120 Mg Tab.Er.24h PO 10/27/24 05:59 120 mg DAILY.6A [facility] Administration Labetalol HCl 5 mg 10/20/23 10:55 Labetalol 100 Mg/20 Ml Vial IV-PUSH 10/19/24 10:54 Q4H PRN Hypertension Levothyroxine Sodium 75 mcg 10/21/23 06:30 10/30/23 06:32 Levothyroxine 75 Mcg Tablet PO 10/20/24 06:29 75 mcg DAILY.0630 [facility] Administration Melatonin 5 mg 10/20/23 11:10 10/27/23 21:55 Melatonin 5 Mg Tablet PO 10/19/24 11:09 5 mg QHS PRN Administration Insomnia Morphine Sulfate 2 mg 10/23/23 05:29 10/26/23 21:31 Morphine Sulfate 4 Mg/Ml Cartridge IV-PUSH 2 mg Q4H PRN Administration Pain Scale 8 - 10 Nitroglycerin 0.4 mg 10/20/23 10:48 10/24/23 01:59 Nitroglycerin 0.4 Mg Tab.Subl SUBLINGUAL 10/19/24 10:47 0.4 mg Q5M PRN Administration Chest Pain Ondansetron HCl 4 mg 10/20/23 11:05 Ondansetron 4 Mg/2 Ml Vial IV-PUSH 10/19/24 11:04 Q8H PRN Nausea And Vomiting Pantoprazole Sodium 40 mg 10/28/23 21:00 06/06/24 09:21 Pantoprazole 40 Mg Tablet.Dr PO 10/27/24 20:59 40 mg BID [facility] Administration Potassium Chloride 40 meq 10/20/23 11:10 Potassium Chloride Er 20 Meq Tab.Er.Prt PO 10/19/24 11:09 DAILY PRN Hypokalemia Quetiapine Fumarate 25 mg 10/28/23 22:00 10/29/23 23:26 Quetiapine Fumarate 25 Mg Tablet PO 10/27/24 21:59 25 mg QHS [facility] Administration A&P - Hospitalist Assessment/Plan (1) NSTEMI (non-ST elevated myocardial infarction): (2) CAD (coronary artery disease): (3) CKD (chronic kidney disease) stage 3, GFR 30-59 ml/min: Plan: LILIANA on CKD 4 (4) Diabetes: (5) Anemia in CKD (chronic kidney disease): (6) Hypertension: (7) Hypothyroid: (8) GERD (gastroesophageal reflux disease): Plan Non-STEMI Acute diastolic CHF Seen and examined Feeling better No SOB ON NC at 3 liter Saturation 93% Kidney function is improving Off Lasix Infusion Nephrology is following Discussed with nephrology Hemoglobin and hematocrit are stable Cardiology is following No plan for invasive cardiac work at this time Cardiorenal LILIANA Urinary Retention S/p Tenorio cath Nephrology is following Kidney function is improving Cr is down to 3.07 BMP daily Acute hypoxic respiratory failure due to acute diastolic CHF On NC at 3 liter per min DC Lasix infusion BMP in am Possible upper GI bleeding S/p RBC transfusion Eliquis on hold H/H are stable Protonix PO daily H/H in am GI consulted- No plan for scopes at this time Hypertension: Hold valsartan and continue with Norvasc Hyperlipidemia: Continue with Lipitor daily Diabetes type2: Insulin sliding scale/Jardiance Morbid obese: Lifestyle modification DC planning: SNF Documented By: Francia Kirby MD 10/30/23 1217 Signed By: <Electronically signed by Francia Kirby MD> 10/30/23 [address] [facility] Work Phone: 1(805) 299-471006-05-2024 Progress note Author Felice Lyons [facility] October 29, 2023 4:55pm Note Date/Time October 29, 2023 4:55p [facility] [address] [place] [id number] Cardiology Progress Note Signed Patient: Rachel Hollingsworth SR MR#: [id number] : 1935 Acct:[id number] Age/Sex: 88 / M Adm Date: 4 Loc: 4P Room: [address] [place] [address] Type: ADM IN Attending Dr: Francia Kirby MD Copies to: ~ Date of Service: 10/29/2023 Subjective Principal diagnosis: Chest pain/angina Interval history: Patient is resting comfortably in bed in flat position with no dyspnea on nasal cannula oxygen. Vital signs are stable. No lower extremity edema. No fever. 70 responding well to medical therapy and is no longer requiring IV Bumex drip. Renal function is close to what it was yesterday Exam Physical Exam Vital Signs: Temp Pulse Resp BP Pulse Ox O2 Del Method O2 Flow Rate 97.5 F L 65 18 112/56 L 95 Nasal Cannula 4 10/29/23 15:36 10/29/23 15:36 10/29/23 15:36 10/29/23 15:36 10/29/23 15:36 10/29/23 16:00 10/29/23 16:00 FiO2 50 10/28/23 12:21 Const General: comfortable and no acute distress Nutritional Appearance: obese Orientation: alert, awake and oriented x3 HEENT Head: normal to inspection Ears: hearing grossly normal bilaterally Nose: external nose normal Face and sinus: normal facial exam Eyes Conjunctivae: conjunctivae normal Pupils: PERRL Neck Neck: trachea midline and supple Neck mass: No Thyroid: thyroid normal Carotids: normal carotid upstroke Resp Effort & Inspection: normal respiratory effort Auscultation: clear to auscultation bilaterally Cardio Jugular venous pressure: no JVD Palpation: normal PMI Rate: regular rate Rhythm: regular rhythm Heart Sounds: S1 normal and S2 normal GI Inspection: normal to inspection Palpation: soft and no hepatosplenomegaly Extrem General: no clubbing, cyanosis or edema Objective Labs 10/29/23 07:45 10/29/23 07:45 Labs: Laboratory Results - last 24 hr 10/28/23 10/29/23 10/29/23 21:58 07:45 12:05 Corrected WBC 9.4 Uncorrected WBC Count 9.4 RBC 2.93 L Hgb 8.9 L Hct 26.1 L MCV 89.1 MCH 30.6 MCHC 34.3 RDW 14.8 Plt Count 215 MPV 8.3 Neut % (Auto) 66.6 Lymph % (Auto) 17.4 [place] % (Auto) 8.2 Eos % (Auto) 6.7 Baso % (Auto) 1.1 Nucleat RBC Rel Count 0.1 Neut # (Auto) 6.3 Lymph # (Auto) 1.6 [place] # (Auto) 0.8 Eos # (Auto) 0.6 H Baso # (Auto) 0.1 PHA Creatinine Clear 17.93 Sodium 139 Potassium 3.6 Chloride 95 L Carbon Dioxide 31.8 H Anion Gap 15.8 H BUN 85 H Creatinine 3.32 H Est GFR (CKD-EPI) 17.367 Glucose 117 H POC Glucose 218 274 POC Glucose Comment Glu2: cleaned meter Calcium 8.9 10/29/23 16:12 Corrected WBC Uncorrected WBC Count RBC Hgb Hct MCV MCH MCHC RDW Plt Count MPV Neut % (Auto) Lymph % (Auto) [place] % (Auto) Eos % (Auto) Baso % (Auto) Nucleat RBC Rel Count Neut # (Auto) Lymph # (Auto) [place] # (Auto) Eos # (Auto) Baso # (Auto) PHA Creatinine Clear Sodium Potassium Chloride Carbon Dioxide Anion Gap BUN Creatinine Est GFR (CKD-EPI) Glucose POC Glucose 214 POC Glucose Comment Glu2: cleaned meter Calcium A&P - Cardiology (1) NSTEMI (non-ST elevated myocardial infarction): Assessment/Problem Details: Patient is currently with no angina. Plan: Continue nitrates, Plavix, beta-blockers and high intensity statin. No invasive workup per patient's request Code(s): I21.4 - Non-ST elevation (NSTEMI) myocardial infarction (2) Acute kidney injury superimposed on CKD: Assessment/Problem Details: Kidney function is in stage IV and nephrology is following Plan: Conservative therapy, patient has no desire for dialysis, avoid nephrotoxic medications, currently on IV Lasix drip Code(s): N17.9 - Acute kidney failure, unspecified; N18.9 - Chronic kidney disease, unspecified (3) Paroxysmal atrial fibrillation: Assessment/Problem Details: Currently in sinus rhythm on amiodarone Plan: Continue amiodarone 200 mg daily, no anticoagulation at the present time due to his risk of severe anemia Code(s): I48.0 - Paroxysmal atrial fibrillation (4) Hypothyroid: Assessment/Problem Details: On replacement therapy to be continued Plan: Continue thyroid supplements Code(s): E03.9 - Hypothyroidism, unspecified (5) Diabetes: Assessment/Problem Details: Presently stable Plan: Discontinue Jardiance due to advanced kidney disease Code(s): E11.9 - Type 2 diabetes mellitus without complications (6) Hyperlipidemia: Plan: Continue high intensity statin Code(s): E78.5 - Hyperlipidemia, unspecified (7) Systolic heart failure: Assessment/Problem Details: This is acute due to the non-ST elevation myocardial infarction EF 40-45% with severe inferior wall hypokinesis Plan: Continue current therapy Code(s): I50.20 - Unspecified systolic (congestive) heart failure (8) Anemia: Assessment/Problem Details: Status post blood transfusion with no active bleeding presently Qualifiers: Anemia type: other cause Other causes of anemia: other cause, not classified Qualified Code(s): D64.89 - Other specified anemias Plan: Avoid Eliquis but continue Plavix Code(s): D64.9 - Anemia, unspecified Documented By: Felice Lyons MD, [facility] 165 Signed By: <Electronically signed by [facility] Felice Lyons> 10/29/[address] [place] [address] Work Phone: [phone] Progress note [facility] October 29, 2023 1:52pm Note Date/Time October 29, 2023 1:52p [facility] [address] [place] [address] Nephrology Progress Note Signed Patient: Rachel Hollingsworth SR MR#: [id number] : 1935 Acct:[id number] Age/Sex: 88 / M Adm Date: 4 Loc: Room: [address] [place] [address] Type: ADM IN Attending Dr: Francia Kirby MD Copies to: ~ Date of Service: 10/29/2023 Subjective Subjective Narrative: This is a 88-year-old male with medical history of CAD s/p CABG in 2003, CKD, DM, HTN, HLD and A-fib presented to [facility] with chest pain. He had a EKG showed diffuse ST depression. He was found to have anemia with hemoglobin 8 g/dL. He also found to have abnormal renal function with elevated serum creatinine 3 mg/dL and BUN 65 mg/dL. His chest x-ray showed cardiomegaly with interstitial infiltrate possibly due to CHF versus a multifocal pneumonia. White cell count was normal so no antibiotics were given. He was given blood transfusion and was transferred to the [facility] for further care. Patient reported to have a longstanding insulin-dependent type 2 diabetes mellitus and currently takes insulin. He denies any history of diabetic retinopathy. He reported that that he stopped following with his PCP and has not been seen close to a year. Upon review of his records, it appears the patient has a longstanding CKD and his serum creatinine was 2.1 mg in May 2023. He denies any evaluation by the contracts representative in the past. Nephrology is consulted for LILIANA on CKD. Interval history: Patient was seen and examined in his room. Patient oxygenation has improved. He is only requiring 4 L/min nasal cannula. He is to be on Lasix drip at dose 10 mg/h. Patient made more than 5 L urine output. Continues to have Tenorio catheter. FRepeated lab this morning revealed serum creatinine slightly higher at 3.3 mg deciliter from 3.15 mg deciliter yesterday, potassium 3.6 mmol/L, BUN 83 mg deciliter Repeated chest x-ray October 26 revealed worsening parenchymal changes left more than right.BNP was up to 1900r Hemoglobin is better after 3 units of packed RBCs. Patient was evaluated by Angela because of no evidence of active GI bleeding and the high risk of the patient, PPI was maximized with no plan for EGD or colonoscopy at this point. Hemoglobin is stable for the last 24 hours Cardiology also following the patient for non-ST PR and no plan for cardiac cath Exam Physical Exam Vital Signs: Temp Pulse Resp BP Pulse Ox O2 Del Method O2 Flow Rate 97.8 F 64 20 111/69 97 Nasal Cannula 4 10/29/23 12:00 10/29/23 12:10/29/23 12:00 10/29/23 12:00 10/29/23 12:00 10/29/23 12:10/29/23 12:00 FiO2 50 10/28/23 12:21 Narrative: General: No acute distress Head :atraumatic normocephalic Eyes: PERRLA. Neck: no JVD no bruit. Heart: S1-S2. RRR Respiratory: Bilateral lower lobes crackles Abdomen: Soft, positive bowel sounds,no tenderness. Neurology: Awake alert oriented x3. No focal deficits Extremity. No cyanosis. Trace edema of lower extremities Skin: No skin rash Objective Intake and Output I&O: Intake & Output 10/26/23 10/27/23 10/28/23 10/29/23 23:59 23:59 23:59 23:59 Intake Total 750 / 750 1050 / 1050 1300 / 1300 340 / 340 Output Total 2100 / 2100 2300 / 2300 5800 / 5800 2525 / 2525 Balance -1350 / -1350 -1250 / -1250 -4500 / -4500 -2185 / -2185 Weight 217 lb 13.067 oz 218 lb 7.649 oz 210 lb 8.663 oz 203 lb 11.314 oz Meds and Allergies Meds: Active Medications Acetaminophen (Acetaminophen 325 Mg Tablet) 650 mg PO Q6HR PRN PRN Reason: Pain Scale 1 - 3 or fever Stop: 10/19/24 11:04 Last Admin: 10/27/23 21:56 Dose: 650 mg Amiodarone HCl (Amiodarone 200 Mg Tablet) 200 mg PO DAILY [facility] Stop: 10/27/24 08:59 Last Admin: 10/29/23 09:47 Dose: 200 mg Atorvastatin Calcium (Atorvastatin 80 Mg Tablet) 80 mg PO DAILY [facility] Stop: 10/20/24 08:59 Last Admin: 10/29/23 09:47 Dose: 80 mg Carvedilol (Carvedilol 25 Mg Tablet) 25 mg PO BID.PC.BKFAST.SUPPER [facility] Stop: 10/21/24 17:59 Last Admin: 10/29/23 09:47 Dose: 25 mg Clopidogrel Bisulfate (Clopidogrel Bisulfate 75 Mg Tablet) 75 mg PO DAILY [facility] Stop: 10/27/24 08:59 Last Admin: 10/29/23 09:47 Dose: 75 mg Dextrose (Dextrose 50% In Water 25 Gm/50 Ml Syringe) 0 gm IV-PUSH PRN PRN PRN Reason: Hypoglycemia Stop: 10/19/24 12:08 Finasteride (Finasteride 5 Mg Tablet) 5 mg PO QHS [facility] Stop: 10/19/24 21:59 Last Admin: 10/28/23 22:00 Dose: 5 mg Fluoxetine HCl (Fluoxetine 10 Mg Capsule) 10 mg PO DAILY [facility] Stop: 10/20/24 08:59 Last Admin: 10/29/23 09:47 Dose: 10 mg Glucose (Dextrose 40% Gel 15 Gm Tube) 0 gm PO PRN PRN PRN Reason: Hypoglycemia Stop: 10/19/24 12:08 Hydralazine HCl (Hydralazine 20 Mg/Ml Vial) 10 mg IV-PUSH Q4H PRN PRN Reason: Hypertension Stop: 10/19/24 11:09 Hydralazine HCl (Hydralazine 25 Mg Tablet) 25 mg PO BID [facility] Stop: 10/26/24 20:59 Last Admin: 10/29/23 09:47 Dose: 25 mg Magnesium Sulfate (Magnesium Sulf 2gm-*Swfi*) 2 gm in 50 mls @ 25 mls/hr IV DAILY PRN PRN Reason: Magnesium Level < 1.5 Stop: 10/19/24 11:09 Insulin Aspart (Insulin Aspart 300 Units/3 Ml Insuln.Pen) 0 units SUBCUT TID.WM.HS [facility]; Protocol Stop: 10/19/24 16:59 Last Admin: 10/29/23 13:07 Dose: 8 units Insulin Aspart Prota 70%/Aspart 30% (Insulin Aspart Protamin/Aspart 300 Units/3 Ml Insuln.Pen) 26 units SUBCUT BID.AC.BKFAST.SUPPER [facility] Stop: 10/19/24 16:29 Last Admin: 10/29/23 09:47 Dose: 26 units Isosorbide Mononitrate (Isosorbide Mononitrate 24hr Er 120 Mg Tab.Er.24h) 120 mg PO DAILY.6A [facility] Stop: 10/27/24 05:59 Last Admin: 10/29/23 05:48 Dose: 120 mg Labetalol HCl (Labetalol 100 Mg/20 Ml Vial) 5 mg IV-PUSH Q4H PRN PRN Reason: Hypertension Stop: 10/19/24 10:54 Levothyroxine Sodium (Levothyroxine 75 Mcg Tablet) 75 mcg PO DAILY.0630 [facility] Stop: 10/20/24 06:29 Last Admin: 10/29/23 05:48 Dose: 75 mcg Melatonin (Melatonin 5 Mg Tablet) 5 mg PO QHS PRN PRN Reason: Insomnia Stop: 10/19/24 11:09 Last Admin: 10/27/23 21:55 Dose: 5 mg Morphine Sulfate (Morphine Sulfate 4 Mg/Ml Cartridge) 2 mg IV-PUSH Q4H PRN PRN Reason: Pain Scale 8 - 10 Last Admin: 10/26/23 21:31 Dose: 2 mg Nitroglycerin (Nitroglycerin 0.4 Mg Tab.Subl) 0.4 mg SUBLINGUAL Q5M PRN PRN Reason: Chest Pain Stop: 10/19/24 10:47 Last Admin: 10/24/23 01:59 Dose: 0.4 mg Ondansetron HCl (Ondansetron 4 Mg/2 Ml Vial) 4 mg IV-PUSH Q8H PRN PRN Reason: Nausea And Vomiting Stop: 10/19/24 11:04 Pantoprazole Sodium (Pantoprazole 40 Mg Tablet.Dr) 40 mg PO BID [facility] Stop: 10/27/24 20:59 Last Admin: 10/29/23 09:47 Dose: 40 mg Potassium Chloride (Potassium Chloride Er 20 Meq Tab.Er.Prt) 40 meq PO DAILY PRN PRN Reason: Hypokalemia Stop: 10/19/24 11:09 Quetiapine Fumarate (Quetiapine Fumarate 25 Mg Tablet) 25 mg PO QHS [facility] Stop: 10/27/24 21:59 Last Admin: 10/28/23 22:00 Dose: 25 mg Allergies codeine Allergy (Unknown, Verified 10/21/23 12:01) Nightmare, bad dreams acetaminophen [From Tylenol] Adverse Reaction (Verified 10/21/23 12:01) Nightmare Results - Nephrology Labs 10/29/23 07:45 10/29/23 07:45 Labs: 10/29/23 07:45 BUN 85 H Creatinine 3.32 H Radiology Impressions Impressions - last 24 hours: Any impression(s) listed above is documentation that was entered by the reading physician into a diagnostic report(s) for Rachel Hollingsworth SR. I have reviewed the report(s) and am incorporating any findings in the treatment plan of this patient where applicable. A&P - Nephrology Assessment/Plan (1) Acute kidney injury superimposed on CKD: Assessment/Problem Details: MilligramsHe has LILIANA on CKD possibly due to the symptomatic anemia or cardiorenal in the setting of ACS. Patient never had workup for CKD however itsmost likely diabetic nephropathy. Baseline creatinine 2.1 mg/dL, was up to 3.7 currently stabilized at 3.4 mg/dL (2) CKD (chronic kidney disease) stage 4, GFR 15-29 ml/min: Assessment/Problem Details: He has a CKD due to the longstanding DM and HTN baseline serum creatinine is around 2.1 mg/dL. (3) Anemia: Assessment/Problem Details: He has anemia and was transfused 2 unit of PRBC. Stool positive for blood however the patient had previous colon surgery. GI recommend maximizing PPI only. (4) Type 2 diabetes mellitus with diabetic chronic kidney disease: Assessment/Problem Details: He has insulin-dependent type 2 diabetes mellitus was taking NovoLog at home. (5) Hypertensive chronic kidney disease with stage 1 through stage 4 chronic kidney disease, or unspecified chronic kidney disease: Assessment/Problem Details: Blood pressure is controlled. Valsartan was stopped on admission because of elevated creatinine. Plan * Will stop Lasix drip. Will hold diuresis for 24-hour. Will likely resume loop diuretic tomorrow * will continue Tenorio catheter for accurate urine output documentation and acute urinary retention. Will continue finasteride * Will continue to monitor electrolytes and replace as needed * Patient had 3 units of packed RBCs. Hemoglobin is stable for the last 72 hours. Stool occult blood was positive for blood however there is no active bleeding. Patient is back on Plavix. He had low iron stores. Status post loading dose of Ferrlecit. No plan for endoscopy at this point by GI * Valsartan and amlodipine are on hold because of lower blood pressure and LILIANA. Patient is currently on hydralazine, isosorbide mononitrate, and carvedilol. * Patient was evaluated by cardiology and decision was made to continue conservative treatment only with no intervention despite elevated troponin because of the high risk of being on dialysis that the patient absolutely refuses. * Check renal function panel in a.m. Renal team will continue to follow. Call if any question or concern. Documented By: Tom Kelly MD 10/29/23 6301 Signed By: <Electronically signed by Tom Kelly MD> 10/29/23 [address] [facility] Work Phone: [phone]) 669-959406-05-2024 Progress note Author Francia Kirby [facility] October 29, 2023 11:18am Note Date/Time October 29, 2023 11:18 am [facility] [address] [place] [address] Hospitalist Progress Note Signed Patient: Rachel Hollingsworth SR MR#: [id number] : 1935 Acct:[id number] Age/Sex: 88 / M Adm Date: 4 Loc: Room: [address] [place] [address] Type: ADM IN Attending Dr: Francia Kirby MD Copies to: ~ Date of Service: 10/29/2023 Subjective Subjective Narrative: Seen and examined Feeling better NO SOB No Chest pain No fever Off High flow O2 Exam Physical Exam Vital Signs: Temp Pulse Resp BP Pulse Ox O2 Del Method O2 Flow Rate 97.5 F L 72 20 135/74 96 Nasal Cannula 5 10/29/23 08:00 10/29/23 08:00 10/29/23 08:00 10/29/23 08:00 10/29/23 08:00 10/29/23 08:00 10/29/23 08:00 FiO2 50 10/28/23 12:21 Narrative: General patient laying in bed in no acute distress alert awake oriented x3 HEENT PERRLA Neck supple no JVD no carotid bruit CVS S1-S2 regular rate and rhythm no murmur no gallop Chest clear to auscultation percussion Abdomen soft bowel sounds normoactive no rebound no guarding Extremities no stenosis no clubbing no edema Musculoskeletal exam normal no joint effusion Neurologic exam oriented x3 alert awake no focal left Psychiatry: Normal insight and judgment Skin: no rash or lesions Objective Lab Results 10/29/23 07:45 10/29/23 07:45 Meds Allergies and Active Meds Allergies codeine Allergy (Unknown, Verified 10/21/23 12:01) Nightmare, bad dreams acetaminophen [From Tylenol] Adverse Reaction (Verified 10/21/23 12:01) Nightmare Active Meds: Active Medications Generic Name Dose Route Start Last Admin Trade Name Freq PRN Reason Stop Dose Admin Acetaminophen 650 mg 10/20/23 11:05 10/27/23 21:56 Acetaminophen 325 Mg Tablet PO 10/19/24 11:04 650 mg Q6HR PRN Administration Pain Scale 1 - 3 or fever Amiodarone HCl 200 mg 10/28/23 09:00 10/29/23 09:47 Amiodarone 200 Mg Tablet PO 10/27/24 08:59 200 mg DAILY [facility] Administration Atorvastatin Calcium 80 mg 10/21/23 09:00 10/29/23 09:47 Atorvastatin 80 Mg Tablet PO 10/20/24 08:59 80 mg DAILY [facility] Administration Carvedilol 25 mg 10/22/23 18:00 10/29/23 09:47 Carvedilol 25 Mg Tablet PO 10/21/24 17:59 25 mg BID.PC.BKFAST.SUPPER [facility] Administration Clopidogrel Bisulfate 75 mg 10/28/23 09:00 10/29/23 09:47 Clopidogrel Bisulfate 75 Mg Tablet PO 10/27/24 08:59 75 mg DAILY [facility] Administration Dextrose 0 gm 10/20/23 12:09 Dextrose 50% In Water 25 Gm/50 Ml Syringe IV-PUSH 10/19/24 12:08 PRN PRN Hypoglycemia Finasteride 5 mg 10/20/23 22:00 10/28/23 22:00 Finasteride 5 Mg Tablet PO 10/19/24 21:59 5 mg QHS [facility] Administration Fluoxetine HCl 10 mg 10/21/23 09:00 10/29/23 09:47 Fluoxetine 10 Mg Capsule PO 10/20/24 08:59 10 mg DAILY [facility] Administration Glucose 0 gm 10/20/23 12:09 Dextrose 40% Gel 15 Gm Tube PO 10/19/24 12:08 PRN PRN Hypoglycemia Hydralazine HCl 10 mg 10/20/23 11:10 Hydralazine 20 Mg/Ml Vial IV-PUSH 10/19/24 11:09 Q4H PRN Hypertension Hydralazine HCl 25 mg 10/27/23 21:00 10/29/23 09:47 Hydralazine 25 Mg Tablet PO 10/26/24 20:59 25 mg BID [facility] Administration Magnesium Sulfate 2 gm in 50 mls @ 25 mls/hr 10/20/23 11:10 Magnesium Sulf 2gm-*Swfi* IV 10/19/24 11:09 DAILY PRN Magnesium Level < 1.5 Insulin Aspart 0 units 10/20/23 17:00 10/29/23 09:43 Insulin Aspart 300 Units/3 Ml Insuln.Pen SUBCUT 10/19/24 16:59 Not Given TID.WM.HS [facility] Protocol Insulin Aspart Prota 70%/Aspart 30% 26 units 10/20/23 16:30 10/29/23 09:47 Insulin Aspart Protamin/Aspart 300 Units/3 Ml Insuln.Pen SUBCUT 10/19/24 16:29 26 units BID.AC.BKFAST.SUPPER [facility] Administration Isosorbide Mononitrate 120 mg 10/28/23 06:00 10/29/23 05:48 Isosorbide Mononitrate 24hr Er 120 Mg Tab.Er.24h PO 10/27/24 05:59 120 mg DAILY.6A [facility] Administration Labetalol HCl 5 mg 10/20/23 10:55 Labetalol 100 Mg/20 Ml Vial IV-PUSH 10/19/24 10:54 Q4H PRN Hypertension Levothyroxine Sodium 75 mcg 10/21/23 06:30 10/29/23 05:48 Levothyroxine 75 Mcg Tablet PO 10/20/24 06:29 75 mcg DAILY.0630 [facility] Administration Melatonin 5 mg 10/20/23 11:10 10/27/23 21:55 Melatonin 5 Mg Tablet PO 10/19/24 11:09 5 mg QHS PRN Administration Insomnia Morphine Sulfate 2 mg 10/23/23 05:29 10/26/23 21:31 Morphine Sulfate 4 Mg/Ml Cartridge IV-PUSH 2 mg Q4H PRN Administration Pain Scale 8 - 10 Nitroglycerin 0.4 mg 10/20/23 10:48 10/24/23 01:59 Nitroglycerin 0.4 Mg Tab.Subl SUBLINGUAL 10/19/24 10:47 0.4 mg Q5M PRN Administration Chest Pain Ondansetron HCl 4 mg 10/20/23 11:05 Ondansetron 4 Mg/2 Ml Vial IV-PUSH 10/19/24 11:04 Q8H PRN Nausea And Vomiting Pantoprazole Sodium 40 mg 10/28/23 21:00 10/29/23 09:47 Pantoprazole 40 Mg Tablet.Dr PO 10/27/24 20:59 40 mg BID [facility] Administration Potassium Chloride 40 meq 10/20/23 11:10 Potassium Chloride Er 20 Meq Tab.Er.Prt PO 10/19/24 11:09 DAILY PRN Hypokalemia Quetiapine Fumarate 25 mg 10/28/23 22:00 10/28/23 22:00 Quetiapine Fumarate 25 Mg Tablet PO 10/27/24 21:59 25 mg QHS [facility] Administration A&P - Hospitalist Assessment/Plan (1) NSTEMI (non-ST elevated myocardial infarction): (2) CAD (coronary artery disease): (3) CKD (chronic kidney disease) stage 3, GFR 30-59 ml/min: Plan: LILIANA on CKD 4 (4) Diabetes: (5) Anemia in CKD (chronic kidney disease): (6) Hypertension: (7) Hypothyroid: (8) GERD (gastroesophageal reflux disease): Plan Non-STEMI Acute diastolic CHF Seen and examined Feeling better No SOB Off high flow oxygen with FiO2 down to 55% Saturation 96% Echocardiogram Interpretation Summary Ejection Fraction = 45-50%. Moderate concentric left ventricular hypertrophy. There is moderate inferior wall hypokinesis. There is trace mitral regurgitation. There is trace tricuspid regurgitation. There is no comparison study available. Kidney function is stable DC Lasix Infusion at 10 mg every hour Nephrology is following Discussed with nephrology Hemoglobin and hematocrit are stable Cardiology is following Cardiorenal LILIANA Urinary retention S/p Tenorio cath Nephrology is following Discussed with nephrology Lasix infusion Kidney function is improving BMP daily Acute hypoxic respiratory failure due to acute diastolic CHF Off high flow ox DC Lasix infusion BMP in am Possible upper GI bleeding Plavix and Eliquis were held H/H are stable Protonix PO daily H/H in am GI consulted- no plan for scopes at this time Hypertension: Hold valsartan and continue with Norvasc Hyperlipidemia: Continue with Lipitor daily Diabetes type2: Insulin sliding scale/Jardiance Morbid obese: Lifestyle modification DC planning: SNF Documented By: Francia Kirby MD 10/29/23 111 Signed By: <Electronically signed by Francia Kirby MD> 10/29/23 [address] [facility] Work Phone: 1(137) 512-956506-04-2024 Progress note Author Felice Lyons [facility] October 28, 2023 6:55pm Note Date/Time October 28, 2023 6:52p m [facility] [address] [place] [address] Cardiology Progress Note Signed Patient: Rachel Hollingsworth SR MR#: [id number] : 1935 Acct:[id number] Age/Sex: 88 / M Adm Date: 4 Loc: 4 Room: [address] [place] [address] Type: ADM IN Attending Dr: Francia Kirby MD Copies to: ~ Date of Service: 10/28/2023 Subjective Principal diagnosis: Chest pain/angina Interval history: Patient is unchanged from yesterday, sitting up in the chair on less oxygen and appears to be comfortable. Denies any chest pain or dyspnea, he remains in sinus rhythm. Blood pressure is normal, saturation is normal. No fever. Chestx-ray from yesterday demonstrated evidence of increased vascular markings bilaterally. Currently he is on intravenous Lasix drip ordered by nephrology. Creatinine clearance is 18 mL/min. Exam Physical Exam Vital Signs: Temp Pulse Resp BP Pulse Ox O2 Del Method O2 Flow Rate 98.0 F 65 18 118/66 93 L Nasal Cannula 5 10/28/23 15:10/28/23 15:10/28/23 15:10/28/23 15:10/28/23 15:10/28/23 16:00 10/28/23 16:00 FiO2 50 10/28/23 12:21 Const General: comfortable and no acute distress Nutritional Appearance: obese Orientation: alert, awake and oriented x3 HEENT Head: normal to inspection Ears: hearing grossly normal bilaterally Nose: external nose normal Face and sinus: normal facial exam Eyes Conjunctivae: conjunctivae normal Pupils: PERRL Neck Neck: trachea midline and supple Neck mass: No Thyroid: thyroid normal Carotids: normal carotid upstroke Resp Effort & Inspection: normal respiratory effort Auscultation: clear to auscultation bilaterally Cardio Jugular venous pressure: no JVD Palpation: normal PMI Rate: regular rate Rhythm: regular rhythm Heart Sounds: S1 normal and S2 normal GI Inspection: normal to inspection Palpation: soft and no hepatosplenomegaly Extrem General: no clubbing, cyanosis or edema Objective Labs 10/28/23 05:03 10/28/23 05:03 Labs: Laboratory Results - last 24 hr 10/27/23 10/28/23 10/28/23 21:58 05:03 06:55 Corrected WBC 8.2 Uncorrected WBC Count 8.2 RBC 2.95 L Hgb 8.9 L Hct 26.2 L MCV 88.7 MCH 30.1 MCHC 33.9 RDW 14.9 H Plt Count 196 MPV 8.8 Neut % (Auto) 66.5 Lymph % (Auto) 17.7 [place] % (Auto) 9.8 Eos % (Auto) 5.1 Baso % (Auto) 0.9 Nucleat RBC Rel Count 0.1 Neut # (Auto) 5.4 Lymph # (Auto) 1.4 [place] # (Auto) 0.8 Eos # (Auto) 0.4 Baso # (Auto) 0.1 PHA Creatinine Clear 19.54 Sodium 135 L Potassium 3.3 L Chloride 97 L Carbon Dioxide 29.8 Anion Gap 11.5 BUN 86 H Creatinine 3.15 H Est GFR (CKD-EPI) 18.498 Glucose 62 L POC Glucose 300 129 POC Glucose Comment Calcium 8.6 10/28/23 10/28/23 11:35 16:30 Corrected WBC Uncorrected WBC Count RBC Hgb Hct MCV MCH MCHC RDW Plt Count MPV Neut % (Auto) Lymph % (Auto) [place] % (Auto) Eos % (Auto) Baso % (Auto) Nucleat RBC Rel Count Neut # (Auto) Lymph # (Auto) [place] # (Auto) Eos # (Auto) Baso # (Auto) PHA Creatinine Clear Sodium Potassium Chloride Carbon Dioxide Anion Gap BUN Creatinine Est GFR (CKD-EPI) Glucose POC Glucose 306 154 POC Glucose Comment Glu2: cleaned meter Glu2: cleaned meter Calcium A&P - Cardiology (1) NSTEMI (non-ST elevated myocardial infarction): Assessment/Problem Details: Patient is currently with no angina. We discussed invasive versus noninvasive approach and due to advanced kidney disease and his unwillingness to proceed with dialysis he wishes for conservative therapy with no invasive cardiac workup Plan: Continue nitrates, Plavix, beta-blockers and high intensity statin. Code(s): I21.4 - Non-ST elevation (NSTEMI) myocardial infarction (2) Acute kidney injury superimposed on CKD: Assessment/Problem Details: Kidney function is in stage IV and nephrology is following Plan: Conservative therapy, patient has no desire for dialysis, avoid nephrotoxic medications, currently on IV Lasix drip Code(s): N17.9 - Acute kidney failure, unspecified; N18.9 - Chronic kidney disease, unspecified (3) Paroxysmal atrial fibrillation: Assessment/Problem Details: Currently in sinus rhythm on amiodarone Plan: Continue amiodarone 200 mg daily, no anticoagulation at the present time due to his risk of severe anemia Code(s): I48.0 - Paroxysmal atrial fibrillation (4) Hypothyroid: Assessment/Problem Details: On replacement therapy to be continued Plan: Continue thyroid supplements Code(s): E03.9 - Hypothyroidism, unspecified (5) Diabetes: Assessment/Problem Details: Presently stable Plan: Discontinue Jardiance due to advanced kidney disease Code(s): E11.9 - Type 2 diabetes mellitus without complications (6) Hyperlipidemia: Plan: Continue high intensity statin Code(s): E78.5 - Hyperlipidemia, unspecified (7) Systolic heart failure: Assessment/Problem Details: This is acute due to the non-ST elevation myocardial infarction EF 40-45% with severe inferior wall hypokinesis Plan: Continue current therapy Code(s): I50.20 - Unspecified systolic (congestive) heart failure (8) Anemia: Assessment/Problem Details: Status post blood transfusion with no active bleeding presently Qualifiers: Anemia type: other cause Other causes of anemia: other cause, not classified Qualified Code(s): D64.89 - Other specified anemias Plan: Avoid Eliquis but continue Plavix Code(s): D64.9 - Anemia, unspecified Documented By: Felice Lyons MD, [facility] 1851 Signed By: <Electronically signed by [facility] Felice Lyons> 10/28/23 6808 [facility] Work Phone: [phone] 114-407706-04-2024 Progress note Author Tom Kelly [facility] October 28, 2023 11:12am Note Date/Time October 28, 2023 11:12 am [facility] [address] [place] [address] Nephrology Progress Note Signed Patient: aRchel Hollingsworth MR#: [id number] : 1935 Acct:[id number] Age/Sex: 88 / M Adm Date: 4 Loc: Room: [address] [place] [address] Type: ADM IN Attending Dr: Francia Kirby MD Copies to: ~ Date of Service: 10/28/2023 Subjective Subjective Narrative: This is a 88-year-old male with medical history of CAD s/p CABG in 2003, CKD, DM, HTN, HLD and A-fib presented to [facility] ER with chest pain. He had a EKG showed diffuse ST depression. He was found to have anemia with hemoglobin 8 g/dL. He also found to have abnormal renal function with elevated serum creatinine 3 mg/dL and BUN 65 mg/dL. His chest x-ray showed cardiomegaly with interstitial infiltrate possibly due to CHF versus a multifocal pneumonia. White cell count was normal so no antibiotics were given. He was given blood transfusion and was transferred to the [facility] for further care. Patient reported to have a longstanding insulin-dependent type 2 diabetes mellitus and currently takes insulin. He denies any history of diabetic retinopathy. He reported that that he stopped following with his PCP and has not been seen close to a year. Upon review of his records, it appears the patient has a longstanding CKD and his serum creatinine was 2.1 mg in May 2023. He denies any evaluation by the contracts representative in the past. Nephrology is consulted for LILIANA on CKD. Interval history: Patient was seen and examined in his room. Tenorio catheter was placed yesterday for urinary retention. Patient started on Lasix drip yesterday with dose 10 mg/h. Patient made more than 4 L urine outputyesterday. Repeated lab this morning revealed serum creatinine 3.15 mg deciliter from 3.4 mg deciliter yesterday, potassium 3.3 mmol/L, sodium 135, BUN84 mg deciliter oxygen requirement slightly better at 35 L /min Repeated chest x-ray October 26 revealed worsening parenchymal changes left more than right.BNP was up to 1900r Hemoglobin is better after 3 units of packed RBCs. Patient was evaluated by GIand because of no evidence of active GI bleeding and the high risk of the patient, PPI was maximized with no plan for EGD or colonoscopy at this point. Cardiology also following the patient for non-ST PR and no plan for cardiac cath Exam Physical Exam Vital Signs: Temp Pulse Resp BP Pulse Ox O2 Del Method O2 Flow Rate 97.7 F 66 17 127/70 94 L High Flow 35 10/28/23 11:10/28/23 11:24 11:05 10/28/23 11:05 10/28/23 11:05 10/28/23 11:05 10/28/23 11:05 FiO2 55 10/28/23 11:05 Narrative: General: No acute distress Head :atraumatic normocephalic Eyes: PERRLA. Neck: no JVD no bruit. Heart: S1-S2. RRR Respiratory: Bilateral lower lobes crackles Abdomen: Soft, positive bowel sounds,no tenderness. Neurology: Awake alert oriented x3. No focal deficits Extremity. No cyanosis. Trace edema of lower extremities Skin: No skin rash Objective Intake and Output I&O: Intake & Output 10/25/23 10/26/23 10/27/23 10/28/23 23:59 23:59 23:59 23:59 Intake Total 1350 / 1350 750 / 750 1050 / 1050 500 / 500 Output Total 1250 / 1250 2100 / 2100 2300 / 2300 2875 / 2875 Balance 100 / 100 -1350 / -1350 -1250 / -1250 -2375 / -2375 Weight 221 lb 9.033 oz 217 lb 13.067 oz 218 lb 7.649 oz 210 lb 8.663 oz Meds and Allergies Meds: Active Medications Acetaminophen (Acetaminophen 325 Mg Tablet) 650 mg PO Q6HR PRN PRN Reason: Pain Scale 1 - 3 or fever Stop: 10/19/24 11:04 Last Admin: 10/27/23 21:56 Dose: 650 mg Amiodarone HCl (Amiodarone 200 Mg Tablet) 200 mg PO DAILY [facility] Stop: 10/27/24 08:59 Last Admin: 10/28/23 09:05 Dose: 200 mg Atorvastatin Calcium (Atorvastatin 80 Mg Tablet) 80 mg PO DAILY [facility] Stop: 10/20/24 08:59 Last Admin: 10/28/23 09:04 Dose: 80 mg Carvedilol (Carvedilol 25 Mg Tablet) 25 mg PO BID.PC.BKFAST.SUPPER [facility] Stop: 10/21/24 17:59 Last Admin: 10/28/23 09:05 Dose: 25 mg Clopidogrel Bisulfate (Clopidogrel Bisulfate 75 Mg Tablet) 75 mg PO DAILY [facility] Stop: 10/27/24 08:59 Last Admin: 10/28/23 09:05 Dose: 75 mg Dextrose (Dextrose 50% In Water 25 Gm/50 Ml Syringe) 0 gm IV-PUSH PRN PRN PRN Reason: Hypoglycemia Stop: 10/19/24 12:08 Finasteride (Finasteride 5 Mg Tablet) 5 mg PO QHS [facility] Stop: 10/19/24 21:59 Last Admin: 10/27/23 21:56 Dose: 5 mg Fluoxetine HCl (Fluoxetine 10 Mg Capsule) 10 mg PO DAILY [facility] Stop: 10/20/24 08:59 Last Admin: 10/28/23 09:05 Dose: 10 mg Glucose (Dextrose 40% Gel 15 Gm Tube) 0 gm PO PRN PRN PRN Reason: Hypoglycemia Stop: 10/19/24 12:08 Hydralazine HCl (Hydralazine 20 Mg/Ml Vial) 10 mg IV-PUSH Q4H PRN PRN Reason: Hypertension Stop: 10/19/24 11:09 Hydralazine HCl (Hydralazine 25 Mg Tablet) 25 mg PO BID [facility] Stop: 10/26/24 20:59 Last Admin: 10/28/23 09:05 Dose: 25 mg Magnesium Sulfate (Magnesium Sulf 2gm-*Swfi*) 2 gm in 50 mls @ 25 mls/hr IV DAILY PRN PRN Reason: Magnesium Level < 1.5 Stop: 10/19/24 11:09 Furosemide 500 mg/ Sodium (Chloride) 100 mls @ 2 mls/hr IV .Q24H [facility] Stop: 10/26/24 12:14 Last Admin: 10/27/23 13:35 Dose: 10 mg/hr, 2 mls/hr Insulin Aspart (Insulin Aspart 300 Units/3 Ml Insuln.Pen) 0 units SUBCUT TID.WM.HS [facility]; Protocol Stop: 10/19/24 16:59 Last Admin: 10/28/23 08:58 Dose: Not Given Insulin Aspart Prota 70%/Aspart 30% (Insulin Aspart Protamin/Aspart 300 Units/3 Ml Insuln.Pen) 26 units SUBCUT BID.AC.BKFAST.SUPPER [facility] Stop: 10/19/24 16:29 Last Admin: 10/28/23 09:09 Dose: 26 units Isosorbide Mononitrate (Isosorbide Mononitrate 24hr Er 120 Mg Tab.Er.24h) 120 mg PO DAILY.6A [facility] Stop: 10/27/24 05:59 Last Admin: 10/28/23 06:56 Dose: 120 mg Labetalol HCl (Labetalol 100 Mg/20 Ml Vial) 5 mg IV-PUSH Q4H PRN PRN Reason: Hypertension Stop: 10/19/24 10:54 Levothyroxine Sodium (Levothyroxine 75 Mcg Tablet) 75 mcg PO DAILY.06 [facility] Stop: 10/20/24 06:29 Last Admin: 10/28/23 06:56 Dose: 75 mcg Melatonin (Melatonin 5 Mg Tablet) 5 mg PO QHS PRN PRN Reason: Insomnia Stop: 10/19/24 11:09 Last Admin: 10/27/23 21:55 Dose: 5 mg Morphine Sulfate (Morphine Sulfate 4 Mg/Ml Cartridge) 2 mg IV-PUSH Q4H PRN PRN Reason: Pain Scale 8 - 10 Last Admin: 10/26/23 21:31 Dose: 2 mg Nitroglycerin (Nitroglycerin 0.4 Mg Tab.Subl) 0.4 mg SUBLINGUAL Q5M PRN PRN Reason: Chest Pain Stop: 10/19/24 10:47 Last Admin: 10/24/23 01:59 Dose: 0.4 mg Ondansetron HCl (Ondansetron 4 Mg/2 Ml Vial) 4 mg IV-PUSH Q8H PRN PRN Reason: Nausea And Vomiting Stop: 10/19/24 11:04 Pantoprazole Sodium (Pantoprazole 40 Mg Vial) 40 mg IV-PUSH BID [facility] Stop: 10/24/24 20:59 Last Admin: 10/28/23 09:04 Dose: 40 mg Potassium Chloride (Potassium Chloride Er 20 Meq Tab.Er.Prt) 40 meq PO DAILY PRN PRN Reason: Hypokalemia Stop: 10/19/24 11:09 Sodium Chloride (Sodium Chloride 0.9 % 10 Ml Vial.Pf) 10 ml INJECTION BID [facility] Stop: 10/24/24 20:59 Last Admin: 10/28/23 09:04 Dose: 10 ml Sodium Chloride (Sodium Chloride 0.9 % 10 Ml Syringe) 10 ml IV-PUSH BID [facility] Stop: 10/24/24 20:59 Last Admin: 10/28/23 09:05 Dose: 10 ml Allergies codeine Allergy (Unknown, Verified 10/21/23 12:01) Nightmare, bad dreams acetaminophen [From Tylenol] Adverse Reaction (Verified 10/21/23 12:01) Nightmare Results - Nephrology Labs 10/28/23 05:03 10/28/23 05:03 Labs: 10/28/23 05:03 BUN 86 H Creatinine 3.15 H Radiology Impressions Impressions - last 24 hours: Any impression(s) listed above is documentation that was entered by the reading physician into a diagnostic report(s) for Rachel Hollingsworth SR. I have reviewed the report(s) and am incorporating any findings in the treatment plan of this patient where applicable. A&P - Nephrology Assessment/Plan (1) Acute kidney injury superimposed on CKD: Assessment/Problem Details: MilligramsHe has LILIANA on CKD possibly due to the symptomatic anemia or cardiorenal in the setting of ACS. Patient never had workup for CKD however itsmost likely diabetic nephropathy. Baseline creatinine 2.1 mg/dL, was up to 3.7 currently stabilized at 3.4 mg/dL (2) CKD (chronic kidney disease) stage 4, GFR 15-29 ml/min: Assessment/Problem Details: He has a CKD due to the longstanding DM and HTN baseline serum creatinine is around 2.1 mg/dL. (3) Anemia: Assessment/Problem Details: He has anemia and was transfused 2 unit of PRBC. Stool positive for blood however the patient had previous colon surgery. GI recommend maximizing PPI only. (4) Type 2 diabetes mellitus with diabetic chronic kidney disease: Assessment/Problem Details: He has insulin-dependent type 2 diabetes mellitus was taking NovoLog at home. (5) Hypertensive chronic kidney disease with stage 1 through stage 4 chronic kidney disease, or unspecified chronic kidney disease: Assessment/Problem Details: Blood pressure is controlled. Valsartan was stopped on admission because of elevated creatinine. Plan * Will continue Lasix drip at the current dose since the patient still requiring high oxygen dose. Will continue Tenorio catheter for accurate urine output documentation * Will give the patient KCl 40 mill equivalent p.o. 1 dose. Check potassium level in a.m. * Patient had 3 units of packed RBCs. Hemoglobin is stable for the last 48 hours. Stool occult blood was positive for blood however there is no active bleeding. Plavix and aspirin are on hold. He has low iron stores on IV Ferrlecit. No plan for endoscopy at this point by GI * Valsartan and amlodipine are on hold because of lower blood pressure and LILIANA. * Patient was evaluated by cardiology and decision was made to continue conservative treatment only with no intervention despite elevated troponin because of the high risk of being on dialysis that the patient absolutely refuses. * Check renal function panel in a.m. . Documented By: Tom Kelly MD 10/28/23 1108 Signed By: <Electronically signed by Tom Kelly MD> 10/28/23 1112 [facility] Work Phone: 1(662) 830-730306-04-2024 Progress note Author Francia Kirby [facility] October 28, 2023 10:39am Note Date/Time October 28, 2023 10:39 am [facility] [address] [place] [address] Hospitalist Progress Note Signed Patient: Rachel Hollingsworth SR MR#: [id number] : 1935 Acct:[id number] Age/Sex: 88 / M Adm Date: 4 Loc: Room: [address] [place] [address] Type: ADM IN Attending Dr: Francia Kirby MD Copies to: ~ Date of Service: 10/28/2023 Subjective Subjective Narrative: Seen and examined Feeling better Less SOB No Chest pain No fever Still on high flow O2, down to 55% Exam Physical Exam Vital Signs: Temp Pulse Resp BP Pulse Ox O2 Del Method O2 Flow Rate 97.5 F L 61 19 104/62 94 L High Flow 35 10/28/23 08:00 10/28/23 08:00 10/28/23 08:00 10/28/23 08:00 10/28/23 08:00 10/28/23 08:00 10/28/23 08:00 FiO2 55 10/28/23 08:00 Narrative: General patient laying in bed in no acute distress alert awake oriented x3 HEENT PERRLA Neck supple no JVD no carotid bruit CVS S1-S2 regular rate and rhythm no murmur no gallop Chest clear to auscultation percussion Abdomen soft bowel sounds normoactive no rebound no guarding Extremities no stenosis no clubbing no edema Musculoskeletal exam normal no joint effusion Neurologic exam oriented x3 alert awake no focal left Psychiatry: Normal insight and judgment Skin: no rash or lesions Objective Lab Results 10/28/23 05:03 10/28/23 05:03 Meds Allergies and Active Meds Allergies codeine Allergy (Unknown, Verified 10/21/23 12:01) Nightmare, bad dreams acetaminophen [From Tylenol] Adverse Reaction (Verified 10/21/23 12:01) Nightmare Active Meds: Active Medications Generic Name Dose Route Start Last Admin Trade Name Freq PRN Reason Stop Dose Admin Acetaminophen 650 mg 10/20/23 11:05 10/27/23 21:56 Acetaminophen 325 Mg Tablet PO 10/19/24 11:04 650 mg Q6HR PRN Administration Pain Scale 1 - 3 or fever Amiodarone HCl 200 mg 10/28/23 09:00 10/28/23 09:05 Amiodarone 200 Mg Tablet PO 10/27/24 08:59 200 mg DAILY [facility] Administration Atorvastatin Calcium 80 mg 10/21/23 09:00 10/28/23 09:04 Atorvastatin 80 Mg Tablet PO 10/20/24 08:59 80 mg DAILY [facility] Administration Carvedilol 25 mg 10/22/23 18:00 10/28/23 09:05 Carvedilol 25 Mg Tablet PO 10/21/24 17:59 25 mg BID.PC.BKFAST.SUPPER [facility] Administration Clopidogrel Bisulfate 75 mg 10/28/23 09:00 10/28/23 09:05 Clopidogrel Bisulfate 75 Mg Tablet PO 10/27/24 08:59 75 mg DAILY [facility] Administration Dextrose 0 gm 10/20/23 12:09 Dextrose 50% In Water 25 Gm/50 Ml Syringe IV-PUSH 10/19/24 12:08 PRN PRN Hypoglycemia Finasteride 5 mg 10/20/23 22:00 10/27/23 21:56 Finasteride 5 Mg Tablet PO 10/19/24 21:59 5 mg QHS [facility] Administration Fluoxetine HCl 10 mg 10/21/23 09:00 10/28/23 09:05 Fluoxetine 10 Mg Capsule PO 10/20/24 08:59 10 mg DAILY [facility] Administration Glucose 0 gm 10/20/23 12:09 Dextrose 40% Gel 15 Gm Tube PO 10/19/24 12:08 PRN PRN Hypoglycemia Hydralazine HCl 10 mg 10/20/23 11:10 Hydralazine 20 Mg/Ml Vial IV-PUSH 10/19/24 11:09 Q4H PRN Hypertension Hydralazine HCl 25 mg 10/27/23 21:00 10/28/23 09:05 Hydralazine 25 Mg Tablet PO 10/26/24 20:59 25 mg BID [facility] Administration Magnesium Sulfate 2 gm in 50 mls @ 25 mls/hr 10/20/23 11:10 Magnesium Sulf 2gm-*Swfi* IV 10/19/24 11:09 DAILY PRN Magnesium Level < 1.5 Furosemide 500 mg/ Sodium 100 mls @ 2 mls/hr 10/27/23 12:15 10/27/23 13:35 Chloride IV 10/26/24 12:14 10 mg/hr .Q24H [facility] 2 mls/hr Administration 10 MG/HR Insulin Aspart 0 units 10/20/23 17:00 10/28/23 08:58 Insulin Aspart 300 Units/3 Ml Insuln.Pen SUBCUT 10/19/24 16:59 Not Given TID.WM.HS [facility] Protocol Insulin Aspart Prota 70%/Aspart 30% 26 units 10/20/23 16:30 10/28/23 09:09 Insulin Aspart Protamin/Aspart 300 Units/3 Ml Insuln.Pen SUBCUT 10/19/24 16:29 26 units BID.AC.BKFAST.SUPPER [facility] Administration Isosorbide Mononitrate 120 mg 10/28/23 06:00 10/28/23 06:56 Isosorbide Mononitrate 24hr Er 120 Mg Tab.Er.24h PO 10/27/24 05:59 120 mg DAILY.6A [facility] Administration Labetalol HCl 5 mg 10/20/23 10:55 Labetalol 100 Mg/20 Ml Vial IV-PUSH 10/19/24 10:54 Q4H PRN Hypertension Levothyroxine Sodium 75 mcg 10/21/23 06:30 10/28/23 06:56 Levothyroxine 75 Mcg Tablet PO 10/20/24 06:29 75 mcg DAILY.0630 [facility] Administration Melatonin 5 mg 10/20/23 11:10 10/27/23 21:55 Melatonin 5 Mg Tablet PO 10/19/24 11:09 5 mg QHS PRN Administration Insomnia Morphine Sulfate 2 mg 10/23/23 05:29 10/26/23 21:31 Morphine Sulfate 4 Mg/Ml Cartridge IV-PUSH 2 mg Q4H PRN Administration Pain Scale 8 - 10 Nitroglycerin 0.4 mg 10/20/23 10:48 10/24/23 01:59 Nitroglycerin 0.4 Mg Tab.Subl SUBLINGUAL 10/19/24 10:47 0.4 mg Q5M PRN Administration Chest Pain Ondansetron HCl 4 mg 10/20/23 11:05 Ondansetron 4 Mg/2 Ml Vial IV-PUSH 10/19/24 11:04 Q8H PRN Nausea And Vomiting Pantoprazole Sodium 40 mg 10/25/23 21:00 10/28/23 09:04 Pantoprazole 40 Mg Vial IV-PUSH 10/24/24 20:59 40 mg BID [facility] Administration Potassium Chloride 40 meq 10/20/23 11:10 Potassium Chloride Er 20 Meq Tab.Er.Prt PO 10/19/24 11:09 DAILY PRN Hypokalemia Sodium Chloride 10 ml 10/25/23 21:00 10/28/23 09:04 Sodium Chloride 0.9 % 10 Ml Vial.Pf INJECTION 10/24/24 20:59 10 ml BID [facility] Administration Sodium Chloride 10 ml 10/25/23 21:00 10/28/23 09:05 Sodium Chloride 0.9 % 10 Ml Syringe IV-PUSH 10/24/24 20:59 10 ml BID [facility] Administration A&P - Hospitalist Assessment/Plan (1) NSTEMI (non-ST elevated myocardial infarction): (2) CAD (coronary artery disease): (3) CKD (chronic kidney disease) stage 3, GFR 30-59 ml/min: Plan: LILIANA on CKD 4 (4) Diabetes: (5) Anemia in CKD (chronic kidney disease): (6) Hypertension: (7) Hypothyroid: (8) GERD (gastroesophageal reflux disease): Plan Non-STEMI Acute diastolic CHF Seen and examined Feeling better Less SOB Still on high flow oxygen with FiO2 down to 55% Saturation 96% Echocardiogram Interpretation Summary Ejection Fraction = 45-50%. Moderate concentric left ventricular hypertrophy. There is moderate inferior wall hypokinesis. There is trace mitral regurgitation. There is trace tricuspid regurgitation. There is no comparison study available. Had urinary retention S/p Tenorio cath Kidney function is better , cr is down to 3.15 Lasix Infusion at 10 mg every hour Nephrology is following Discussed with nephrology Hemoglobin and hematocrit are stable Cardiorenal LILIANA Dialysis option was discussed with the patient Nephrology is following Discussed with nephrology Lasix infusion Kidney function is improving BMP daily Acute hypoxic respiratory failure due to acute diastolic CHF On high flow ox Lasix Infusion BMP in am Possible upper GI bleeding Plavix and Eliquis were held H/H are stable Protonix PO daily H/H in am GI consulted- no plan for scopes at this time Hypertension: Hold valsartan and continue with no Hyperlipidemia: Continue with Lipitor daily Diabetes type2: Insulin sliding scale/Jardiance Morbid obese: Lifestyle modification Documented By: Francia Kibry MD 10/28/23 103 Signed By: <Electronically signed by Francia Kirby MD> 10/28/23 1039 [facility] Work Phone: 1(610) 407-547606-03-2024 Progress note Author Tom Kelly [facility] October 27, 2023 11:48am Note Date/Time October 27, 2023 11:48 am [facility] [address] [place] [address] Nephrology Progress Note Signed Patient: Rachel Hollingsworth MR#: [id number] : 1935 Acct:[id number] Age/Sex: 88 / M Adm Date: 4 Loc: Room: [address] [place] [address] Type: ADM IN Attending Dr: Francia Kirby MD Copies to: ~ Date of Service: 10/27/2023 Subjective Subjective Narrative: This is a 88-year-old male with medical history of CAD s/p CABG in 2003, CKD, DM, HTN, HLD and A-fib presented to [facility] ER with chest pain. He had a EKG showed diffuse ST depression. He was found to have anemia with hemoglobin 8 g/dL. He also found to have abnormal renal function with elevated serum creatinine 3 mg/dL and BUN 65 mg/dL. His chest x-ray showed cardiomegaly with interstitial infiltrate possibly due to CHF versus a multifocal pneumonia. White cell count was normal so no antibiotics were given. He was given blood transfusion and was transferred to the [facility] for further care. Patient reported to have a longstanding insulin-dependent type 2 diabetes mellitus and currently takes insulin. He denies any history of diabetic retinopathy. He reported that that he stopped following with his PCP and has not been seen close to a year. Upon review of his records, it appears the patient has a longstanding CKD and his serum creatinine was 2.1 mg in May 2023. He denies any evaluation by the contracts representative in the past. Nephrology is consulted for LILIANA on CKD. Interval history: Patient was seen and examined in his room. Patient continues to be on high flowbut requiring more oxygen 40 L/min. Continues to have exertional dyspnea. Denied chest pain no nausea no vomiting Repeated chest x-ray from this morning revealed worsening parenchymal changes left more than right.BNP is up 1900 Patient continues to be on Bumex 0.5 mg IV twice daily. Patient is making good urine output. He made 3 L in 24-hour Hemoglobin is better after 3 units of packed RBCs. Hemoglobin relatively stableat 9.0 g/dL. Patient was evaluated by GI and because of no evidence of active GI bleeding and the high risk of the patient, PPI was maximized with no plan forEGD or colonoscopy at this point. Exam Physical Exam Vital Signs: Temp Pulse Resp BP Pulse Ox O2 Del Method O2 Flow Rate 97.6 F 59 L 24 114/72 90 L High Flow 40 10/27/23 11:40 10/27/23 11:40 10/27/23 11:40 10/27/23 11:40 10/27/23 11:40 10/27/23 11:40 10/27/23 11:40 FiO2 70 10/27/23 11:40 Narrative: General: No acute distress Head :atraumatic normocephalic Eyes: PERRLA. Neck: no JVD no bruit. Heart: S1-S2. RRR Respiratory: Bilateral lower lobes crackles Abdomen: Soft, positive bowel sounds,no tenderness. Neurology: Awake alert oriented x3. No focal deficits Extremity. No cyanosis. Trace edema of lower extremities Skin: No skin rash Objective Intake and Output I&O: Intake & Output 10/24/23 10/25/23 10/26/23 10/27/23 23:59 23:59 23:59 23:59 Intake Total 750 / 750 1350 / 1350 750 / 750 500 / 500 Output Total 1550 / 1550 1250 / 1250 2100 / 2100 950 / 950 Balance -800 / -800 100 / 100 -1350 / -1350 -450 / -450 Weight 213 lb 13.574 oz 221 lb 9.033 oz 217 lb 13.067 oz 218 lb 7.649 oz Meds and Allergies Meds: Active Medications Acetaminophen (Acetaminophen 325 Mg Tablet) 650 mg PO Q6HR PRN PRN Reason: Pain Scale 1 - 3 or fever Stop: 10/19/24 11:04 Last Admin: 10/25/23 21:57 Dose: 650 mg Amiodarone HCl (Amiodarone 200 Mg Tablet) 200 mg PO DAILY [facility] Stop: 10/27/24 08:59 Atorvastatin Calcium (Atorvastatin 80 Mg Tablet) 80 mg PO DAILY [facility] Stop: 10/20/24 08:59 Last Admin: 10/27/23 08:08 Dose: 80 mg Carvedilol (Carvedilol 25 Mg Tablet) 25 mg PO BID.PC.BKFAST.SUPPER [facility] Stop: 10/21/24 17:59 Last Admin: 10/27/23 08:08 Dose: 25 mg Clopidogrel Bisulfate (Clopidogrel Bisulfate 75 Mg Tablet) 75 mg PO DAILY [facility] Stop: 10/27/24 08:59 Dextrose (Dextrose 50% In Water 25 Gm/50 Ml Syringe) 0 gm IV-PUSH PRN PRN PRN Reason: Hypoglycemia Stop: 10/19/24 12:08 Finasteride (Finasteride 5 Mg Tablet) 5 mg PO QHS [facility] Stop: 10/19/24 21:59 Last Admin: 10/26/23 21:28 Dose: 5 mg Fluoxetine HCl (Fluoxetine 10 Mg Capsule) 10 mg PO DAILY [facility] Stop: 10/20/24 08:59 Last Admin: 10/27/23 08:08 Dose: 10 mg Glucose (Dextrose 40% Gel 15 Gm Tube) 0 gm PO PRN PRN PRN Reason: Hypoglycemia Stop: 10/19/24 12:08 Hydralazine HCl (Hydralazine 20 Mg/Ml Vial) 10 mg IV-PUSH Q4H PRN PRN Reason: Hypertension Stop: 10/19/24 11:09 Hydralazine HCl (Hydralazine 25 Mg Tablet) 25 mg PO BID [facility] Stop: 10/26/24 20:59 Magnesium Sulfate (Magnesium Sulf 2gm-*Swfi*) 2 gm in 50 mls @ 25 mls/hr IV DAILY PRN PRN Reason: Magnesium Level < 1.5 Stop: 10/19/24 11:09 Furosemide 500 mg/ Sodium (Chloride) 100 mls @ 2 mls/hr IV .Q24H [facility] Stop: 10/26/24 11:44 Insulin Aspart (Insulin Aspart 300 Units/3 Ml Insuln.Pen) 0 units SUBCUT TID.WM.HS [facility]; Protocol Stop: 10/19/24 16:59 Last Admin: 10/27/23 11:39 Dose: 4 units Insulin Aspart Prota 70%/Aspart 30% (Insulin Aspart Protamin/Aspart 300 Units/3 Ml Insuln.Pen) 26 units SUBCUT BID.AC.BKFAST.SUPPER [facility] Stop: 10/19/24 16:29 Last Admin: 10/27/23 08:10 Dose: 26 units Isosorbide Mononitrate (Isosorbide Mononitrate 24hr Er 120 Mg Tab.Er.24h) 120 mg PO DAILY.6A [facility] Stop: 10/27/24 05:59 Labetalol HCl (Labetalol 100 Mg/20 Ml Vial) 5 mg IV-PUSH Q4H PRN PRN Reason: Hypertension Stop: 10/19/24 10:54 Levothyroxine Sodium (Levothyroxine 75 Mcg Tablet) 75 mcg PO DAILY.629 [facility] Stop: 10/20/24 06:29 Last Admin: 10/27/23 05:34 Dose: 75 mcg Melatonin (Melatonin 5 Mg Tablet) 5 mg PO QHS PRN PRN Reason: Insomnia Stop: 10/19/24 11:09 Last Admin: 10/26/23 21:27 Dose: 5 mg Morphine Sulfate (Morphine Sulfate 4 Mg/Ml Cartridge) 2 mg IV-PUSH Q4H PRN PRN Reason: Pain Scale 8 - 10 Last Admin: 10/26/23 21:31 Dose: 2 mg Nitroglycerin (Nitroglycerin 0.4 Mg Tab.Subl) 0.4 mg SUBLINGUAL Q5M PRN PRN Reason: Chest Pain Stop: 10/19/24 10:47 Last Admin: 10/24/23 01:59 Dose: 0.4 mg Ondansetron HCl (Ondansetron 4 Mg/2 Ml Vial) 4 mg IV-PUSH Q8H PRN PRN Reason: Nausea And Vomiting Stop: 10/19/24 11:04 Pantoprazole Sodium (Pantoprazole 40 Mg Vial) 40 mg IV-PUSH BID [facility] Stop: 10/24/24 20:59 Last Admin: 10/27/23 08:11 Dose: 40 mg Potassium Chloride (Potassium Chloride Er 20 Meq Tab.Er.Prt) 40 meq PO DAILY PRN PRN Reason: Hypokalemia Stop: 10/19/24 11:09 Sodium Chloride (Sodium Chloride 0.9 % 10 Ml Vial.Pf) 10 ml INJECTION BID [facility] Stop: 10/24/24 20:59 Last Admin: 10/27/23 08:11 Dose: 10 ml Sodium Chloride (Sodium Chloride 0.9 % 10 Ml Syringe) 10 ml IV-PUSH BID [facility] Stop: 10/24/24 20:59 Last Admin: 10/27/23 08:13 Dose: 10 ml Allergies codeine Allergy (Unknown, Verified 10/21/23 12:01) Nightmare, bad dreams acetaminophen [From Tylenol] Adverse Reaction (Verified 10/21/23 12:01) Nightmare Results - Nephrology Labs 10/27/23 04:38 10/27/23 04:38 Labs: 10/27/23 04:38 BUN 84 H Creatinine 3.43 H Radiology Impressions Impressions - last 24 hours: Impressions Chest X-Ray 10/27/23 10:02 IMPRESSION: INCREASING PARENCHYMAL CHANGES. LEFT PLEURAL EFFUSION IS NOT EXCLUDED. BORDERLINE CARDIOMEGALY. Impression dictated by: Amber Archibald M.D.10/27/2023 10:24 AM Dictation Location: [place] [address] Any impression(s) listed above is documentation that was entered by the reading physician into a diagnostic report(s) for Rachel Hollingsworth . I have reviewed the report(s) and am incorporating any findings in the treatment plan of this patient where applicable. A&P - Nephrology Assessment/Plan (1) Acute kidney injury superimposed on CKD: Assessment/Problem Details: MilligramsHe has LILIANA on CKD possibly due to the symptomatic anemia or cardiorenal in the setting of ACS. Patient never had workup for CKD however itsmost likely diabetic nephropathy. Baseline creatinine 2.1 mg/dL, was up to 3.7 currently stabilized at 3.4 mg/dL (2) CKD (chronic kidney disease) stage 4, GFR 15-29 ml/min: Assessment/Problem Details: He has a CKD due to the longstanding DM and HTN baseline serum creatinine is around 2.1 mg/dL. (3) Anemia: Assessment/Problem Details: He has anemia and was transfused 2 unit of PRBC. Stool positive for blood however the patient had previous colon surgery. GI recommend maximizing PPI only. (4) Type 2 diabetes mellitus with diabetic chronic kidney disease: Assessment/Problem Details: He has insulin-dependent type 2 diabetes mellitus was taking NovoLog at home. (5) Hypertensive chronic kidney disease with stage 1 through stage 4 chronic kidney disease, or unspecified chronic kidney disease: Assessment/Problem Details: Blood pressure is controlled. Valsartan was stopped on admission because of elevated creatinine. Plan * Patient is now requiring higher O2 via high flow. BNP is rising and chest x- ray showing worsening parenchymal changes * I will resume higher diuretics dose with Lasix drip at 10 mg/h * Patient had 3 units of packed RBCs. Hemoglobin is stable for the last 24 hours. Stool occult blood was positive for blood however there is no active bleeding. Plavix and aspirin are on hold. He has low iron stores on IV Ferrlecit. No plan for endoscopy at this point by GI * Valsartan and amlodipine are on hold because of lower blood pressure and LILIANA. * Patient was evaluated by cardiology and decision was made to continue conservative treatment only with no intervention despite elevated troponin because of the high risk of being on dialysis that the patient absolutely refuses. * Check renal function panel in a.m. . Documented By: Tom Kelly MD 10/27/231141 Signed By: <Electronically signed by Tom Kelly MD> 10/27/23 1148 [facility] Work Phone: 1(105) 622-601406-03-2024 Progress note Author Felice Lyons [facility] October 27, 2023 11:05am Note Date/Time October 27, 2023 11:06 am [facility] [address] [place] [address] Cardiology Progress Note Signed Patient: Rachel Hollingsworth SR MR#: [id number] : 1935 Acct:[id number] Age/Sex: 88 / M Adm Date: 4 Loc: Room: [address] [place] [address] Type: ADM IN Attending Dr: Francia Kirby MD Copies to: ~ Date of Service: 10/27/2023 Subjective Principal diagnosis: Chest pain/angina Interval history: Patient denies any chest pain but continued to require high flow oxygen, saturation is normal, blood pressure is normal, heart rate is normal. Renal function is severely compromised and the patient is following with nephrology. He made it very clear that he has no desire to pursue dialysis at any point in time. He knows that proceed invasively with cardiac catheterization and possible PCI with increase the chances of his kidney function deteriorating and requiring hemodialysis which he has no interest in. He verbalized his wishes ofconservative therapy for his coronary artery disease. I will switch him from a cumbersome schedule of Nitropatch to long-acting nitrates in the form of Imdur 120 mg daily. He need to go back on the Plavix due to coronary event but since he is in sinus rhythm, for the time being I will hold off on the Eliquis. As for his LV systolic dysfunction utilization the combination of hydralazine and nitrates may help to some degree since we cannot utilize standard therapy for heart failure utilizing RAAS inhibition. Jardiance should be discontinued due to advanced kidney disease and creatinine clearance less than 30 mL/min. Also spironolactone cannot be used due to advanced kidney disease. Nephrology is managing his diuretic therapy. Exam Physical Exam Vital Signs: Temp Pulse Resp BP Pulse Ox O2 Del Method O2 Flow Rate 97.5 F L 65 20 133/62 93 L High Flow 40 10/27/23 08:00 10/27/23 09:24 10/27/23 08:09 10/27/23 09:24 10/27/23 08:09 10/27/23 08:00 10/27/23 08:09 FiO2 70 10/27/23 08:09 Const General: comfortable and no acute distress Nutritional Appearance: obese Orientation: alert, awake and oriented x3 HEENT Head: normal to inspection Ears: hearing grossly normal bilaterally Nose: external nose normal Face and sinus: normal facial exam Eyes Conjunctivae: conjunctivae normal Pupils: PERRL Neck Neck: trachea midline and supple Neck mass: No Thyroid: thyroid normal Carotids: normal carotid upstroke Resp Effort & Inspection: normal respiratory effort Auscultation: clear to auscultation bilaterally Cardio Jugular venous pressure: no JVD Palpation: normal PMI Rate: regular rate Rhythm: regular rhythm Heart Sounds: S1 normal and S2 normal GI Inspection: normal to inspection Palpation: soft and no hepatosplenomegaly Extrem General: no clubbing, cyanosis or edema Objective Labs 10/27/23 04:38 10/27/23 04:38 Labs: Laboratory Results - last 24 hr 10/26/23 10/26/23 10/26/23 11:28 16:29 20:25 Corrected WBC RBC Hgb Hct MCV MCH MCHC RDW Plt Count MPV PHA Creatinine Clear Sodium Potassium Chloride Carbon Dioxide Anion Gap BUN Creatinine Est GFR (CKD-EPI) Glucose POC Glucose 218 228 219 POC Glucose Comment Calcium B-Natriuretic Peptide 10/27/23 10/27/23 10/27/23 04:38 07:30 08:06 Corrected WBC 8.9 Cancelled RBC 2.96 L Cancelled Hgb 9.0 L Cancelled Hct 26.4 L Cancelled MCV 89.2 Cancelled MCH 30.4 Cancelled MCHC 34.1 Cancelled RDW 14.6 Cancelled Plt Count 175 Cancelled MPV 9.4 Cancelled PHA Creatinine Clear 17.92 Sodium 135 L Potassium 3.9 Chloride 98 Carbon Dioxide 26.6 Anion Gap 14.3 BUN 84 H Creatinine 3.43 H Est GFR (CKD-EPI) 16.701 Glucose 143 H POC Glucose 135 POC Glucose Comment Glu2: cleaned meter Calcium 8.1 L B-Natriuretic Peptide 1983.0 H A&P - Cardiology (1) NSTEMI (non-ST elevated myocardial infarction): Assessment/Problem Details: Patient is currently with no angina. We discussed invasive versus noninvasive approach and due to advanced kidney disease and his unwillingness to proceed with dialysis he wishes for conservative therapy with no invasive cardiac workup Plan: Switch to long-acting nitrates, continue Plavix, continue beta-blockers and highintensity statin. Code(s): I21.4 - Non-ST elevation (NSTEMI) myocardial infarction (2) Acute kidney injury superimposed on CKD: Assessment/Problem Details: Kidney function is in stage IV and nephrology is following Plan: Conservative therapy, patient has no desire for dialysis, avoid nephrotoxic medications Code(s): N17.9 - Acute kidney failure, unspecified; N18.9 - Chronic kidney disease, unspecified (3) Paroxysmal atrial fibrillation: Assessment/Problem Details: Currently in sinus rhythm on amiodarone Plan: Reduce amiodarone dose down to 200 mg daily, no anticoagulation at the present time due to his risk of severe anemia Code(s): I48.0 - Paroxysmal atrial fibrillation (4) Hypothyroid: Assessment/Problem Details: On replacement therapy to be continued Plan: Continue thyroid supplements Code(s): E03.9 - Hypothyroidism, unspecified (5) Diabetes: Assessment/Problem Details: Presently stable Plan: Discontinue Jardiance due to advanced kidney disease Code(s): E11.9 - Type 2 diabetes mellitus without complications (6) Hyperlipidemia: Plan: Continue high intensity statin Code(s): E78.5 - Hyperlipidemia, unspecified (7) Systolic heart failure: Assessment/Problem Details: This is acute due to the non-ST elevation myocardial infarction EF 40-45% with severe inferior wall hypokinesis Plan: Discontinue Jardiance and Nitropaste, utilize Imdur 120 mg daily, continue Coreg, add hydralazine since standard therapy for heart failure cannot be utilized given the advanced kidney disease Code(s): I50.20 - Unspecified systolic (congestive) heart failure (8) Anemia: Assessment/Problem Details: Status post blood transfusion with no active bleeding presently Qualifiers: Anemia type: other cause Other causes of anemia: other cause, not classified Qualified Code(s): D64.89 - Other specified anemias Plan: Avoid Eliquis but continue Plavix Code(s): D64.9 - Anemia, unspecified Documented By: Felice Lyons MD, [facility] [id number] Signed By: <Electronically signed by [facility] Felice Lyons> 10/27/23 6495 [facility] Work Phone: 1(342) 482-755606-03-2024 Progress note Author Francia Kirby [facility] October 27, 2023 9:37am Note Date/Time October 27, 2023 9:37a m [facility] [address] [place] [address] Hospitalist Progress Note Signed Patient: Rachel Hollingsworth MR#: [id number] : 1935 Acct:[id number] Age/Sex: 88 / M Adm Date: 4 Loc: Room: [address] [place] [address] Type: ADM IN Attending Dr: Francia Kirby MD Copies to: ~ Date of Service: 10/27/2023 Subjective Subjective Narrative: Seen and examined NOt feeling well Still has SOB No Chest pain No fever Still on high flow O2 Exam Physical Exam Vital Signs: Temp Pulse Resp BP Pulse Ox O2 Del Method O2 Flow Rate 97.5 F L 65 24 133/62 93 L High Flow 40 10/27/23 08:00 10/27/23 09:24 10/27/23 08:00 10/27/23 09:24 10/27/23 08:00 10/27/23 08:00 10/27/23 08:00 FiO2 70 10/27/23 08:00 Narrative: General patient laying in bed in no acute distress alert awake oriented x3 HEENT PERRLA Neck supple no JVD no carotid bruit CVS S1-S2 regular rate and rhythm no murmur no gallop Chest clear to auscultation percussion Abdomen soft bowel sounds normoactive no rebound no guarding Extremities no stenosis no clubbing no edema Musculoskeletal exam normal no joint effusion Neurologic exam oriented x3 alert awake no focal left Psychiatry: Normal insight and judgment Skin: no rash or lesions Objective Lab Results 10/27/23 04:38 10/27/23 04:38 Meds Allergies and Active Meds Allergies codeine Allergy (Unknown, Verified 10/21/23 12:01) Nightmare, bad dreams acetaminophen [From Tylenol] Adverse Reaction (Verified 10/21/23 12:01) Nightmare Active Meds: Active Medications Generic Name Dose Route Start Last Admin Trade Name Freq PRN Reason Stop Dose Admin Acetaminophen 650 mg 10/20/23 11:05 10/25/23 21:57 Acetaminophen 325 Mg Tablet PO 10/19/24 11:04 650 mg Q6HR PRN Administration Pain Scale 1 - 3 or fever Amiodarone HCl 200 mg 10/22/23 21:00 10/27/23 08:08 Amiodarone 200 Mg Tablet PO 10/21/24 20:59 200 mg BID [facility] Administration Atorvastatin Calcium 80 mg 10/21/23 09:00 10/27/23 08:08 Atorvastatin 80 Mg Tablet PO 10/20/24 08:59 80 mg DAILY [facility] Administration Bumetanide 0.5 mg 10/24/23 16:00 10/27/23 08:08 Bumetanide 1 Mg Tablet PO 10/23/24 15:59 0.5 mg BID@0800,1600 [facility] Administration Carvedilol 25 mg 10/22/23 18:00 10/27/23 08:08 Carvedilol 25 Mg Tablet PO 10/21/24 17:59 25 mg BID.PC.BKFAST.SUPPER [facility] Administration Dextrose 0 gm 10/20/23 12:09 Dextrose 50% In Water 25 Gm/50 Ml Syringe IV-PUSH 10/19/24 12:08 PRN PRN Hypoglycemia Empagliflozin 10 mg 10/21/23 09:00 10/27/23 08:08 Empagliflozin 10 Mg Tablet PO 10/20/24 08:59 10 mg DAILY [facility] Administration Finasteride 5 mg 10/20/23 22:00 10/26/23 21:28 Finasteride 5 Mg Tablet PO 10/19/24 21:59 5 mg QHS [facility] Administration Fluoxetine HCl 10 mg 10/21/23 09:00 10/27/23 08:08 Fluoxetine 10 Mg Capsule PO 10/20/24 08:59 10 mg DAILY [facility] Administration Glucose 0 gm 10/20/23 12:09 Dextrose 40% Gel 15 Gm Tube PO 10/19/24 12:08 PRN PRN Hypoglycemia Hydralazine HCl 10 mg 10/20/23 11:10 Hydralazine 20 Mg/Ml Vial IV-PUSH 10/19/24 11:09 Q4H PRN Hypertension Magnesium Sulfate 2 gm in 50 mls @ 25 mls/hr 10/20/23 11:10 Magnesium Sulf 2gm-*Swfi* IV 10/19/24 11:09 DAILY PRN Magnesium Level < 1.5 Insulin Aspart 0 units 10/20/23 17:00 10/27/23 08:11 Insulin Aspart 300 Units/3 Ml Insuln.Pen SUBCUT 10/19/24 16:59 Not Given TID.WM.HS [facility] Protocol Insulin Aspart Prota 70%/Aspart 30% 26 units 10/20/23 16:30 10/27/23 08:10 Insulin Aspart Protamin/Aspart 300 Units/3 Ml Insuln.Pen SUBCUT 10/19/24 16:29 26 units BID.AC.BKFAST.SUPPER [facility] Administration Labetalol HCl 5 mg 10/20/23 10:55 Labetalol 100 Mg/20 Ml Vial IV-PUSH 10/19/24 10:54 Q4H PRN Hypertension Levothyroxine Sodium 75 mcg 10/21/23 06:30 10/27/23 05:34 Levothyroxine 75 Mcg Tablet PO 10/20/24 06:29 75 mcg DAILY.0630 [facility] Administration Melatonin 5 mg 10/20/23 11:10 10/26/23 21:27 Melatonin 5 Mg Tablet PO 10/19/24 11:09 5 mg QHS PRN Administration Insomnia Morphine Sulfate 2 mg 10/23/23 05:29 10/26/23 21:31 Morphine Sulfate 4 Mg/Ml Cartridge IV-PUSH 2 mg Q4H PRN Administration Pain Scale 8 - 10 Nitroglycerin 0.4 mg 10/20/23 10:48 10/24/23 01:59 Nitroglycerin 0.4 Mg Tab.Subl SUBLINGUAL 10/19/24 10:47 0.4 mg Q5M PRN Administration Chest Pain Nitroglycerin 0.5 inch 10/24/23 09:45 10/27/23 09:24 Nitroglycerin 2% Oint Packet TRANSDERML 10/23/24 09:44 0.5 inch Q6H [facility] Administration Ondansetron HCl 4 mg 10/20/23 11:05 Ondansetron 4 Mg/2 Ml Vial IV-PUSH 10/19/24 11:04 Q8H PRN Nausea And Vomiting Pantoprazole Sodium 40 mg 10/25/23 21:00 10/27/23 08:11 Pantoprazole 40 Mg Vial IV-PUSH 10/24/24 20:59 40 mg BID [facility] Administration Potassium Chloride 40 meq 10/20/23 11:10 Potassium Chloride Er 20 Meq Tab.Er.Prt PO 10/19/24 11:09 DAILY PRN Hypokalemia Sodium Chloride 10 ml 10/25/23 21:00 10/27/23 08:11 Sodium Chloride 0.9 % 10 Ml Vial.Pf INJECTION 10/24/24 20:59 10 ml BID [facility] Administration Sodium Chloride 10 ml 10/25/23 21:00 10/27/23 08:13 Sodium Chloride 0.9 % 10 Ml Syringe IV-PUSH 10/24/24 20:59 10 ml BID [facility] Administration A&P - Hospitalist Assessment/Plan (1) NSTEMI (non-ST elevated myocardial infarction): (2) CAD (coronary artery disease): (3) CKD (chronic kidney disease) stage 3, GFR 30-59 ml/min: Plan: LILIANA on CKD 4 (4) Diabetes: (5) Anemia in CKD (chronic kidney disease): (6) Hypertension: (7) Hypothyroid: (8) GERD (gastroesophageal reflux disease): Plan Non-STEMI Seen and examined Not feeling well Still complaining of shortness of breath with any minimal activities Still on high flow oxygen with FiO2 70% No fever Saturation 93% Has good urine output Kidney function is stable Nephrology is following Discussed with nephrology Patient agreed for dialysis if need Hemoglobin and hematocrit are stable Cardiorenal LILIANA Dialysis option was discussed with the patient Nephrology is following Discussed with nephrology Patient agreed for dialysis if needed Acute hypoxic respiratory failure On high flow ox Bumex p.o. twice Possible upper GI bleeding Plavix and Eliquis were held H/H are stable Protonix PO daily H/H in am GI consulted- no plan for scopes at this time Hypertension: Hold valsartan and continue with no Hyperlipidemia: Continue with Lipitor daily Diabetes type2: Insulin sliding scale/Jardiance Morbid obese: Lifestyle modification Documented By: Francia Kirby MD 10/27/23 0933 Signed By: <Electronically signed by Francia Kirby MD> 10/27/23 0937 [facility] Work Phone: 1(458) 111-687106-02-2024 Progress note [facility] October 26, 2023 12:53pm Note Date/Time October 26, 2023 12:53 pm [facility] [address] [place] [address] Nephrology Progress Note Signed Patient: Rachel Hollingsworth MR#: [id number] : 1935 Acct:[id number] Age/Sex: 88 / M Adm Date: 4 Loc: Room: [address] [place] [address] Type: ADM IN Attending Dr: Francia Kirby MD Copies to: ~ Date of Service: 10/26/2023 Subjective Subjective Narrative: This is a 88-year-old male with medical history of CAD s/p CABG in 2003, CKD, DM, HTN, HLD and A-fib presented to [place] with chest pain. He had a EKG showed diffuse ST depression. He was found to have anemia with hemoglobin 8 g/dL. He also found to have abnormal renal function with elevated serum creatinine 3 mg/dL and BUN 65 mg/dL. His chest x-ray showed cardiomegaly with interstitial infiltrate possibly due to CHF versus a multifocal pneumonia. White cell count was normal so no antibiotics were given. He was given blood transfusion and was transferred to the [facility] for further care. Patient reported to have a longstanding insulin-dependent type 2 diabetes mellitus and currently takes insulin. He denies any history of diabetic retinopathy. He reported that that he stopped following with his PCP and has not been seen close to a year. Upon review of his records, it appears the patient has a longstanding CKD and his serum creatinine was 2.1 mg in May 2023. He denies any evaluation by the contracts representative in the past. Nephrology is consulted for LILIANA on CKD. Interval history: Patient is awake with respiratory distress requiring high flow oxygen. He is getting oxygen off and on to have rest. Currently on 30 L/min oxygen. Denies chest pain. No fever or chills. Bumetanide was decreased to 0.5 mg twice a day for progressive rise of serum creatinine. Blood pressure borderline 104/63. Creatinine stabilized at 3.47 mg/dL. Patient's continue to have good urine output 2300 mL reported over the last 24 hours with -1600 mL. He had 1 dose of metolazone that was stopped Hemoglobin is better after 3 units of packed RBCs 9.4 g/dL. Patient was evaluated by GI and because of no evidence of active GI bleeding and the high risk of the patient, PPI was maximized with no plan for EGD or colonoscopy at this point. Exam Physical Exam Vital Signs: Temp Pulse Resp BP Pulse Ox O2 Del Method O2 Flow Rate 36.8 C 65 16 104/63 97 High Flow 40 10/26/23 11:30 10/26/23 11:30 10/26/23 11:30 10/26/23 11:30 10/26/23 11:30 10/26/23 11:30 10/26/23 11:30 FiO2 70 10/26/23 08:46 Narrative: Constitutional: Appears comfortable and not in distress HEENT: Mild pallor, no jaundice or cyanosis. Cardiovascular: RRR, normal S1-S2, no gallop or rub, No JVD Respiratory: Good bilateral air entry no wheezing or crackles Gastrointestinal: Soft, non tender, positive bowel sounds Extremities: Trace edema Skin: No rashes or bruises Neurology: Awake, alert, oriented ?3, No focal motor or sensory deficits Psych: Normal mood and affect Objective Intake and Output I&O: Intake & Output 10/23/23 10/24/23 10/25/23 10/26/23 23:59 23:59 23:59 23:59 Intake Total 770 / 770 750 / 750 1350 / 1350 400 / 400 Output Total 300 / 300 1550 / 1550 1250 / 1250 1600 / 1600 Balance 470 / 470 -800 / -800 100 / 100 -1200 / -1200 Weight 100 kg 97 kg 100.5 kg 98.8 kg Meds and Allergies Meds: Active Medications Acetaminophen (Acetaminophen 325 Mg Tablet) 650 mg PO Q6HR PRN PRN Reason: Pain Scale 1 - 3 or fever Stop: 10/19/24 11:04 Last Admin: 10/25/23 21:57 Dose: 650 mg Amiodarone HCl (Amiodarone 200 Mg Tablet) 200 mg PO BID [facility] Stop: 10/21/24 20:59 Last Admin: 10/26/23 08:12 Dose: 200 mg Atorvastatin Calcium (Atorvastatin 80 Mg Tablet) 80 mg PO DAILY [facility] Stop: 10/20/24 08:59 Last Admin: 10/26/23 08:12 Dose: 80 mg Bumetanide (Bumetanide 1 Mg Tablet) 0.5 mg PO BID@0800,1600 [facility] Stop: 10/23/24 15:59 Last Admin: 10/26/23 08:12 Dose: 0.5 mg Carvedilol (Carvedilol 25 Mg Tablet) 25 mg PO BID.PC.BKFAST.SUPPER [facility] Stop: 10/21/24 17:59 Last Admin: 10/26/23 08:12 Dose: 25 mg Dextrose (Dextrose 50% In Water 25 Gm/50 Ml Syringe) 0 gm IV-PUSH PRN PRN PRN Reason: Hypoglycemia Stop: 10/19/24 12:08 Empagliflozin (Empagliflozin 10 Mg Tablet) 10 mg PO DAILY [facility] Stop: 10/20/24 08:59 Last Admin: 10/26/23 08:12 Dose: 10 mg Finasteride (Finasteride 5 Mg Tablet) 5 mg PO QHS [facility] Stop: 10/19/24 21:59 Last Admin: 10/25/23 21:57 Dose: 5 mg Fluoxetine HCl (Fluoxetine 10 Mg Capsule) 10 mg PO DAILY [facility] Stop: 10/20/24 08:59 Last Admin: 10/26/23 08:12 Dose: 10 mg Glucose (Dextrose 40% Gel 15 Gm Tube) 0 gm PO PRN PRN PRN Reason: Hypoglycemia Stop: 10/19/24 12:08 Hydralazine HCl (Hydralazine 20 Mg/Ml Vial) 10 mg IV-PUSH Q4H PRN PRN Reason: Hypertension Stop: 10/19/24 11:09 Magnesium Sulfate (Magnesium Sulf 2gm-*Swfi*) 2 gm in 50 mls @ 25 mls/hr IV DAILY PRN PRN Reason: Magnesium Level < 1.5 Stop: 10/19/24 11:09 Insulin Aspart (Insulin Aspart 300 Units/3 Ml Insuln.Pen) 0 units SUBCUT TID.WM.[facility]; Protocol Stop: 10/19/24 16:59 Last Admin: 10/26/23 12:29 Dose: 4 units Insulin Aspart Prota 70%/Aspart 30% (Insulin Aspart Protamin/Aspart 300 Units/3 Ml Insuln.Pen) 26 units SUBCUT BID.AC.BKFAST.SUPPER [facility] Stop: 10/19/24 16:29 Last Admin: 10/26/23 08:13 Dose: 26 units Labetalol HCl (Labetalol 100 Mg/20 Ml Vial) 5 mg IV-PUSH Q4H PRN PRN Reason: Hypertension Stop: 10/19/24 10:54 Levothyroxine Sodium (Levothyroxine 75 Mcg Tablet) 75 mcg PO DAILY.0630 [facility] Stop: 10/20/24 06:29 Last Admin: 10/26/23 07:31 Dose: 75 mcg Melatonin (Melatonin 5 Mg Tablet) 5 mg PO QHS PRN PRN Reason: Insomnia Stop: 10/19/24 11:09 Last Admin: 10/25/23 21:57 Dose: 5 mg Morphine Sulfate (Morphine Sulfate 4 Mg/Ml Cartridge) 2 mg IV-PUSH Q4H PRN PRN Reason: Pain Scale 8 - 10 Last Admin: 10/23/23 10:22 Dose: 2 mg Nitroglycerin (Nitroglycerin 0.4 Mg Tab.Subl) 0.4 mg SUBLINGUAL Q5M PRN PRN Reason: Chest Pain Stop: 10/19/24 10:47 Last Admin: 10/24/23 01:59 Dose: 0.4 mg Nitroglycerin (Nitroglycerin 2% Oint Packet) 0.5 inch TRANSDERML Q6H NILSON Stop: 10/23/24 09:44 Last Admin: 10/26/23 07:31 Dose: 0.5 inch Ondansetron HCl (Ondansetron 4 Mg/2 Ml Vial) 4 mg IV-PUSH Q8H PRN PRN Reason: Nausea And Vomiting Stop: 10/19/24 11:04 Pantoprazole Sodium (Pantoprazole 40 Mg Vial) 40 mg IV-PUSH BID NILSON Stop: 10/24/24 20:59 Last Admin: 10/26/23 08:13 Dose: 40 mg Potassium Chloride (Potassium Chloride Er 20 Meq Tab.Er.Prt) 40 meq PO DAILY PRN PRN Reason: Hypokalemia Stop: 10/19/24 11:09 Sodium Chloride (Sodium Chloride 0.9 % 10 Ml Vial.Pf) 10 ml INJECTION BID NILSON Stop: 10/24/24 20:59 Last Admin: 10/26/23 08:13 Dose: 10 ml Sodium Chloride (Sodium Chloride 0.9 % 10 Ml Syringe) 10 ml IV-PUSH BID NILSON Stop: 10/24/24 20:59 Last Admin: 10/26/23 08:13 Dose: 10 ml Allergies codeine Allergy (Unknown, Verified 10/21/23 12:01) Nightmare, bad dreams acetaminophen [From Tylenol] Adverse Reaction (Verified 10/21/23 12:01) Nightmare Results - Nephrology Labs 10/26/23 04:57 10/26/23 04:57 Labs: 10/26/23 04:57 BUN 80 H Creatinine 3.47 H Radiology Impressions Impressions - last 24 hours: Any impression(s) listed above is documentation that was entered by the reading physician into a diagnostic report(s) for Rachel Hollingsworth SR. I have reviewed the report(s) and am incorporating any findings in the treatment plan of this patient where applicable. A&P - Nephrology Assessment/Plan (1) Acute kidney injury superimposed on CKD: Assessment/Problem Details: MilligramsHe has LILIANA on CKD possibly due to the symptomatic anemia or cardiorenal in the setting of ACS. Patient never had workup for CKD however itsmost likely diabetic nephropathy. Baseline creatinine 2.1 mg/dL, was up to 3.7 currently stabilized at 3.4 mg/dL (2) CKD (chronic kidney disease) stage 4, GFR 15-29 ml/min: Assessment/Problem Details: He has a CKD due to the longstanding DM and HTN baseline serum creatinine is around 2.1 mg/dL. (3) Anemia: Assessment/Problem Details: He has anemia and was transfused 2 unit of PRBC. Stool positive for blood however the patient had previous colon surgery. GI recommend maximizing PPI only. (4) Type 2 diabetes mellitus with diabetic chronic kidney disease: Assessment/Problem Details: He has insulin-dependent type 2 diabetes mellitus was taking NovoLog at home. (5) Hypertensive chronic kidney disease with stage 1 through stage 4 chronic kidney disease, or unspecified chronic kidney disease: Assessment/Problem Details: Blood pressure is controlled. Valsartan was stopped on admission because of elevated creatinine. Plan * Renal function stabilized with lower dose of bumetanide. He still has good urine output. Patient still has significant respiratory distress requiring high flow oxygen 30 L/min. * Patient had 3 units of packed RBCs. Hemoglobin up to 9.4 g/dL. Pulm was positive for blood however there is no active bleeding. Plavix and aspirin are on hold. He has low iron stores on IV Ferrlecit. No plan for endoscopy at this point by GI * Valsartan and amlodipine are on hold because of lower blood pressure and LILIANA. Renal function seems to be stabilizing however patient still has shortness of breath on high flow oxygen. Patient was evaluated by cardiology and decision was made to continue conservative treatment only with no intervention despite elevated troponin because of the high risk of being on dialysis that the patientabsolutely refuses. I had a long discussion yesterday and today with the patient about his clinical condition. He is scared to be on dialysis as his was in PD and she did poorly. CODE STATUS is still full code. Patient was advised that if renal function does not improve, he probably will need hemodialysis that he can try through tunneled hemodialysis catheter at least to improve his respiratory status and he can request stop dialysis if he does not like it. Patient is going to discuss the option of dialysis with his granddaughter whom he lives with. No indications for urgent dialysis at this point. He still on high flow oxygen however is not any worse and no hyperkalemia or acidosis. Urine output is increasing on bumetanide with negative balance. Documented By: Scott Delgado MD 10/26/23 1247 Signed By: <Electronically signed by MD Scott Delgado> 10/26/23 5133 [facility] Work Phone: 1(462) 835-808606-02-2024 Progress note Author Sidney Chapman [facility] October 26, 2023 11:46am Note Date/Time October 26, 2023 11:46 am [facility] [address] [place] [address] Cardiology Progress Note Signed Patient: Rachel Hollingsworth SR MR#: [id number] : 1935 Acct:[id number] Age/Sex: 88 / M Adm Date: 4 Loc: Room: [address] [place] [address] Type: ADM IN Attending Dr: Francia Kirby MD Copies to: ~ Date of Service: 10/26/2023 Subjective Principal diagnosis: Chest pain/angina Interval history: Patient states he feels a little better. He appears rested. Speaking in full sentences and does not appear dyspneic. I's and O's are negative and favorable. Exam Physical Exam Vital Signs: Temp Pulse Resp BP Pulse Ox O2 Del Method O2 Flow Rate 98.2 F 65 16 104/63 97 High Flow 40 10/26/23 11:30 10/26/23 11:30 10/26/23 11:30 10/26/23 11:30 10/26/23 11:30 10/26/23 11:30 10/26/23 11:30 FiO2 70 10/26/23 08:46 HEENT Head: normal to inspection Ears: hearing grossly normal bilaterally Nose: external nose normal and nares normal Face and sinus: normal facial exam Mouth: oral mucosae normal and tongue normal Eyes Conjunctivae: conjunctivae normal Sclera: sclerae normal Neck Neck: normal visual inspection Carotids: normal carotid upstroke Lymphatic: no lymphadenopathy noted Chest Chest palpation & inspection: normal inspection of the chest Resp Other: Diminished breath sounds particularly on the right, suspect effusion Cardio Rate: regular rate Rhythm: regular rhythm Heart Sounds: S1 normal and S2 normal GI Inspection: normal to inspection Palpation: soft Skin General: no rashes or lesions noted Neuro General: patient alert, patient awake and patient oriented x3 Cognition: normal cognition Motor: muscle tone normal throughout Sensory Exam: no sensory deficits noted Objective Labs 10/26/23 04:57 10/26/23 04:57 Labs: Laboratory Results - last 24 hr 10/23/23 10/25/23 10/25/23 12:56 11:46 16:50 Corrected WBC Uncorrected WBC Count RBC Hgb Hct MCV MCH MCHC RDW Plt Count MPV Neut % (Auto) Lymph % (Auto) [place] % (Auto) Eos % (Auto) Baso % (Auto) Nucleat RBC Rel Count Neut # (Auto) Lymph # (Auto) [place] # (Auto) Eos # (Auto) Baso # (Auto) PHA Creatinine Clear Sodium Potassium Chloride Carbon Dioxide Anion Gap BUN Creatinine Est GFR (CKD-EPI) Glucose POC Glucose 238 288 Calcium Crossmatch (AHG) See Detail 10/25/23 10/26/23 10/26/23 20:36 04:57 08:12 Corrected WBC 8.0 Uncorrected WBC Count 8.0 RBC 3.06 L Hgb 9.4 L Hct 27.1 L MCV 88.3 MCH 30.6 MCHC 34.6 RDW 14.9 H Plt Count 162 MPV 9.3 Neut % (Auto) 70.0 Lymph % (Auto) 14.8 [place] % (Auto) 10.0 Eos % (Auto) 4.5 Baso % (Auto) 0.7 Nucleat RBC Rel Count 0.2 Neut # (Auto) 5.6 Lymph # (Auto) 1.2 [place] # (Auto) 0.8 Eos # (Auto) 0.4 Baso # (Auto) 0.1 PHA Creatinine Clear 17.86 Sodium 133 L Potassium 3.6 Chloride 95 L Carbon Dioxide 25.5 Anion Gap 16.1 H BUN 80 H Creatinine 3.47 H Est GFR (CKD-EPI) 16.470 Glucose 118 H POC Glucose 249 148 Calcium 8.3 L Crossmatch (AHG) 10/26/23 11:28 Corrected WBC Uncorrected WBC Count RBC Hgb Hct MCV MCH MCHC RDW Plt Count MPV Neut % (Auto) Lymph % (Auto) [place] % (Auto) Eos % (Auto) Baso % (Auto) Nucleat RBC Rel Count Neut # (Auto) Lymph # (Auto) [place] # (Auto) Eos # (Auto) Baso # (Auto) PHA Creatinine Clear Sodium Potassium Chloride Carbon Dioxide Anion Gap BUN Creatinine Est GFR (CKD-EPI) Glucose POC Glucose 218 Calcium Crossmatch (AHG) A&P - Cardiology (1) NSTEMI (non-ST elevated myocardial infarction): Assessment/Problem Details: Patient stable. No postinfarct anginal discomfort now that he has had sufficient preload reduction and transfusion with hemoglobin approaching 10 mg/dL Code(s): I21.4 - Non-ST elevation (NSTEMI) myocardial infarction (2) CAD (coronary artery disease): Assessment/Problem Details: Longstanding with remote bypass. Stable at the moment with no heart failure or arrhythmia or angina Qualifiers: Coronary Disease-Associated Artery/Lesion type: [place] artery Three Affiliated vs. transplanted heart: [place] heart Associated angina: unspecified whether angina present Qualified Code(s): I25.10 - Atherosclerotic heart disease of [place] coronary artery without angina pectoris Code(s): I25.10 - Atherosclerotic heart disease of [place] coronary artery without angina pectoris (3) Anemia: Assessment/Problem Details: Gastrointestinal blood losses suspected. Multiple transfusions provided now stabilizing with the cessation of antiplatelet and antithrombotic therapy. Qualifiers: Anemia type: other cause Other causes of anemia: other cause, not classified Qualified Code(s): D64.89 - Other specified anemias Code(s): D64.9 - Anemia, unspecified (4) Hypertensive chronic kidney disease with stage 1 through stage 4 chronic kidney disease, or unspecified chronic kidney disease: Assessment/Problem Details: Severity of kidney dysfunction precludes angiographic evaluation without high risk for permanent renal failure necessitating dialysis. Code(s): I12.9 - Hypertensive chronic kidney disease with stage 1 through stage 4 chronickidney disease, or unspecified chronic kidney disease Plan Conservative management of coronary disease and volume overload. Continue same plan of care today. Will follow. Documented By: Sidney Chapman MD 1142 Signed By: <Electronically signed by MD Sidney Chapman> 10/26/23 1146 [facility] Work Phone: 1([phone]) 877-185806-02-2024 Progress note Author Francia Kirby [facility] October 26, 2023 11:12am Note Date/Time October 26, 2023 11:13 am [facility] [address] [place] [address] Hospitalist Progress Note Signed Patient: Rachel Hollingsworth SR MR#: [id number] : 1935 Acct:[id number] Age/Sex: 88 / M Adm Date: 4 Loc: 4 Room: [address] [place] [address] Type: ADM IN Attending Dr: Francia Kirby MD Copies to: ~ Date of Service: 10/26/2023 Subjective Subjective Narrative: Seen and examined Still has SOB On high flow O2 No chest pain No fever Exam Physical Exam Vital Signs: Temp Pulse Resp BP Pulse Ox O2 Del Method O2 Flow Rate 98.1 F 69 28 H 123/68 92 L High Flow 40 10/26/23 08:15 10/26/23 08:46 10/26/23 08:46 10/26/23 08:15 10/26/23 08:46 10/26/23 08:15 10/26/23 08:46 FiO2 70 10/26/23 08:46 Narrative: General patient laying in bed in no acute distress alert awake oriented x3 HEENT PERRLA Neck supple no JVD no carotid bruit CVS S1-S2 regular rate and rhythm no murmur no gallop Chest clear to auscultation percussion Abdomen soft bowel sounds normoactive no rebound no guarding Extremities no stenosis no clubbing no edema Musculoskeletal exam normal no joint effusion Neurologic exam oriented x3 alert awake no focal left Psychiatry: Normal insight and judgment Skin: no rash or lesions Objective Lab Results 10/26/23 04:57 10/26/23 04:57 Meds Allergies and Active Meds Allergies codeine Allergy (Unknown, Verified 10/21/23 12:01) Nightmare, bad dreams acetaminophen [From Tylenol] Adverse Reaction (Verified 10/21/23 12:01) Nightmare Active Meds: Active Medications Generic Name Dose Route Start Last Admin Trade Name Freq PRN Reason Stop Dose Admin Acetaminophen 650 mg 10/20/23 11:05 10/25/23 21:57 Acetaminophen 325 Mg Tablet PO 10/19/24 11:04 650 mg Q6HR PRN Administration Pain Scale 1 - 3 or fever Amiodarone HCl 200 mg 10/22/23 21:00 10/26/23 08:12 Amiodarone 200 Mg Tablet PO 10/21/24 20:59 200 mg BID NILSON Administration Atorvastatin Calcium 80 mg 10/21/23 09:00 10/26/23 08:12 Atorvastatin 80 Mg Tablet PO 10/20/24 08:59 80 mg DAILY NILSON Administration Bumetanide 0.5 mg 10/24/23 16:00 10/26/23 08:12 Bumetanide 1 Mg Tablet PO 10/23/24 15:59 0.5 mg BID@0800,1600 NILSON Administration Carvedilol 25 mg 10/22/23 18:00 10/26/23 08:12 Carvedilol 25 Mg Tablet PO 10/21/24 17:59 25 mg BID.PC.BKFAST.SUPPER NILSON Administration Dextrose 0 gm 10/20/23 12:09 Dextrose 50% In Water 25 Gm/50 Ml Syringe IV-PUSH 10/19/24 12:08 PRN PRN Hypoglycemia Empagliflozin 10 mg 10/21/23 09:00 10/26/23 08:12 Empagliflozin 10 Mg Tablet PO 10/20/24 08:59 10 mg DAILY NILSON Administration Finasteride 5 mg 10/20/23 22:00 10/25/23 21:57 Finasteride 5 Mg Tablet PO 10/19/24 21:59 5 mg QHS NILSON Administration Fluoxetine HCl 10 mg 10/21/23 09:00 10/26/23 08:12 Fluoxetine 10 Mg Capsule PO 10/20/24 08:59 10 mg DAILY NILSON Administration Glucose 0 gm 10/20/23 12:09 Dextrose 40% Gel 15 Gm Tube PO 10/19/24 12:08 PRN PRN Hypoglycemia Hydralazine HCl 10 mg 10/20/23 11:10 Hydralazine 20 Mg/Ml Vial IV-PUSH 10/19/24 11:09 Q4H PRN Hypertension Magnesium Sulfate 2 gm in 50 mls @ 25 mls/hr 10/20/23 11:10 Magnesium Sulf 2gm-*Swfi* IV 10/19/24 11:09 DAILY PRN Magnesium Level < 1.5 Insulin Aspart 0 units 10/20/23 17:00 10/26/23 08:12 Insulin Aspart 300 Units/3 Ml Insuln.Pen SUBCUT 10/19/24 16:59 Not Given TID.WM.HS [facility] Protocol Insulin Aspart Prota 70%/Aspart 30% 26 units 10/20/23 16:30 10/26/23 08:13 Insulin Aspart Protamin/Aspart 300 Units/3 Ml Insuln.Pen SUBCUT 10/19/24 16:29 26 units BID.AC.BKFAST.SUPPER NILSON Administration Labetalol HCl 5 mg 10/20/23 10:55 Labetalol 100 Mg/20 Ml Vial IV-PUSH 10/19/24 10:54 Q4H PRN Hypertension Levothyroxine Sodium 75 mcg 10/21/23 06:30 10/26/23 07:31 Levothyroxine 75 Mcg Tablet PO 10/20/24 06:29 75 mcg DAILY.0630 NILSON Administration Melatonin 5 mg 10/20/23 11:10 10/25/23 21:57 Melatonin 5 Mg Tablet PO 10/19/24 11:09 5 mg QHS PRN Administration Insomnia Morphine Sulfate 2 mg 10/23/23 05:29 10/23/23 10:22 Morphine Sulfate 4 Mg/Ml Cartridge IV-PUSH 2 mg Q4H PRN Administration Pain Scale 8 - 10 Nitroglycerin 0.4 mg 10/20/23 10:48 10/24/23 01:59 Nitroglycerin 0.4 Mg Tab.Subl SUBLINGUAL 10/19/24 10:47 0.4 mg Q5M PRN Administration Chest Pain Nitroglycerin 0.5 inch 10/24/23 09:45 10/26/23 07:31 Nitroglycerin 2% Oint Packet TRANSDERML 10/23/24 09:44 0.5 inch Q6H NILSON Administration Ondansetron HCl 4 mg 10/20/23 11:05 Ondansetron 4 Mg/2 Ml Vial IV-PUSH 10/19/24 11:04 Q8H PRN Nausea And Vomiting Pantoprazole Sodium 40 mg 10/25/23 21:00 10/26/23 08:13 Pantoprazole 40 Mg Vial IV-PUSH 10/24/24 20:59 40 mg BID NILSON Administration Potassium Chloride 40 meq 10/20/23 11:10 Potassium Chloride Er 20 Meq Tab.Er.Prt PO 10/19/24 11:09 DAILY PRN Hypokalemia Sodium Chloride 10 ml 10/25/23 21:00 10/26/23 08:13 Sodium Chloride 0.9 % 10 Ml Vial.Pf INJECTION 10/24/24 20:59 10 ml BID NILSON Administration Sodium Chloride 10 ml 10/25/23 21:00 10/26/23 08:13 Sodium Chloride 0.9 % 10 Ml Syringe IV-PUSH 10/24/24 20:59 10 ml BID NILSON Administration A&P - Hospitalist Assessment/Plan (1) NSTEMI (non-ST elevated myocardial infarction): (2) CAD (coronary artery disease): (3) CKD (chronic kidney disease) stage 3, GFR 30-59 ml/min: Plan: LILIANA on CKD 4 (4) Diabetes: (5) Anemia in CKD (chronic kidney disease): (6) Hypertension: (7) Hypothyroid: (8) GERD (gastroesophageal reflux disease): Plan Non-STEMI Seen and examined Clinically stable No chest pain c/o SOB On high flow O2 with fiO2 70% Saturation is 91% Aspirin and Plavix were held due to possible GI bleeding Kidney function is worsening Nephrology is following Plan for possible dialysis No plan for cardiac cath at this point Cardiorenal LILIANA Dialysis option was discussed with the patient Nephrology is following Discussed with nephrology Will revisit dialysis option tomorrow No indication for urgent dialysis today Acute hypoxic respiratory failure On high flow ox Bumex p.o. twice Possible upper GI bleeding Plavix and Eliquis were held H/H are stable Protonix PO daily H/H in am GI consulted- no plan for scopes at this time Hypertension: Hold valsartan and continue with no Hyperlipidemia: Continue with Lipitor daily Diabetes type2: Insulin sliding scale/Jardiance Morbid obese: Lifestyle modification Documented By: Francia Kirby MD 10/26/23 1104 Signed By: <Electronically signed by Francia Kirby MD> 10/26/23 1112 [facility] Work Phone: 1(681) 499-772406-02-2024 Progress note Author Brian Mc [facility] October 26, 2023 10:32am Note Date/Time October 26, 2023 10:32 am [facility] [address] [place] [address] Gastroenterology PN Signed Patient: Rachel Hollingsworth SR MR#: [id number] : 1935 Acct:[id number] Age/Sex: 88 / M Adm Date: 4 Loc: Room: [address] [place] [address] Type: ADM IN Attending Dr: Francia Kirby MD Copies to: MD Brian Call MD NO FAMILY PHYSICIAN~ Date of Service: 10/26/2023 Subjective Subjective Narrative: He continues to require high flow oxygen. Thinks his breathing may be getting alittle bit better. Denies any chest pain. He had a formed brown bowel movement last night. Exam Physical Exam Vital Signs: Temp Pulse Resp BP Pulse Ox O2 Del Method O2 Flow Rate 98.1 F 69 28 H 123/68 92 L High Flow 40 10/26/23 08:15 10/26/23 08:46 10/26/23 08:46 10/26/23 08:15 10/26/23 08:46 10/26/23 08:15 10/26/23 08:46 FiO2 70 10/26/23 08:46 Objective Allergies and Medications Allergies/Adverse Reactions: Allergies Allergy/AdvReac Type Severity Reaction Status Date / Time codeine Allergy Unknown Nightmare, Verified 10/21/23 12:01 bad dreams acetaminophen [From Tylenol] AdvReac Nightmare Verified 10/21/23 12:01 Active Meds: Active Medications Generic Name Dose Route Start Last Admin Trade Name Freq PRN Reason Stop Dose Admin Acetaminophen 650 mg 10/20/23 11:05 10/25/23 21:57 Acetaminophen 325 Mg Tablet PO 10/19/24 11:04 650 mg Q6HR PRN Administration Pain Scale 1 - 3 or fever Amiodarone HCl 200 mg 10/22/23 21:00 10/26/23 08:12 Amiodarone 200 Mg Tablet PO 10/21/24 20:59 200 mg BID NILSON Administration Atorvastatin Calcium 80 mg 10/21/23 09:00 10/26/23 08:12 Atorvastatin 80 Mg Tablet PO 10/20/24 08:59 80 mg DAILY NILSON Administration Bumetanide 0.5 mg 10/24/23 16:00 10/26/23 08:12 Bumetanide 1 Mg Tablet PO 10/23/24 15:59 0.5 mg BID@0800,1600 NILSON Administration Carvedilol 25 mg 10/22/23 18:00 10/26/23 08:12 Carvedilol 25 Mg Tablet PO 10/21/24 17:59 25 mg BID.PC.BKFAST.SUPPER NILSON Administration Dextrose 0 gm 10/20/23 12:09 Dextrose 50% In Water 25 Gm/50 Ml Syringe IV-PUSH 10/19/24 12:08 PRN PRN Hypoglycemia Empagliflozin 10 mg 10/21/23 09:00 10/26/23 08:12 Empagliflozin 10 Mg Tablet PO 10/20/24 08:59 10 mg DAILY NILSON Administration Finasteride 5 mg 10/20/23 22:00 10/25/23 21:57 Finasteride 5 Mg Tablet PO 10/19/24 21:59 5 mg QHS NILSON Administration Fluoxetine HCl 10 mg 10/21/23 09:00 10/26/23 08:12 Fluoxetine 10 Mg Capsule PO 10/20/24 08:59 10 mg DAILY NILSON Administration Glucose 0 gm 10/20/23 12:09 Dextrose 40% Gel 15 Gm Tube PO 10/19/24 12:08 PRN PRN Hypoglycemia Hydralazine HCl 10 mg 10/20/23 11:10 Hydralazine 20 Mg/Ml Vial IV-PUSH 10/19/24 11:09 Q4H PRN Hypertension Magnesium Sulfate 2 gm in 50 mls @ 25 mls/hr 10/20/23 11:10 Magnesium Sulf 2gm-*Swfi* IV 10/19/24 11:09 DAILY PRN Magnesium Level < 1.5 Insulin Aspart 0 units 10/20/23 17:00 10/26/23 08:12 Insulin Aspart 300 Units/3 Ml Insuln.Pen SUBCUT 10/19/24 16:59 Not Given TID.WM.HS [facility] Protocol Insulin Aspart Prota 70%/Aspart 30% 26 units 10/20/23 16:30 10/26/23 08:13 Insulin Aspart Protamin/Aspart 300 Units/3 Ml Insuln.Pen SUBCUT 10/19/24 16:29 26 units BID.AC.BKFAST.SUPPER NILSON Administration Labetalol HCl 5 mg 10/20/23 10:55 Labetalol 100 Mg/20 Ml Vial IV-PUSH 10/19/24 10:54 Q4H PRN Hypertension Levothyroxine Sodium 75 mcg 10/21/23 06:30 10/26/23 07:31 Levothyroxine 75 Mcg Tablet PO 10/20/24 06:29 75 mcg DAILY.0630 NILSON Administration Melatonin 5 mg 10/20/23 11:10 10/25/23 21:57 Melatonin 5 Mg Tablet PO 10/19/24 11:09 5 mg QHS PRN Administration Insomnia Morphine Sulfate 2 mg 10/23/23 05:29 10/23/23 10:22 Morphine Sulfate 4 Mg/Ml Cartridge IV-PUSH 2 mg Q4H PRN Administration Pain Scale 8 - 10 Nitroglycerin 0.4 mg 10/20/23 10:48 10/24/23 01:59 Nitroglycerin 0.4 Mg Tab.Subl SUBLINGUAL 10/19/24 10:47 0.4 mg Q5M PRN Administration Chest Pain Nitroglycerin 0.5 inch 10/24/23 09:45 10/26/23 07:31 Nitroglycerin 2% Oint Packet TRANSDERML 10/23/24 09:44 0.5 inch Q6H NILSON Administration Ondansetron HCl 4 mg 10/20/23 11:05 Ondansetron 4 Mg/2 Ml Vial IV-PUSH 10/19/24 11:04 Q8H PRN Nausea And Vomiting Pantoprazole Sodium 40 mg 10/25/23 21:00 10/26/23 08:13 Pantoprazole 40 Mg Vial IV-PUSH 10/24/24 20:59 40 mg BID NILSON Administration Potassium Chloride 40 meq 10/20/23 11:10 Potassium Chloride Er 20 Meq Tab.Er.Prt PO 10/19/24 11:09 DAILY PRN Hypokalemia Sodium Chloride 10 ml 10/25/23 21:00 10/26/23 08:13 Sodium Chloride 0.9 % 10 Ml Vial.Pf INJECTION 10/24/24 20:59 10 ml BID NILSON Administration Sodium Chloride 10 ml 10/25/23 21:00 10/26/23 08:13 Sodium Chloride 0.9 % 10 Ml Syringe IV-PUSH 10/24/24 20:59 10 ml BID NILSON Administration A&P - Gastroenterology Assessment/Plan (1) Anemia: Qualifiers: Anemia type: other cause Other causes of anemia: other cause, not classified Qualified Code(s): D64.89 - Other specified anemias (2) Hypertensive chronic kidney disease with stage 1 through stage 4 chronic kidney disease, or unspecified chronic kidney disease: (3) Anemia: (4) CKD (chronic kidney disease) stage 4, GFR 15-29 ml/min: (5) Chronic anticoagulation: Plan His elevated BUN/creatinine ratio is not consistent with proximal upper GI bleeding pathology, ratio is only 22-23. To localize significant proximal upperGI bleeding this ratio should be greater than 36. His anemia is multifactorial. 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 He is not a candidate for deep enteroscopy due to his cardiopulmonary risk factors. He has a component of anemia of chronic disease. He has a colorectal anastomosis from sigmoidectomy so FOBT's are always likely to be positive. Additionally he has an inadequate bone marrow response, reticulocyte count is hypoproliferative. He is not having any overt GI bleeding at this time. He does not have any significant risk factors for PUD and is on daily PPIin the outpatient setting. -He is extremely high risk for anesthesia, I would only recommend endoscopic evaluation if he were having overt life-threatening GI bleeding. -I would recommend lifelong high-dose PPIs given his cardiopulmonary risk factors, significant GI bleeding in him would be extremely complicated and life- threatening. -Continue to avoid NSAIDs. -Continue risk-benefit discussion about anticoagulation or antiplatelet use given his cardiopulmonary risk factors, if he were to have overt GI bleeding. Thank you for this consult, little further to add from a GI standpoint. I will sign off at this time. If patient develops overt bleeding please reconsult our service. Documented By: Brian Mc MD 10/26/23 1024 Signed By: <Electronically signed by Brian Mc MD> 10/26/23 1032 [facility] Work Phone: 1(486) 225-345306-01-2024 Progress note Author Scott Delgado [facility] October 25, 2023 3:02pm Note Date/Time October 25, 2023 3:03p [facility] [address] [place] [address] Nephrology Progress Note Signed Patient: Rachel Hollingsworth MR#: [id number] : 1935 Acct:[id number] Age/Sex: 88 / M Adm Date: 4 Loc: 4 Room: 5V9544-2 Type: ADM IN Attending Dr: Norman Figueroa DO Copies to: ~ Date of Service: 10/25/2023 Subjective Subjective Narrative: This is a 88-year-old male with medical history of CAD s/p CABG in 2003, CKD, DM, HTN, HLD and A-fib presented to [place] with chest pain. He had a EKG showed diffuse ST depression. He was found to have anemia with hemoglobin 8 g/dL. He also found to have abnormal renal function with elevated serum creatinine 3 mg/dL and BUN 65 mg/dL. His chest x-ray showed cardiomegaly with interstitial infiltrate possibly due to CHF versus a multifocal pneumonia. White cell count was normal so no antibiotics were given. He was given blood transfusion and was transferred to the [facility] for further care. Patient reported to have a longstanding insulin-dependent type 2 diabetes mellitus and currently takes insulin. He denies any history of diabetic retinopathy. He reported that that he stopped following with his PCP and has not been seen close to a year. Upon review of his records, it appears the patient has a longstanding CKD and his serum creatinine was 2.1 mg in May 2023. He denies any evaluation by the contracts representative in the past. Nephrology is consulted for LILIANA on CKD. Interval history: Patient is awake with no complaints however he still requiring high flow oxygen. No chest pain. Blood pressure stable 120/74. Bumetanide was decreased to 0.5 mg twice a day asserum creatinine has increased with aggressive diuresis from CHF. Urine output 900 mL yesterday. Serum creatinine and BUN slightly up however seems to be stabilizing, BUN 76 andcreatinine 3.53. No hyperkalemia or acidosis. Hemoglobin is better after 2 units of packed RBCs 8.2 g/dL. Patient was evaluated by GI and because of no evidence of active GI bleeding and the high risk of the patient, BBI was maximized with no plan for EGD or colonoscopy at this point. Exam Physical Exam Vital Signs: Temp Pulse Resp BP Pulse Ox O2 Del Method O2 Flow Rate 36.4 C 64 20 120/74 93 L High Flow 30 10/25/23 13:25 10/25/23 13:25 10/25/23 13:25 10/25/23 13:25 10/25/23 13:25 10/25/23 08:45 10/25/23 11:45 FiO2 75 10/25/23 11:45 Narrative: Constitutional: Appears comfortable and not in distress HEENT: Mild pallor, no jaundice or cyanosis. Cardiovascular: RRR, normal S1-S2, no gallop or rub, No JVD Respiratory: Good bilateral air entry no wheezing or crackles Gastrointestinal: Soft, non tender, positive bowel sounds Extremities: Trace edema Skin: No rashes or bruises Neurology: Awake, alert, oriented ?3, No focal motor or sensory deficits Psych: Normal mood and affect Objective Intake and Output I&O: Intake & Output 10/22/23 10/23/23 10/24/23 10/25/23 23:59 23:59 23:59 23:59 Intake Total 1960 / 1960 770 / 770 750 / 750 700 / 700 Output Total 1750 / 1750 300 / 300 1550 / 1550 500 / 500 Balance 210 / 210 470 / 470 -800 / -800 200 / 200 Weight 97.2 kg 100 kg 97 kg 100.5 kg Meds and Allergies Meds: Active Medications Acetaminophen (Acetaminophen 325 Mg Tablet) 650 mg PO Q6HR PRN PRN Reason: Pain Scale 1 - 3 or fever Stop: 10/19/24 11:04 Last Admin: 10/24/23 22:21 Dose: 650 mg Amiodarone HCl (Amiodarone 200 Mg Tablet) 200 mg PO BID [facility] Stop: 10/21/24 20:59 Last Admin: 10/25/23 08:46 Dose: 200 mg Atorvastatin Calcium (Atorvastatin 80 Mg Tablet) 80 mg PO DAILY [facility] Stop: 10/20/24 08:59 Last Admin: 10/25/23 08:46 Dose: 80 mg Bumetanide (Bumetanide 1 Mg Tablet) 0.5 mg PO BID@0800,1600 [facility] Stop: 10/23/24 15:59 Last Admin: 10/25/23 08:46 Dose: 0.5 mg Carvedilol (Carvedilol 25 Mg Tablet) 25 mg PO BID.PC.BKFAST.SUPPER [facility] Stop: 10/21/24 17:59 Last Admin: 10/25/23 08:46 Dose: 25 mg Dextrose (Dextrose 50% In Water 25 Gm/50 Ml Syringe) 0 gm IV-PUSH PRN PRN PRN Reason: Hypoglycemia Stop: 10/19/24 12:08 Empagliflozin (Empagliflozin 10 Mg Tablet) 10 mg PO DAILY [facility] Stop: 10/20/24 08:59 Last Admin: 10/25/23 08:47 Dose: 10 mg Finasteride (Finasteride 5 Mg Tablet) 5 mg PO QHS [facility] Stop: 10/19/24 21:59 Last Admin: 10/24/23 22:18 Dose: 5 mg Fluoxetine HCl (Fluoxetine 10 Mg Capsule) 10 mg PO DAILY [facility] Stop: 10/20/24 08:59 Last Admin: 10/25/23 08:46 Dose: 10 mg Glucose (Dextrose 40% Gel 15 Gm Tube) 0 gm PO PRN PRN PRN Reason: Hypoglycemia Stop: 10/19/24 12:08 Hydralazine HCl (Hydralazine 20 Mg/Ml Vial) 10 mg IV-PUSH Q4H PRN PRN Reason: Hypertension Stop: 10/19/24 11:09 Magnesium Sulfate (Magnesium Sulf 2gm-*Swfi*) 2 gm in 50 mls @ 25 mls/hr IV DAILY PRN PRN Reason: Magnesium Level < 1.5 Stop: 10/19/24 11:09 Sodium Chloride (0.9 % Sodium Chloride) 500 mls @ 20 mls/hr IV PROTOCOL PRN PRN Reason: BLOOD TRANSFUSION Stop: 10/25/23 18:43 Sodium Chloride (0.9 % Sodium Chloride) 500 mls @ 20 mls/hr IV PROTOCOL PRN PRN Reason: BLOOD TRANSFUSION Stop: 10/26/23 09:24 Insulin Aspart (Insulin Aspart 300 Units/3 Ml Insuln.Pen) 0 units SUBCUT TID.WM.HS [facility]; Protocol Stop: 10/19/24 16:59 Last Admin: 10/25/23 12:06 Dose: 4 units Insulin Aspart Prota 70%/Aspart 30% (Insulin Aspart Protamin/Aspart 300 Units/3 Ml Insuln.Pen) 26 units SUBCUT BID.AC.BKFAST.SUPPER [facility] Stop: 10/19/24 16:29 Last Admin: 10/25/23 10:36 Dose: Not Given Labetalol HCl (Labetalol 100 Mg/20 Ml Vial) 5 mg IV-PUSH Q4H PRN PRN Reason: Hypertension Stop: 10/19/24 10:54 Levothyroxine Sodium (Levothyroxine 75 Mcg Tablet) 75 mcg PO DAILY.629 [facility] Stop: 10/20/24 06:29 Last Admin: 10/25/23 06:11 Dose: 75 mcg Melatonin (Melatonin 5 Mg Tablet) 5 mg PO QHS PRN PRN Reason: Insomnia Stop: 10/19/24 11:09 Last Admin: 10/24/23 22:21 Dose: 5 mg Morphine Sulfate (Morphine Sulfate 4 Mg/Ml Cartridge) 2 mg IV-PUSH Q4H PRN PRN Reason: Pain Scale 8 - 10 Last Admin: 10/23/23 10:22 Dose: 2 mg Nitroglycerin (Nitroglycerin 0.4 Mg Tab.Subl) 0.4 mg SUBLINGUAL Q5M PRN PRN Reason: Chest Pain Stop: 10/19/24 10:47 Last Admin: 10/24/23 01:59 Dose: 0.4 mg Nitroglycerin (Nitroglycerin 2% Oint Packet) 0.5 inch TRANSDERML Q6H [facility] Stop: 10/23/24 09:44 Last Admin: 10/25/23 12:05 Dose: 0.5 inch Ondansetron HCl (Ondansetron 4 Mg/2 Ml Vial) 4 mg IV-PUSH Q8H PRN PRN Reason: Nausea And Vomiting Stop: 10/19/24 11:04 Pantoprazole Sodium (Pantoprazole 40 Mg Vial) 40 mg IV-PUSH BID [facility] Stop: 10/24/24 20:59 Potassium Chloride (Potassium Chloride Er 20 Meq Tab.Er.Prt) 40 meq PO DAILY PRN PRN Reason: Hypokalemia Stop: 10/19/24 11:09 Sodium Chloride (Sodium Chloride 0.9 % 10 Ml Vial.Pf) 10 ml INJECTION BID [facility] Stop: 10/24/24 20:59 Sodium Chloride (Sodium Chloride 0.9 % 10 Ml Syringe) 10 ml IV-PUSH BID [facility] Stop: 10/24/24 20:59 Allergies codeine Allergy (Unknown, Verified 10/21/23 12:01) Nightmare, bad dreams acetaminophen [From Tylenol] Adverse Reaction (Verified 10/21/23 12:01) Nightmare Results - Nephrology Labs 10/25/23 04:32 10/25/23 05:38 Labs: 10/25/23 04:32 BUN 76 H Creatinine 3.53 H Phosphorus 5.7 H Albumin 3.1 L Radiology Impressions Impressions - last 24 hours: Impressions Chest X-Ray 10/24/23 11:53 IMPRESSION: Mild atelectatic and/or infiltrative changes are seen bilaterally. Interstitial changes have improved. There is no sizable effusion or pneumothorax. There is endplate spurring. There is also mild degenerative change at the left shoulder. Impression dictated by: Carlton Simon Jr., D.O.10/24/2023 3:16 PM Dictation Location: [place] [address] Any impression(s) listed above is documentation that was entered by the reading physician into a diagnostic report(s) for Rachel Hollingsworth . I have reviewed the report(s) and am incorporating any findings in the treatment plan of this patient where applicable. A&P - Nephrology Assessment/Plan (1) Acute kidney injury superimposed on CKD: Assessment/Problem Details: MilligramsHe has LILIANA on CKD possibly due to the symptomatic anemia or cardiorenal in the setting of ACS. Patient never had workup for CKD however itsmost likely diabetic nephropathy. Baseline creatinine 2.1 mg/dL currently up to3.3 mg/dl (2) CKD (chronic kidney disease) stage 4, GFR 15-29 ml/min: Assessment/Problem Details: He has a CKD due to the longstanding DM and HTN baseline serum creatinine is around 2.1 mg/dL. (3) Anemia: Assessment/Problem Details: He has anemia and was transfused 2 unit of PRBC. Stool positive for blood however the patient had previous colon surgery. GI recommend maximizing PPI only. (4) Type 2 diabetes mellitus with diabetic chronic kidney disease: Assessment/Problem Details: He has insulin-dependent type 2 diabetes mellitus was taking NovoLog at home. (5) Hypertensive chronic kidney disease with stage 1 through stage 4 chronic kidney disease, or unspecified chronic kidney disease: Assessment/Problem Details: Blood pressure is controlled. Valsartan was stopped on admission because of elevated creatinine. Plan * Renal functions continue to get worse however serum creatinine seems to be plateaued. Bumetanide was decreased to 0.5 milligrams twice a day and metolazone is on hold. Patient still has hypoxemia. He has trace edema. * Patient had 2 units of packed RBCs. Hemoglobin up to 8.2 g/dL. * Patient has stool positive occult blood. Plavix and aspirin are on hold. He has low iron stores. Continue IV Ferrlecit 250 mg x 4 doses. * Valsartan and amlodipine are on hold because of lower blood pressure and LILIANA. Close the patient had elevated troponin admission, he is high risk for cardiac cath considering his multiple medical problems. Patient was evaluated by cardiology and decision was made to continue conservative treatment only. I hada long discussion with the patient about his clinical condition. He is scared to be on dialysis as his was in PD and she did probably. CODE STATUS is still full code. Patient was advised that if renal function does not improve, he probably will need hemodialysis that he can try through tunneled hemodialysiscatheter at least to improve his respiratory status and he can request stop dialysis if he does not like it. Patient is going to discuss the option of dialysis with his granddaughter whom he lives with. Documented By: Scott Delgado MD 10/25/23 1451 Signed By: <Electronically signed by MD Scott Delgado> 10/25/23 8347 [facility] Work Phone: 1(653) 986-520006-01-2024 Progress note Author Sidney Chapman [facility] October 25, 2023 1:53pm Note Date/Time October 25, 2023 1:53p m [facility] [address] [place] [address] Cardiology Progress Note Signed Patient: Rachel Hollingsworth SR MR#: [id number] : 1935 Acct:[id number] Age/Sex: 88 / M Adm Date: 4 Loc: Room: [address] [place] [address] Type: ADM IN Attending Dr: Norman Figueroa DO Copies to: ~ Date of Service: 10/25/2023 Subjective Principal diagnosis: Chest pain/angina Interval history: No cardiac complaints. Specifically he denies chest pain or angina. Some shortness of breath but it is on the basis of fluid and/or volume overload. Patient continues to have a falling hemoglobin and hematocrit despite the cessation of antithrombotic therapy. He is being treated for upper GI bleed. The elevation in BUN may be a little bit out of proportion to his intravascular volume status and might ultimately suggest upper GI bleeding. If this is the case he will hopefully respond to the aggressive PPI therapy that has been implemented. I have discussed again with him his coronary artery disease. I advised against angiographic evaluation for all the reasons in my previous notes. The patient appears to understand and accept the recommendation. Exam Physical Exam Vital Signs: Temp Pulse Resp BP Pulse Ox O2 Del Method O2 Flow Rate 97.6 F 63 18 112/71 92 L High Flow 30 10/25/23 11:35 10/25/23 12:05 10/25/23 11:45 10/25/23 12:05 10/25/23 11:45 10/25/23 08:45 10/25/23 11:45 FiO2 75 10/25/23 11:45 HEENT Head: normal to inspection Ears: hearing grossly normal bilaterally Nose: external nose normal and nares normal Face and sinus: normal facial exam Mouth: oral mucosae normal and tongue normal Eyes Conjunctivae: conjunctivae normal Sclera: sclerae normal Neck Neck: normal visual inspection Carotids: normal carotid upstroke Lymphatic: no lymphadenopathy noted Chest Chest palpation & inspection: normal inspection of the chest Resp Other: Diminished breath sounds Cardio Rate: regular rate Rhythm: regular rhythm Heart Sounds: S1 normal and S2 normal GI Inspection: normal to inspection Palpation: soft Skin General: no rashes or lesions noted Neuro General: patient alert, patient awake and patient oriented x3 Cognition: normal cognition Motor: muscle tone normal throughout Sensory Exam: no sensory deficits noted Objective Labs 10/25/23 04:32 10/25/23 05:38 Labs: Laboratory Results - last 24 hr 10/23/23 10/24/23 10/24/23 12:56 16:47 16:56 Corrected WBC 7.5 Uncorrected WBC Count 7.5 RBC 2.45 L Hgb 7.4 L Hct 22.0 L MCV 89.9 MCH 30.4 MCHC 33.8 RDW 15.0 H Plt Count 148 L MPV 9.2 Neut % (Auto) 70.6 Lymph % (Auto) 14.3 [place] % (Auto) 13.5 Eos % (Auto) 0.8 Baso % (Auto) 0.8 Nucleat RBC Rel Count 0.1 Neut # (Auto) 5.3 Lymph # (Auto) 1.1 [place] # (Auto) 1.0 H Eos # (Auto) 0.1 Baso # (Auto) 0.1 PHA Creatinine Clear Sodium Potassium Chloride Carbon Dioxide Anion Gap BUN Creatinine Est GFR (CKD-EPI) Glucose POC Glucose 193 Calcium Phosphorus Albumin Blood Type A Positive Antibody Screen Negative Crossmatch ([facility]G) See Detail 10/24/23 10/25/23 10/25/23 20:23 04:32 05:38 Corrected WBC 8.7 Uncorrected WBC Count 8.7 RBC 2.67 L Hgb 8.2 L Hct 23.9 L MCV 89.7 MCH 30.6 MCHC 34.1 RDW 15.0 H Plt Count 140 L MPV 9.2 Neut % (Auto) 65.8 Lymph % (Auto) 16.2 [place] % (Auto) 13.0 Eos % (Auto) 4.3 Baso % (Auto) 0.7 Nucleat RBC Rel Count 0.1 Neut # (Auto) 5.7 Lymph # (Auto) 1.4 [place] # (Auto) 1.1 H Eos # (Auto) 0.4 Baso # (Auto) 0.1 PHA Creatinine Clear 17.26 Sodium 134 L Potassium 3.8 Chloride 98 Carbon Dioxide 25.4 Anion Gap TNP BUN 76 H Creatinine 3.53 H Est GFR (CKD-EPI) 16.135 Glucose 65 L POC Glucose 152 Calcium 8.1 L Phosphorus 5.7 H Albumin 3.1 L Blood Type Antibody Screen Crossmatch ([facility]) 10/25/23 10/25/23 10/25/23 06:11 07:21 11:46 Corrected WBC Uncorrected WBC Count RBC Hgb Hct MCV MCH MCHC RDW Plt Count MPV Neut % (Auto) Lymph % (Auto) [place] % (Auto) Eos % (Auto) Baso % (Auto) Nucleat RBC Rel Count Neut # (Auto) Lymph # (Auto) [place] # (Auto) Eos # (Auto) Baso # (Auto) PHA Creatinine Clear Sodium Potassium Chloride Carbon Dioxide Anion Gap BUN Creatinine Est GFR (CKD-EPI) Glucose POC Glucose 112 118 238 Calcium Phosphorus Albumin Blood Type Antibody Screen Crossmatch ([facility]) A&P - Cardiology (1) NSTEMI (non-ST elevated myocardial infarction): Assessment/Problem Details: Stable with no postinfarct angina heart failure or arrhythmia. I advocated against angiographic evaluation and/or intervention. One of the complicating factors of PCI would be the necessity of DAPT. I believe said therapy would prolong and/or potentiate worsening gastrointestinal bleeding from which the patient has been suffering this admission. Because of this I feel angiographic evaluation and intervention to be contraindicated. Obviously I am also concerned about acute renal failure caused by contrast exposure. This also creates a relative if not absolute contraindication to angiographic evaluation Code(s): I21.4 - Non-ST elevation (NSTEMI) myocardial infarction (2) CKD (chronic kidney disease) stage 4, GFR 15-29 ml/min: Assessment/Problem Details: Severe, worsening in hospital setting despite the lack of exposure to contrast material. I reluctant to do so for fear it will cause permanent renal failure necessitating dialysis Code(s): N18.4 - Chronic kidney disease, stage 4 (severe) (3) Anemia: Assessment/Problem Details: Continued anemia. Hemoglobin and hematocrit continue to fall. This would suggest active blood loss. Other specialties are addressing and managing this. Elevated BUN might suggest upper GI bleeding source Qualifiers: Anemia type: other cause Other causes of anemia: other cause, not classified Qualified Code(s): D64.89 - Other specified anemias Code(s): D64.9 - Anemia, unspecified (4) Paroxysmal atrial fibrillation: Assessment/Problem Details: Restored and maintained sinus rhythm with amiodarone. This mitigates most of the stroke risk associated with paroxysms of atrial fibrillation. Continue amiodarone to prevent recurrent atrial fibrillation. Code(s): I48.0 - Paroxysmal atrial fibrillation Plan Medical regimen as ordered. Will follow Documented By: Sidney Chapman MD [id number] Signed By: <Electronically signed by MD Sidney Chapman> 10/25/23 5492 [facility] Work Phone: 1([phone]) 340-662706-01-2024 Progress note Author Norman Figueroa [facility] October 25, 2023 12:06pm Note Date/Time October 25, 2023 12:06 pm [facility] [address] [place] [address] Hospitalist Progress Note Signed Patient: Rachel Hollingsworth MR#: [id number] : 1935 Acct:[id number] Age/Sex: 88 / M Adm Date: 4 Loc: Room: [address] [place] [address] Type: ADM IN Attending Dr: Norman Figueroa DO Copies to: ~ Date of Service: 10/25/2023 Subjective Subjective Narrative: Seen and examined. slight worsening of Cr although plateu'ing. no new symptoms. Required 2 units PRBC since last night, no signs or symptoms of bleeding. cardiology goal is >10 for Hb. Exam Physical Exam Vital Signs: Temp Pulse Resp BP Pulse Ox O2 Del Method O2 Flow Rate 97.6 F 64 22 115/70 93 L High Flow 30 10/25/23 11:05 10/25/23 11:05 10/25/23 11:05 10/25/23 11:05 10/25/23 11:05 10/25/23 08:45 10/25/23 08:45 FiO2 70 10/25/23 08:45 Narrative: generally- NAD, on high flow nasal cannula 30 L/min with 70% FiO2. Generally weak HEENT- head atraumatic normocephalic Heart regular rate Lungs diminished bilaterally, no increased respiratory effort Abdomen soft nontender, bowel sound present Neurologically alert and oriented, nonfocal Skin no rash Extremity positive edema, pulses and Objective Lab Results 10/25/23 04:32 10/25/23 05:38 Meds Allergies and Active Meds Allergies codeine Allergy (Unknown, Verified 10/21/23 12:01) Nightmare, bad dreams acetaminophen [From Tylenol] Adverse Reaction (Verified 10/21/23 12:01) Nightmare Active Meds: Active Medications Generic Name Dose Route Start Last Admin Trade Name Freq PRN Reason Stop Dose Admin Acetaminophen 650 mg 10/20/23 11:05 10/24/23 22:21 Acetaminophen 325 Mg Tablet PO 10/19/24 11:04 650 mg Q6HR PRN Administration Pain Scale 1 - 3 or fever Amiodarone HCl 200 mg 10/22/23 21:00 10/25/23 08:46 Amiodarone 200 Mg Tablet PO 10/21/24 20:59 200 mg BID [facility] Administration Atorvastatin Calcium 80 mg 10/21/23 09:00 10/25/23 08:46 Atorvastatin 80 Mg Tablet PO 10/20/24 08:59 80 mg DAILY [facility] Administration Bumetanide 0.5 mg 10/24/23 16:00 10/25/23 08:46 Bumetanide 1 Mg Tablet PO 10/23/24 15:59 0.5 mg BID@0800,1600 [facility] Administration Carvedilol 25 mg 10/22/23 18:00 10/25/23 08:46 Carvedilol 25 Mg Tablet PO 10/21/24 17:59 25 mg BID.PC.BKFAST.SUPPER [facility] Administration Dextrose 0 gm 10/20/23 12:09 Dextrose 50% In Water 25 Gm/50 Ml Syringe IV-PUSH 10/19/24 12:08 PRN PRN Hypoglycemia Empagliflozin 10 mg 10/21/23 09:00 10/25/23 08:47 Empagliflozin 10 Mg Tablet PO 10/20/24 08:59 10 mg DAILY [facility] Administration Finasteride 5 mg 10/20/23 22:00 10/24/23 22:18 Finasteride 5 Mg Tablet PO 10/19/24 21:59 5 mg QHS [facility] Administration Fluoxetine HCl 10 mg 10/21/23 09:00 10/25/23 08:46 Fluoxetine 10 Mg Capsule PO 10/20/24 08:59 10 mg DAILY [facility] Administration Glucose 0 gm 10/20/23 12:09 Dextrose 40% Gel 15 Gm Tube PO 10/19/24 12:08 PRN PRN Hypoglycemia Hydralazine HCl 10 mg 10/20/23 11:10 Hydralazine 20 Mg/Ml Vial IV-PUSH 10/19/24 11:09 Q4H PRN Hypertension Magnesium Sulfate 2 gm in 50 mls @ 25 mls/hr 10/20/23 11:10 Magnesium Sulf 2gm-*Swfi* IV 10/19/24 11:09 DAILY PRN Magnesium Level < 1.5 Sodium Chloride 500 mls @ 20 mls/hr 10/24/23 18:44 0.9 % Sodium Chloride IV 10/25/23 18:43 PROTOCOL PRN BLOOD TRANSFUSION Sodium Chloride 500 mls @ 20 mls/hr 10/25/23 09:25 0.9 % Sodium Chloride IV 10/26/23 09:24 PROTOCOL PRN BLOOD TRANSFUSION Insulin Aspart 0 units 10/20/23 17:00 10/25/23 08:45 Insulin Aspart 300 Units/3 Ml Insuln.Pen SUBCUT 10/19/24 16:59 Not Given TID.WM.HS [facility] Protocol Insulin Aspart Prota 70%/Aspart 30% 26 units 10/20/23 16:30 10/25/23 10:36 Insulin Aspart Protamin/Aspart 300 Units/3 Ml Insuln.Pen SUBCUT 10/19/24 16:29 Not Given BID.AC.BKFAST.SUPPER [facility] Labetalol HCl 5 mg 10/20/23 10:55 Labetalol 100 Mg/20 Ml Vial IV-PUSH 10/19/24 10:54 Q4H PRN Hypertension Levothyroxine Sodium 75 mcg 10/21/23 06:30 10/25/23 06:11 Levothyroxine 75 Mcg Tablet PO 10/20/24 06:29 75 mcg DAILY.0630 [facility] Administration Melatonin 5 mg 10/20/23 11:10 10/24/23 22:21 Melatonin 5 Mg Tablet PO 10/19/24 11:09 5 mg QHS PRN Administration Insomnia Morphine Sulfate 2 mg 10/23/23 05:29 10/23/23 10:22 Morphine Sulfate 4 Mg/Ml Cartridge IV-PUSH 2 mg Q4H PRN Administration Pain Scale 8 - 10 Nitroglycerin 0.4 mg 10/20/23 10:48 10/24/23 01:59 Nitroglycerin 0.4 Mg Tab.Subl SUBLINGUAL 10/19/24 10:47 0.4 mg Q5M PRN Administration Chest Pain Nitroglycerin 0.5 inch 10/24/23 09:45 10/25/23 06:11 Nitroglycerin 2% Oint Packet TRANSDERML 10/23/24 09:44 0.5 inch Q6H [facility] Administration Ondansetron HCl 4 mg 10/20/23 11:05 Ondansetron 4 Mg/2 Ml Vial IV-PUSH 10/19/24 11:04 Q8H PRN Nausea And Vomiting Pantoprazole Sodium 40 mg 10/25/23 21:00 Pantoprazole 40 Mg Vial IV-PUSH 10/24/24 20:59 BID N[facility] Potassium Chloride 40 meq 10/20/23 11:10 Potassium Chloride Er 20 Meq Tab.Er.Prt PO 10/19/24 11:09 DAILY PRN Hypokalemia Sodium Chloride 10 ml 10/25/23 21:00 Sodium Chloride 0.9 % 10 Ml Vial.Pf INJECTION 10/24/24 20:59 BID N[facility] Sodium Chloride 10 ml 10/25/23 21:00 Sodium Chloride 0.9 % 10 Ml Syringe IV-PUSH 10/24/24 20:59 BID N[facility] A&P - Hospitalist Assessment/Plan (1) NSTEMI (non-ST elevated myocardial infarction): (2) CAD (coronary artery disease): (3) CKD (chronic kidney disease) stage 3, GFR 30-59 ml/min: Plan: LILIANA on CKD 4 (4) Diabetes: (5) Anemia in CKD (chronic kidney disease): (6) Hypertension: (7) Hypothyroid: (8) GERD (gastroesophageal reflux disease): Plan Non-STEMI Cardiology is following. Antiplatelet and Eliquis held due to ?GI bleeding. Monitoring hemoglobin. No chest pain, seems stable although high oxygen requirement with high flow nasal cannula at 30 L/min and 70% FiO2 No plan for cardiac cath at this time due to worsening kidney function Cardiorenal LILIANA -Management as per contracts representative. discussed with contracts representative this morning again. Acute hypoxic respiratory failure -On high flow nasal cannula. Resume diuresis as per cardiology and nephrology -Monitor respiratory status -Wean down oxygen but keep saturation above 92% -Will obtain follow-up x-ray Possible upper GI bleeding Plavix and Eliquis were held H/H are stable Protonix PO daily H/H in am GI consulted- no plan for scopes at this time Hypertension: Hold valsartan and continue with no Hyperlipidemia: Continue with Lipitor daily Diabetes type2: Insulin sliding scale/Jardiance Morbid obese: Lifestyle modification Documented By: Norman Figueroa DO 10/25/23 1204 Signed By: <Electronically signed by Norman Figueroa DO> 10/25/23 1206 [facility] Work Phone: 1(970) 549-531305-31-2024 Consult note Author Brian Mc [facility] October 24, 2023 12:55pm Note Date/Time October 24, 2023 8:39a m [facility] [address] [place] [address] Gastroenterology Consult Note Signed Patient: Rachel Hollingsworth MR#: [id number] : 1935 Acct:[id number] Age/Sex: 88 / M Adm Date: 4 Loc: Room: [address] [place] [address] Type: ADM IN Attending Dr: Norman Figueroa DO Copies to: Brian Mc MD NO FAMILY PHYSICIAN Norman Figueroa DO~ HPI Data of Consult Date of Consultation: 10/24/23 Requesting Physician: Norman Figueroa DO Consult Narrative History of present illness: Mr. Hollingsworth is a 88 year old male with a past medical history significant for HTN, pA-fib on Eliquis, HLD, severe CAD s/p CABG, anemia of chronic disease, insulin-dependent diabetes, HFrEF who was admitted for epigastric pain, pulmonary edema,AoCKD with new respiratory failure on high flow nasal cannula. Who GI is consulted for anemia, positive FOBT. The patient denies any melena he states that he sometimes has formed dark stool which is consistent with his iron therapy and this has happened off and on since being on iron. He denies any tarry bowel movements. Denies any sadiq hematochezia. He denies NSAID use. Heis chronically on a PPI in the outpatient setting. He reports his last colonoscopy was years ago. He endorses shortness of breath. There was some concern for a mass in his sigmoid colon, he underwent sigmoid resection in 2008 with a stapled end-to-end anastomosis, pathology showed diverticulosis with stenosis and scar tissue formation. Initially was hypertensive on presentation. Initially about a 1 g drop in his hemoglobin and has since fluctuated 8-9 sinceadmission. Anemia is normocytic. Reticulocyte count is profoundly hypoproliferative. Iron studies show mixed picture. LDH is elevated. cc:: CC: Norman Figueroa, Review of Systems Constitutional Constitutional: Denies anorexia and Denies weight loss Eyes Eyes: Denies blurry vision and Denies change in vision ENT Ears, Nose, Mouth, and Throat: Denies change in voice and Denies dizziness Cardiovascular Cardiovascular: Reports as per HPI Respiratory Respiratory: Reports as per HPI Gastrointestinal Gastrointestinal: Reports as per HPI Musculoskeletal Musculoskeletal: Denies deformity and Denies neck pain Neurologic Neurologic: Denies behavioral changes and Denies convulsions Psychiatric Psychiatric: Denies behavioral changes and Denies confusion Endocrine Endocrine: Denies fatigue and Denies polydipsia [facility] Medical History (Updated 10/23/23 @ 14:46 by Sidney Chapman MD) Anemia PVD (peripheral vascular disease) CHF (congestive heart failure) GERD (gastroesophageal reflux disease) Chronic anticoagulation Paroxysmal atrial fibrillation Vitamin D deficiency Hypothyroid Anemia in CKD (chronic kidney disease) CKD (chronic kidney disease) stage 3, GFR 30-59 ml/min BPH (benign prostatic hyperplasia) Depression Hyperlipidemia CAD (coronary artery disease) GERD (gastroesophageal reflux disease) Elbow fracture, right with surgery History of intestine removal Carotid artery disease with surgery HTN (hypertension) Diabetes Stroke DECEMBER 2019 Surgical History H/O carotid endarterectomy History of left hip replacement History of shoulder surgery left History of heart bypass surgery x4 Family History Father Family/Other Legacy FamHx Problem: 2 children , 1 sister , 3 brothers Mother Hypertension Diabetes Heart disease Cancer Legacy FamHx Problem: Diagnosed with Cancer Social History Smoking Status: Former smoker Tobacco Type: cigarettes Substance Use Type: None Social History Comments: lives with grandchild and great-grandchildren Meds Medications and Allergies Allergies codeine Allergy (Unknown, Verified 10/21/23 12:01) Nightmare, bad dreams acetaminophen [From Tylenol] Adverse Reaction (Verified 10/21/23 12:01) Nightmare Home Medications atorvastatin 80 mg tablet 80 mg PO DAILY 06/09/20 [History Confirmed 10/22/23] clopidogrel 75 mg tablet 75 mg PO DAILY 06/09/20 [History Confirmed 10/20/23] acetaminophen 500 mg tablet 1,000 mg PO QHS 01/25/21 [History Confirmed 10/22/23] apixaban 2.5 mg tablet (Eliquis) 2.5 mg PO BID 01/25/21 [History Confirmed 10/20/23] canagliflozin 100 mg tablet (Invokana) 100 mg PO DAILY 01/25/21 [History Confirmed 10/22/23] cholecalciferol (vitamin D3) 125 mcg (5,000 unit) tablet (Vitamin D3) 125 mcg PODAILY 01/25/21 [History Confirmed 11/30/21] fluoxetine 10 mg capsule 10 mg PO DAILY 01/25/21 [History Confirmed 10/20/23] nitroglycerin 0.4 mg sublingual tablet 0.4 mg sublingual Q5-15M PRN Chest Pain 01/25/21 [History Confirmed 10/20/23] valsartan 80 mg tablet 40 mg PO DAILY 01/25/21 [History Confirmed 10/22/23] amiodarone 200 mg tablet 200 mg PO DAILY 12/01/21 [History Confirmed 10/20/23] amlodipine 5 mg tablet 5 mg PO DAILY 12/01/21 [History Confirmed 10/22/23] finasteride 5 mg tablet 5 mg PO QHS 12/01/21 [History Confirmed 12/01/21] isosorbide mononitrate 30 mg tablet,extended release 24 hr 60 mg PO DAILY 12/01/21 [History Confirmed 10/22/23] tamsulosin 0.4 mg capsule 0.4 mg PO DAILY 12/01/21 [History Confirmed 10/20/23] insulin aspart U-100 100 unit/mL (3 mL) subcutaneous pen (Novolog FlexPen U-100 Insulin aspart) 0 units subcut ACHS #0 mL 12/06/21 [Rx Confirmed 10/22/23] pantoprazole 40 mg tablet,delayed release 40 mg PO DAILY.AC.BKFAST #30 tabs 12/06/21 [Rx Confirmed 10/20/23] bumetanide 1 mg tablet 1 mg PO BID 10/22/23 [History Confirmed 10/22/23] carvedilol 25 mg tablet 25 mg PO BID.PC.BKFAST.SUPPER 10/22/23 [History Confirmed 10/22/23] insulin glargine-yfgn 100 unit/mL (3 mL) subcutaneous pen 30 unit subcut BID 10/22/23 [History Confirmed 10/22/23] levothyroxine 75 mcg tablet 125 mcg PO DAILY.0630 10/22/23 [History Confirmed 10/22/23] Exam Physical Exam Vital Signs: Temp Pulse Resp BP Pulse Ox O2 Del Method O2 Flow Rate 98 F 72 18 113/68 96 High Flow 30 10/24/23 07:00 10/24/23 07:00 10/24/23 07:00 10/24/23 07:00 10/24/23 07:00 10/24/23 07:49 10/24/23 07:49 FiO2 80 10/24/23 07:49 Const General: comfortable and no acute distress HEENT Head: normocephalic and atraumatic Eyes Sclera: sclerae normal EOM: EOM intact bilaterally Neck Neck: trachea midline and supple Resp Effort & Inspection: symmetric chest movement and respiratory effort not decreased GI Inspection: normal to inspection and distended Skin General: atrophy and ecchymosis Neuro General: patient alert and patient awake Psych Appearance: grossly normal Mental Status: mental status grossly normal Results - Gastroenterology Labs Labs: Laboratory Results - last 24 hr 10/23/23 10/23/23 10/23/23 11:19 12:56 13:32 Corrected WBC Uncorrected WBC Count RBC Hgb Hct MCV MCH MCHC RDW Plt Count MPV Neut % (Auto) Lymph % (Auto) [place] % (Auto) Eos % (Auto) Baso % (Auto) Nucleat RBC Rel Count Neut # (Auto) Lymph # (Auto) [place] # (Auto) Eos # (Auto) Baso # (Auto) Platelet Estimate Plt Morphology Comment RBC Morphology Polychromasia Anisocytosis PHA Creatinine Clear Sodium Potassium Chloride Carbon Dioxide Anion Gap BUN Creatinine Est GFR (CKD-EPI) Glucose POC Glucose 224 Calcium Phosphorus Albumin Blood Type A Positive Blood Type Recheck A Positive Antibody Screen Negative Crossmatch ([facility]) See Detail 10/23/23 10/23/23 10/23/23 16:58 19:13 20:25 Corrected WBC 5.0 Uncorrected WBC Count 5.0 RBC 3.03 L Hgb 9.2 L Hct 27.5 L MCV 90.8 MCH 30.5 MCHC 33.6 RDW 15.3 H Plt Count 157 MPV 9.6 Neut % (Auto) 90.3 Lymph % (Auto) 5.4 [place] % (Auto) 1.8 Eos % (Auto) 0.4 Baso % (Auto) 2.1 Nucleat RBC Rel Count 0.3 Neut # (Auto) 4.6 Lymph # (Auto) 0.[address] # (Auto) 0.1 Eos # (Auto) 0.0 Baso # (Auto) 0.1 Platelet Estimate Normal Plt Morphology Comment Normal RBC Morphology N/A Polychromasia Moderate Anisocytosis Slight PHA Creatinine Clear Sodium Potassium Chloride Carbon Dioxide Anion Gap BUN Creatinine Est GFR (CKD-EPI) Glucose POC Glucose 257 331 Calcium Phosphorus Albumin Blood Type Blood Type Recheck Antibody Screen Crossmatch ([facility]) 10/24/23 05:19 Corrected WBC 8.2 Uncorrected WBC Count 8.2 RBC 2.59 L Hgb 8.0 L Hct 23.4 L MCV 90.3 MCH 30.9 MCHC 34.2 RDW 15.4 H Plt Count 155 MPV 9.3 Neut % (Auto) 76.2 Lymph % (Auto) 10.1 [place] % (Auto) 13.1 Eos % (Auto) 0.0 Baso % (Auto) 0.6 Nucleat RBC Rel Count 0.1 Neut # (Auto) 6.3 Lymph # (Auto) 0.[address] # (Auto) 1.1 H Eos # (Auto) 0.0 Baso # (Auto) 0.0 Platelet Estimate Plt Morphology Comment RBC Morphology Polychromasia Anisocytosis PHA Creatinine Clear 18.24 Sodium 137 Potassium 3.9 Chloride 100 Carbon Dioxide 24.7 Anion Gap 16.2 H BUN 63 H Creatinine 3.34 H D Est GFR (CKD-EPI) 17.242 Glucose 124 H POC Glucose Calcium 8.8 Phosphorus 5.0 H Albumin 3.5 Blood Type Blood Type Recheck Antibody Screen Crossmatch ([facility]) A&P - Gastroenterology Assessment/Plan (1) Hypertensive chronic kidney disease with stage 1 through stage 4 chronic kidney disease, or unspecified chronic kidney disease: (2) Anemia: Qualifiers: Anemia type: other cause Other causes of anemia: other cause, not classified Qualified Code(s): D64.89 - Other specified anemias (3) Type 2 diabetes mellitus with diabetic chronic kidney disease: (4) NSTEMI (non-ST elevated myocardial infarction): (5) Chronic anticoagulation: (6) Paroxysmal atrial fibrillation: Plan His anemia is multifactorial. He has an end-to-end colorectal anastomosis with resection of the sigmoid colon, an FOBT is almost certainly always going to be positive. Positive FOBT is not a melena equivalent. He had been having formed stools which were dark because of iron therapy not consistent with melena. He is not on NSAIDs and takes a PPI in the outpatient setting. He does not have significant risk factors for PUD. He is at risk for AVMs of the small bowel given his advanced kidney disease. He would not be a candidate for deep enteroscopy due to his cardiopulmonary risk factors. His iron studies show a mixed picture, likely there is a component of anemia of chronic disease. He hasan inappropriate reticulocyte response consistent with an adequate bone marrow response.Elevated LDH. -Would recommend high-dose PPI 40 mg twice daily lifelong for prophylaxis given his cardiopulmonary risk factors -Continue to avoid NSAIDs -Risk-benefit discussion about anticoagulation use, he is high risk for bleedingcomplications -Will defer endoscopic evaluation at this time unless and until he has overt GI bleeding Thank you for this consult, we will continue to follow. Documented By: Brian Mc MD 10/24/23 0839 Signed By: <Electronically signed by Brian Mc MD> 10/24/23 4847 [facility] Work Phone: 1(427) 156-611705-31-2024 Progress note Author Scott Delgado [facility] October 24, 2023 12:43pm Note Date/Time October 24, 2023 12:43 pm [facility] [address] [place] [address] Nephrology Progress Note Signed Patient: Rachel Hollingsworth SR MR#: [id number] : 1935 Acct:[id number] Age/Sex: 88 / M Adm Date: 4 Loc: Room: [address] [place] [address] Type: ADM IN Attending Dr: Norman Figueroa DO Copies to: ~ Date of Service: 10/24/2023 Subjective Subjective Narrative: This is a 88-year-old male with medical history of CAD s/p CABG in 2003, CKD, DM, HTN, HLD and A-fib presented to [place] ER with chest pain. He had a EKG showed diffuse ST depression. He was found to have anemia with hemoglobin 8 g/dL. He also found to have abnormal renal function with elevated serum creatinine 3 mg/dL and BUN 65 mg/dL. His chest x-ray showed cardiomegaly with interstitial infiltrate possibly due to CHF versus a multifocal pneumonia. White cell count was normal so no antibiotics were given. He was given blood transfusion and was transferred to the [facility] for further care. Patient reported to have a longstanding insulin-dependent type 2 diabetes mellitus and currently takes insulin. He denies any history of diabetic retinopathy. He reported that that he stopped following with his PCP and has not been seen close to a year. Upon review of his records, it appears the patient has a longstanding CKD and his serum creatinine was 2.1 mg in May 2023. He denies any evaluation by the contracts representative in the past. Nephrology is consulted for LILIANA on CKD. Interval history: Patient developed shortness of breath on high flow oxygen after 1 unit of packedRBCs yesterday. Patient was given metolazone. He was restarted on bumetanide 1mg twice a day as well. Today the patient is feeling better however still hypoxemic on FiO2 60%. Blood pressure is borderline 104/63. He does not have any more chest pain. Hemoglobin did drop again after blood transfusion to 8 g/dL despite diuresis andnegative balance. Patient is being evaluated by GI for possible GI bleeding. Patient has elevated reticulocyte count 3.9% with normal haptoglobin suggestive of losing blood rather than hemolysis. Stool was positive for occult blood. Renal function is worse today with diuresis and possible GI bleeding with creatinine up to 3.34 and BUN 63 mg/dL. Exam Physical Exam Vital Signs: Temp Pulse Resp BP Pulse Ox O2 Del Method O2 Flow Rate 36.6 C 69 18 104/63 95 High Flow 30 10/24/23 11:00 10/24/23 11:00 10/24/23 11:00 10/24/23 11:00 10/24/23 11:00 10/24/23 11:00 10/24/23 11:00 FiO2 60 10/24/23 11:00 Narrative: Constitutional: Appears comfortable and not in distress HEENT: Mild pallor, no jaundice or cyanosis. Cardiovascular: RRR, normal S1-S2, no gallop or rub, No JVD Respiratory: Good bilateral air entry no wheezing or crackles Gastrointestinal: Soft, non tender, positive bowel sounds Extremities: Trace edema Skin: No rashes or bruises Neurology: Awake, alert, oriented ?3, No focal motor or sensory deficits Psych: Normal mood and affect Objective Intake and Output I&O: Intake & Output 10/21/23 10/22/23 10/23/23 10/24/23 23:59 23:59 23:59 23:59 Intake Total 850 / 850 1960 / 1960 770 / 770 200 / 200 Output Total 1550 / 1550 1750 / 1750 300 / 300 1150 / 1150 Balance -700 / -700 210 / 210 470 / 470 -950 / -950 Weight 94.5 kg 97.2 kg 100 kg 97 kg Meds and Allergies Meds: Active Medications Acetaminophen (Acetaminophen 325 Mg Tablet) 650 mg PO Q6HR PRN PRN Reason: Pain Scale 1 - 3 or fever Stop: 10/19/24 11:04 Last Admin: 10/23/23 18:07 Dose: 650 mg Amiodarone HCl (Amiodarone 200 Mg Tablet) 200 mg PO BID [facility] Stop: 10/21/24 20:59 Last Admin: 10/24/23 08:04 Dose: 200 mg Atorvastatin Calcium (Atorvastatin 80 Mg Tablet) 80 mg PO DAILY [facility] Stop: 10/20/24 08:59 Last Admin: 10/24/23 08:04 Dose: 80 mg Bumetanide (Bumetanide 1 Mg Tablet) 0.5 mg PO BID@0800,1600 [facility] Stop: 10/23/24 15:59 Carvedilol (Carvedilol 25 Mg Tablet) 25 mg PO BID.PC.BKFAST.SUPPER [facility] Stop: 10/21/24 17:59 Last Admin: 10/24/23 08:04 Dose: 25 mg Dextrose (Dextrose 50% In Water 25 Gm/50 Ml Syringe) 0 gm IV-PUSH PRN PRN PRN Reason: Hypoglycemia Stop: 10/19/24 12:08 Empagliflozin (Empagliflozin 10 Mg Tablet) 10 mg PO DAILY [facility] Stop: 10/20/24 08:59 Last Admin: 10/24/23 08:04 Dose: 10 mg Finasteride (Finasteride 5 Mg Tablet) 5 mg PO QHS [facility] Stop: 10/19/24 21:59 Last Admin: 10/23/23 21:53 Dose: 5 mg Fluoxetine HCl (Fluoxetine 10 Mg Capsule) 10 mg PO DAILY [facility] Stop: 10/20/24 08:59 Last Admin: 10/24/23 08:04 Dose: 10 mg Glucose (Dextrose 40% Gel 15 Gm Tube) 0 gm PO PRN PRN PRN Reason: Hypoglycemia Stop: 10/19/24 12:08 Hydralazine HCl (Hydralazine 20 Mg/Ml Vial) 10 mg IV-PUSH Q4H PRN PRN Reason: Hypertension Stop: 10/19/24 11:09 Magnesium Sulfate (Magnesium Sulf 2gm-*Swfi*) 2 gm in 50 mls @ 25 mls/hr IV DAILY PRN PRN Reason: Magnesium Level < 1.5 Stop: 10/19/24 11:09 Sodium Chloride (0.9 % Sodium Chloride) 500 mls @ 20 mls/hr IV PROTOCOL PRN PRN Reason: BLOOD TRANSFUSION Stop: 10/24/23 14:25 Insulin Aspart (Insulin Aspart 300 Units/3 Ml Insuln.Pen) 0 units SUBCUT TID.WM.HS [facility]; Protocol Stop: 10/19/24 16:59 Last Admin: 10/24/23 12:19 Dose: 3 units Insulin Aspart Prota 70%/Aspart 30% (Insulin Aspart Protamin/Aspart 300 Units/3 Ml Insuln.Pen) 26 units SUBCUT BID.AC.BKFAST.SUPPER [facility] Stop: 10/19/24 16:29 Last Admin: 10/24/23 08:04 Dose: 26 units Labetalol HCl (Labetalol 100 Mg/20 Ml Vial) 5 mg IV-PUSH Q4H PRN PRN Reason: Hypertension Stop: 10/19/24 10:54 Levothyroxine Sodium (Levothyroxine 75 Mcg Tablet) 75 mcg PO DAILY.30 [facility] Stop: 10/20/24 06:29 Last Admin: 10/24/23 08:04 Dose: 75 mcg Melatonin (Melatonin 5 Mg Tablet) 5 mg PO QHS PRN PRN Reason: Insomnia Stop: 10/19/24 11:09 Morphine Sulfate (Morphine Sulfate 4 Mg/Ml Cartridge) 2 mg IV-PUSH Q4H PRN PRN Reason: Pain Scale 8 - 10 Last Admin: 10/23/23 10:22 Dose: 2 mg Nitroglycerin (Nitroglycerin 0.4 Mg Tab.Subl) 0.4 mg SUBLINGUAL Q5M PRN PRN Reason: Chest Pain Stop: 10/19/24 10:47 Last Admin: 10/24/23 01:59 Dose: 0.4 mg Nitroglycerin (Nitroglycerin 2% Oint Packet) 0.5 inch TRANSDERML Q6H [facility] Stop: 10/23/24 09:44 Last Admin: 10/24/23 10:19 Dose: 0.5 inch Ondansetron HCl (Ondansetron 4 Mg/2 Ml Vial) 4 mg IV-PUSH Q8H PRN PRN Reason: Nausea And Vomiting Stop: 10/19/24 11:04 Pantoprazole Sodium (Pantoprazole 40 Mg Tablet.) 40 mg PO DAILY.BENITO [facility] Stop: 10/20/24 07:29 Last Admin: 10/24/23 08:04 Dose: 40 mg Potassium Chloride (Potassium Chloride Er 20 Meq Tab.Er.Prt) 40 meq PO DAILY PRN PRN Reason: Hypokalemia Stop: 10/19/24 11:09 Allergies codeine Allergy (Unknown, Verified 10/21/23 12:01) Nightmare, bad dreams acetaminophen [From Tylenol] Adverse Reaction (Verified 10/21/23 12:01) Nightmare Results - Nephrology Labs 10/24/23 05:19 10/24/23 05:19 Labs: 10/24/23 05:19 BUN 63 H Creatinine 3.34 H D Phosphorus 5.0 H Iron Saturation 4.1 L Ferritin 59.6 Albumin 3.5 Radiology Impressions Impressions - last 24 hours: Impressions Chest X-Ray 10/24/23 05:00 IMPRESSION: RESIDUAL ATELECTASIS AND/OR INFILTRATE. Impression dictated by: Amber Archibald M.D.10/24/2023 7:06 AM Dictation Location: [place] [address] Any impression(s) listed above is documentation that was entered by the reading physician into a diagnostic report(s) for Rachel Hollingsworth . I have reviewed the report(s) and am incorporating any findings in the treatment plan of this patient where applicable. A&P - Nephrology Assessment/Plan (1) Acute kidney injury superimposed on CKD: Assessment/Problem Details: He has LILIANA on CKD possibly due to the symptomatic anemia or cardiorenal in the setting of ACS. Patient never had workup for CKD however its most likely diabetic nephropathy. (2) CKD (chronic kidney disease) stage 4, GFR 15-29 ml/min: Assessment/Problem Details: He has a CKD due to the longstanding DM and HTN baseline serum creatinine is around 2.1 mg/dL. (3) Anemia: Assessment/Problem Details: He has anemia and was transfused 1 unit of PRBC. Hemoglobin went up appropriately. (4) Type 2 diabetes mellitus with diabetic chronic kidney disease: Assessment/Problem Details: He has insulin-dependent type 2 diabetes mellitus was taking NovoLog at home. (5) Hypertensive chronic kidney disease with stage 1 through stage 4 chronic kidney disease, or unspecified chronic kidney disease: Assessment/Problem Details: Blood pressure is controlled. Valsartan was stopped on admission because of elevated creatinine. Plan * Renal function is worse after aggressive diuresis with bumetanide and metolazone yesterday. Will decrease bumetanide to 0.5 mg twice a day at the blood pressure is soft. Patient still hypoxemic. * Hemoglobin did drop further after blood transfusion with elevated reticulocyte count and normal haptoglobin. Patient is being evaluated by GI for possible GI bleeding. Plavix and aspirin are on hold. Patient has significant iron deficiency with ferritin 59 and iron saturation 4%. Will supplement with IV iron 250 mg IV daily x 4 doses. * Valsartan is on hold. Amlodipine was stopped as the blood pressure was low to improve renal and cardiac perfusion. Patient evaluated by cardiology and cardiac cath and intervention will be at high risk at this point. Unfortunately, patient is at high risk for progressionof CKD in the setting of low blood pressure, GI bleeding and possibility of ischemic cardiomyopathy. Medications will be adjusted and will continue conservative treatment at this point. Patient is not interested in pursuing dialysis at this point. Documented By: Scott Delgado MD 10/24/23 1236 Signed By: <Electronically signed by MD Scott Delgado> 10/24/23 1243 [facility] Work Phone: 1(445) 154-455505-31-2024 Progress note Author Norman Figueroa [facility] October 24, 2023 11:53am Note Date/Time October 24, 2023 11:53 am [facility] [address] [place] [address] Hospitalist Progress Note Signed Patient: Rachel Hollingsworth MR#: [id number] : 1935 Acct:[id number] Age/Sex: 88 / M Adm Date: 4 Loc: Room: [address] [place] [address] Type: ADM IN Attending Dr: Norman Figueroa DO Copies to: ~ Date of Service: 10/24/2023 Subjective Subjective Narrative: Seen and examined Stable overall although creatinine is worsening. Discussed with contracts representative. Diuretics being adjusted. He is on 30 L/min high flow nasal cannula with 70% FiO2. No chest pain or chest heaviness. Has dyspnea but stable. Exam Physical Exam Vital Signs: Temp Pulse Resp BP Pulse Ox O2 Del Method O2 Flow Rate 98 F 69 18 104/63 95 High Flow 30 10/24/23 11:10/24/23 11:10/24/23 11:10/24/23 11:00 10/24/23 11:10/24/23 11:10/24/23 11:00 FiO2 60 10/24/23 11:00 Narrative: generally- NAD, on high flow nasal cannula 30 L/min with 70% FiO2. Generally weak HEENT- head atraumatic normocephalic Heart regular rate Lungs diminished bilaterally, no increased respiratory effort Abdomen soft nontender, bowel sound present Neurologically alert and oriented, nonfocal Skin no rash Extremity positive edema, pulses and Objective Lab Results 10/24/23 05:19 10/24/23 05:19 Meds Allergies and Active Meds Allergies codeine Allergy (Unknown, Verified 10/21/23 12:01) Nightmare, bad dreams acetaminophen [From Tylenol] Adverse Reaction (Verified 10/21/23 12:01) Nightmare Active Meds: Active Medications Generic Name Dose Route Start Last Admin Trade Name Freq PRN Reason Stop Dose Admin Acetaminophen 650 mg 10/20/23 11:05 10/23/23 18:07 Acetaminophen 325 Mg Tablet PO 10/19/24 11:04 650 mg Q6HR PRN Administration Pain Scale 1 - 3 or fever Amiodarone HCl 200 mg 10/22/23 21:00 10/24/23 08:04 Amiodarone 200 Mg Tablet PO 10/21/24 20:59 200 mg BID [facility] Administration Atorvastatin Calcium 80 mg 10/21/23 09:00 10/24/23 08:04 Atorvastatin 80 Mg Tablet PO 10/20/24 08:59 80 mg DAILY [facility] Administration Bumetanide 0.5 mg 10/24/23 16:00 Bumetanide 1 Mg Tablet PO 10/23/24 15:59 BID@0800,1600 [facility] Carvedilol 25 mg 10/22/23 18:00 10/24/23 08:04 Carvedilol 25 Mg Tablet PO 10/21/24 17:59 25 mg BID.PC.BKFAST.SUPPER [facility] Administration Dextrose 0 gm 10/20/23 12:09 Dextrose 50% In Water 25 Gm/50 Ml Syringe IV-PUSH 10/19/24 12:08 PRN PRN Hypoglycemia Empagliflozin 10 mg 10/21/23 09:00 10/24/23 08:04 Empagliflozin 10 Mg Tablet PO 10/20/24 08:59 10 mg DAILY [facility] Administration Finasteride 5 mg 10/20/23 22:00 10/23/23 21:53 Finasteride 5 Mg Tablet PO 10/19/24 21:59 5 mg QHS [facility] Administration Fluoxetine HCl 10 mg 10/21/23 09:00 10/24/23 08:04 Fluoxetine 10 Mg Capsule PO 10/20/24 08:59 10 mg DAILY [facility] Administration Glucose 0 gm 10/20/23 12:09 Dextrose 40% Gel 15 Gm Tube PO 10/19/24 12:08 PRN PRN Hypoglycemia Hydralazine HCl 10 mg 10/20/23 11:10 Hydralazine 20 Mg/Ml Vial IV-PUSH 10/19/24 11:09 Q4H PRN Hypertension Magnesium Sulfate 2 gm in 50 mls @ 25 mls/hr 10/20/23 11:10 Magnesium Sulf 2gm-*Swfi* IV 10/19/24 11:09 DAILY PRN Magnesium Level < 1.5 Sodium Chloride 500 mls @ 20 mls/hr 10/23/23 14:26 0.9 % Sodium Chloride IV 10/24/23 14:25 PROTOCOL PRN BLOOD TRANSFUSION Insulin Aspart 0 units 10/20/23 17:00 10/24/23 08:04 Insulin Aspart 300 Units/3 Ml Insuln.Pen SUBCUT 10/19/24 16:59 Not Given TID.WM.HS [facility] Protocol Insulin Aspart Prota 70%/Aspart 30% 26 units 10/20/23 16:30 10/24/23 08:04 Insulin Aspart Protamin/Aspart 300 Units/3 Ml Insuln.Pen SUBCUT 10/19/24 16:29 26 units BID.AC.BKFAST.SUPPER [facility] Administration Labetalol HCl 5 mg 10/20/23 10:55 Labetalol 100 Mg/20 Ml Vial IV-PUSH 10/19/24 10:54 Q4H PRN Hypertension Levothyroxine Sodium 75 mcg 10/21/23 06:30 10/24/23 08:04 Levothyroxine 75 Mcg Tablet PO 10/20/24 06:29 75 mcg DAILY.0630 [facility] Administration Melatonin 5 mg 10/20/23 11:10 Melatonin 5 Mg Tablet PO 10/19/24 11:09 QHS PRN Insomnia Morphine Sulfate 2 mg 10/23/23 05:29 10/23/23 10:22 Morphine Sulfate 4 Mg/Ml Cartridge IV-PUSH 2 mg Q4H PRN Administration Pain Scale 8 - 10 Nitroglycerin 0.4 mg 10/20/23 10:48 10/24/23 01:59 Nitroglycerin 0.4 Mg Tab.Subl SUBLINGUAL 10/19/24 10:47 0.4 mg Q5M PRN Administration Chest Pain Nitroglycerin 0.5 inch 10/24/23 09:45 10/24/23 10:19 Nitroglycerin 2% Oint Packet TRANSDERML 10/23/24 09:44 0.5 inch Q6H [facility] Administration Ondansetron HCl 4 mg 10/20/23 11:05 Ondansetron 4 Mg/2 Ml Vial IV-PUSH 10/19/24 11:04 Q8H PRN Nausea And Vomiting Pantoprazole Sodium 40 mg 10/21/23 07:30 10/24/23 08:04 Pantoprazole 40 Mg Tablet.Dr PO 10/20/24 07:29 40 mg DAILY.AC.BKFAST NILSON Administration Potassium Chloride 40 meq 10/20/23 11:10 Potassium Chloride Er 20 Meq Tab.Er.Prt PO 10/19/24 11:09 DAILY PRN Hypokalemia A&P - Hospitalist Assessment/Plan (1) NSTEMI (non-ST elevated myocardial infarction): (2) CAD (coronary artery disease): (3) CKD (chronic kidney disease) stage 3, GFR 30-59 ml/min: Plan: LILIANA on CKD 4 (4) Diabetes: (5) Anemia in CKD (chronic kidney disease): (6) Hypertension: (7) Hypothyroid: (8) GERD (gastroesophageal reflux disease): Plan Non-STEMI Cardiology is following. Antiplatelet and Eliquis held due to GI bleeding. He has melena. Monitoring hemoglobin. No chest pain, seems stable although high oxygen requirement with high flow nasal cannula at 30 L/min and 70% FiO2 No plan for cardiac cath at this time due to worsening kidney function Cardiorenal LILIANA -Management as per contracts representative. discussed with contracts representative this morning. Acute hypoxic respiratory failure -On high flow nasal cannula. Resume diuresis as per cardiology and nephrology -Monitor respiratory status -Wean down oxygen but keep saturation above 92% -Will obtain follow-up x-ray Possible upper GI bleeding Plavix and Eliquis were held H/H are stable Protonix PO daily H/H in am GI consulted Hypertension: Hold valsartan and continue with no Hyperlipidemia: Continue with Lipitor daily Diabetes type2: Insulin sliding scale/Jardiance Morbid obese: Lifestyle modification Documented By: Norman Figueroa DO 10/24/23 1149 Signed By: <Electronically signed by Norman Figueroa DO> 10/24/23 1154 [facility] Work Phone: 1(233) 305-230705-31-2024 Progress note Author Sidney Chapman [facility] October 24, 2023 11:03am Note Date/Time October 24, 2023 10:56 am [facility] [address] [place], [place] [id number] Cardiology Progress Note Signed Patient: Rachel Hollingsworth SR MR#: [id number] : 1935 Acct:[id number] Age/Sex: 88 / M Adm Date: 4 Loc: 4 Room: [address] [place] [address] Type: ADM IN Attending Dr: Norman Figueroa DO Copies to: ~ Date of Service: 10/24/2023 Subjective Principal diagnosis: Chest pain/angina Interval history: Patient developed some respiratory distress following blood transfusion. He responded favorably, though, to supplemental diuretic therapy and high flow oxygen. This morning he is less dyspneic. Still on high flow oxygen saturating 94%. Review of chart demonstrates that I's and O's for the last 24 hours are net negative. Because of this is difficult to believe that pulmonary edema is simply on the basis of his transfusion. Nonetheless supportive care and continued diuresis will be undertaken There is also been an abrupt change in renal function. Phosphorus is higher, BUN higher creatinine higher. This precludes consideration of an angiographic procedure. Additionally we note hemoglobin today is lower than yesterday. Yesterday 9.3 today 8.0. This is even after he was given a unit of blood. If transfusion hadnot been performed probably hemoglobin would be 7.0 or lower. Obviously this continued profound anemia precludes a safe angiographic procedure. Bleeding risk associate with said procedure would be high and obviously the patient is maria d significant's and serious disadvantage even prior to going to the [employer]. Lastly, and most importantly, the patient fears contrast-induced nephropathy that would necessitate dialysis. Because he lives through his 's dialysis which lasted 5 years he does not wish to experience a procedurally induced renalfailure that would result in him requiring lifelong dialysis as well. Because of this he favors conservative therapy. Exam Physical Exam Vital Signs: Temp Pulse Resp BP Pulse Ox O2 Del Method O2 Flow Rate 98 F 77 24 113/68 98 High Flow 30 10/24/23 07:00 10/24/23 10:19 10/24/23 07:57 10/24/23 10:19 10/24/23 07:57 10/24/23 08:00 10/24/23 07:57 FiO2 70 10/24/23 07:57 HEENT Head: normal to inspection Ears: hearing grossly normal bilaterally Nose: external nose normal and nares normal Face and sinus: normal facial exam Mouth: oral mucosae normal and tongue normal Eyes Conjunctivae: conjunctivae normal Sclera: sclerae normal Neck Neck: normal visual inspection Carotids: normal carotid upstroke Lymphatic: no lymphadenopathy noted Chest Chest palpation & inspection: normal inspection of the chest Resp Other: Diminished breath sounds and basilar rales are noted. Chest x-ray, though, looks better than it did yesterday. Cardio Rate: regular rate Rhythm: regular rhythm Heart Sounds: S1 normal and S2 normal GI Inspection: normal to inspection Palpation: soft Skin General: no rashes or lesions noted Neuro General: patient alert, patient awake and patient oriented x3 Cognition: normal cognition Motor: muscle tone normal throughout Sensory Exam: no sensory deficits noted Objective Labs 10/24/23 05:19 10/24/23 05:19 Labs: Laboratory Results - last 24 hr 10/23/23 10/23/23 10/23/23 11:19 12:56 13:32 Corrected WBC Uncorrected WBC Count RBC Hgb Hct MCV MCH MCHC RDW Plt Count MPV Neut % (Auto) Lymph % (Auto) [place] % (Auto) Eos % (Auto) Baso % (Auto) Nucleat RBC Rel Count Neut # (Auto) Lymph # (Auto) [place] # (Auto) Eos # (Auto) Baso # (Auto) Platelet Estimate Plt Morphology Comment RBC Morphology Polychromasia Anisocytosis Absolute Retic Percent Retic PHA Creatinine Clear Sodium Potassium Chloride Carbon Dioxide Anion Gap BUN Creatinine Est GFR (CKD-EPI) Glucose POC Glucose 224 Calcium Phosphorus Iron TIBC Iron Saturation Transferrin Ferritin Lactate Dehydrogenase Albumin Blood Type A Positive Blood Type Recheck A Positive Antibody Screen Negative Crossmatch ([facility]G) See Detail 10/23/23 10/23/23 10/23/23 16:58 19:13 20:25 Corrected WBC 5.0 Uncorrected WBC Count 5.0 RBC 3.03 L Hgb 9.2 L Hct 27.5 L MCV 90.8 MCH 30.5 MCHC 33.6 RDW 15.3 H Plt Count 157 MPV 9.6 Neut % (Auto) 90.3 Lymph % (Auto) 5.4 [place] % (Auto) 1.8 Eos % (Auto) 0.4 Baso % (Auto) 2.1 Nucleat RBC Rel Count 0.3 Neut # (Auto) 4.6 Lymph # (Auto) 0.[address] # (Auto) 0.1 Eos # (Auto) 0.0 Baso # (Auto) 0.1 Platelet Estimate Normal Plt Morphology Comment Normal RBC Morphology N/A Polychromasia Moderate Anisocytosis Slight Absolute Retic Percent Retic PHA Creatinine Clear Sodium Potassium Chloride Carbon Dioxide Anion Gap BUN Creatinine Est GFR (CKD-EPI) Glucose POC Glucose 257 331 Calcium Phosphorus Iron TIBC Iron Saturation Transferrin Ferritin Lactate Dehydrogenase Albumin Blood Type Blood Type Recheck Antibody Screen Crossmatch ([facility]) 10/24/23 05:19 Corrected WBC 8.2 Uncorrected WBC Count 8.2 RBC 2.59 L Hgb 8.0 L Hct 23.4 L MCV 90.3 MCH 30.9 MCHC 34.2 RDW 15.4 H Plt Count 155 MPV 9.3 Neut % (Auto) 76.2 Lymph % (Auto) 10.1 [place] % (Auto) 13.1 Eos % (Auto) 0.0 Baso % (Auto) 0.6 Nucleat RBC Rel Count 0.1 Neut # (Auto) 6.3 Lymph # (Auto) 0.[address] [place] # (Auto) 1.1 H Eos # (Auto) 0.0 Baso # (Auto) 0.0 Platelet Estimate Plt Morphology Comment RBC Morphology Polychromasia Anisocytosis Absolute Retic 0.103 H Percent Retic 3.9 H PHA Creatinine Clear 18.24 Sodium 137 Potassium 3.9 Chloride 100 Carbon Dioxide 24.7 Anion Gap 16.2 H BUN 63 H Creatinine 3.34 H D Est GFR (CKD-EPI) 17.242 Glucose 124 H POC Glucose Calcium 8.8 Phosphorus 5.0 H Iron 11 L TIBC 266 Iron Saturation 4.1 L Transferrin 190 L Ferritin 59.6 Lactate Dehydrogenase 304 H Albumin 3.5 Blood Type Blood Type Recheck Antibody Screen Crossmatch ([facility]) A&P - Cardiology (1) CAD (coronary artery disease): Assessment/Problem Details: Longstanding coronary disease with bypass surgery about 20 years ago. His presentation is notable for non-ST segment elevation PR. Probably occluded a small distal vessel and/or vein graft. The presentation, and course thereafter, are consistent with late presentation. Basically all of the infarctthat could occur probably has. His intermittent chest discomfort sounds nonanginal but also it is possible that he is having some collateral insufficiency has some angina. Collateral insufficiency can only be mitigated by rate control (beta-blockers) preload reduction (nitrates and diuretics) and correction of anemia. In a patient with complex flow-limiting coronary disease and ideal hemoglobin is 10.0 mg/dL. The patient is far from that. Qualifiers: Coronary Disease-Associated Artery/Lesion type: [place] artery Three Affiliated vs. transplanted heart: [place] heart Associated angina: unspecified whether angina present Qualified Code(s): I25.10 - Atherosclerotic heart disease of [place] coronary artery without angina pectoris Code(s): I25.10 - Atherosclerotic heart disease of [place] coronary artery without angina pectoris (2) Paroxysmal atrial fibrillation: Assessment/Problem Details: Patient had a history of paroxysmal atrial fibrillation for which he has been intermittently on antiarrhythmic therapy as well as antithrombotic therapy. Because of severe life-threatening gastrointestinal bleeding we have discontinued antithrombotic therapy and focused on the maintenance of sinus rhythm. Most of the associated stroke risk associated with paroxysmal atrial fibrillation does go away if sinus rhythm can be maintained. Because of this werecommend continued amiodarone therapy Code(s): I48.0 - Paroxysmal atrial fibrillation (3) Chronic anticoagulation: Assessment/Problem Details: Patient's history is notable for chronic anticoagulation. It appears that othercaregivers favor this over maintenance of sinus rhythm. Unfortunately it is caused him to have significant blood loss anemia. The blood loss anemia has notbeen evaluated (no EGD or colonoscopy) and he was simply treated by his PCP withiron supplementation. This obviously is insufficient in this clinical setting and hence we have discontinued all antithrombotic agents because of the life-threatening nature of his gastrointestinal bleeding Code(s): Z79.01 - nursing home (current) use of anticoagulants (4) Anemia: Assessment/Problem Details: Due to gastrointestinal bleeding. Stools are heme positive. Qualifiers: Anemia type: other cause Other causes of anemia: other cause, not classified Qualified Code(s): D64.89 - Other specified anemias Code(s): D64.9 - Anemia, unspecified Plan Discontinue all anticoagulants. Continue amiodarone to maintain sinus rhythm. Transfuse to hemoglobin of 10.0 is preferred. Optimize antianginals including beta-blockade and preload reduction. I believe the patient is at high risk for acute on chronic renal failure necessitating dialysis if he were to undergo an angiographic procedure. His worsening creatinine today highlights the tenuous nature of his kidney function. Documented By: Sidney Chapman MD [id number] Signed By: <Electronically signed by MD Sidney Chapman> 10/24/23 8429 [facility] Work Phone: 1(478) 870-449605-30-2024 Progress note Author Sidney Chapman [facility] October 23, 2023 2:49pm Note Date/Time October 23, 2023 2:49p m [facility] [address] [place] [address] Cardiology Progress Note Signed Patient: Rachel Hollingsworth SR MR#: [id number] : 1935 Acct:[id number] Age/Sex: 88 / M Adm Date: 4 Loc: Room: [address] [place] [address] Type: ADM IN Attending Dr: Francia Kirby MD Copies to: ~ Date of Service: 10/23/2023 Subjective Principal diagnosis: Chest pain/angina Interval history: Patient's primary complaint today is tiredness. He does demonstrate what appears to be mild tachypnea and there may be an element of pulmonary vascular congestion. This is probably due to the fact that he has advanced renal failureand poor clearance of salt and water. Earlier this morning he had transient chest discomfort that went away with a single nitroglycerin. Several hours later, though, he developed the same chestpain after swallowing his morning meds. It sounds esophageal in nature. He states that ever since he had a stroke years ago he has had problems with esophageal dysmotility. I discussed with him his problems. He appears to have gastrointestinal bleedingsource unknown. I believe that because of this anticoagulant therapy should be stopped. I note it has been discontinued and I concur. Additionally I believe antiplatelet therapy should be interrupted at least for the short-term. Consider resuming aspirin later. Hopefully the cessation of aggressive DAPT therapy and/or anticoagulant therapy will prevent the blood loss that has been plaguing him for months or years. We discussed the chest discomfort. I believe it is probably noncardiac but it also could be due to collateral insufficiency compounded by severe anemia. I donot believe the angiographic evaluation and revascularization is prudent, because there is a high risk of a reversible kidney damage that would potentially necessitate lifelong dialysis. I discussed that with the patient yesterday and today and he wishes to avoid dialysis at all costs. It is very likely that his coronary event is completed. Specifically he probably occluded a small to moderate-sized vessel and/or bypass graft. Presently he has insufficient collaterals and this could cause some chest discomfort. Correcting it is accomplished by rate control (carvedilol) preload reduction (diuretics and nitrates) and also transfusion to maintain a hemoglobingreater than 10.0. I believe these conservative measures will stabilize his cardiac system and thus obviate the need for an angiographic evaluation and/or PCI which probably would cause irreversible renal failure. Because of this I still recommend a medical regimen. Exam Physical Exam Vital Signs: Temp Pulse Resp BP Pulse Ox O2 Del Method O2 Flow Rate 98.5 F 91 12 114/68 96 Nasal Cannula 5 10/23/23 11:15 10/23/23 11:15 10/23/23 11:15 10/23/23 11:15 10/23/23 11:15 10/23/23 11:15 10/23/23 11:15 HEENT Head: normal to inspection Ears: hearing grossly normal bilaterally Nose: external nose normal and nares normal Face and sinus: normal facial exam Mouth: oral mucosae normal and tongue normal Eyes Conjunctivae: conjunctivae normal Sclera: sclerae normal Neck Neck: normal visual inspection Carotids: normal carotid upstroke Lymphatic: no lymphadenopathy noted Chest Chest palpation & inspection: normal inspection of the chest Resp Other: Diminished breath sounds and some rales. Cardio Rate: regular rate Rhythm: regular rhythm Heart Sounds: S1 normal and S2 normal GI Inspection: normal to inspection Palpation: soft Skin General: no rashes or lesions noted Neuro General: patient alert, patient awake and patient oriented x3 Cognition: normal cognition Motor: muscle tone normal throughout Sensory Exam: no sensory deficits noted Objective Labs 10/23/23 04:55 10/23/23 04:55 Labs: Laboratory Results - last 24 hr 10/20/23 10/22/23 10/22/23 12:47 16:09 19:20 Corrected WBC Uncorrected WBC Count RBC Hgb 7.5 L Hct 21.9 L MCV MCH MCHC RDW Plt Count MPV Neut % (Auto) Lymph % (Auto) [place] % (Auto) Eos % (Auto) Baso % (Auto) Nucleat RBC Rel Count Neut # (Auto) Lymph # (Auto) [place] # (Auto) Eos # (Auto) Baso # (Auto) PHA Creatinine Clear Sodium Potassium Chloride Carbon Dioxide Anion Gap BUN Creatinine Est GFR (CKD-EPI) Glucose POC Glucose 301 Estimat Average Glucose 206 Hemoglobin A1c 8.8 H Calcium Phosphorus Albumin Blood Type Blood Type Recheck Antibody Screen Crossmatch ([facility]) 10/22/23 10/23/23 10/23/23 20:42 04:55 08:00 Corrected WBC 8.8 Uncorrected WBC Count 8.8 RBC 2.69 L Hgb 8.3 L Hct 24.4 L MCV 90.5 MCH 30.8 MCHC 34.0 RDW 15.7 H Plt Count 158 MPV 9.1 Neut % (Auto) 74.6 Lymph % (Auto) 13.0 [place] % (Auto) 9.3 Eos % (Auto) 2.5 Baso % (Auto) 0.6 Nucleat RBC Rel Count 0.0 Neut # (Auto) 6.6 Lymph # (Auto) 1.1 [place] # (Auto) 0.8 Eos # (Auto) 0.2 Baso # (Auto) 0.0 PHA Creatinine Clear 24.43 Sodium 137 Potassium 4.2 Chloride 102 Carbon Dioxide 26.5 Anion Gap 12.7 BUN 47 H Creatinine 2.53 H Est GFR (CKD-EPI) 24.063 Glucose 90 POC Glucose 243 141 Estimat Average Glucose Hemoglobin A1c Calcium 8.8 Phosphorus 3.3 Albumin 3.6 Blood Type Blood Type Recheck Antibody Screen Crossmatch ([facility]) 10/23/23 10/23/23 10/23/23 11:19 12:56 13:32 Corrected WBC Uncorrected WBC Count RBC Hgb Hct MCV MCH MCHC RDW Plt Count MPV Neut % (Auto) Lymph % (Auto) [place] % (Auto) Eos % (Auto) Baso % (Auto) Nucleat RBC Rel Count Neut # (Auto) Lymph # (Auto) [place] # (Auto) Eos # (Auto) Baso # (Auto) PHA Creatinine Clear Sodium Potassium Chloride Carbon Dioxide Anion Gap BUN Creatinine Est GFR (CKD-EPI) Glucose POC Glucose 224 Estimat Average Glucose Hemoglobin A1c Calcium Phosphorus Albumin Blood Type A Positive Blood Type Recheck A Positive Antibody Screen Negative Crossmatch ([facility]) See Detail A&P - Cardiology (1) NSTEMI (non-ST elevated myocardial infarction): Assessment/Problem Details: Patient's infarct has completed . I do not believe there is additional myocardium at risk. He could, though, have postinfarct angina due to collateralinsufficiency and also severe anemia. In this regard we will treat with rate control, preload reduction, and transfuse the patient to hemoglobin of 10. I do not feel that angiographic evaluation should be undertaken for fear that will cause irreversible renal failure necessitating lifelong dialysis. Code(s): I21.4 - Non-ST elevation (NSTEMI) myocardial infarction (2) Anemia: Assessment/Problem Details: I believe the patient's anemia is on the basis of gastrointestinal bleeding. Hestates has been a problem for a long time and the only intervention his PCP provided was iron supplementation. He never had EGD or colonoscopy. His stool has tested positive for blood. Because of this I believe that anticoagulant therapy should be stopped. We notethat he is in sinus rhythm on amiodarone and I believe that most of his stroke risk is mitigated by the latter day of maintenance of sinus rhythm on amiodarone hence I believe this agent should be continued and it will allow us to safely stop antithrombotic therapy Qualifiers: Anemia type: other cause Other causes of anemia: other cause, not classified Qualified Code(s): D64.89 - Other specified anemias Code(s): D64.9 - Anemia, unspecified (3) Hypertensive chronic kidney disease with stage 1 through stage 4 chronic kidney disease, or unspecified chronic kidney disease: Assessment/Problem Details: Patient has advanced renal failure which could be worsened by contrast exposure. Because of this I do not favor angiographic evaluation Code(s): I12.9 - Hypertensive chronic kidney disease with stage 1 through stage 4 chronickidney disease, or unspecified chronic kidney disease (4) CAD (coronary artery disease): Assessment/Problem Details: Longstanding. Bypass surgery 20 years ago. Qualifiers: Coronary Disease-Associated Artery/Lesion type: [place] artery Three Affiliated vs. transplanted heart: [place] heart Associated angina: unspecified whether angina present Qualified Code(s): I25.10 - Atherosclerotic heart disease of [place] coronary artery without angina pectoris Code(s): I25.10 - Atherosclerotic heart disease of [place] coronary artery without angina pectoris Plan Continue beta-blockade and nitrates. Diuresis to improve breathing but also facilitate preload reduction (and hence reduce the possibility of myocardial ischemia). Transfuse the patient to hemoglobin greater than 10.0. Diuresis as necessary. As before I have discussed the patient's options and he favors a conservative (noninvasive) approach to his problem avoiding the possibility of contrast- induced nephropathy and renal failure. Documented By: Sidney Chapman MD [id number] Signed By: <Electronically signed by MD Sidney Chapman> 10/23/23 1449 [facility] Work Phone: 1(101) 480-684405-30-2024 Progress note Author Scott Delgado [facility] October 23, 2023 11:34am Note Date/Time October 23, 2023 11:27 am [facility] [address] [place] [address] Nephrology Progress Note Signed Patient: Rachel Hollingsworth SR MR#: [id number] : 1935 Acct:[id number] Age/Sex: 88 / M Adm Date: 4 Loc: Room: [address] [place] [address] Type: ADM IN Attending Dr: Francia Kirby MD Copies to: ~ Date of Service: 10/23/2023 Subjective Subjective Narrative: This is a 88-year-old male with medical history of CAD s/p CABG in 2003, CKD, DM, HTN, HLD and A-fib presented to [place] with chest pain. He had a EKG showed diffuse ST depression. He was found to have anemia with hemoglobin 8 g/dL. He also found to have abnormal renal function with elevated serum creatinine 3 mg/dL and BUN 65 mg/dL. His chest x-ray showed cardiomegaly with interstitial infiltrate possibly due to CHF versus a multifocal pneumonia. White cell count was normal so no antibiotics were given. He was given blood transfusion and was transferred to the [facility] for further care. Patient reported to have a longstanding insulin-dependent type 2 diabetes mellitus and currently takes insulin. He denies any history of diabetic retinopathy. He reported that that he stopped following with his PCP and has not been seen close to a year. Upon review of his records, it appears the patient has a longstanding CKD and his serum creatinine was 2.1 mg in May 2023. He denies any evaluation by the contracts representative in the past. Nephrology is consulted for LILIANA on CKD. Interval history: IV fluid was stopped yesterday as the patient did not want to be a candidate forcardiac catheter intervention at this point. Renal function slightly better however it is about the same with creatinine 2.53mg/dL. No hyperkalemia or acidosis. Patient continues to have intermittent chest discomfort/chest pain. EKG this morning showed sinus tachycardia with right bundle branch block. Troponin has been trending down as of yesterday. Hemoglobin did drop down to 7.9 last night however it is up to 8.3 g/dL today. Hemoglobin has been dropping with and stool was positive for occult blood. Exam Physical Exam Vital Signs: Temp Pulse Resp BP Pulse Ox O2 Del Method O2 Flow Rate 36.9 C 91 12 114/68 96 Nasal Cannula 5 10/23/23 11:15 10/23/23 11:15 10/23/23 11:15 10/23/23 11:15 10/23/23 11:15 10/23/23 11:15 10/23/23 11:15 Narrative: Constitutional: Appears comfortable and not in distress HEENT: Mild pallor, no jaundice or cyanosis. Cardiovascular: RRR, normal S1-S2, no gallop or rub, No JVD Respiratory: Good bilateral air entry no wheezing or crackles Gastrointestinal: Soft, non tender, positive bowel sounds Extremities: Trace edema Skin: No rashes or bruises Neurology: Awake, alert, oriented ?3, No focal motor or sensory deficits Psych: Normal mood and affect Objective Intake and Output I&O: Intake & Output 10/20/23 10/21/23 10/22/23 10/23/23 23:59 23:59 23:59 23:59 Intake Total 680 / 680 850 / 850 1960 / 1960 120 / 120 Output Total 1550 / 1550 1750 / 1750 Balance 680 / 680 -700 / -700 210 / 210 120 / 120 Weight 97 kg 94.5 kg 97.2 kg 100 kg Meds and Allergies Meds: Active Medications Acetaminophen (Acetaminophen 325 Mg Tablet) 650 mg PO Q6HR PRN PRN Reason: Pain Scale 1 - 3 or fever Stop: 10/19/24 11:04 Alprazolam (Alprazolam 0.5 Mg Tablet) 0.5 mg PO Q6H PRN PRN Reason: Anxiety Stop: 04/20/24 11:02 Amiodarone HCl (Amiodarone 200 Mg Tablet) 200 mg PO BID [facility] Stop: 10/21/24 20:59 Last Admin: 10/23/23 09:35 Dose: 200 mg Atorvastatin Calcium (Atorvastatin 80 Mg Tablet) 80 mg PO DAILY [facility] Stop: 10/20/24 08:59 Last Admin: 10/23/23 09:35 Dose: 80 mg Carvedilol (Carvedilol 25 Mg Tablet) 25 mg PO BID.PC.BKFAST.SUPPER [facility] Stop: 10/21/24 17:59 Last Admin: 10/23/23 09:35 Dose: 25 mg Dextrose (Dextrose 50% In Water 25 Gm/50 Ml Syringe) 0 gm IV-PUSH PRN PRN PRN Reason: Hypoglycemia Stop: 10/19/24 12:08 Empagliflozin (Empagliflozin 10 Mg Tablet) 10 mg PO DAILY [facility] Stop: 10/20/24 08:59 Last Admin: 10/23/23 09:48 Dose: 10 mg Finasteride (Finasteride 5 Mg Tablet) 5 mg PO QHS [facility] Stop: 10/19/24 21:59 Last Admin: 10/22/23 21:08 Dose: 5 mg Fluoxetine HCl (Fluoxetine 10 Mg Capsule) 10 mg PO DAILY [facility] Stop: 10/20/24 08:59 Last Admin: 10/23/23 09:34 Dose: 10 mg Glucose (Dextrose 40% Gel 15 Gm Tube) 0 gm PO PRN PRN PRN Reason: Hypoglycemia Stop: 10/19/24 12:08 Hydralazine HCl (Hydralazine 20 Mg/Ml Vial) 10 mg IV-PUSH Q4H PRN PRN Reason: Hypertension Stop: 10/19/24 11:09 Magnesium Sulfate (Magnesium Sulf 2gm-*Swfi*) 2 gm in 50 mls @ 25 mls/hr IV DAILY PRN PRN Reason: Magnesium Level < 1.5 Stop: 10/19/24 11:09 Insulin Aspart (Insulin Aspart 300 Units/3 Ml Insuln.Pen) 0 units SUBCUT TID.WM.[facility]; Protocol Stop: 10/19/24 16:59 Last Admin: 10/23/23 09:44 Dose: Not Given Insulin Aspart Prota 70%/Aspart 30% (Insulin Aspart Protamin/Aspart 300 Units/3 Ml Insuln.Pen) 26 units SUBCUT BID.AC.BKFAST.SUPPER [facility] Stop: 10/19/24 16:29 Last Admin: 10/23/23 09:43 Dose: 26 units Isosorbide Mononitrate (Isosorbide Mononitrate 24hr Er 30 Mg Tab.Er.24h) 30 mg PO DAILY [facility] Stop: 10/20/24 08:59 Last Admin: 10/23/23 09:34 Dose: 30 mg Labetalol HCl (Labetalol 100 Mg/20 Ml Vial) 5 mg IV-PUSH Q4H PRN PRN Reason: Hypertension Stop: 10/19/24 10:54 Levothyroxine Sodium (Levothyroxine 75 Mcg Tablet) 75 mcg PO DAILY.629 [facility] Stop: 10/20/24 06:29 Last Admin: 10/23/23 05:37 Dose: 75 mcg Melatonin (Melatonin 5 Mg Tablet) 5 mg PO QHS PRN PRN Reason: Insomnia Stop: 10/19/24 11:09 Morphine Sulfate (Morphine Sulfate 4 Mg/Ml Cartridge) 2 mg IV-PUSH Q4H PRN PRN Reason: Pain Scale 8 - 10 Last Admin: 10/23/23 10:22 Dose: 2 mg Nitroglycerin (Nitroglycerin 0.4 Mg Tab.Subl) 0.4 mg SUBLINGUAL Q5M PRN PRN Reason: Chest Pain Stop: 10/19/24 10:47 Last Admin: 10/23/23 09:40 Dose: 0.4 mg Ondansetron HCl (Ondansetron 4 Mg/2 Ml Vial) 4 mg IV-PUSH Q8H PRN PRN Reason: Nausea And Vomiting Stop: 10/19/24 11:04 Pantoprazole Sodium (Pantoprazole 40 Mg Tablet.Dr) 40 mg PO DAILY.AC.BKFAST [facility] Stop: 10/20/24 07:29 Last Admin: 10/23/23 09:48 Dose: 40 mg Potassium Chloride (Potassium Chloride Er 20 Meq Tab.Er.Prt) 40 meq PO DAILY PRN PRN Reason: Hypokalemia Stop: 10/19/24 11:09 Tamsulosin HCl (Tamsulosin 0.4 Mg Cap.Er.24h) 0.4 mg PO DAILY [facility] Stop: 10/20/24 08:59 Last Admin: 10/23/23 09:34 Dose: 0.4 mg Allergies codeine Allergy (Unknown, Verified 10/21/23 12:01) Nightmare, bad dreams acetaminophen [From Tylenol] Adverse Reaction (Verified 10/21/23 12:01) Nightmare Results - Nephrology Labs 10/23/23 04:55 10/23/23 04:55 Labs: 10/23/23 04:55 BUN 47 H Creatinine 2.53 H Phosphorus 3.3 Albumin 3.6 Radiology Impressions Impressions - last 24 hours: Impressions Chest X-Ray 10/22/23 11:29 IMPRESSION: SMALL BILATERAL PLEURAL EFFUSIONS. NO CONSOLIDATION TO SUGGEST PNEUMONIA. Impression dictated by: Carlton Simon Jr., D.O.10/22/2023 4:11 PM Dictation Location: [place] [address] Chest X-Ray 10/23/23 05:00 IMPRESSION: DEVELOPING PARENCHYMAL CHANGES. Impression dictated by: Amber Archibald M.D.10/23/2023 6:52 AM Dictation Location: [place] [address] Any impression(s) listed above is documentation that was entered by the reading physician into a diagnostic report(s) for Rachel Hollingsworth SR. I have reviewed the report(s) and am incorporating any findings in the treatment plan of this patient where applicable. A&P - Nephrology Assessment/Plan (1) Acute kidney injury superimposed on CKD: Assessment/Problem Details: He has LILIANA on CKD possibly due to the symptomatic anemia or cardiorenal in the setting of ACS. Patient never had workup for CKD however its most likely diabetic nephropathy. (2) CKD (chronic kidney disease) stage 4, GFR 15-29 ml/min: Assessment/Problem Details: He has a CKD due to the longstanding DM and HTN baseline serum creatinine is around 2.1 mg/dL. (3) Anemia: Assessment/Problem Details: He has anemia and was transfused 1 unit of PRBC. Hemoglobin went up appropriately. (4) Type 2 diabetes mellitus with diabetic chronic kidney disease: Assessment/Problem Details: He has insulin-dependent type 2 diabetes mellitus was taking NovoLog at home. (5) Hypertensive chronic kidney disease with stage 1 through stage 4 chronic kidney disease, or unspecified chronic kidney disease: Assessment/Problem Details: Blood pressure is controlled. Valsartan was stopped on admission because of elevated creatinine. Plan * Hemoglobin did drop with questionable GI bleeding. Stool was positive for workup blood. Plavix and aspirin are on hold. Since the patient is not going to have cardiac cath, will restart his home dose bumetanide 1 mg twice a day to avoid precipitation of CHF. Patient has small bilateral pleural effusion. * Valsartan is on hold. Amlodipine was stopped at the blood pressure was low to improve renal and cardiac perfusion. Patient's continue to have chest discomfort. He will be evaluated again by cardiology and to continue conservative measures only or reevaluate for intervention. * Check daily intake, output, renal panel and CBC Documented By: Scott Delgado MD 10/23/23 1123 Signed By: <Electronically signed by MD Scott Delgado> 10/23/23 1134 [facility] Work Phone: 1(145) 402-672305-30-2024 Progress note Author Francia Kirby [facility] October 23, 2023 10:42am Note Date/Time October 23, 2023 10:33 am [facility] [address] [place] [address] Hospitalist Progress Note Signed Patient: Rachel Hollingsworth MR#: [id number] : 1935 Acct:[id number] Age/Sex: 88 / M Adm Date: 4 Loc: Room: [address] [place] [address] Type: ADM IN Attending Dr: Francia Kirby MD Copies to: ~ Date of Service: 10/23/2023 Subjective Subjective Narrative: Seen and examined Clinically stable Had multiple episodes of panic attack Complain of shortness of breath No chest pain Exam Physical Exam Vital Signs: Temp Pulse Resp BP Pulse Ox O2 Del Method O2 Flow Rate 98.0 F 103 H 20 128/74 93 L Nasal Cannula 5 10/23/23 08:00 10/23/23 09:40 10/23/23 08:00 10/23/23 09:40 10/23/23 08:00 10/23/23 08:00 10/23/23 08:00 Narrative: General patient laying in bed in no acute distress alert awake oriented x3 HEENT PERRLA Neck supple no JVD no carotid bruit CVS S1-S2 regular rate and rhythm no murmur no gallop Chest clear to auscultation percussion Abdomen soft bowel sounds normoactive no rebound no guarding Extremities no stenosis no clubbing no edema Musculoskeletal exam normal no joint effusion Neurologic exam oriented x3 alert awake no focal left Psychiatry: Normal insight and judgment Skin: no rash or lesions Objective Lab Results 10/23/23 04:55 10/23/23 04:55 Microbiology Results Microbiology 10/23/23 00:10 Stool Stool Occult Blood (LUL) - Final Meds Allergies and Active Meds Allergies codeine Allergy (Unknown, Verified 10/21/23 12:01) Nightmare, bad dreams acetaminophen [From Tylenol] Adverse Reaction (Verified 10/21/23 12:01) Nightmare Active Meds: Active Medications Generic Name Dose Route Start Last Admin Trade Name Freq PRN Reason Stop Dose Admin Acetaminophen 650 mg 10/20/23 11:05 Acetaminophen 325 Mg Tablet PO 10/19/24 11:04 Q6HR PRN Pain Scale 1 - 3 or fever Amiodarone HCl 200 mg 10/22/23 21:00 10/23/23 09:35 Amiodarone 200 Mg Tablet PO 10/21/24 20:59 200 mg BID [facility] Administration Atorvastatin Calcium 80 mg 10/21/23 09:00 10/23/23 09:35 Atorvastatin 80 Mg Tablet PO 10/20/24 08:59 80 mg DAILY [facility] Administration Carvedilol 25 mg 10/22/23 18:00 10/23/23 09:35 Carvedilol 25 Mg Tablet PO 10/21/24 17:59 25 mg BID.PC.BKFAST.SUPPER [facility] Administration Dextrose 0 gm 10/20/23 12:09 Dextrose 50% In Water 25 Gm/50 Ml Syringe IV-PUSH 10/19/24 12:08 PRN PRN Hypoglycemia Empagliflozin 10 mg 10/21/23 09:00 10/23/23 09:48 Empagliflozin 10 Mg Tablet PO 10/20/24 08:59 10 mg DAILY [facility] Administration Finasteride 5 mg 10/20/23 22:00 10/22/23 21:08 Finasteride 5 Mg Tablet PO 10/19/24 21:59 5 mg QHS [facility] Administration Fluoxetine HCl 10 mg 10/21/23 09:00 10/23/23 09:34 Fluoxetine 10 Mg Capsule PO 10/20/24 08:59 10 mg DAILY [facility] Administration Glucose 0 gm 10/20/23 12:09 Dextrose 40% Gel 15 Gm Tube PO 10/19/24 12:08 PRN PRN Hypoglycemia Hydralazine HCl 10 mg 10/20/23 11:10 Hydralazine 20 Mg/Ml Vial IV-PUSH 10/19/24 11:09 Q4H PRN Hypertension Magnesium Sulfate 2 gm in 50 mls @ 25 mls/hr 10/20/23 11:10 Magnesium Sulf 2gm-*Swfi* IV 10/19/24 11:09 DAILY PRN Magnesium Level < 1.5 Insulin Aspart 0 units 10/20/23 17:00 10/23/23 09:44 Insulin Aspart 300 Units/3 Ml Insuln.Pen SUBCUT 10/19/24 16:59 Not Given TID.WM.HS [facility] Protocol Insulin Aspart Prota 70%/Aspart 30% 26 units 10/20/23 16:30 10/23/23 09:43 Insulin Aspart Protamin/Aspart 300 Units/3 Ml Insuln.Pen SUBCUT 10/19/24 16:29 26 units BID.AC.BKFAST.SUPPER [facility] Administration Isosorbide Mononitrate 30 mg 10/21/23 09:00 10/23/23 09:34 Isosorbide Mononitrate 24hr Er 30 Mg Tab.Er.24h PO 10/20/24 08:59 30 mg DAILY [facility] Administration Labetalol HCl 5 mg 10/20/23 10:55 Labetalol 100 Mg/20 Ml Vial IV-PUSH 10/19/24 10:54 Q4H PRN Hypertension Levothyroxine Sodium 75 mcg 10/21/23 06:30 10/23/23 05:37 Levothyroxine 75 Mcg Tablet PO 10/20/24 06:29 75 mcg DAILY.0630 [facility] Administration Melatonin 5 mg 10/20/23 11:10 Melatonin 5 Mg Tablet PO 10/19/24 11:09 QHS PRN Insomnia Morphine Sulfate 2 mg 10/23/23 05:29 10/23/23 10:22 Morphine Sulfate 4 Mg/Ml Cartridge IV-PUSH 2 mg Q4H PRN Administration Pain Scale 8 - 10 Nitroglycerin 0.4 mg 10/20/23 10:48 10/23/23 09:40 Nitroglycerin 0.4 Mg Tab.Subl SUBLINGUAL 10/19/24 10:47 0.4 mg Q5M PRN Administration Chest Pain Ondansetron HCl 4 mg 10/20/23 11:05 Ondansetron 4 Mg/2 Ml Vial IV-PUSH 10/19/24 11:04 Q8H PRN Nausea And Vomiting Pantoprazole Sodium 40 mg 10/21/23 07:30 10/23/23 09:48 Pantoprazole 40 Mg Tablet.Dr PO 10/20/24 07:29 40 mg DAILY.AC.BKFAST [facility] Administration Potassium Chloride 40 meq 10/20/23 11:10 Potassium Chloride Er 20 Meq Tab.Er.Prt PO 10/19/24 11:09 DAILY PRN Hypokalemia Tamsulosin HCl 0.4 mg 10/21/23 09:00 10/23/23 09:34 Tamsulosin 0.4 Mg Cap.Er.24h PO 10/20/24 08:59 0.4 mg DAILY [facility] Administration A&P - Hospitalist Assessment/Plan (1) NSTEMI (non-ST elevated myocardial infarction): (2) CAD (coronary artery disease): (3) CKD (chronic kidney disease) stage 3, GFR 30-59 ml/min: Plan: LILIANA on CKD 4 (4) Diabetes: (5) Anemia in CKD (chronic kidney disease): (6) Hypertension: (7) Hypothyroid: (8) GERD (gastroesophageal reflux disease): Plan Non-STEMI Seen and examined Not doing well Had multiple episodes of panic attacks Complain of shortness of breath On NC at 2 liter Saturation is 93% No chest pain Kidney function is better today Had melena Plavix and Eliquis were held H/H 8.08/16.4 Losartan still on hold Nephrology is following Cardiology is following No plan for cardiac cath at this time due to worsening kidney function Possible upper GI bleeding Plavix and Eliquis were held H/H are stable Protonix PO daily H/H in am Hypertension: Hold valsartan and continue with no Hyperlipidemia: Continue with Lipitor daily Diabetes type2: Insulin sliding scale/Jardiance Morbid obese: Lifestyle modification Documented By: Francia Kirby MD 10/23/23 1030 Signed By: <Electronically signed by rFancia Kirby MD> 10/23/23 1042 [facility] Work Phone: [phone]) 330-471305-29-2024 Progress note Author Jonathanfrederick Delgado [facility] October 22, 2023 2:07pm Note Date/Time October 22, 2023 2:01p balaji [facility] [address] [place], [place] [id number] Nephrology Progress Note Signed Patient: Rachel Hollingsworth SR MR#: [id number] : 1935 Acct:[id number] Age/Sex: 88 / M Adm Date: 4 Loc: 4 Room: 3Q5650-9 Type: ADM IN Attending Dr: Francia Kirby MD Copies to: ~ Date of Service: 10/22/2023 Subjective Subjective Narrative: This is a 88-year-old male with medical history of CAD s/p CABG in 2003, CKD, DM, HTN, HLD and A-fib presented to [facility] with chest pain. He had a EKG showed diffuse ST depression. He was found to have anemia with hemoglobin 8 g/dL. He also found to have abnormal renal function with elevated serum creatinine 3 mg/dL and BUN 65 mg/dL. His chest x-ray showed cardiomegaly with interstitial infiltrate possibly due to CHF versus a multifocal pneumonia. White cell count was normal so no antibiotics were given. He was given blood transfusion and was transferred to the [facility] for further care. Patient reported to have a longstanding insulin-dependent type 2 diabetes mellitus and currently takes insulin. He denies any history of diabetic retinopathy. He reported that that he stopped following with his PCP and has not been seen close to a year. Upon review of his records, it appears the patient has a longstanding CKD and his serum creatinine was 2.1 mg in May 2023. He denies any evaluation by the contracts representative in the past. Nephrology is consulted for LILIANA on CKD. Interval history: Patient was started on gentle hydration yesterday in anticipation of cardiac cath need to be done by the end of this week. Creatinine unfortunately continues to rise 2.75 mg/dL. He has normal potassium. No acidosis. Renal ultrasound showed no obstructive uropathy however he has BPH. He currently has Tenorio catheter. Patient has mild shortness of breath. He has intermittent mild chest pain. He was started on heparin drip according to ACS protocol, he stated that heparin onhold because of blood is too thin. He is being evaluated by cardiology and the patient will need cardiac cath once renal function stabilized. Blood pressure did improve with IV fluid 134/76. Pulse ox 96% on room air Exam Physical Exam Vital Signs: Temp Pulse Resp BP Pulse Ox O2 Del Method O2 Flow Rate 36.6 C 82 18 134/76 96 Room Air 1 10/22/23 12:00 10/22/23 12:00 10/22/23 12:00 10/22/23 12:00 10/22/23 12:10/22/23 12:00 10/22/23 08:00 Narrative: Constitutional: Appears comfortable and not in distress HEENT: Mild pallor, no jaundice or cyanosis. Cardiovascular: RRR, normal S1-S2, no gallop or rub, No JVD Respiratory: Good bilateral air entry no wheezing or crackles Gastrointestinal: Soft, non tender, positive bowel sounds Extremities: Trace edema Skin: No rashes or bruises Neurology: Awake, alert, oriented ?3, No focal motor or sensory deficits Psych: Normal mood and affect Objective Intake and Output I&O: Intake & Output 10/19/23 10/20/23 10/21/23 10/22/23 23:59 23:59 23:59 23:59 Intake Total 680 / 680 850 / 850 1600 / 1600 Output Total 1550 / 1550 850 / 850 Balance 680 / 680 -700 / -700 750 / 750 Weight 97 kg 94.5 kg 97.2 kg Meds and Allergies Meds: Active Medications Acetaminophen (Acetaminophen 325 Mg Tablet) 650 mg PO Q6HR PRN PRN Reason: Pain Scale 1 - 3 or fever Stop: 10/19/24 11:04 Amiodarone HCl (Amiodarone 200 Mg Tablet) 200 mg PO BID [facility] Stop: 10/21/24 20:59 Atorvastatin Calcium (Atorvastatin 80 Mg Tablet) 80 mg PO DAILY [facility] Stop: 10/20/24 08:59 Last Admin: 10/22/23 09:07 Dose: 80 mg Carvedilol (Carvedilol 25 Mg Tablet) 25 mg PO BID.PC.BKFAST.SUPPER [facility] Stop: 10/21/24 17:59 Clopidogrel Bisulfate (Clopidogrel Bisulfate 75 Mg Tablet) 75 mg PO DAILY [facility] Stop: 10/20/24 08:59 Last Admin: 10/22/23 09:09 Dose: 75 mg Dextrose (Dextrose 50% In Water 25 Gm/50 Ml Syringe) 0 gm IV-PUSH PRN PRN PRN Reason: Hypoglycemia Stop: 10/19/24 12:08 Empagliflozin (Empagliflozin 10 Mg Tablet) 10 mg PO DAILY [facility] Stop: 10/20/24 08:59 Last Admin: 10/22/23 09:07 Dose: 10 mg Finasteride (Finasteride 5 Mg Tablet) 5 mg PO QHS [facility] Stop: 10/19/24 21:59 Last Admin: 10/21/23 21:48 Dose: 5 mg Fluoxetine HCl (Fluoxetine 10 Mg Capsule) 10 mg PO DAILY [facility] Stop: 10/20/24 08:59 Last Admin: 10/22/23 09:06 Dose: 10 mg Glucose (Dextrose 40% Gel 15 Gm Tube) 0 gm PO PRN PRN PRN Reason: Hypoglycemia Stop: 10/19/24 12:08 Heparin Sodium (Porcine) (Heparin *Protocol Bolus* 5,000 Unit/Ml Vial) 3,200 unit IV-PUSH PROTOCOL PRN PRN Reason: PTT 40-53 Stop: 10/19/24 19:23 Heparin Sodium (Porcine) (Heparin *Protocol Bolus* 5,000 Unit/Ml Vial) 4,000 unit IV-PUSH PROTOCOL PRN PRN Reason: PTT < 40 Stop: 10/19/24 19:23 Last Admin: 10/21/23 03:23 Dose: 4,000 unit Hydralazine HCl (Hydralazine 20 Mg/Ml Vial) 10 mg IV-PUSH Q4H PRN PRN Reason: Hypertension Stop: 10/19/24 11:09 Magnesium Sulfate (Magnesium Sulf 2gm-*Swfi*) 2 gm in 50 mls @ 25 mls/hr IV DAILY PRN PRN Reason: Magnesium Level < 1.5 Stop: 10/19/24 11:09 Heparin Sodium/Sodium Chloride (Heparin) 25,000 unit in 250 mls @ 10 mls/hr IV .Q24H [facility]; Protocol Stop: 10/19/24 19:29 Last Titration: 10/22/23 12:11 Dose: 1,100 units/hr, 11 mls/hr Sodium Bicarbonate 100 meq/ (Sodium Chloride) 1,100 mls @ 75 mls/hr IV .[id number] Stop: 10/20/24 17:29 Last Admin: 10/22/23 11:28 Dose: 75 mls/hr Insulin Aspart (Insulin Aspart 300 Units/3 Ml Insuln.Pen) 0 units SUBCUT TID..[facility]; Protocol Stop: 10/19/24 16:59 Last Admin: 10/22/23 09:10 Dose: Not Given Insulin Aspart Prota 70%/Aspart 30% (Insulin Aspart Protamin/Aspart 300 Units/3 Ml Insuln.Pen) 26 units SUBCUT BID.AC.ERI.SUPPER [facility] Stop: 10/19/24 16:29 Last Admin: 10/22/23 09:11 Dose: 26 units Isosorbide Mononitrate (Isosorbide Mononitrate 24hr Er 30 Mg Tab.Er.24h) 30 mg PO DAILY [facility] Stop: 10/20/24 08:59 Last Admin: 10/22/23 09:06 Dose: 30 mg Labetalol HCl (Labetalol 100 Mg/20 Ml Vial) 5 mg IV-PUSH Q4H PRN PRN Reason: Hypertension Stop: 10/19/24 10:54 Levothyroxine Sodium (Levothyroxine 75 Mcg Tablet) 75 mcg PO DAILY.0630 [facility] Stop: 10/20/24 06:29 Last Admin: 10/22/23 06:13 Dose: 75 mcg Melatonin (Melatonin 5 Mg Tablet) 5 mg PO QHS PRN PRN Reason: Insomnia Stop: 10/19/24 11:09 Morphine Sulfate (Morphine Sulfate 4 Mg/Ml Cartridge) 4 mg IV-PUSH Q4H PRN PRN Reason: Pain Scale 8 - 10 Nitroglycerin (Nitroglycerin 0.4 Mg Tab.Subl) 0.4 mg SUBLINGUAL Q5M PRN PRN Reason: Chest Pain Stop: 10/19/24 10:47 Ondansetron HCl (Ondansetron 4 Mg/2 Ml Vial) 4 mg IV-PUSH Q8H PRN PRN Reason: Nausea And Vomiting Stop: 10/19/24 11:04 Pantoprazole Sodium (Pantoprazole 40 Mg Tablet.Dr) 40 mg PO DAILY.AC.ERI [facility] Stop: 10/20/24 07:29 Last Admin: 10/22/23 09:08 Dose: 40 mg Potassium Chloride (Potassium Chloride Er 20 Meq Tab.Er.Prt) 40 meq PO DAILY PRN PRN Reason: Hypokalemia Stop: 10/19/24 11:09 Sodium Zirconium Cyclosilicate (Sodium Zirconium Cyclosilicate 10 Gm Powd.Pack) 10 gm PO TID [facility]; Protocol Stop: 10/23/23 09:01 Last Admin: 10/22/23 09:04 Dose: 10 gm Tamsulosin HCl (Tamsulosin 0.4 Mg Cap.Er.24h) 0.4 mg PO DAILY [facility] Stop: 10/20/24 08:59 Last Admin: 10/22/23 09:06 Dose: 0.4 mg Allergies codeine Allergy (Unknown, Verified 10/21/23 12:01) Nightmare, bad dreams acetaminophen [From Tylenol] Adverse Reaction (Verified 10/21/23 12:01) Nightmare Results - Nephrology Labs 10/21/23 02:10 10/22/23 05:17 Labs: 10/21/23 10/22/23 19:15 05:17 BUN 51 H Creatinine 2.75 H Phosphorus 3.7 Albumin 3.3 L Urine Color Yellow Urine Appearance Clear Urine pH 5.5 Ur Specific Harrells 1.020 Urine Protein 100 H Urine Glucose (UA) >=1000 H Urine Ketones Negative Urine Occult Blood Negative Urine Nitrite Negative Ur Leukocyte Esterase Negative Urine RBC 10-19 H Urine WBC None seen Urine Bacteria None seen Radiology Impressions Impressions - last 24 hours: Impressions Renal Ultrasound 10/21/23 16:55 IMPRESSION: NO OBSTRUCTIVE UROPATHY. SMALL RENAL CYSTS AND INDETERMINATE LEFT UPPER POLE HYPOECHOIC AREA. PROSTATE HYPERTROPHY VERSUS BLADDER MASS. CORRELATION AND FOLLOW-UP WILL BE NEEDED. Impression dictated by: Amber Archibald M.D.10/21/2023 9:04 PM Dictation Location: [place] [address] Any impression(s) listed above is documentation that was entered by the reading physician into a diagnostic report(s) for Rachel Hollingsworth SR. I have reviewed the report(s) and am incorporating any findings in the treatment plan of this patient where applicable. A&P - Nephrology Assessment/Plan (1) Acute kidney injury superimposed on CKD: Assessment/Problem Details: He has LILIANA on CKD possibly due to the symptomatic anemia or cardiorenal in the setting of ACS. Patient never had workup for CKD however its most likely diabetic nephropathy. (2) CKD (chronic kidney disease) stage 4, GFR 15-29 ml/min: Assessment/Problem Details: He has a CKD due to the longstanding DM and HTN baseline serum creatinine is around 2.1 mg/dL. (3) Anemia: Assessment/Problem Details: He has anemia and was transfused 1 unit of PRBC. Hemoglobin went up appropriately. (4) Type 2 diabetes mellitus with diabetic chronic kidney disease: Assessment/Problem Details: He has insulin-dependent type 2 diabetes mellitus was taking NovoLog at home. (5) Hypertensive chronic kidney disease with stage 1 through stage 4 chronic kidney disease, or unspecified chronic kidney disease: Assessment/Problem Details: Blood pressure is controlled. Valsartan was stopped on admission because of elevated creatinine. Plan * Patient was started on gentle hydration yesterday however creatinine is up despite better blood pressure and increased urine output. I am expecting that serum creatinine will stabilize and improve. Patient was seen by cardiology and considering high risk of contrast and anemia with possible active GI bleeding. Patient is asymptomatic and possibly had fully infarcted and currently has no symptoms. Cardiology will continue medical therapy only and forego intervention. Will stop IV fluid for concern about precipitating CHF. * Valsartan is on hold. Amlodipine was stopped as well to improve renal perfusion * Continue insulin adjust the dose as needed to keep the blood sugar between 100 150 mg/dL. * Check daily intake, output, renal panel and CBC and plan for cardiac cath when renal function stabilizes possibly in 2 to 3 days. * Chest x-ray was done today I did review with with no evidence of pulmonary congestion however official report is pending. Will monitor renal panel and CBC. Patient has mild anemia in the setting of chronic kidney disease with low iron stores. Stool for workup blood was ordered by Dr. Chapman. Documented By: Scott Delgado MD 10/22/23 0891 Signed By: <Electronically signed by MD Scott Delgado> 10/22/23 5774 [facility] Work Phone: 1(654) 336-733705-29-2024 Progress note Author Sidney Chapman [facility] October 22, 2023 11:38am Note Date/Time October 22, 2023 11:38 am [facility] [address] [place] [address] Cardiology Progress Note Signed Patient: Rachel Hollingsworth MR#: [id number] : 1935 Acct:[id number] Age/Sex: 88 / M Adm Date: 4 Loc: 4 Room: 2G3624-6 Type: ADM IN Attending Dr: Francia Kirby MD Copies to: ~ Date of Service: 10/22/2023 Subjective Principal diagnosis: Chest pain/angina Interval history: Patient seen by me for the first time. Previously seen by Dr. Vitcor and Dr. Hess. Patient presented several days ago with acute coronary syndrome. Troponins havepeaked and now are falling. He has an inferior wall motion abnormality consistent with an age-indeterminate infarct. Most likely an occluded graft or [place] vessel. When he presented he was very anemic and he was transfused. Angiographic evaluation was delayed because of concerns revolving around anemia and/or bleeding. Also severe renal insufficiency noted. I discussed both of these matters with the patient. Apparently he is recurrently anemic. The solution provided to him by his healthcare provider was on iron supplementation. He is never had a EGD or colonoscopy to identify why he is recurrently anemic. This simply provide his iron supplementation. He was aware of his renal insufficiency but not how bad it was. We discussed this in detail. Specifically I expressed significant concern regarding angiographic evaluation and the necessary contrast material to do so. I have very high probability of renal injury and/or renal failure necessitating dialysis. The patient's was on dialysis for 5 years and he states that it was sheer hell . Because of this he is very fearful of renal failure. 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 He has had no postinfarct heart failure or arrhythmias. The probability that he has disease amenable to intervention is low, and the probability of renal failure is high. Because of this he and I have elected to forego angiographic evaluation and instead intensify his medical therapy. In this regard we will intensify amiodarone in order to maintain sinus rhythm. This was started last month by Dr. Calloway and fortuitously he has converted. We will discontinue amlodipine because it is of no benefit from a cardiac standpoint. Will double his carvedilol instead. Other medications will be continued as is. I believe chest x-ray should be done to exclude heart failure. Lung sounds are distant. Will defer to nephrology in regards to adjusting his medical therapy. If necessary we will not reinstitute amlodipine but instead use hydralazine for blood pressure control. Lastly we will order stool for Hemoccult. I believe that when the patient is stable (in 6 to 12 weeks) he should undergo EGD and colonoscopy to evaluate for the his unexplained blood loss. It is my hope that maintaining sinus rhythm with amiodarone could ultimately allow us to forego treatment with Eliquis and/or Plavix. Exam Physical Exam Vital Signs: Temp Pulse Resp BP Pulse Ox O2 Del Method O2 Flow Rate 97.9 F 80 18 134/76 94 L Nasal Cannula 1 10/22/23 08:00 10/22/23 08:00 10/22/23 08:00 10/22/23 08:00 10/22/23 08:00 10/22/23 08:00 10/22/23 08:00 HEENT Head: normal to inspection Ears: hearing grossly normal bilaterally Nose: external nose normal and nares normal Face and sinus: normal facial exam Mouth: oral mucosae normal and tongue normal Eyes Conjunctivae: conjunctivae normal Sclera: sclerae normal Neck Neck: normal visual inspection Carotids: normal carotid upstroke Lymphatic: no lymphadenopathy noted Chest Chest palpation & inspection: normal inspection of the chest Resp Effort & Inspection: normal respiratory effort Auscultation: clear to auscultation bilaterally Cardio Rate: regular rate Rhythm: regular rhythm Heart Sounds: S1 normal and S2 normal GI Inspection: normal to inspection Palpation: soft Skin General: no rashes or lesions noted Neuro General: patient alert, patient awake and patient oriented x3 Cognition: normal cognition Motor: muscle tone normal throughout Sensory Exam: no sensory deficits noted Objective Labs 10/21/23 02:10 10/22/23 05:17 Labs: Laboratory Results - last 24 hr 10/21/23 10/21/23 10/21/23 10:25 11:49 16:51 APTT 65.3 H PHA Creatinine Clear Sodium Potassium Chloride Carbon Dioxide Anion Gap BUN Creatinine Est GFR (CKD-EPI) Glucose POC Glucose 87 POC Glucose Comment Glu2: cleaned meter Calcium Phosphorus Total Creatine Kinase 191 Troponin I High Sens 7811.7 H* Albumin Urine Color Urine Appearance Urine pH Ur Specific Harrells Urine Protein Urine Glucose (UA) Urine Ketones Urine Occult Blood Urine Nitrite Urine Bilirubin Urine Urobilinogen Ur Leukocyte Esterase Urine RBC Urine WBC Ur Squamous Epith Cells Urine Bacteria Hyaline Casts Ur Random Creatinine U Random Total Protein 10/21/23 10/21/23 10/21/23 17:13 19:15 20:33 APTT PHA Creatinine Clear Sodium Potassium Chloride Carbon Dioxide Anion Gap BUN Creatinine Est GFR (CKD-EPI) Glucose POC Glucose 258 185 POC Glucose Comment Glu2: cleaned meter Glu2: cleaned meter Calcium Phosphorus Total Creatine Kinase Troponin I High Sens Albumin Urine Color Yellow Urine Appearance Clear Urine pH 5.5 Ur Specific Harrells 1.020 Urine Protein 100 H Urine Glucose (UA) >=1000 H Urine Ketones Negative Urine Occult Blood Negative Urine Nitrite Negative Urine Bilirubin Negative Urine Urobilinogen Normal Ur Leukocyte Esterase Negative Urine RBC 10-19 H Urine WBC None seen Ur Squamous Epith Cells None seen Urine Bacteria None seen Hyaline Casts 0-8 Ur Random Creatinine 96.00 U Random Total Protein 132 H 10/22/23 10/22/23 10/22/23 05:17 07:18 08:05 APTT 103.8 H* 94.2 H* PHA Creatinine Clear 22.17 Sodium 137 Potassium 4.5 Chloride 105 Carbon Dioxide 25.7 Anion Gap 10.8 BUN 51 H Creatinine 2.75 H Est GFR (CKD-EPI) 21.771 Glucose 89 POC Glucose 95 POC Glucose Comment Calcium 8.3 L Phosphorus 3.7 Total Creatine Kinase Troponin I High Sens Albumin 3.3 L Urine Color Urine Appearance Urine pH Ur Specific Harrells Urine Protein Urine Glucose (UA) Urine Ketones Urine Occult Blood Urine Nitrite Urine Bilirubin Urine Urobilinogen Ur Leukocyte Esterase Urine RBC Urine WBC Ur Squamous Epith Cells Urine Bacteria Hyaline Casts Ur Random Creatinine U Random Total Protein A&P - Cardiology (1) NSTEMI (non-ST elevated myocardial infarction): Assessment/Problem Details: Late presentation non-STEMI. I believe his infarct is completed. It appears hesuffered an inferior infarct. The probability of benefit from an angiographic evaluation and ad hoc PCI appears to be low. Also said angiographic evaluation and intervention would carry with it a high risk of acute renal failure necessitating dialysis. The patient does not wish to undergo dialysis and henceI recommend a conservative approach to his CAD Code(s): I21.4 - Non-ST elevation (NSTEMI) myocardial infarction (2) Paroxysmal atrial fibrillation: Assessment/Problem Details: Paroxysmal atrial fibrillation has successfully converted to sinus rhythm with the reimplementation of amiodarone by Dr. Calloway 6 to 7 weeks ago. Continue same at a higher dose to ensure the maintenance of sinus rhythm. Doing so may ultimately facilitate cessation of antithrombotic therapy. Code(s): I48.0 - Paroxysmal atrial fibrillation (3) Chronic anticoagulation: Assessment/Problem Details: Patient appears been chronically anticoagulated but other physicians and other communities (not Dr. Calloway). I presume this to be on the basis of her previous stroke that he suffered about 5 years ago. I believe that it is possible to forego anticoagulant therapy by converting and maintaining sinus rhythm. Most of the risk of stroke would be mitigated by permanent maintenance of sinus rhythm. Cessation of antithrombotic therapy may prove necessary if thepatient has refractory ongoing gastrointestinal bleeding that cannot be addressed resolved or diagnosed. Code(s): Z79.01 - nursing home (current) use of anticoagulants (4) Venous stasis dermatitis: Assessment/Problem Details: A chronic and recurring problem for the patient. He brought it up spontaneously. I note he is on amlodipine and tamsulosin both of which make it worse. Will stop amlodipine. Will leave tamsulosin in place because it may help with prostatism and urinary retention. This in turn may be affecting his renal failure Code(s): I87.2 - Venous insufficiency (chronic) (peripheral) (5) CKD (chronic kidney disease) stage 4, GFR 15-29 ml/min: Assessment/Problem Details: Advanced renal insufficiency puts the patient at high risk for complete renal failure and dialysis following an angiographic procedure. Because of this I recommended conservative noninterventional approach to his recent non-ST segmentelevation PR Code(s): N18.4 - Chronic kidney disease, stage 4 (severe) (6) Anemia: Assessment/Problem Details: Patient appears of had no workup. It is very possible he is having GI bleeding either upper or lower. If and/or when stable consider EGD and colonoscopy. Qualifiers: Anemia type: other cause Other causes of anemia: other cause, not classified Qualified Code(s): D64.89 - Other specified anemias Code(s): D64.9 - Anemia, unspecified Plan For now discontinue amlodipine, intensify carvedilol, and intensify amiodarone. Chest x-ray to exclude heart failure Optimize hemodynamic management. Defer to nephrology in regards to some of his medications but if blood pressure is problematic I would institute hydralazine. Documented By: Sidney Chapman MD [id number] Signed By: <Electronically signed by MD Sidney Chapman> 10/22/23 113[address] [facility] Work Phone: [phone]) 335-819705-29-2024 Progress note Author Francia Kirby [facility] October 22, 2023 10:31am Note Date/Time October 22, 2023 10:31 am [facility] [address] [place] [address] Hospitalist Progress Note Signed Patient: Rachel Hollingsworth SR MR#: [id number] : 1935 Acct:[id number] Age/Sex: 88 / M Adm Date: 4 Loc: Room: [address] [place] [address] Type: ADM IN Attending Dr: rFancia Kirby MD Copies to: ~ Date of Service: 10/22/2023 Subjective Subjective Narrative: Seen and examined Clinically stable Complain of shortness of breath No chest pain Exam Physical Exam Vital Signs: Temp Pulse Resp BP Pulse Ox O2 Del Method O2 Flow Rate 97.9 F 80 18 134/76 94 L Nasal Cannula 1 10/22/23 08:00 10/22/23 08:00 10/22/23 08:00 10/22/23 08:00 10/22/23 08:00 10/22/23 08:00 10/22/23 08:00 Narrative: General patient laying in bed in no acute distress alert awake oriented x3 HEENT PERRLA Neck supple no JVD no carotid bruit CVS S1-S2 regular rate and rhythm no murmur no gallop Chest clear to auscultation percussion Abdomen soft bowel sounds normoactive no rebound no guarding Extremities no stenosis no clubbing no edema Musculoskeletal exam normal no joint effusion Neurologic exam oriented x3 alert awake no focal left Psychiatry: Normal insight and judgment Skin: no rash or lesions Objective Lab Results 10/21/23 02:10 10/22/23 05:17 Meds Allergies and Active Meds Allergies codeine Allergy (Unknown, Verified 10/21/23 12:01) Nightmare, bad dreams acetaminophen [From Tylenol] Adverse Reaction (Verified 10/21/23 12:01) Nightmare Active Meds: Active Medications Generic Name Dose Route Start Last Admin Trade Name Carlo PRN Reason Stop Dose Admin Acetaminophen 650 mg 10/20/23 11:05 Acetaminophen 325 Mg Tablet PO 10/19/24 11:04 Q6HR PRN Pain Scale 1 - 3 or fever Amiodarone HCl 200 mg 10/21/23 09:00 10/22/23 09:08 Amiodarone 200 Mg Tablet PO 10/20/24 08:59 200 mg DAILY NILSON Administration Amlodipine Besylate 5 mg 10/21/23 09:00 10/22/23 09:08 Amlodipine 5 Mg Tablet PO 10/20/24 08:59 5 mg DAILY NILSON Administration Atorvastatin Calcium 80 mg 10/21/23 09:00 10/22/23 09:07 Atorvastatin 80 Mg Tablet PO 10/20/24 08:59 80 mg DAILY NILSON Administration Carvedilol 12.5 mg 10/20/23 18:00 10/22/23 09:07 Carvedilol 12.5 Mg Tablet PO 10/19/24 17:59 12.5 mg BID.PC.BKFAST.SUPPER NILSON Administration Clopidogrel Bisulfate 75 mg 10/21/23 09:00 10/22/23 09:09 Clopidogrel Bisulfate 75 Mg Tablet PO 10/20/24 08:59 75 mg DAILY NILSON Administration Dextrose 0 gm 10/20/23 12:09 Dextrose 50% In Water 25 Gm/50 Ml Syringe IV-PUSH 10/19/24 12:08 PRN PRN Hypoglycemia Empagliflozin 10 mg 10/21/23 09:00 10/22/23 09:07 Empagliflozin 10 Mg Tablet PO 10/20/24 08:59 10 mg DAILY NILSON Administration Finasteride 5 mg 10/20/23 22:00 10/21/23 21:48 Finasteride 5 Mg Tablet PO 10/19/24 21:59 5 mg QHS NILSON Administration Fluoxetine HCl 10 mg 10/21/23 09:00 10/22/23 09:06 Fluoxetine 10 Mg Capsule PO 10/20/24 08:59 10 mg DAILY NILSON Administration Glucose 0 gm 10/20/23 12:09 Dextrose 40% Gel 15 Gm Tube PO 10/19/24 12:08 PRN PRN Hypoglycemia Heparin Sodium (Porcine) 3,200 unit 10/20/23 19:24 Heparin *Protocol Bolus* 5,000 Unit/Ml Vial IV-PUSH 10/19/24 19:23 PROTOCOL PRN PTT 40-53 Heparin Sodium (Porcine) 4,000 unit 10/20/23 19:24 10/21/23 03:23 Heparin *Protocol Bolus* 5,000 Unit/Ml Vial IV-PUSH 10/19/24 19:23 4,000 unit PROTOCOL PRN Administration PTT < 40 Hydralazine HCl 10 mg 10/20/23 11:10 Hydralazine 20 Mg/Ml Vial IV-PUSH 10/19/24 11:09 Q4H PRN Hypertension Magnesium Sulfate 2 gm in 50 mls @ 25 mls/hr 10/20/23 11:10 Magnesium Sulf 2gm-*Swfi* IV 10/19/24 11:09 DAILY PRN Magnesium Level < 1.5 Heparin Sodium/Sodium Chloride 25,000 unit in 250 mls @ 10 mls/hr 10/20/23 19:30 10/22/23 07:00 Heparin IV 10/19/24 19:29 0 units/hr .Q24H NILSON 0 mls/hr Titration Protocol 1,000 UNITS/HR Sodium Bicarbonate 100 meq/ 1,100 mls @ 75 mls/hr 10/21/23 17:30 10/21/23 18:44 Sodium Chloride IV 10/20/24 17:29 75 mls/hr .[id number] NILSON Administration Insulin Aspart 0 units 10/20/23 17:00 10/22/23 09:10 Insulin Aspart 300 Units/3 Ml Insuln.Pen SUBCUT 10/19/24 16:59 Not Given TID.WM.HS NILSON Protocol Insulin Aspart Prota 70%/Aspart 30% 26 units 10/20/23 16:30 10/22/23 09:11 Insulin Aspart Protamin/Aspart 300 Units/3 Ml Insuln.Pen SUBCUT 10/19/24 16:29 26 units BID.AC.BKFAST.SUPPER NILSON Administration Isosorbide Mononitrate 30 mg 10/21/23 09:00 10/22/23 09:06 Isosorbide Mononitrate 24hr Er 30 Mg Tab.Er.24h PO 10/20/24 08:59 30 mg DAILY NILSON Administration Labetalol HCl 5 mg 10/20/23 10:55 Labetalol 100 Mg/20 Ml Vial IV-PUSH 10/19/24 10:54 Q4H PRN Hypertension Levothyroxine Sodium 75 mcg 10/21/23 06:30 10/22/23 06:13 Levothyroxine 75 Mcg Tablet PO 10/20/24 06:29 75 mcg DAILY.0630 NILSON Administration Melatonin 5 mg 10/20/23 11:10 Melatonin 5 Mg Tablet PO 10/19/24 11:09 QHS PRN Insomnia Morphine Sulfate 4 mg 10/20/23 11:05 Morphine Sulfate 4 Mg/Ml Cartridge IV-PUSH Q4H PRN Pain Scale 8 - 10 Nitroglycerin 0.4 mg 10/20/23 10:48 Nitroglycerin 0.4 Mg Tab.Subl SUBLINGUAL 10/19/24 10:47 Q5M PRN Chest Pain Ondansetron HCl 4 mg 10/20/23 11:05 Ondansetron 4 Mg/2 Ml Vial IV-PUSH 10/19/24 11:04 Q8H PRN Nausea And Vomiting Pantoprazole Sodium 40 mg 10/21/23 07:30 10/22/23 09:08 Pantoprazole 40 Mg Tablet.Dr PO 10/20/24 07:29 40 mg DAILY.AC.BKFAST NILSON Administration Potassium Chloride 40 meq 10/20/23 11:10 Potassium Chloride Er 20 Meq Tab.Er.Prt PO 10/19/24 11:09 DAILY PRN Hypokalemia Sodium Zirconium Cyclosilicate 10 gm 10/21/23 14:00 10/22/23 09:04 Sodium Zirconium Cyclosilicate 10 Gm Powd.Pack PO 10/23/23 09:01 10 gm TID NILSON Administration Protocol Tamsulosin HCl 0.4 mg 10/21/23 09:00 10/22/23 09:06 Tamsulosin 0.4 Mg Cap.Er.24h PO 10/20/24 08:59 0.4 mg DAILY NILSON Administration A&P - Hospitalist Assessment/Plan (1) NSTEMI (non-ST elevated myocardial infarction): (2) CAD (coronary artery disease): (3) CKD (chronic kidney disease) stage 3, GFR 30-59 ml/min: Plan: LILIANA on CKD 4 (4) Diabetes: (5) Anemia in CKD (chronic kidney disease): (6) Hypertension: (7) Hypothyroid: (8) GERD (gastroesophageal reflux disease): Plan Non-STEMI Seen and examined Clinically stable Complain of shortness of breath No chest pain On nasal cannula oxygen saturation 94% Kidney function is worse today On IV fluids normal saline with bicarb per nephrology Started on heparin infusion Losartan still on hold Nephrology is following Cardiology is following Plan for cardiac cath when cleared by nephrology Hypertension: Hold valsartan and continue with no Hyperlipidemia: Continue with Diabetes type2: Insulin sliding scale/Jardiance Morbid obese: Lifestyle modification Documented By: Francia Kirby MD 10/22/23 1026 Signed By: <Electronically signed by Francia Kirby MD> 10/22/23 10[address] [facility] Work Phone: [phone]) 659-354505-28-2024 Progress note Author Scott Delgado [facility] October 21, 2023 5:00pm Note Date/Time October 21, 2023 4:54p m [facility] [address] [place] [address] Nephrology Progress Note Signed with Addenda Patient: Rachel Hollingsworth MR#: [id number] : 1935 Acct:[id number] Age/Sex: 88 / M Adm Date: 4 Loc: Room: [address] [place] [address] Type: ADM IN Attending Dr: Norman Figueroa DO Copies to: ~ ADDENDUM1 Since the patient never had CKD workup, will obtain bilateral kidney ultrasound with obstructive uropathy in addition to UA. Addendum Documented By: MD Scott Delgado 10/21/231699 Addendum Signed By: <Electronically signed by MD Scott Delgado> 10/21/23 170 Date of Service: 10/21/2023 Subjective Subjective Narrative: This is a 88-year-old male with medical history of CAD s/p CABG in 2003, CKD, DM, HTN, HLD and A-fib presented to [facility] with chest pain. He had a EKG showed diffuse ST depression. He was found to have anemia with hemoglobin 8 g/dL. He also found to have abnormal renal function with elevated serum creatinine 3 mg/dL and BUN 65 mg/dL. His chest x-ray showed cardiomegaly with interstitial infiltrate possibly due to CHF versus a multifocal pneumonia. White cell count was normal so no antibiotics were given. He was given blood transfusion and was transferred to the [facility] for further care. Patient reported to have a longstanding insulin-dependent type 2 diabetes mellitus and currently takes insulin. He denies any history of diabetic retinopathy. He reported that that he stopped following with his PCP and has not been seen close to a year. Upon review of his records, it appears the patient has a longstanding CKD and his serum creatinine was 2.1 mg in May 2023. He denies any evaluation by the contracts representative in the past. Nephrology is consulted for LILIANA on CKD. Interval history: Patient was started on heparin drip according to ACS protocol. He is being evaluated by cardiology and the patient will need cardiac cath once renal function stabilized. Serum creatinine did improve since yesterday however still2.4 mg/dL higher than baseline. Blood pressure soft 109/63. Valsartan is on hold. Patient is breathing comfortably on 1 L/min O2. Exam Physical Exam Vital Signs: Temp Pulse Resp BP Pulse Ox O2 Del Method O2 Flow Rate 36.7 C 81 20 109/63 96 Nasal Cannula 1 10/21/23 15:10/21/23 15:10/21/23 15:10/21/23 15:10/21/23 15:10/21/23 15:10/21/23 15:00 Narrative: Constitutional: Appears comfortable and not in distress HEENT: Mild pallor, no jaundice or cyanosis. Cardiovascular: RRR, normal S1-S2, no gallop or rub, No JVD Respiratory: Good bilateral air entry no wheezing or crackles Gastrointestinal: Soft, non tender, positive bowel sounds Extremities: Trace edema Skin: No rashes or bruises Musculoskeletal: No joints swellings or inflammation Neurology: Awake, alert, oriented ?3, No focal motor or sensory deficits Psych: Normal mood and affect Objective Intake and Output I&O: Intake & Output 10/18/23 10/19/23 10/20/23 10/21/23 23:59 23:59 23:59 23:59 Intake Total 680 / 680 250 / 250 Output Total 1150 / 1150 Balance 680 / 680 -900 / -900 Weight 97 kg 94.5 kg Meds and Allergies Meds: Active Medications Acetaminophen (Acetaminophen 325 Mg Tablet) 650 mg PO Q6HR PRN PRN Reason: Pain Scale 1 - 3 or fever Stop: 10/19/24 11:04 Amiodarone HCl (Amiodarone 200 Mg Tablet) 200 mg PO DAILY [facility] Stop: 10/20/24 08:59 Last Admin: 10/21/23 09:12 Dose: 200 mg Amlodipine Besylate (Amlodipine 5 Mg Tablet) 5 mg PO DAILY [facility] Stop: 10/20/24 08:59 Last Admin: 10/21/23 09:12 Dose: 5 mg Atorvastatin Calcium (Atorvastatin 80 Mg Tablet) 80 mg PO DAILY [facility] Stop: 10/20/24 08:59 Last Admin: 10/21/23 09:12 Dose: 80 mg Carvedilol (Carvedilol 12.5 Mg Tablet) 12.5 mg PO BID.PC.BKFAST.SUPPER [facility] Stop: 10/19/24 17:59 Last Admin: 10/21/23 09:12 Dose: 12.5 mg Clopidogrel Bisulfate (Clopidogrel Bisulfate 75 Mg Tablet) 75 mg PO DAILY [facility] Stop: 10/20/24 08:59 Last Admin: 10/21/23 09:12 Dose: 75 mg Dextrose (Dextrose 50% In Water 25 Gm/50 Ml Syringe) 0 gm IV-PUSH PRN PRN PRN Reason: Hypoglycemia Stop: 10/19/24 12:08 Empagliflozin (Empagliflozin 10 Mg Tablet) 10 mg PO DAILY [facility] Stop: 10/20/24 08:59 Last Admin: 10/21/23 09:13 Dose: 10 mg Finasteride (Finasteride 5 Mg Tablet) 5 mg PO QHS [facility] Stop: 10/19/24 21:59 Last Admin: 10/20/23 22:49 Dose: 5 mg Fluoxetine HCl (Fluoxetine 10 Mg Capsule) 10 mg PO DAILY [facility] Stop: 10/20/24 08:59 Last Admin: 10/21/23 09:12 Dose: 10 mg Glucose (Dextrose 40% Gel 15 Gm Tube) 0 gm PO PRN PRN PRN Reason: Hypoglycemia Stop: 10/19/24 12:08 Heparin Sodium (Porcine) (Heparin *Protocol Bolus* 5,000 Unit/Ml Vial) 3,200 unit IV-PUSH PROTOCOL PRN PRN Reason: PTT 40-53 Stop: 10/19/24 19:23 Heparin Sodium (Porcine) (Heparin *Protocol Bolus* 5,000 Unit/Ml Vial) 4,000 unit IV-PUSH PROTOCOL PRN PRN Reason: PTT < 40 Stop: 10/19/24 19:23 Last Admin: 10/21/23 03:23 Dose: 4,000 unit Hydralazine HCl (Hydralazine 20 Mg/Ml Vial) 10 mg IV-PUSH Q4H PRN PRN Reason: Hypertension Stop: 10/19/24 11:09 Magnesium Sulfate (Magnesium Sulf 2gm-*Swfi*) 2 gm in 50 mls @ 25 mls/hr IV DAILY PRN PRN Reason: Magnesium Level < 1.5 Stop: 10/19/24 11:09 Heparin Sodium/Sodium Chloride (Heparin) 25,000 unit in 250 mls @ 10 mls/hr IV .Q24H [facility]; Protocol Stop: 10/19/24 19:29 Last Admin: 10/21/23 15:00 Dose: 1,300 units/hr, 13 mls/hr Insulin Aspart (Insulin Aspart 300 Units/3 Ml Insuln.Pen) 0 units SUBCUT TID.WM.HS [facility]; Protocol Stop: 10/19/24 16:59 Last Admin: 10/21/23 12:04 Dose: Not Given Insulin Aspart Prota 70%/Aspart 30% (Insulin Aspart Protamin/Aspart 300 Units/3 Ml Insuln.Pen) 26 units SUBCUT BID.AC.BKFAST.SUPPER [facility] Stop: 10/19/24 16:29 Last Admin: 10/21/23 09:00 Dose: Not Given Isosorbide Mononitrate (Isosorbide Mononitrate 24hr Er 30 Mg Tab.Er.24h) 30 mg PO DAILY [facility] Stop: 10/20/24 08:59 Last Admin: 10/21/23 09:11 Dose: 30 mg Labetalol HCl (Labetalol 100 Mg/20 Ml Vial) 5 mg IV-PUSH Q4H PRN PRN Reason: Hypertension Stop: 10/19/24 10:54 Levothyroxine Sodium (Levothyroxine 75 Mcg Tablet) 75 mcg PO DAILY.629 [facility] Stop: 10/20/24 06:29 Last Admin: 10/21/23 06:34 Dose: 75 mcg Melatonin (Melatonin 5 Mg Tablet) 5 mg PO QHS PRN PRN Reason: Insomnia Stop: 10/19/24 11:09 Morphine Sulfate (Morphine Sulfate 4 Mg/Ml Cartridge) 4 mg IV-PUSH Q4H PRN PRN Reason: Pain Scale 8 - 10 Nitroglycerin (Nitroglycerin 0.4 Mg Tab.Subl) 0.4 mg SUBLINGUAL Q5M PRN PRN Reason: Chest Pain Stop: 10/19/24 10:47 Ondansetron HCl (Ondansetron 4 Mg/2 Ml Vial) 4 mg IV-PUSH Q8H PRN PRN Reason: Nausea And Vomiting Stop: 10/19/24 11:04 Pantoprazole Sodium (Pantoprazole 40 Mg Tablet.Dr) 40 mg PO DAILY.AC.BKFAST [facility] Stop: 10/20/24 07:29 Last Admin: 10/21/23 09:11 Dose: 40 mg Potassium Chloride (Potassium Chloride Er 20 Meq Tab.Er.Prt) 40 meq PO DAILY PRN PRN Reason: Hypokalemia Stop: 10/19/24 11:09 Sodium Zirconium Cyclosilicate (Sodium Zirconium Cyclosilicate 10 Gm Powd.Pack) 10 gm PO TID [facility]; Protocol Stop: 10/23/23 09:01 Last Admin: 10/21/23 15:00 Dose: 10 gm Tamsulosin HCl (Tamsulosin 0.4 Mg Cap.Er.24h) 0.4 mg PO DAILY [facility] Stop: 10/20/24 08:59 Last Admin: 10/21/23 09:12 Dose: 0.4 mg Allergies codeine Allergy (Unknown, Verified 10/21/23 12:01) Nightmare, bad dreams acetaminophen [From Tylenol] Adverse Reaction (Verified 10/21/23 12:01) Nightmare Results - Nephrology Labs 10/21/23 02:10 10/21/23 02:10 Labs: 10/21/23 02:10 BUN 52 H Creatinine 2.48 H Phosphorus 3.7 Albumin 3.5 Radiology Impressions Impressions - last 24 hours: Any impression(s) listed above is documentation that was entered by the reading physician into a diagnostic report(s) for Rachel Hollingsworth SR. I have reviewed the report(s) and am incorporating any findings in the treatment plan of this patient where applicable. A&P - Nephrology Assessment/Plan (1) Acute kidney injury superimposed on CKD: Assessment/Problem Details: He has LILIANA on CKD possibly due to the symptomatic anemia or cardiorenal in the setting of ACS. Patient never had workup for CKD however its most likely diabetic nephropathy. (2) CKD (chronic kidney disease) stage 4, GFR 15-29 ml/min: Assessment/Problem Details: He has a CKD due to the longstanding DM and HTN baseline serum creatinine is around 2.1 mg/dL. (3) Anemia: Assessment/Problem Details: He has anemia and was transfused 1 unit of PRBC. Hemoglobin went up appropriately. (4) Type 2 diabetes mellitus with diabetic chronic kidney disease: Assessment/Problem Details: He has insulin-dependent type 2 diabetes mellitus was taking NovoLog at home. (5) Hypertensive chronic kidney disease with stage 1 through stage 4 chronic kidney disease, or unspecified chronic kidney disease: Assessment/Problem Details: Blood pressure is controlled. Valsartan was stopped on admission because of elevated creatinine. Plan * Patient's chest pain-free however he is anticipating cardiac cath by the end of the week per cardiology. Considering the soft blood pressure, hyperkalemia and mild acidosis, I will start gentle hydration with half-normal saline with 2 amp of sodium bicarb and at rate of 75 cc/h with close monitoring of respiratory status and renal function. * Valsartan is on hold. He still amlodipine 5 mg daily, will monitor blood pressure after IV hydration and will stop amlodipine if systolic blood pressure still below 130s to maximize cardiac and renal perfusion. * Continue insulin adjust the dose as needed to keep the blood sugar between 100 150 mg/dL. * Check daily intake, output, renal panel and CBC and plan for cardiac cath when renal function stabilizes possibly in 2 to 3 days. Risks of contrast nephropathy and possible need for dialysis after contrast exposure has been discussed with the patient. Patient has moderate to severe risk of contrast nephropathy however he was advised to proceed with cardiac cathconsidering history of CABG and elevated troponin. Will slowly hydrate the patient to minimize the risk of contrast exposure. Documented By: Scott Delgado MD 10/21/23 1640 Signed By: <Electronically signed by MD Scott Delgado> 10/21/23 [id number] [facility] Work Phone: 1([phone] 504-690905-28-2024 Progress note Author Norman Figueroa [facility] October 21, 2023 2:09pm Note Date/Time October 21, 2023 12:36 pm [facility] [address] [place] [address] Hospitalist Progress Note Signed Patient: Rachel Hollingsworth SR MR#: [id number] : 1935 Acct:[id number] Age/Sex: 88 / M Adm Date: 4 Loc: 4P Room: [address] [place] [address] Type: ADM IN Attending Dr: Norman Figueroa DO Copies to: ~ Date of Service: 10/21/2023 Subjective Subjective Narrative: no new symptoms. Feels well this morning. He is awaiting his left heart cath but cardiology is monitoring his renal function. Exam Physical Exam Vital Signs: Temp Pulse Resp BP Pulse Ox O2 Del Method O2 Flow Rate 98.2 F 75 20 100/58 L 95 Nasal Cannula 2 10/21/23 11:53 10/21/23 11:53 10/21/23 11:53 10/21/23 11:53 10/21/23 11:53 10/21/23 11:53 10/21/23 11:53 Narrative: generally- NAD HEENT- head atraumatic normocephalic Heart regular rate Lungs clear to auscultation bilaterally Abdomen soft nontender, bowel sound present Neurologically alert and oriented, nonfocal Skin no rash Objective Lab Results 10/21/23 02:10 10/21/23 02:10 Meds Allergies and Active Meds Allergies codeine Allergy (Unknown, Verified 10/21/23 12:01) Nightmare, bad dreams acetaminophen [From Tylenol] Adverse Reaction (Verified 10/21/23 12:01) Nightmare Active Meds: Active Medications Generic Name Dose Route Start Last Admin Trade Name Carlo PRN Reason Stop Dose Admin Acetaminophen 650 mg 10/20/23 11:05 Acetaminophen 325 Mg Tablet PO 10/19/24 11:04 Q6HR PRN Pain Scale 1 - 3 or fever Amiodarone HCl 200 mg 10/21/23 09:00 10/21/23 09:12 Amiodarone 200 Mg Tablet PO 10/20/24 08:59 200 mg DAILY NILSON Administration Amlodipine Besylate 5 mg 10/21/23 09:00 10/21/23 09:12 Amlodipine 5 Mg Tablet PO 10/20/24 08:59 5 mg DAILY NILSON Administration Atorvastatin Calcium 80 mg 10/21/23 09:00 10/21/23 09:12 Atorvastatin 80 Mg Tablet PO 10/20/24 08:59 80 mg DAILY NILSON Administration Carvedilol 12.5 mg 10/20/23 18:00 10/21/23 09:12 Carvedilol 12.5 Mg Tablet PO 10/19/24 17:59 12.5 mg BID.PC.BKFAST.SUPPER NILSON Administration Clopidogrel Bisulfate 75 mg 10/21/23 09:00 10/21/23 09:12 Clopidogrel Bisulfate 75 Mg Tablet PO 10/20/24 08:59 75 mg DAILY NILSON Administration Dextrose 0 gm 10/20/23 12:09 Dextrose 50% In Water 25 Gm/50 Ml Syringe IV-PUSH 10/19/24 12:08 PRN PRN Hypoglycemia Empagliflozin 10 mg 10/21/23 09:00 10/21/23 09:13 Empagliflozin 10 Mg Tablet PO 10/20/24 08:59 10 mg DAILY NILSON Administration Finasteride 5 mg 10/20/23 22:00 10/20/23 22:49 Finasteride 5 Mg Tablet PO 10/19/24 21:59 5 mg QHS NILSON Administration Fluoxetine HCl 10 mg 10/21/23 09:00 10/21/23 09:12 Fluoxetine 10 Mg Capsule PO 10/20/24 08:59 10 mg DAILY NILSON Administration Glucose 0 gm 10/20/23 12:09 Dextrose 40% Gel 15 Gm Tube PO 10/19/24 12:08 PRN PRN Hypoglycemia Heparin Sodium (Porcine) 3,200 unit 10/20/23 19:24 Heparin *Protocol Bolus* 5,000 Unit/Ml Vial IV-PUSH 10/19/24 19:23 PROTOCOL PRN PTT 40-53 Heparin Sodium (Porcine) 4,000 unit 10/20/23 19:24 10/21/23 03:23 Heparin *Protocol Bolus* 5,000 Unit/Ml Vial IV-PUSH 10/19/24 19:23 4,000 unit PROTOCOL PRN Administration PTT < 40 Hydralazine HCl 10 mg 10/20/23 11:10 Hydralazine 20 Mg/Ml Vial IV-PUSH 10/19/24 11:09 Q4H PRN Hypertension Magnesium Sulfate 2 gm in 50 mls @ 25 mls/hr 10/20/23 11:10 Magnesium Sulf 2gm-*Swfi* IV 10/19/24 11:09 DAILY PRN Magnesium Level < 1.5 Heparin Sodium/Sodium Chloride 25,000 unit in 250 mls @ 10 mls/hr 10/20/23 19:30 10/21/23 03:23 Heparin IV 10/19/24 19:29 1,300 units/hr .Q24H NILSON 13 mls/hr Titration Protocol 1,000 UNITS/HR Insulin Aspart 0 units 10/20/23 17:00 10/21/23 12:04 Insulin Aspart 300 Units/3 Ml Insuln.Pen SUBCUT 10/19/24 16:59 Not Given TID.WM.HS NILSON Protocol Insulin Aspart Prota 70%/Aspart 30% 26 units 10/20/23 16:30 10/21/23 09:00 Insulin Aspart Protamin/Aspart 300 Units/3 Ml Insuln.Pen SUBCUT 10/19/24 16:29 Not Given BID.AC.BKFAST.SUPPER NILSON Isosorbide Mononitrate 30 mg 10/21/23 09:00 10/21/23 09:11 Isosorbide Mononitrate 24hr Er 30 Mg Tab.Er.24h PO 10/20/24 08:59 30 mg DAILY NILSON Administration Labetalol HCl 5 mg 10/20/23 10:55 Labetalol 100 Mg/20 Ml Vial IV-PUSH 10/19/24 10:54 Q4H PRN Hypertension Levothyroxine Sodium 75 mcg 10/21/23 06:30 10/21/23 06:34 Levothyroxine 75 Mcg Tablet PO 10/20/24 06:29 75 mcg DAILY.0630 NILSON Administration Melatonin 5 mg 10/20/23 11:10 Melatonin 5 Mg Tablet PO 10/19/24 11:09 QHS PRN Insomnia Morphine Sulfate 4 mg 10/20/23 11:05 Morphine Sulfate 4 Mg/Ml Cartridge IV-PUSH Q4H PRN Pain Scale 8 - 10 Nitroglycerin 0.4 mg 10/20/23 10:48 Nitroglycerin 0.4 Mg Tab.Subl SUBLINGUAL 10/19/24 10:47 Q5M PRN Chest Pain Ondansetron HCl 4 mg 10/20/23 11:05 Ondansetron 4 Mg/2 Ml Vial IV-PUSH 10/19/24 11:04 Q8H PRN Nausea And Vomiting Pantoprazole Sodium 40 mg 10/21/23 07:30 10/21/23 09:11 Pantoprazole 40 Mg Tablet.Dr [place]ITCHCOCK 10/20/24 07:29 40 mg DAILY.AC.BKFAST NILSON Administration Potassium Chloride 40 meq 10/20/23 11:10 Potassium Chloride Er 20 Meq Tab.Er.Prt PO 10/19/24 11:09 DAILY PRN Hypokalemia Sodium Zirconium Cyclosilicate 10 gm 10/21/23 14:00 Sodium Zirconium Cyclosilicate 10 Gm Powd.Pack PO 10/23/23 09:01 TID NILSON Protocol Tamsulosin HCl 0.4 mg 10/21/23 09:00 10/21/23 09:12 Tamsulosin 0.4 Mg Cap.Er.24h PO 10/20/24 08:59 0.4 mg DAILY NILSON Administration A&P - Hospitalist Assessment/Plan (1) NSTEMI (non-ST elevated myocardial infarction): (2) CAD (coronary artery disease): (3) CKD (chronic kidney disease) stage 3, GFR 30-59 ml/min: Plan: LILIANA on CKD 4 (4) Diabetes: (5) Anemia in CKD (chronic kidney disease): (6) Hypertension: (7) Hypothyroid: (8) GERD (gastroesophageal reflux disease): Plan Monitor renal function, hold nephrotoxic meds. Stoker Installer is following. Cardiology will perform left heart cath once renal function allows. Cardiac meds and goal-directed medical therapy as per office equipment mechanic. Patient is on heparin infusion. Trend cardiac enzymes Eliquis is on hold, monitor H&H. Patient received transfusion on admission withappropriate incrementation of his hemoglobin Sliding-scale insulin, hypoglycemia protocol Follow-up echocardiogram result Monitor for worsening symptoms Patient is full code Discussed with patient Appreciate cardiology and nephrology input and help DVT prophylaxis-patient is on heparin Documented By: Norman Figueroa DO 10/21/23 1235 Signed By: <Electronically signed by Norman Figueroa DO> 10/21/23 [address] [facility] Work Phone: 1(450) 800-593005-28-2024 Progress note Author Vj Hess [facility] October 21, 2023 11:42am Note Date/Time October 21, 2023 11:39 am [facility] [address] [place] [address] Cardiology Progress Note Signed Patient: Rachel Hollingsworth MR#: [id number] : 1935 Acct:[id number] Age/Sex: 88 / M Adm Date: 4 Loc: 4P Room: [address] [place] [address] Type: ADM IN Attending Dr: Norman Figueroa DO Copies to: ~ Date of Service: 10/21/2023 Subjective Principal diagnosis: Chest pain/angina Interval history: Mr. Hollingsworth is a 88 year old male with PMH significant for CAD s/p CABG in [address] Lyons, Paroxysmal Atrial fib on Eliquis, HLD, HTN, hypothyroidism, CKD, DM II who presented to [facility] ER with intermittent chest pain for the past week. He reported relief with ASA but symptoms worsened last night and EMS was called. On arrival to [facility], initial troponin was 200; EKG showed sinus rhythm with first-degree AV block and right bundle branch block with diffuse ST depressions and ALO in aVR. CXR showed pulmonary congestion. Hbwas 8 and he received 1U PRBC. Denied melena/hematemesis/hematochezia but reported dark stools due to iron pills. Creatinine was elevated at 3 with BUN of65. Repeat labs today shows hemoglobin of 9.7, creatinine of 2.7. Troponin 44074-->15829 He is currently chest pain free. Interval evaluation 10/21/2023: Patient is doing well, pain-free, troponins trending down, with evidence of significant anemia improved after 1 unit blood and persistent elevated creatinine 2.48. Risks, benefits and alternatives been performed with the patient for 30 minutes this morning, he will need invasive assessment later this week once creatinine is at its nataliya with a limited contrast. As long as she is on heparin and remains pain-free with declining troponins, will obtain echocardiogram, continue with nephrology/hydration, proceed with left heart cath probably or Friday. Exam Physical Exam Vital Signs: Temp Pulse Resp BP Pulse Ox O2 Del Method O2 Flow Rate 98.1 F 86 20 122/58 L 97 Nasal Cannula 2 10/21/23 09:08 10/21/23 09:08 10/21/23 09:08 10/21/23 09:08 10/21/23 09:08 10/21/23 09:08 10/21/23 09:08 Const General: cooperative, comfortable and no acute distress Nutritional Appearance: overweight Orientation: alert, awake and oriented x3 HEENT Head: normal to inspection Eyes General: appearance normal, both eyes and all related structures Neck Neck: normal visual inspection Chest Chest palpation & inspection: normal inspection of the chest Resp Effort & Inspection: normal respiratory effort Auscultation: clear to auscultation bilaterally Cardio Palpation: normal PMI Rate: regular rate Rhythm: regular rhythm Heart Sounds: S1 normal and S2 normal GI Inspection: obesity Palpation: soft Skin General: no rashes or lesions noted Neuro General: patient alert, patient awake and patient oriented x3 Objective Labs 10/21/23 02:10 10/21/23 02:10 Labs: Laboratory Results - last 24 hr 10/20/23 10/20/23 10/20/23 12:47 16:39 17:10 Corrected WBC 8.7 Uncorrected WBC Count 8.7 RBC 3.17 L Hgb 9.7 L Hct 28.8 L MCV 90.7 MCH 30.6 MCHC 33.7 RDW 16.1 H Plt Count 159 MPV 9.1 Neut % (Auto) 54.8 Lymph % (Auto) 27.3 [place] % (Auto) 9.2 Eos % (Auto) 7.4 Baso % (Auto) 1.3 Nucleat RBC Rel Count 0.0 Neut # (Auto) 4.8 Lymph # (Auto) 2.4 [place] # (Auto) 0.8 Eos # (Auto) 0.6 H Baso # (Auto) 0.1 PT INR APTT PHA Creatinine Clear 22.40 Sodium 141 Potassium 5.0 Chloride 107 Carbon Dioxide 22.1 Anion Gap 16.9 H BUN 56 H Creatinine 2.72 H Est GFR (CKD-EPI) 22.060 Glucose 151 H POC Glucose 223 POC Glucose Comment Calcium 8.5 L Phosphorus Magnesium 2.1 Total Bilirubin 0.4 AST 28 ALT 10 Alkaline Phosphatase 60 Total Creatine Kinase 300 H 329 H Troponin I High Sens 35285.6 H* 06282.2 H* B-Natriuretic Peptide 760.0 H Total Protein 6.1 L Albumin 3.7 Globulin 2.4 Albumin/Globulin Ratio 1.5 Free T4 0.81 Free T3 2.45 L TSH 3rd Generation 10.45 H 10/20/23 10/20/23 10/21/23 19:37 20:35 02:10 Corrected WBC 8.8 8.6 Uncorrected WBC Count 8.8 8.6 RBC 3.36 L 3.00 L Hgb 10.3 L 9.3 L Hct 30.4 L 27.1 L MCV 90.5 90.4 MCH 30.6 31.0 MCHC 33.8 34.3 RDW 16.0 H 15.9 H Plt Count 181 178 MPV 9.3 8.9 Neut % (Auto) 70.6 79.6 Lymph % (Auto) 15.[address] % (Auto) 5.9 7.9 Eos % (Auto) 6.7 3.7 Baso % (Auto) 1.7 0.5 Nucleat RBC Rel Count 0.1 0.0 Neut # (Auto) 6.3 6.8 Lymph # (Auto) 1.[address] # (Auto) 0.5 0.7 Eos # (Auto) 0.6 H 0.3 Baso # (Auto) 0.1 0.0 PT 13.1 H 13.4 H INR 1.1 1.2 APTT 32.4 33.0 PHA Creatinine Clear 24.26 Sodium 138 Potassium 5.2 H Chloride 107 Carbon Dioxide 22.1 Anion Gap 14.1 BUN 52 H Creatinine 2.48 H Est GFR (CKD-EPI) 24.646 Glucose 92 POC Glucose 181 POC Glucose Comment Calcium 8.5 L Phosphorus 3.7 Magnesium Total Bilirubin AST ALT Alkaline Phosphatase Total Creatine Kinase 247 H Troponin I High Sens 47360.7 H* B-Natriuretic Peptide Total Protein Albumin 3.5 Globulin Albumin/Globulin Ratio Free T4 Free T3 TSH 3rd Generation 10/21/23 10/21/23 07:37 10:25 Corrected WBC Uncorrected WBC Count RBC Hgb Hct MCV MCH MCHC RDW Plt Count MPV Neut % (Auto) Lymph % (Auto) [place] % (Auto) Eos % (Auto) Baso % (Auto) Nucleat RBC Rel Count Neut # (Auto) Lymph # (Auto) [place] # (Auto) Eos # (Auto) Baso # (Auto) PT INR APTT 69.4 H PHA Creatinine Clear Sodium Potassium Chloride Carbon Dioxide Anion Gap BUN Creatinine Est GFR (CKD-EPI) Glucose POC Glucose 108 POC Glucose Comment Glu2: cleaned meter Calcium Phosphorus Magnesium Total Bilirubin AST ALT Alkaline Phosphatase Total Creatine Kinase Troponin I High Sens B-Natriuretic Peptide Total Protein Albumin Globulin Albumin/Globulin Ratio Free T4 Free T3 TSH 3rd Generation A&P - Cardiology (1) Hypertensive chronic kidney disease with stage 1 through stage 4 chronic kidney disease, or unspecified chronic kidney disease: Code(s): I12.9 - Hypertensive chronic kidney disease with stage 1 through stage 4 chronickidney disease, or unspecified chronic kidney disease (2) CKD (chronic kidney disease) stage 4, GFR 15-29 ml/min: Code(s): N18.4 - Chronic kidney disease, stage 4 (severe) (3) Type 2 diabetes mellitus with diabetic chronic kidney disease: Code(s): E11.22 - Type 2 diabetes mellitus with diabetic chronic kidney disease (4) NSTEMI (non-ST elevated myocardial infarction): Code(s): I21.4 - Non-ST elevation (NSTEMI) myocardial infarction (5) Paroxysmal atrial fibrillation: Code(s): I48.0 - Paroxysmal atrial fibrillation (6) Hypothyroid: Code(s): E03.9 - Hypothyroidism, unspecified (7) Anemia in CKD (chronic kidney disease): Code(s): N18.9 - Chronic kidney disease, unspecified; D63.1 - Anemia in chronic kidney disease (8) Hyperlipidemia: Code(s): E78.5 - Hyperlipidemia, unspecified (9) CAD (coronary artery disease): Code(s): I25.10 - Atherosclerotic heart disease of [place] coronary artery without angina pectoris (10) GERD (gastroesophageal reflux disease): Code(s): K21.9 - Gastro-esophageal reflux disease without esophagitis Plan Mr. Hollingsworth is a 88 year old male with PMH significant for CAD s/p CABG in [address] Lyons, Paroxysmal Atrial fib on Eliquis, HLD, HTN, hypothyroidism, CKD, DM II who presented to [facility] ER with intermittent chest pain for the past week and was found to have NSTEMI. Troponin 200-->66772-->97068 EKG showed sinus rhythm with first-degree AV block and right bundle branch blockwith diffuse ST depressions and ALO in aVR. Assessment: NSTEMI LILIANA on CKD Paroxysmal Afib Anemia of CKD s/p 1U [facility] at [facility] Paroxysmal Atrial Fibrillation on Eliquis CAD s/p CABG in 2003 HTN HLD Recommendations: Left heart catheterization later this week; trend serum creatinine and enzymes Documented By: Vj Hess DO 10/21/23 1138 Signed By: <Electronically signed by Vj Hess, DO> 10/21/23 [address] [facility] Work Phone: [phone] Consult note Author Kayleigh Stoner [facility] October 20, 2023 7:34pm Note Date/Time October 20, 2023 7:25p m [facility] [address] [place] [address] Cardiology Consult Note Signed Patient: Rachel Hollingsworth SR MR#: [id number] : 1935 Acct:[id number] Age/Sex: 88 / M Adm Date: 4 Loc: 4P Room: [address] [place] [address] Type: ADM IN Attending Dr: Milton Londono MD Copies to: MD Kayleigh Mora MD NO FAMILY PHYSICIAN~ Cardiology HPI History of Present Illness Consult Date: 10/20/23 Reason for Consult: NSTEMI HPI: Mr. Hollingsworth is a 88 year old male with PMH significant for CAD s/p CABG in [address] Lyons, Paroxysmal Atrial fib on Eliquis, HLD, HTN, hypothyroidism, CKD, DM II who presented to [facility] ER with intermittent chest pain for the past week. He reported relief with ASA but symptoms worsened last night and EMS was called. On arrival to [facility], initial troponin was 200; EKG showed sinus rhythm with first-degree AV block and right bundle branch block with diffuse ST depressions and ALO in aVR. CXR showed pulmonary congestion. Hbwas 8 and he received 1U PRBC. Denied melena/hematemesis/hematochezia but reported dark stools due to iron pills. Creatinine was elevated at 3 with BUN of65. Repeat labs today shows hemoglobin of 9.7, creatinine of 2.7. Troponin 05863-->14199 He is currently chest pain free. Review of Systems Review of Systems All other systems reviewed & are negative unless noted below or in HPI [facility] Medical History (Updated 10/20/23 @ 13:06 by Ly Sanderson MD) PVD (peripheral vascular disease) CHF (congestive heart failure) GERD (gastroesophageal reflux disease) Chronic anticoagulation Paroxysmal atrial fibrillation Vitamin D deficiency Hypothyroid Anemia in CKD (chronic kidney disease) CKD (chronic kidney disease) stage 3, GFR 30-59 ml/min BPH (benign prostatic hyperplasia) Depression Hyperlipidemia CAD (coronary artery disease) GERD (gastroesophageal reflux disease) Elbow fracture, right with surgery History of intestine removal Carotid artery disease with surgery HTN (hypertension) Diabetes Stroke DECEMBER 2019 Surgical History H/O carotid endarterectomy History of left hip replacement History of shoulder surgery left History of heart bypass surgery x4 Family History Father Family/Other Legacy FamHx Problem: 2 children , 1 sister , 3 brothers Mother Hypertension Diabetes Heart disease Cancer Legacy FamHx Problem: Diagnosed with Cancer Social History Smoking Status: Former smoker Tobacco Type: cigarettes Substance Use Type: None Social History Comments: lives with grandchild and great-grandchildren Meds Medications and Allergies Allergies codeine Allergy (Unknown, Unverified 11/30/21 10:24) Nightmare, bad dreams acetaminophen [From Tylenol] Adverse Reaction (Verified 11/30/21 10:24) Nightmare Home Medications atorvastatin 80 mg tablet 80 mg PO DAILY 06/09/20 [History Confirmed 11/30/21] clopidogrel 75 mg tablet 75 mg PO DAILY 06/09/20 [History Confirmed 10/20/23] acetaminophen 500 mg tablet 1,000 mg PO QHS 01/25/21 [History Confirmed 11/30/21] apixaban 2.5 mg tablet (Eliquis) 2.5 mg PO BID 01/25/21 [History Confirmed 10/20/23] canagliflozin 100 mg tablet (Invokana) 100 mg PO DAILY 01/25/21 [History Confirmed 11/30/21] cholecalciferol (vitamin D3) 125 mcg (5,000 unit) tablet (Vitamin D3) 125 mcg PODAILY 01/25/21 [History Confirmed 11/30/21] fluoxetine 10 mg capsule 10 mg PO DAILY 01/25/21 [History Confirmed 10/20/23] nitroglycerin 0.4 mg sublingual tablet 0.4 mg sublingual Q5-15M PRN Chest Pain 01/25/21 [History Confirmed 10/20/23] valsartan 80 mg tablet 80 mg PO DAILY 01/25/21 [History Confirmed 10/20/23] amiodarone 200 mg tablet 200 mg PO DAILY 12/01/21 [History Confirmed 10/20/23] amlodipine 5 mg tablet 5 mg PO DAILY 12/01/21 [History Confirmed 12/01/21] finasteride 5 mg tablet 5 mg PO QHS 12/01/21 [History Confirmed 12/01/21] isosorbide mononitrate 30 mg tablet,extended release 24 hr 30 mg PO DAILY 12/01/21 [History Confirmed 12/01/21] tamsulosin 0.4 mg capsule 0.4 mg PO DAILY 12/01/21 [History Confirmed 10/20/23] carvedilol 25 mg tablet 12.5 mg (1/2 x 25 mg) PO BID.PC.BKFAST.SUPPER #30 tabs 12/06/21 [Rx Confirmed 11/30/21] insulin aspar prot-insulin aspart 100 unit/mL (70-30) subcutaneous pen (Novolog Mix 70-30FlexPen U-100) 26 unit (0.26 mL) subcut BID.AC.BKFAST.SUPPER #0 mL 12/06/21 [Rx] insulin aspart U-100 100 unit/mL (3 mL) subcutaneous pen (Novolog FlexPen U-100 Insulin aspart) 0 units subcut ACHS #0 mL 12/06/21 [Rx] levothyroxine 75 mcg tablet 75 mcg PO DAILY.0630 #30 tabs 12/06/21 [Rx Confirmed 10/20/23] pantoprazole 40 mg tablet,delayed release 40 mg PO DAILY.AC.BKFAST #30 tabs 12/06/21 [Rx Confirmed 10/20/23] Exam Physical Exam Vital Signs: Temp Pulse Resp BP Pulse Ox O2 Del Method O2 Flow Rate 97.5 F L 75 14 151/79 H 96 Nasal Cannula 2 10/20/23 16:00 10/20/23 16:00 10/20/23 16:00 10/20/23 16:00 10/20/23 16:00 10/20/23 16:00 10/20/23 16:00 Narrative: GEN: AAOx3. No acute distress. Neck: No JVD. Lungs: Clear to auscultation bilaterally Heart: Regular rate and rhythm. Normal S1 and S2. No murmurs or rubs appreciated. Abdomen: Soft, nontender, nondistended, bowel sounds present. Extremities: No BLE edema. Neuro: AAOx3. No focal deficits. Results - Cardiology Labs 10/20/23 12:47 10/20/23 12:47 Lab results: Cardiac Enzymes 10/20/23 10/20/23 Range/Units 12:47 17:10 AST 28 (13-39) U/L Total Creatine Kinase 300 H 329 H (30-223) U/L B-Natriuretic Peptide 760.0 H (5-100) pg/mL CBC 10/20/23 Range/Units 12:47 RBC 3.17 L (3.90-5.60) X10E6/uL Hgb 9.7 L (13.0-17.0) g/dL Hct 28.8 L (38.8-50.0) % Plt Count 159 (150-450) x10E3/uL Neut # (Auto) 4.8 (1.8-7.7) x10E3/uL Lymph # (Auto) 2.4 (1.00-4.8) x10E3/uL [place] # (Auto) 0.8 (0.0-0.8) x10E3/uL Eos # (Auto) 0.6 H (0.0-0.45) x10E3/uL Baso # (Auto) 0.1 (0.0-0.2) x10E3/uL Comprehensive Metabolic Panel 10/20/23 Range/Units 12:47 Sodium 141 (136-145) mmol/L Potassium 5.0 (3.5-5.1) mmol/L Chloride 107 (98-107) mmol/L Carbon Dioxide 22.1 (21.0-31.0) mmol/L BUN 56 H (7-25) mg/dL Creatinine 2.72 H (0.70-1.30) mg/dL Glucose 151 H (70-100) mg/dL Calcium 8.5 L (8.6-10.3) mg/dL AST 28 (13-39) U/L ALT 10 (7-52) U/L Alkaline Phosphatase 60 (34-104) U/L Total Protein 6.1 L (6.4-8.9) gm/dL Albumin 3.7 (3.5-5.7) gm/dL Intake and Output 10/20/23 10/20/23 10/20/23 07:59 15:59 23:59 Intake Total 680 / 680 Balance 680 / 680 Intake: Oral 680 / 680 Other: # Unmeasured Voids 3 # Bowel Movements 1 Weight 97 kg Patient Weight 10/20/23 23:59 Weight 97 kg A&P - Cardiology (1) Hypertensive chronic kidney disease with stage 1 through stage 4 chronic kidney disease, or unspecified chronic kidney disease: Code(s): I12.9 - Hypertensive chronic kidney disease with stage 1 through stage 4 chronickidney disease, or unspecified chronic kidney disease (2) CKD (chronic kidney disease) stage 4, GFR 15-29 ml/min: Code(s): N18.4 - Chronic kidney disease, stage 4 (severe) (3) Type 2 diabetes mellitus with diabetic chronic kidney disease: Code(s): E11.22 - Type 2 diabetes mellitus with diabetic chronic kidney disease (4) NSTEMI (non-ST elevated myocardial infarction): Code(s): I21.4 - Non-ST elevation (NSTEMI) myocardial infarction (5) Paroxysmal atrial fibrillation: Code(s): I48.0 - Paroxysmal atrial fibrillation (6) Hypothyroid: Code(s): E03.9 - Hypothyroidism, unspecified (7) Anemia in CKD (chronic kidney disease): Code(s): N18.9 - Chronic kidney disease, unspecified; D63.1 - Anemia in chronic kidney disease (8) Hyperlipidemia: Code(s): E78.5 - Hyperlipidemia, unspecified (9) CAD (coronary artery disease): Code(s): I25.10 - Atherosclerotic heart disease of [place] coronary artery without angina pectoris (10) GERD (gastroesophageal reflux disease): Code(s): K21.9 - Gastro-esophageal reflux disease without esophagitis Plan Mr. Hollingsworth is a 88 year old male with PMH significant for CAD s/p CABG in [address] Lyons, Paroxysmal Atrial fib on Eliquis, HLD, HTN, hypothyroidism, CKD, DM II who presented to [facility] ER with intermittent chest pain for the past week and was found to have NSTEMI. Troponin 200-->85045-->66117 EKG showed sinus rhythm with first-degree AV block and right bundle branch blockwith diffuse ST depressions and ALO in aVR. Assessment: NSTEMI LILIANA on CKD Paroxysmal Afib Anemia of CKD s/p 1U [facility] Paroxysmal Atrial Fibrillation on Eliquis CAD s/p CABG in 2003 HTN HLD Recommendations: - Currently chest pain free. No signs or symptoms of bleeding. Hb is stable. Given significantly elevated troponin, will start heparin gtt ACS protocol with no bolus. Monitor H&H and signs of bleeding. Pt's last dose of Eliquis was evening of 10/18. - Will keep NPO and tentatively plan for LHC in am if renal function and Hb stable - Nephrology consulted for LILIANA on CKD. Holding home Valsartan. - ECHO to evaluate LV function and wall motion - Continue Amiodarone, Plavix, Coreg 12.5mg BID, Lipitor 80mg, Imdur 30mg daily and PRN NTG. Documented By: Kayleigh Stoner MD 10/20/231912 Signed By: <Electronically signed by Kayleigh Stoner MD> 10/20/231933 [facility] Work Phone: [phone] Consult note Author Ly Sanderson [facility] October 20, 2023 1:15pm Note Date/Time October 20, 2023 1:02p [facility] ENTER [address] [place] [address] Nephrology Consult Note Signed Patient: Rachel Hollingsworth SR MR#: [id number] : 1935 Acct:[id number] Age/Sex: 88 / M Adm Date: 4 Loc: Room: [address] [place] [address] Type: ADM IN Attending Dr: Milton Londono MD Copies to: MD Milton Loaiza MD NO FAMILY PHYSICIAN~ Providers Consult Date: 10/20/23 Requesting Provider: Milton Londono MD Primary Care Provider: NO FAMILY PHYSICIAN HPI Reason for Consult: LILIANA on CKD History of Present Illness: This is a 88-year-old male with medical history of CAD s/p CABG, CKD, DM, HTN, HLD and A-fib was apparently noted above the hospital for chest pain. He had a EKG done which showed diffuse ST depression. He was found to have anemia with hemoglobin 8 g/dL. He also found to have abnormal renal function with elevated serum creatinine 3 mg/dL and BUN 65 mg/dL. His chest x-ray showed cardiomegaly with interstitial infiltrate possibly due to CHF versus a multifocal pneumonia. His white cell count was normal so no antibiotics were given. He was given blood transfusion and was transferred to the [facility] for further care. Patient reported to have a longstanding insulin-dependent type 2 diabetes mellitus and currently takes insulin. He denies any history of diabetic retinopathy. He reported that that he stopped following with his PCP and has not been seenclose to a year. On review record it appears the patient has a longstanding CKD and his serum creatinine was 2.1 mg in May 2023. He denies any evaluation by the contracts representative in the past. Nephrology is consulted for LILIANA on CKD. Patient was seen and examined bedside reported that his chest pain has improved. Review of Systems Review of Systems All other systems reviewed & are negative unless noted below or in HPI Review of systems: Cardiovascular: denies any chest pain, palpitation Pulmonary: denies any cough, hemoptysis Gastrointestinal: denies any nausea, vomiting, diarrhea Neurological :denies any headache, numbness, weakness Endocrine: denies any polyuria, polydipsia Dermatological: denies any itching or rash [facility] Medical History (Updated 10/20/23 @ 13:06 by Ly Sanderson MD) PVD (peripheral vascular disease) CHF (congestive heart failure) GERD (gastroesophageal reflux disease) Chronic anticoagulation Paroxysmal atrial fibrillation Vitamin D deficiency Hypothyroid Anemia in CKD (chronic kidney disease) CKD (chronic kidney disease) stage 3, GFR 30-59 ml/min BPH (benign prostatic hyperplasia) Depression Hyperlipidemia CAD (coronary artery disease) GERD (gastroesophageal reflux disease) Elbow fracture, right with surgery History of intestine removal Carotid artery disease with surgery HTN (hypertension) Diabetes Stroke DECEMBER 2019 Surgical History H/O carotid endarterectomy History of left hip replacement History of shoulder surgery left History of heart bypass surgery x4 Family History Father Family/Other Legacy FamHx Problem: 2 children , 1 sister , 3 brothers Mother Hypertension Diabetes Heart disease Cancer Legacy FamHx Problem: Diagnosed with Cancer Social History Smoking Status: Former smoker Tobacco Type: cigarettes Substance Use Type: None Social History Comments: lives with grandchild and great-grandchildren Meds Medications & Allergies Allergies codeine Allergy (Unknown, Unverified 11/30/21 10:24) Nightmare, bad dreams acetaminophen [From Tylenol] Adverse Reaction (Verified 11/30/21 10:24) Nightmare Home Medications atorvastatin 80 mg tablet 80 mg PO DAILY 06/09/20 [History Confirmed 11/30/21] clopidogrel 75 mg tablet 75 mg PO DAILY 06/09/20 [History Confirmed 10/20/23] acetaminophen 500 mg tablet 1,000 mg PO QHS 01/25/21 [History Confirmed 11/30/21] apixaban 2.5 mg tablet (Eliquis) 2.5 mg PO BID 01/25/21 [History Confirmed 10/20/23] canagliflozin 100 mg tablet (Invokana) 100 mg PO DAILY 01/25/21 [History Confirmed 11/30/21] cholecalciferol (vitamin D3) 125 mcg (5,000 unit) tablet (Vitamin D3) 125 mcg PODAILY 01/25/21 [History Confirmed 11/30/21] fluoxetine 10 mg capsule 10 mg PO DAILY 01/25/21 [History Confirmed 10/20/23] nitroglycerin 0.4 mg sublingual tablet 0.4 mg sublingual Q5-15M PRN Chest Pain 01/25/21 [History Confirmed 10/20/23] valsartan 80 mg tablet 80 mg PO DAILY 01/25/21 [History Confirmed 10/20/23] amiodarone 200 mg tablet 200 mg PO DAILY 12/01/21 [History Confirmed 10/20/23] amlodipine 5 mg tablet 5 mg PO DAILY 12/01/21 [History Confirmed 12/01/21] finasteride 5 mg tablet 5 mg PO QHS 12/01/21 [History Confirmed 12/01/21] isosorbide mononitrate 30 mg tablet,extended release 24 hr 30 mg PO DAILY 12/01/21 [History Confirmed 12/01/21] tamsulosin 0.4 mg capsule 0.4 mg PO DAILY 12/01/21 [History Confirmed 10/20/23] carvedilol 25 mg tablet 12.5 mg (1/2 x 25 mg) PO BID.PC.BKFAST.SUPPER #30 tabs 12/06/21 [Rx Confirmed 11/30/21] insulin aspar prot-insulin aspart 100 unit/mL (70-30) subcutaneous pen (Novolog Mix 70-30FlexPen U-100) 26 unit (0.26 mL) subcut BID.AC.BKFAST.SUPPER #0 mL 12/06/21 [Rx] insulin aspart U-100 100 unit/mL (3 mL) subcutaneous pen (Novolog FlexPen U-100 Insulin aspart) 0 units subcut ACHS #0 mL 12/06/21 [Rx] levothyroxine 75 mcg tablet 75 mcg PO DAILY.0630 #30 tabs 12/06/21 [Rx Confirmed 10/20/23] pantoprazole 40 mg tablet,delayed release 40 mg PO DAILY.AC.BKFAST #30 tabs 12/06/21 [Rx Confirmed 10/20/23] Active Medications: Active Medications Acetaminophen (Acetaminophen 325 Mg Tablet) 650 mg PO Q6HR PRN PRN Reason: Pain Scale 1 - 3 or fever Stop: 10/19/24 11:04 Amiodarone HCl (Amiodarone 200 Mg Tablet) 200 mg PO DAILY NILSON Stop: 10/20/24 08:59 Amlodipine Besylate (Amlodipine 5 Mg Tablet) 5 mg PO DAILY [facility] Stop: 10/20/24 08:59 Apixaban (Apixaban 2.5 Mg Tablet) 2.5 mg PO BID N[facility] Stop: 10/19/24 20:59 Atorvastatin Calcium (Atorvastatin 80 Mg Tablet) 80 mg PO DAILY [facility] Stop: 10/20/24 08:59 Carvedilol (Carvedilol 12.5 Mg Tablet) 12.5 mg PO BID.PC.BKFAST.SUPPER NILSON Stop: 10/19/24 17:59 Clopidogrel Bisulfate (Clopidogrel Bisulfate 75 Mg Tablet) 75 mg PO DAILY [facility] Stop: 10/20/24 08:59 Dextrose (Dextrose 50% In Water 25 Gm/50 Ml Syringe) 0 gm IV-PUSH PRN PRN PRN Reason: Hypoglycemia Stop: 10/19/24 12:08 Empagliflozin (Empagliflozin 10 Mg Tablet) 10 mg PO DAILY N[facility] Stop: 10/20/24 08:59 Finasteride (Finasteride 5 Mg Tablet) 5 mg PO QHS [facility] Stop: 10/19/24 21:59 Fluoxetine HCl (Fluoxetine 10 Mg Capsule) 10 mg PO DAILY [facility] Stop: 10/20/24 08:59 Glucose (Dextrose 40% Gel 15 Gm Tube) 0 gm PO PRN PRN PRN Reason: Hypoglycemia Stop: 10/19/24 12:08 Hydralazine HCl (Hydralazine 20 Mg/Ml Vial) 10 mg IV-PUSH Q4H PRN PRN Reason: Hypertension Stop: 10/19/24 11:09 Magnesium Sulfate (Magnesium Sulf 2gm-*Swfi*) 2 gm in 50 mls @ 25 mls/hr IV DAILY PRN PRN Reason: Magnesium Level < 1.5 Stop: 10/19/24 11:09 Insulin Aspart (Insulin Aspart 300 Units/3 Ml Insuln.Pen) 0 units SUBCUT TID.WM.HS [facility]; Protocol Stop: 10/19/24 16:59 Insulin Aspart Prota 70%/Aspart 30% (Insulin Aspart Protamin/Aspart 300 Units/3 Ml Insuln.Pen) 26 units SUBCUT BID.AC.BKFAST.SUPPER [facility] Stop: 10/19/24 16:29 Isosorbide Mononitrate (Isosorbide Mononitrate 24hr Er 30 Mg Tab.Er.24h) 30 mg PO DAILY [facility] Stop: 10/20/24 08:59 Labetalol HCl (Labetalol 100 Mg/20 Ml Vial) 5 mg IV-PUSH Q4H PRN PRN Reason: Hypertension Stop: 10/19/24 10:54 Levothyroxine Sodium (Levothyroxine 75 Mcg Tablet) 75 mcg PO DAILY.0630 [facility] Stop: 10/20/24 06:29 Melatonin (Melatonin 5 Mg Tablet) 5 mg PO QHS PRN PRN Reason: Insomnia Stop: 10/19/24 11:09 Morphine Sulfate (Morphine Sulfate 4 Mg/Ml Cartridge) 4 mg IV-PUSH Q4H PRN PRN Reason: Pain Scale 8 - 10 Nitroglycerin (Nitroglycerin 0.4 Mg Tab.Subl) 0.4 mg SUBLINGUAL Q5M PRN PRN Reason: Chest Pain Stop: 10/19/24 10:47 Ondansetron HCl (Ondansetron 4 Mg/2 Ml Vial) 4 mg IV-PUSH Q8H PRN PRN Reason: Nausea And Vomiting Stop: 10/19/24 11:04 Pantoprazole Sodium (Pantoprazole 40 Mg Tablet.Dr) 40 mg PO DAILY.AC.BKFAST [facility] Stop: 10/20/24 07:29 Potassium Chloride (Potassium Chloride Er 20 Meq Tab.Er.Prt) 40 meq PO DAILY PRN PRN Reason: Hypokalemia Stop: 10/19/24 11:09 Tamsulosin HCl (Tamsulosin 0.4 Mg Cap.Er.24h) 0.4 mg PO DAILY [facility] Stop: 10/20/24 08:59 Valsartan (Valsartan 80 Mg Tablet) 80 mg PO DAILY [facility] Stop: 10/20/24 08:59 Exam Physical Exam Vital Signs: Temp Pulse Resp BP Pulse Ox O2 Del Method 97.5 F L 69 22 111/71 95 Room Air 10/20/23 11:27 10/20/23 11:27 10/20/23 11:27 10/20/23 11:27 10/20/23 11:27 10/20/23 11:27 Narrative: General: Appears comfortable and not in distress Heart: S1-S2, no rub Lung: Bilateral air entry, no wheezing or crackles Abdomen: Soft, positive bowel sounds Extremities: No edema, no cyanosis Head: Atraumatic, normocephalic Ear: No gross hearing Deficit or external ear redness Eyes: No pallor or redness Neck: No JVD or visible mass Skin: No rashes , warm to touch NUCLEAR OFFICER: Awake,Alert, following simple command Musculoskeletal: No swelling or limitation of movement of the large joints Psychiatric: Cooperative, normal mood and affect Results - Nephrology Labs 10/20/23 12:47 10/20/23 12:47 Radiology Impressions Impressions - last 24 hours: Any impression(s) listed above is documentation that was entered by the reading physician into a diagnostic report(s) for Rachel Hollingsworth SR. I have reviewed the report(s) and am incorporating any findings in the treatment plan of this patient where applicable. A&P - Nephrology Assessment/Plan (1) Acute kidney injury superimposed on CKD: Assessment/Problem Details: He has LILIANA on CKD possibly due to the symptomatic anemia or cardiorenal in the setting of ACS. And the possibility is obstructive uropathy. (2) CKD (chronic kidney disease) stage 4, GFR 15-29 ml/min: Assessment/Problem Details: He has a CKD due to the longstanding DM and HTN baseline serum creatinine is around 2.1 mg/dL. (3) Anemia: Assessment/Problem Details: He has anemia and was transfused 1 unit of PRBC. Hemoglobin went up appropriately. (4) Type 2 diabetes mellitus with diabetic chronic kidney disease: Assessment/Problem Details: He has insulin-dependent type 2 diabetes mellitus was taking NovoLog at home. (5) Hypertensive chronic kidney disease with stage 1 through stage 4 chronic kidney disease, or unspecified chronic kidney disease: Assessment/Problem Details: Blood pressure is controlled. He was taking valsartan, amlodipine and carvedilol at home. Plan * No need for dialysis now. Will continue to assess its needs on regular basis. * Continue to hold home dose of the valsartan. * Monitor H&H. Continue to hold Eliquis and check stool occult blood. * Continue management of chest pain as per the cardiology. * Continue insulin adjust the dose as needed to keep the blood sugar between 100 150 mg/dL. * Check renal function daily and monitor input output * Thanks for consult. Will continue follow-up with your blood pressure free call us with any question. Documented By: Ly Sanderson MD 10/20/23 1239 Signed By: <Electronically signed by Ly Sanderson MD> 10/20/23 0792 [facility] Work Phone: 1(155) 273-942605-27-2024 History and physical note Author Dandre Oleary [facility] October 20, 2023 12:08pm Note Date/Time October 20, 2023 12:08 pm [facility] [address] [place] [address] Hospitalist H&P Signed Patient: Rachel Hollingsworth SR MR#: [id number] : 1935 Acct:[id number] Age/Sex: 88 / M Adm Date: 4 Loc: Room: [address] [place] [address] Type: ADM IN Attending Dr: Milton Londono MD Copies to: MD Dandre Mora MD NO FAMILY PHYSICIAN~ HPI DATE OF EXAMINATION: 10/20/23 CHIEF COMPLAINT: Midepigastric pain HISTORY OF PRESENT ILLNESS: Patient is a 88-year-old gentleman with past medical history of hypertension, paroxysmal atrial fibrillation on Eliquis, hyperlipidemia, coronary artery disease status post CABG in 2003, hypothyroidism, anemia of chronic kidney disease, BPH, insulin requiring diabetes mellitus, gastroesophageal reflux disorder came to the [facility] ER at midnight with mid epigastric pain which did not relieved with aspirin. Patient is a poor historian and on top he did not sleep well in the ER last night. He was falling asleep as I was talking to him here in 4P. Patient stated that he has been having intermittent chest pain for last 7 days which usually gets relieved with aspirin. He had some lightheadedness last night but no diaphoresis. He did not pass out. He lives with her granddaughter who is a nurse called 911 and patient was taken to the [facility] emergency department. As per ER report he had troponin 200+, chest x-ray shows pulmonary vascular congestion, he had elevated kidney functions and low H&H. Patient did receive 1 units of PRBC in the emergency department there. He denies any black tarry stool. However he tells me that due to his iron pills sometimes his stool looks dark to him. He denies any [id number] NSAIDs. At this moment patient does not have any further chest pain he seems rafael tired and wants to sleep. Patient stated that he was once told about sleep apnea diagnosis but he does not use currently any CPAP. I have reviewed his chart in [facility] EHR, there is no recent echocardiogram report. He had a BNP done in May 2023; at that time GFR was 29 with creatinine 2.15 Review of Systems Review of Systems All other systems reviewed & are negative unless noted below or in HPI Constitutional Constitutional: Denies body ache(s), Denies chills and Denies headache(s) Eyes Eyes: Denies blurry vision and Denies photophobia ENT Ears, Nose, Mouth, and Throat: Denies headache(s) Cardiovascular Cardiovascular: Denies chest pain, Denies dyspnea on exertion, Denies rapid heart rate and Denies syncope Respiratory Respiratory: Denies dyspnea on exertion and Denies hemoptysis Gastrointestinal Gastrointestinal: Denies hematochezia and Denies melena Musculoskeletal Musculoskeletal: Denies deformity and Denies muscle weakness Integumentary/Breasts Skin/Breast: Denies nail changes, Denies rash and Denies unusual bruising Neurologic Neurologic: Denies confusion, Denies convulsions, Denies headache(s), Denies memory loss and Denies syncope Psychiatric Psychiatric: Denies confusion, Denies hallucinations and Denies memory loss Endocrine Endocrine: Denies heat intolerance Hematologic/Lymphatic Hematologic/Lymphatic: Denies easy bruising [facility] Medical History (Updated 10/20/23 @ 12:04 by Dandre Oleary MD) PVD (peripheral vascular disease) CHF (congestive heart failure) GERD (gastroesophageal reflux disease) Chronic anticoagulation Paroxysmal atrial fibrillation Vitamin D deficiency Hypothyroid Anemia in CKD (chronic kidney disease) CKD (chronic kidney disease) stage 3, GFR 30-59 ml/min BPH (benign prostatic hyperplasia) Depression Hyperlipidemia CAD (coronary artery disease) GERD (gastroesophageal reflux disease) Elbow fracture, right with surgery History of intestine removal Carotid artery disease with surgery HTN (hypertension) Diabetes Stroke DECEMBER 2019 Surgical History H/O carotid endarterectomy History of left hip replacement History of shoulder surgery left History of heart bypass surgery x4 Family History Father Family/Other Legacy Famx Problem: 2 children , 1 sister , 3 brothers Mother Hypertension Diabetes Heart disease Cancer Legacy FamHx Problem: Diagnosed with Cancer Social History Smoking Status: Former smoker Tobacco Type: cigarettes Substance Use Type: None Social History Comments: lives with grandchild and great-grandchildren Meds Medications and Allergies Allergies codeine Allergy (Unknown, Unverified 11/30/21 10:24) Nightmare, bad dreams acetaminophen [From Tylenol] Adverse Reaction (Verified 11/30/21 10:24) Nightmare Home Medications atorvastatin 80 mg tablet 80 mg PO DAILY 06/09/20 [History Confirmed 11/30/21] clopidogrel 75 mg tablet 75 mg PO DAILY 06/09/20 [History Confirmed 10/20/23] acetaminophen 500 mg tablet 1,000 mg PO QHS 01/25/21 [History Confirmed 11/30/21] apixaban 2.5 mg tablet (Eliquis) 2.5 mg PO BID 01/25/21 [History Confirmed 10/20/23] canagliflozin 100 mg tablet (Invokana) 100 mg PO DAILY 01/25/21 [History Confirmed 11/30/21] cholecalciferol (vitamin D3) 125 mcg (5,000 unit) tablet (Vitamin D3) 125 mcg PODAILY 01/25/21 [History Confirmed 11/30/21] fluoxetine 10 mg capsule 10 mg PO DAILY 01/25/21 [History Confirmed 10/20/23] nitroglycerin 0.4 mg sublingual tablet 0.4 mg sublingual Q5-15M PRN Chest Pain 01/25/21 [History Confirmed 10/20/23] valsartan 80 mg tablet 80 mg PO DAILY 01/25/21 [History Confirmed 10/20/23] amiodarone 200 mg tablet 200 mg PO DAILY 12/01/21 [History Confirmed 10/20/23] amlodipine 5 mg tablet 5 mg PO DAILY 12/01/21 [History Confirmed 12/01/21] finasteride 5 mg tablet 5 mg PO QHS 12/01/21 [History Confirmed 12/01/21] isosorbide mononitrate 30 mg tablet,extended release 24 hr 30 mg PO DAILY 12/01/21 [History Confirmed 12/01/21] tamsulosin 0.4 mg capsule 0.4 mg PO DAILY 12/01/21 [History Confirmed 10/20/23] carvedilol 25 mg tablet 12.5 mg (1/2 x 25 mg) PO BID.PC.BKFAST.SUPPER #30 tabs 12/06/21 [Rx Confirmed 11/30/21] insulin aspar prot-insulin aspart 100 unit/mL (70-30) subcutaneous pen (Novolog Mix 70-30FlexPen U-100) 26 unit (0.26 mL) subcut BID.AC.BKFAST.SUPPER #0 mL 12/06/21 [Rx] insulin aspart U-100 100 unit/mL (3 mL) subcutaneous pen (Novolog FlexPen U-100 Insulin aspart) 0 units subcut ACHS #0 mL 12/06/21 [Rx] levothyroxine 75 mcg tablet 75 mcg PO DAILY.0630 #30 tabs 12/06/21 [Rx Confirmed 10/20/23] pantoprazole 40 mg tablet,delayed release 40 mg PO DAILY.AC.BKFAST #30 tabs 12/06/21 [Rx Confirmed 10/20/23] Exam Physical Exam Vital Signs: Temp Pulse Resp BP Pulse Ox O2 Del Method 97.5 F L 69 22 111/71 95 Room Air 10/20/23 11:10/20/23 11:10/20/23 11:10/20/23 11:10/20/23 11:10/20/23 11:27 Const General: cooperative, no acute distress and well hydrated Orientation: alert, awake and oriented x3 HEENT Head: normocephalic and atraumatic Face and sinus: normal facial exam and sinuses nontender Mouth: oral mucosae normal Eyes Conjunctivae: conjunctivae normal Sclera: sclerae normal Neck Thyroid: thyroid normal Carotids: normal carotid upstroke Lymphatic: no lymphadenopathy noted Resp Effort & Inspection: normal respiratory effort, able to speak in complete sentences and symmetric chest movement Auscultation: clear to auscultation bilaterally Cardio Palpation: normal PMI Rate: regular rate Rhythm: regular rhythm Heart Sounds: S1 normal and S2 normal Pulses: dorsalis pedis present GI Palpation: soft and no hepatosplenomegaly Auscultation: normal bowel sounds Skin General: no rashes or lesions noted and turgor normal Neuro General: tone normal and moves all extremities Speech: speech normal Motor: muscle tone normal throughout Sensory Exam: no sensory deficits noted Extrem General: full ROM Assessment & Plan Assessment/Plan (1) NSTEMI (non-ST elevated myocardial infarction): (2) CAD (coronary artery disease): (3) CKD (chronic kidney disease) stage 3, GFR 30-59 ml/min: (4) Diabetes: (5) Anemia in CKD (chronic kidney disease): (6) Hypertension: (7) Hypothyroid: (8) GERD (gastroesophageal reflux disease): Plan ON ADMISSION: 10/20/2023 Patient will be admitted under medical telemetry at stepdown unit for closer monitoring of cardiorespiratory and neurovascular status. At this moment patient appears to be chest pain-free and comfortable. He was somewhat euvolemic rather mildly dehydrated. I encouraged him to drink water. I will hold off giving him any IV fluid not knowing his latest ejection fraction. Echocardiogram has been ordered. Patient will have ACS protocol. We will get EKG, 3 sets of cardiac enzymes. We have also repeated CBC and CMP. It was reported that his hemoglobin was low so he received 1 unit of PRBC in [facility] ER. His home medications will be resumed. Diabetes will be managed with his home NovoLog Mix 70/30 and sliding scale with correcting regular insulin as per our hospital protocol. I will consult cardiology and also nephrology. DVT prophylaxis will be done with SCD. Patient is on Eliquis. GI prophylax will bedone with PPI. CODE STATUS full. Total time spent on this admission encounter was about 68 minutes. IP vs OBS Justification Based on differential dx, clinical care plan, and risk of adverse events, if untreated, in my clinical judgement this patient requires an acute care setting as: OBSERVATION because of an expectation of an under 2 midnight stay. Estimated length of stay (# of days): 2 Documented By: Dandre Oleary MD 10/20/23 1156 Signed By: <Electronically signed by Dandre Oleary MD> 10/20/23 1208 [facility] Work Phone: Evaluation note* Diagnosis Onset Date Resolution Status Acute kidney injury superimposed on CKD acute Anemia acute Anemia in CKD (chronic kidney disease) acute CAD (coronary artery disease) acute Chronic anticoagulation acut e CKD (chronic kidney disease) stage 3, GFR 30-59 ml/min acute CKD (chronic kidney disease) stage 4, GFR 15-29 ml/min acute Diabetes acute GERD (gastroesophageal reflux disease) acute Hyperlipidemia acute Hypertension acute [id number] acute Hypothyroid acute NSTEMI (non-ST elevated myocardial infarction) acute Paroxysmal atrial fibrillation acute Systolic heart failure acute Type 2 diabetes mellitus wit h diabetic chronic kidney disease acute Venous stasis dermatitis acu te [facility] Work Phone: Summary Purpose Family History No Family History [...] disease: Mother, Father, Sister, Brother(V17.49, Z82.49) Status:Active Relationship Condition Age at Onset Recorded Date/T vishal father Unknown family member Unknown Not Specified Hypertension Unknown Unknown Diabetes mellitus Unknown Heart disease Unknown Malignant neoplasm Unknown Advance Directives No Advanced Directives Records Found Advance Directive Response Recorded Date/ Time Advance Directives No June 09, 2020 10:59pm Chief Complaint RACHEL HOLLINGSWORTH is being seen for a 6 month follow-up of.Order sent to [facility] for testing due in April* RACHEL HOLLINGSWORTH is being seen for a 6 month [...] metabolicprofile next week. Amiodarone Order sent to [facility] for testing due in August- Chief Complaint and Reason for Visit Chief Complaint Chest Pain Chest Pain Chest Pain Chest Pain Chest Pain Reason for Visit Acute kidney injury superimposed on CKD Anemia Anemia in CKD (chronic kidney disease) CAD (coronary artery disease) Chronic anticoagulation CKD (chronic kidney disease) stage 3, GFR 30-59 ml/min CKD (chronic kidney disease) stage 4, GFR 15-29 ml/min Diabetes GERD (gastroesophageal reflux disease) Hyperlipidemia Hypertension [id number] Hypothyroid NSTEMI (non-ST elevated myocardial infarction) Paroxysmal atrial fibrillation Systolic heart failure Type 2 diabetes mellitus with diabetic chronic kidney disease Venous stasis dermatitis Additional Source Comments (unrecognized sect ion and content) No Status Records FoundNo Status Records FoundNo Status Records FoundNo Status Records FoundNo Status Records FoundNo Status Records FoundNo Status Records FoundNo Status Records Found INFORMATION SOURCE (unrecogn ized section and content) DATE CREATED AUTHOR 08/18/2018 [facility] DATE CREATED AUTHOR AUTHOR'S ORGANIZ ATION 01/26/2021 [facility] DATE CREATED AUTHOR AUTHOR'S ORGANIZ ATION 06/26/2021 [facility] DATE CREATED AUTHOR AUTHOR'S ORGANIZ ATION 09/21/2021 [facility] DATE CREATED AUTHOR AUTHOR'S ORGANIZ ATION 04/17/2022 [facility] DATE CREATED AUTHOR AUTHOR'S ORGANIZ ATION 05/21/2022 [facility] DATE CREATED AUTHOR AUTHOR'S ORGANIZ ATION 09/04/2023 [facility] DATE CREATED AUTHOR AUTHOR'S ORGANIZ ATION 11/04/2023 [facility] Care Teams (unrecognized sec tion and content) Team Status: Active Member Role Status Dates PHYSICIAN NO FAMILY Primary Care Provider Active Team Status: Inactive Member Role Status Dates PHYSICIAN NO FAMILY Primary Care Provider Active Start: October 20, 2023 End: October 31, 2023 Milton Londono MD Admit Provider Active Start: October 20, 2023 End: October 31, 2023 Scott Delgado MD Other Provider Active Start: ay 2023 End: October 31, 2023 Jamison Gutiérrez MD Other Provider Active Start: October 20, 2023 End: October 31, 2023 Brian Mc MD Other Provider Active Start : October 20, 2023 End: October 31, 2023 Emiliano Wallace APRN Other Provider Active St art: October 20, 2023 End: October 31, 2023 Kirk Tran MD Other Provider Active Start: October 20, 2023 End: October 31, 2023 Ave Cano DO Other Provider Active Start: October 20, 2023 End: October 31, 2023 Francia Kirby MD Attending Provider Active Star t: October 20, 2023 End: October 31, 2023 Team Status: Active Member Role Status Dates PHYSICIAN NO FAMILY Primary Care Provider Active Start: October 20, 2023 Milton Londono MD Admit Provide r, Other Provider Active Start: October 20, 2023 Ly Sanderson MD Attending Provider Active Start : October 20, 2023 Team Status: Active Member Role Status Dates PHYSICIAN NO FAMILY Primary Care Provider Active Start: October 20, 2023 Milton Londono MD Admit Provide r, Other Provider Active Start: October 20, 2023 Lizzette Raya RN Other Provider Active Star t: October 20, 2023 Jn Soliman MD Other Provider Active Start: M ay 2023 Benjamin Mora MD Other Provider Active Start: October 19 Kayleigh Stoner MD Attending Provider, Other Provider Active Start: October 20, 2023 Scott Delgado MD Other Provider Active Start: M ay 2023 Team Status: Active Member Role Status Dates PHYSICIAN NO FAMILY Primary Care Provider Active Start: October 24, 2023 Milton Londono MD Admit Provider Active Start: October 24, 2023 Scott Delgado MD Other Provider Active Start: M 2023 Lizzette Raya RN Other Provider Active Star t: October 24, 2023 Vj Hess DO Other Provider Active Start : October 24, 2023 Felice Lyons MD Other Provider Active Start: October 24, 2023 Sidney Chapman MD Other Provider Active Start: October 24, 2023 Harish Hartman MD Other Provider Active St art: October 24, 2023 Clem Crane MD Other Provider Active Start: October 24, 2023 Inocencia Durand APRN Other Provider Active Start : October 24, 2023 Monica Mobley MD Other Provider Active Start: M 2023 Eliecer Lackey MD Other Provider Active Start: October 24, 2023 Meenu Wynn MD Other Provider Active Start: [address] [facility]- Other Provider Active Sta rt: October 24, 2023 Norman Figueroa DO Other Provider Active Start: October 24, 2023 Jamison Gutiérrez MD Other Provider Active Start: October 24, 2023 Brian Mc MD Attending Provider, Other Provider Active Start: October 24, 2023 Emiliano Wallace , TONO Other Provider Active St art: October 24, 2023 Kirk Tran MD Other Provider Active Start: October 24, 2023 Ave Cano DO Other Provider Active Start: October 24, 2023 Team Status: Active Member Role Status Dates PHYSICIAN NO FAMILY Primary Care Provider Active Start: October 27, 2023 Milton Londono MD Admit Provider Active Start: October 27, 2023 Scott Delgado MD Other Provider Active Start: 2023 Jamison Gutiérrez MD Other Provider Active Start: October 27, 2023 Brian Mc MD Other Provider Active Start : October 27, 2023 Emiliano Wallace , FHA UNDERWRITER Other Provider Active St art: October 27, 2023 Kirk Tran MD Other Provider Active Start: Oct Ave Cano , DO Other Provider Active Start: October 27, 2023 Lizzette Raya RN Other Provider Active Star t: October 27, 2023 Vj Hess DO Other Provider Active Start : October 27, 2023 Felice Lyons MD Other Provider Active Start: October 27, 2023 Sidney Chapman MD Other Provider Active Start: October 27, 2023 Harish Hartman MD Other Provider Active St art: October 27, 2023 Clem Crane MD Other Provider Active Start: October 27, 2023 Inocencia Durand APRN Other Provider Active Start : October 27, 2023 Monica Mobley MD Other Provider Active Start: 2023 Eliecer Lackey MD Other Provider Active Start: October 27, 2023 Meenu Wynn MD Other Provider Active Start: 2023 Veronica Lim , [facility]- Other Provider Active Sta rt: October 27, 2023 Francia Kirby MD Other Provider Active Start: 2023 Tom Kelly MD Attending Provider Active Star t: October 27, 2023 FOR RECORDS PERTAINING TO PATIENTS WHO ARE [...] BE BASED ON THE PRIMARY CLINICAL RECORDS. [employer] provides no warranty or guarantee of the accuracy or completeness of information in this document.
[2023-11-04 20:51] LABS: INR 1.03; Prothrombin Time 10.9 sec (9.0-11.6)
[2023-11-04 21:01] LABS: Alanine Aminotransferase 25 U/L (16-63); Albumin Globulin Ratio 0.7; Albumin Level 2.9 g/dL (3.4-5.0); Alkaline Phosphatase 73 U/L (46-116); Anion Gap 13.1; Aspartate Amino Transferase 15 U/L (15-37); BUN Creatinine Ratio 26.1; Bilirubin Total 0.4 mg/dL (0.2-1.0); Calcium 8.9 mg/dL (8.5-10.1); Carbon Dioxide 25.8 mmol/L (21.0-32.0); Chloride 100 mmol/L (98-107); Estimated GFR (African America 24 (>=60); Estimated GFR (Non-African Ame 19 (>=60); Globulin 4.3 g/dL; Glucose 261 mg/dL (74-106); Potassium 4.9 mmol/L (3.5-5.1); Sodium 134 mmol/L (136-145); Total Protein 7.2 g/dL (6.4-8.2)
[2023-11-04 21:09] LABS: Troponin I High Sensitivity 190.1 pg/mL (4.0-76.1)
[2023-11-04] MEDS: FUROSEMIDE 40 MG/4 ML VIAL IVP (21:41)
[2023-11-04 23:19] LABS: ABG PCO2 49.4 mmHg (35.0-45.0); Allen Test POSITIVE (POSITIVE); Base Excess ABG -1.3 mmol/L (-2.0-2.0); Liters per Minute 8; O2 Mode SIMPLE MASK; Oxygen Saturation ABG 86.7 %; pH ABG 7.312 (7.350-7.450)
[2023-11-04 23:20] LABS: PO2 ABG 56.5 mmHg (80.0-100.0); Puncture Site R RADIAL
[2023-11-05] VITALS (102 sets, daily range): BP systolic 96–123; BP diastolic 53–74; PULSE 66–90; RESP 14; O2SAT 87–100
[2023-11-05 03:14] LABS: Troponin I High Sensitivity 220.9 pg/mL (4.0-76.1)
[2023-11-05] MEDS: FUROSEMIDE 20 MG/2 ML VIAL IVP (04:44)
[2023-11-05 07:34] LABS: Troponin I High Sensitivity 235.9 pg/mL (4.0-76.1)
[2023-11-05] MEDS: CLOPIDOGREL BISULFATE 75 MG TABLET PO (08:13)
[2023-11-05] MEDS: LEVOTHYROXINE SODIUM 125 MCG TABLET PO (08:13)
[2023-11-05] MEDS: CARVEDILOL 25 MG TABLET PO (08:14)
[2023-11-05] MEDS: ISOSORBIDE MONONITRATE 60 MG TAB.ER.24H 120 MG PO (08:14)
[2023-11-05] MEDS: TORSEMIDE 20 MG TABLET 40 MG PO (08:14)
[2023-11-05] MEDS: AMIODARONE HCL 200 MG TABLET PO (08:17)
[2023-11-05] MEDS: AMLODIPINE BESYLATE 5 MG TABLET PO (08:17)
[2023-11-05] MEDS: HYDRALAZINE HCL 25 MG TABLET PO (08:17)
[2023-11-05 08:25] LABS: Glucometer 110 mg/dL (74-106)
[2023-11-05 16:04] LABS: Glucometer 158 mg/dL (74-106)
[2023-11-05] MEDS: MORPHINE SULFATE 4 MG/ML VIAL IV (17:46)
--- NOTE | 2023-11-05 17:59 | ECG_ITS ---
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
== END 2023-11-05 19:08 | disposition short-term general hospital (02) ==
PROVIDERS: Emergency Medicine; Emergency Provider Emergency Medicine
DX: I50.9 Heart failure, unspecified (principal); N18.9 Chronic kidney disease, unspecified; R79.89 Other specified abnormal findings of blood chemistry; I25.10 Atherosclerotic heart disease of native coronary artery without angina pectoris; Z87.891 Personal history of nicotine dependence
CPT/HCPCS: 36415; 36600; 71045; 80053; 82805; 82948; 83880; 84484; 85025; 85610; 93005; 94660; 94799; 96374; 96375; 96376; 99285; J1940; J2270; J2405

== ENCOUNTER 2023-12-01 12:54 | Outpatient (REF) | payer MEDICARE, SELFPAY ==
[2023-12-01 13:21] LABS: Basophils Absolute Auto 0.1 10^3/uL (0.0-0.1); Basophils Percent Auto 0.9 % (0.2-2.0); Eosinophils Absolute Auto 0.4 10^3/uL (0.0-0.7); Eosinophils Percent Auto 6.5 % (0.9-7.0); Immature Granulocytes Abs Auto 0.04 10^3/uL (0.00-0.03); Immature Granulocytes Pct Auto 0.6 % (0.0-0.5); Lymphocytes Absolute Auto 1.6 10^3/uL (1.2-3.8); Lymphocytes Percent Auto 23.4 % (20.5-60.0); Mean Corpuscular HGB Conc 30.9 g/dL (29.9-35.2); Mean Corpuscular Hemoglobin 30.3 pg (25.9-34.0); Mean Corpuscular Volume 98.1 fL (80.0-94.0); Mean Platelet Volume 9.8 fL (9.5-13.5); Monocytes Absolute Auto 0.5 10^3/uL (0.3-0.8); Monocytes Percent Auto 6.9 % (1.7-12.0); Neutrophils Absolute Auto 4.1 10^3/uL (1.4-6.5); Neutrophils Percent Auto 61.7 % (43.0-75.0); Platelet Count 222 10^3/uL (150-450); Red Blood Count 2.08 10^6/uL (4.70-6.10); Red Cell Distribution Width 17.7 % (11.0-15.0); White Blood Count 6.7 10^3/uL (4.0-11.0)
[2023-12-01 13:46] LABS: Hematocrit 20.4 % (42.0-54.0); Hemoglobin 6.3 g/dL (14.0-18.0)
== END 2023-12-01 12:55 | disposition home or self-care (01) ==
LOC: LAB 12:54
PROVIDERS: Visit Provider Internal Medicine
DX: D64.9 Anemia, unspecified (principal)
CPT/HCPCS: 36415; 85025

== ENCOUNTER 2023-12-01 16:44 | Emergency (ER) | payer MEDICARE, SELFPAY ==
[2023-12-01] VITALS (12 sets, daily range): BP systolic 95–126; BP diastolic 45–78; PULSE 58–79; TEMP 36.4–37; O2SAT 97–100; BMI 31.0
--- NOTE | 2023-12-01 16:49 | ECG_ITS ---
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
[2023-12-01 17:27] LABS: Basophils Absolute Auto 0.1 10^3/uL (0.0-0.1); Basophils Percent Auto 0.9 % (0.2-2.0); Eosinophils Absolute Auto 0.4 10^3/uL (0.0-0.7); Eosinophils Percent Auto 6.3 % (0.9-7.0); Hemoglobin 7.6 g/dL (14.0-18.0); Immature Granulocytes Abs Auto 0.04 10^3/uL (0.00-0.03); Immature Granulocytes Pct Auto 0.6 % (0.0-0.5); Lymphocytes Absolute Auto 1.4 10^3/uL (1.2-3.8); Lymphocytes Percent Auto 20.7 % (20.5-60.0); Mean Corpuscular HGB Conc 31.9 g/dL (29.9-35.2); Mean Corpuscular Hemoglobin 30.6 pg (25.9-34.0); Mean Platelet Volume 9.5 fL (9.5-13.5); Monocytes Absolute Auto 0.5 10^3/uL (0.3-0.8); Monocytes Percent Auto 7.5 % (1.7-12.0); Neutrophils Absolute Auto 4.2 10^3/uL (1.4-6.5); Platelet Count 272 10^3/uL (150-450); Red Blood Count 2.48 10^6/uL (4.70-6.10); Red Cell Distribution Width 17.9 % (11.0-15.0); White Blood Count 6.5 10^3/uL (4.0-11.0)
[2023-12-01 17:31] LABS: Anion Gap 9.7; BUN Creatinine Ratio 11.4; Calcium 8.6 mg/dL (8.5-10.1); Carbon Dioxide 31.8 mmol/L (21.0-32.0); Chloride 94 mmol/L (98-107); Estimated GFR (African America 43 (>=60); Estimated GFR (Non-African Ame 35 (>=60); Glucose 86 mg/dL (74-106); Potassium 3.5 mmol/L (3.5-5.1); Sodium 132 mmol/L (136-145)
--- NOTE | 2023-12-01 17:37 | ED_ITS ---
HPI HPI - General Adult General Chief complaint: Weakness Stated complaint: Abnormal Labs Time Seen by Provider: 12/01/23 16:48 Source: patient Mode of arrival: ambulance Limitations: no limitations History of Present Illness HPI narrative: 88-year-old male to the emergency department with chief complaint of anemia. Patient went to [place] [facility] [place] today in [place]. They ran labs and found his hemoglobin to be low. He was sent to the emergency department for evaluation. Patient reports recent admission at [facility] for similar. He reports that he is bleeding internally but they could not tell him where. He reports feeling weak and tired. He did receive dialysis today, session was completed per his report. Related Data Home Medications ?Medication ?Instructions ?Recorded ?Confirmed amiodarone 200 mg tablet (Pacerone) 200 mg PO DAILY 01/24/23 11/04/23 carvedilol 25 mg tablet (Coreg) 25 mg PO BID 01/24/23 11/04/23 clopidogrel 75 mg tablet (Plavix) 75 mg PO DAILY 01/24/23 11/04/23 fluoxetine 10 mg capsule 10 mg PO DAILY 01/24/23 11/04/23 levothyroxine 75 mcg capsule 75 mcg PO DAILY 01/24/23 11/04/23 nitroglycerin 0.4 mg sublingual 0.4 mg sublingual Q5M PRN chest 01/24/23 11/04/23 tablet pain pantoprazole 40 mg tablet,delayed 40 mg PO Q12H 01/24/23 11/04/23 release (Protonix) tamsulosin 0.4 mg capsule (Flomax) 0.4 mg PO DAILY 01/24/23 11/04/23 amlodipine 5 mg tablet 5 mg PO DAILY 11/04/23 11/04/23 cholecalciferol (vitamin D3) 125 125 mcg PO DAILY 11/04/23 11/04/23 mcg (5,000 unit) capsule finasteride 5 mg tablet 5 mg PO DAILY 11/04/23 11/04/23 hydralazine 25 mg tablet 25 mg PO BID 11/04/23 11/04/23 insulin aspart U-100 100 unit/mL 1 sliding scale dose subcut 11/04/23 11/04/23 (3 mL) subcutaneous pen USEASDIRECTD insulin glargine 100 unit/mL (3 40 unit subcut BID 11/04/23 11/04/23 mL) subcutaneous pen (Basaglar KwikPen U-100 Insulin) isosorbide mononitrate 120 mg 120 mg PO QAM 11/04/23 11/04/23 tablet,extended release 24 hr levothyroxine 125 mcg tablet 125 mcg PO DAILY 11/04/23 11/04/23 (Euthyrox) torsemide 40 mg tablet (Soaanz) 40 mg PO QAM 11/04/23 11/04/23 ipratropium 0.5 mg-albuterol 3 mg 3 ml inhalation TID 11/05/23 11/05/23 (2.5 mg base)/3 mL nebulization soln Previous Rx's ?Medication ?Instructions ?Recorded atorvastatin 80 mg tablet 80 mg PO QPM #30 tabs 01/25/23 Allergies Allergy/AdvReac Type Severity Reaction Status Date / Time codeine Allergy Unknown Verified 11/04/23 20:26 codine Allergy Unknown Uncoded 01/23/23 19:28 Opioid HPI Opioid Management Most Recent Opioid Data: Last Pain Scale 8 11/05/23 17:46 Review of Systems ROS Status of ROS 10 or more systems reviewed and unremark able except as noted in history and below [facility] Medical History (Updated 12/01/23 @ 18:13 by Sam Shafer MD) Dyslipidemia ?E78.5 - Hyperlipidemia, unspecified (ICD-10) Paroxysmal atrial fibrillation ?I48.0 - Paroxysmal atrial fibrillation (ICD-10) Peripheral vascular disease ?I73.9 - Peripheral vascular disease, unspecified (ICD-10) Anemia in chronic kidney disease (CKD) ?N18.9 - Chronic kidney disease, unspecified (ICD-10) ?D63.1 - Anemia in chronic kidney disease (ICD-10) Stage 3b chronic kidney disease ?N18.32 - Chronic kidney disease, stage 3b (ICD-10) Coronary artery disease ?I25.10 - Atherosclerotic heart disease of platinum coronary artery without angina pectoris (ICD-10) Type 2 diabetes mellitus with hyperglycemia ?E11.65 - Type 2 diabetes mellitus with hyperglycemia (ICD-10) Chronic heart failure with preserved ejection fraction (HFpEF) ?I50.32 - Chronic diastolic (congestive) heart failure (ICD-10) Acute ischemic vertebrobasilar artery thalamic stroke ?I63.81 - Other cerebral infarction due to occlusion or stenosis of small artery (ICD-10) LILIANA (acute kidney injury) ?N17.9 - Acute kidney failure, unspecified (ICD-10) CHF (congestive heart failure) ?I50.9 - Heart failure, unspecified (ICD-10) Hypertension ?I10 - Essential (primary) hypertension (ICD-10) Diabetes ?E11.9 - Type 2 diabetes mellitus without complications (ICD-10) 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 - Stenosis of other vascular prosthetic devices, implants and grafts, initial encounter (ICD-10) TIA (transient ischemic attack) ?G45.9 - Transient cerebral ischemic attack, unspecified (ICD-10) Surgical History H/O shoulder surgery ?Z98.890 - Other specified postprocedural states (ICD-10) Hip joint replacement by other means ?Z96.649 - Presence of unspecified artificial hip joint (ICD-10) Family History Mother Family history of CHF (congestive heart failure) Family history of hypertension Family history of myocardial infarction Father Family history of CHF (congestive heart failure) Family history of COPD (chronic obstructive pulmonary disease) Family history of cancer Family history of diabetes mellitus Family history of hypertension Family history of myocardial infarction Son Family history of cancer Family history of diabetes mellitus Social History Within the past year, how often did you have a drink containing alcohol: never Within the past year, how often did you have six or more drinks on one occasion: never Score interpretation: A score less than 4 is consistent with normal alcohol consumption. 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 Known occupational exposures/hazards: No Highest level of school completed/degree received: 9th grade Are you now , , , , never or living with a partner: In a typical week, how many times do you talk on the telephone with family, friends, or neighbors: never How often do you get together with friends or relatives: never How often do you attend baptism or tenriism services: never Do you belong to any clubs or organizations such as baptism groups unions, fraternal or athletic groups, or school groups: no Total score: 0 Score interpretation: A score of less than or equal to 1 indicates the most socially isolated. Little interest or pleasure in doing things: nearly every day Feeling down, depressed, or hopeless: nearly every day Feel stressed/tense/nervous/anxious/difficulty sleeping: only a little Life stressors: recent of family or friend Life stressor details: brothers Do you think of yourself as: straight/heterosexual Gender Identity: male Exam Narrative Exam Narrative: VITALS: I have reviewed the triage vital signs. GENERAL: Well developed, well appearing adult in no acute distress. NEURO: Alert and oriented. Moves all extremities. Face is symmetric and expressive. EYES: PERRL. No scleral icterus or conjunctival injection. No discharge. HENT: Normocephalic, atraumatic. Hearing is grossly intact. Nares grossly patent and without discharge. Mucous membranes moist. NECK: No JVD. Patient moves neck without restriction. CARDIO: Rhythm regular. Normal rate. No murmur, rub, or gallop. Pulses equal bilaterally in the upper and lower extremity. No lower extremity edema. PULM: Lungs clear to auscultation in all aguero. No wheezes, rales, or rhonchi. No conversational dyspnea. No splinting, stridor, or accessory muscle use. GI/: Abdomen is soft and non-tender. Normoactive bowel sounds. EXTREMITIES: Symmetric muscle bulk. No joint swelling. No clubbing, cyanosis, or deformity. SKIN: Warm and dry. Normal turgor. No rash or lesions appreciated. PSYCH: Mood, affect, and interaction is appropriate to the setting. Constitutional Vital Signs, click to edit/add: Last Vital Signs Temp 97.8 F 12/01/23 16:46 Pulse 75 12/01/23 16:46 Resp 18 12/01/23 16:46 BP 119/78 12/01/23 16:46 Pulse Ox 99 12/01/23 16:46 O2 Del Method Room Air 12/01/23 16:46 Course Vital Signs Vital signs: Vital Signs Temperature 97.8 F 12/01/23 16:46 Pulse Rate 75 12/01/23 16:46 Respiratory Rate 18 12/01/23 16:46 Blood Pressure 119/78 12/01/23 16:46 Pulse Oximetry 99 12/01/23 16:46 Oxygen Delivery Method Room Air 12/01/23 16:46 Temperature 97.8 F 12/01/23 16:46 Pulse Rate 75 12/01/23 16:46 Respiratory Rate 18 12/01/23 16:46 Blood Pressure 119/78 12/01/23 16:46 Pulse Oximetry 99 12/01/23 16:46 Oxygen Delivery Method Room Air 12/01/23 16:46 Medical Decision Making MDM Narrative Medical decision making narrative: 88-year-old male to the emergency department chief complaint of acute on chronic anemia. Vital stable, the patient is afebrile. Please labs, type and screen ordered.No evidence of active bleeding. No chest pain or shortness of breath. Patient agrees with this plan. Repeat hemoglobin 7.6. I did call and discussed with the on-call family specialist for the patient's nephrology group Dr. Delgado. He recommended transfusion of 1 unit of packed red blood cells. They will follow-up with the patient in the outpatient setting. Discussed recommendation for blood transfusion with the patient. He is agreeable with this plan. Will give you 1 unit of packed red blood cells. If he tolerates this well and there is no complication he may be discharged back to his facility. Care was signed out to Dr. Lee. Medical Records Medical records reviewed: Yes I reviewed the patient's medical records Lab Data Lab results reviewed: Yes I reviewed the patient's lab results Labs: Lab Results 12/01/23 Range/Units 17:13 WBC 6.5 (4.0-11.0) 10^3/uL RBC 2.48 L (4.70-6.10) 10^6/uL Hgb 7.6 L (14.0-18.0) g/dL Hct 23.8 L* (42.0-54.0) % MCV 96.0 H (80.0-94.0) fL MCH 30.6 (25.9-34.0) pg MCHC 31.9 (29.9-35.2) g/dL RDW 17.9 H (11.0-15.0) % Plt Count 272 (150-450) 10^3/uL MPV 9.5 (9.5-13.5) fL Neut % (Auto) 64.0 (43.0-75.0) % Lymph % (Auto) 20.7 (20.5-60.0) % [place] % (Auto) 7.5 (1.7-12.0) % Eos % (Auto) 6.3 (0.9-7.0) % Baso % (Auto) 0.9 (0.2-2.0) % Neut # (Auto) 4.2 (1.4-6.5) 10^3/uL Lymph # (Auto) 1.4 (1.2-3.8) 10^3/uL [place] # (Auto) 0.5 (0.3-0.8) 10^3/uL Eos # (Auto) 0.4 (0.0-0.7) 10^3/uL Baso # (Auto) 0.1 (0.0-0.1) 10^3/uL Abs Immat Gran (auto) 0.04 H (0.00-0.03) 10^3/uL Imm/Tot Granulo (auto) 0.6 H (0.0-0.5) % Sodium 132 L (136-145) mmol/L Potassium 3.5 (3.5-5.1) mmol/L Chloride 94 L (98-107) mmol/L Carbon Dioxide 31.8 (21.0-32.0) mmol/L Anion Gap 9.7 BUN 21.0 H (7.0-18.0) mg/dL Creatinine 1.84 H (0.70-1.30) mg/dL Est GFR ( Amer) 43 L (>=60) Est GFR (Non-Af Amer) 35 L (>=60) BUN/Creatinine Ratio 11.4 Glucose 86 (74-106) mg/dL Calcium 8.6 (8.5-10.1) mg/dL Blood Type A Positive Antibody Screen Negative ECG Data Attestation: I personally reviewed and interpreted this ECG as follows: (Atrial fibrillation at a rate of 86. No STEMI. Right bundle branch block. Mildly prolonged QTc) Critical Care Time Critical Care Time Critical Care Time: Yes Total Critical Care Time: 30 Attestation: Critical Care Procedure Note Authorized and Performed by: Sam Shafer DO Total critical care time: 30 minutes Due to a high probability of clinically significant, life threatening deterioration, the patient required my highest level of preparedness to intervene emergently and I personally spent this critical care time directly and personally managing the patient. This critical care time included obtaining a history; examining the patient; pulse oximetry; ordering and review of studies; arranging urgent treatment with development of a management plan; evaluation of patient's response to treatment; frequent reassessment; and, discussions with other providers. This critical care time was performed to assess and manage the high probability of imminent, life-threatening deterioration that could result in multi-organ failure. It was exclusive of separately billable procedures and treating other patients and teaching time. Please see MDM section and the rest of the note for further information on patient assessment and treatment. Discharge Plan Discharge Chief Complaint: Weakness Clinical Impression: Anemia, ESRD (end stage renal disease) Patient Disposition: Still a Patient Prescriptions / Home Meds: No Action amiodarone [Pacerone] 200 mg tablet 200 mg PO DAILY carvedilol [Coreg] 25 mg tablet 25 mg PO BID Rx Instructions: must administer with a meal/food clopidogrel [Plavix] 75 mg tablet 75 mg PO DAILY fluoxetine 10 mg capsule 10 mg PO DAILY levothyroxine 75 mcg capsule 75 mcg PO DAILY nitroglycerin 0.4 mg tablet, sublingual 0.4 mg sublingual Q5M PRN (Reason: chest pain) Rx Instructions: do not exceed 3 doses per episode pantoprazole [Protonix] 40 mg tablet,delayed release (DR/EC) 40 mg PO Q12H tamsulosin [Flomax] 0.4 mg capsule 0.4 mg PO DAILY atorvastatin 80 mg tablet 80 mg PO QPM Qty: 30 0RF amlodipine 5 mg tablet 5 mg PO DAILY cholecalciferol (vitamin D3) 125 mcg (5,000 unit) capsule 125 mcg PO DAILY finasteride 5 mg tablet 5 mg PO DAILY hydralazine 25 mg tablet 25 mg PO BID insulin aspart U-100 100 unit/mL (3 mL) insulin pen 1 sliding scale dose subcut USEASDIRECTD isosorbide mononitrate 120 mg tablet extended release 24 hr 120 mg PO QAM levothyroxine [Euthyrox] 125 mcg tablet 125 mcg PO DAILY Soaanz 40 mg tablet 40 mg PO QAM insulin glargine [Basaglar KwikPen U-100 Insulin] 100 unit/mL (3 mL) insulin pen 40 unit subcut BID ipratropium-albuterol 0.5 mg-3 mg(2.5 mg base)/3 mL solution for nebulization 3 ml inhalation TID Print Language: Polish Referrals: Physician,Non-Staff, MD [Primary Care Provider] - 1 week
[2023-12-01 17:45] LABS: Hematocrit 23.8 % (42.0-54.0)
[2023-12-01] MEDS: ACETAMINOPHEN 325 MG TABLET 650 MG PO (20:33)
== END 2023-12-01 21:32 | disposition home or self-care (01) ==
PROVIDERS: Student in an Organized Health Care Education/Training Program; Emergency Provider Internal Medicine
DX: D64.9 Anemia, unspecified (principal); Z87.891 Personal history of nicotine dependence; N18.6 End stage renal disease; Z63.4 Disappearance and death of family member
CPT/HCPCS: 36415; 36430; 80048; 85025; 86850; 86900; 86901; 93005; 99285; P9016

== ENCOUNTER 2023-12-05 14:49 | Outpatient (REF) | payer MEDICARE, SELFPAY ==
[2023-12-05 15:00] LABS: Hemoglobin 7.8 g/dL (14.0-18.0)
== END 2023-12-05 14:50 | disposition home or self-care (01) ==
LOC: LAB 14:49
PROVIDERS: Visit Provider Internal Medicine Nephrology
DX: D64.9 Anemia, unspecified (principal)
CPT/HCPCS: 36415; 85018